=== PATIENT | male | born 1965 | race Caucasian/White ===

== ENCOUNTER 2018-11-20 12:02 | Inpatient (IN) ==
[2018-11-20 12:56] LABS: Alanine Aminotransferase 15 U/L (12-78); Aspartate Aminotransferase 41 U/L (15-37); Blood Urea Nitrogen 44 mg/dl (7-18); Carbon Dioxide 27 mmol/L (21-32); Chloride 97 mmol/L (98-107); Creatinine Clr Calc Pharmacy 38.4 ml/min; Est GFR (African American) 30.8; Est GFR (Non-African American) 26.6; Glucose 78 mg/dl (70-99); Magnesium 1.8 mg/dl (1.8-2.4); Potassium 5.3 mmol/L (3.5-5.1); Sodium 132 mmol/L (136-145)
[2018-11-20 12:56] LABS: Appearance Urine Cloudy (Clear); Bacteria Urine Automated Negative (Negative); Blood Urine Negative (Negative); Color Urine Dark Yellow; Epithelial Cell Urine Auto 20-30 /lpf (0-5); Glucose Urine UA Negative (Negative); Ketones Urine Trace (Negative); Leukocyte Esterase Urine Trace (Negative); Nitrite Urine Positive (Negative); Protein Urine 2+ (Negative); RBC Urine Automated 0-4 /hpf (0-4); Specific Gravity Urine 1.017 (1.000-1.030); Urobilinogen Urine Negative (Negative)
[2018-11-20 12:57] LABS: Hematocrit (blood only) 37.1 % (42-52); Hemoglobin 12.4 g/dL (14.0-18.0); INR 1.2 (0.9-1.1); Mean Corpuscular Hgb Conc 33.4 g/dL (32-36); Mean Platelet Volume 8.9 fL (7.4-10.4); Partial Thromboplastin Ratio 1.2; Partial Thromboplastin Time 31.7 Seconds (21.0-31.0); Platelet Count 61 K/uL (130-400); Prothrombin Time 12.5 Seconds (9.0-12.0); RDW Coefficient of Variation 17.9 % (11.5-14.5); RDW Standard Deviation 61.3 fL (36.4-46.3); Red Blood Count 3.99 M/uL (4.7-6.1); White Blood Count 15.27 K/uL (4.8-10.8)
[2018-11-20 13:01] LABS: Albumin Globulin Ratio 0.5 (0.9-2); Alkaline Phosphatase 60 U/L (45-117); Bilirubin,Total 0.6 mg/dl (0.2-1); Troponin I < 0.015 ng/ml (0-0.045)
[2018-11-20 13:04] LABS: Bilirubin Urine Negative (Negative); Ictotest Urine Negative (Negative)
--- NOTE | 2018-11-20 13:37 | CT Scan Report ---
CT OF THE HEAD WITHOUT CONTRAST CLINICAL HISTORY: Altered mental status. COMPARISON STUDY: Head CT April 18, 2018. TECHNIQUE: Helical axial images of the head were obtained without IV contrast. Automated exposure con trol was utilized for the study. A dose lowering technique was utilized adhering to the principles o f ALARA. FINDINGS: No acute intracranial hemorrhage, midline shift or mass effect is present. The ventricular system is unremarkable. The basilar cisterns are patent. No extra-axial collections are present. Ther e are no findings to suggest acute dural sinus thrombosis or acute territorial infarct. No significan t calvarial abnormalities are present. Visualized portions of the sinuses and mastoid air cells are c lear. Exam is mildly compromised by motion artifact. IMPRESSION: No acute intracranial findings. Electronically signed by: José Manuel Schmitz M.D. 11/20/2018 1:36 PM
[2018-11-20 13:45] LABS: Basophils # (auto) 0.01 K/uL (0-0.2); Basophils % (auto) 0.1 %; Eosinophils # (auto) 0.01 K/uL (0-0.5); Eosinophils % (auto) 0.1 %; Immature Granulocytes # (auto) 0.41 K/uL (0.00-0.02); Immature Granulocytes % (auto) 2.7 %; Lymphocytes # (auto) 1.01 K/uL (1.2-3.4); Lymphocytes % (auto) 6.6 %; Monocytes # (auto) 1.63 K/uL (0.11-0.59); Monocytes % (auto) 10.7 %; Neutrophils % (auto) 79.8 %
--- NOTE | 2018-11-20 13:46 | CT Scan Report ---
ABDOMEN AND PELVIS CT WITHOUT CONTRAST CT DOSE: 3324.64 mGy.cm HISTORY: Acute upper abdominal pain with history of nephrolithiasis upper abd pain eval for stone TECHNIQUE: Multiaxial CT images of the abdomen and pelvis were performed without contrast. A dose lo wering technique was utilized adhering to the principles of ALARA. COMPARISON STUDY: CT abdomen and pelvis 10/23/2013 FINDINGS: Trace pleural effusions with patchy left basilar groundglass and consolidative opacities. Mild subseg mental right basilar atelectasis. Study is limited without use of IV contrast and also secondary to p ositioning of the patient's upper extremities. No pneumatosis or pneumoperitoneum. Imaged inferior ca rdiac chambers are enlarged with coronary arterial calcifications noted. Increased density of the gallbladder lumen is suggestive of probable gallbladder sludge. The liver, s pleen and adrenal glands are unremarkable. Moderate interstitial and peripancreatic edema is noted. N o acute peripancreatic fluid collection identified. Trace abdominopelvic ascites. Kidneys, and ureter s appear unremarkable. No renal or ureteral calculi. Decompressed urinary bladder with Henderson catheter in place. Air within the urinary bladder is likely secondary to instrumentation. Moderate calcified plaque of the abdominal aorta with mild tortuosity. No aneurysm. No adenopathy by CT size criteria. Mild wall thickening of the duodenum, likely reactive. No bowel junction. Colonic diverticulosis with out definitive CT evidence of acute diverticulitis. There is no significant bowel wall thickening tad ntified. Terminal ileum is unremarkable. Gynecomastia. Chronic right hip dislocation with extensive p eriarticular ossifications and large right hip joint effusion. Multilevel degenerative changes of the spine with additional degenerative changes of the left hip and pelvis. IMPRESSION: 1. Findings compatible with acute pancreatitis. No acute peripancreatic fluid collection identified. 2. Trace pleural effusions with trace abdominopelvic ascites. 3. Mild wall thickening of the duodenum, likely reactive. 4. No bowel obstruction, pneumatosis or pneumoperitoneum. 5. Colonic diverticulosis. 6. No renal or ureteral calculi or obstructive uropathy. 7. Additional findings as above. Electronically signed by: Omid Zamora M.D. 11/20/2018 1:45 PM
[2018-11-20] MEDS ORDERED: PIPERACILLIN/TAZOBACTAM 4.5 GM/120 ML BAG IV ONE (13:58)
[2018-11-20] MEDS ORDERED: PIPERACILL/TAZOBAC CONSULT ACTIVE PRN ×2 (13:58→15:55)
[2018-11-20] MEDS ORDERED: NovoLIN-R INSULIN PER UNIT CHARGE IV STA (14:02)
[2018-11-20] MEDS ORDERED: DEXTROSE 50% 50 ML SYRINGE IV STA (14:02)
[2018-11-20] MEDS ORDERED: ALBUTEROL 0.083% NEBU SOLN 3 ML VIAL NEB STA (14:02)
[2018-11-20] MEDS ORDERED: SODIUM CHLORIDE 0.9% 1000ML 1,000 ML IV ONE ×2 (14:03→22:45)
--- NOTE | 2018-11-20 14:34 | XRay Report ---
XR chest 1V portable HISTORY: Altered mental status. COMPARISON: Chest 04/18/2018. FINDINGS: There are low lung volumes. The heart remains enlarged. Chronic subluxation of the bilatera l shoulders remains unchanged. Trace left pleural effusion. Mild central pulmonary vascular congestio n without overt edema. Patchy densities in the left lung base. Questionable lucency within the latera l aspect of the right lung is likely a skinfold. Old, healed bilateral rib fractures. IMPRESSION: 1. Left basilar patchy densities and a trace left pleural effusion. This could represent a pneumonia. 2. Chronic subluxation of the bilateral shoulders is again noted. This remains unchanged. Electronically signed by: Asad Terrazas M.D. 11/20/2018 2:32 PM
--- NOTE | 2018-11-20 15:04 | History & Physical Report ---
Date of Service November 20, 2018 Assessment & Plan (1) Acute metabolic encephalopathy: (2) Pancreatitis: (3) Pneumonia: This is a 53 yr old M who has a significant pmh of HTN, HLD, CKD-3, Vasculitis on chronic prednisone therapy, bipolar depression, post traumatic seizure disorder, chronic thrombocytopenia, RBBB who presents to [facility] ED secondary to altered mental status and abdominal pain x 1 day. In ED pt was alert but confused GCS 11 Hemodynamically patient was stable WBC elevated 15.27, H&H 12.4 and 37.1, platelets 61, sodium 132, potassium 5.3, BUN 44, creatinine 2.6 Lactic acid slightly elevated 2.16, AST 41 but otherwise normal LFTs CT head negative for any acute abnormality CT abdomen pelvis revealed acute pancreatitis, trace pleural effusion and trace abdominal pelvic ascites, gallbladder sludge, diverticulosis Chest x-ray concerning for left basilar opacity and pleural effusion possibly consistent with pneumonia Urinalysis does have positive leukoesterase and nitrites, but negative bacteria -Per patient's sister he has history of UTI which presents as confusion Patient does not meet Sepsis Criteria admit to PCU, continue neurochecks Continue IV antibiotics with Zosyn, obtain mRSA nasal swab if negative will not cover for MRSA given concern for SHIELA NPO - convert levothyroxine and depakote to IV IVF D5NS 150cc/hr due to acute pancreatitis - monitor closely for volume overload follow bmp and lipase levels Abd U/S Limited to RUQ to r/o gall bladder pathology as etiology of pancreatitis - currently unknown no ETOH or NSAID obtain NH3, blood cultures repeat lactic acid and bmp check am cortisol level r/o adrenal insuff consider polypharmacy as etiology of metabolic encephalopathy (4) Acute renal failure superimposed on stage 3 chronic kidney disease: Baseline creatinine 2.0 BUN/creatinine 44 and 2.60 today IVF ordered Follow BMP, repeat today 8 p.m. If no improvement consider consulting nephrology in a.m. Urine sodium, urine creatinine, protein to creatinine ratio, serum osm, urine osm ordered (5) Electrolyte abnormality: Na 132, K 5.3 likely in setting of SHIELA; however keep adrenal insuff on differential am cortisol level repeat bmp 8pm (6) Hypertension: Blood pressure stable On carvedilol will hold on p.o. (7) Hypothyroidism: Continue levothyroxine, convert IV (8) Bipolar disorder: Continue Depakote, will convert to IV while n.p.o. Hold Risperdal for now resume when able to tolerate p.o. or consider conversion to IM (9) Thrombocytopenia: Platelet count stable at 61 Chronically runs between 60 and 100 Had peripheral smear done in admission 04/2018 which was unrevealing (10) DVT prophylaxis: SCDS/TEDS Avoid chemical prophylaxis in setting of platelets 61, chronic thrombocytopenia Disposition: admit to PCU, discharge to be determined Follow up: PCP Dr. Dean upon discharge Patient was seen and examined in collaboration with Dr. Reagan, please see addendum Starting 11/21/18 pt will be under the care of Dr. Leyva History of Present Illness Chief Complaint: Abdominal pain Primary Care Provider: Don Watters MD This is a 53 yr old M who has a significant pmh of HTN, HLD, CKD-3, Vasculitis on chronic prednisone therapy, bipolar depression, post traumatic seizure disorder, chronic thrombocytopenia, RBBB who presents to [facility] ED secondary to altered mental status and abdominal pain. Sister is at bedside and provides history. Pt history unreliable given confusion. He was last known well yesterday morning. Sister saw him this morning and felt him to have increased confusion, "this is how he gets when he has a UTI," difficulty with ADLS, weakness and pt was complaining of abdominal pain. She is aware he had a BM prior to arrival but is unsure if any diarrhea. Denies any f/c/s, syncope, vomitting, complaints of chest pain, sob, palpitations. Pt is mostly confined to a hover round but is able to ambulate with walker to assist with adls. He is functional but disabled at baseline. He has a hx of narcotic overdose and currently does not take any narcotics. Has a medication lock box that dispenses his medications and sister assists with this. Sister denies any known seizures, last 10 years ago had grand mal secondary to trauma, none since. Has been consistent with medications including depakote and risperdal for bipolar. History, PMH, Surgical hx, SH and FH difficulty/unable to obtain secondary to confusion. Obtained from [facility] records Allergies Allergy/AdvReac Type Severity Reaction Status Date / Time aspirin Allergy Unknown Nothing Verified 04/18/18 14:45 with Aspirin. bacitracin Allergy Unknown Rash Verified 04/18/18 14:45 Cephalosporins Allergy Unknown Unknown Verified 04/18/18 14:45 doxycycline Allergy Unknown . Verified 04/18/18 14:45 furosemide Allergy Unknown Oral Verified 04/18/18 14:45 solution - rash levofloxacin Allergy Unknown Rash Verified 04/18/18 14:45 neomycin Allergy Unknown Rash Verified 04/18/18 14:45 polymyxin B Allergy Unknown Rash Verified 04/18/18 14:45 Sulfa (Sulfonamide Allergy Unknown Bactrim - Verified 04/18/18 14:45 Antibiotics) rash. moxifloxacin Allergy Unknown Unverified 04/18/18 14:45 sulfamethoxazole Allergy Unknown Unverified 04/18/18 14:58 [From Bactrim] trimethoprim [From Bactrim] Allergy Unknown Unverified 04/18/18 14:58 Home Medications Home Medications Medication Instructions Recorded Confirmed Type ascorbic acid (vitamin C) [Vitamin 1,000 mg PO DAILY 02/10/18 11/20/18 History C] divalproex 1,000 mg PO BID 02/10/18 11/20/18 History imipramine HCl 25 mg PO TID 02/10/18 11/20/18 History levothyroxine 125 mcg PO QAM 02/10/18 11/20/18 History carvedilol 12.5 mg PO BIDM 04/18/18 11/20/18 History cyanocobalamin (vitamin B-12) 1,000 mcg PO DAILY 04/18/18 11/20/18 History [Vitamin B-12] omega 3-wpe-zec-fish oil [Fish Oil] 1,000 mg PO DAILY 04/18/18 11/20/18 History ranitidine HCl 150 mg PO HS 04/18/18 11/20/18 History risperidone 1 mg PO BID 04/18/18 11/20/18 History vitamin E 400 unit PO DAILY 04/18/18 11/20/18 History prednisone 5 mg PO DAILY 04/23/18 11/20/18 History calcium carbonate-vitamin D3 1 tab PO DAILY 11/20/18 11/20/18 History [Calcium 600 + D(3)] duloxetine [Cymbalta] 60 mg PO DAILY 11/20/18 11/20/18 History Past Med/Surg History Medical History Hypothyroidism (Chronic) Hyperprolactinemia (Chronic) Vasculitis (Chronic) CKD (chronic kidney disease), stage III (Chronic) ALKA (iron deficiency anemia) (Chronic) Post-traumatic seizures (Chronic) Hypertension (Chronic) Chronic pain (Chronic) Bipolar disorder (Chronic) RBBB (Chronic) Hyperlipidemia (Chronic) JHOANA (obstructive sleep apnea) (Chronic) does not use cpap or bipap Reflux esophagitis (Chronic) Goiter (Chronic) 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) Hypertension (Inactive) Surgical History History of fasciotomy (Chronic) History of tracheostomy (Chronic) History of total right hip arthroplasty (Chronic) Family History Other Family history unobtainable due to patient's condition Social History Preferred Language: Wolof Communication Ability: Impaired Shipping And Receiving Associate Required: No Beliefs That Will Affect Care: None Current Living Situation: Family Current Living Situation Comment: Staying in shed at sister's house Other Information That Helps Us Care for You: No Feels Safe at Home: Declines to Answer Smoking Status: Never smoker Tobacco Type: cigarettes and smokeless tobacco Do You Dip or Chew Tobacco: No Second Hand Exposure: No Tobacco Cessation Education Requested by Patient: No Hx Alcohol Use: No Hx Substance Use: No Review of Systems Review of Systems: As noted per HPI, 10 systems reviewed and negative unless noted above. Physical Exam Physical Exam: Gen: Morbidly obese, chronically ill M, lying in bed, confused, unable to answer questions approp Head: Normocephalic, Atraumatic Eyes: Sclera normal, no conjunctival injection, PERRLA, EOMI ENT: Gross hearing intact, normal pharynx, mucous membranes dry Neck: supple, no adenopathy, No JVD, no bruit, Resp: Clear to auscultation b/l with decreased bs at bases and basilar crackles, poor insp effort, no wheeze or rhonci. Normal insp/exp effort, no accessory muscle use CV: Regular rate, regular rhythm, no murmur, rub, gallop, or ectopy Abd: Obese abdomen, tender diffusely with palpation however abdomen soft, nondistended, no rigidity, guarding, rebound +BS x 4 Musculoskeletal: moves extremities active rom x 4, unable to assess strength due to AMS Extremities: ++ Edema b/l pretibial and pedal Skin: warm, moist, no rash, negative turgor, cap refill < 2sec Neuro: Alert and oriented to self only, speech normal, flat mood/affect, cran nerve 2-12 intact grossly : + rubin draining clear yellow urine Results & Data Vital Signs (Past 12 Hours) Vital Signs Temp Pulse Pulse Resp BP Pulse Ox 11/20/18 14:34 77 16 93 11/20/18 12:22 96 11/20/18 12:15 36.3 C L 67 22 130/82 96 Laboratory Results Short CBC 11/20/18 11/20/18 Range/Units 12:20 12:20 WBC 15.27 H (4.8-10.8) K/uL Hgb 12.4 L (14.0-18.0) g/dL Hct 37.1 L (42-52) % Plt Count 61 L (130-400) K/uL Creatinine 2.60 H (0.6-1.4) mg/dl AST 41 H (15-37) U/L BMP 11/20/18 12:20 Sodium 132 L Potassium 5.3 H Chloride 97 L Carbon Dioxide 27 BUN 44 H Creatinine 2.60 H Glucose 78 Calcium 9.0 Cardiac Enzymes 11/20/18 Range/Units 12:20 Troponin I < 0.015 (0-0.045) ng/ml Liver Function 11/20/18 Range/Units 12:20 Total Bilirubin 0.6 (0.2-1) mg/dl AST 41 H (15-37) U/L ALT 15 (12-78) U/L Alkaline Phosphatase 60 (45-117) U/L Albumin 2.0 L (3.4-5.0) gm/dl Urine 11/20/18 Range/Units 12:33 Urine Color Dark Yellow Urine Appearance Cloudy A (Clear) Urine pH 5.0 (4.5-7.5) Ur Specific [place] 1.017 (1.000-1.030) Urine Protein 2+ H (Negative) Urine Glucose (UA) Negative (Negative) Diagnostic Findings Head CT: IMPRESSION: No acute intracranial findings. Abd/Pelvis CT: IMPRESSION: 1. Findings compatible with acute pancreatitis. No acute peripancreatic fluid collection identified. 2. Trace pleural effusions with trace abdominopelvic ascites. 3. Mild wall thickening of the duodenum, likely reactive. 4. No bowel obstruction, pneumatosis or pneumoperitoneum. 5. Colonic diverticulosis. 6. No renal or ureteral calculi or obstructive uropathy. 7. Additional findings as above. CXR: IMPRESSION: 1. Left basilar patchy densities and a trace left pleural effusion. This could represent a pneumonia. 2. Chronic subluxation of the bilateral shoulders is again noted. This remains unchanged. Medications Administered Discontinued Medications Albuterol (Ventolin 0.083% 2.5mg/3ml) 2.5 mg NEB NOW STA Stop: 11/20/18 14:03 Last Admin: 11/20/18 14:34 Dose: 2.5 mg Documented by: [id number] Dextrose (Dextrose 50%) 50 ml IV NOW STA Stop: 11/20/18 14:03 Last Admin: 11/20/18 14:43 Dose: Not Given Documented by: [id number] Sodium Chloride (Nss 1000ml) 1,000 mls @ 999 mls/hr IV .Q1H1M ONE Stop: 11/20/18 15:03 Last Admin: 11/20/18 15:02 Dose: 999 mls/hr Documented by: [id number] Piperacillin Sod/Tazobactam Sod (Zosyn) 4.5 gm in 120 mls @ 240 mls/hr IV NOW ONE Stop: 11/20/18 14:27 Last Admin: 11/20/18 14:48 Dose: 240 mls/hr Documented by: [id number] Insulin Human Regular (Novolin R U-100 Per Unit) 8 units IV NOW STA Stop: 11/20/18 14:03 Last Admin: 11/20/18 14:43 Dose: Not Given Documented by: [id number] ECG Rate (beats per minute): 64 Rhythm: normal sinus Findings: + RBBB Code Status & VTE Plan Code Status Full Code unable to obtain from patient given AMS VTE Prophylaxis Plan VTE Prophylaxis will be ordered: Yes Reason for no VTE drug order: Contraindicated Supervising Physician Co-Signing Physician Notes Patient is a 53-year-old male with history of CKD, vasculitis on chronic prednisone therapy, seizure disorder, hypertension and other problems presents with history of abdominal pain and altered mental status, lethargy. Patient was unable to provide any history and most of the history is obtained from the patient's sister. He was noted to have significant generalized weakness which is unusual for him. Also noted to be complaining of abdominal pain which is diffuse. No known history of home prescription medication overdose. No recent alcohol use. Ammonia levels within normal limits. Please review HPI for complete details of presentation. He was noted to have elevated white count of 15.27. Labs also suggestive of hyponatremia, hypochloremia, hyperkalemia, SHIELA. His creatinine elevated at 2.60. Also noted to have lactic acidosis at 2.6. His lipase elevated at 1105. UA is abnormal, likely contaminated sample. CT head showed no acute intracranial findings. Chest x-ray suggestive of left basilar patchy densities with trace left pleural effusion suggestive of possible pneumonia. CT abdomen suggestive of acute pancreatitis, gallbladder sludge, mild duodenal wall thickening. On exam patient is morbidly obese, chronically appearing, lethargic, no apparent distress, normocephalic atraumatic, decreased breath sounds, basal crackles, abdomen soft, tenderness diffusely, no guarding or rigidity, bowel sounds are heard, bilateral lower extremity edema, S1-S2, no murmur, complete neurological exam could not be performed as patient lethargic. Patient is admitted for management of acute metabolic encephalopathy likely secondary to acute pancreatitis, pneumonia, SHIELA on CKD. Also to rule out UTI. Agree with IV fluids, IV antibiotics. Obtain cultures. N.p.o. for now, aspiration precautions. Monitor renal function. No obstruction noted on CT abdomen. Will monitor electrolytes closely. Hyperkalemia likely secondary to SHIELA. SHIELA likely ATN and also a component of prerenal. Obtain urinary electrolytes. No chemical prophylaxis for DVT due to chronic thrombocytopenia. I personally reviewed the record. Patient is interviewed and examined at bedside. Patient's care is coordinated with Keerthi Louis PA-C. Please refer to the documentation above for details of patient's presentation and for discussion of other issues.
[2018-11-20] MEDS ORDERED: POLYETHYLENE (MIRALAX) 17 GM PACK PO PRN (15:55)
[2018-11-20] MEDS ORDERED: ONDANSETRON INJ 2 MG/ML 2 ML VIAL IV PRN (15:55)
[2018-11-20] MEDS: D5W AND NSS 1,000 ML IV SCH ×2 (16:21→23:04)
[2018-11-20 17:19] LABS: Amphetamines+Metham, Urine Neg (Neg); Barbiturates, Urine Neg (Neg); Benzodiazepine, Urine Neg (Neg); Cocaine, Urine Neg (Neg); MDMA (Ecstacy), Urine Neg (Neg); Methadone, Urine Neg (Neg); Opiate, Urine Neg (Neg); Phencyclidine, Urine Neg (Neg)
[2018-11-20 17:21] LABS: Creatinine Urine Random 46.8 mg/dl; Protein Creatinine Ratio Urine 1.3 (0-0.2); Total Protein Urine Random 62.7 mg/dl (0-11.9)
--- NOTE | 2018-11-20 17:27 | Emergency Department Note ---
Entered by Cammie Savage acting as a scribe for Curtis Travis MD History of Present Illness General Chief complaint: Lethargic Source: patient and other (nursing staff) Limitations: altered mental status History of Present Illness Provider complaint: confusion Onset (ago): hour(s) (today) Location: head Associated symptoms: + shortness of breath and + other (abdominal pain); no chest pain and no headaches The patient is a 53 year old male who presents to the Emergency Department with confusion today. The patient denies having a headache and chest pain but does report having some shortness of breath and abdominal pain. Nursing staff stated that the patient came from home for confusion. Nursing staff states that the patient's sister stated that the patient was having slurred speech. Nursing staff states that the patient has a history of UTIs. Per nursing staff, the patient's home does not have air conditioning. Nursing staff states that the patient's abdomen was distended and his blood sugar was normal. Limited HPI secondary to AMS. Home Medications Home Medications Medication Instructions Recorded Confirmed Type ascorbic acid (vitamin C) [Vitamin 1,000 mg PO DAILY 02/10/18 11/20/18 History C] divalproex 1,000 mg PO BID 02/10/18 11/20/18 History imipramine HCl 25 mg PO TID 02/10/18 11/20/18 History levothyroxine 125 mcg PO QAM 02/10/18 11/20/18 History carvedilol 12.5 mg PO BIDM 04/18/18 11/20/18 History cyanocobalamin (vitamin B-12) 1,000 mcg PO DAILY 04/18/18 11/20/18 History [Vitamin B-12] omega 3-[id number]-bbb-fish oil [Fish Oil] 1,000 mg PO DAILY 04/18/18 11/20/18 History ranitidine HCl 150 mg PO HS 04/18/18 11/20/18 History risperidone 1 mg PO BID 04/18/18 11/20/18 History vitamin E 400 unit PO DAILY 04/18/18 11/20/18 History prednisone 5 mg PO DAILY 04/23/18 11/20/18 History calcium carbonate-vitamin D3 1 tab PO DAILY 11/20/18 11/20/18 History [Calcium 600 + D(3)] duloxetine [Cymbalta] 60 mg PO DAILY 11/20/18 11/20/18 History Allergies Allergy/AdvReac Type Severity Reaction Status Date / Time aspirin Allergy Unknown Nothing Verified 04/18/18 14:45 with Aspirin. bacitracin Allergy Unknown Rash Verified 04/18/18 14:45 Cephalosporins Allergy Unknown Unknown Verified 04/18/18 14:45 doxycycline Allergy Unknown . Verified 04/18/18 14:45 furosemide Allergy Unknown Oral Verified 04/18/18 14:45 solution - rash levofloxacin Allergy Unknown Rash Verified 04/18/18 14:45 neomycin Allergy Unknown Rash Verified 04/18/18 14:45 polymyxin B Allergy Unknown Rash Verified 04/18/18 14:45 Sulfa (Sulfonamide Allergy Unknown Bactrim - Verified 04/18/18 14:45 Antibiotics) rash. moxifloxacin Allergy Unknown Unverified 04/18/18 14:45 sulfamethoxazole Allergy Unknown Unverified 04/18/18 14:58 [From Bactrim] trimethoprim [From Bactrim] Allergy Unknown Unverified 04/18/18 14:58 Past Med/Surg History Medical History Hypothyroidism (Chronic) Hyperprolactinemia (Chronic) Vasculitis (Chronic) CKD (chronic kidney disease), stage III (Chronic) ALKA (iron deficiency anemia) (Chronic) Post-traumatic seizures (Chronic) Hypertension (Chronic) Chronic pain (Chronic) Bipolar disorder (Chronic) RBBB (Chronic) Hyperlipidemia (Chronic) JHOANA (obstructive sleep apnea) (Chronic) does not use cpap or bipap Reflux esophagitis (Chronic) Goiter (Chronic) 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) Hypertension (Inactive) Surgical History History of fasciotomy (Chronic) History of tracheostomy (Chronic) History of total right hip arthroplasty (Chronic) Family History Other Family history unobtainable due to patient's condition Social History Preferred Language: Macedonian Communication Ability: Impaired School Psychology Specialist Required: No Beliefs That Will Affect Care: None Current Living Situation: Family Current Living Situation Comment: Staying in shed at sister's house Other Information That Helps Us Care for You: No Feels Safe at Home: Declines to Answer Smoking Status: Never smoker Tobacco Type: cigarettes and smokeless tobacco Do You Dip or Chew Tobacco: No Second Hand Exposure: No Tobacco Cessation Education Requested by Patient: No Hx Alcohol Use: No Hx Substance Use: No Review of Systems Limited ROS secondary to AMS. Physical Exam Vital Signs Vital Signs - 24 hr 11/20/18 12:15 11/20/18 12:22 Temperature 36.3 C L Temperature Source Oral Sepsis Recent Fever Within 48 Hours No Sepsis New/Unexplained Change in Mental Status No Sepsis Action Taken by Nursing No Action Required Pulse Rate 67 Respiratory Rate 22 Blood Pressure 130/82 Blood Pressure Mean 98 Pulse Oximetry 96 96 Oxygen Delivery Method Room Air Room Air Constitutional: Vital signs reviewed. Eyes: Pupils are equal round reactive to light. Conjunctiva are noninjected. ENT: Pharynx is clear without erythema or exudate. Mucous membranes are moist. Neck supple without meningeal signs. Respiratory: Clear to auscultation bilaterally. Breath sounds are equal bilaterally. Cardiovascular: Regular rate and rhythm. No rubs or gallops. GI: Soft, nondistended. Tenderness in the upper abdomen. No guarding. Bowel sounds are present. Musculoskeletal: No peripheral edema. No lower extremity tenderness. No re dness, swelling, increased warmth or tenderness to the right hip. Integumentary: No cyanosis. Neurological: Awake and oriented x2. Follows most commands. No obvious facial droop. Psychiatric: Unable to assess. Course 1224: The patient was evaluated in room B2. A history and physical were performed. 1355: I spoke to the patient's sister who is now in the room. She stated that she did not call the ambulance for altered mental status but because he had upper abdominal pain and difficulty walking. She states that he has a history of chronic right hip pain. I discussed his test results with them. He states that he does not have a history of pancreatitis and denies alcohol use. 1400: I discussed the patient's case with Keerthi Gonzalez, admitting to Dr. Reagan, who will evaluate the patient for further management. Consultations Consultation #1: Keerthi Gonzalez Time: 14:00 Administered Medications Dextrose/Sodium Chloride (D5w And Nss) 1,000 mls @ 150 mls/hr IV .Q6H40M NIC Stop: 12/20/18 15:54 Last Admin: 11/20/18 16:21 Dose: 150 mls/hr Documented by: [id number] Discontinued Medications Albuterol (Ventolin 0.083% 2.5mg/3ml) 2.5 mg NEB NOW STA Stop: 11/20/18 14:03 Last Admin: 11/20/18 14:34 Dose: 2.5 mg Documented by: [id number] Dextrose (Dextrose 50%) 50 ml IV NOW STA Stop: 11/20/18 14:03 Last Admin: 11/20/18 14:43 Dose: Not Given Documented by: [id number] Sodium Chloride (Nss 1000ml) 1,000 mls @ 999 mls/hr IV .Q1H1M ONE Stop: 11/20/18 15:03 Last Infusion: 11/20/18 15:58 Dose: 0 mls/hr Documented by: [id number] Infusion: 11/20/18 15:58 Dose: 0 mls/hr Documented by: [id number] Admin: 11/20/18 15:02 Dose: 999 mls/hr Documented by: [id number] Piperacillin Sod/Tazobactam Sod (Zosyn) 4.5 gm in 120 mls @ 240 mls/hr IV NOW ONE Stop: 11/20/18 14:27 Last Admin: 11/20/18 14:48 Dose: 240 mls/hr Documented by: [id number] Insulin Human Regular (Novolin R U-100 Per Unit) 8 units IV NOW STA Stop: 11/20/18 14:03 Last Admin: 11/20/18 14:43 Dose: Not Given Documented by: [id number] Medical Decision Making Differential Diagnosis Differentials include stroke, metabolic derangement, encephalopathy, infection, gallbladder disease, pancreatitis, and ICH. Medical Records Attestation: I reviewed the patient's medical records. I did perform a limited focused review of portions of the patient's old chart on the electronic medical record. The patient was admitted in April last year for altered mental status because he took too many Oxycodone. He also had thrombocytopenia and his altered mental status was thought to be secondary to the overdose. Home Medications Current Medication List: was personally reviewed by me Laboratory Data Attestation: I reviewed the patient's lab results. Result diagrams: 11/20/18 12:20 11/20/18 12:20 Lab Results 11/20/18 11/20/18 11/20/18 Range/Units 12:20 12:20 12:20 WBC 15.27 H (4.8-10.8) K/uL RBC 3.99 L (4.7-6.1) M/uL Hgb 12.4 L (14.0-18.0) g/dL Hct 37.1 L (42-52) % MCV 93.0 (80-100) fL MCH 31.1 (25-34) pg MCHC 33.4 (32-36) g/dL RDW Std Deviation 61.3 H (36.4-46.3) fL RDW Coeff of Debra 17.9 H (11.5-14.5) % Plt Count 61 L (130-400) K/uL MPV 8.9 (7.4-10.4) fL Immature Gran % (Auto) 2.7 % Neut % (Auto) 79.8 % Lymph % (Auto) 6.6 % Catron % (Auto) 10.7 % Eos % (Auto) 0.1 % Baso % (Auto) 0.1 % Immature Gran # (Auto) 0.41 H (0.00-0.02) K/uL Neut # (Auto) 12.20 H (1.4-6.5) K/uL Lymph # (Auto) 1.01 L (1.2-3.4) K/uL Catron # (Auto) 1.63 H (0.11-0.59) K/uL Eos # (Auto) 0.01 (0-0.5) K/uL Baso # (Auto) 0.01 (0-0.2) K/uL PT 12.5 H (9.0-12.0) Seconds INR 1.2 H (0.9-1.1) APTT 31.7 H (21.0-31.0) Seconds PTT Ratio 1.2 Sodium 132 L (136-145) mmol/L Potassium 5.3 H (3.5-5.1) mmol/L Chloride 97 L (98-107) mmol/L Carbon Dioxide 27 (21-32) mmol/L Anion Gap 8.0 (3-11) BUN 44 H (7-18) mg/dl Creatinine 2.60 H (0.6-1.4) mg/dl Est Cr Clr Drug Dosing 38.4 ml/min Est GFR ( Amer) 30.8 Est GFR (Non-Af Amer) 26.6 BUN/Creatinine Ratio 17.0 (10-20) Glucose 78 (70-99) mg/dl Osmolality (280-300) mOsm/kg POC Lactic Acid Ivan (0.90-1.70) mmol/L Calcium 9.0 (8.5-10.1) mg/dl Magnesium 1.8 (1.8-2.4) mg/dl Total Bilirubin 0.6 (0.2-1) mg/dl AST 41 H (15-37) U/L ALT 15 (12-78) U/L Alkaline Phosphatase 60 (45-117) U/L Troponin I < 0.015 (0-0.045) ng/ml Total Protein 6.0 L (6.4-8.2) gm/dl Albumin 2.0 L (3.4-5.0) gm/dl Globulin 4.0 (2.5-4.0) gm/dl Albumin/Globulin Ratio 0.5 L (0.9-2) Lipase (73-393) U/L Urine Color Urine Appearance (Clear) Urine pH (4.5-7.5) Ur Specific [place] (1.000-1.030) Urine Protein (Negative) Urine Glucose (UA) (Negative) Urine Ketones (Negative) Urine Blood (Negative) Urine Nitrite (Negative) Urine Bilirubin (Negative) Urine Urobilinogen (Negative) Ur Leukocyte Esterase (Negative) Urine WBC (Auto) (0-5) /hpf Urine RBC (Auto) (0-4) /hpf U Hyaline Cast (Auto) (0-5) /lpf U Epithel Cells (Auto) (0-5) /lpf Urine Bacteria (Auto) (Negative) 11/20/18 11/20/18 11/20/18 Range/Units 12:20 12:20 12:24 WBC (4.8-10.8) K/uL RBC (4.7-6.1) M/uL Hgb (14.0-18.0) g/dL Hct (42-52) % MCV (80-100) fL MCH (25-34) pg MCHC (32-36) g/dL RDW Std Deviation (36.4-46.3) fL RDW Coeff of Debra (11.5-14.5) % Plt Count (130-400) K/uL MPV (7.4-10.4) fL Immature Gran % (Auto) % Neut % (Auto) % Lymph % (Auto) % Catron % (Auto) % Eos % (Auto) % Baso % (Auto) % Immature Gran # (Auto) (0.00-0.02) K/uL Neut # (Auto) (1.4-6.5) K/uL Lymph # (Auto) (1.2-3.4) K/uL Catron # (Auto) (0.11-0.59) K/uL Eos # (Auto) (0-0.5) K/uL Baso # (Auto) (0-0.2) K/uL PT (9.0-12.0) Seconds INR (0.9-1.1) APTT (21.0-31.0) Seconds PTT Ratio Sodium (136-145) mmol/L Potassium (3.5-5.1) mmol/L Chloride (98-107) mmol/L Carbon Dioxide (21-32) mmol/L Anion Gap (3-11) BUN (7-18) mg/dl Creatinine (0.6-1.4) mg/dl Est Cr Clr Drug Dosing ml/min Est GFR ( Amer) Est GFR (Non-Af Amer) BUN/Creatinine Ratio (10-20) Glucose (70-99) mg/dl Osmolality 289 (280-300) mOsm/kg POC Lactic Acid Ivan 2.16 H (0.90-1.70) mmol/L Calcium (8.5-10.1) mg/dl Magnesium (1.8-2.4) mg/dl Total Bilirubin (0.2-1) mg/dl AST (15-37) U/L ALT (12-78) U/L Alkaline Phosphatase (45-117) U/L Troponin I (0-0.045) ng/ml Total Protein (6.4-8.2) gm/dl Albumin (3.4-5.0) gm/dl Globulin (2.5-4.0) gm/dl Albumin/Globulin Ratio (0.9-2) Lipase 1105 H (73-393) U/L Urine Color Urine Appearance (Clear) Urine pH (4.5-7.5) Ur Specific [place] (1.000-1.030) Urine Protein (Negative) Urine Glucose (UA) (Negative) Urine Ketones (Negative) Urine Blood (Negative) Urine Nitrite (Negative) Urine Bilirubin (Negative) Urine Urobilinogen (Negative) Ur Leukocyte Esterase (Negative) Urine WBC (Auto) (0-5) /hpf Urine RBC (Auto) (0-4) /hpf U Hyaline Cast (Auto) (0-5) /lpf U Epithel Cells (Auto) (0-5) /lpf Urine Bacteria (Auto) (Negative) 11/20/18 Range/Units 12:33 WBC (4.8-10.8) K/uL RBC (4.7-6.1) M/uL Hgb (14.0-18.0) g/dL Hct (42-52) % MCV (80-100) fL MCH (25-34) pg MCHC (32-36) g/dL RDW Std Deviation (36.4-46.3) fL RDW Coeff of Debra (11.5-14.5) % Plt Count (130-400) K/uL MPV (7.4-10.4) fL Immature Gran % (Auto) % Neut % (Auto) % Lymph % (Auto) % Catron % (Auto) % Eos % (Auto) % Baso % (Auto) % Immature Gran # (Auto) (0.00-0.02) K/uL Neut # (Auto) (1.4-6.5) K/uL Lymph # (Auto) (1.2-3.4) K/uL Catron # (Auto) (0.11-0.59) K/uL Eos # (Auto) (0-0.5) K/uL Baso # (Auto) (0-0.2) K/uL PT (9.0-12.0) Seconds INR (0.9-1.1) APTT (21.0-31.0) Seconds PTT Ratio Sodium (136-145) mmol/L Potassium (3.5-5.1) mmol/L Chloride (98-107) mmol/L Carbon Dioxide (21-32) mmol/L Anion Gap (3-11) BUN (7-18) mg/dl Creatinine (0.6-1.4) mg/dl Est Cr Clr Drug Dosing ml/min Est GFR ( Amer) Est GFR (Non-Af Amer) BUN/Creatinine Ratio (10-20) Glucose (70-99) mg/dl Osmolality (280-300) mOsm/kg POC Lactic Acid Ivan (0.90-1.70) mmol/L Calcium (8.5-10.1) mg/dl Magnesium (1.8-2.4) mg/dl Total Bilirubin (0.2-1) mg/dl AST (15-37) U/L ALT (12-78) U/L Alkaline Phosphatase (45-117) U/L Troponin I (0-0.045) ng/ml Total Protein (6.4-8.2) gm/dl Albumin (3.4-5.0) gm/dl Globulin (2.5-4.0) gm/dl Albumin/Globulin Ratio (0.9-2) Lipase (73-393) U/L Urine Color Dark Yellow Urine Appearance Cloudy A (Clear) Urine pH 5.0 (4.5-7.5) Ur Specific [place] 1.017 (1.000-1.030) Urine Protein 2+ H (Negative) Urine Glucose (UA) Negative (Negative) Urine Ketones Trace H (Negative) Urine Blood Negative (Negative) Urine Nitrite Positive A (Negative) Urine Bilirubin Negative (Negative) Urine Urobilinogen Negative (Negative) Ur Leukocyte Esterase Trace H (Negative) Urine WBC (Auto) 1-5 (0-5) /hpf Urine RBC (Auto) 0-4 (0-4) /hpf U Hyaline Cast (Auto) 5-10 H (0-5) /lpf U Epithel Cells (Auto) 20-30 H (0-5) /lpf Urine Bacteria (Auto) Negative (Negative) Imaging Data Radiologist's Impression: Radiology results as stated below per my review and the radiologist's interpretation: CT OF THE HEAD WITHOUT CONTRAST CLINICAL HISTORY: Altered mental status. COMPARISON STUDY: Head CT April 18, 2018. TECHNIQUE: Helical axial images of the head were obtained without IV contrast. Automated exposure control was utilized for the study. A dose lowering technique was utilized adhering to the principles of ALARA. FINDINGS: No acute intracranial hemorrhage, midline shift or mass effect is present. The ventricular system is unremarkable. The basilar cisterns are patent. No extra-axial collections are present. There are no findings to suggest acute dural sinus thrombosis or acute territorial infarct. No significant calvarial abnormalities are present. Visualized portions of the sinuses and mastoid air cells are clear. Exam is mildly compromised by motion artifact. IMPRESSION: No acute intracranial findings. Electronically signed by: José Manuel Schmitz M.D. 11/20/2018 1:36 PM ABDOMEN AND PELVIS CT WITHOUT CONTRAST CT DOSE: 3324.64 mGy.cm HISTORY: Acute upper abdominal pain with history of nephrolithiasis upper abd pain eval for stone TECHNIQUE: Multiaxial CT images of the abdomen and pelvis were performed without contrast. A dose lowering technique was utilized adhering to the principles of ALARA. COMPARISON STUDY: CT abdomen and pelvis 10/23/2013 FINDINGS: Trace pleural effusions with patchy left basilar groundglass and consolidative opacities. Mild subsegmental right basilar atelectasis. Study is limited without use of IV contrast and also secondary to positioning of the patient's upper extremities. No pneumatosis or pneumoperitoneum. Imaged inferior cardiac chambers are enlarged with coronary arterial calcifications noted. Increased density of the gallbladder lumen is suggestive of probable gallbladder sludge. The liver, spleen and adrenal glands are unremarkable. Moderate interstitial and peripancreatic edema is noted. No acute peripancreatic fluid collection identified. Trace abdominopelvic ascites. Kidneys, and ureters appear unremarkable. No renal or ureteral calculi. Decompressed urinary bladder with Henderson catheter in place. Air within the urinary bladder is likely secondary to instrumentation. Moderate calcified plaque of the abdominal aorta with mild tortuosity. No aneurysm. No adenopathy by CT size criteria. Mild wall thickening of the duodenum, likely reactive. No bowel junction. Colonic diverticulosis without definitive CT evidence of acute diverticulitis. There is no significant bowel wall thickening identified. Terminal ileum is unremarkable. Gynecomastia. Chronic right hip dislocation with extensive periarticular ossifications and large right hip joint effusion. Multilevel degenerative changes of the spine with additional degenerative changes of the left hip and pelvis. IMPRESSION: 1. Findings compatible with acute pancreatitis. No acute peripancreatic fluid collection identified. 2. Trace pleural effusions with trace abdominopelvic ascites. 3. Mild wall thickening of the duodenum, likely reactive. 4. No bowel obstruction, pneumatosis or pneumoperitoneum. 5. Colonic diverticulosis. 6. No renal or ureteral calculi or obstructive uropathy. 7. Additional findings as above. Electronically signed by: Omid Zamora M.D. 11/20/2018 1:45 PM XR chest 1V portable HISTORY: Altered mental status. COMPARISON: Chest 04/18/2018. FINDINGS: There are low lung volumes. The heart remains enlarged. Chronic subluxation of the bilateral shoulders remains unchanged. Trace left pleural effusion. Mild central pulmonary vascular congestion without overt edema. Patchy densities in the left lung base. Questionable lucency within the lateral aspect of the right lung is likely a skinfold. Old, healed bilateral rib fractures. IMPRESSION: 1. Left basilar patchy densities and a trace left pleural effusion. This could represent a pneumonia. 2. Chronic subluxation of the bilateral shoulders is again noted. This remains unchanged. Electronically signed by: Asad Terrazas M.D. 11/20/2018 2:32 PM ECG Data Attestation: I personally reviewed and interpreted this ECG as follows: Indication: altered mental status Rate (beats per minute): 64 Rhythm: normal sinus Findings: + RBBB; no PVC Blood Pressure Blood Pressure Findings: Normal blood pressure MDM Narrative I did evaluate the patient as noted above. I did obtain history from the patient as well as the nurse due to his altered mental status. I later obtain history from his sister who contradicted with the nurse told me. I was initially told that the patient was sent here for altered mental status and slurred speech. She states that she called the ambulance because he was having significant abdominal pain and had trouble walking, although he has chronic right hip pain. It was not until later in the course that his sister arrived in the ED. I initially called her and left a message on her cell phone after my first evaluation but did not hear back from her. IV access was established. The patient was placed on a continuous is project manager. I did order and personally review the patient's 12-lead EKG as described above. There is no evidence of acute ischemia. I did order and personally reviewed the images of the patient's chest x-ray as described above. There is a trace pleural effusion on the left s tad with some patchy densities. I did order a urine analysis. This was a cath specimen. There is evidence of infection. Blood cultures were obtained. I did order and review the patient's blood work as noted in the electronic medical record. His white count is elevated. He has mild anemia. He is low platelets. His creatinine is 2.6 above his baseline of 1.7. His potassium is 5.3. Due to the hyperkalemia I did treat him with insulin and glucose IV. He was also given albuterol via nebulizer. His lipase is over thousand. I did order a CT of the head abdomen and pelvis. I did review the images myself as well as the radiology report as described above. The patient has evidence of pancreatitis. No acute intracranial process. I did reassess the patient again. I did talk to him and his sister about his test results. He denies drinking alcohol. He does have some gallbladder sludge on his CAT scan but no signs of stone or cholecystitis. I did recommend hospitalization for further care of his symptoms. I did treat him with Zosyn IV. He and his sister state that he is not penicillin allergic. I did discuss the case with the hospitalist and pillowcase maker. Impression & Plan Acute pancreatitis, SHIELA (acute kidney injury), Hyperkalemia, Hip pain, right, UTI (urinary tract infection), Thrombocytopenia, Altered mental status Critical Care Time Critical Care Time: Yes Total Critical Care Time: 35 I have personally spent approximately 35 minutes of critical care time in the direct management of this patient. This includes bedside care, interpretation of diagnostic studies, and testing, discussion with consultants, patient, and family members, and other required patient management activities. This approximate 35 minutes is in excess of all separately billable procedures. Discharge Plan Visit Data *Final* Discharge Date/Time: 11/20/18 15:10 Chief Complaint: Lethargic ED Provider: Curtis Travis Discharge Problem: Acute pancreatitis, SHIELA (acute kidney injury), Hyperkalemia, Hip pain, right, UTI (urinary tract infection), Thrombocytopenia, Altered mental status Patient Disposition: Admitted As Inpatient Discharge Instructions Interventions: ED Discharge Assessment Last Done: 11/20/18 15:10 Discharge Problem: Acute pancreatitis Qualifiers: Pancreatitis type: unspecified pancreatitis type Acute pancreatitis complication: unspecified Qualified Code(s): K85.90 - Acute pancreatitis without necrosis or infection, unspecified UTI (urinary tract infection) Qualifiers: Urinary tract infection type: site unspecified Hematuria presence: without hematuria Qualified Code(s): N39.0 - Urinary tract infection, site not specified Altered mental status Qualifiers: Altered mental status type: unspecified Qualified Code(s): R41.82 - Altered mental status, unspecified The scribe's documentation has been prepared under my direction and personally reviewed by me in its entirety. I confirm that the note above accurately reflects all work, treatment, procedures, and medical decision making performed by me.
--- NOTE | 2018-11-20 18:32 | Ultrasound Report ---
US abdomen limited CLINICAL HISTORY: 53 years-old Male presenting with RUQ, Gallbladder. TECHNIQUE: Real-time grayscale and limited color Doppler ultrasound imaging of the abdomen limited to the right upper quadrant was performed. COMPARISON: CT from earlier today. FINDINGS: Pancreas: Largely obscured due to overlying bowel gas. Liver: Normal echogenicity and echotexture. The liver measures 15.8 cm in maximal sagittal dimension. No sonographic evidence of hepatic mass. Main portal vein patent with normal directional flow. Biliary: No intrahepatic biliary ductal dilatation. Common bile duct measures up to 3 mm in diameter. Gallbladder: Gallbladder sludge. Gallbladder wall top normal in thickness. No evidence of gallstones, gallbladder distention, or pericholecystic fluid or inflammatory change. Sonographic Hatfield's sign n egative. Right kidney: Grossly normal in appearance without evidence of hydronephrosis. Ascites: Trace perihepatic ascites. Other: None. IMPRESSION: 1. Gallbladder sludge. No cholelithiasis or biliary ductal dilatation. 2. Trace perihepatic ascites. This is likely reactive in the setting of known pancreatitis. Electronically signed by: Leonel Sanchez M.D. 11/20/2018 6:31 PM
[2018-11-20] MEDS: PIPERACILLIN/TAZOBACTAM 4.5 GM in DEXTROSE 5% 100 ML IV SCH (20:20)
[2018-11-20 21:49] LABS: Calcium 8.9 mg/dl (8.5-10.1); Creatinine Clr Calc Pharmacy 41.3 ml/min; Est GFR (African American) 33.6; Potassium 4.6 mmol/L (3.5-5.1)
[2018-11-20] MEDS ORDERED: MAGNESIUM SULFATE / D5W 1 GM/100 ML BAG IV ONE (22:53)
[2018-11-21] MEDS ORDERED: SODIUM CHLORIDE 0.9% 1000ML 1,000 ML IV SCH
[2018-11-21] MEDS: VALPROATE SOD 1,000 MG in DEXTROSE 5% 50 ML IV SCH ×2 (01:15→07:59)
[2018-11-21 03:26] LABS: Hematocrit (blood only) 32.4 % (42-52); Hemoglobin 10.7 g/dL (14.0-18.0); Mean Corpuscular Volume 94.2 fL (80-100); RDW Coefficient of Variation 18.2 % (11.5-14.5); RDW Standard Deviation 62.7 fL (36.4-46.3); Red Blood Count 3.44 M/uL (4.7-6.1)
[2018-11-21 03:40] LABS: Mean Platelet Volume 9.4 fL (7.4-10.4); Platelet Count 52 K/uL (130-400)
[2018-11-21 03:47] LABS: Albumin Level 1.5 gm/dl (3.4-5.0); BUN Creatinine Ratio 19.2 (10-20); Calcium 8.1 mg/dl (8.5-10.1); Creatinine Clr Calc Pharmacy 42.9 ml/min; Est GFR (African American) 35.2; Est GFR (Non-African American) 30.3; Potassium 4.3 mmol/L (3.5-5.1)
[2018-11-21 03:50] LABS: Albumin Globulin Ratio 0.4 (0.9-2); Bilirubin,Total 0.4 mg/dl (0.2-1); Globulin 3.6 gm/dl (2.5-4.0); Total Protein 5.1 gm/dl (6.4-8.2)
[2018-11-21] MEDS: PIPERACILLIN/TAZOBACTAM 4.5 GM in DEXTROSE 5% 100 ML IV SCH ×3 (03:50→18:20)
[2018-11-21 04:10] LABS: Echinocytes 1+; Eosinophils # (auto) 0.01 K/uL (0-0.5); Eosinophils % (auto) 0.1 %; Immature Granulocytes # (auto) 0.09 K/uL (0.00-0.02); Lymphocytes # (auto) 0.92 K/uL (1.2-3.4); Monocytes % (auto) 10.9 %; Neutrophils # (auto) 7.18 K/uL (1.4-6.5)
[2018-11-21] MEDS: LACTATED RINGER'S 1,000 ML IV SCH ×5 (05:00→19:43)
[2018-11-21] MEDS ORDERED: PNEUMOCOCCAL POLYSACCHARIDES 25 MCG/0.5 ML VIAL/SYR IM ONE (08:15)
[2018-11-21] MEDS ORDERED: PNEUMOCOCCAL ADMINISTRATION CHARGE ONE (08:15)
[2018-11-21] MEDS: LEVOTHYROXINE SODIUM 62.5 MCG in SYRINGE 0 ML IV SCH (08:21)
[2018-11-21] MEDS: CALCIUM 600MG + VIT D 400 IU TAB PO SCH (11:34)
[2018-11-21] MEDS: DULOXETINE HCL 60 MG CAP PO SCH (11:34)
[2018-11-21] MEDS: CYANOCOBALAMIN 500 MCG TABLET (VITAMIN B-12) PO SCH (11:34)
[2018-11-21] MEDS: predniSONE 5 MG TAB PO SCH (11:34)
[2018-11-21] MEDS: risperiDONE 1 MG TABLET PO SCH ×2 (11:34→21:16)
[2018-11-21] MEDS: IMIPRAMINE HCL 25 MG TAB PO SCH ×2 (12:56→21:16)
--- NOTE | 2018-11-21 15:48 | Hospitalist Progress Note ---
Date of Service November 21, 2018 Assessment & Plan (1) Acute metabolic encephalopathy: This is a 53 yr old M who has a significant pmh of HTN, HLD, CKD-3, Vasculitis on chronic prednisone therapy, bipolar depression, post traumatic seizure disorder, chronic thrombocytopenia, RBBB who presents to [facility] ED secondary to altered mental status and abdominal pain x 1 day. Likely secondary to infection, UTI versus pneumonia Minimal improvement as of this morning Responding to vocal commands but going back to sleep right away No apparent distress We will continue current medications Present on Admission?: Yes (2) Pancreatitis: Presented with abdominal pain and nausea CT scan did show:CT abdomen pelvis revealed acute pancreatitis, trace pleural effusion and trace abdominal pelvic ascites, gallbladder sludge, diverticulosis Kept on n.p.o. and administered IV fluid No narcotics were administered Clinically better with normalization of lipase Will start clears and advance as tolerated (3) Pneumonia: Chest x-ray concerning for left basilar opacity and pleural effusion possibly consistent with pneumonia Urinalysis does have positive leukoesterase and nitrites, but negative bacteria -Per patient's sister he has history of UTI which presents as confusion Patient does not meet Sepsis Criteria Continue IV antibiotics with Zosyn, obtain mRSA nasal swab if negative will not cover for MRSA given concern for SHIELA Abd U/S Limited to RUQ to r/o gall bladder pathology as etiology of pancreatitis - currently unknown no ETOH or NSAID obtain NH3, blood cultures (4) Acute renal failure superimposed on stage 3 chronic kidney disease: Baseline creatinine 2.0 BUN/creatinine 44 and 2.60 today IVF ordered Follow BMP, repeat today 8 p.m. Daily and has been improving (5) Electrolyte abnormality: Na 132, K 5.3 likely in setting of SHIELA; however keep adrenal insuff on differential am cortisol level-within normal limit Electrolytes have been normal as of this morning (6) Hypertension: Blood pressure stable On carvedilol will hold on p.o. (7) Hypothyroidism: Continue levothyroxine, convert IV (8) Bipolar disorder: Continue Depakote, will convert to IV while n.p.o. Hold Risperdal for now resume when able to tolerate p.o. or consider conversion to IM (9) Thrombocytopenia: Platelet count stable at 61 Chronically runs between 60 and 100 Had peripheral smear done in admission 04/2018 which was unrevealing Platelet remains low at 52 (10) DVT prophylaxis: SCDS/TEDS Avoid chemical prophylaxis in setting of platelets 61, chronic thrombocytopenia Discussed with the sister in detail Updated about present condition Will try to start solid food as soon as possible and the medications Will advise PT and OT evaluation Subjective 11/21 Patient was seen and examined in telemetry unit This is a 53 yr old M who has a significant pmh of HTN, HLD, CKD-3, Vasculitis on chronic prednisone therapy, bipolar depression, post traumatic seizure disorder, chronic thrombocytopenia, RBBB who presents to [facility] ED secondary to altered mental status and abdominal pain x 1 day Noted to have acute pancreatitis on CT of the abdomen and pelvis with possible UTI Remains very drowsy and lethargic Denies any acute pain and/or heart symptoms Review of Systems Review of Systems: All systems reviewed and are unremarkable except as noted below Constitutional: + fatigue, + malaise, + weakness and + problem reported (Remains severely lethargic. Responds to commands and goes back to sleep immediately after that) Respiratory: no cough and no dyspnea Cardiovascular: no chest pain Gastrointestinal: + abdominal pain (Denies any pain during examination) Neurologic: + problem reported (Remains lethargic. Minimally communicative, responding to vocal comments and going back to sleep right away) Physical Exam Physical Exam: Drowsy and lethargic without any symptoms in the Constitutional: well developed, well nourished and + ill appearing Eyes: PERRL, conjunctivae normal, anicteric sclerae ENMT: external ear and nose normal, oropharynx normal Neck: trachea midline, no thyromegaly Respiratory: normal respiratory effort; no respiratory distress Auscultation: lungs clear to auscultation bilaterally Gastrointestinal (Abdomen): Inspection/Auscultation: abdomen normal to inspection and normal bowel sounds Percussion/Palpation: abdomen soft; abdomen nontender Musculoskeletal: No acute arthritis in any of the joint Neurologic: Very drowsy and less responsive to verbal commands and/or painful stimuli Lymphatic: no cervical or axillary lymphadenopathy Results & Data Vital Signs (Past 12 Hours) Vital Signs Temp Pulse Pulse Resp BP Pulse Ox 11/21/18 15:11 36.8 C 55 L 16 120/73 94 11/21/18 11:45 36.4 C L 55 L 19 117/63 96 11/21/18 07:04 36.5 C 60 20 122/76 96 11/21/18 05:06 36.7 C 11/21/18 04:04 37.5 C 89 20 121/72 92 Laboratory Results Short CBC 11/21/18 Range/Units 03:15 WBC 9.20 (4.8-10.8) K/uL Hgb 10.7 L (14.0-18.0) g/dL Hct 32.4 L (42-52) % Plt Count 52 L (130-400) K/uL BMP 11/20/18 11/21/18 21:25 03:15 Sodium 135 L 135 L Potassium 4.6 4.3 Chloride 101 102 Carbon Dioxide 26 28 BUN 48 H 45 H Creatinine 2.42 H 2.33 H Glucose 124 H 114 H Calcium 8.9 8.1 L Liver Function 11/21/18 Range/Units 03:15 Total Bilirubin 0.4 (0.2-1) mg/dl AST 25 (15-37) U/L ALT 11 L (12-78) U/L Alkaline Phosphatase 43 L (45-117) U/L Albumin 1.5 L (3.4-5.0) gm/dl Medications Administered Current Inpatient Medications Acetaminophen (Tylenol) 650 mg PO Q4H PRN PRN Reason: Pain or Fever Stop: 12/20/18 15:54 Carvedilol (Coreg) 12.5 mg PO BIDM [facility] Stop: 12/21/18 16:59 Cyanocobalamin (Vitamin B-12) 1,000 mcg PO DAILY [facility] Stop: 12/21/18 11:14 Last Admin: 11/21/18 11:34 Dose: Not Given Documented by: Divalproex Sodium (Depakote Delay Release) 1,000 mg PO BID [facility] Stop: 12/21/18 20:59 Duloxetine HCl (Cymbalta) 60 mg PO DAILY [facility] Stop: 12/21/18 11:14 Last Admin: 11/21/18 11:34 Dose: Not Given Documented by: Levothyroxine Sodium 62.5 mcg/ (Syringe) 3.125 mls @ 2 mls/min IV DAILY@0900 [facility] Stop: 12/21/18 08:59 Last Admin: 11/21/18 08:21 Dose: 2 mls/min Documented by: Piperacillin Sod/Tazobactam (Sod 4.5 gm/ Dextrose) 120 mls @ 30 mls/hr IV Q8H [facility]; Protocol Stop: 11/30/18 18:59 Last Infusion: 11/21/18 15:09 Dose: Infused Documented by: Lactated Ringer's (Lr) 1,000 mls @ 200 mls/hr IV .Q5H [facility] Stop: 12/21/18 00:00 Last Admin: 11/21/18 15:09 Dose: 200 mls/hr Documented by: Valproic Acid 1,000 mg/ (Dextrose) 60 mls @ 55 mls/hr IV BID [facility] Stop: 12/21/18 00:44 Last Infusion: 11/21/18 09:17 Dose: Infused Documented by: Imipramine HCl (Tofranil) 25 mg PO TID [facility] Stop: 12/21/18 13:59 Last Admin: 11/21/18 12:56 Dose: Not Given Documented by: Levothyroxine Sodium (Synthroid) 125 mcg PO DAILYBB [facility] Stop: 12/22/18 06:29 Miscellaneous Information (Consult) 1 ea N/A UD PRN PRN Reason: Consult Stop: 12/20/18 15:54 Multivitamins/Minerals (Caltrate Plus) 1 tab PO DAILY [facility] Stop: 12/21/18 11:14 Last Admin: 11/21/18 11:34 Dose: Not Given Documented by: Ondansetron HCl (Zofran) 4 mg IV Q6H PRN PRN Reason: Nausea Stop: 12/20/18 15:54 Last Admin: 11/20/18 20:53 Dose: 4 mg Documented by: Polyethylene Glycol (Miralax Powder Packet) 17 gm PO DAILY PRN PRN Reason: Constipation Stop: 12/20/18 15:54 Prednisone (Prednisone) 5 mg PO DAILY [facility] Stop: 12/21/18 11:14 Last Admin: 11/21/18 11:34 Dose: Not Given Documented by: Ranitidine HCl (Zantac) 150 mg PO HS [facility] Stop: 12/21/18 20:59 Risperidone (Risperdal) 1 mg PO BID [facility] Stop: 12/21/18 11:14 Last Admin: 11/21/18 11:34 Dose: Not Given Documented by:
[2018-11-21] MEDS: ACETAMINOPHEN 325 MG TAB PO PRN (16:46)
[2018-11-21] MEDS: CARVEDILOL 12.5 MG TAB PO SCH (16:48)
[2018-11-21] MEDS: VALPROATE SOD 500 MG in DEXTROSE 5% 50 ML IV SCH (21:34)
[2018-11-22] MEDS: LACTATED RINGER'S 1,000 ML IV SCH ×3 (00:34→10:37)
[2018-11-22] MEDS: PIPERACILLIN/TAZOBACTAM 4.5 GM in DEXTROSE 5% 100 ML IV SCH ×3 (03:04→20:57)
[2018-11-22 06:19] LABS: Hematocrit (blood only) 32.7 % (42-52); Hemoglobin 10.4 g/dL (14.0-18.0); Mean Corpuscular Hgb Conc 31.8 g/dL (32-36); Mean Corpuscular Volume 95.6 fL (80-100); Nucleated RBC # (auto) 0.03 K/uL (0-0); Nucleated RBC % (auto) 0.7 %; RDW Coefficient of Variation 18.3 % (11.5-14.5); RDW Standard Deviation 64.7 fL (36.4-46.3); Red Blood Count 3.42 M/uL (4.7-6.1); White Blood Count 4.61 K/uL (4.8-10.8)
[2018-11-22 06:30] LABS: Mean Platelet Volume 9.1 fL (7.4-10.4); Platelet Count 43 K/uL (130-400)
[2018-11-22 06:47] LABS: BUN Creatinine Ratio 21.2 (10-20); Calcium 8.9 mg/dl (8.5-10.1); Creatinine Clr Calc Pharmacy 54.8 ml/min; Est GFR (African American) 46.2; Est GFR (Non-African American) 39.8; Magnesium 1.9 mg/dl (1.8-2.4); Phosphorus 4.2 mg/dl (2.5-4.9); Potassium 4.3 mmol/L (3.5-5.1)
[2018-11-22 07:01] LABS: Basophils # (auto) 0.01 K/uL (0-0.2); Basophils % (auto) 0.2 %; Eosinophils # (auto) 0.06 K/uL (0-0.5); Eosinophils % (auto) 1.3 %; Immature Granulocytes # (auto) 0.02 K/uL (0.00-0.02); Immature Granulocytes % (auto) 0.4 %; Lymphocytes # (auto) 0.53 K/uL (1.2-3.4); Lymphocytes % (auto) 11.5 %; Monocytes # (auto) 0.45 K/uL (0.11-0.59); Monocytes % (auto) 9.8 %; Neutrophils # (auto) 3.54 K/uL (1.4-6.5); Neutrophils % (auto) 76.8 %
[2018-11-22] MEDS: LEVOTHYROXINE SODIUM 62.5 MCG in SYRINGE 0 ML IV SCH (08:40)
[2018-11-22] MEDS: VALPROATE SOD 500 MG in DEXTROSE 5% 50 ML IV SCH (08:41)
[2018-11-22] MEDS: DULOXETINE HCL 60 MG CAP PO SCH (08:41)
[2018-11-22] MEDS: CYANOCOBALAMIN 500 MCG TABLET (VITAMIN B-12) PO SCH (08:41)
[2018-11-22] MEDS: risperiDONE 1 MG TABLET PO SCH ×2 (08:42→20:58)
[2018-11-22] MEDS: CARVEDILOL 12.5 MG TAB PO SCH ×2 (08:42→17:12)
[2018-11-22] MEDS: CALCIUM 600MG + VIT D 400 IU TAB PO SCH (08:42)
[2018-11-22] MEDS: predniSONE 5 MG TAB PO SCH (08:43)
[2018-11-22] MEDS: IMIPRAMINE HCL 25 MG TAB PO SCH ×3 (08:43→20:59)
--- NOTE | 2018-11-22 13:19 | Neurology Consultation ---
Date of Consultation November 22, 2018 Assessment & Plan (1) Acute metabolic encephalopathy: 1. likely a combination of factors causing encephalopathy- possible pneumonia, pancreatitis, acute on chronic renal failure 2. MRI would help with the r/o but would be difficulty until more alert and jimmy uld wait to see if the pneumonia and pancreatitis clearing will help with the MS change 3. pancreatitis would hydrate with IV fluids and keep NPO 4. seizure disorder but no recorded seizures x 10 years- post traumatic. 5. PT/OT for discharge needs 6. EEG may be helpful but will hold off for now (2) Pancreatitis: as above (3) Acute renal failure superimposed on stage 3 chronic kidney disease: as above Supervising Physician Co-Signing Physician Notes I have seen and discussed above patient with Dr Daniel Horvath, neurology I seen and interviewed this man in performing examination and also have reviewed his laboratory studies, the available imaging studies which are from a neurologic point review rather limited, and have discussed his case with Serena Duran PA-C. I do not have a good feel for this man's baseline intellectual function but he is clearly confused rambling as it dysarthric speech pattern, disconjugate eye movements, and a language pattern that could if pushed fit into a form of a normal gait aphasia but my suspicions are that a lot of this is his baseline with a superimposed toxic/metabolic encephalopathy caused by pancreatitis, perhaps an element of increased renal dysfunction, and some hyponatremia and potentially a pneumonitis but there is no evidence for the suspected urinary tract infection as apparently his sister thought was going to be the cause of this. Basis for her thinking is the fact that he has had similar confusional episodes in the setting of urinary tract infections but I suspect any 1 of a number of toxic or metabolic issues could produce a similar picture and suspect that is indeed the case For now the examination is pretty nonfocal there is certainly no hemiparesis, pathologic reflexes, abnormal involuntary movements etc. I agree with Serena Duran that an MRI would be of interest to be sure there is nothing like an embolic shower particular in light of this man's long list of vascular risk factors. I do not think this is a form of nonconvulsive status epilepticus and agree that an EEG would be helpful but find it unlikely that he will be able to cooperate with any form of tracing until he gets a little less distractible and impulsive and thus are willing to have electrodes applied to his scalp for a prolonged period of time Our recommendations are to continue to observe him, obtain an MRI if he gets at some point more cooperative and to attempt an EEG perhaps after the weekend assuming that is toxic and metabolic issues will be medically managed and improved with this maneuver and time I will check back with him tomorrow but for now would make no changes in his Depakote dosing (level is therapeutic) Daniel Horvath MD History of Present Illness Reason for Consultation: change in MS metabolic encephalopathy Requesting Physician: Kristyn Leyva MD Attending Physician: Kristyn Leyva MD History of Present Illness Tigre is a 53 yr old male with PMH of HTN, HLD, CKD-3, Vasculitis on chronic prednisone therapy, bipolar depression, post traumatic seizure disorder, chronic thrombocytopenia, RBBB who presents to [facility] ED secondary to altered mental status and abdominal pain. He was last known well yesterday morning his sister saw him in the morning and felt him to have increased confusion, "this is how he gets when he has a UTI," difficulty with ADLS, weakness and he was complaining of abdominal pain. She is aware he had a BM prior to arrival but is unsure if any diarrhea. He uses a hover round but is able to ambulate with walker to assist with ADLs. He is functional but disabled at baseline. He has a hx of narcotic overdose and currently does not take any narcotics. Has a medication lock box that dispenses his medications and sister assists with this. Sister denies any known seizures, last 10 years ago had grand mal secondary to trauma, none since. He is compliant with medications including depakote and risperdal for bipolar according to his sister. He is sleep when entering the room but lethargic. He wakes easily but is difficult to understand. denies CP, SOB abdominal pain, one sided weakness, numbness tingling, swallowing issues. Allergies Allergy/AdvReac Type Severity Reaction Status Date / Time aspirin Allergy Unknown Nothing Verified 04/18/18 14:45 with Aspirin. bacitracin Allergy Unknown Rash Verified 04/18/18 14:45 Cephalosporins Allergy Unknown Unknown Verified 04/18/18 14:45 doxycycline Allergy Unknown . Verified 04/18/18 14:45 furosemide Allergy Unknown Oral Verified 04/18/18 14:45 solution - rash levofloxacin Allergy Unknown Rash Verified 04/18/18 14:45 neomycin Allergy Unknown Rash Verified 04/18/18 14:45 polymyxin B Allergy Unknown Rash Verified 04/18/18 14:45 Sulfa (Sulfonamide Allergy Unknown Bactrim - Verified 04/18/18 14:45 Antibiotics) rash. moxifloxacin Allergy Unknown Unverified 04/18/18 14:45 sulfamethoxazole Allergy Unknown Unverified 04/18/18 14:58 [From Bactrim] trimethoprim [From Bactrim] Allergy Unknown Unverified 04/18/18 14:58 Home Medications Home Medications Medication Instructions Recorded Confirmed Type ascorbic acid (vitamin C) [Vitamin 1,000 mg PO DAILY 02/10/18 11/20/18 History C] divalproex 1,000 mg PO BID 02/10/18 11/20/18 History imipramine HCl 25 mg PO TID 02/10/18 11/20/18 History levothyroxine 125 mcg PO QAM 02/10/18 11/20/18 History carvedilol 12.5 mg PO BIDM 04/18/18 11/20/18 History cyanocobalamin (vitamin B-12) 1,000 mcg PO DAILY 04/18/18 11/20/18 History [Vitamin B-12] omega 0-ihw-bli-fish oil [Fish Oil] 1,000 mg PO DAILY 04/18/18 11/20/18 History ranitidine HCl 150 mg PO HS 04/18/18 11/20/18 History risperidone 1 mg PO BID 04/18/18 11/20/18 History vitamin E 400 unit PO DAILY 04/18/18 11/20/18 History prednisone 5 mg PO DAILY 04/23/18 11/20/18 History calcium carbonate-vitamin D3 1 tab PO DAILY 11/20/18 11/20/18 History [Calcium 600 + D(3)] duloxetine [Cymbalta] 60 mg PO DAILY 11/20/18 11/20/18 History Patient History Medical History Hypothyroidism (Chronic) Hyperprolactinemia (Chronic) Vasculitis (Chronic) CKD (chronic kidney disease), stage III (Chronic) ALKA (iron deficiency anemia) (Chronic) Post-traumatic seizures (Chronic) Hypertension (Chronic) Chronic pain (Chronic) Bipolar disorder (Chronic) RBBB (Chronic) Hyperlipidemia (Chronic) JHOANA (obstructive sleep apnea) (Chronic) does not use cpap or bipap Reflux esophagitis (Chronic) Goiter (Chronic) 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) Hypertension (Inactive) Surgical History History of fasciotomy (Chronic) History of tracheostomy (Chronic) History of total right hip arthroplasty (Chronic) Family History Other Family history unobtainable due to patient's condition Social History Preferred Language: [place] Communication Ability: Unable Churn Driller Required: No Beliefs That Will Affect Care: None Current Living Situation: Family Current Living Situation Comment: Staying in shed at sister's house Other Information That Helps Us Care for You: No Feels Safe at Home: Declines to Answer Smoking Status: Never smoker Tobacco Type: cigarettes and smokeless tobacco Do You Dip or Chew Tobacco: No Second Hand Exposure: No Tobacco Cessation Education Requested by Patient: No Hx Alcohol Use: No Hx Substance Use: No Physical Exam Physical Exam: Gen: alert with stimulation lungs course breath sounds CV RRR abdomen soft non tender knows he is in the hospital but mumbles with other questions squeezes with hands and pulls bilaterally bicep triceps 5/5 unable to lift legs against gravity pedal edema bilaterall ++2 pitting Results & Data Vital Signs (Past 12 Hours) Vital Signs Temp Pulse Resp BP Pulse Ox 11/22/18 11:44 37.0 C 50 L 18 124/74 97 11/22/18 07:00 36.8 C 59 L 18 144/67 H 90 11/22/18 04:37 37.1 C 57 L 17 144/72 H 95 Laboratory Results Abnormal lab results 11/22/18 11/22/18 Range/Units 05:58 05:58 WBC 4.61 L (4.8-10.8) K/uL RBC 3.42 L (4.7-6.1) M/uL Hgb 10.4 L (14.0-18.0) g/dL Hct 32.7 L (42-52) % MCHC 31.8 L (32-36) g/dL RDW Std Deviation 64.7 H (36.4-46.3) fL RDW Coeff of Debra 18.3 H (11.5-14.5) % Plt Count 43 L (130-400) K/uL Lymph # (Auto) 0.53 L (1.2-3.4) K/uL Absolute Nucleated RBC 0.03 H (0-0) K/uL BUN 39 H (7-18) mg/dl Creatinine 1.86 H D (0.6-1.4) mg/dl BUN/Creatinine Ratio 21.2 H (10-20) Diagnostic Findings CT abd/pelvis- Findings compatible with acute pancreatitis. No acute peripancreatic fluid collection identified. Trace pleural effusions with trace abdominopelvic ascites. Mild wall thickening of the duodenum, likely reactive. No bowel obstruction, pneumatosis or pneumoperitoneum. Colonic diverticulosis. No renal or ureteral calculi or obstructive uropathy. CXR- Left basilar patchy densities and a trace left pleural effusion. This could represent a pneumonia. Chronic subluxation of the bilateral shoulders is again noted. CT head- No acute intracranial findings. abd US- Gallbladder sludge. No cholelithiasis or biliary ductal dilatation. Trace perihepatic ascites. This is likely reactive in the setting of known pancreatitis.
--- NOTE | 2018-11-22 15:39 | Hospitalist Progress Note ---
Date of Service November 22, 2018 Assessment & Plan (1) Acute metabolic encephalopathy: This is a 53 yr old M who has a significant pmh of HTN, HLD, CKD-3, Vasculitis on chronic prednisone therapy, bipolar depression, post traumatic seizure disorder, chronic thrombocytopenia, RBBB who presents to [facility] ED secondary to altered mental status and abdominal pain x 1 day. Likely secondary to infection, UTI versus pneumonia and complicated by acute pancreatitis and acute renal failure Much improved today but remains pleasantly confused Responding to vocal commands and trying to communicate No apparent distress Appreciate neurology input and recommendation We will get MRI and EEG when appropriate Speech evaluation done-advised thickened diet (2) Pancreatitis: Presented with abdominal pain and nausea CT scan did show:CT abdomen pelvis revealed acute pancreatitis, trace pleural effusion and trace abdominal pelvic ascites, gallbladder sludge, diverticulosis Kept on n.p.o. and administered IV fluid No narcotics were administered Clinically better with normalization of lipase Will start clears and advance as tolerated Getting fluid overload and will stop IV fluid (3) Pneumonia: Chest x-ray concerning for left basilar opacity and pleural effusion possibly consistent with pneumonia Urinalysis does have positive leukoesterase and nitrites, but negative bacteria -Per patient's sister he has history of UTI which presents as confusion Patient does not meet Sepsis Criteria Continue IV antibiotics with Zosyn, obtain mRSA nasal swab if negative will not cover for MRSA given concern for SHIELA Abd U/S Limited to RUQ to r/o gall bladder pathology as etiology of pancreatitis - currently unknown no ETOH or NSAID obtain NH3, blood cultures Urine culture has been negative Blood cultures have been negative We will continue current antibiotic clinic total of 5 days (4) Acute renal failure superimposed on stage 3 chronic kidney disease: Baseline creatinine 2.0 BUN/creatinine 44 and 2.60 today IVF ordered Follow BMP, repeat today 8 p.m. Daily and has been improving Renal function has been improving (5) Electrolyte abnormality: Na 132, K 5.3 likely in setting of SHIELA; however keep adrenal insuff on differential am cortisol level-within normal limit Electrolytes have been normal as of this morning (6) Hypertension: Blood pressure stable On carvedilol will hold on p.o. (7) Hypothyroidism: Continue levothyroxine, convert IV (8) Bipolar disorder: Continue Depakote, will convert to IV while n.p.o. Hold Risperdal for now resume when able to tolerate p.o. or consider conversion to IM (9) Thrombocytopenia: Platelet count stable at 61 Chronically runs between 60 and 100 Had peripheral smear done in admission 04/2018 which was unrevealing Platelet remains low at 52 and 43 on 11/22 (10) DVT prophylaxis: SCDS/TEDS Avoid chemical prophylaxis in setting of platelets 61, chronic thrombocytopenia Discussed with the sister in detail Updated about present condition Will try to start solid food as soon as possible and the medications Will advise PT and OT evaluation Subjective 11/21 Patient was seen and examined in telemetry unit This is a 53 yr old M who has a significant pmh of HTN, HLD, CKD-3, Vasculitis on chronic prednisone therapy, bipolar depression, post traumatic seizure disorder, chronic thrombocytopenia, RBBB who presents to [facility] ED secondary to altered mental status and abdominal pain x 1 day Noted to have acute pancreatitis on CT of the abdomen and pelvis with possible UTI Remains very drowsy and lethargic Denies any acute pain and/or heart symptoms 11/22 Patient was seen and examined in telemetry unit He remains drowsy but has been conversing reasonably Pleasantly confused Still has some abdominal discomfort Review of Systems Review of Systems: All systems reviewed and are unremarkable except as noted below Constitutional: + fatigue, + malaise, + weakness and + problem reported (Remains drowsy but alert and awake.) Gastrointestinal: + abdominal pain (Denies any pain during examination) Neurologic: + problem reported (Remains lethargic with some improvement. Communicating but confused) Physical Exam Physical Exam: Minimal improvement from generalized drowsiness and confusion Constitutional: well developed, well nourished and + ill appearing; no acute distress Eyes: PERRL, conjunctivae normal, anicteric sclerae ENMT: external ear and nose normal, oropharynx normal Neck: trachea midline, no thyromegaly Respiratory: normal respiratory effort; no respiratory distress Auscultation: lungs clear to auscultation bilaterally Gastrointestinal (Abdomen): Inspection/Auscultation: abdomen normal to inspection and normal bowel sounds Percussion/Palpation: + abdomen tender (Mildly tender upper quadrant) and abdomen soft Musculoskeletal: No acute arthritis in any joints Neurologic: moves all extremities; no focal motor deficits Speech / Cognition: + abnormal speech (Garbled speech at times) Pleasantly confused Lymphatic: no cervical or axillary lymphadenopathy Results & Data Vital Signs (Past 12 Hours) Vital Signs Temp Pulse Resp BP Pulse Ox 11/22/18 15:21 37.1 C 50 L 21 105/63 94 11/22/18 11:44 37.0 C 50 L 18 124/74 97 11/22/18 07:00 36.8 C 59 L 18 144/67 H 90 11/22/18 04:37 37.1 C 57 L 17 144/72 H 95 Laboratory Results Short CBC 11/22/18 Range/Units 05:58 WBC 4.61 L (4.8-10.8) K/uL Hgb 10.4 L (14.0-18.0) g/dL Hct 32.7 L (42-52) % Plt Count 43 L (130-400) K/uL BMP 11/22/18 05:58 Sodium 141 Potassium 4.3 Chloride 107 Carbon Dioxide 29 BUN 39 H Creatinine 1.86 H D Glucose 80 Calcium 8.9 Medications Administered Current Inpatient Medications Acetaminophen (Tylenol) 650 mg PO Q4H PRN PRN Reason: Pain or Fever Stop: 12/20/18 15:54 Last Admin: 11/21/18 16:46 Dose: 650 mg Documented by: Carvedilol (Coreg) 12.5 mg PO BIDM [facility] Stop: 12/21/18 16:59 Last Admin: 11/22/18 08:42 Dose: 12.5 mg Documented by: Cyanocobalamin (Vitamin B-12) 1,000 mcg PO DAILY [facility] Stop: 12/21/18 11:14 Last Admin: 11/22/18 08:41 Dose: 1,000 mcg Documented by: Divalproex Sodium (Depakote Delay Release) 1,000 mg PO BID [facility] Stop: 12/21/18 20:59 Duloxetine HCl (Cymbalta) 60 mg PO DAILY [facility] Stop: 12/21/18 11:14 Last Admin: 11/22/18 08:41 Dose: 60 mg Documented by: Levothyroxine Sodium 62.5 mcg/ (Syringe) 3.125 mls @ 2 mls/min IV DAILY@0900 [facility] Stop: 12/21/18 08:59 Last Admin: 11/22/18 08:40 Dose: 2 mls/min Documented by: Piperacillin Sod/Tazobactam (Sod 4.5 gm/ Dextrose) 120 mls @ 30 mls/hr IV Q8H [facility]; Protocol Stop: 11/30/18 18:59 Last Admin: 11/22/18 11:26 Dose: 30 mls/hr Documented by: Lactated Ringer's (Lr) 1,000 mls @ 200 mls/hr IV .Q5H [facility] Stop: 12/21/18 00:00 Last Admin: 11/22/18 10:37 Dose: 200 mls/hr Documented by: Valproic Acid 500 mg/ Dextrose 55 mls @ 55 mls/hr IV BID [facility] Stop: 12/21/18 20:59 Last Infusion: 11/22/18 09:48 Dose: Infused Documented by: Imipramine HCl (Tofranil) 25 mg PO TID [facility] Stop: 12/21/18 13:59 Last Admin: 11/22/18 14:02 Dose: 25 mg Documented by: Levothyroxine Sodium (Synthroid) 125 mcg PO DAILYBB [facility] Stop: 12/22/18 06:29 Miscellaneous Information (Consult) 1 ea N/A UD PRN PRN Reason: Consult Stop: 12/20/18 15:54 Multivitamins/Minerals (Caltrate Plus) 1 tab PO DAILY [facility] Stop: 12/21/18 11:14 Last Admin: 11/22/18 08:42 Dose: 1 tab Documented by: Ondansetron HCl (Zofran) 4 mg IV Q6H PRN PRN Reason: Nausea Stop: 12/20/18 15:54 Last Admin: 11/20/18 20:53 Dose: 4 mg Documented by: Polyethylene Glycol (Miralax Powder Packet) 17 gm PO DAILY PRN PRN Reason: Constipation Stop: 12/20/18 15:54 Prednisone (Prednisone) 5 mg PO DAILY [facility] Stop: 12/21/18 11:14 Last Admin: 11/22/18 08:43 Dose: 5 mg Documented by: Ranitidine HCl (Zantac) 150 mg PO HS [facility] Stop: 12/21/18 20:59 Last Admin: 11/21/18 21:16 Dose: 150 mg Documented by: Risperidone (Risperdal) 1 mg PO BID [facility] Stop: 12/21/18 11:14 Last Admin: 11/22/18 08:42 Dose: 1 mg Documented by:
[2018-11-22] MEDS: DIVALPROEX DELAY RELEASE 500 MG TAB PO SCH (21:12)
[2018-11-23] MEDS: PIPERACILLIN/TAZOBACTAM 4.5 GM in DEXTROSE 5% 100 ML IV SCH ×3 (03:59→20:50)
[2018-11-23] MEDS: LEVOTHYROXINE SODIUM 125 MCG TABLET PO SCH (05:45)
[2018-11-23] MEDS: CARVEDILOL 12.5 MG TAB PO SCH ×2 (07:29→17:47)
[2018-11-23] MEDS: IMIPRAMINE HCL 25 MG TAB PO SCH ×3 (07:43→20:52)
[2018-11-23] MEDS: DIVALPROEX DELAY RELEASE 500 MG TAB PO SCH ×2 (07:44→20:51)
[2018-11-23] MEDS: CYANOCOBALAMIN 500 MCG TABLET (VITAMIN B-12) PO SCH (07:44)
[2018-11-23] MEDS: CALCIUM 600MG + VIT D 400 IU TAB PO SCH (07:44)
[2018-11-23] MEDS: predniSONE 5 MG TAB PO SCH (07:44)
[2018-11-23] MEDS: risperiDONE 1 MG TABLET PO SCH ×2 (07:45→20:52)
[2018-11-23] MEDS: DULOXETINE HCL 60 MG CAP PO SCH (07:45)
[2018-11-23 07:52] LABS: Hematocrit (blood only) 32.6 % (42-52); Hemoglobin 10.4 g/dL (14.0-18.0); Mean Corpuscular Hgb Conc 31.9 g/dL (32-36); Mean Corpuscular Volume 95.3 fL (80-100); Nucleated RBC # (auto) 0.04 K/uL (0-0); Nucleated RBC % (auto) 0.7 %; RDW Coefficient of Variation 18.1 % (11.5-14.5); RDW Standard Deviation 63.3 fL (36.4-46.3); Red Blood Count 3.42 M/uL (4.7-6.1); White Blood Count 5.25 K/uL (4.8-10.8)
[2018-11-23 08:11] LABS: Basophils # (auto) 0.01 K/uL (0-0.2); Basophils % (auto) 0.2 %; Eosinophils # (auto) 0.09 K/uL (0-0.5); Eosinophils % (auto) 1.7 %; Hypochromasia Present; Immature Granulocytes # (auto) 0.04 K/uL (0.00-0.02); Immature Granulocytes % (auto) 0.8 %; Lymphocytes # (auto) 0.59 K/uL (1.2-3.4); Lymphocytes % (auto) 11.2 %; Mean Platelet Volume 10.1 fL (7.4-10.4); Monocytes % (auto) 11.4 %; Neutrophils # (auto) 3.92 K/uL (1.4-6.5); Neutrophils % (auto) 74.7 %; Platelet Count 42 K/uL (130-400); Platelet Estimate Decreased (Normal); Toxic Granulation 1+
[2018-11-23 08:24] LABS: BUN Creatinine Ratio 22.2 (10-20); Calcium 9.4 mg/dl (8.5-10.1); Creatinine Clr Calc Pharmacy 61.7 ml/min; Est GFR (Non-African American) 45.7; Magnesium 1.9 mg/dl (1.8-2.4); Potassium 4.5 mmol/L (3.5-5.1)
--- NOTE | 2018-11-23 12:30 | Communication Note ---
Date of Service: November 23, 2018 I saw Mr. Becerril today in the accompaniment of his sister and reviewed the history that according to her consisted of day or 2 of abdominal pain but other leos no basic change in the patient's mental status until shortly after arrival here when he became nonambulatory and confused and very disoriented. This is persisted with some waxing and waning in his level of consciousness over the past several days and may be slightly improved but he is nowhere near what she considers his baseline and she is becoming concerned that something is being missed Today I could awaken him but had more difficulty than yesterday and he still had what appeared to be a slight right upper motor neuron facial asymmetry and a language disturbance that could have been consistent with a global a aphasia with word finding deficits and some paraphasias and neologisms but his baseline speech is pretty dysarthric and his sister was the only one who could really interpret what he was saying There is no clear history of a seizure disorder other than the single seizure that recovered from acute illness 12 years ago it sounds like 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 The Depakote is primarily on board because of his bipolar disease as is the Risperdal and no doses of any medications have been changed At this point I think we really need to pursue more neuro imaging but in view of this man's body habitus I doubt that we are going to be able to get him into a standard MRI machine and I suggested that if we cannot then we should simply repeat the CT scan that was done on admission 3 days ago and see if there is no evidence for at least a definable area of cortical infarction in the left hemisphere I discussed this with Dr. Leyva and I think he is going to try to arrange for 1 of the studies to depending on whether or not he can fit into MRI machine I will order an EEG but suspect it will not be done until Sunday From metabolic point review there is liver functions etc. seem to be improving and the lipase is now down but again some of this could still be residua of a "pancreatic encephalopathy" syndrome that is reported in association with acute pancreatitis I feel however that this should be a diagnosis of exclusion and that we need to be sure there is not been a vascular event involving the left hemisphere and will check for the remote possibility of nonconvulsive seizure activity with an EEG We will check back with him tomorrow Daniel Horvath MD
--- NOTE | 2018-11-23 12:49 | Hospitalist Progress Note ---
Date of Service November 23, 2018 Assessment & Plan (1) Acute metabolic encephalopathy: This is a 53 yr old M who has a significant pmh of HTN, HLD, CKD-3, Vasculitis on chronic prednisone therapy, bipolar depression, post traumatic seizure disorder, chronic thrombocytopenia, RBBB who presents to [facility] ED secondary to altered mental status and abdominal pain x 1 day. Likely secondary to infection, UTI versus pneumonia and complicated by acute pancreatitis and acute renal failure Much improved today but remains pleasantly confused Responding to vocal commands and trying to communicate No apparent distress Appreciate neurology input and recommendation We will get MRI and EEG when appropriate Speech evaluation done-advised thickened diet Clinically little bit better today We will get MRI of the head without contrast and EEG (2) Pancreatitis: Presented with abdominal pain and nausea CT scan did show:CT abdomen pelvis revealed acute pancreatitis, trace pleural effusion and trace abdominal pelvic ascites, gallbladder sludge, diverticulosis Kept on n.p.o. and administered IV fluid No narcotics were administered Clinically better with normalization of lipase Will start clears and advance as tolerated Getting fluid overload and will stop IV fluid Pancreatitis seems to be resolved (3) Pneumonia: Chest x-ray concerning for left basilar opacity and pleural effusion possibly consistent with pneumonia Urinalysis does have positive leukoesterase and nitrites, but negative bacteria -Per patient's sister he has history of UTI which presents as confusion Patient does not meet Sepsis Criteria Continue IV antibiotics with Zosyn, obtain mRSA nasal swab if negative will not cover for MRSA given concern for SHIELA Abd U/S Limited to RUQ to r/o gall bladder pathology as etiology of pancreatitis - currently unknown no ETOH or NSAID obtain NH3, blood cultures Urine culture has been negative Blood cultures have been negative We will continue current antibiotic clinic total of 5 days Denies any respiratory symptoms (4) Acute renal failure superimposed on stage 3 chronic kidney disease: Baseline creatinine 2.0 BUN/creatinine 44 and 2.60 today IVF ordered Follow BMP, repeat today 8 p.m. Daily and has been improving Renal function has been improving and creatinine is 1.6 today (5) Electrolyte abnormality: Na 132, K 5.3 likely in setting of SHIELA; however keep adrenal insuff on differential am cortisol level-within normal limit Electrolytes have been normal as of this morning (6) Hypertension: Blood pressure stable On carvedilol will hold on p.o. (7) Hypothyroidism: Continue levothyroxine, convert IV (8) Bipolar disorder: Continue Depakote, will convert to IV while n.p.o. Hold Risperdal for now resume when able to tolerate p.o. or consider conversion to IM (9) Thrombocytopenia: Platelet count stable at 61 Chronically runs between 60 and 100 Had peripheral smear done in admission 04/2018 which was unrevealing Platelet remains low at 52 and 43 on 11/22 Remains in the lower side at 42 (10) DVT prophylaxis: SCDS/TEDS Avoid chemical prophylaxis in setting of platelets 61, chronic thrombocytopenia Discussed with the sister in detail Updated about present condition Will try to start solid food as soon as possible and the medications Will advise PT and OT evaluation His sister was updated Subjective 11/21 Patient was seen and examined in telemetry unit This is a 53 yr old M who has a significant pmh of HTN, HLD, CKD-3, Vasculitis on chronic prednisone therapy, bipolar depression, post traumatic seizure disorder, chronic thrombocytopenia, RBBB who presents to [facility] ED secondary to altered mental status and abdominal pain x 1 day Noted to have acute pancreatitis on CT of the abdomen and pelvis with possible UTI Remains very drowsy and lethargic Denies any acute pain and/or heart symptoms 11/22 Patient was seen and examined in telemetry unit He remains drowsy but has been conversing reasonably Pleasantly confused Still has some abdominal discomfort 11/23 Patient was seen and examined in the telemetry unit He seems to be little better today but continues to have mild confusion Does not have any significant neuro deficit Denies any significant pain Review of Systems Review of Systems: All systems reviewed and are unremarkable except as noted below Constitutional: + weakness and + problem reported (Remains confused) Respiratory: no cough and no dyspnea Cardiovascular: no chest pain Gastrointestinal: + abdominal pain (Minimal abdominal pain left side) Neurologic: Alert, awake but pleasantly confused Physical Exam Physical Exam: Lying in bed comfortably Constitutional: well developed, well nourished and + ill appearing; no acute distress Eyes: PERRL, conjunctivae normal, anicteric sclerae ENMT: external ear and nose normal, oropharynx normal Neck: trachea midline, no thyromegaly No neck stiffness Respiratory: normal respiratory effort; no respiratory distress Auscultation: lungs clear to auscultation bilaterally Cardiovascular: Rate/Rhythm: regular rate and regular rhythm Heart Sounds: no murmur Gastrointestinal (Abdomen): Inspection/Auscultation: abdomen normal to inspection and normal bowel sounds Percussion/Palpation: abdomen soft Musculoskeletal: No acute arthritis in any of the joints Neurologic: moves all extremities; no focal motor deficits Speech / Cognition: + abnormal speech (Garbled speech at times) No significant neuro deficit on examination Lymphatic: no cervical or axillary lymphadenopathy Results & Data Vital Signs (Past 12 Hours) Vital Signs Temp Pulse Pulse Resp BP Pulse Ox 11/23/18 10:50 36.8 C 52 L 19 147/75 H 94 11/23/18 07:28 58 L 11/23/18 06:58 36.6 C 61 18 143/76 H 94 11/23/18 04:21 36.4 C L 48 L 18 137/73 96 Laboratory Results Short CBC 11/23/18 Range/Units 07:40 WBC 5.25 (4.8-10.8) K/uL Hgb 10.4 L (14.0-18.0) g/dL Hct 32.6 L (42-52) % Plt Count 42 L (130-400) K/uL BMP 11/23/18 07:40 Sodium 139 Potassium 4.5 Chloride 106 Carbon Dioxide 28 BUN 37 H Creatinine 1.66 H Glucose 93 Calcium 9.4 Medications Administered Current Inpatient Medications Acetaminophen (Tylenol) 650 mg PO Q4H PRN PRN Reason: Pain or Fever Stop: 12/20/18 15:54 Last Admin: 11/21/18 16:46 Dose: 650 mg Documented by: Carvedilol (Coreg) 12.5 mg PO BIDM [facility] Stop: 12/21/18 16:59 Last Admin: 11/23/18 07:29 Dose: Not Given Documented by: Cyanocobalamin (Vitamin B-12) 1,000 mcg PO DAILY [facility] Stop: 12/21/18 11:14 Last Admin: 11/23/18 07:44 Dose: 1,000 mcg Documented by: Divalproex Sodium (Depakote Delay Release) 1,000 mg PO BID [facility] Stop: 12/21/18 20:59 Last Admin: 11/23/18 07:44 Dose: 1,000 mg Documented by: Duloxetine HCl (Cymbalta) 60 mg PO DAILY [facility] Stop: 12/21/18 11:14 Last Admin: 11/23/18 07:45 Dose: 60 mg Documented by: Piperacillin Sod/Tazobactam (Sod 4.5 gm/ Dextrose) 120 mls @ 30 mls/hr IV Q8H [facility]; Protocol Stop: 11/30/18 18:59 Last Admin: 11/23/18 11:12 Dose: 30 mls/hr Documented by: Imipramine HCl (Tofranil) 25 mg PO TID [facility] Stop: 12/21/18 13:59 Last Admin: 11/23/18 07:43 Dose: 25 mg Documented by: Levothyroxine Sodium (Synthroid) 125 mcg PO DAILYBB [facility] Stop: 12/22/18 06:29 Last Admin: 11/23/18 05:45 Dose: 125 mcg Documented by: Miscellaneous Information (Consult) 1 ea N/A UD PRN PRN Reason: Consult Stop: 12/20/18 15:54 Multivitamins/Minerals (Caltrate Plus) 1 tab PO DAILY [facility] Stop: 12/21/18 11:14 Last Admin: 11/23/18 07:44 Dose: 1 tab Documented by: Ondansetron HCl (Zofran) 4 mg IV Q6H PRN PRN Reason: Nausea Stop: 12/20/18 15:54 Last Admin: 11/20/18 20:53 Dose: 4 mg Documented by: Polyethylene Glycol (Miralax Powder Packet) 17 gm PO DAILY PRN PRN Reason: Constipation Stop: 12/20/18 15:54 Prednisone (Prednisone) 5 mg PO DAILY [facility] Stop: 12/21/18 11:14 Last Admin: 11/23/18 07:44 Dose: 5 mg Documented by: Ranitidine HCl (Zantac) 150 mg PO HS [facility] Stop: 12/21/18 20:59 Last Admin: 11/22/18 21:00 Dose: 150 mg Documented by: Risperidone (Risperdal) 1 mg PO BID [facility] Stop: 12/21/18 11:14 Last Admin: 11/23/18 07:45 Dose: 1 mg Documented by:
--- NOTE | 2018-11-23 16:59 | Magnetic Resonance Report ---
MR brain wo con CLINICAL HISTORY: 53 years-old Male presenting with altered mental status, concern for stroke. TECHNIQUE: Multisequence, multiplanar MR imaging of the brain was performed without the use of intrav enous contrast. IV contrast: None. COMPARISON: Noncontrast CT head from 02/17/2019. FINDINGS: Localizer images: Unremarkable. Limited evaluation due to early termination of the exam as a consequence of patient motion and scanne r malfunction. This moderately limits diagnostic sensitivity of the exam. Axial diffusion and axial T 2 weighted imaging were acquired. Proportional ventricular and sulcal prominence, likely age-related parenchymal volume loss. No restri cted diffusion or gross evidence of hemorrhage. Brain parenchyma grossly normal. No mass effect or mi dline shift. No extra-axial fluid collection. T2 skull base flow voids preserved. Bone marrow signal intensity within the calvarium within normal limits. Bilateral douglas lenses are a bsent. IMPRESSION: Limited evaluation due to early termination of the exam as a consequence of patient motion and scanne r malfunction. This moderately limits diagnostic sensitivity of the exam. 1. Allowing for this, no evidence of ischemia or gross abnormality. Age-related change. Electronically signed by: Leonel Sanchez M.D. 11/23/2018 4:58 PM
[2018-11-24] MEDS: PIPERACILLIN/TAZOBACTAM 4.5 GM in DEXTROSE 5% 100 ML IV SCH ×3 (04:32→20:58)
[2018-11-24] MEDS: LEVOTHYROXINE SODIUM 125 MCG TABLET PO SCH (05:23)
--- NOTE | 2018-11-24 06:01 | Hospitalist Progress Note ---
Date of Service November 24, 2018 Subjective Made aware by RN of uncontrolled blood pressure. SBP 140-190s the last 24 hours. CR 50s. Patient asymptomatic as per RN. AP Hypertensive urgency Add Norvasc to patient's Coreg. Will relay to AM provider. Results & Data Vital Signs (Past 12 Hours) Vital Signs Temp Pulse Pulse Resp BP BP Pulse Ox 11/24/18 05:49 187/84 H 11/24/18 03:32 37.2 C 59 L 18 182/8 H 193/70 H 92 11/24/18 00:51 57 L 11/24/18 00:42 156/77 H 11/23/18 23:30 36.5 C 53 L 18 174/84 H 92 11/23/18 19:47 36.4 C L 50 L 19 159/89 H 90
[2018-11-24 06:07] LABS: Est GFR (African American) 55.4; Est GFR (Non-African American) 47.8
[2018-11-24] MEDS: AMLODIPINE BESYLATE 5 MG TAB PO SCH (06:36)
[2018-11-24] MEDS: CARVEDILOL 12.5 MG TAB PO SCH ×2 (07:38→16:19)
[2018-11-24] MEDS: DULOXETINE HCL 60 MG CAP PO SCH (07:38)
[2018-11-24] MEDS: DIVALPROEX DELAY RELEASE 500 MG TAB PO SCH ×2 (07:39→20:47)
[2018-11-24] MEDS: predniSONE 5 MG TAB PO SCH (07:39)
[2018-11-24] MEDS: CYANOCOBALAMIN 500 MCG TABLET (VITAMIN B-12) PO SCH (07:39)
[2018-11-24] MEDS: risperiDONE 1 MG TABLET PO SCH ×2 (07:39→20:48)
[2018-11-24] MEDS: CALCIUM 600MG + VIT D 400 IU TAB PO SCH (07:39)
[2018-11-24] MEDS: IMIPRAMINE HCL 25 MG TAB PO SCH ×3 (07:39→20:47)
--- NOTE | 2018-11-24 11:18 | Communication Note ---
Date of Service: November 24, 2018 I seen Mr. Varghese today and noted him to be virtually unchanged from his status yesterday. He is lethargic but arousable will follow few simple commands but not consistently and has speech that is incredibly hard to discern and understand so making the diagnosis of aphasia is virtually impossible. He seems to move all 4 extremities well and the right upper motor neuron type of facial asymmetry I described yesterday seems less evident today overall however I would have to state that his condition to my assessment remains unchanged and significantly compromised in a nonfocal fashion He did have an MRI done yesterday which was hampered by movement artifact and had to be aborted but diffusion-weighted imaging and T2-weighted imaging showed no evidence for an acute infarction or indeed any other significant chronic abnormalities or subacute abnormalities that might explain this stage on a structural basis I have ordered an ammonia level to be done today. I thought that one had been ordered and performed earlier but cannot located on the chart An EEG is currently being performed. The diagnoses here remains that of a nonspecific encephalopathy of uncertain causation but related historically to what we assume is an acute pancreatitis and perhaps an element of a lower lobe pneumonia superimposed upon a baseline status that includes bipolar disease, single remote seizure in the setting of an acute illness years ago, quiesced sent vasculitis treated with low-dose steroids and a prior history of a similar encephalopathy during urinary tract infections. We will see what the ammonia and EEG show and Serena Duran and I will be back to see him tomorrow If the symptoms persist without clear-cut explanation and do not improve we may end up having to do an empiric lumbar puncture under fluoroscopy which may prove to be technically difficult in view of this man's over nourishment and variable level of cooperation Daniel Horvath MD
--- NOTE | 2018-11-24 11:36 | Procedure Note ---
EEG Procedure Note Date of Service November 24, 2018 Start / End Times Start Time: NA End Time: NA Referring Physician Daniel Horvath MD History question seizures Home Medication List Home Medications Medication Instructions Recorded Confirmed Type ascorbic acid (vitamin C) [Vitamin 1,000 mg PO DAILY 02/10/18 11/20/18 History C] divalproex 1,000 mg PO BID 02/10/18 11/20/18 History imipramine HCl 25 mg PO TID 02/10/18 11/20/18 History levothyroxine 125 mcg PO QAM 02/10/18 11/20/18 History carvedilol 12.5 mg PO BIDM 04/18/18 11/20/18 History cyanocobalamin (vitamin B-12) 1,000 mcg PO DAILY 04/18/18 11/20/18 History [Vitamin B-12] omega 6-wrc-ruq-fish oil [Fish Oil] 1,000 mg PO DAILY 04/18/18 11/20/18 History ranitidine HCl 150 mg PO HS 04/18/18 11/20/18 History risperidone 1 mg PO BID 04/18/18 11/20/18 History vitamin E 400 unit PO DAILY 04/18/18 11/20/18 History prednisone 5 mg PO DAILY 04/23/18 11/20/18 History calcium carbonate-vitamin D3 1 tab PO DAILY 11/20/18 11/20/18 History [Calcium 600 + D(3)] duloxetine [Cymbalta] 60 mg PO DAILY 11/20/18 11/20/18 History Inpatient Medication List Acetaminophen (Tylenol) 650 mg PO Q4H PRN PRN Reason: Pain or Fever Stop: 12/20/18 15:54 Last Admin: 11/21/18 16:46 Dose: 650 mg Documented by: [id number] A[facility]od[facility] ([facility]) [facility] [place] [place] Stop: 12/24/18 05:59 Last Admin: 11/24/18 06:36 Dose: 5 mg Documented by: [id number] Carvedilol (Coreg) 12.5 mg PO BIDM [facility] Stop: 12/21/18 16:59 Last Admin: 11/24/18 07:38 Dose: Not Given Documented by: [id number] Admin: 11/23/18 17:47 Dose: Not Given Documented by: [id number] Admin: 11/23/18 07:29 Dose: Not Given Documented by: [id number] Admin: 11/22/18 17:12 Dose: Not Given Documented by: [id number] Admin: 11/22/18 08:42 Dose: 12.5 mg Documented by: [id number] Admin: 11/21/18 16:48 Dose: 12.5 mg Documented by: [id number] Cyanocobalamin (Vitamin B-12) 1,000 mcg PO DAILY [facility] Stop: 12/21/18 11:14 Last Admin: 11/24/18 07:39 Dose: 1,000 mcg Documented by: [id number] Admin: 11/23/18 07:44 Dose: 1,000 mcg Documented by: [id number] Admin: 11/22/18 08:41 Dose: 1,000 mcg Documented by: [id number] Admin: 11/21/18 11:34 Dose: Not Given Documented by: [id number] Divalproex Sodium (Depakote Delay Release) 1,000 mg PO BID NIC Stop: 12/21/18 20:59 Last Admin: 11/24/18 07:39 Dose: 1,000 mg Documented by: [id number] Admin: 11/23/18 20:51 Dose: 1,000 mg Documented by: [id number] Admin: 11/23/18 07:44 Dose: 1,000 mg Documented by: [id number] Admin: 11/22/18 21:12 Dose: Not Given Documented by: [id number] Duloxetine HCl (Cymbalta) 60 mg PO DAILY [facility] Stop: 12/21/18 11:14 Last Admin: 11/24/18 07:38 Dose: 60 mg Documented by: [id number] Admin: 11/23/18 07:45 Dose: 60 mg Documented by: [id number] Admin: 11/22/18 08:41 Dose: 60 mg Documented by: [id number] Admin: 11/21/18 11:34 Dose: Not Given Documented by: [id number] Piperacillin Sod/Tazobactam (Sod 4.5 gm/ Dextrose) 120 mls @ 30 mls/hr IV Q8H [facility]; Protocol Stop: 11/30/18 18:59 Last Infusion: 11/24/18 09:01 Dose: 0 mls/hr Documented by: [id number] Admin: 11/24/18 04:32 Dose: 30 mls/hr Documented by: [id number] Infusion: 11/24/18 00:54 Dose: 0 mls/hr Documented by: [id number] Admin: 11/23/18 20:50 Dose: 30 mls/hr Documented by: [id number] Infusion: 11/23/18 15:14 Dose: 0 mls/hr Documented by: [id number] Admin: 11/23/18 11:12 Dose: 30 mls/hr Documented by: [id number] Infusion: 11/23/18 08:26 Dose: 0 mls/hr Documented by: [id number] Admin: 11/23/18 03:59 Dose: 30 mls/hr Documented by: [id number] Infusion: 11/23/18 01:36 Dose: 0 mls/hr Documented by: [id number] Admin: 11/22/18 20:57 Dose: 30 mls/hr Documented by: [id number] Infusion: 11/22/18 15:43 Dose: 0 mls/hr Documented by: [id number] Admin: 11/22/18 11:26 Dose: 30 mls/hr Documented by: [id number] Infusion: 11/22/18 07:16 Dose: 0 mls/hr Documented by: [id number] Admin: 11/22/18 03:04 Dose: 30 mls/hr Documented by: [id number] Infusion: 11/21/18 22:20 Dose: 0 mls/hr Documented by: [id number] Admin: 11/21/18 18:20 Dose: 30 mls/hr Documented by: [id number] Infusion: 11/21/18 15:09 Dose: 0 mls/hr Documented by: [id number] Admin: 11/21/18 11:04 Dose: 30 mls/hr Documented by: [id number] Infusion: 11/21/18 07:59 Dose: 0 mls/hr Documented by: [id number] Admin: 11/21/18 03:50 Dose: 30 mls/hr Documented by: [id number] Infusion: 11/20/18 23:55 Dose: 0 mls/hr Documented by: [id number] Admin: 11/20/18 20:20 Dose: 30 mls/hr Documented by: [id number] Imipramine HCl (Tofranil) 25 mg PO TID NIC Stop: 12/21/18 13:59 Last Admin: 11/24/18 07:39 Dose: 25 mg Documented by: [id number] Admin: 11/23/18 20:52 Dose: 25 mg Documented by: [id number] Admin: 11/23/18 15:02 Dose: 25 mg Documented by: [id number] Admin: 11/23/18 07:43 Dose: 25 mg Documented by: [id number] Admin: 11/22/18 20:59 Dose: 25 mg Documented by: [id number] Admin: 11/22/18 14:02 Dose: 25 mg Documented by: [id number] Admin: 11/22/18 08:43 Dose: 25 mg Documented by: [id number] Admin: 11/21/18 21:16 Dose: 25 mg Documented by: [id number] Admin: 11/21/18 12:56 Dose: Not Given Documented by: [id number] Levothyroxine Sodium (Synthroid) 125 mcg PO DAILYBB NIC Stop: 12/22/18 06:29 Last Admin: 11/24/18 05:23 Dose: 125 mcg Documented by: [id number] Admin: 11/23/18 05:45 Dose: 125 mcg Documented by: [id number] Multivitamins/Minerals (Caltrate Plus) 1 tab PO DAILY NIC Stop: 12/21/18 11:14 Last Admin: 11/24/18 07:39 Dose: 1 tab Documented by: [id number] Admin: 11/23/18 07:44 Dose: 1 tab Documented by: [id number] Admin: 11/22/18 08:42 Dose: 1 tab Documented by: [id number] Admin: 11/21/18 11:34 Dose: Not Given Documented by: [id number] Ondansetron HCl (Zofran) 4 mg IV Q6H PRN PRN Reason: Nausea Stop: 12/20/18 15:54 Last Admin: 11/20/18 20:53 Dose: 4 mg Documented by: [id number] Prednisone (Prednisone) 5 mg PO DAILY [facility]IC Stop: 12/21/18 11:14 Last Admin: 11/24/18 07:39 Dose: 5 mg Documented by: [id number] Admin: 11/23/18 07:44 Dose: 5 mg Documented by: [id number] Admin: 11/22/18 08:43 Dose: 5 mg Documented by: [id number] Admin: 11/21/18 11:34 Dose: Not Given Documented by: [id number] Ranitidine HCl (Zantac) 150 mg PO HS NIC Stop: 12/21/18 20:59 Last Admin: 11/23/18 20:53 Dose: 150 mg Documented by: [id number] Admin: 11/22/18 21:00 Dose: 150 mg Documented by: [id number] Admin: 11/21/18 21:16 Dose: 150 mg Documented by: [id number] Risperidone (Risperdal) 1 mg PO BID NIC Stop: 12/21/18 11:14 Last Admin: 11/24/18 07:39 Dose: 1 mg Documented by: [id number] Admin: 11/23/18 20:52 Dose: 1 mg Documented by: [id number] Admin: 11/23/18 07:45 Dose: 1 mg Documented by: [id number] Admin: 11/22/18 20:58 Dose: 1 mg Documented by: [id number] Admin: 11/22/18 08:42 Dose: 1 mg Documented by: [id number] Admin: 11/21/18 21:16 Dose: 1 mg Documented by: [id number] Admin: 11/21/18 11:34 Dose: Not Given Documented by: [id number] Discontinued Medications Albuterol (Ventolin 0.083% 2.5mg/3ml) 2.5 mg NEB NOW STA Stop: 11/20/18 14:03 Last Admin: 11/20/18 14:34 Dose: 2.5 mg Documented by: [id number] Dextrose (Dextrose 50%) 50 ml IV NOW STA Stop: 11/20/18 14:03 Last Admin: 11/20/18 14:43 Dose: Not Given Documented by: [id number] Sodium Chloride (Nss 1000ml) 1,000 mls @ 999 mls/hr IV .Q1H1M ONE Stop: 11/20/18 15:03 Last Infusion: 11/20/18 15:58 Dose: 0 mls/hr Documented by: [id number] Infusion: 11/20/18 15:58 Dose: 0 mls/hr Documented by: [id number] Admin: 11/20/18 15:02 Dose: 999 mls/hr Documented by: [id number] Piperacillin Sod/Tazobactam Sod (Zosyn) 4.5 gm in 120 mls @ 240 mls/hr IV NOW ONE Stop: 11/20/18 14:27 Last Infusion: 11/20/18 17:57 Dose: 0 mls/hr Documented by: [id number] Admin: 11/20/18 14:48 Dose: 240 mls/hr Documented by: [id number] Levothyroxine Sodium 62.5 mcg/ (Syringe) 3.125 mls @ 2 mls/min IV DAILY@0900 [facility] Stop: 12/21/18 08:59 Last Admin: 11/22/18 08:40 Dose: 2 mls/min Documented by: [id number] Admin: 11/21/18 08:21 Dose: 2 mls/min Documented by: [id number] Dextrose/Sodium Chloride (D5w And Nss) 1,000 mls @ 150 mls/hr IV .Q6H40M NIC Stop: 12/20/18 15:54 Last Admin: 11/20/18 23:04 Dose: Not Given Documented by: [id number] Infusion: 11/20/18 23:03 Dose: 0 mls/hr Documented by: [id number] Infusion: 11/20/18 20:00 Dose: 150 mls/hr Documented by: [id number] Infusion: 11/20/18 19:30 Dose: 0 mls/hr Documented by: [id number] Admin: 11/20/18 16:21 Dose: 150 mls/hr Documented by: [id number] Sodium Chloride (Nss 1000ml) 1,000 mls @ 999 mls/hr IV .Q1H1M ONE Stop: 11/20/18 23:45 Last Infusion: 11/21/18 00:16 Dose: 0 mls/hr Documented by: [id number] Admin: 11/20/18 23:15 Dose: 999 mls/hr Documented by: [id number] Lactated Ringer's (Lr) 1,000 mls @ 200 mls/hr IV .Q5H NIC Stop: 12/21/18 00:00 Last Infusion: 11/22/18 15:43 Dose: 0 mls/hr Documented by: [id number] Admin: 11/22/18 10:37 Dose: 200 mls/hr Documented by: [id number] Infusion: 11/22/18 10:22 Dose: 200 mls/hr Documented by: [id number] Admin: 11/22/18 05:22 Dose: 200 mls/hr Documented by: [id number] Infusion: 11/22/18 05:22 Dose: 200 mls/hr Documented by: [id number] Admin: 11/22/18 00:34 Dose: 200 mls/hr Documented by: [id number] Infusion: 11/22/18 00:34 Dose: 200 mls/hr Documented by: [id number] Admin: 11/21/18 19:43 Dose: 200 mls/hr Documented by: [id number] Infusion: 11/21/18 19:43 Dose: 200 mls/hr Documented by: [id number] Admin: 11/21/18 15:09 Dose: 200 mls/hr Documented by: [id number] Infusion: 11/21/18 15:09 Dose: 200 mls/hr Documented by: [id number] Admin: 11/21/18 10:11 Dose: 200 mls/hr Documented by: [id number] Infusion: 11/21/18 10:00 Dose: 200 mls/hr Documented by: [id number] Admin: 11/21/18 05:00 Dose: 200 mls/hr Documented by: [id number] Infusion: 11/21/18 05:00 Dose: 200 mls/hr Documented by: [id number] Admin: 11/21/18 00:00 Dose: 200 mls/hr Documented by: [id number] Magnesium Sulfate/Dextrose (Magnesium Sulfate / D5w) 1 gm in 100 mls @ 100 mls/hr IV ONE ONE Stop: 11/20/18 23:52 Last Infusion: 11/21/18 00:16 Dose: 0 mls/hr Documented by: [id number] Admin: 11/20/18 23:19 Dose: 100 mls/hr Documented by: [id number] Valproic Acid 1,000 mg/ (Dextrose) 60 mls @ 55 mls/hr IV BID NIC Stop: 12/21/18 00:44 Last Infusion: 11/21/18 09:17 Dose: 0 mls/hr Documented by: [id number] Admin: 11/21/18 07:59 Dose: 55 mls/hr Documented by: [id number] Infusion: 11/21/18 02:19 Dose: 0 mls/hr Documented by: [id number] Admin: 11/21/18 01:15 Dose: 55 mls/hr Documented by: [id number] Valproic Acid 500 mg/ Dextrose 55 mls @ 55 mls/hr IV BID NIC Stop: 12/21/18 20:59 Last Infusion: 11/22/18 09:48 Dose: 0 mls/hr Documented by: [id number] Admin: 11/22/18 08:41 Dose: 55 mls/hr Documented by: [id number] Infusion: 11/21/18 22:34 Dose: 0 mls/hr Documented by: [id number] Admin: 11/21/18 21:34 Dose: 55 mls/hr Documented by: [id number] Insulin Human Regular (Novolin R U-100 Per Unit) 8 units IV NOW STA Stop: 11/20/18 14:03 Last Admin: 11/20/18 14:43 Dose: Not Given Documented by: [id number] Description This is a 21 electrode EEG with a single channel dedicated to limited EKG. The electrodes were placed in accordance with the International 10-20 system.This is a note created in error. The official report exists in another encounter Daniel Horvath MD
--- NOTE | 2018-11-24 11:40 | Procedure Note ---
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 Home Medication List Home Medications Medication Instructions Recorded Confirmed Type ascorbic acid (vitamin C) [Vitamin 1,000 mg PO DAILY 02/10/18 11/20/18 History C] divalproex 1,000 mg PO BID 02/10/18 11/20/18 History imipramine HCl 25 mg PO TID 02/10/18 11/20/18 History levothyroxine 125 mcg PO QAM 02/10/18 11/20/18 History carvedilol 12.5 mg PO BIDM 04/18/18 11/20/18 History cyanocobalamin (vitamin B-12) 1,000 mcg PO DAILY 04/18/18 11/20/18 History [Vitamin B-12] omega 4-jij-bjw-fish oil [Fish Oil] 1,000 mg PO DAILY 04/18/18 11/20/18 History ranitidine HCl 150 mg PO HS 04/18/18 11/20/18 History risperidone 1 mg PO BID 04/18/18 11/20/18 History vitamin E 400 unit PO DAILY 04/18/18 11/20/18 History prednisone 5 mg PO DAILY 04/23/18 11/20/18 History calcium carbonate-vitamin D3 1 tab PO DAILY 11/20/18 11/20/18 History [Calcium 600 + D(3)] duloxetine [Cymbalta] 60 mg PO DAILY 11/20/18 11/20/18 History Inpatient Medication List Acetaminophen (Tylenol) 650 mg PO Q4H PRN PRN Reason: Pain or Fever Stop: 12/20/18 15:54 Last Admin: 11/21/18 16:46 Dose: 650 mg Documented by: [id number] Amlodipine Besylate ([facility]asc) [facility] [place] Stop: 12/24/18 05:59 Last Admin: 11/24/18 06:36 Dose: 5 mg Documented by: [id number] Carvedilol (Coreg) 12.5 mg PO BIDM [facility] [place] Stop: 12/21/18 16:59 Last Admin: 11/24/18 07:38 Dose: Not Given Documented by: [id number] Admin: 11/23/18 17:47 Dose: Not Given Documented by: [id number] Admin: 11/23/18 07:29 Dose: Not Given Documented by: [id number] Admin: 11/22/18 17:12 Dose: Not Given Documented by: [id number] Admin: 11/22/18 08:42 Dose: 12.5 mg Documented by: [id number] Admin: 11/21/18 16:48 Dose: 12.5 mg Documented by: [id number] Cyanocobalamin (Vitamin B-12) 1,000 mcg PO DAILY [facility] [place] Stop: 12/21/18 11:14 Last Admin: 11/24/18 07:39 Dose: 1,000 mcg Documented by: [id number] Admin: 11/23/18 07:44 Dose: 1,000 mcg Documented by: [id number] Admin: 11/22/18 08:41 Dose: 1,000 mcg Documented by: [id number] Admin: 11/21/18 11:34 Dose: Not Given Documented by: [id number] Divalproex Sodium (Depakote Delay Release) 1,000 mg PO BID [facility] [place] Stop: 12/21/18 20:59 Last Admin: 11/24/18 07:39 Dose: 1,000 mg Documented by: [id number] Admin: 11/23/18 20:51 Dose: 1,000 mg Documented by: [id number] Admin: 11/23/18 07:44 Dose: 1,000 mg Documented by: [id number] Admin: 11/22/18 21:12 Dose: Not Given Documented by: [id number] Duloxetine HCl (Cymbalta) 60 mg PO DAILY [facility] [place] Stop: 12/21/18 11:14 Last Admin: 11/24/18 07:38 Dose: 60 mg Documented by: [id number] Admin: 11/23/18 07:45 Dose: 60 mg Documented by: [id number] Admin: 11/22/18 08:41 Dose: 60 mg Documented by: [id number] Admin: 11/21/18 11:34 Dose: Not Given Documented by: [id number] Piperacillin Sod/Tazobactam (Sod 4.5 gm/ Dextrose) 120 mls @ 30 mls/hr IV Q8H [facility] [place]; Protocol Stop: 11/30/18 18:59 Last Infusion: 11/24/18 09:01 Dose: 0 mls/hr Documented by: [id number] Admin: 11/24/18 04:32 Dose: 30 mls/hr Documented by: [id number] Infusion: 11/24/18 00:54 Dose: 0 mls/hr Documented by: [id number] Admin: 11/23/18 20:50 Dose: 30 mls/hr Documented by: [id number] Infusion: 11/23/18 15:14 Dose: 0 mls/hr Documented by: [id number] Admin: 11/23/18 11:12 Dose: 30 mls/hr Documented by: [id number] Infusion: 11/23/18 08:26 Dose: 0 mls/hr Documented by: [id number] Admin: 11/23/18 03:59 Dose: 30 mls/hr Documented by: [id number] Infusion: 11/23/18 01:36 Dose: 0 mls/hr Documented by: [id number] Admin: 11/22/18 20:57 Dose: 30 mls/hr Documented by: [id number] Infusion: 11/22/18 15:43 Dose: 0 mls/hr Documented by: [id number] Admin: 11/22/18 11:26 Dose: 30 mls/hr Documented by: [id number] Infusion: 11/22/18 07:16 Dose: 0 mls/hr Documented by: [id number] Admin: 11/22/18 03:04 Dose: 30 mls/hr Documented by: [id number] Infusion: 11/21/18 22:20 Dose: 0 mls/hr Documented by: [id number] Admin: 11/21/18 18:20 Dose: 30 mls/hr Documented by: [id number] Infusion: 11/21/18 15:09 Dose: 0 mls/hr Documented by: [id number] Admin: 11/21/18 11:04 Dose: 30 mls/hr Documented by: [id number] Infusion: 11/21/18 07:59 Dose: 0 mls/hr Documented by: [id number] Admin: 11/21/18 03:50 Dose: 30 mls/hr Documented by: [id number] Infusion: 11/20/18 23:55 Dose: 0 mls/hr Documented by: [id number] Admin: 11/20/18 20:20 Dose: 30 mls/hr Documented by: [id number] Imipramine HCl (Tofranil) 25 mg PO TID NIC Stop: 12/21/18 13:59 Last Admin: 11/24/18 07:39 Dose: 25 mg Documented by: [id number] Admin: 11/23/18 20:52 Dose: 25 mg Documented by: [id number] Admin: 11/23/18 15:02 Dose: 25 mg Documented by: [id number] Admin: 11/23/18 07:43 Dose: 25 mg Documented by: [id number] Admin: 11/22/18 20:59 Dose: 25 mg Documented by: [id number] Admin: 11/22/18 14:02 Dose: 25 mg Documented by: [id number] Admin: 11/22/18 08:43 Dose: 25 mg Documented by: [id number] Admin: 11/21/18 21:16 Dose: 25 mg Documented by: [id number] Admin: 11/21/18 12:56 Dose: Not Given Documented by: [id number] Levothyroxine Sodium (Synthroid) 125 mcg PO DAILY [facility] Stop: 12/22/18 06:29 Last Admin: 11/24/18 05:23 Dose: 125 mcg Documented by: [id number] Admin: 11/23/18 05:45 Dose: 125 mcg Documented by: [id number] Multivitamins/Minerals (Caltrate Plus) 1 tab PO DAILY [facility] Stop: 12/21/18 11:14 Last Admin: 11/24/18 07:39 Dose: 1 tab Documented by: [id number] Admin: 11/23/18 07:44 Dose: 1 tab Documented by: [id number] Admin: 11/22/18 08:42 Dose: 1 tab Documented by: [id number] Admin: 11/21/18 11:34 Dose: Not Given Documented by: [id number] Ondansetron HCl (Zofran) 4 mg IV Q6H PRN PRN Reason: Nausea Stop: 12/20/18 15:54 Last Admin: 11/20/18 20:53 Dose: 4 mg Documented by: [id number] Prednisone (Prednisone) 5 mg PO DAILY [facility] Stop: 12/21/18 11:14 Last Admin: 11/24/18 07:39 Dose: 5 mg Documented by: [id number] Admin: 11/23/18 07:44 Dose: 5 mg Documented by: [id number] Admin: 11/22/18 08:43 Dose: 5 mg Documented by: [id number] Admin: 11/21/18 11:34 Dose: Not Given Documented by: [id number] Ranitidine HCl (Zantac) 150 mg PO NIC Stop: 12/21/18 20:59 Last Admin: 11/23/18 20:53 Dose: 150 mg Documented by: [id number] Admin: 11/22/18 21:00 Dose: 150 mg Documented by: [id number] Admin: 11/21/18 21:16 Dose: 150 mg Documented by: [id number] Risperidone (Risperdal) 1 mg PO BID [facility]IC Stop: 12/21/18 11:14 Last Admin: 11/24/18 07:39 Dose: 1 mg Documented by: [id number] Admin: 11/23/18 20:52 Dose: 1 mg Documented by: [id number] Admin: 11/23/18 07:45 Dose: 1 mg Documented by: [id number] Admin: 11/22/18 20:58 Dose: 1 mg Documented by: [id number] Admin: 11/22/18 08:42 Dose: 1 mg Documented by: [id number] Admin: 11/21/18 21:16 Dose: 1 mg Documented by: [id number] Admin: 11/21/18 11:34 Dose: Not Given Documented by: [id number] Discontinued Medications Albuterol (Ventolin 0.083% 2.5mg/3ml) 2.5 mg NEB NOW STA Stop: 11/20/18 14:03 Last Admin: 11/20/18 14:34 Dose: 2.5 mg Documented by: [id number] Dextrose (Dextrose 50%) 50 ml IV NOW STA Stop: 11/20/18 14:03 Last Admin: 11/20/18 14:43 Dose: Not Given Documented by: [id number] Sodium Chloride (Nss 1000ml) 1,000 mls @ 999 mls/hr IV .Q1H1M ONE Stop: 11/20/18 15:03 Last Infusion: 11/20/18 15:58 Dose: 0 mls/hr Documented by: [id number] Infusion: 11/20/18 15:58 Dose: 0 mls/hr Documented by: [id number] Admin: 11/20/18 15:02 Dose: 999 mls/hr Documented by: [id number] Piperacillin Sod/Tazobactam Sod (Zosyn) 4.5 gm in 120 mls @ 240 mls/hr IV NOW ONE Stop: 11/20/18 14:27 Last Infusion: 11/20/18 17:57 Dose: 0 mls/hr Documented by: [id number] Admin: 11/20/18 14:48 Dose: 240 mls/hr Documented by: [id number] Levothyroxine Sodium 62.5 mcg/ (Syringe) 3.125 mls @ 2 mls/min IV DAILY@0900 [facility] Stop: 12/21/18 08:59 Last Admin: 11/22/18 08:40 Dose: 2 mls/min Documented by: [id number] Admin: 11/21/18 08:21 Dose: 2 mls/min Documented by: [id number] Dextrose/Sodium Chloride (D5w And Nss) 1,000 mls @ 150 mls/hr IV .Q6H40M [facility] Stop: 12/20/18 15:54 Last Admin: 11/20/18 23:04 Dose: Not Given Documented by: [id number] Infusion: 11/20/18 23:03 Dose: 0 mls/hr Documented by: [id number] Infusion: 11/20/18 20:00 Dose: 150 mls/hr Documented by: [id number] Infusion: 11/20/18 19:30 Dose: 0 mls/hr Documented by: [id number] Admin: 11/20/18 16:21 Dose: 150 mls/hr Documented by: [id number] Sodium Chloride (Nss 1000ml) 1,000 mls @ 999 mls/hr IV .Q1H1M ONE Stop: 11/20/18 23:45 Last Infusion: 11/21/18 00:16 Dose: 0 mls/hr Documented by: [id number] Admin: 11/20/18 23:15 Dose: 999 mls/hr Documented by: [id number] Lactated Ringer's (Lr) 1,000 mls @ 200 mls/hr IV .Q5H NIC Stop: 12/21/18 00:00 Last Infusion: 11/22/18 15:43 Dose: 0 mls/hr Documented by: [id number] Admin: 11/22/18 10:37 Dose: 200 mls/hr Documented by: [id number] Infusion: 11/22/18 10:22 Dose: 200 mls/hr Documented by: [id number] Admin: 11/22/18 05:22 Dose: 200 mls/hr Documented by: [id number] Infusion: 11/22/18 05:22 Dose: 200 mls/hr Documented by: [id number] Admin: 11/22/18 00:34 Dose: 200 mls/hr Documented by: [id number] Infusion: 11/22/18 00:34 Dose: 200 mls/hr Documented by: [id number] Admin: 11/21/18 19:43 Dose: 200 mls/hr Documented by: [id number] Infusion: 11/21/18 19:43 Dose: 200 mls/hr Documented by: [id number] Admin: 11/21/18 15:09 Dose: 200 mls/hr Documented by: [id number] Infusion: 11/21/18 15:09 Dose: 200 mls/hr Documented by: [id number] Admin: 11/21/18 10:11 Dose: 200 mls/hr Documented by: [id number] Infusion: 11/21/18 10:00 Dose: 200 mls/hr Documented by: [id number] Admin: 11/21/18 05:00 Dose: 200 mls/hr Documented by: [id number] Infusion: 11/21/18 05:00 Dose: 200 mls/hr Documented by: [id number] Admin: 11/21/18 00:00 Dose: 200 mls/hr Documented by: [id number] Magnesium Sulfate/Dextrose (Magnesium Sulfate / D5w) 1 gm in 100 mls @ 100 mls/hr IV ONE ONE Stop: 11/20/18 23:52 Last Infusion: 11/21/18 00:16 Dose: 0 mls/hr Documented by: [id number] Admin: 11/20/18 23:19 Dose: 100 mls/hr Documented by: [id number] Valproic Acid 1,000 mg/ (Dextrose) 60 mls @ 55 mls/hr IV BID NIC Stop: 12/21/18 00:44 Last Infusion: 11/21/18 09:17 Dose: 0 mls/hr Documented by: [id number] Admin: 11/21/18 07:59 Dose: 55 mls/hr Documented by: [id number] Infusion: 11/21/18 02:19 Dose: 0 mls/hr Documented by: [id number] Admin: 11/21/18 01:15 Dose: 55 mls/hr Documented by: [id number] Valproic Acid 500 mg/ Dextrose 55 mls @ 55 mls/hr IV BID NIC Stop: 12/21/18 20:59 Last Infusion: 11/22/18 09:48 Dose: 0 mls/hr Documented by: [id number] Admin: 11/22/18 08:41 Dose: 55 mls/hr Documented by: [id number] Infusion: 11/21/18 22:34 Dose: 0 mls/hr Documented by: [id number] Admin: 11/21/18 21:34 Dose: 55 mls/hr Documented by: [id number] Insulin Human Regular (Novolin R U-100 Per Unit) 8 units IV NOW STA Stop: 11/20/18 14:03 Last Admin: 11/20/18 14:43 Dose: Not Given Documented by: [id number] Description This is a 21 electrode EEG with a single channel dedicated to limited EKG. The electrodes were placed in accordance with the International 10-20 system. This EEG was done as a bedside recording and is a reasonable technical quality with fewer no muscle or movement artifacts photic stimulation was performed. No other activation procedures were obtained the tracing appeared to be done during a drowsy state based on the patient's clinical appearance and video analysis Under these conditions there is evidence for a background rhythm which is of low voltage, in the upper theta range of up to 8 Hz and maximum frequency and of up to 15 V maximal amplitude. Mid frequency low voltage theta activity is seen over the central regions in symmetrical fashion. Low voltage fast activity at beta range is present bifrontally At times during the tracing when the patient is aroused by physical stimulation the background amplitude becomes higher and approaches the alpha range at times almost getting into the 9 Hz range but the tracing otherwise is unchanged Photic stimulation provokes no significant abnormalities nor is there is significant driving response No time during the tracing is or evidence for potentially epileptogenic activity in the form of polyspike and spike-wave bursts, focal sharp waves, focal spikes, triphasic waves or indeed any other abnormal spontaneous patterns Interpretation This EEG is most mildly diffusely abnormal during wakefulness without evidence for any associated potentially epileptogenic features and without evidence to suggest triphasic waves or other indicators of a hypoxic or hepatic encephalopathy Clinical Correlation Mildly abnormal EEG during wakefulness consistent with a generalized nonspecific encephalopathy and revealing no evidence for potentially epileptogenic activity Daniel Horvath MD
[2018-11-24] MEDS ORDERED: FUROSEMIDE 40 MG/4 ML VIAL IV STA (12:47)
--- NOTE | 2018-11-24 14:54 | Hospitalist Progress Note ---
Date of Service November 24, 2018 Assessment & Plan (1) Acute metabolic encephalopathy: This is a 53 yr old M who has a significant pmh of HTN, HLD, CKD-3, Vasculitis on chronic prednisone therapy, bipolar depression, post traumatic seizure disorder, chronic thrombocytopenia, RBBB who presents to [facility] secondary to altered mental status and abdominal pain x 1 day. Likely secondary to infection, UTI versus pneumonia and complicated by acute pancreatitis and acute renal failure Much improved today but remains pleasantly confused Responding to vocal commands and trying to communicate No apparent distress Appreciate neurology input and recommendation Speech evaluation done-advised thickened diet MRI of the head-no acute findings EEG-Mildly abnormal EEG during wakefulness consistent with a generalized nonspecific encephalopathy and revealing no evidence for potentially epileptogenic activity Clinically little bit better but the confusion persist If the condition remains unchanged or deteriorates further plan will be to do LP (2) Pancreatitis: Presented with abdominal pain and nausea CT scan did show:CT abdomen pelvis revealed acute pancreatitis, trace pleural effusion and trace abdominal pelvic ascites, gallbladder sludge, diverticulosis Kept on n.p.o. and administered IV fluid No narcotics were administered Clinically better with normalization of lipase Will start clears and advance as tolerated Getting fluid overload and will stop IV fluid Pancreatitis seems to be resolved (3) Pneumonia: Chest x-ray concerning for left basilar opacity and pleural effusion possibly consistent with pneumonia Urinalysis does have positive leukoesterase and nitrites, but negative bacteria -Per patient's sister he has history of UTI which presents as confusion Patient does not meet Sepsis Criteria Continue IV antibiotics with Zosyn, obtain mRSA nasal swab if negative will not cover for MRSA given concern for SHIELA Abd U/S Limited to RUQ to r/o gall bladder pathology as etiology of pancreatitis - currently unknown no ETOH or NSAID obtain NH3, blood cultures Urine culture has been negative Blood cultures have been negative We will continue current antibiotic clinic total of 5 days Symptomatically improved (4) Acute renal failure superimposed on stage 3 chronic kidney disease: Baseline creatinine 2.0 BUN/creatinine 44 and 2.60 today IVF ordered Follow BMP, repeat today 8 p.m. Daily and has been improving Renal function has been improving and creatinine is 1.6 today We monitor BMP (5) Electrolyte abnormality: Na 132, K 5.3 likely in setting of SHIELA; however keep adrenal insuff on differential am cortisol level-within normal limit Electrolytes have been normal as of this morning (6) Hypertension: Blood pressure stable On carvedilol will hold on p.o. (7) Hypothyroidism: Continue levothyroxine, convert IV (8) Bipolar disorder: Continue Depakote, will convert to IV while n.p.o. Hold Risperdal for now resume when able to tolerate p.o. or consider conversion to IM (9) Thrombocytopenia: Platelet count stable at 61 Chronically runs between 60 and 100 Had peripheral smear done in admission 04/2018 which was unrevealing Platelet remains low at 52 and 43 on 11/22 Remains in the lower side at 42 (10) DVT prophylaxis: SCDS/TEDS Avoid chemical prophylaxis in setting of platelets 61, chronic thrombocytopenia Discussed with the sister in detail Updated about present condition Will try to start solid food as soon as possible and the medications Will advise PT and OT evaluation His sister was updated 11/24 I had a long discussion with the sister We went over every possible details about her brother's condition including each and every lab report and imaging studies Was verbalized that encephalopathy is taking more time to improve She agreed with current management plan; heart name is Barby and her cell number is area code [phone]/ Subjective 11/21 Patient was seen and examined in telemetry unit This is a 53 yr old M who has a significant pmh of HTN, HLD, CKD-3, Vasculitis on chronic prednisone therapy, bipolar depression, post traumatic seizure disorder, chronic thrombocytopenia, RBBB who presents to [facility] secondary to altered mental status and abdominal pain x 1 day Noted to have acute pancreatitis on CT of the abdomen and pelvis with possible UTI Remains very drowsy and lethargic Denies any acute pain and/or heart symptoms 11/22 Patient was seen and examined in telemetry unit He remains drowsy but has been conversing reasonably Pleasantly confused Still has some abdominal discomfort 11/23 Patient was seen and examined in the telemetry unit He seems to be little better today but continues to have mild confusion Does not have any significant neuro deficit Denies any significant pain 11/24 The patient was seen and examined in telemetry unit He has been alert and awake but remains pleasantly confused Clinically better except with confusion No apparent distress and denies any significant symptoms Review of Systems Review of Systems: All systems reviewed and are unremarkable except as noted below Constitutional: + weakness, + daytime sleepiness and + problem reported (Remains confused) Respiratory: no dyspnea Cardiovascular: no chest pain Gastrointestinal: no abdominal pain and no nausea Neurologic: Alert, awake but pleasantly confused Physical Exam Physical Exam: Lying in bed comfortably Constitutional: well developed, well nourished and + ill appearing; no acute distress Eyes: PERRL, conjunctivae normal, anicteric sclerae ENMT: external ear and nose normal, oropharynx normal Neck: trachea midline, no thyromegaly Respiratory: normal respiratory effort; no respiratory distress Auscultation: + diminished lung sounds and + crackles (Minimal bibasilar crackl es) Cardiovascular: Rate/Rhythm: regular rate and regular rhythm Heart Sounds: no murmur Gastrointestinal (Abdomen): Inspection/Auscultation: abdomen normal to inspection and normal bowel sounds Percussion/Palpation: abdomen soft; abdomen nontender and no ascites Skin: Looks bloated Neurologic: moves all extremities; no focal motor deficits Speech / Cognition: + abnormal speech (Garbled speech at times) Motor/Sensory: no tremor Lymphatic: no cervical or axillary lymphadenopathy Results & Data Vital Signs (Past 12 Hours) Vital Signs Temp Pulse Resp BP BP Pulse Ox 11/24/18 10:38 37.0 C 51 L 19 153/79 H 97 11/24/18 07:12 36.6 C 56 L 19 171/77 H 91 11/24/18 05:49 187/84 H 11/24/18 03:32 37.2 C 59 L 18 182/8 H 193/70 H 92 Laboratory Results [facility] 11/24/18 05:15 Creatinine 1.60 H Medications Administered Current Inpatient Medications Acetaminophen (Tylenol) 650 mg PO Q4H PRN PRN Reason: Pain or Fever Stop: 12/20/18 15:54 Last Admin: 11/21/18 16:46 Dose: 650 mg Documented by: Amlodipine Besylate (Norvasc) 5 mg PO QAM [facility] Stop: 12/24/18 05:59 Last Admin: 11/24/18 06:36 Dose: 5 mg Documented by: Carvedilol (Coreg) 12.5 mg PO BIDM [facility] Stop: 12/21/18 16:59 Last Admin: 11/24/18 07:38 Dose: Not Given Documented by: Cyanocobalamin (Vitamin B-12) 1,000 mcg PO DAILY [facility] Stop: 12/21/18 11:14 Last Admin: 11/24/18 07:39 Dose: 1,000 mcg Documented by: Divalproex Sodium (Depakote Delay Release) 1,000 mg PO BID [facility] Stop: 12/21/18 20:59 Last Admin: 11/24/18 07:39 Dose: 1,000 mg Documented by: Duloxetine HCl (Cymbalta) 60 mg PO DAILY [facility] Stop: 12/21/18 11:14 Last Admin: 11/24/18 07:38 Dose: 60 mg Documented by: Piperacillin Sod/Tazobactam (Sod 4.5 gm/ Dextrose) 120 mls @ 30 mls/hr IV Q8H [facility]; Protocol Stop: 11/30/18 18:59 Last Admin: 11/24/18 11:35 Dose: 30 mls/hr Documented by: Imipramine HCl (Tofranil) 25 mg PO TID [facility] Stop: 12/21/18 13:59 Last Admin: 11/24/18 14:47 Dose: Not Given Documented by: Levothyroxine Sodium (Synthroid) 125 mcg PO DAILYBB [facility] Stop: 12/22/18 06:29 Last Admin: 11/24/18 05:23 Dose: 125 mcg Documented by: Miscellaneous Information (Consult) 1 ea N/A UD PRN PRN Reason: Consult Stop: 12/20/18 15:54 Multivitamins/Minerals (Caltrate Plus) 1 tab PO DAILY [facility] Stop: 12/21/18 11:14 Last Admin: 11/24/18 07:39 Dose: 1 tab Documented by: Ondansetron HCl (Zofran) 4 mg IV Q6H PRN PRN Reason: Nausea Stop: 12/20/18 15:54 Last Admin: 11/20/18 20:53 Dose: 4 mg Documented by: Polyethylene Glycol (Miralax Powder Packet) 17 gm PO DAILY PRN PRN Reason: Constipation Stop: 12/20/18 15:54 Prednisone (Prednisone) 5 mg PO DAILY [facility] Stop: 12/21/18 11:14 Last Admin: 11/24/18 07:39 Dose: 5 mg Documented by: Ranitidine HCl (Zantac) 150 mg PO HS [facility] Stop: 12/21/18 20:59 Last Admin: 11/23/18 20:53 Dose: 150 mg Documented by: Risperidone (Risperdal) 1 mg PO BID [facility] Stop: 12/21/18 11:14 Last Admin: 11/24/18 07:39 Dose: 1 mg Documented by:
[2018-11-24] MEDS: MULTIVITAMIN TAB PO SCH (20:45)
[2018-11-24] MEDS: THIAMINE HCL 200 MG in SODIUM CHLORIDE 0.9% 50 ML IV SCH (20:45)
[2018-11-25] MEDS: PIPERACILLIN/TAZOBACTAM 4.5 GM in DEXTROSE 5% 100 ML IV SCH ×3 (03:22→20:00)
[2018-11-25] MEDS: LEVOTHYROXINE SODIUM 125 MCG TABLET PO SCH (05:50)
[2018-11-25 06:02] LABS: Hematocrit (blood only) 33.9 % (42-52); Hemoglobin 10.7 g/dL (14.0-18.0); Mean Corpuscular Hgb Conc 31.6 g/dL (32-36); Mean Corpuscular Volume 96.6 fL (80-100); RDW Standard Deviation 63.7 fL (36.4-46.3); Red Blood Count 3.51 M/uL (4.7-6.1); White Blood Count 3.91 K/uL (4.8-10.8)
[2018-11-25 06:07] LABS: Mean Platelet Volume 9.9 fL (7.4-10.4); Platelet Count 56 K/uL (130-400)
[2018-11-25 06:31] LABS: Basophils # (auto) 0.01 K/uL (0-0.2); Basophils % (auto) 0.3 %; Eosinophils # (auto) 0.11 K/uL (0-0.5); Eosinophils % (auto) 2.8 %; Immature Granulocytes # (auto) 0.15 K/uL (0.00-0.02); Immature Granulocytes % (auto) 3.8 %; Lymphocytes # (auto) 0.63 K/uL (1.2-3.4); Lymphocytes % (auto) 16.1 %; Monocytes # (auto) 0.72 K/uL (0.11-0.59); Monocytes % (auto) 18.4 %; Neutrophils # (auto) 2.29 K/uL (1.4-6.5); Neutrophils % (auto) 58.6 %; RBC Morphology Unremarkable
[2018-11-25 06:36] LABS: Albumin Level 1.4 gm/dl (3.4-5.0); Calcium 10.2 mg/dl (8.5-10.1); Creatinine Clr Calc Pharmacy 62.3 ml/min; Est GFR (African American) 54.6; Est GFR (Non-African American) 47.1; Magnesium 1.7 mg/dl (1.8-2.4); Potassium 4.3 mmol/L (3.5-5.1)
[2018-11-25 06:39] LABS: Albumin Globulin Ratio 0.3 (0.9-2); Bilirubin,Total 0.7 mg/dl (0.2-1); Globulin 4.4 gm/dl (2.5-4.0); Phosphorus 2.8 mg/dl (2.5-4.9); Total Protein 5.8 gm/dl (6.4-8.2)
[2018-11-25] MEDS: CARVEDILOL 12.5 MG TAB PO SCH ×2 (07:31→16:48)
[2018-11-25] MEDS: predniSONE 5 MG TAB PO SCH (07:32)
[2018-11-25] MEDS: DIVALPROEX DELAY RELEASE 500 MG TAB PO SCH ×2 (07:32→20:43)
[2018-11-25] MEDS: IMIPRAMINE HCL 25 MG TAB PO SCH ×3 (07:32→20:43)
[2018-11-25] MEDS: DULOXETINE HCL 60 MG CAP PO SCH (07:32)
[2018-11-25] MEDS: CYANOCOBALAMIN 500 MCG TABLET (VITAMIN B-12) PO SCH (07:33)
[2018-11-25] MEDS: risperiDONE 1 MG TABLET PO SCH ×2 (07:33→20:43)
[2018-11-25] MEDS: MULTIVITAMIN TAB PO SCH (07:33)
[2018-11-25] MEDS: CALCIUM 600MG + VIT D 400 IU TAB PO SCH (07:33)
[2018-11-25] MEDS: AMLODIPINE BESYLATE 5 MG TAB PO SCH (07:33)
[2018-11-25] MEDS: THIAMINE HCL 200 MG in SODIUM CHLORIDE 0.9% 50 ML IV SCH ×3 (07:34→20:38)
[2018-11-25 13:13] LABS: Base Excess ABG 6.1 mEq/L (-9-1.8); HCO3 ABG 33 mmol/L (19-24); Oxygen Saturation ABG 96.2 % (90-95); PCO2 ABG 57 mmHg (35-46); PO2 ABG 91 mm/Hg (80-95); pH ABG 7.37 (7.35-7.45)
[2018-11-25 13:14] LABS: Allen Test Pos (Pos)
--- NOTE | 2018-11-25 14:28 | Neurology Progress Note ---
Date of Service November 25, 2018 Assessment & Plan (1) Acute metabolic encephalopathy: 1. likely a combination of factors causing encephalopathy- possible pneumonia, pancreatitis, acute on chronic renal failure 2. MRI brain MS change- no stroke or lesion noted 3. pancreatitis would hydrate with IV fluids and current on pureed diet 4. seizure disorder but no recorded seizures x 10 years- post traumatic. 5. PT/OT for discharge needs 6. EEG no seizure focus 7. LP may help with diagnosis- unclear what his baseline was but sister states he is not at baseline 8. continue to treat pneumonitis with Zosyn per primary team (2) Pancreatitis: as above (3) Acute renal failure superimposed on stage 3 chronic kidney disease: as above Supervising Physician Co-Signing Physician Notes I have seen and discussed above patient with Dr Daniel Horvath, neurology Tigre looks a little better today. He is more easily arousable and his speech seems a little clearer but is still significantly dysarthric. I think his orientation is improved and he recognizes that he is in the hospital response to his name and actually responded to questions about his sister when I read the note that she had left him yesterday. I believe even new today was Sunday as his sister stated that she would be coming to visit him on Sunday which is tomorrow Rest examination is pretty much the same and imaging studies admittedly of limited scope show no evidence for an acute infarction and no significant accumulation of high T2 intensity signals and an EEG shows a most mild generalized slowing without any potentially epileptogenic activity We are toying with the diagnosis of "pancreatic encephalopathy, rarely describes syndrome of uncertain causation but occurring in the setting of acute pancreatitis and apparently not infrequently fatal and up to 50% of cases but knees there is more of a systemic collapse with multiple organ systems failing and this is not the case here. I have my doubts that this diagnosis is valid but it is 1 of our working concept. In this entity there is at times a deficiency of thiamine and encephalopathy ask much like a Korsakoff's psychosis. In this man's case with an underlying bipolar disorder with psychotic features it would be very difficult to make a distinction but I did recommend to Dr. Leyva yesterday that we obtain a thiamine level and give this man high doses of intravenous thiamine and this is currently underway Whether his slight improvement reflects this maneuver or tincture of time cannot be established and frankly I suspect is more of the latter than the former For now we will hold off on the concept of doing a lumbar puncture as this man is slightly better, he is on multiple antibiotics which would have TUNNEL KILN [employer]ER penetration, there is absolutely no evidence for meningeal signs, his white count is falling and he remains afebrile We will await the results of the thiamine level which may be delayed for up to a week and we will see him in follow-up tomorrow Daniel Horvath MD Xiang Landeros is a 53 yr old male with PMH of HTN, HLD, CKD-3, Vasculitis on chronic prednisone therapy, bipolar depression, post traumatic seizure disorder, chronic thrombocytopenia, RBBB who presents to [facility] secondary to altered mental status and abdominal pain. He was last known well yesterday morning his sister saw him in the morning and felt him to have increased confusion, "this is how he gets when he has a UTI," difficulty with ADLS, weakness and he was complaining of abdominal pain. She is aware he had a BM prior to arrival but is unsure if any diarrhea. He uses a hover round but is able to ambulate with walker to assist with ADLs. He is functional but disabled at baseline. He has a hx of narcotic overdose and currently does not take any narcotics. Has a medication lock box that dispenses his medications and sister assists with this. Sister denies any known seizures, last 10 years ago had grand mal secondary to trauma, none since. He is compliant with medications including depakote and risperdal for bipolar according to his sister. He is sleep when entering the room but lethargic. He wakes easily but is difficult to understand. No family in room. Nursing reports he eat his breakfast this am but went back to sleep after finished. denies CP, SOB abdominal pain, one sided weakness, numbness tingling, swallowing issues. Physical Exam Physical Exam: Gen: alert with voice command lungs course breath sound, wet cough CV RRR squeezes bilaterally but not good effort, does not cooperate for further exam states in hospital but doesn't respond to which hosptial or other orientation questions or just mumbles. Results & Data Vital Signs (Past 12 Hours) Vital Signs Temp Pulse Resp BP BP Pulse Ox 11/25/18 11:09 36.7 C 53 L 19 141/76 H 99 11/25/18 07:55 36.6 C 63 18 130/79 100 07/15/19 03:34 36.7 C 58 L 20 147/89 H 98 Laboratory Results Abnormal lab results 11/24/18 11/25/18 11/25/18 Range/Units 20:12 05:39 05:39 WBC 3.91 L (4.8-10.8) K/uL RBC 3.51 L (4.7-6.1) M/uL Hgb 10.7 L (14.0-18.0) g/dL Hct 33.9 L (42-52) % MCHC 31.6 L (32-36) g/dL RDW Std Deviation 63.7 H (36.4-46.3) fL RDW Coeff of Debra 18.0 H (11.5-14.5) % Plt Count 56 L (130-400) K/uL Immature Gran # (Auto) 0.15 H (0.00-0.02) K/uL Lymph # (Auto) 0.63 L (1.2-3.4) K/uL [place] # (Auto) 0.72 H (0.11-0.59) K/uL ABG pCO2 (35-46) mmHg ABG HCO3 (19-24) mmol/L ABG O2 Saturation (90-95) % ABG Base Excess (-9-1.8) mEq/L Carbon Dioxide 35 H (21-32) mmol/L Anion Gap 2.0 L (3-11) BUN 32 H (7-18) mg/dl Creatinine 1.62 H (0.6-1.4) mg/dl Glucose 133 H (70-99) mg/dl POC Glucose 159 H (70-99) Calcium 10.2 H (8.5-10.1) mg/dl Magnesium 1.7 L (1.8-2.4) mg/dl ALT 10 L (12-78) U/L Total Protein 5.8 L (6.4-8.2) gm/dl Albumin 1.4 L (3.4-5.0) gm/dl Globulin 4.4 H (2.5-4.0) gm/dl Albumin/Globulin Ratio 0.3 L (0.9-2) 11/25/18 Range/Units 13:01 WBC (4.8-10.8) K/uL RBC (4.7-6.1) M/uL Hgb (14.0-18.0) g/dL Hct (42-52) % MCHC (32-36) g/dL RDW Std Deviation (36.4-46.3) fL RDW Coeff of Debra (11.5-14.5) % Plt Count (130-400) K/uL Immature Gran # (Auto) (0.00-0.02) K/uL Lymph # (Auto) (1.2-3.4) K/uL [place] # (Auto) (0.11-0.59) K/uL ABG pCO2 57 H (35-46) mmHg ABG HCO3 33 H (19-24) mmol/L ABG O2 Saturation 96.2 H (90-95) % ABG Base Excess 6.1 H (-9-1.8) mEq/L Carbon Dioxide (21-32) mmol/L Anion Gap (3-11) BUN (7-18) mg/dl Creatinine (0.6-1.4) mg/dl Glucose (70-99) mg/dl POC Glucose (70-99) Calcium (8.5-10.1) mg/dl Magnesium (1.8-2.4) mg/dl ALT (12-78) U/L Total Protein (6.4-8.2) gm/dl Albumin (3.4-5.0) gm/dl Globulin (2.5-4.0) gm/dl Albumin/Globulin Ratio (0.9-2) Diagnostic Findings MRI brain-mited evaluation due to early termination of the exam as a consequence of patient motion and scanner malfunction. This moderately limits diagnostic sensitivity of the exam. Allowing for this, no evidence of ischemia or gross abnormality. Age-related change. EEG-ildly abnormal EEG during wakefulness consistent with a generalized nonspecific encephalopathy and revealing no evidence for potentially epileptogenic activity
--- NOTE | 2018-11-25 18:35 | Hospitalist Progress Note ---
Date of Service November 25, 2018 Assessment & Plan (1) Acute metabolic encephalopathy: per Dr. Leyva's notes: Acute Metabolic Encephalopathy This is a 53 yr old M who has a significant pmh of HTN, HLD, CKD-3, Vasculitis on chronic prednisone therapy, bipolar depression, post traumatic seizure d isorder, chronic thrombocytopenia, RBBB who presents to [facility] ED secondary to altered mental status and abdominal pain x 1 day. Likely secondary to infection, UTI versus pneumonia and complicated by acute pancreatitis and acute renal failure Much improved today but remains pleasantly confused Responding to vocal commands and trying to communicate No apparent distress Appreciate neurology input and recommendation Speech evaluation done-advised thickened diet MRI of the head-no acute findings EEG-Mildly abnormal EEG during wakefulness consistent with a generalized nonspecific encephalopathy and revealing no evidence for potentially epileptogenic activity Clinically little bit better but the confusion persist If the condition remains unchanged or deteriorates further plan will be to do LP November 25, 2018 slightly improved possible pancreatiic encephalopathy per Neuro continue Thiamine management of pancreatitits noted below (2) Pancreatitis: Presented with abdominal pain and nausea CT scan did show:CT abdomen pelvis revealed acute pancreatitis, trace pleural effusion and trace abdominal pelvic ascites, gallbladder sludge, diverticulosis Kept on n.p.o. and administered IV fluid No narcotics were administered Clinically better with normalization of lipase Will start clears and advance as tolerated Getting fluid overload and will stop IV fluid Pancreatitis seems to be resolved (3) Pneumonia: Chest x-ray concerning for left basilar opacity and pleural effusion possibly consistent with pneumonia Urinalysis does have positive leukoesterase and nitrites, but negative bacteria -Per patient's sister he has history of UTI which presents as confusion Patient does not meet Sepsis Criteria Continue IV antibiotics with Zosyn, obtain mRSA nasal swab if negative will not cover for MRSA given concern for SHIELA Abd U/S Limited to RUQ to r/o gall bladder pathology as etiology of pancreatitis - currently unknown no ETOH or NSAID obtain NH3, blood cultures Urine culture has been negative Blood cultures have been negative We will continue current antibiotic clinic total of 5 days Symptomatically improved November 25, 2018 continue Zosyn wean off o2 (4) Acute renal failure superimposed on stage 3 chronic kidney disease: Baseline creatinine 2.0 BUN/creatinine 44 and 2.60 today IVF ordered Follow BMP, repeat today 8 p.m. Daily and has been improving Renal function has been improving and creatinine is 1.6 today We monitor BMP November 25, 2018 crea improved (5) Electrolyte abnormality: Na 132, K 5.3 likely in setting of SHIELA; however keep adrenal insuff on differential am cortisol level-within normal limit resolved (6) Hypertension: Blood pressure stable On carvedilol will hold on p.o. (7) Hypothyroidism: Continue levothyroxine, convert IV (8) Bipolar disorder: Continue Depakote, and Risperidone (9) Thrombocytopenia: Platelet count stable at 61 Chronically runs between 60 and 100 Had peripheral smear done in admission 04/2018 which was unrevealing Platelet remains low at 52 and 43 on 11/22 Plt 52k (10) DVT prophylaxis: SCDS/TEDS Avoid chemical prophylaxis in setting of platelets 61, chronic thrombocytopenia Subjective ff up for pneu ff up for encephalopathy seen resting in bed, comfortable mostly alert oriented x 1 denies cough, shortness of breath, sputum denies abdominal pain no other symptoms Review of Systems Review of Systems: All systems reviewed & are unremarkable except as noted in HPI & below Physical Exam Physical Exam: General- oriented x1, not in distress, speaks in sentences with no effort or accessory muscle use Eyes- anicteric Neck- no JVD Lungs- mild rhonchi, left base Heart- normal rate, regular rhythm; no murmurs Abdomen- normal bowel sounds, nondistended, soft, nontender Extremities- no pretibial edema, no calf tenderness Neuro- alert, oriented x 3; no gross focal neurologic deficits Skin- warm & dry Results & Data Vital Signs (Past 12 Hours) Vital Signs Temp Pulse Resp BP BP Pulse Ox 11/25/18 16:48 70 11/25/18 15:14 37.3 C 104 H 20 149/81 H 92 11/25/18 11:09 36.7 C 53 L 19 141/76 H 99 11/25/18 07:55 36.6 C 63 18 130/79 100
[2018-11-26] MEDS: PIPERACILLIN/TAZOBACTAM 4.5 GM in DEXTROSE 5% 100 ML IV SCH ×3 (03:58→20:18)
[2018-11-26] MEDS: LEVOTHYROXINE SODIUM 125 MCG TABLET PO SCH (06:47)
[2018-11-26 06:58] LABS: Creatinine Clr Calc Pharmacy 65.2 ml/min; Est GFR (African American) 58.5; Est GFR (Non-African American) 50.4
[2018-11-26] MEDS: CARVEDILOL 12.5 MG TAB PO SCH ×2 (07:30→15:48)
[2018-11-26] MEDS: CYANOCOBALAMIN 500 MCG TABLET (VITAMIN B-12) PO SCH (07:38)
[2018-11-26] MEDS: predniSONE 5 MG TAB PO SCH (07:38)
[2018-11-26] MEDS: DIVALPROEX DELAY RELEASE 500 MG TAB PO SCH (07:39)
[2018-11-26] MEDS: AMLODIPINE BESYLATE 5 MG TAB PO SCH (07:39)
[2018-11-26] MEDS: DULOXETINE HCL 60 MG CAP PO SCH (07:39)
[2018-11-26] MEDS: CALCIUM 600MG + VIT D 400 IU TAB PO SCH (07:39)
[2018-11-26] MEDS: IMIPRAMINE HCL 25 MG TAB PO SCH ×3 (07:39→19:59)
[2018-11-26] MEDS: MULTIVITAMIN TAB PO SCH (07:40)
[2018-11-26] MEDS: risperiDONE 1 MG TABLET PO SCH ×2 (07:40→19:59)
[2018-11-26] MEDS: THIAMINE HCL 200 MG in SODIUM CHLORIDE 0.9% 50 ML IV SCH ×3 (09:06→19:58)
--- NOTE | 2018-11-26 13:37 | Gastrointestinal Consultation ---
Date of Consultation November 26, 2018 Assessment & Plan (1) Pancreatitis: 53 year old male with history of HTN, HLD, CKD-3, Vasculitis on chronic prednisone therapy, bipolar depression, chronic thrombocytopenia, RBBB admitted through the ED w/ acute pancreatitis, pnemonia on 11/20/18 - GI asked to evaluate given his history of pancreatitis. Acute, uncomplicated pancreatitis - Symptoms resolves - Continue low fat diet as tolerated - Likely secondary to sludge although medications also of concern (depakote- [id number]) - No ETOH - No prior history of pancreatitis - Would recommend OP general surgery evaluation for cholecystectomy given current admission for encephalopathy and pneumonia Will sign off. Thank you for allowing us to participate in the care of this patient. Please call with any acute changes, questions or concerns. Please see addendum below with additional recommendation from my supervising physician. Present on Admission?: Yes Supervising Physician Co-Signing Physician Notes Case discussed with JOEL Mena. Pancreatic encephalopathy is unlikely since this condition is seen in very severe acute pancreatitis. Currently no signs of ongoing pancreatitis. Elevated TSH may be clinically significant. Depakote can cause drug induced pancreatitis. History of Present Illness Reason for Consultation: pancreatitis Requesting Physician: Tyler Attending Physician: Stewart Scott MD History of Present Illness 53 year old male with history of HTN, HLD, CKD-3, Vasculitis on chronic prednisone therapy, bipolar depression, chronic thrombocytopenia, RBBB who presents to [facility] ED secondary to altered mental status and abdominal pain on 11/20/18 admitted with acute pancreatitis and pneumonia. GI was asked to evaluate for pancreatitis. Pt was seen and evaluated, chart reviewed. Sister at bedside who aids in history. Pt notes that today he feels okay - tired. Denies abd pain. No nausea, vomiting. He did tolerate breakfast, lunch without any pain, vomiting. He is unsure last time he moved his bowels, chart review suggests yesterday. No fever, chills, CP, SOB New meds: cymbalta 6 months ago ETOH: none ABD US: Gallbladder sludge. No cholelithiasis or biliary ductal dilatation. Trace perihepatic ascites. This is likely reactive in the setting of known pancreatitis. CT scan: Findings compatible with acute pancreatitis. No acute peripancreatic fluid collection identified.Trace pleural effusions with trace abdominopelvic ascites.Mild wall thickening of the duodenum, likely reactive.No bowel obstructi on, pneumatosis or pneumoperitoneum. Colonic diverticulosis. No renal or ureteral calculi or obstructive uropathy.Additional findings as above. Allergies Allergy/AdvReac Type Severity Reaction Status Date / Time aspirin Allergy Unknown Nothing Verified 04/18/18 14:45 with Aspirin. bacitracin Allergy Unknown Rash Verified 04/18/18 14:45 Cephalosporins Allergy Unknown Unknown Verified 04/18/18 14:45 doxycycline Allergy Unknown . Verified 04/18/18 14:45 furosemide Allergy Unknown Oral Verified 04/18/18 14:45 solution - rash levofloxacin Allergy Unknown Rash Verified 04/18/18 14:45 neomycin Allergy Unknown Rash Verified 04/18/18 14:45 polymyxin B Allergy Unknown Rash Verified 04/18/18 14:45 Sulfa (Sulfonamide Allergy Unknown Bactrim - Verified 04/18/18 14:45 Antibiotics) rash. moxifloxacin Allergy Unknown Unverified 04/18/18 14:45 sulfamethoxazole Allergy Unknown Unverified 04/18/18 14:58 [From Bactrim] trimethoprim [From Bactrim] Allergy Unknown Unverified 04/18/18 14:58 Home Medications Home Medications Medication Instructions Recorded Confirmed Type ascorbic acid (vitamin C) [Vitamin 1,000 mg PO DAILY 02/10/18 11/20/18 History C] divalproex 1,000 mg PO BID 02/10/18 11/20/18 History imipramine HCl 25 mg PO TID 02/10/18 11/20/18 History levothyroxine 125 mcg PO QAM 02/10/18 11/20/18 History carvedilol 12.5 mg PO BIDM 04/18/18 11/20/18 History cyanocobalamin (vitamin B-12) 1,000 mcg PO DAILY 04/18/18 11/20/18 History [Vitamin B-12] omega [id number]-fish oil [Fish Oil] 1,000 mg PO DAILY 04/18/18 11/20/18 History ranitidine HCl 150 mg PO HS 04/18/18 11/20/18 History risperidone 1 mg PO BID 04/18/18 11/20/18 History vitamin E 400 unit PO DAILY 04/18/18 11/20/18 History prednisone 5 mg PO DAILY 04/23/18 11/20/18 History calcium carbonate-vitamin D3 1 tab PO DAILY 11/20/18 11/20/18 History [Calcium 600 + D(3)] duloxetine [Cymbalta] 60 mg PO DAILY 11/20/18 11/20/18 History Patient History Medical History Hypothyroidism (Chronic) Hyperprolactinemia (Chronic) Vasculitis (Chronic) CKD (chronic kidney disease), stage III (Chronic) ALKA (iron deficiency anemia) (Chronic) Post-traumatic seizures (Chronic) Hypertension (Chronic) Chronic pain (Chronic) Bipolar disorder (Chronic) RBBB (Chronic) Hyperlipidemia (Chronic) JHOANA (obstructive sleep apnea) (Chronic) does not use cpap or bipap Reflux esophagitis (Chronic) Goiter (Chronic) 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) Hypertension (Inactive) Surgical History History of fasciotomy (Chronic) History of tracheostomy (Chronic) History of total right hip arthroplasty (Chronic) Family History Other Family history unobtainable due to patient's condition Social History Preferred Language: Estonian Communication Ability: Unable Associate Programmer Required: No Beliefs That Will Affect Care: None Current Living Situation: Family Current Living Situation Comment: Staying in shed at sister's house Other Information That Helps Us Care for You: No Feels Safe at Home: Declines to Answer Smoking Status: Never smoker Tobacco Type: cigarettes and smokeless tobacco Do You Dip or Chew Tobacco: No Second Hand Exposure: No Tobacco Cessation Education Requested by Patient: No Hx Alcohol Use: No Hx Substance Use: No Review of Systems Constitutional: no fever, no chills, no fatigue and no anorexia Respiratory: no cough, no dyspnea and no wheezing Cardiovascular: no chest pain, no radiating jaw, neck or arm pain and no dyspnea on exertion Gastrointestinal: no abdominal pain, no nausea, no vomiting, no blood in stools and no melena Physical Exam Constitutional: WD/WN, vitals as above + obese Neck: trachea midline Respiratory: normal respiratory effort; no respiratory distress Cardiovascular: Rate/Rhythm: regular rate and regular rhythm Gastrointestinal (Abdomen): Inspection/Auscultation: normal bowel sounds Percussion/Palpation: abdomen soft; abdomen nontender, no guarding, abdomen not rigid and no abdominal mass Skin: no rashes, warm and dry Results & Data Vital Signs (Past 12 Hours) Vital Signs Temp Pulse Resp BP Pulse Ox 11/26/18 11:37 37.1 C 56 L 12 155/87 H 96 11/26/18 11:28 37.1 C 56 L 18 155/106 H 96 11/26/18 07:30 54 L 11/26/18 07:13 36.8 C 59 L 18 149/82 H 95 11/26/18 03:35 36.7 C 64 17 138/73 97 Laboratory Results 11/26/18 11/26/18 Range/Units 06:08 05:58 Creatinine 1.53 H (0.6-1.4) mg/dl Est Cr Clr Drug Dosing 65.2 ml/min Est GFR ( Amer) 58.5 Est GFR (Non-Af Amer) 50.4 TSH 7.730 H (0.300-4.500) uIu/ml
--- NOTE | 2018-11-26 14:45 | Neurology Progress Note ---
Date of Service November 26, 2018 Assessment & Plan (1) Acute metabolic encephalopathy: 1. likely a combination of factors causing encephalopathy- possible pneumonia, pancreatitis, acute on chronic renal failure 2. MRI brain MS change- no stroke or lesion noted 3. pancreatitis would hydrate with IV fluids and current on pureed diet- GI recommendations for cholecystectomy as outpatient 4. seizure disorder but no recorded seizures x 10 years- post traumatic. 5. PT/OT for discharge needs 6. EEG no seizure focus 7. LP may help with diagnosis- unclear what his baseline was but sister states he is not at baseline- seems to be improving hold off for now 8. continue to treat pneumonitis with Zosyn per primary team 9. may need rehab prior to return home (2) Pancreatitis: as above (3) Acute renal failure superimposed on stage 3 chronic kidney disease: as above Supervising Physician Co-Signing Physician Notes I have seen and discussed above patient with Dr Daniel Horvath, neurology Tigre is improving today and can be aroused more readily and his conversation is more directed and responsive although he still has dysarthric speech, prefers to lie in bed with his eyes closed and needs pretty impressive stimulation interact with the examiner. Not having been said his current status is significantly improved from that of last Sunday when I first saw him and seems to be improving on a daily basis since yesterday Whether this reflects the effects of thiamine, tincture of time or perhaps an element of a superimposed functional disorder that is now resolving is something really cannot be readily established but there is no reason in my opinion to proceed with a lumbar puncture unless things would change and he would det eriorate wonder about getting psychiatry involved within the next day or 2 if he continues to demonstrate this extreme withdrawn behavior and some of the manipulative elements that we picked up today as per Serena Duran's note regarding his opinion about the television and the lack of quality programming being 1 of the causes of his lethargy and desire to sleep I would continue the thiamine we will await the thiamine level but this may be delayed and we will check him tomorrow clinically Daniel Horvath MD Subjective Tigre is a 53 yr old male with PMH of HTN, HLD, CKD-3, Vasculitis on chronic prednisone therapy, bipolar depression, post traumatic seizure disorder, chronic thrombocytopenia, RBBB who presents to [facility] ED secondary to altered mental status and abdominal pain. He was last known well yesterday morning his sister saw him in the morning and felt him to have increased confusion, "this is how he gets when he has a UTI," difficulty with ADLS, weakness and he was complaining of abdominal pain. She is aware he had a BM prior to arrival but is unsure if any diarrhea. He uses a hover round but is able to ambulate with walker to assist with ADLs. He is functional but disabled at baseline. He has a hx of narcotic overdose and currently does not take any narcotics. Has a medication lock box that dispenses his medications and sister assists with this. Sister denies any known seizures, last 10 years ago had grand mal secondary to trauma, none since. He is compliant with medications including depakote and risperdal f or bipolar according to his sister. He is sleep when entering the room wakes easily more understandable today. No family in room. denies CP, SOB abdominal pain, one sided weakness, numbness tingling, swallowing issues. Physical Exam Physical Exam: Gen: alert NAD obese lungs course breath sounds CV RRR neuro: asked where he is "hospital", why are you so sleeping "nothing to watch on TV", was your sister here today "yes", what did she think about you? "I don't know", do you walk at home? "sometimes" squeezes with hands bilaterally, biceps triceps 5/5, wiggles toes unable to lift off bed. touch intact to light and cool touch LE venous stasis Results & Data Vital Signs (Past 12 Hours) Vital Signs Temp Pulse Resp BP Pulse Ox 11/26/18 11:37 37.1 C 56 L 12 155/87 H 96 11/26/18 11:28 37.1 C 56 L 18 155/106 H 96 11/26/18 07:30 54 L 11/26/18 07:13 36.8 C 59 L 18 149/82 H 95 11/26/18 03:35 36.7 C 64 17 138/73 97
--- NOTE | 2018-11-26 18:01 | Hospitalist Progress Note ---
Date of Service November 26, 2018 Assessment & Plan (1) Acute metabolic encephalopathy: per Dr. Leyva's notes: Acute Metabolic Encephalopathy This is a 53 yr old M who has a significant pmh of HTN, HLD, CKD-3, Vasculitis on chronic prednisone therapy, bipolar depression, post traumatic seizure d isorder, chronic thrombocytopenia, RBBB who presents to [facility] ED secondary to altered mental status and abdominal pain x 1 day. Likely secondary to infection, UTI versus pneumonia and complicated by acute pancreatitis and acute renal failure Much improved today but remains pleasantly confused Responding to vocal commands and trying to communicate No apparent distress Appreciate neurology input and recommendation Speech evaluation done-advised thickened diet MRI of the head-no acute findings EEG-Mildly abnormal EEG during wakefulness consistent with a generalized nonspecific encephalopathy and revealing no evidence for potentially epileptogenic activity Clinically little bit better but the confusion persist If the condition remains unchanged or deteriorates further plan will be to do LP November 26, 2018 Patient improving again today possible pancreatiic encephalopathy per Neuro continue Thiamine management of pancreatitits and pneumonia noted below (2) Pancreatitis: Presented with abdominal pain and nausea CT scan did show:CT abdomen pelvis revealed acute pancreatitis, trace pleural effusion and trace abdominal pelvic ascites, gallbladder sludge, diverticulosis Patient bowel rest, IV fluids Lipase normalized Diet advanced, now with nectar thick pured diet Patient's CT abdomen showing gallbladder sludge GI consulted, recommend eventual cholecystectomy to prevent recurrence of pancreatitis (3) Pneumonia: Chest x-ray concerning for left basilar opacity and pleural effusion possibly consistent with pneumonia Urinalysis does have positive leukoesterase and nitrites, but negative bacteria -Per patient's sister he has history of UTI which presents as confusion Patient does not meet Sepsis Criteria Continue IV antibiotics with Zosyn, obtain mRSA nasal swab if negative will not cover for MRSA given concern for SHIELA Abd U/S Limited to RUQ to r/o gall bladder pathology as etiology of pancreatitis - currently unknown no ETOH or NSAID obtain NH3, blood cultures Urine culture has been negative Blood cultures have been negative We will continue current antibiotic clinic total of 5 days Symptomatically improved November 25, 2018 Continue Zosyn Wean off oxygen accordingly (4) Acute renal failure superimposed on stage 3 chronic kidney disease: Baseline creatinine 2.0 BUN/creatinine 44 and 2.60 today IVF ordered Follow BMP, repeat today 8 p.m. Daily and has been improving Renal function has been improving and creatinine is 1.6 today We monitor BMP November 25, 2018 crea improved (5) Electrolyte abnormality: Na 132, K 5.3 likely in setting of SHIELA; however keep adrenal insuff on differential am cortisol level-within normal limit resolved (6) Hypertension: Blood pressure stable On carvedilol will hold on p.o. (7) Hypothyroidism: Continue levothyroxine, convert IV (8) Bipolar disorder: Continue Depakote, and Risperidone (9) Thrombocytopenia: Platelet count stable at 61 Chronically runs between 60 and 100 Had peripheral smear done in admission 04/2018 which was unrevealing Platelet remains low at 52 and 43 on 11/22 Plt 50 6K (10) DVT prophylaxis: SCDS/TEDS Avoid chemical prophylaxis in setting of platelets 61, chronic thrombocytopenia Disposition PT OT ordered May need rehab or senior living facility upon discharge medically stable Case discussed with patient's Sister Natalie at the bedside in detail and at length All questions answered He is comfortable and agreeable and understanding with the plan of care Subjective Follow-up for encephalopathy, pancreatitis, pneumonia next Seen resting in bed, comfortable, more awake, alert Answer simple questions appropriately, speech still somewhat slurred Denies shortness of breath or cough Denies abdominal pain, nausea vomiting Tolerating diet well as per hourly sales staff No other symptoms Review of Systems Review of Systems: All systems reviewed & are unremarkable except as noted in HPI & below Physical Exam Physical Exam: General- oriented x 2, not in distress, speaks in sentences with no effort or accessory muscle use Eyes- anicteric Neck- no JVD Lungs-mild rhonchi in the left base, no wheezing, clear breath sounds on the right Heart- normal rate, regular rhythm; no murmurs Abdomen- normal bowel sounds, nondistended, soft, nontender Extremities- no pretibial edema, no calf tenderness Neuro- alert, oriented x 2; no gross focal neurologic deficits Skin- warm & dry Results & Data Vital Signs (Past 12 Hours) Vital Signs Temp Pulse Pulse Resp BP Pulse Ox 11/26/18 16:00 61 11/26/18 15:09 37.2 C 56 L 18 142/63 H 95 11/26/18 11:37 37.1 C 56 L 12 155/87 H 96 11/26/18 11:28 37.1 C 56 L 18 155/106 H 96 11/26/18 07:30 54 L 11/26/18 07:13 36.8 C 59 L 18 149/82 H 95 Laboratory Results Laboratory Results - last 24 hr 11/26/18 11/26/18 05:58 06:08 Creatinine 1.53 H Est Cr Clr Drug Dosing 65.2 Est GFR ( Amer) 58.5 Est GFR (Non-Af Amer) 50.4 TSH 7.730 H
[2018-11-27] MEDS: PIPERACILLIN/TAZOBACTAM 4.5 GM in DEXTROSE 5% 100 ML IV SCH ×3 (04:22→18:26)
[2018-11-27] MEDS: LEVOTHYROXINE SODIUM 125 MCG TABLET PO SCH (05:41)
[2018-11-27] MEDS: MULTIVITAMIN TAB PO SCH (07:46)
[2018-11-27] MEDS: CALCIUM 600MG + VIT D 400 IU TAB PO SCH (07:46)
[2018-11-27] MEDS: predniSONE 5 MG TAB PO SCH (07:46)
[2018-11-27] MEDS: CYANOCOBALAMIN 500 MCG TABLET (VITAMIN B-12) PO SCH (07:46)
[2018-11-27] MEDS: DULOXETINE HCL 60 MG CAP PO SCH (07:46)
[2018-11-27] MEDS: AMLODIPINE BESYLATE 5 MG TAB PO SCH (07:46)
[2018-11-27] MEDS: IMIPRAMINE HCL 25 MG TAB PO SCH ×3 (07:47→20:34)
[2018-11-27] MEDS: CARVEDILOL 12.5 MG TAB PO SCH ×2 (07:47→16:37)
[2018-11-27] MEDS: risperiDONE 1 MG TABLET PO SCH ×2 (07:47→20:34)
[2018-11-27] MEDS: DIVALPROEX DELAY RELEASE 500 MG TAB PO SCH ×2 (07:47→20:33)
[2018-11-27] MEDS: THIAMINE HCL 200 MG in SODIUM CHLORIDE 0.9% 50 ML IV SCH ×3 (09:21→20:39)
--- NOTE | 2018-11-27 14:27 | Neurology Progress Note ---
Date of Service November 27, 2018 Assessment & Plan (1) Acute metabolic encephalopathy: 1. likely a combination of factors causing encephalopathy- possible pneumonia, pancreatitis, acute on chronic renal failure 2. MRI brain MS change- no stroke or lesion noted 3. pancreatitis would hydrate with IV fluids and current on pureed diet- GI recommendations for cholecystectomy as outpatient 4. seizure disorder but no recorded seizures x 10 years- post traumatic. 5. PT/OT for discharge needs 6. EEG no seizure focus 7. LP may help with diagnosis- unclear what his baseline was but sister states he is not at baseline- seems to be improving but unclear what is causing change 8. continue to treat pneumonitis with Zosyn per primary team no off antibiotics 9. may need rehab prior to return home 10. psychiatry may be helpful to sort out behavior issues vs true encephalopathic behavior (2) Pancreatitis: as above (3) Acute renal failure superimposed on stage 3 chronic kidney disease: as above Supervising Physician Co-Signing Physician Notes I have seen and discussed above patient with Dr Daniel Horvath, neurology Tigre significantly better today. I did not need to arouse him to have a conversation which was difficult because of his dysarthric but he was much more alert eye movements were normal he followed commands answer my questions and at this point I suspect this is a resolving toxic/metabolic encephalopathy possibly resolving pancreatic encephalopathy but possibly multifactorial uncolored of course was underlying bipolarity and psychiatric issues. At this point the thiamine level is still pending him probably will be comes back on the chart and if normal then would not maintain thiamine replacement but if it were as low and I would put him on thiamine replacement for at least another month and then discontinue it. Until next week but I would continue the high-dose thiamine until level comes back to the chart and if it is normal then I would stop the replacement but if it were low I would maintain 50 mg a day for another month then have his primary care physician follow-up on an as-needed basis. It is possible he has an unusual diet at home and he may have been marginally thiamine deficient when his entire syndrome emerged I see no need to pursue a lumbar puncture at this time I would continue the Depakote and his current dose or at least the dose he was on when he noted as the level was therapeutic at that time Neurology is going to sign off at this time unless things would change and and that instance we would certainly be happy to reevaluate him Daniel Horvath MD Xiang Landeros is a 53 yr old male with PMH of HTN, HLD, CKD-3, Vasculitis on chronic prednisone therapy, bipolar depression, post traumatic seizure disorder, chronic thrombocytopenia, RBBB who presents to [facility] ED secondary to altered mental status and abdominal pain. He was last known well yesterday morning his sister saw him in the morning and felt him to have increased confusion, "this is how he gets when he has a UTI," difficulty with ADLS, weakness and he was complaining of abdominal pain. She is aware he had a BM prior to arrival but is unsure if any diarrhea. He uses a hover round but is able to ambulate with walker to assist with ADLs. He is functional but disabled at baseline. He has a hx of narcotic overdose and currently does not take any narcotics. Has a medication lock box that dispenses his medications and sister assists with this. Sister denies any known seizures, last 10 years ago had grand mal secondary to trauma, none since. He is compliant with medications including depakote and risperdal for bipolar according to his sister. He is sleep when entering the room wakes easily more understandable today. No family in room. denies CP, SOB abdominal pain, one sided weakness, numbness tingling, swallowing issues. Physical Exam Physical Exam: Gen: alert with voice lungs: course breath sounds CV RRR squeezes with hands, biceps triceps 4+/5, unable to lift arms past chest wiggles toes and repositions self in bed knows he is in the hospital, asks "what time is it?" "then is it in the morning?" "nothing on TV" is eating lunch with assistance nectar thickened liquids no issues with swallowing according to nursing Results & Data Vital Signs (Past 12 Hours) Vital Signs Temp Pulse Resp BP Pulse Ox 11/27/18 11:04 36.7 C 61 18 167/82 H 97 11/27/18 07:20 37.2 C 59 L 20 155/89 H 96 11/27/18 04:16 37.6 C H 50 L 20 167/75 H 93 Laboratory Results no new labs Diagnostic Findings no new imaging
[2018-11-27] MEDS ORDERED: AMLODIPINE BESYLATE 5 MG TAB PO ONE (16:14)
--- NOTE | 2018-11-27 18:08 | Hospitalist Progress Note ---
Date of Service November 27, 2018 Assessment & Plan (1) Acute metabolic encephalopathy: per Dr. Leyva's notes: Acute Metabolic Encephalopathy This is a 53 yr old M who has a significant pmh of HTN, HLD, CKD-3, Vasculitis on chronic prednisone therapy, bipolar depression, post traumatic seizure d isorder, chronic thrombocytopenia, RBBB who presents to [facility] secondary to altered mental status and abdominal pain x 1 day. Likely secondary to infection, UTI versus pneumonia and complicated by acute pancreatitis and acute renal failure Much improved today but remains pleasantly confused Responding to vocal commands and trying to communicate No apparent distress Appreciate neurology input and recommendation Speech evaluation done-advised thickened diet MRI of the head-no acute findings EEG-Mildly abnormal EEG during wakefulness consistent with a generalized nonspecific encephalopathy and revealing no evidence for potentially epileptogenic activity Clinically little bit better but the confusion persist If the condition remains unchanged or deteriorates further plan will be to do LP November 27, 2018 Patient's mental status gradually improving possible pancreatiic encephalopathy per Neuro continue Thiamine management of pancreatitis and pneumonia noted below (2) Pancreatitis: Presented with abdominal pain and nausea CT scan did show:CT abdomen pelvis revealed acute pancreatitis, trace pleural effusion and trace abdominal pelvic ascites, gallbladder sludge, diverticulosis Patient bowel rest, IV fluids Lipase normalized Diet advanced, now with nectar thick pured diet Patient's CT abdomen showing gallbladder sludge GI consulted, recommend eventual cholecystectomy to prevent recurrence of pancreatitis (3) Pneumonia: Chest x-ray concerning for left basilar opacity and pleural effusion possi patricia consistent with pneumonia Urinalysis does have positive leukoesterase and nitrites, but negative bacteria -Per patient's sister he has history of UTI which presents as confusion Patient does not meet Sepsis Criteria Continue IV antibiotics with Zosyn, obtain mRSA nasal swab if negative will not cover for MRSA given concern for SHIELA Abd U/S Limited to RUQ to r/o gall bladder pathology as etiology of pancreatitis - currently unknown no ETOH or NSAID obtain NH3, blood cultures Urine culture has been negative Blood cultures have been negative We will continue current antibiotic clinic total of 5 days Symptomatically improved November 25, 2018 Completed 7 days of Zosyn IV Remains afebrile, respiratory status stable Wean off oxygen accordingly (4) Acute renal failure superimposed on stage 3 chronic kidney disease: Baseline creatinine 2.0 BUN/creatinine 44 and 2.60 today IVF ordered Follow BMP, repeat today 8 p.m. Daily and has been improving Renal function has been improving and creatinine is 1.6 today crea improved (5) Electrolyte abnormality: Na 132, K 5.3 likely in setting of SHIELA; however keep adrenal insuff on differential am cortisol level-within normal limit resolved (6) Hypertension: Blood pressure elevated Additional amlodipine 5 mg p.o. daily ordered On carvedilol (7) Hypothyroidism: Continue levothyroxine (8) Bipolar disorder: Continue Depakote, and Risperidone (9) Thrombocytopenia: Platelet count stable at 61 Chronically runs between 60 and 100 Had peripheral smear done in admission 04/2018 which was unrevealing Platelet remains low at 52 and 43 on 11/22 Plt 56K No signs of active bleeding (10) DVT prophylaxis: SCDS/TEDS Avoid chemical prophylaxis in setting of platelets 61, chronic thrombocytopenia Disposition PT OT ordered May need rehab or [facility] facility upon discharge medically stable Subjective Follow-up for encephalopathy, pancreatitis,, acute renal failure, pneumonia Seen resting in bed, comfortable Oriented x2, answers simple questions appropriately, dysarthria improved denies of cough, shortness of breath, sputum production Denies abdominal pain, nausea vomiting Per staffing coordinator, patient more alert today Review of Systems Review of Systems: All systems reviewed & are unremarkable except as noted in HPI & below Physical Exam Physical Exam: General- oriented x 2, not in distress, speaks in sentences with no effort or accessory muscle use Eyes- anicteric Neck- no JVD Lungs- clear breath sounds bilaterally, no crackles no wheezing Heart- normal rate, regular rhythm; no murmurs Abdomen- normal bowel sounds, nondistended, soft, nontender Extremities- no pretibial edema, no calf tenderness Neuro- alert, oriented x 2; no gross focal neurologic deficits Skin- warm & dry Results & Data Vital Signs (Past 12 Hours) Vital Signs Temp Pulse Pulse Resp BP Pulse Ox 11/27/18 16:00 71 11/27/18 15:39 36.7 C 80 18 173/79 H 92 11/27/18 11:04 36.7 C 61 18 167/82 H 97 11/27/18 07:20 37.2 C 59 L 20 155/89 H 96
[2018-11-28] MEDS: LEVOTHYROXINE SODIUM 125 MCG TABLET PO SCH (06:03)
[2018-11-28] MEDS: predniSONE 5 MG TAB PO SCH (08:45)
[2018-11-28] MEDS: MULTIVITAMIN TAB PO SCH (08:45)
[2018-11-28] MEDS: AMLODIPINE BESYLATE 5 MG TAB PO SCH (08:45)
[2018-11-28] MEDS: DULOXETINE HCL 60 MG CAP PO SCH (08:45)
[2018-11-28] MEDS: IMIPRAMINE HCL 25 MG TAB PO SCH ×5 (08:46→22:38)
[2018-11-28] MEDS: CALCIUM 600MG + VIT D 400 IU TAB PO SCH (08:46)
[2018-11-28] MEDS: CARVEDILOL 12.5 MG TAB PO SCH ×2 (08:46→18:36)
[2018-11-28] MEDS: DIVALPROEX DELAY RELEASE 500 MG TAB PO SCH ×4 (08:46→22:38)
[2018-11-28] MEDS: risperiDONE 1 MG TABLET PO SCH ×4 (08:46→22:39)
[2018-11-28] MEDS: THIAMINE HCL 200 MG in SODIUM CHLORIDE 0.9% 50 ML IV SCH ×3 (08:47→20:33)
[2018-11-28] MEDS: CYANOCOBALAMIN 500 MCG TABLET (VITAMIN B-12) PO SCH (08:48)
[2018-11-28 10:45] LABS: Hematocrit (blood only) 30.7 % (42-52); Hemoglobin 9.7 g/dL (14.0-18.0); Mean Corpuscular Hgb Conc 31.6 g/dL (32-36); Mean Corpuscular Volume 95.6 fL (80-100); RDW Coefficient of Variation 17.7 % (11.5-14.5); RDW Standard Deviation 62.7 fL (36.4-46.3); Red Blood Count 3.21 M/uL (4.7-6.1); White Blood Count 4.74 K/uL (4.8-10.8)
[2018-11-28] MEDS ORDERED: HYDROCORTISONE SOD SUCCINATE 100 MG/2 ML VIAL IV STA (10:53)
[2018-11-28] MEDS ORDERED: HYDROCORTISONE SOD 50 MG in SYRINGE 0 ML IV STA (10:58)
[2018-11-28 11:09] LABS: Mean Platelet Volume 10.1 fL (7.4-10.4); Platelet Count 77 K/uL (130-400)
[2018-11-28 11:10] LABS: Basophils # (auto) 0.01 K/uL (0-0.2); Basophils % (auto) 0.2 %; Eosinophils # (auto) 0.14 K/uL (0-0.5); Immature Granulocytes % (auto) 4.2 %; Lymphocytes # (auto) 0.88 K/uL (1.2-3.4); Lymphocytes % (auto) 18.6 %; Monocytes # (auto) 0.34 K/uL (0.11-0.59); Monocytes % (auto) 7.2 %; Neutrophils # (auto) 3.17 K/uL (1.4-6.5); Neutrophils % (auto) 66.8 %
[2018-11-28 11:16] LABS: BUN Creatinine Ratio 19.6 (10-20); Calcium 10.6 mg/dl (8.5-10.1); Creatinine Clr Calc Pharmacy 52.9 ml/min; Est GFR (African American) 47.1; Est GFR (Non-African American) 40.6; Potassium 4.6 mmol/L (3.5-5.1)
[2018-11-28] MEDS ORDERED: INSULIN ASPART 100 UNITS/ML 3 ML PEN SC ONE ×2 (11:39→15:15)
[2018-11-28] MEDS ORDERED: PHARMACY GLYCEMIC MGMT CONSULT SCH (11:42)
[2018-11-28 11:44] LABS: Beta-Hydroxybutyrate 0.68 mg/dl (0.2-2.81); T4 Free Thyroxine 1.39 ng/dl (0.8-1.6)
[2018-11-28] MEDS ORDERED: INSULIN GLARGINE SOLOSTAR 100 UNITS/ML 3 ML PEN SC ONE (11:45)
--- NOTE | 2018-11-28 12:04 | Pharmacy Report ---
Glycemic Control Consultation - Date of Service November 28, 2018 - Scope Scope: Glycemic Pharmacist consulted by Dr Scott on 11/28/18 for glycemic control and to write orders per [facility] inpatient glycemic control protocol - Objective Weight: 116.1 kg Accuchecks BSG (last 24hrs): 11/28/18 10:20 Glucose 313 H* Laboratory Data (last 24hrs): 11/28/18 10:20 Potassium 4.6 Carbon Dioxide 31 Anion Gap 3.0 Creatinine 1.83 H Est Cr Clr Drug Dosing 52.9 Beta-Hydroxybutyric Acd 0.68 Laboratory Tests 11/28/18 10:20 TSH 10.400 H Free T4 1.39 - Recent Pertinent Medications Outpatient Anti-diabetic Regimen: * None * A1c ordered Risk Factors for Insulin Resistance: * Steroids: Hydrocortisone 50mg IV x1 now then 25mg IV Q8H * Infection: Zosyn 7 days completed, UTI vs pneumonia * Diet: PO - Assessment & Plan Assessment & Plan: ASSESSMENT: * 53 year old male admitted with metabolic encephalopathy, acute pancreatitis and acute renal failure, both resolved, but patient remains encephalopathic, therefore starting IV steroids. Hypothyroid, repeating labs, Dr Scott aware. * Patient hyperglycemic, BSG 313mg/dl - will begin basal bolus in insulin naive patient and titrate to goal blood sugar. PLAN FOR INPATIENT GLYCEMIC CONTROL: * Basal insulin * Lantus 20 units SQ x 1 dose now then at HS tonight * 0 units for BSG < 160mg/dl * 10 units for BSG 160-220mg/dl * 20 units for BSG > 220mg/dl * Bolus insulin * NovoLog per scale ACHS or Q6hrs while NPO * Goal Range: Low 110 mg/dL - High 140 mg/dL * Correction Factor: 20 mg/dL/unit * Nutritional / Prandial insulin per carb ratio of 1 unit per 7 grams CHO consumed * Please note that the plan above was derived based on current level of insulin resistance and hospital stress. These recommendations are appropriate for inpatient admission only. Plan of care upon discharge will need to be reassessed to avoid potential outpatient hypo/hyperglycemia. Thank you.
[2018-11-28 12:08] LABS: Estimated Average Glucose 123 mg/dl; Hemoglobin A1C 5.9 % (4.5-5.6)
[2018-11-28] MEDS ORDERED: INSULIN HUMAN REGULAR PER UNIT 6 UNITS in SYRINGE 5.94 ML IV ONE (15:15)
--- NOTE | 2018-11-28 16:24 | Hospitalist Progress Note ---
Date of Service November 28, 2018 Assessment & Plan (1) Acute metabolic encephalopathy: per Dr. Leyva's notes: Acute Metabolic Encephalopathy This is a 53 yr old M who has a significant pmh of HTN, HLD, CKD-3, Vasculitis on chronic prednisone therapy, bipolar depression, post traumatic seizure d isorder, chronic thrombocytopenia, RBBB who presents to [facility] ED secondary to altered mental status and abdominal pain x 1 day. Likely secondary to infection, UTI versus pneumonia and complicated by acute pancreatitis and acute renal failure Much improved today but remains pleasantly confused Responding to vocal commands and trying to communicate No apparent distress Appreciate neurology input and recommendation Speech evaluation done-advised thickened diet MRI of the head-no acute findings EEG-Mildly abnormal EEG during wakefulness consistent with a generalized nonspecific encephalopathy and revealing no evidence for potentially epileptogenic activity Clinically little bit better but the confusion persist If the condition remains unchanged or deteriorates further plan will be to do LP November 27, 2018 Patient's mental status about the same as yesterday 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 Start trial of hydrocortisone 50 mg IV 1 dose, and 25 mg every 8 hours Monitor Subclinical hypothyroidism contributing? TSH 10.4, free T4 1.39 Increase levothyroxine from 125 to 150 mcg daily Monitor response (2) Pancreatitis: Presented with abdominal pain and nausea CT scan did show:CT abdomen pelvis revealed acute pancreatitis, trace pleural effusion and trace abdominal pelvic ascites, gallbladder sludge, diverticulosis Patient bowel rest, IV fluids Lipase normalized Diet advanced, now with nectar thick pured diet Patient's CT abdomen showing gallbladder sludge GI consulted, recommend eventual cholecystectomy to prevent recurrence of pancreatitis (3) Pneumonia: Chest x-ray concerning for left basilar opacity and pleural effusion possibly consistent with pneumonia Urinalysis does have positive leukoesterase and nitrites, but negative bacteria -Per patient's sister he has history of UTI which presents as confusion Patient does not meet Sepsis Criteria Continue IV antibiotics with Zosyn, obtain mRSA nasal swab if negative will not cover for MRSA given concern for SHIELA Abd U/S Limited to RUQ to r/o gall bladder pathology as etiology of pancreatitis - currently unknown no ETOH or NSAID obtain NH3, blood cultures Urine culture has been negative Blood cultures have been negative We will continue current antibiotic clinic total of 5 days Symptomatically improved Completed 7 days of Zosyn IV Remains afebrile, respiratory status stable Wean off oxygen accordingly (4) Hyperglycemia: Blood glucose running in the 300s A1c 5.9 Possibly from pancreatitis? Glycemic control by pharmacist consulted Insulin Lantus and sliding scale aspart started (5) Acute renal failure superimposed on stage 3 chronic kidney disease: crea 1.83 Resume IV fluids (6) Electrolyte abnormality: Na 132, K 5.3 likely in setting of SHIELA; however keep adrenal insuff on differential am cortisol level-within normal limit resolved (7) Hypertension: Blood pressure elevated increase Klonopin to 10 mg p.o. daily On carvedilol (8) Hypothyroidism: Continue levothyroxine (9) Bipolar disorder: Continue Depakote, and Risperidone (10) Thrombocytopenia: Platelet count stable at 61 Chronically runs between 60 and 100 Had peripheral smear done in admission 04/2018 which was unrevealing Platelet remains low at 52 and 43 on 11/22 Plt 56K No signs of active bleeding (11) DVT prophylaxis: SCDS/TEDS Avoid chemical prophylaxis in setting of platelets 61, chronic thrombocytopenia Disposition PT OT ordered May need rehab or detention facility upon discharge medically stable Subjective Follow-up for acute pancreatitis, pneumonia, encephalopathy Seen sitting up in bed, awake alert, oriented x2, still somewhat confused Follow simple commands Denies abdominal pain, nausea vomiting Shortness of breath, cough No other symptoms noted Review of Systems Review of Systems: All systems reviewed & are unremarkable except as noted in HPI & below Physical Exam Physical Exam: General- oriented x 23, not in distress, speaks in sentences with no effort or accessory muscle use Eyes- anicteric Neck- no JVD Lungs- clear BS, no crackles, no wheezing bilaterally Heart- normal rate, regular rhythm; no murmurs Abdomen- normal bowel sounds, nondistended, soft, nontender Extremities- no pretibial edema, no calf tenderness Neuro- alert, oriented x 2; no gross focal neurologic deficits Skin- warm & dry Results & Data Vital Signs (Past 12 Hours) Vital Signs Temp Pulse Resp BP Pulse Ox 11/28/18 15:14 36.6 C 58 L 18 151/84 H 95 11/28/18 11:13 37.0 C 60 18 155/88 H 97 11/28/18 07:13 36.9 C 68 28 H 156/91 H 99 11/28/18 04:40 36.9 C 70 21 151/91 H 98 Laboratory Results Laboratory Results - last 24 hr 11/28/18 11/28/18 11/28/18 10:20 10:20 10:20 WBC 4.74 L RBC 3.21 L Hgb 9.7 L Hct 30.7 L MCV 95.6 MCH 30.2 MCHC 31.6 L RDW Std Deviation 62.7 H RDW Coeff of Debra 17.7 H Plt Count 77 L MPV 10.1 Immature Gran % (Auto) 4.2 Neut % (Auto) 66.8 Lymph % (Auto) 18.6 [place] % (Auto) 7.2 Eos % (Auto) 3.0 Baso % (Auto) 0.2 Immature Gran # (Auto) 0.20 H Neut # (Auto) 3.17 Lymph # (Auto) 0.88 L [place] # (Auto) 0.34 Eos # (Auto) 0.14 Baso # (Auto) 0.01 Sodium 140 Potassium 4.6 Chloride 106 Carbon Dioxide 31 Anion Gap 3.0 BUN 36 H Creatinine 1.83 H Est Cr Clr Drug Dosing 52.9 Est GFR ( Amer) 47.1 Est GFR (Non-Af Amer) 40.6 BUN/Creatinine Ratio 19.6 Glucose 313 H* POC Glucose Estimat Average Glucose Hemoglobin A1c Calcium 10.6 H Beta-Hydroxybutyric Acd 0.68 TSH 10.400 H Free T4 1.39 Valproic Acid 69 11/28/18 11/28/18 11/28/18 10:20 11:19 15:07 WBC RBC Hgb Hct MCV MCH MCHC RDW Std Deviation RDW Coeff of Debra Plt Count MPV Immature Gran % (Auto) Neut % (Auto) Lymph % (Auto) [place] % (Auto) Eos % (Auto) Baso % (Auto) Immature Gran # (Auto) Neut # (Auto) Lymph # (Auto) [place] # (Auto) Eos # (Auto) Baso # (Auto) Sodium Potassium Chloride Carbon Dioxide Anion Gap BUN Creatinine Est Cr Clr Drug Dosing Est GFR ( Amer) Est GFR (Non-Af Amer) BUN/Creatinine Ratio Glucose POC Glucose 380 H* 322 H* Estimat Average Glucose 123 Hemoglobin A1c 5.9 H Calcium Beta-Hydroxybutyric Acd TSH Free T4 Valproic Acid
[2018-11-28] MEDS ORDERED: AMLODIPINE BESYLATE 5 MG TAB PO ONE (16:45)
[2018-11-28] MEDS: INSULIN ASPART 100 UNITS/ML 3 ML PEN SC SCH ×2 (18:36→20:30)
[2018-11-28] MEDS: SODIUM CHLORIDE 0.9% 1000ML 1,000 ML IV SCH (18:36)
[2018-11-28] MEDS: HYDROCORTISONE SOD 25 MG in SYRINGE 0 ML IV SCH (18:39)
[2018-11-28] MEDS ORDERED: INSULIN GLARGINE SOLOSTAR 100 UNITS/ML 3 ML PEN SC SCH (21:00)
[2018-11-29] MEDS ORDERED: INSULIN ASPART 100 UNITS/ML 3 ML PEN SC ONE
[2018-11-29] MEDS: HYDROCORTISONE SOD 25 MG in SYRINGE 0 ML IV SCH ×3 (02:10→19:21)
[2018-11-29] MEDS: LEVOTHYROXINE SODIUM 150 MCG TABLET PO SCH (05:30)
[2018-11-29 08:37] LABS: Albumin Level 1.7 gm/dl (3.4-5.0); Bilirubin Direct 0.2 mg/dl (0-0.2); Bilirubin,Total 0.6 mg/dl (0.2-1); Total Protein 6.4 gm/dl (6.4-8.2)
[2018-11-29] MEDS: AMLODIPINE BESYLATE 5 MG TAB PO SCH (09:13)
[2018-11-29] MEDS: IMIPRAMINE HCL 25 MG TAB PO SCH ×3 (09:14→21:03)
[2018-11-29] MEDS: CALCIUM 600MG + VIT D 400 IU TAB PO SCH (09:14)
[2018-11-29] MEDS: risperiDONE 1 MG TABLET PO SCH ×2 (09:15→21:02)
[2018-11-29] MEDS: MULTIVITAMIN TAB PO SCH (09:15)
[2018-11-29] MEDS: CYANOCOBALAMIN 500 MCG TABLET (VITAMIN B-12) PO SCH (09:15)
[2018-11-29] MEDS: DULOXETINE HCL 60 MG CAP PO SCH (09:15)
[2018-11-29] MEDS: DIVALPROEX DELAY RELEASE 500 MG TAB PO SCH ×2 (09:16→21:01)
[2018-11-29] MEDS: CARVEDILOL 12.5 MG TAB PO SCH ×2 (09:16→18:04)
[2018-11-29] MEDS: THIAMINE HCL 200 MG in SODIUM CHLORIDE 0.9% 50 ML IV SCH ×3 (09:19→21:15)
[2018-11-29] MEDS: SODIUM CHLORIDE 0.9% 1000ML 1,000 ML IV SCH (09:19)
[2018-11-29] MEDS: INSULIN ASPART 100 UNITS/ML 3 ML PEN SC SCH ×4 (10:45→21:10)
[2018-11-29] MEDS ORDERED: MAGNESIUM HYDROXIDE SUSP 30 ML UDC PO PRN (13:55)
--- NOTE | 2018-11-29 15:11 | Pharmacy Report ---
Pharmacy Glycemic Short Note 2 - Date of Service November 29, 2018 - Glycemic Short BSG Results (Last 24 hours): 11/28/18 11/28/18 11/28/18 15:07 16:19 18:03 POC Glucose 322 H* 186 H 125 H 11/28/18 11/28/18 11/29/18 20:05 23:58 07:49 POC Glucose 102 H 115 H 154 H OUTPATIENT ANTIDIABETIC REGIMEN: None A1c 5.9% on 11/28/18 ASSESSMENT: 11/29 * BSGs improved significantly over the past 24 hours * He remains on hydrocortisone 25 mg q8h * Patient rec'd 41 units of insulin yesterday (20 of this was basal) * Fasting BSG = 154 mg/dL; will continue same dose but provide a scaled dose in case BSG increases * Novolog parameters fairly aggressive so will continue same for now 11/28 * 53 year old male admitted with metabolic encephalopathy, acute pancreatitis and acute renal failure, both resolved, but patient remains encephalopathic, therefore starting IV steroids. Hypothyroid, repeating labs, Dr Scott aware. * Patient hyperglycemic, BSG 313mg/dl - will begin basal bolus in insulin naive patient and titrate to goal blood sugar. PLAN FOR INPATIENT GLYCEMIC CONTROL: * Basal insulin - increase scale to give higher dose if BSG high * Lantus once daily w/ dinner * 20 units for BSG < 160 * 25 units for BSG 160 or above * Bolus insulin - no change * NovoLog per scale ACHS or Q6hrs while NPO * Goal Range: Low 110 mg/dL - High 140 mg/dL * Correction Factor: 15 mg/dL/unit * Nutritional / Prandial insulin per carb ratio of 1 unit per 5 grams CHO consumed PLAN FOR DISCHARGE: * A1c = 5.9%; this is in the pre-diabetic range * Consider lifestyle modifications and/or addition of metformin to slow progression to diabetes
[2018-11-29] MEDS: INSULIN GLARGINE SOLOSTAR 100 UNITS/ML 3 ML PEN SC SCH (17:56)
--- NOTE | 2018-11-29 22:26 | Hospitalist Progress Note ---
Date of Service November 29, 2018 Assessment & Plan (1) Acute metabolic encephalopathy: per Dr. Leyva's notes: Acute Metabolic Encephalopathy This is a 53 yr old M who has a significant pmh of HTN, HLD, CKD-3, Vasculitis on chronic prednisone therapy, bipolar depression, post traumatic seizure d isorder, chronic thrombocytopenia, RBBB who presents to [facility] ED secondary to altered mental status and abdominal pain x 1 day. Likely secondary to infection, UTI versus pneumonia and complicated by acute pancreatitis and acute renal failure Much improved today but remains pleasantly confused Responding to vocal commands and trying to communicate No apparent distress Appreciate neurology input and recommendation Speech evaluation done-advised thickened diet MRI of the head-no acute findings EEG-Mildly abnormal EEG during wakefulness consistent with a generalized nonspecific encephalopathy and revealing no evidence for potentially epileptogenic activity Clinically little bit better but the confusion persist If the condition remains unchanged or deteriorates further plan will be to do LP November 29, 2018 Patient's mental status much improved today, although still has some confusion 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 Started trial of hydrocortisone 50 mg IV 1 dose, and 25 mg every 8 hours seems to showed much improvement today continue hydrocortisone, taper down if with continued improvement Monitor Subclinical hypothyroidism contributing? TSH 10.4, free T4 1.39 Increase levothyroxine from 125 to 150 mcg daily Monitor response (2) Pancreatitis: Presented with abdominal pain and nausea CT scan did show:CT abdomen pelvis revealed acute pancreatitis, trace pleural effusion and trace abdominal pelvic ascites, gallbladder sludge, diverticulosis Patient bowel rest, IV fluids Lipase normalized Diet advanced, now with nectar thick pured diet Patient's CT abdomen showing gallbladder sludge GI consulted, recommend eventual cholecystectomy to prevent recurrence of pancreatitis (3) Pneumonia: Chest x-ray concerning for left basilar opacity and pleural effusion possibly consistent with pneumonia Urinalysis does have positive leukoesterase and nitrites, but negative bacteria -Per patient's sister he has history of UTI which presents as confusion Patient does not meet Sepsis Criteria Continue IV antibiotics with Zosyn, obtain mRSA nasal swab if negative will not cover for MRSA given concern for SHIELA Abd U/S Limited to RUQ to r/o gall bladder pathology as etiology of pancreatitis - currently unknown no ETOH or NSAID obtain NH3, blood cultures Urine culture has been negative Blood cultures have been negative We will continue current antibiotic clinic total of 5 days Symptomatically improved Completed 7 days of Zosyn IV Remains afebrile, respiratory status stable Wean off oxygen accordingly (4) Hyperglycemia: Blood glucose running in the 300s A1c 5.9 Possibly from pancreatitis? Glycemic control by pharmacist consulted Insulin Lantus and sliding scale aspart started BSGs improving, monitor (5) Acute renal failure superimposed on stage 3 chronic kidney disease: crea 1.83 Resumed IV fluids (6) Electrolyte abnormality: Na 132, K 5.3 likely in setting of SHIELA; however keep adrenal insuff on differential am cortisol level-within normal limit resolved (7) Hypertension: Blood pressure elevated increase Amlodipine to 10 mg p.o. daily On carvedilol (8) Hypothyroidism: Continue levothyroxine (9) Bipolar disorder: Continue Depakote, and Risperidone (10) Thrombocytopenia: Platelet count stable at 61 Chronically runs between 60 and 100 Had peripheral smear done in admission 04/2018 which was unrevealing Platelet remains low at 52 and 43 on 11/22 Plt 56K No signs of active bleeding (11) DVT prophylaxis: SCDS/TEDS Avoid chemical prophylaxis in setting of platelets 61, chronic thrombocytopenia Disposition PT OT ordered May need rehab or [facility] facility upon discharge medically stable Subjective ff up for encephalopathy, pancreatitis, pneumonia sitting up, having lunch, supervised by RN FLIGHT per staff, alert, awake, conversant whole morning more conversant, oriented to person and place, answers simple questions appropriately, still has some confusion denies SOB, abdominal pain no other symptoms Review of Systems Review of Systems: All systems reviewed & are unremarkable except as noted in HPI & below Physical Exam Physical Exam: General- oriented x 2, not in distress, speaks in sentences with no effort or accessory muscle use Eyes- anicteric Neck- no JVD Lungs- clear BS BL no rales/wheezes Heart- normal rate, regular rhythm; no murmurs Abdomen- normal bowel sounds, nondistended, soft, nontender Extremities- no pretibial edema, no calf tenderness Neuro- alert, oriented x 2; no gross focal neurologic deficits Skin- warm & dry Results & Data Vital Signs (Past 12 Hours) Vital Signs Temp Pulse Pulse Resp BP BP Pulse Ox 11/29/18 19:19 36.7 C 51 L 14 145/80 H 100 11/29/18 16:00 52 L 11/29/18 15:26 36.5 C 52 L 20 153/81 H 96 07/19/19 12:16 36.4 C L 48 L 16 145/74 H 94
[2018-11-30] MEDS: SODIUM CHLORIDE 0.9% 1000ML 1,000 ML IV SCH ×2 (01:00→17:29)
[2018-11-30] MEDS: HYDROCORTISONE SOD 25 MG in SYRINGE 0 ML IV SCH ×3 (03:50→22:55)
[2018-11-30] MEDS: LEVOTHYROXINE SODIUM 150 MCG TABLET PO SCH (05:44)
[2018-11-30 07:21] LABS: Hematocrit (blood only) 29.6 % (42-52); Hemoglobin 9.6 g/dL (14.0-18.0); Mean Corpuscular Hgb Conc 32.4 g/dL (32-36); Mean Corpuscular Volume 95.8 fL (80-100); Mean Platelet Volume 9.6 fL (7.4-10.4); Platelet Count 119 K/uL (130-400); RDW Coefficient of Variation 17.1 % (11.5-14.5); Red Blood Count 3.09 M/uL (4.7-6.1); White Blood Count 7.12 K/uL (4.8-10.8)
[2018-11-30 07:45] LABS: BUN Creatinine Ratio 28.8 (10-20); Calcium 10.2 mg/dl (8.5-10.1); Creatinine Clr Calc Pharmacy 70.5 ml/min; Est GFR (African American) 66.2; Est GFR (Non-African American) 57.1
[2018-11-30] MEDS: INSULIN ASPART 100 UNITS/ML 3 ML PEN SC SCH ×4 (08:16→22:58)
[2018-11-30] MEDS: AMLODIPINE BESYLATE 5 MG TAB PO SCH (08:17)
[2018-11-30] MEDS: MULTIVITAMIN TAB PO SCH (08:17)
[2018-11-30] MEDS: risperiDONE 1 MG TABLET PO SCH ×2 (08:17→21:49)
[2018-11-30] MEDS: CARVEDILOL 12.5 MG TAB PO SCH ×2 (08:17→17:28)
[2018-11-30] MEDS: DULOXETINE HCL 60 MG CAP PO SCH (08:17)
[2018-11-30] MEDS: CYANOCOBALAMIN 500 MCG TABLET (VITAMIN B-12) PO SCH (08:17)
[2018-11-30] MEDS: DIVALPROEX DELAY RELEASE 500 MG TAB PO SCH ×2 (08:17→21:50)
[2018-11-30] MEDS: CALCIUM 600MG + VIT D 400 IU TAB PO SCH (08:17)
[2018-11-30] MEDS: IMIPRAMINE HCL 25 MG TAB PO SCH ×3 (08:18→21:50)
[2018-11-30] MEDS: THIAMINE HCL 200 MG in SODIUM CHLORIDE 0.9% 50 ML IV SCH ×3 (08:20→22:29)
[2018-11-30 08:36] LABS: Basophils # (auto) 0.01 K/uL (0-0.2); Basophils % (auto) 0.1 %; Eosinophils # (auto) 0.03 K/uL (0-0.5); Eosinophils % (auto) 0.4 %; Immature Granulocytes # (auto) 0.08 K/uL (0.00-0.02); Immature Granulocytes % (auto) 1.1 %; Lymphocytes # (auto) 1.13 K/uL (1.2-3.4); Lymphocytes % (auto) 15.9 %; Monocytes # (auto) 0.39 K/uL (0.11-0.59); Monocytes % (auto) 5.5 %; Neutrophils # (auto) 5.48 K/uL (1.4-6.5)
--- NOTE | 2018-11-30 09:23 | Hospitalist Progress Note ---
Date of Service November 30, 2018 Assessment & Plan (1) Acute metabolic encephalopathy: per Dr. Leyva's notes: Acute Metabolic Encephalopathy This is a 53 yr old M who has a significant pmh of HTN, HLD, CKD-3, Vasculitis on chronic prednisone therapy, bipolar depression, post traumatic seizure d isorder, chronic thrombocytopenia, RBBB who presents to [facility] ED secondary to altered mental status and abdominal pain x 1 day. Likely secondary to infection, UTI versus pneumonia and complicated by acute pancreatitis and acute renal failure Much improved today but remains pleasantly confused Responding to vocal commands and trying to communicate No apparent distress Appreciate neurology input and recommendation Speech evaluation done-advised thickened diet MRI of the head-no acute findings EEG-Mildly abnormal EEG during wakefulness consistent with a generalized nonspecific encephalopathy and revealing no evidence for potentially epileptogenic activity Clinically little bit better but the confusion persist If the condition remains unchanged or deteriorates further plan will be to do LP November 30, 2018 Patient's mental status seems to improve 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 Started trial of hydrocortisone 50 mg IV 1 dose, and 25 mg every 8 hours Patient continues to improve continue hydrocortisone, taper down if with continued improvement Monitor Subclinical hypothyroidism contributing? TSH 10.4, free T4 1.39 Increase levothyroxine from 125 to 150 mcg daily Monitor response (2) Pancreatitis: Presented with abdominal pain and nausea CT scan did show:CT abdomen pelvis revealed acute pancreatitis, trace pleural effusion and trace abdominal pelvic ascites, gallbladder sludge, diverticulosis Patient bowel rest, IV fluids Lipase normalized Diet advanced, now with nectar thick pured diet Patient's CT abdomen showing gallbladder sludge GI consulted, recommend eventual cholecystectomy to prevent recurrence of pancreatitis Had episode of vomiting this evening obtain KUB (3) Pneumonia: Chest x-ray concerning for left basilar opacity and pleural effusion possibly consistent with pneumonia Urinalysis does have positive leukoesterase and nitrites, but negative bacteria -Per patient's sister he has history of UTI which presents as confusion Patient does not meet Sepsis Criteria Continue IV antibiotics with Zosyn, obtain mRSA nasal swab if negative will not cover for MRSA given concern for SHIELA Abd U/S Limited to RUQ to r/o gall bladder pathology as etiology of pancreatitis - currently unknown no ETOH or NSAID obtain NH3, blood cultures: Negative Urine culture has been negative Blood cultures have been negative Finished antibiotics Levaquin Symptomatically improved Completed 7 days of Zosyn IV Remains afebrile, respiratory status stable Wean off oxygen accordingly (4) Hyperglycemia: Blood glucose running in the 300s A1c 5.9 Possibly from pancreatitis? Glycemic control by pharmacist consulted Insulin Lantus and sliding scale aspart started Continue to monitor (5) Acute renal failure superimposed on stage 3 chronic kidney disease: crea 1.38 On IV fluids (6) Electrolyte abnormality: Na 132, K 5.3 likely in setting of SHIELA; however keep adrenal insuff on differential am cortisol level-within normal limit resolved (7) Hypertension: Blood pressure elevated increased Amlodipine to 10 mg p.o. daily On carvedilol (8) Hypothyroidism: Continue levothyroxine (9) Bipolar disorder: Continue Depakote, and Risperidone (10) Thrombocytopenia: Platelet count stable at 61 Chronically runs between 60 and 100 Had peripheral smear done in admission 04/2018 which was unrevealing Platelet remains low at 52 and 43 on 11/22 Plt 119 K No signs of active bleeding (11) DVT prophylaxis: SCDS/TEDS Start Lovenox Disposition PT OT ordered May need rehab or detention facility upon discharge medically stable Subjective Follow-up for encephalopathy, pancreatitis, pneumonia Seen resting in bed, watching TV, alert and awake Noted to person and place, answers more questions quickly, still has some confusion Denies shortness of breath, abdominal pain Tolerating diet well No other symptoms Review of Systems Review of Systems: All systems reviewed & are unremarkable except as noted in HPI & below Physical Exam Physical Exam: General- oriented x 3, not in distress, speaks in sentences with no effort or accessory muscle use Eyes- anicteric Neck- no JVD Lungs- clear breath sounds bilaterally Heart- normal rate, regular rhythm; no murmurs Abdomen- normal bowel sounds, nondistended, soft, nontender Extremities- no pretibial edema, no calf tenderness Neuro- alert, oriented x 2; no gross focal neurologic deficits Skin- warm & dry Results & Data Vital Signs (Past 12 Hours) Vital Signs Temp Pulse Pulse Resp BP Pulse Ox 11/30/18 07:41 36.3 C L 48 L 18 167/77 H 96 11/30/18 04:50 36.6 C 50 L 20 132/70 95 11/30/18 00:03 36.7 C 96 H 18 130/87 97 11/30/18 00:00 44 L
[2018-11-30] MEDS ORDERED: GLUCAGON FOR INJ 1 MG VIAL IM PRN (17:00)
[2018-11-30] MEDS ORDERED: CARBOHYDRATES FOR HYPOGLYCEMIA PO PRN (17:00)
[2018-11-30] MEDS ORDERED: GLUCOSE 40% GEL 15 GM TUBE PO PRN (17:00)
[2018-11-30] MEDS: GLUCOSE 10 TABS/TUBE PO PRN ×2 (17:10→17:27)
[2018-11-30] MEDS: DEXTROSE 50% 50 ML SYRINGE IV PRN ×2 (17:41→22:30)
[2018-11-30] MEDS: INSULIN GLARGINE SOLOSTAR 100 UNITS/ML 3 ML PEN SC SCH (18:42)
--- NOTE | 2018-11-30 19:18 | XRay Report ---
XR KUB/Abdomen 1 view CLINICAL HISTORY: vomiting, r/o obstruction COMPARISON STUDY: No previous studies for comparison. FINDINGS: There are dilated small bowel loops measuring up to 5.4 cm in diameter. The small bowel is dilated out of proportion to colonic gas. The findings are indicative of a small bowel obstruction. T here is a chronic deformity of the proximal right femur with destruction the femoral head and superio r lateral subluxation. IMPRESSION: 1. Small bowel obstructive pattern 2. Chronic right hip deformity and dislocation Electronically signed by: Ruben Delgadillo M.D. 11/30/2018 7:17 PM
[2018-11-30] MEDS ORDERED: INSULIN GLARGINE SOLOSTAR 100 UNITS/ML 3 ML PEN SC SCH (21:00)
[2018-11-30] MEDS ORDERED: D5W AND NSS 1,000 ML IV SCH (22:45)
[2018-12-01] MEDS: INSULIN ASPART 100 UNITS/ML 3 ML PEN SC SCH ×4 (06:09→23:25)
[2018-12-01] MEDS: LEVOTHYROXINE SODIUM 150 MCG TABLET PO SCH (06:10)
[2018-12-01] MEDS: SODIUM CHLORIDE 0.9% 1000ML IV SCH ×2 (07:41→17:55)
[2018-12-01 08:19] LABS: BUN Creatinine Ratio 25.1 (10-20); Calcium 9.5 mg/dl (8.5-10.1); Creatinine Clr Calc Pharmacy 54.3 ml/min; Est GFR (African American) 48.7; Potassium 3.3 mmol/L (3.5-5.1)
--- NOTE | 2018-12-01 08:43 | Surgery Progress Note ---
Date of Service December 01, 2018 Subjective did not have NG placed Results & Data Vital Signs (Past 12 Hours) Vital Signs Temp Pulse Pulse Resp BP Pulse Ox 12/01/18 08:00 69 12/01/18 07:22 37.3 C 68 16 119/65 98 12/01/18 05:00 37.0 C 64 20 129/77 95 11/30/18 23:00 37.3 C 68 18 128/82 96 11/30/18 21:30 69
[2018-12-01] MEDS: THIAMINE HCL 200 MG in SODIUM CHLORIDE 0.9% 50 ML IV SCH ×2 (08:52→13:42)
--- NOTE | 2018-12-01 08:58 | Surgery Consultation ---
Date of Consultation December 01, 2018 Assessment & Plan (1) Pancreatitis: Ileus vs SBO seems to be improved this morning will check KUB seen with Dr. Mccord History of Present Illness Attending Physician: Stewart Scott MD History of Present Illness 53 y/o male admitted 11 days ago for metabolic encephalopathy, pancreatitis, pneumonia last night had several episodes of vomiting. XR read as SBO, surgery was consulted and seen briefly last night by Dr. Mccord. NG was considered but does not have this morning. Some flatus but no BM, no further N/V per melissa ent but I'm not sure how reliable he is. No previous abdominal surgery. Allergies Allergy/AdvReac Type Severity Reaction Status Date / Time aspirin Allergy Unknown Nothing Verified 04/18/18 14:45 with Aspirin. bacitracin Allergy Unknown Rash Verified 04/18/18 14:45 Cephalosporins Allergy Unknown Unknown Verified 04/18/18 14:45 doxycycline Allergy Unknown . Verified 04/18/18 14:45 furosemide Allergy Unknown Oral Verified 04/18/18 14:45 solution - rash levofloxacin Allergy Unknown Rash Verified 04/18/18 14:45 neomycin Allergy Unknown Rash Verified 04/18/18 14:45 polymyxin B Allergy Unknown Rash Verified 04/18/18 14:45 Sulfa (Sulfonamide Allergy Unknown Bactrim - Verified 04/18/18 14:45 Antibiotics) rash. moxifloxacin Allergy Unknown Unverified 04/18/18 14:45 sulfamethoxazole Allergy Unknown Unverified 04/18/18 14:58 [From Bactrim] trimethoprim [From Bactrim] Allergy Unknown Unverified 04/18/18 14:58 Home Medications Home Medications Medication Instructions Recorded Confirmed Type ascorbic acid (vitamin C) [Vitamin 1,000 mg PO DAILY 02/10/18 11/20/18 History C] divalproex 1,000 mg PO BID 02/10/18 11/20/18 History imipramine HCl 25 mg PO TID 02/10/18 11/20/18 History levothyroxine 125 mcg PO QAM 02/10/18 11/20/18 History carvedilol 12.5 mg PO BIDM 04/18/18 11/20/18 History cyanocobalamin (vitamin B-12) 1,000 mcg PO DAILY 04/18/18 11/20/18 History [Vitamin B-12] omega [id number]-fish oil [Fish Oil] 1,000 mg PO DAILY 04/18/18 11/20/18 History ranitidine HCl 150 mg PO HS 04/18/18 11/20/18 History risperidone 1 mg PO BID 04/18/18 11/20/18 History vitamin E 400 unit PO DAILY 04/18/18 11/20/18 History prednisone 5 mg PO DAILY 04/23/18 11/20/18 History calcium carbonate-vitamin D3 1 tab PO DAILY 11/20/18 11/20/18 History [Calcium 600 + D(3)] duloxetine [Cymbalta] 60 mg PO DAILY 11/20/18 11/20/18 History Patient History Medical History Hypothyroidism (Chronic) Hyperprolactinemia (Chronic) Vasculitis (Chronic) CKD (chronic kidney disease), stage III (Chronic) ALKA (iron deficiency anemia) (Chronic) Post-traumatic seizures (Chronic) Hypertension (Chronic) Chronic pain (Chronic) Bipolar disorder (Chronic) RBBB (Chronic) Hyperlipidemia (Chronic) JHOANA (obstructive sleep apnea) (Chronic) does not use cpap or bipap Reflux esophagitis (Chronic) Goiter (Chronic) 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) Hypertension (Inactive) Surgical History History of fasciotomy (Chronic) History of tracheostomy (Chronic) History of total right hip arthroplasty (Chronic) Family History Other Family history unobtainable due to patient's condition Social History Preferred Language: Armenian Communication Ability: Unable [employer] Required: No Beliefs That Will Affect Care: None Current Living Situation: Family Current Living Situation Comment: Staying in shed at sister's house Other Information That Helps Us Care for You: No Feels Safe at Home: Declines to Answer Smoking Status: Never smoker Tobacco Type: cigarettes and smokeless tobacco Do You Dip or Chew Tobacco: No Second Hand Exposure: No Tobacco Cessation Education Requested by Patient: No Hx Alcohol Use: No Hx Substance Use: No Physical Exam Constitutional: + morbidly obese; no acute distress Gastrointestinal (Abdomen): Inspection/Auscultation: + abdomen distended (mild upper abdomen) Percussion/Palpation: abdomen soft; abdomen nontender Psychiatric: Affect: no anxious affect Results & Data Vital Signs (Past 12 Hours) Vital Signs Temp Pulse Pulse Resp BP Pulse Ox 12/01/18 08:00 69 12/01/18 07:22 37.3 C 68 16 119/65 98 12/01/18 05:00 37.0 C 64 20 129/77 95 11/30/18 23:00 37.3 C 68 18 128/82 96 11/30/18 21:30 69
[2018-12-01] MEDS: CALCIUM 600MG + VIT D 400 IU TAB PO SCH (09:03)
[2018-12-01] MEDS: DULOXETINE HCL 60 MG CAP PO SCH (09:03)
[2018-12-01] MEDS: MULTIVITAMIN TAB PO SCH (09:03)
[2018-12-01] MEDS: CARVEDILOL 12.5 MG TAB PO SCH ×2 (09:03→16:29)
[2018-12-01] MEDS ORDERED: BISACODYL 10 MG SUPP PR STA (09:03)
[2018-12-01] MEDS: DIVALPROEX DELAY RELEASE 500 MG TAB PO SCH ×2 (09:03→21:13)
--- NOTE | 2018-12-01 09:03 | Hospitalist Progress Note ---
Date of Service December 01, 2018 Assessment & Plan (1) Small bowel obstruction: Repeat KUB: Improving, possible ileus Positive BMs Continue n.p.o. status for now, IV fluids Appreciate general surgery service recommendations (2) Acute metabolic encephalopathy: per Dr. Leyva's notes: Acute Metabolic Encephalopathy This is a 53 yr old M who has a significant pmh of HTN, HLD, CKD-3, Vasculitis on chronic prednisone therapy, bipolar depression, post traumatic seizure disorder, chronic thrombocytopenia, RBBB who presents to [facility] ED secondary to altered mental status and abdominal pain x 1 day. Likely secondary to infection, UTI versus pneumonia and complicated by acute pancreatitis and acute renal failure Much improved today but remains pleasantly confused Responding to vocal commands and trying to communicate No apparent distress Appreciate neurology input and recommendation Speech evaluation done-advised thickened diet MRI of the head-no acute findings EEG-Mildly abnormal EEG during wakefulness consistent with a generalized nonspecific encephalopathy and revealing no evidence for potentially epileptogenic activity Clinically little bit better but the confusion persist If the condition remains unchanged or deteriorates further plan will be to do LP Mental status improving possible pancreatiic encephalopathy per Neuro BUN level more than normal limits, stop thiamine management of pancreatitis and pneumonia noted below Possible component of adrenal insufficiency? Started trial of hydrocortisone 50 mg IV 1 dose, and 25 mg every 8 hours Patient continues to improve continue hydrocortisone, taper down Monitor Subclinical hypothyroidism contributing? TSH 10.4, free T4 1.39 Increase levothyroxine from 125 to 150 mcg daily Monitor response (3) Pancreatitis: Presented with abdominal pain and nausea CT scan did show:CT abdomen pelvis revealed acute pancreatitis, trace pleural effusion and trace abdominal pelvic ascites, gallbladder sludge, diverticulosis Patient bowel rest, IV fluids Lipase normalized Diet advanced, now with nectar thick pured diet Patient's CT abdomen showing gallbladder sludge GI consulted, recommend eventual cholecystectomy to prevent recurrence of pancreatitis (4) Pneumonia: Chest x-ray concerning for left basilar opacity and pleural effusion possibly consistent with pneumonia Urinalysis does have positive leukoesterase and nitrites, but negative bacteria -Per patient's sister he has history of UTI which presents as confusion Patient does not meet Sepsis Criteria Continue IV antibiotics with Zosyn, obtain mRSA nasal swab if negative will not cover for MRSA given concern for SHIELA Abd U/S Limited to RUQ to r/o gall bladder pathology as etiology of pancreatitis - currently unknown no ETOH or NSAID obtain NH3, blood cultures: Negative Urine culture has been negative Blood cultures have been negative Finished antibiotics Levaquin Symptomatically improved Completed 7 days of Zosyn IV Remains afebrile, respiratory status stable Wean off oxygen accordingly (5) Hyperglycemia: Blood glucose running in the 300s A1c 5.9 Possibly from pancreatitis? Glycemic control by pharmacist consulted Insulin Lantus and sliding scale aspart started Continue to monitor (6) Acute renal failure superimposed on stage 3 chronic kidney disease: crea 1.71, continue IV fluids (7) Electrolyte abnormality: Replace potassium (8) Hypertension: Blood pressure elevated increased Amlodipine to 10 mg p.o. daily On carvedilol Improving, monitor (9) Hypothyroidism: Continue levothyroxine (10) Bipolar disorder: Continue Depakote, and Risperidone (11) Thrombocytopenia: Platelet count stable at 61 Chronically runs between 60 and 100 Had peripheral smear done in admission 04/2018 which was unrevealing Platelet remains low at 52 and 43 on 11/22 Plt 146k No signs of active bleeding (12) DVT prophylaxis: SCDS/TEDS Hold Lovenox in light of SBO, possible procedures Disposition PT OT ordered May need rehab or senior living facility upon discharge medically stable Subjective Follow-up for encephalopathy, pancreatitis, pneumonia, small bowel obstruction Seen resting in bed, comfortable, watching TV, awake alert conversant More oriented today, answers my questions appropriately Still has some degree of confusion Denies abdominal pain, no nausea or vomiting since this morning Denies chest pain, shortness of breath, cough Denies other symptoms Positive BMs today Review of Systems Review of Systems: All systems reviewed & are unremarkable except as noted in HPI & below Physical Exam Physical Exam: General- oriented x 2, not in distress, speaks in sentences with no effort or accessory muscle use Eyes- anicteric Neck- no JVD Lungs- clear breath sounds bilaterally Heart- normal rate, regular rhythm; no murmurs Abdomen-somewhat hypoactive bowel sounds, nondistended, soft, nontender Extremities- no pretibial edema, no calf tenderness Neuro- alert, oriented x 2; no gross focal neurologic deficits Skin- warm & dry Results & Data Vital Signs (Past 12 Hours) Vital Signs Temp Pulse Pulse Resp BP Pulse Ox 12/01/18 08:00 69 12/01/18 07:22 37.3 C 68 16 119/65 98 12/01/18 05:00 37.0 C 64 20 129/77 95 11/30/18 23:00 37.3 C 68 18 128/82 96 11/30/18 21:30 69
[2018-12-01] MEDS: IMIPRAMINE HCL 25 MG TAB PO SCH ×3 (09:04→21:13)
[2018-12-01] MEDS: CYANOCOBALAMIN 500 MCG TABLET (VITAMIN B-12) PO SCH (09:04)
[2018-12-01] MEDS: risperiDONE 1 MG TABLET PO SCH ×2 (09:04→21:13)
[2018-12-01] MEDS: AMLODIPINE BESYLATE 5 MG TAB PO SCH (09:04)
[2018-12-01] MEDS: POTASSIUM CHLORIDE / WTR 10 MEQ/100 ML PLCT IV SCH ×3 (09:16→11:30)
[2018-12-01 09:48] LABS: Basophils # (auto) 0.01 K/uL (0-0.2); Basophils % (auto) 0.2 %; Eosinophils # (auto) 0.06 K/uL (0-0.5); Eosinophils % (auto) 0.9 %; Hematocrit (blood only) 30.1 % (42-52); Hemoglobin 9.5 g/dL (14.0-18.0); Immature Granulocytes # (auto) 0.03 K/uL (0.00-0.02); Immature Granulocytes % (auto) 0.5 %; Lymphocytes # (auto) 0.95 K/uL (1.2-3.4); Lymphocytes % (auto) 14.4 %; Mean Corpuscular Hgb Conc 31.6 g/dL (32-36); Mean Corpuscular Volume 95.9 fL (80-100); Mean Platelet Volume 9.4 fL (7.4-10.4); Monocytes # (auto) 0.65 K/uL (0.11-0.59); Monocytes % (auto) 9.9 %; Neutrophils # (auto) 4.88 K/uL (1.4-6.5); Neutrophils % (auto) 74.1 %; Platelet Count 146 K/uL (130-400); RDW Coefficient of Variation 17.4 % (11.5-14.5); Red Blood Count 3.14 M/uL (4.7-6.1); White Blood Count 6.58 K/uL (4.8-10.8)
--- NOTE | 2018-12-01 10:50 | XRay Report ---
XR KUB/Abdomen 1 view CLINICAL HISTORY: ilues vs SBO COMPARISON STUDY: 11/30/2018 FINDINGS: Stable to slightly improved bowel pattern. No evidence for free air or obstructive change. IMPRESSION: Improved bowel pattern with moderate residual nonobstructive ileus. Pre-existing right h ip changes are again noted. The above report was generated using voice recognition software. It may contain grammatical, syntax or spelling errors. Electronically signed by: Justen Nevarez M.D. 12/01/2018 10:48 AM
[2018-12-01] MEDS: HYDROCORTISONE SOD 25 MG in SYRINGE 0 ML IV SCH ×2 (11:29→23:24)
[2018-12-01 14:17] LABS: BUN Creatinine Ratio 26.3 (10-20); Calcium 9.4 mg/dl (8.5-10.1); Creatinine Clr Calc Pharmacy 56.5 ml/min; Est GFR (African American) 51.1; Est GFR (Non-African American) 44.1; Potassium 3.7 mmol/L (3.5-5.1)
--- NOTE | 2018-12-01 14:32 | Pharmacy Report ---
Pharmacy Glycemic Short Note 2 - Date of Service December 01, 2018 - Glycemic Short BSG Results (Last 24 hours): 11/30/18 11/30/18 11/30/18 16:44 17:08 17:26 Glucose POC Glucose 54 L* 52 L* 56 L* 11/30/18 11/30/18 11/30/18 17:41 18:00 19:46 Glucose POC Glucose 59 L* 85 72 11/30/18 11/30/18 12/01/18 22:08 22:51 02:12 Glucose POC Glucose 61 L* 161 H 122 H 12/01/18 12/01/18 12/01/18 04:21 05:58 07:30 Glucose 184 H POC Glucose 143 H 165 H 12/01/18 12/01/18 12/01/18 07:44 12:04 13:39 Glucose 134 H POC Glucose 171 H 126 H OUTPATIENT ANTIDIABETIC REGIMEN: None A1c 5.9% on 11/28/18 ASSESSMENT: 12/01 * Pt with sustained hypoglycemia yesterday at dinnertime, Lantus held and Dextrose fluids started * Patient's blood sugars at goal this morning, changed fluids to NS * No lantus at this time, continue only loosened CF and CR at this time * Synthroid dose increased from 125mcg to 150mcg * Hydrocortisone decreased to 25mg IV Q12H 11/29 * BSGs improved significantly over the past 24 hours * He remains on hydrocortisone 25 mg q8h * Patient rec'd 41 units of insulin yesterday (20 of this was basal) * Fasting BSG = 154 mg/dL; will continue same dose but provide a scaled dose in case BSG increases * Novolog parameters fairly aggressive so will continue same for now 11/28 * 53 year old male admitted with metabolic encephalopathy, acute pancreatitis and acute renal failure, both resolved, but patient remains encephalopathic, therefore starting IV steroids. Hypothyroid, repeating labs, Dr Scott aware. * Patient hyperglycemic, BSG 313mg/dl - will begin basal bolus in insulin naive patient and titrate to goal blood sugar. PLAN FOR INPATIENT GLYCEMIC CONTROL: * Basal insulin - HOLD * Bolus insulin * NovoLog per scale ACHS or Q6hrs while NPO * Goal Range: Low 110 mg/dL - High 140 mg/dL * loosened: Correction Factor: 25 mg/dL/unit * loosened: Nutritional / Prandial insulin per carb ratio of 1 unit per 9 grams CHO consumed PLAN FOR DISCHARGE: * A1c = 5.9%; this is in the pre-diabetic range * Consider lifestyle modifications and/or addition of metformin to slow progression to diabetes
[2018-12-02] MEDS: SODIUM CHLORIDE 0.9% 1000ML IV SCH (03:28)
[2018-12-02] MEDS: INSULIN ASPART 100 UNITS/ML 3 ML PEN SC SCH ×4 (05:25→22:05)
[2018-12-02] MEDS: LEVOTHYROXINE SODIUM 150 MCG TABLET PO SCH (05:25)
[2018-12-02] MEDS: MULTIVITAMIN TAB PO SCH (07:33)
[2018-12-02] MEDS: AMLODIPINE BESYLATE 5 MG TAB PO SCH (07:33)
[2018-12-02] MEDS: DIVALPROEX DELAY RELEASE 500 MG TAB PO SCH ×2 (07:33→21:36)
[2018-12-02] MEDS: DULOXETINE HCL 60 MG CAP PO SCH (07:33)
[2018-12-02] MEDS: CARVEDILOL 12.5 MG TAB PO SCH ×2 (07:33→17:04)
[2018-12-02] MEDS: CALCIUM 600MG + VIT D 400 IU TAB PO SCH (07:33)
[2018-12-02] MEDS: IMIPRAMINE HCL 25 MG TAB PO SCH ×3 (07:34→21:37)
[2018-12-02] MEDS: CYANOCOBALAMIN 500 MCG TABLET (VITAMIN B-12) PO SCH (07:34)
[2018-12-02] MEDS: risperiDONE 1 MG TABLET PO SCH ×2 (07:34→21:37)
[2018-12-02 08:17] LABS: BUN Creatinine Ratio 25.2 (10-20); Calcium 9.6 mg/dl (8.5-10.1); Creatinine Clr Calc Pharmacy 65.1 ml/min; Est GFR (African American) 61.4; Est GFR (Non-African American) 52.9; Magnesium 1.6 mg/dl (1.8-2.4); Potassium 3.5 mmol/L (3.5-5.1)
[2018-12-02] MEDS: SODIUM CHLORIDE 0.45 % 1,000 ML IV SCH ×2 (09:44→17:02)
[2018-12-02] MEDS: HYDROCORTISONE SOD 25 MG in SYRINGE 0 ML IV SCH ×2 (11:18→21:38)
--- NOTE | 2018-12-02 12:04 | Surgery Progress Note ---
Date of Service December 02, 2018 Assessment & Plan (1) Small bowel obstruction: ileus resolving C. diff pending can have full liquids, advance later today or in AM will sign off Subjective multiple BM today and yesterday, hungry, asks for estonian fries Physical Exam Gastrointestinal (Abdomen): Inspection/Auscultation: abdomen not distended Percussion/Palpation: abdomen soft; abdomen nontender Results & Data Vital Signs (Past 12 Hours) Vital Signs Temp Pulse Resp BP Pulse Ox 12/02/18 07:12 36.9 C 65 16 137/76 90
[2018-12-02] MEDS ORDERED: Nursing to Pharmacy Communication ONE (15:33)
[2018-12-02] MEDS ORDERED: SODIUM CHLORIDE 0.9% 1000ML 1,000 ML IV SCH (18:15)
[2018-12-02 19:54] LABS: Cdiff Antigen Positive; Cdiff Toxin A+B Negative Cdiff Toxin (Negative)
--- NOTE | 2018-12-02 20:40 | Hospitalist Progress Note ---
Date of Service December 02, 2018 Assessment & Plan (1) Small bowel obstruction: Repeat KUB: Improving, possible ileus Positive BMs advance diet to Full liquids Appreciate general surgery service recommendations (2) Acute metabolic encephalopathy: per Dr. Leyva's notes: Acute Metabolic Encephalopathy This is a 53 yr old M who has a significant pmh of HTN, HLD, CKD-3, Vasculitis on chronic prednisone therapy, bipolar depression, post traumatic seizure disorder, chronic thrombocytopenia, RBBB who presents to [facility] ED secondary to altered mental status and abdominal pain x 1 day. Likely secondary to infection, UTI versus pneumonia and complicated by acute pancreatitis and acute renal failure Much improved today but remains pleasantly confused Responding to vocal commands and trying to communicate No apparent distress Appreciate neurology input and recommendation Speech evaluation done-advised thickened diet MRI of the head-no acute findings EEG-Mildly abnormal EEG during wakefulness consistent with a generalized nonspecific encephalopathy and revealing no evidence for potentially epileptogenic activity Clinically little bit better but the confusion persist If the condition remains unchanged or deteriorates further plan will be to do LP Mental status improving possible pancreatiic encephalopathy per Neuro BUN level more than normal limits, stop thiamine management of pancreatitis and pneumonia noted below Possible component of adrenal insufficiency? Started trial of hydrocortisone 50 mg IV 1 dose, and 25 mg every 8 hours Patient continues to improve continue hydrocortisone, taper down Monitor Subclinical hypothyroidism contributing? TSH 10.4, free T4 1.39 Increase levothyroxine from 125 to 150 mcg daily Monitor response (3) Pancreatitis: Presented with abdominal pain and nausea CT scan did show:CT abdomen pelvis revealed acute pancreatitis, trace pleural effusion and trace abdominal pelvic ascites, gallbladder sludge, diverticulosis Patient bowel rest, IV fluids Lipase normalized Diet advanced, now with nectar thick pured diet Patient's CT abdomen showing gallbladder sludge GI consulted, recommend eventual cholecystectomy to prevent recurrence of pancreatitis (4) Pneumonia: Chest x-ray concerning for left basilar opacity and pleural effusion possibly consistent with pneumonia Urinalysis does have positive leukoesterase and nitrites, but negative bacteria -Per patient's sister he has history of UTI which presents as confusion Patient does not meet Sepsis Criteria Continue IV antibiotics with Zosyn, obtain mRSA nasal swab if negative will not cover for MRSA given concern for SHIELA Abd U/S Limited to RUQ to r/o gall bladder pathology as etiology of pancreatitis - currently unknown no ETOH or NSAID obtain NH3, blood cultures: Negative Urine culture has been negative Blood cultures have been negative Finished antibiotics Levaquin Symptomatically improved Completed 7 days of Zosyn IV Remains afebrile, respiratory status stable Wean off oxygen accordingly (5) Hyperglycemia: Blood glucose running in the 300s A1c 5.9 Possibly from pancreatitis? Glycemic control by pharmacist consulted Insulin Lantus and sliding scale aspart started Continue to monitor (6) Acute renal failure superimposed on stage 3 chronic kidney disease: crea 1.4, continue IV fluids (7) Electrolyte abnormality: Replaced potassium (8) Hypertension: Blood pressure elevated increased Amlodipine to 10 mg p.o. daily On carvedilol Improving, monitor (9) Hypothyroidism: Continue levothyroxine (10) Bipolar disorder: Continue Depakote, and Risperidone (11) Thrombocytopenia: Platelet count stable at 61 Chronically runs between 60 and 100 Had peripheral smear done in admission 04/2018 which was unrevealing Platelet remains low at 52 and 43 on 11/22 Plt 146k No signs of active bleeding (12) DVT prophylaxis: SCDS/TEDS Hold Lovenox in light of SBO, possible procedures Disposition PT OT ordered May need rehab or care home facility upon discharge medically stable Subjective ff up for SBO, encephalopathy, pneumonia, pancreatitis seen resting in bed, comfortable more awake, alert, oriented x 2 answers more questions appropriately more calm, cooperative no vomiting overnight no abdominal pain has loose BMs denies other symptoms Review of Systems Review of Systems: All systems reviewed & are unremarkable except as noted in HPI & below Physical Exam Physical Exam: General- oriented x 2, not in distress, speaks in sentences with no effort or accessory muscle use Eyes- anicteric Neck- no JVD Lungs- clear breath sounds , no crackles BL Heart- normal rate, regular rhythm; no murmurs Abdomen- normal bowel sounds, nondistended, soft, nontender Extremities- no pretibial edema, no calf tenderness Neuro- alert, oriented x 2; no gross focal neurologic deficits Skin- warm & dry Results & Data Vital Signs (Past 12 Hours) Vital Signs Temp Pulse Resp BP Pulse Ox 12/02/18 15:43 36.8 C 92 H 16 164/84 H 96
[2018-12-02] MEDS ORDERED: ALUMINUM/MAGNESIUM/SIMETH (MAALOX MAX) 30 ML UDC PO STA (22:06)
[2018-12-03] MEDS: LEVOTHYROXINE SODIUM 150 MCG TABLET PO SCH (05:06)
[2018-12-03] MEDS: CARVEDILOL 12.5 MG TAB PO SCH ×2 (07:48→17:26)
[2018-12-03] MEDS: MULTIVITAMIN TAB PO SCH (07:48)
[2018-12-03] MEDS: DULOXETINE HCL 60 MG CAP PO SCH (07:48)
[2018-12-03] MEDS: CALCIUM 600MG + VIT D 400 IU TAB PO SCH (07:48)
[2018-12-03] MEDS: risperiDONE 1 MG TABLET PO SCH ×2 (07:48→21:12)
[2018-12-03] MEDS: AMLODIPINE BESYLATE 5 MG TAB PO SCH (07:48)
[2018-12-03] MEDS: CYANOCOBALAMIN 500 MCG TABLET (VITAMIN B-12) PO SCH (07:49)
[2018-12-03] MEDS: IMIPRAMINE HCL 25 MG TAB PO SCH ×3 (07:49→21:14)
[2018-12-03] MEDS: DIVALPROEX DELAY RELEASE 500 MG TAB PO SCH ×2 (07:49→21:12)
[2018-12-03] MEDS: INSULIN ASPART 100 UNITS/ML 3 ML PEN SC SCH ×4 (07:56→20:17)
[2018-12-03 09:18] LABS: BUN Creatinine Ratio 18.1 (10-20); Calcium 8.8 mg/dl (8.5-10.1); Creatinine Clr Calc Pharmacy 70.8 ml/min; Est GFR (Non-African American) 58.7; Potassium 3.3 mmol/L (3.5-5.1)
[2018-12-03 09:44] LABS: Hematocrit (blood only) 24.9 % (42-52); Hemoglobin 8.3 g/dL (14.0-18.0); Mean Corpuscular Hgb Conc 33.3 g/dL (32-36); Mean Corpuscular Volume 95.4 fL (80-100); Mean Platelet Volume 8.8 fL (7.4-10.4); Platelet Count 150 K/uL (130-400); RDW Standard Deviation 59.3 fL (36.4-46.3); Red Blood Count 2.61 M/uL (4.7-6.1); White Blood Count 4.95 K/uL (4.8-10.8)
[2018-12-03] MEDS: HYDROCORTISONE SOD 25 MG in SYRINGE 0 ML IV SCH ×2 (10:29→22:31)
[2018-12-03 10:36] LABS: Basophils # (auto) 0.01 K/uL (0-0.2); Basophils % (auto) 0.2 %; Eosinophils # (auto) 0.14 K/uL (0-0.5); Eosinophils % (auto) 2.8 %; Immature Granulocytes # (auto) 0.04 K/uL (0.00-0.02); Immature Granulocytes % (auto) 0.8 %; Lymphocytes # (auto) 1.72 K/uL (1.2-3.4); Lymphocytes % (auto) 34.7 %; Monocytes # (auto) 0.56 K/uL (0.11-0.59); Monocytes % (auto) 11.3 %; Neutrophils # (auto) 2.48 K/uL (1.4-6.5); Neutrophils % (auto) 50.2 %
--- NOTE | 2018-12-03 13:24 | Pharmacy Report ---
Pharmacy Glycemic Short Note 2 - Date of Service December 03, 2018 - Glycemic Short BSG Results (Last 24 hours): 12/02/18 12/02/18 12/03/18 16:37 20:34 07:34 Glucose 105 H POC Glucose 137 H 104 H 12/03/18 12/03/18 07:39 11:39 Glucose POC Glucose 108 H 135 H OUTPATIENT ANTIDIABETIC REGIMEN: None A1c 5.9% on 11/28/18 ASSESSMENT: BSGs over the previous 24hrs well controlled: [id number]/dL. Hydrocortisone 25mg q12 continues. Full liquid continues. PLAN FOR INPATIENT GLYCEMIC CONTROL: * Basal insulin - none indicated * Bolus insulin * NovoLog per scale ACHS or Q6hrs while NPO * Goal Range: Low 110 mg/dL - High 140 mg/dL * Correction Factor: 25 mg/dL/unit * Nutritional / Prandial insulin per carb ratio of 1 unit per 9 grams CHO consumed PLAN FOR DISCHARGE: * A1c = 5.9%; this is in the pre-diabetic range * Consider lifestyle modifications and/or addition of metformin to slow progression to diabetes
--- NOTE | 2018-12-03 15:30 | Hospitalist Progress Note ---
Date of Service December 03, 2018 Assessment & Plan (1) Small bowel obstruction: Repeat KUB: Improving, possible ileus Positive BMs Advance to regular diet today Appreciate general surgery service recommendations (2) Acute metabolic encephalopathy: per Dr. Leyva's notes: Acute Metabolic Encephalopathy This is a 53 yr old M who has a significant pmh of HTN, HLD, CKD-3, Vasculitis on chronic prednisone therapy, bipolar depression, post traumatic seizure disorder, chronic thrombocytopenia, RBBB who presents to [facility] ED secondary to altered mental status and abdominal pain x 1 day. Likely secondary to infection, UTI versus pneumonia and complicated by acute pancreatitis and acute renal failure Much improved today but remains pleasantly confused Responding to vocal commands and trying to communicate No apparent distress Appreciate neurology input and recommendation Speech evaluation done-advised thickened diet MRI of the head-no acute findings EEG-Mildly abnormal EEG during wakefulness consistent with a generalized nonspecific encephalopathy and revealing no evidence for potentially epileptogenic activity Clinically little bit better but the confusion persist If the condition remains unchanged or deteriorates further plan will be to do LP Mental status much improved compared to last week possible pancreatiic encephalopathy per Neuro Thiamine level more than normal limits, stop thiamine management of pancreatitis and pneumonia noted below Possible component of adrenal insufficiency? Started trial of hydrocortisone 50 mg IV 1 dose, and 25 mg every 8 hours Patient continues to improve continue hydrocortisone, transition to prednisone tomorrow Monitor Subclinical hypothyroidism contributing? TSH 10.4, free T4 1.39 Increase levothyroxine from 125 to 150 mcg daily Monitor response, repeat thyroid function tests in 4 to 6 weeks (3) Pancreatitis: Presented with abdominal pain and nausea CT scan did show:CT abdomen pelvis revealed acute pancreatitis, trace pleural effusion and trace abdominal pelvic ascites, gallbladder sludge, diverticulosis Patient bowel rest, IV fluids Lipase normalized Diet advanced, now with nectar thick pured diet Patient's CT abdomen showing gallbladder sludge GI consulted, recommend eventual cholecystectomy to prevent recurrence of pancreatitis (4) Pneumonia: Chest x-ray concerning for left basilar opacity and pleural effusion possibly consistent with pneumonia Urinalysis does have positive leukoesterase and nitrites, but negative bacteria -Per patient's sister he has history of UTI which presents as confusion Patient does not meet Sepsis Criteria Continue IV antibiotics with Zosyn, obtain mRSA nasal swab if negative will not cover for MRSA given concern for SHIELA Abd U/S Limited to RUQ to r/o gall bladder pathology as etiology of pancreatitis - currently unknown no ETOH or NSAID obtain NH3, blood cultures: Negative Urine culture has been negative Blood cultures have been negative Finished antibiotics Levaquin Symptomatically improved Completed 7 days of Zosyn IV Remains afebrile, respiratory status stable Wean off oxygen accordingly (5) Hyperglycemia: New diagnosis, patient not on oral DM meds or insulin at home Blood glucose running in the 300s A1c 5.9 Possibly from pancreatitis? Glycemic control by pharmacist consulted Insulin Lantus and sliding scale aspart started Continue to monitor (6) Acute renal failure superimposed on stage 3 chronic kidney disease: crea 1.4, continue IV fluids (7) Electrolyte abnormality: Replaced potassium (8) Hypertension: Blood pressure elevated increased Amlodipine to 10 mg p.o. daily On carvedilol Improving, monitor (9) Hypothyroidism: Continue levothyroxine (10) Bipolar disorder: Depakote reduced from 1000 twice daily to 500 mg twice daily per patient's sister's request Seems to be tolerating reduced dose so far Continue Risperidone (11) Thrombocytopenia: Platelet count stable at 61 Chronically runs between 60 and 100 Had peripheral smear done in admission 04/2018 which was unrevealing Platelet remains low at 52 and 43 on 11/22 Plt 150 K No signs of active bleeding (12) Leg edema, right: Not on any coagulation for DVT prophylaxis secondary to thrombocytopenia, possible procedures Check Doppler ultrasound to rule out DVT (13) DVT prophylaxis: SCDS/TEDS Start Lovenox Disposition PT OT ordered May need rehab or half-way facility upon discharge medically stable Subjective Follow-up for encephalopathy, pneumonia, acute appendicitis, small bowel obstruction Seen resting in bed, comfortable, not in distress Oriented x2, answers most questions appropriately, calm and cooperative No vomiting so far overnight, denies abdominal pain Denies shortness of breath, cough, no other symptoms Review of Systems Review of Systems: All systems reviewed & are unremarkable except as noted in HPI & below Physical Exam Physical Exam: General- oriented x2 , not in distress, speaks in sentences with no effort or accessory muscle use Eyes- anicteric Neck- no JVD Lungs- clear breath sounds bilaterally Heart- normal rate, regular rhythm; no murmurs Abdomen- normal bowel sounds, nondistended, soft, nontender Extremities- no pretibial edema, no calf tenderness Neuro- alert, oriented x 2; no gross focal neurologic deficits Skin- warm & dry Results & Data Vital Signs (Past 12 Hours) Vital Signs Temp Pulse Resp BP Pulse Ox 12/03/18 08:34 36.7 C 56 L 20 122/74 96
[2018-12-03] MEDS ORDERED: ENOXAPARIN INJ 40 MG/0.4 ML SYR SQ STA (19:32)
--- NOTE | 2018-12-03 20:19 | Ultrasound Report ---
US venous doppler LE RT CLINICAL HISTORY: Right leg pain COMPARISON STUDY: No previous studies for comparison. FINDINGS: Real-time and color flow Doppler imaging were performed. Flow was seen within the femoral, popliteal and calf veins with no intraluminal thrombus demonstrated. The saphenous vein is patent. IMPRESSION: No evidence of right lower extremity DVT Electronically signed by: Ruben Delgadillo M.D. 12/03/2018 8:18 PM
[2018-12-04] MEDS: LEVOTHYROXINE SODIUM 150 MCG TABLET PO SCH (05:56)
[2018-12-04] MEDS: CYANOCOBALAMIN 500 MCG TABLET (VITAMIN B-12) PO SCH (08:05)
[2018-12-04] MEDS: MULTIVITAMIN TAB PO SCH (08:06)
[2018-12-04] MEDS: AMLODIPINE BESYLATE 5 MG TAB PO SCH (08:06)
[2018-12-04] MEDS: CALCIUM 600MG + VIT D 400 IU TAB PO SCH (08:06)
[2018-12-04] MEDS: CARVEDILOL 12.5 MG TAB PO SCH ×2 (08:06→17:51)
[2018-12-04] MEDS: IMIPRAMINE HCL 25 MG TAB PO SCH ×3 (08:06→20:36)
[2018-12-04] MEDS: DIVALPROEX DELAY RELEASE 500 MG TAB PO SCH ×2 (08:07→20:35)
[2018-12-04] MEDS: DULOXETINE HCL 60 MG CAP PO SCH (08:07)
[2018-12-04] MEDS: risperiDONE 1 MG TABLET PO SCH ×2 (08:07→20:35)
[2018-12-04] MEDS: INSULIN ASPART 100 UNITS/ML 3 ML PEN SC SCH ×4 (08:10→20:20)
[2018-12-04 08:59] LABS: BUN Creatinine Ratio 11.5 (10-20); Creatinine Clr Calc Pharmacy 67.3 ml/min; Est GFR (Non-African American) 55.2; Potassium 3.7 mmol/L (3.5-5.1)
[2018-12-04] MEDS: HYDROCORTISONE SOD 25 MG in SYRINGE 0 ML IV SCH ×2 (14:14→22:15)
--- NOTE | 2018-12-04 17:32 | Hospitalist Progress Note ---
Date of Service December 04, 2018 Assessment & Plan (1) Small bowel obstruction: Repeat KUB: Improving, possible ileus Positive BMs Advance to regular diet and tolerating well Appreciate general surgery service recommendations Small bowel obstruction has been resolved Has had diarrhea C. difficile toxin has been negative but C. 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 Likely secondary to infection, UTI versus pneumonia and complicated by acute pancreatitis and acute renal failure Much improved today but remains pleasantly confused Responding to vocal commands and trying to communicate Appreciate neurology input and recommendation Speech evaluation done-advised thickened diet MRI of the head-no acute findings EEG-Mildly abnormal EEG during wakefulness consistent with a generalized nonspecific encephalopathy and revealing no evidence for potentially epileptogenic activity Mental status much improved compared to last week Possible pancreatiic encephalopathy per Neuro Thiamine level more than normal limits, stop thiamine Management of pancreatitis and pneumonia noted below Possible component of adrenal insufficiency? Started trial of hydrocortisone 50 mg IV 1 dose, and 25 mg every 8 hours Patient continues to improve Will start his usual dose of prednisone as an outpatient Metabolic encephalopathy seems to be cleared Monitor Subclinical hypothyroidism contributing? TSH 10.4, free T4 1.39 Increase levothyroxine from 125 to 150 mcg daily Monitor response, repeat thyroid function tests in 4 to 6 weeks (3) Pancreatitis: Presented with abdominal pain and nausea CT scan did show:CT abdomen pelvis revealed acute pancreatitis, trace pleural effusion and trace abdominal pelvic ascites, gallbladder sludge, diverticulosis Patient bowel rest, IV fluids Lipase normalized Diet advanced, now with nectar thick pured diet Patient's CT abdomen showing gallbladder sludge GI consulted, recommend eventual cholecystectomy to prevent recurrence of pancreatitis No acute symptoms of pancreatitis (4) Pneumonia: Chest x-ray concerning for left basilar opacity and pleural effusion possibly consistent with pneumonia Urinalysis does have positive leukoesterase and nitrites, but negative bacteria -Per patient's sister he has history of UTI which presents as confusion Patient does not meet Sepsis Criteria Continue IV antibiotics with Zosyn, obtain mRSA nasal swab if negative will not cover for MRSA given concern for SHIELA Abd U/S Limited to RUQ to r/o gall bladder pathology as etiology of pancreatitis - currently unknown no ETOH or NSAID obtain NH3, blood cultures: Negative Urine culture has been negative Blood cultures have been negative Finished antibiotics Levaquin Symptomatically improved (5) Hyperglycemia: New diagnosis, patient not on oral DM meds or insulin at home Blood glucose running in the 300s A1c 5.9 Possibly from pancreatitis? Glycemic control by pharmacist consulted Insulin Lantus and sliding scale aspart started Continue to monitor (6) Acute renal failure superimposed on stage 3 chronic kidney disease: crea 1.4, continue IV fluids (7) Electrolyte abnormality: Replaced potassium (8) Hypertension: Blood pressure elevated increased Amlodipine to 10 mg p.o. daily On carvedilol Improving, monitor (9) Hypothyroidism: Continue levothyroxine (10) Bipolar disorder: Depakote reduced from 1000 twice daily to 500 mg twice daily per patient's sister's request Seems to be tolerating reduced dose so far Continue Risperidone (11) Thrombocytopenia: Platelet count stable at 61 Chronically runs between 60 and 100 Had peripheral smear done in admission 04/2018 which was unrevealing Platelet remains low at 52 and 43 on 11/22 Plt 150 K No signs of active bleeding (12) Leg edema, right: Not on any coagulation for DVT prophylaxis secondary to thrombocytopenia, possible procedures Check Doppler ultrasound to rule out DVT (13) DVT prophylaxis: SCDS/TEDS Start Lovenox Disposition PT OT ordered Discussed with sister and likely replaced She does not think that the patient is yet ready to be discharged Subjective 12/04 The patient was seen and examined in the medical floor He has been feeling a lot better Diarrhea seems to be under control and no abdominal pain and/or distention Says he is not yet ready to be discharged Review of Systems Review of Systems: All systems reviewed and are unremarkable except as noted below Constitutional: + weakness, + daytime sleepiness and + problem reported (Remains confused) Respiratory: no dyspnea Cardiovascular: no chest pain Gastrointestinal: + diarrhea/loose stools (Seems to have improved) Neurologic: Alert, awake but pleasantly confused Physical Exam Physical Exam: Lying in bed comfortably Constitutional: well developed, well nourished and + obese; no acute distress and not ill appearing Eyes: PERRL, conjunctivae normal, anicteric sclerae ENMT: external ear and nose normal, oropharynx normal Neck: trachea midline, no thyromegaly Respiratory: normal respiratory effort; no respiratory distress Auscultation: + diminished lung sounds and + crackles (Minimal bibasilar crackles) Cardiovascular: Rate/Rhythm: regular rate and regular rhythm Heart Sounds: no murmur Gastrointestinal (Abdomen): Inspection/Auscultation: abdomen normal to inspection and normal bowel sounds Percussion/Palpation: abdomen soft; abdomen nontender and no ascites Musculoskeletal: No acute distress at rest Neurologic: moves all extremities; no focal motor deficits Speech / Cognition: + abnormal speech (Garbled speech at times-improved a lot) Mo tor/Sensory: no tremor Lymphatic: no cervical or axillary lymphadenopathy Results & Data Vital Signs (Past 12 Hours) Vital Signs Temp Pulse Resp BP BP Pulse Ox 12/04/18 15:01 36.7 C 63 20 131/71 93 12/04/18 07:07 36.7 C 60 20 127/66 94 Laboratory Results BMP 12/04/18 07:45 Sodium 138 Potassium 3.7 Chloride 105 Carbon Dioxide 29 BUN 16 Creatinine 1.42 H Glucose 122 H Calcium 9.0 Medications Administered Current Inpatient Medications Acetaminophen (Tylenol) 650 mg PO Q4H PRN PRN Reason: Pain or Fever Stop: 12/20/18 15:54 Last Admin: 11/21/18 16:46 Dose: 650 mg Documented by: Amlodipine Besylate (Norvasc) 10 mg PO QAM [facility] Stop: 12/29/18 08:59 Last Admin: 12/04/18 08:06 Dose: 10 mg Documented by: Carvedilol (Coreg) 12.5 mg PO BIDM [facility] Stop: 12/21/18 16:59 Last Admin: 12/04/18 08:06 Dose: 12.5 mg Documented by: Cyanocobalamin (Vitamin B-12) 1,000 mcg PO DAILY [facility] Stop: 12/21/18 11:14 Last Admin: 12/04/18 08:05 Dose: 1,000 mcg Documented by: Dextrose (Dextrose 50%) 25 - 50 ml IV UD PRN; Protocol PRN Reason: Hypoglycemia Protocol Stop: 12/30/18 16:59 Last Admin: 11/30/18 22:30 Dose: 25 ml Documented by: Divalproex Sodium (Depakote Delay Release) 500 mg PO BID [facility] Stop: 12/27/18 08:59 Last Admin: 12/04/18 08:07 Dose: 500 mg Documented by: Duloxetine HCl (Cymbalta) 60 mg PO DAILY [facility] Stop: 12/21/18 11:14 Last Admin: 12/04/18 08:07 Dose: 60 mg Documented by: Enoxaparin Sodium (Lovenox) 40 mg SQ DAILY@1999 [facility] Stop: 01/03/19 19:59 Glucagon (Glucagen) 1 mg IM UD PRN; Protocol PRN Reason: Hypoglycemia Protocol Stop: 12/30/18 16:59 Glucose (Glucose 40%) 15 - 30 gm PO UD PRN; Protocol PRN Reason: Hypoglycemia Protocol Stop: 12/30/18 16:59 Glucose (Dex4 Glucose) 4 - 8 tabs PO UD PRN; Protocol PRN Reason: Hypoglycemia Protocol Stop: 12/30/18 16:59 Last Admin: 11/30/18 17:27 Dose: 4 tabs Documented by: Hydrocortisone Sodium (Succinate 25 mg/ Syringe) 0.5 mls @ 4 mls/min IV Q12H [facility] Stop: 12/30/18 22:59 Last Admin: 12/04/18 14:14 Dose: 4 mls/min Documented by: Imipramine HCl (Tofranil) 25 mg PO TID [facility] Stop: 12/21/18 13:59 Last Admin: 12/04/18 14:14 Dose: 25 mg Documented by: Insulin Aspart (Novolog Flexpen) 0 units SC ACHS [facility]; Protocol Stop: 01/01/19 16:29 Last Admin: 12/04/18 12:49 Dose: 4 units Documented by: Levothyroxine Sodium (Synthroid) 150 mcg PO DAILYBB [facility] Stop: 12/29/18 06:29 Last Admin: 12/04/18 05:56 Dose: 150 mcg Documented by: Magnesium Hydroxide (Milk Of Magnesia) 30 ml PO Q6H PRN PRN Reason: Constipation Stop: 12/29/18 13:54 Miscellaneous (Carbohydrates For Hypoglycemia) 15 - 30 gm PO UD PRN PRN Reason: Hypoglycemia Treatment Stop: 12/30/18 16:59 Last Admin: 11/30/18 16:56 Dose: 15 gm Documented by: Miscellaneous Information (Consult Glycemic Management Pharmacy) 1 ea N/A UD [facility] Stop: 12/28/18 11:41 Multivitamins (Multivitamin Tab) 1 tab PO QAM [facility] Stop: 12/24/18 17:59 Last Admin: 12/04/18 08:06 Dose: 1 tab Documented by: Multivitamins/Minerals (Caltrate Plus) 1 tab PO DAILY [facility] Stop: 12/21/18 11:14 Last Admin: 12/04/18 08:06 Dose: 1 tab Documented by: Ondansetron HCl (Zofran) 4 mg IV Q6H PRN PRN Reason: Nausea Stop: 12/20/18 15:54 Last Admin: 11/20/18 20:53 Dose: 4 mg Documented by: Polyethylene Glycol (Miralax Powder Packet) 17 gm PO DAILY PRN PRN Reason: Constipation Stop: 12/20/18 15:54 Ranitidine HCl (Zantac) 150 mg PO HS [facility] Stop: 12/21/18 20:59 Last Admin: 12/03/18 21:12 Dose: 150 mg Documented by: Risperidone (Risperdal) 1 mg PO BID [facility] Stop: 12/21/18 11:14 Last Admin: 12/04/18 08:07 Dose: 1 mg Documented by:
[2018-12-04] MEDS: ENOXAPARIN INJ 40 MG/0.4 ML SYR SQ SCH (20:35)
[2018-12-05] MEDS: LEVOTHYROXINE SODIUM 150 MCG TABLET PO SCH (06:29)
[2018-12-05 08:20] LABS: Basophils # (auto) 0.02 K/uL (0-0.2); Basophils % (auto) 0.2 %; Eosinophils # (auto) 0.09 K/uL (0-0.5); Eosinophils % (auto) 0.8 %; Hematocrit (blood only) 25.9 % (42-52); Hemoglobin 8.5 g/dL (14.0-18.0); Immature Granulocytes # (auto) 0.16 K/uL (0.00-0.02); Immature Granulocytes % (auto) 1.5 %; Lymphocytes # (auto) 2.19 K/uL (1.2-3.4); Mean Corpuscular Hgb Conc 32.8 g/dL (32-36); Mean Corpuscular Volume 93.5 fL (80-100); Mean Platelet Volume 8.6 fL (7.4-10.4); Monocytes % (auto) 8.2 %; Neutrophils # (auto) 7.59 K/uL (1.4-6.5); Neutrophils % (auto) 69.3 %; Platelet Count 173 K/uL (130-400); RDW Standard Deviation 58.4 fL (36.4-46.3); Red Blood Count 2.77 M/uL (4.7-6.1); White Blood Count 10.95 K/uL (4.8-10.8)
[2018-12-05] MEDS: INSULIN ASPART 100 UNITS/ML 3 ML PEN SC SCH ×4 (08:40→20:55)
[2018-12-05] MEDS: AMLODIPINE BESYLATE 5 MG TAB PO SCH (08:42)
[2018-12-05] MEDS: DULOXETINE HCL 60 MG CAP PO SCH (08:43)
[2018-12-05] MEDS: CALCIUM 600MG + VIT D 400 IU TAB PO SCH (08:43)
[2018-12-05] MEDS: CYANOCOBALAMIN 500 MCG TABLET (VITAMIN B-12) PO SCH (08:43)
[2018-12-05] MEDS: DIVALPROEX DELAY RELEASE 500 MG TAB PO SCH ×2 (08:43→21:00)
[2018-12-05] MEDS: IMIPRAMINE HCL 25 MG TAB PO SCH ×3 (08:43→21:01)
[2018-12-05] MEDS: CARVEDILOL 12.5 MG TAB PO SCH ×2 (08:43→18:07)
[2018-12-05] MEDS: MULTIVITAMIN TAB PO SCH (08:44)
[2018-12-05] MEDS: risperiDONE 1 MG TABLET PO SCH ×2 (08:44→21:03)
[2018-12-05 09:02] LABS: BUN Creatinine Ratio 9.2 (10-20); Calcium 9.1 mg/dl (8.5-10.1); Creatinine Clr Calc Pharmacy 60.9 ml/min; Est GFR (African American) 56.7; Est GFR (Non-African American) 48.9; Magnesium 1.5 mg/dl (1.8-2.4); Phosphorus 2.1 mg/dl (2.5-4.9)
--- NOTE | 2018-12-05 12:35 | Pharmacy Report ---
Pharmacy Glycemic Short Note 2 - Date of Service December 05, 2018 - Glycemic Short BSG Results (Last 24 hours): 12/04/18 12/04/18 12/05/18 16:35 20:06 07:40 Glucose POC Glucose 99 137 H 157 H 12/05/18 12/05/18 08:06 11:34 Glucose 153 H POC Glucose 120 H OUTPATIENT ANTIDIABETIC REGIMEN: None A1c 5.9% on 11/28/18 ASSESSMENT: BSGs over the previous 24hrs well controlled: [id number]/dL. Hydrocortisone 25mg q12 D/C and steroids reduced by 50% to prednisone 5mg po daily. Diet advanced yesterday and PO intake is adequate. Steroid induced hyperglycemia likely negligible with this dosing. Will dc CR. PLAN FOR INPATIENT GLYCEMIC CONTROL: * Basal insulin - none indicated * Bolus insulin * NovoLog per scale ACHS or Q6hrs while NPO * Goal Range: Low 110 mg/dL - High 140 mg/dL * Correction Factor: 25 mg/dL/unit * D/C Nutritional / Prandial insulin per carb ratio of 1 unit per -- grams CHO consumed PLAN FOR DISCHARGE: * A1c = 5.9%; this is in the pre-diabetic range * Consider lifestyle modifications and/or addition of metformin to slow progression to diabetes
[2018-12-05] MEDS: predniSONE 5 MG TAB PO SCH (12:57)
--- NOTE | 2018-12-05 18:57 | Hospitalist Progress Note ---
Date of Service December 05, 2018 Assessment & Plan (1) Small bowel obstruction: Repeat KUB: Improving, possible ileus Positive BMs Advance to regular diet and tolerating well Appreciate general surgery service recommendations Small bowel obstruction has been resolved Has had diarrhea C. difficile toxin has been negative but C. difficile gene has been positive Discussed with ID Not infectious and does not require any treatment Denies any problem with bowel (2) Acute metabolic encephalopathy: Acute Metabolic Encephalopathy This is a 53 yr old M who has a significant pmh of HTN, HLD, CKD-3, Vasculitis on chronic prednisone therapy, bipolar depression, post traumatic seizure disorder, chronic thrombocytopenia, RBBB who presents to [facility] ED secondary to altered mental status and abdominal pain x 1 day. Likely secondary to infection, UTI versus pneumonia and complicated by acute pancreatitis and acute renal failure Much improved today but remains pleasantly confused Responding to vocal commands and trying to communicate Appreciate neurology input and recommendation Speech evaluation done-advised thickened diet MRI of the head-no acute findings EEG-Mildly abnormal EEG during wakefulness consistent with a generalized nonspecific encephalopathy and revealing no evidence for potentially epileptogenic activity Mental status much improved compared to last week Possible pancreatiic encephalopathy per Neuro Thiamine level more than normal limits, stop thiamine Management of pancreatitis and pneumonia noted below Possible component of adrenal insufficiency? Started trial of hydrocortisone 50 mg IV 1 dose, and 25 mg every 8 hours Patient continues to improve Will start his usual dose of prednisone as an outpatient Metabolic encephalopathy seems to be cleared Completely back to his baseline Monitor Subclinical hypothyroidism contributing? TSH 10.4, free T4 1.39 Increase levothyroxine from 125 to 150 mcg daily Monitor response, repeat thyroid function tests in 4 to 6 weeks (3) Pancreatitis: Presented with abdominal pain and nausea CT scan did show:CT abdomen pelvis revealed acute pancreatitis, trace pleural effusion and trace abdominal pelvic ascites, gallbladder sludge, diverticulosis Patient bowel rest, IV fluids Lipase normalized Diet advanced, now with nectar thick pured diet Patient's CT abdomen showing gallbladder sludge GI consulted, recommend eventual cholecystectomy to prevent recurrence of pancreatitis No acute symptoms of pancreatitis (4) Pneumonia: Chest x-ray concerning for left basilar opacity and pleural effusion p ossibly consistent with pneumonia Urinalysis does have positive leukoesterase and nitrites, but negative bacteria -Per patient's sister he has history of UTI which presents as confusion Patient does not meet Sepsis Criteria Continue IV antibiotics with Zosyn, obtain mRSA nasal swab if negative will not cover for MRSA given concern for SHIELA Abd U/S Limited to RUQ to r/o gall bladder pathology as etiology of pancreatitis - currently unknown no ETOH or NSAID obtain NH3, blood cultures: Negative Urine culture has been negative Blood cultures have been negative Finished antibiotics Levaquin Symptomatically improved-denies any cough and/or shortness of breath (5) Hyperglycemia: New diagnosis, patient not on oral DM meds or insulin at home Blood glucose running in the 300s A1c 5.9 Possibly from pancreatitis? Glycemic control by pharmacist consulted Insulin Lantus and sliding scale aspart started Continue to monitor (6) Acute renal failure superimposed on stage 3 chronic kidney disease: crea 1.4, continue IV fluids (7) Electrolyte abnormality: Replaced potassium (8) Hypertension: Blood pressure elevated increased Amlodipine to 10 mg p.o. daily On carvedilol Improving, monitor (9) Hypothyroidism: Continue levothyroxine (10) Bipolar disorder: Depakote reduced from 1000 twice daily to 500 mg twice daily per patient's sister's request Seems to be tolerating reduced dose so far Continue Risperidone (11) Thrombocytopenia: Platelet count stable at 61 Chronically runs between 60 and 100 Had peripheral smear done in admission 04/2018 which was unrevealing Platelet remains low at 52 and 43 on 11/22 Plt 150 K No signs of active bleeding (12) Leg edema, right: Not on any coagulation for DVT prophylaxis secondary to thrombocytopenia, possible procedures Check Doppler ultrasound to rule out DVT (13) DVT prophylaxis: SCDS/TEDS Start Lovenox Disposition PT OT ordered Discussed with sister and likely replaced She does not think that the patient is yet ready to be discharged Continue PT OT and await for placement Subjective 12/04 The patient was seen and examined in the medical floor He has been feeling a lot better Diarrhea seems to be under control and no abdominal pain and/or distention Says he is not yet ready to be discharged 12/05 Patient is seen and examined in medical floor He has been a lot better today Still remains weak and tired and does not want to be discharged until weakness is better Review of Systems Review of Systems: All systems reviewed and are unremarkable except as noted below Constitutional: + weakness, + daytime sleepiness and + problem reported (Remains confused) Gastrointestinal: + diarrhea/loose stools (Seems to have improved) Neurologic: Alert, awake but pleasantly confused Physical Exam Physical Exam: Lying in bed comfortably Constitutional: well developed, well nourished and + obese; no acute distress and not ill appearing Eyes: PERRL, conjunctivae normal, anicteric sclerae ENMT: external ear and nose normal, oropharynx normal Neck: trachea midline, no thyromegaly Respiratory: normal respiratory effort; no respiratory distress Auscultation: + diminished lung sounds and + crackles (Minimal bibasilar crackles) Cardiovascular: Rate/Rhythm: regular rate and regular rhythm Heart Sounds: no murmur Gastrointestinal (Abdomen): Inspection/Auscultation: abdomen normal to inspection and normal bowel sounds Percussion/Palpation: abdomen soft; abdomen nontender and no ascites Neurologic: moves all extremities; no focal motor deficits Speech / Cognition: + abnormal speech (Garbled speech at times-improved a lot) Motor/Sensory: no tremor Lymphatic: no cervical or axillary lymphadenopathy Results & Data Vital Signs (Past 12 Hours) Vital Signs Temp Pulse Resp BP BP Pulse Ox 12/05/18 14:53 36.5 C 62 21 96/56 L 99 12/05/18 07:23 36.8 C 59 L 20 136/77 98 Laboratory Results Short CBC 12/05/18 Range/Units 08:06 WBC 10.95 H (4.8-10.8) K/uL Hgb 8.5 L (14.0-18.0) g/dL Hct 25.9 L (42-52) % Plt Count 173 (130-400) K/uL BMP 12/05/18 08:06 Sodium 136 Potassium 4.0 Chloride 102 Carbon Dioxide 29 BUN 14 Creatinine 1.57 H Glucose 153 H Calcium 9.1 Medications Administered Current Inpatient Medications Acetaminophen (Tylenol) 650 mg PO Q4H PRN PRN Reason: Pain or Fever Stop: 12/20/18 15:54 Last Admin: 11/21/18 16:46 Dose: 650 mg Documented by: Amlodipine Besylate (Norvasc) 10 mg PO QAM [facility] Stop: 12/29/18 08:59 Last Admin: 12/05/18 08:42 Dose: 10 mg Documented by: Carvedilol (Coreg) 12.5 mg PO BIDM [facility] Stop: 12/21/18 16:59 Last Admin: 12/05/18 18:07 Dose: Not Given Documented by: Cyanocobalamin (Vitamin B-12) 1,000 mcg PO DAILY [facility] Stop: 12/21/18 11:14 Last Admin: 12/05/18 08:43 Dose: 1,000 mcg Documented by: Dextrose (Dextrose 50%) 25 - 50 ml IV UD PRN; Protocol PRN Reason: Hypoglycemia Protocol Stop: 12/30/18 16:59 Last Admin: 11/30/18 22:30 Dose: 25 ml Documented by: Divalproex Sodium (Depakote Delay Release) 500 mg PO BID [facility] Stop: 12/27/18 08:59 Last Admin: 12/05/18 08:43 Dose: 500 mg Documented by: Duloxetine HCl (Cymbalta) 60 mg PO DAILY [facility] Stop: 12/21/18 11:14 Last Admin: 12/05/18 08:43 Dose: 60 mg Documented by: Enoxaparin Sodium (Lovenox) 40 mg SQ DAILY@1999 [facility] Stop: 01/03/19 19:59 Last Admin: 12/04/18 20:35 Dose: 40 mg Documented by: Glucagon (Glucagen) 1 mg IM UD PRN; Protocol PRN Reason: Hypoglycemia Protocol Stop: 12/30/18 16:59 Glucose (Glucose 40%) 15 - 30 gm PO UD PRN; Protocol PRN Reason: Hypoglycemia Protocol Stop: 12/30/18 16:59 Glucose (Dex4 Glucose) 4 - 8 tabs PO UD PRN; Protocol PRN Reason: Hypoglycemia Protocol Stop: 12/30/18 16:59 Last Admin: 11/30/18 17:27 Dose: 4 tabs Documented by: Imipramine HCl (Tofranil) 25 mg PO TID [facility] Stop: 12/21/18 13:59 Last Admin: 12/05/18 15:06 Dose: 25 mg Documented by: Insulin Aspart (Novolog Flexpen) 0 units SC ACHS [facility]; Protocol Stop: 01/01/19 16:29 Last Admin: 12/05/18 17:16 Dose: 2 units Documented by: Levothyroxine Sodium (Synthroid) 150 mcg PO DAILYBB [facility] Stop: 12/29/18 06:29 Last Admin: 12/05/18 06:29 Dose: 150 mcg Documented by: Magnesium Hydroxide (Milk Of Magnesia) 30 ml PO Q6H PRN PRN Reason: Constipation Stop: 12/29/18 13:54 Miscellaneous (Carbohydrates For Hypoglycemia) 15 - 30 gm PO UD PRN PRN Reason: Hypoglycemia Treatment Stop: 12/30/18 16:59 Last Admin: 11/30/18 16:56 Dose: 15 gm Documented by: Miscellaneous Information (Consult Glycemic Management Pharmacy) 1 ea N/A UD [facility] Stop: 12/28/18 11:41 Multivitamins (Multivitamin Tab) 1 tab PO QAM [facility] Stop: 12/24/18 17:59 Last Admin: 12/05/18 08:44 Dose: 1 tab Documented by: Multivitamins/Minerals (Caltrate Plus) 1 tab PO DAILY [facility] Stop: 12/21/18 11:14 Last Admin: 12/05/18 08:43 Dose: 1 tab Documented by: Ondansetron HCl (Zofran) 4 mg IV Q6H PRN PRN Reason: Nausea Stop: 12/20/18 15:54 Last Admin: 11/20/18 20:53 Dose: 4 mg Documented by: Polyethylene Glycol (Miralax Powder Packet) 17 gm PO DAILY PRN PRN Reason: Constipation Stop: 12/20/18 15:54 Prednisone (Prednisone) 5 mg PO DAILY [facility] Stop: 01/04/19 12:29 Last Admin: 12/05/18 12:57 Dose: 5 mg Documented by: Ranitidine HCl (Zantac) 150 mg PO HS [facility] Stop: 12/21/18 20:59 Last Admin: 12/04/18 20:36 Dose: 150 mg Documented by: Risperidone (Risperdal) 1 mg PO BID [facility] Stop: 12/21/18 11:14 Last Admin: 12/05/18 08:44 Dose: 1 mg Documented by:
[2018-12-05] MEDS: ENOXAPARIN INJ 40 MG/0.4 ML SYR SQ SCH (20:58)
[2018-12-05] MEDS: HYDROCORTISONE SOD 25 MG in SYRINGE 0 ML IV SCH (22:19)
[2018-12-06] MEDS: LEVOTHYROXINE SODIUM 150 MCG TABLET PO SCH (05:08)
[2018-12-06 07:07] LABS: Basophils # (auto) 0.02 K/uL (0-0.2); Basophils % (auto) 0.2 %; Eosinophils # (auto) 0.24 K/uL (0-0.5); Eosinophils % (auto) 2.8 %; Hematocrit (blood only) 24.4 % (42-52); Hemoglobin 7.7 g/dL (14.0-18.0); Immature Granulocytes # (auto) 0.22 K/uL (0.00-0.02); Immature Granulocytes % (auto) 2.6 %; Lymphocytes # (auto) 2.52 K/uL (1.2-3.4); Lymphocytes % (auto) 29.5 %; Mean Corpuscular Hgb Conc 31.6 g/dL (32-36); Mean Corpuscular Volume 93.5 fL (80-100); Mean Platelet Volume 8.4 fL (7.4-10.4); Monocytes # (auto) 0.78 K/uL (0.11-0.59); Monocytes % (auto) 9.1 %; Neutrophils # (auto) 4.75 K/uL (1.4-6.5); Neutrophils % (auto) 55.8 %; Platelet Count 171 K/uL (130-400); RDW Coefficient of Variation 17.1 % (11.5-14.5); Red Blood Count 2.61 M/uL (4.7-6.1); White Blood Count 8.53 K/uL (4.8-10.8)
[2018-12-06 07:40] LABS: BUN Creatinine Ratio 10.3 (10-20); Creatinine Clr Calc Pharmacy 65.5 ml/min; Est GFR (African American) 61.9; Est GFR (Non-African American) 53.4; Potassium 3.4 mmol/L (3.5-5.1)
[2018-12-06] MEDS ORDERED: POTASSIUM PHOS 3 MMOL/1 ML INFUSION IV STA (07:54)
[2018-12-06] MEDS ORDERED: POTASSIUM CHLORIDE 20 MEQ TABCR PO STA (07:54)
[2018-12-06 08:03] LABS: RBC Morphology Unremarkable
[2018-12-06] MEDS ORDERED: MAGNESIUM SULFATE / D5W 1 GM/100 ML BAG IV ONE (08:15)
[2018-12-06] MEDS ORDERED: POTASSIUM PHOSPHATE 24 MMOL in SODIUM CHLORIDE 0.9% 500 ML IV ONE (08:15)
[2018-12-06] MEDS: CARVEDILOL 12.5 MG TAB PO SCH ×2 (08:47→17:51)
[2018-12-06] MEDS: MULTIVITAMIN TAB PO SCH (08:47)
[2018-12-06] MEDS: IMIPRAMINE HCL 25 MG TAB PO SCH ×3 (08:47→20:45)
[2018-12-06] MEDS: DULOXETINE HCL 60 MG CAP PO SCH (08:47)
[2018-12-06] MEDS: predniSONE 5 MG TAB PO SCH (08:48)
[2018-12-06] MEDS: CYANOCOBALAMIN 500 MCG TABLET (VITAMIN B-12) PO SCH (08:48)
[2018-12-06] MEDS: DIVALPROEX DELAY RELEASE 500 MG TAB PO SCH ×2 (08:48→20:45)
[2018-12-06] MEDS: risperiDONE 1 MG TABLET PO SCH ×2 (08:48→20:45)
[2018-12-06] MEDS: CALCIUM 600MG + VIT D 400 IU TAB PO SCH (08:48)
[2018-12-06] MEDS: AMLODIPINE BESYLATE 5 MG TAB PO SCH (08:49)
[2018-12-06] MEDS: INSULIN ASPART 100 UNITS/ML 3 ML PEN SC SCH ×4 (08:50→21:31)
--- NOTE | 2018-12-06 11:32 | Pharmacy Report ---
Pharmacy Glycemic Short Note 2 - Date of Service December 06, 2018 - Glycemic Short BSG Results (Last 24 hours): 12/05/18 12/05/18 12/05/18 11:34 16:37 20:11 Glucose POC Glucose 120 H 172 H 150 H 12/06/18 12/06/18 06:43 07:38 Glucose 123 H POC Glucose 129 H OUTPATIENT ANTIDIABETIC REGIMEN: None A1c 5.9% on 11/28/18 ASSESSMENT: BSGs over the previous 24hrs well controlled: [id number] mg/dL. Pt now on his outpatient dosing of Prednisone 5mg PO daily therefore, CR d/c. BSGs in goal range but slightly elevated. Will add conservative CR back to orders PLAN FOR INPATIENT GLYCEMIC CONTROL: * Basal insulin - none indicated * Bolus insulin * NovoLog per scale ACHS or Q6hrs while NPO * Goal Range: Low 110 mg/dL - High 140 mg/dL * Correction Factor: 30 mg/dL/unit * D/C Nutritional / Prandial insulin per carb ratio of 1 unit per 12 grams CHO consumed PLAN FOR DISCHARGE: * A1c = 5.9%; this is in the pre-diabetic range * Consider lifestyle modifications and/or addition of metformin to slow progression to diabetes
--- NOTE | 2018-12-06 14:54 | Hospitalist Progress Note ---
Date of Service December 06, 2018 Assessment & Plan (1) Acute metabolic encephalopathy: Acute Metabolic Encephalopathy This is a 53 yr old M who has a significant pmh of HTN, HLD, CKD-3, Vasculitis on chronic prednisone therapy, bipolar depression, post traumatic seizure disorder, chronic thrombocytopenia, RBBB who presents to [facility] ED secondary to altered mental status and abdominal pain x 1 day. 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 Started trial of hydrocortisone 50 mg IV 1 dose, and 25 mg every 8 hours Patient continues to improve Will start his usual dose of prednisone as an outpatient Metabolic encephalopathy seems to be cleared Completely back to his baseline Electrolyte imbalance Noted to have low potassium, low magnesium and low phosphate We will supplement and monitor Low hemoglobin Multifactorial and most likely due to ongoing infection and poor nutrition No acute blood loss We will get blood transfusion after discussion with the sister Subclinical hypothyroidism contributing? TSH 10.4, free T4 1.39 Increase levothyroxine from 125 to 150 mcg daily Monitor response, repeat thyroid function tests in 4 to 6 weeks (2) Small bowel obstruction: Repeat KUB: Improving, possible ileus Positive BMs Advance to regular diet and tolerating well Appreciate general surgery service recommendations Small bowel obstruction has been resolved Has had diarrhea C. difficile toxin has been negative but C. difficile gene has been positive Discussed with ID Not infectious and does not require any treatment Denies any problem with bowel (3) Pancreatitis: Presented with abdominal pain and nausea CT scan did show:CT abdomen pelvis revealed acute pancreatitis, trace pleural effusion and trace abdominal pelvic ascites, gallbladder sludge, diverticulosis Patient bowel rest, IV fluids Lipase normalized Diet advanced, now with nectar thick pured diet Patient's CT abdomen showing gallbladder sludge GI consulted, recommend eventual cholecystectomy to prevent recurrence of pancreatitis No acute symptoms of pancreatitis (4) Pneumonia: Chest x-ray concerning for left basilar opacity and pleural effusion possibly consistent with pneumonia Urinalysis does have positive leukoesterase and nitrites, but negative bacteria -Per patient's sister he has history of UTI which presents as confusion Patient does not meet Sepsis Criteria Continue IV antibiotics with Zosyn, obtain mRSA nasal swab if negative will not cover for MRSA given concern for SHIELA Abd U/S Limited to RUQ to r/o gall bladder pathology as etiology of pancreatitis - currently unknown no ETOH or NSAID obtain NH3, blood cultures: Negative Urine culture has been negative Blood cultures have been negative Finished antibiotics Levaquin Symptomatically improved-denies any cough and/or shortness of breath (5) Hyperglycemia: New diagnosis, patient not on oral DM meds or insulin at home Blood glucose running in the 300s A1c 5.9 Possibly from pancreatitis? Glycemic control by pharmacist consulted Insulin Lantus and sliding scale aspart started Continue to monitor (6) Acute renal failure superimposed on stage 3 chronic kidney disease: crea 1.4, continue IV fluids (7) Electrolyte abnormality: Has multiple electrolytes abnormalities Low potassium, magnesium and phosphate Will replace and monitor (8) Hypertension: Blood pressure elevated increased Amlodipine to 10 mg p.o. daily On carvedilol Improving, monitor (9) Hypothyroidism: Continue levothyroxine (10) Bipolar disorder: Depakote reduced from 1000 twice daily to 500 mg twice daily per patient's sister's request Seems to be tolerating reduced dose so far Continue Risperidone (11) Thrombocytopenia: Platelet count stable at 61 Chronically runs between 60 and 100 Had peripheral smear done in admission 04/2018 which was unrevealing Platelet remains low at 52 and 43 on 11/22 Plt 150 K No signs of active bleeding (12) Leg edema, right: Not on any coagulation for DVT prophylaxis secondary to thrombocytopenia, possible procedures Check Doppler ultrasound to rule out DVT (13) DVT prophylaxis: SCDS/TEDS Start Lovenox Disposition PT OT ordered Discussed with sister and likely replaced She does not think that the patient is yet ready to be discharged Continue PT OT and await for placement We will discuss with the sister Subjective 12/04 The patient was seen and examined in the medical floor He has been feeling a lot better Diarrhea seems to be under control and no abdominal pain and/or distention Says he is not yet ready to be discharged 12/05 Patient is seen and examined in medical floor He has been a lot better today Still remains weak and tired and does not want to be discharged until weakness is better 12/06 The patient was seen and examined in medical floor He has been feeling a lot better but still complains to have some weakness Still requiring 2 persons to moving around He is ready to be discharged Review of Systems Review of Systems: All systems reviewed and are unremarkable except as noted below Constitutional: + weakness Gastrointestinal: + diarrhea/loose stools (Seems to have improved) Neurologic: Alert, awake but pleasantly confused-mental status is back to his baseline Physical Exam Physical Exam: No apparent distress at rest Constitutional: well developed, well nourished and + obese; no acute distress and not ill appearing Eyes: PERRL, conjunctivae normal, anicteric sclerae ENMT: external ear and nose normal, oropharynx normal Neck: trachea midline, no thyromegaly Respiratory: normal respiratory effort; no respiratory distress Auscultation: + diminished lung sounds and + crackles (Minimal bibasilar crackles) Cardiovascular: Rate/Rhythm: regular rate and regular rhythm Heart Sounds: no murmur Gastrointestinal (Abdomen): Inspection/Auscultation: abdomen normal to inspection and normal bowel sounds Percussion/Palpation: abdomen soft; abdomen nontender and no ascites Musculoskeletal: No acute arthritis in any of the joints Neurologic: moves all extremities; no focal motor deficits Speech / Cognition: + abnormal speech (Garbled speech at times-improved a lot) Motor/Sensory: no tremor Generally weak Lymphatic: no cervical or axillary lymphadenopathy Results & Data Vital Signs (Past 12 Hours) Vital Signs Temp Pulse Resp BP Pulse Ox 12/06/18 07:23 36.7 C 64 20 120/72 93 Laboratory Results Short CBC 12/06/18 Range/Units 06:43 WBC 8.53 (4.8-10.8) K/uL Hgb 7.7 L (14.0-18.0) g/dL Hct 24.4 L (42-52) % Plt Count 171 (130-400) K/uL BMP 12/06/18 06:43 Sodium 135 L Potassium 3.4 L Chloride 102 Carbon Dioxide 27 BUN 15 Creatinine 1.46 H Glucose 123 H Calcium 9.0 Medications Administered Current Inpatient Medications Acetaminophen (Tylenol) 650 mg PO Q4H PRN PRN Reason: Pain or Fever Stop: 12/20/18 15:54 Last Admin: 11/21/18 16:46 Dose: 650 mg Documented by: Amlodipine [facility]ylate ([facility]) [facility] [place] Stop: 12/29/18 08:59 Last Admin: 12/06/18 08:49 Dose: 10 mg Documented by: Carvedilol (Coreg) 12.5 mg PO BIDM [facility] Stop: 12/21/18 16:59 Last Admin: 12/06/18 08:47 Dose: 12.5 mg Documented by: Cyanocobalamin (Vitamin B-12) 1,000 mcg PO DAILY [facility] Stop: 12/21/18 11:14 Last Admin: 12/06/18 08:48 Dose: 1,000 mcg Documented by: Dextrose (Dextrose 50%) 25 - 50 ml IV UD PRN; Protocol PRN Reason: Hypoglycemia Protocol Stop: 12/30/18 16:59 Last Admin: 11/30/18 22:30 Dose: 25 ml Documented by: Divalproex Sodium (Depakote Delay Release) 500 mg PO BID [facility] Stop: 12/27/18 08:59 Last Admin: 12/06/18 08:48 Dose: 500 mg Documented by: Duloxetine HCl (Cymbalta) 60 mg PO DAILY [facility] Stop: 12/21/18 11:14 Last Admin: 12/06/18 08:47 Dose: 60 mg Documented by: Enoxaparin Sodium (Lovenox) 40 mg SQ DAILY@1999 [facility] Stop: 01/03/19 19:59 Last Admin: 12/05/18 20:58 Dose: 40 mg Documented by: Glucagon (Glucagen) 1 mg IM UD PRN; Protocol PRN Reason: Hypoglycemia Protocol Stop: 12/30/18 16:59 Glucose (Glucose 40%) 15 - 30 gm PO UD PRN; Protocol PRN Reason: Hypoglycemia Protocol Stop: 12/30/18 16:59 Glucose (Dex4 Glucose) 4 - 8 tabs PO UD PRN; Protocol PRN Reason: Hypoglycemia Protocol Stop: 12/30/18 16:59 Last Admin: 11/30/18 17:27 Dose: 4 tabs Documented by: Imipramine HCl (Tofranil) 25 mg PO TID [facility] Stop: 12/21/18 13:59 Last Admin: 12/06/18 13:25 Dose: 25 mg Documented by: Insulin Aspart (Novolog Flexpen) 0 units SC ACHS [facility]; Protocol Stop: 01/01/19 16:29 Last Admin: 12/06/18 13:24 Dose: 10 units Documented by: Levothyroxine Sodium (Synthroid) 150 mcg PO DAILYBB [facility] Stop: 12/29/18 06:29 Last Admin: 12/06/18 05:08 Dose: 150 mcg Documented by: Magnesium Hydroxide (Milk Of Magnesia) 30 ml PO Q6H PRN PRN Reason: Constipation Stop: 12/29/18 13:54 Miscellaneous (Carbohydrates For Hypoglycemia) 15 - 30 gm PO UD PRN PRN Reason: Hypoglycemia Treatment Stop: 12/30/18 16:59 Last Admin: 11/30/18 16:56 Dose: 15 gm Documented by: Miscellaneous Information (Consult Glycemic Management Pharmacy) 1 ea N/A UD [facility] Stop: 12/28/18 11:41 Multivitamins (Multivitamin Tab) 1 tab PO QAM [facility] Stop: 12/24/18 17:59 Last Admin: 12/06/18 08:47 Dose: 1 tab Documented by: Multivitamins/Minerals (Caltrate Plus) 1 tab PO DAILY [facility] Stop: 12/21/18 11:14 Last Admin: 12/06/18 08:48 Dose: 1 tab Documented by: Ondansetron HCl (Zofran) 4 mg IV Q6H PRN PRN Reason: Nausea Stop: 12/20/18 15:54 Last Admin: 11/20/18 20:53 Dose: 4 mg Documented by: Polyethylene Glycol (Miralax Powder Packet) 17 gm PO DAILY PRN PRN Reason: Constipation Stop: 12/20/18 15:54 Prednisone (Prednisone) 5 mg PO DAILY [facility] Stop: 01/04/19 12:29 Last Admin: 12/06/18 08:48 Dose: 5 mg Documented by: Ranitidine HCl (Zantac) 150 mg PO HS [facility] Stop: 12/21/18 20:59 Last Admin: 12/05/18 21:02 Dose: 150 mg Documented by: Risperidone (Risperdal) 1 mg PO BID [facility] Stop: 12/21/18 11:14 Last Admin: 12/06/18 08:48 Dose: 1 mg Documented by:
[2018-12-06] MEDS: ENOXAPARIN INJ 40 MG/0.4 ML SYR SQ SCH (20:46)
[2018-12-07 06:49] LABS: Basophils # (auto) 0.01 K/uL (0-0.2); Basophils % (auto) 0.1 %; Eosinophils # (auto) 0.17 K/uL (0-0.5); Eosinophils % (auto) 2.2 %; Hematocrit (blood only) 24.4 % (42-52); Hemoglobin 7.9 g/dL (14.0-18.0); Immature Granulocytes # (auto) 0.33 K/uL (0.00-0.02); Immature Granulocytes % (auto) 4.4 %; Lymphocytes # (auto) 2.33 K/uL (1.2-3.4); Lymphocytes % (auto) 30.8 %; Mean Corpuscular Hgb Conc 32.4 g/dL (32-36); Mean Corpuscular Volume 93.8 fL (80-100); Mean Platelet Volume 8.4 fL (7.4-10.4); Monocytes % (auto) 7.9 %; Neutrophils # (auto) 4.12 K/uL (1.4-6.5); Neutrophils % (auto) 54.6 %; Nucleated RBC # (auto) 0.04 K/uL (0-0); Nucleated RBC % (auto) 0.6 %; Platelet Count 171 K/uL (130-400); RDW Coefficient of Variation 17.3 % (11.5-14.5); RDW Standard Deviation 59.4 fL (36.4-46.3); White Blood Count 7.56 K/uL (4.8-10.8)
[2018-12-07 07:24] LABS: BUN Creatinine Ratio 11.4 (10-20); Calcium 9.2 mg/dl (8.5-10.1); Creatinine Clr Calc Pharmacy 60.5 ml/min; Est GFR (African American) 56.2; Est GFR (Non-African American) 48.5; Magnesium 1.9 mg/dl (1.8-2.4); Phosphorus 3.7 mg/dl (2.5-4.9); Potassium 4.1 mmol/L (3.5-5.1)
[2018-12-07 07:26] LABS: RBC Morphology Unremarkable
[2018-12-07] MEDS: AMLODIPINE BESYLATE 5 MG TAB PO SCH (07:55)
[2018-12-07] MEDS: CYANOCOBALAMIN 500 MCG TABLET (VITAMIN B-12) PO SCH (07:56)
[2018-12-07] MEDS: MULTIVITAMIN TAB PO SCH (07:56)
[2018-12-07] MEDS: predniSONE 5 MG TAB PO SCH (07:56)
[2018-12-07] MEDS: DULOXETINE HCL 60 MG CAP PO SCH (07:56)
[2018-12-07] MEDS: CALCIUM 600MG + VIT D 400 IU TAB PO SCH (07:56)
[2018-12-07] MEDS: IMIPRAMINE HCL 25 MG TAB PO SCH ×3 (07:57→21:09)
[2018-12-07] MEDS: risperiDONE 1 MG TABLET PO SCH ×2 (07:57→21:09)
[2018-12-07] MEDS: INSULIN ASPART 100 UNITS/ML 3 ML PEN SC SCH ×4 (08:00→21:13)
[2018-12-07] MEDS: CARVEDILOL 12.5 MG TAB PO SCH ×2 (08:41→17:01)
[2018-12-07] MEDS: DIVALPROEX DELAY RELEASE 500 MG TAB PO SCH ×2 (08:41→21:12)
[2018-12-07] MEDS ORDERED: SODIUM CHLORIDE 0.9% 250 ML IV PRN (12:24)
[2018-12-07] MEDS ORDERED: FUROSEMIDE 40 MG/4 ML VIAL IV ONE (12:30)
[2018-12-07] MEDS: LEVOTHYROXINE SODIUM 150 MCG TABLET PO SCH (12:47)
[2018-12-07] MEDS ORDERED: FUROSEMIDE 40 MG in SYRINGE 0 ML IV SCH (13:00)
--- NOTE | 2018-12-07 15:13 | Hospitalist Progress Note ---
Date of Service December 07, 2018 Assessment & Plan (1) Acute metabolic encephalopathy: Acute Metabolic Encephalopathy This is a 53 yr old M who has a significant pmh of HTN, HLD, CKD-3, Vasculitis on chronic prednisone therapy, bipolar depression, post traumatic seizure disorder, chronic thrombocytopenia, RBBB who presents to [facility] ED secondary to altered mental status and abdominal pain x 1 day. 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 Started trial of hydrocortisone 50 mg IV 1 dose, and 25 mg every 8 hours Patient continues to improve Will start his usual dose of prednisone as an outpatient Metabolic encephalopathy seems to be cleared Completely back to his baseline Electrolyte imbalance Noted to have low potassium, low magnesium and low phosphate We will supplement and monitor Corrected with supplement Low hemoglobin Multifactorial and most likely due to ongoing infection and poor nutrition No acute blood loss Discussed with the patient and the sister Discussed pros and cons of having blood transfusion The patient wanted to have blood transfusion and the sister aggravate Will give 2 units of her blood transfusion with Lasix 40 mg IV in between Check hemoglobin tomorrow Subclinical hypothyroidism contributing? TSH 10.4, free T4 1.39 Increase levothyroxine from 125 to 150 mcg daily Monitor response, repeat thyroid function tests in 4 to 6 weeks (2) Small bowel obstruction: Repeat KUB: Improving, possible ileus Positive BMs Advance to regular diet and tolerating well Appreciate general surgery service recommendations Small bowel obstruction has been resolved Has had diarrhea C. difficile toxin has been negative but C. difficile gene has been positive Discussed with ID Not infectious and does not require any treatment Denies any problem with bowel (3) Pancreatitis: Presented with abdominal pain and nausea CT scan did show:CT abdomen pelvis revealed acute pancreatitis, trace pleural effusion and trace abdominal pelvic ascites, gallbladder sludge, diverticulosis Patient bowel rest, IV fluids Lipase normalized Diet advanced, now with nectar thick pured diet Patient's CT abdomen showing gallbladder sludge GI consulted, recommend eventual cholecystectomy to prevent recurrence of pancreatitis No acute symptoms of pancreatitis (4) Pneumonia: Chest x-ray concerning for left basilar opacity and pleural effusion possibly consistent with pneumonia Urinalysis does have positive leukoesterase and nitrites, but negative bacteria -Per patient's sister he has history of UTI which presents as confusion Patient does not meet Sepsis Criteria Continue IV antibiotics with Zosyn, obtain mRSA nasal swab if negative will not cover for MRSA given concern for SHIELA Abd U/S Limited to RUQ to r/o gall bladder pathology as etiology of pancreatitis - currently unknown no ETOH or NSAID obtain NH3, blood cultures: Negative Urine culture has been negative Blood cultures have been negative Finished antibiotics Levaquin Symptomatically improved-denies any cough and/or shortness of breath (5) Hyperglycemia: New diagnosis, patient not on oral DM meds or insulin at home Blood glucose running in the 300s A1c 5.9 Possibly from pancreatitis? Glycemic control by pharmacist consulted Insulin Lantus and sliding scale aspart started Continue to monitor (6) Acute renal failure superimposed on stage 3 chronic kidney disease: crea 1.4, continue IV fluids (7) Electrolyte abnormality: Has multiple electrolytes abnormalities Low potassium, magnesium and phosphate Will replace and monitor (8) Hypertension: Blood pressure elevated increased Amlodipine to 10 mg p.o. daily On carvedilol Improving, monitor (9) Hypothyroidism: Continue levothyroxine (10) Bipolar disorder: Depakote reduced from 1000 twice daily to 500 mg twice daily per patient's sister's request Seems to be tolerating reduced dose so far Continue Risperidone (11) Thrombocytopenia: Platelet count stable at 61 Chronically runs between 60 and 100 Had peripheral smear done in admission 04/2018 which was unrevealing Platelet remains low at 52 and 43 on 11/22 Plt 150 K No signs of active bleeding (12) Leg edema, right: Not on any coagulation for DVT prophylaxis secondary to thrombocytopenia, possible procedures Check Doppler ultrasound to rule out DVT (13) DVT prophylaxis: SCDS/TEDS Start Lovenox Disposition PT OT ordered Discussed with sister and likely replaced She does not think that the patient is yet ready to be discharged Continue PT OT and await for placement We will discuss with the sister Subjective 12/04 The patient was seen and examined in the medical floor He has been feeling a lot better Diarrhea seems to be under control and no abdominal pain and/or distention Says he is not yet ready to be discharged 12/05 Patient is seen and examined in medical floor He has been a lot better today Still remains weak and tired and does not want to be discharged until weakness is better 12/06 The patient was seen and examined in medical floor He has been feeling a lot better but still complains to have some weakness Still requiring 2 persons to moving around He is ready to be discharged 12/07 Patient was seen and examined in the presence of the sister He has been feeling a lot better for the last 2 days and denies any significant symptoms except weakness He has been getting physical therapy Noted to have low hemoglobin of 7.9 today Review of Systems Review of Systems: All systems reviewed and are unremarkable except as noted below Constitutional: + weakness Gastrointestinal: + diarrhea/loose stools (Seems to have improved) Neurologic: Alert, awake but pleasantly confused-mental status is back to his baseline Physical Exam Constitutional: well developed, well nourished and + obese; no acute distress and not ill appearing Eyes: PERRL, conjunctivae normal, anicteric sclerae ENMT: external ear and nose normal, oropharynx normal Neck: trachea midline, no thyromegaly Respiratory: normal respiratory effort; no respiratory distress Auscultation: + diminished lung sounds and + crackles (Minimal bibasilar crackles) Cardiovascular: Rate/Rhythm: regular rate and regular rhythm Heart Sounds: no murmur Gastrointestinal (Abdomen): Inspection/Auscultation: abdomen normal to inspection and normal bowel sounds Percussion/Palpation: abdomen soft; abdomen nontender and no ascites Neurologic: moves all extremities; no focal motor deficits Speech / Cognition: + abnormal speech (Garbled speech at times-improved a lot) Motor/Sensory: no tremor Lymphatic: no cervical or axillary lymphadenopathy Results & Data Vital Signs (Past 12 Hours) Vital Signs Temp Pulse Resp BP Pulse Ox 12/07/18 15:08 36.7 C 70 16 158/81 H 96 12/07/18 07:13 36.5 C 56 L 16 144/82 H 97 Laboratory Results Short CBC 12/07/18 Range/Units 06:26 WBC 7.56 (4.8-10.8) K/uL Hgb 7.9 L (14.0-18.0) g/dL Hct 24.4 L (42-52) % Plt Count 171 (130-400) K/uL [facility] 12/07/18 06:26 Sodium 140 Potassium 4.1 D Chloride 107 Carbon Dioxide 29 BUN 18 Creatinine 1.58 H Glucose 137 H Calcium 9.2 Medications Administered Current Inpatient Medications Acetaminophen (Tylenol) 650 mg PO Q4H PRN PRN Reason: Pain or Fever Stop: 12/20/18 15:54 Last Admin: 11/21/18 16:46 Dose: 650 mg Documented by: Amlodipine Besylate (Norvasc) 10 mg PO QAM [facility] Stop: 12/29/18 08:59 Last Admin: 12/07/18 07:55 Dose: 10 mg Documented by: Carvedilol (Coreg) 12.5 mg PO BIDM [facility] Stop: 12/21/18 16:59 Last Admin: 12/07/18 08:41 Dose: Not Given Documented by: Cyanocobalamin (Vitamin B-12) 1,000 mcg PO DAILY [facility] Stop: 12/21/18 11:14 Last Admin: 12/07/18 07:56 Dose: 1,000 mcg Documented by: Dextrose (Dextrose 50%) 25 - 50 ml IV UD PRN; Protocol PRN Reason: Hypoglycemia Protocol Stop: 12/30/18 16:59 Last Admin: 11/30/18 22:30 Dose: 25 ml Documented by: Divalproex Sodium (Depakote Delay Release) 500 mg PO BID [facility] Stop: 12/27/18 08:59 Last Admin: 12/07/18 08:41 Dose: 500 mg Documented by: Duloxetine HCl (Cymbalta) 60 mg PO DAILY [facility] Stop: 12/21/18 11:14 Last Admin: 12/07/18 07:56 Dose: 60 mg Documented by: Enoxaparin Sodium (Lovenox) 40 mg SQ DAILY@1999 [facility] Stop: 01/03/19 19:59 Last Admin: 12/06/18 20:46 Dose: 40 mg Documented by: Glucagon (Glucagen) 1 mg IM UD PRN; Protocol PRN Reason: Hypoglycemia Protocol Stop: 12/30/18 16:59 Glucose (Glucose 40%) 15 - 30 gm PO UD PRN; Protocol PRN Reason: Hypoglycemia Protocol Stop: 12/30/18 16:59 Glucose (Dex4 Glucose) 4 - 8 tabs PO UD PRN; Protocol PRN Reason: Hypoglycemia Protocol Stop: 12/30/18 16:59 Last Admin: 11/30/18 17:27 Dose: 4 tabs Documented by: Sodium Chloride (Nss) 250 mls @ 15 mls/hr IV .[id number] PRN PRN Reason: For Transfusion Stop: 01/06/19 12:23 Furosemide 40 mg/ Syringe 4 mls @ 4 mls/min IV 1300 [facility] Stop: 12/07/18 18:00 Imipramine HCl (Tofranil) 25 mg PO TID [facility] Stop: 12/21/18 13:59 Last Admin: 12/07/18 14:19 Dose: 25 mg Documented by: Insulin Aspart (Novolog Flexpen) 0 units SC ACHS [facility]; Protocol Stop: 01/01/19 16:29 Last Admin: 12/07/18 12:37 Dose: 7 units Documented by: Levothyroxine Sodium (Synthroid) 150 mcg PO DAILYBB [facility] Stop: 12/29/18 06:29 Last Admin: 12/07/18 12:47 Dose: Not Given Documented by: Magnesium Hydroxide (Milk Of Magnesia) 30 ml PO Q6H PRN PRN Reason: Constipation Stop: 12/29/18 13:54 Miscellaneous (Carbohydrates For Hypoglycemia) 15 - 30 gm PO UD PRN PRN Reason: Hypoglycemia Treatment Stop: 12/30/18 16:59 Last Admin: 11/30/18 16:56 Dose: 15 gm Documented by: Miscellaneous Information (Consult Glycemic Management Pharmacy) 1 ea N/A UD [facility] Stop: 12/28/18 11:41 Multivitamins (Multivitamin Tab) 1 tab PO QAM [facility] Stop: 12/24/18 17:59 Last Admin: 12/07/18 07:56 Dose: 1 tab Documented by: Multivitamins/Minerals (Caltrate Plus) 1 tab PO DAILY [facility] Stop: 12/21/18 11:14 Last Admin: 12/07/18 07:56 Dose: 1 tab Documented by: Ondansetron HCl (Zofran) 4 mg IV Q6H PRN PRN Reason: Nausea Stop: 12/20/18 15:54 Last Admin: 11/20/18 20:53 Dose: 4 mg Documented by: Polyethylene Glycol (Miralax Powder Packet) 17 gm PO DAILY PRN PRN Reason: Constipation Stop: 12/20/18 15:54 Prednisone (Prednisone) 5 mg PO DAILY [facility] Stop: 01/04/19 12:29 Last Admin: 12/07/18 07:56 Dose: 5 mg Documented by: Ranitidine HCl (Zantac) 150 mg PO HS [facility] Stop: 12/21/18 20:59 Last Admin: 12/06/18 20:46 Dose: 150 mg Documented by: Risperidone (Risperdal) 1 mg PO BID [facility] Stop: 12/21/18 11:14 Last Admin: 12/07/18 07:57 Dose: 1 mg Documented by:
[2018-12-07] MEDS: ENOXAPARIN INJ 40 MG/0.4 ML SYR SQ SCH (21:10)
[2018-12-08] MEDS: LEVOTHYROXINE SODIUM 150 MCG TABLET PO SCH (06:25)
[2018-12-08] MEDS: risperiDONE 1 MG TABLET PO SCH ×2 (07:56→20:06)
[2018-12-08] MEDS: IMIPRAMINE HCL 25 MG TAB PO SCH ×3 (07:56→20:06)
[2018-12-08] MEDS: CALCIUM 600MG + VIT D 400 IU TAB PO SCH (07:57)
[2018-12-08] MEDS: CARVEDILOL 12.5 MG TAB PO SCH ×2 (07:57→17:05)
[2018-12-08] MEDS: DIVALPROEX DELAY RELEASE 500 MG TAB PO SCH ×2 (07:57→20:06)
[2018-12-08] MEDS: predniSONE 5 MG TAB PO SCH (07:58)
[2018-12-08] MEDS: AMLODIPINE BESYLATE 5 MG TAB PO SCH (07:58)
[2018-12-08] MEDS: MULTIVITAMIN TAB PO SCH (07:58)
[2018-12-08] MEDS: DULOXETINE HCL 60 MG CAP PO SCH (07:58)
[2018-12-08] MEDS: CYANOCOBALAMIN 500 MCG TABLET (VITAMIN B-12) PO SCH (07:58)
[2018-12-08] MEDS: INSULIN ASPART 100 UNITS/ML 3 ML PEN SC SCH ×4 (08:01→21:11)
[2018-12-08 11:49] LABS: BUN Creatinine Ratio 7.8 (10-20); Calcium 9.5 mg/dl (8.5-10.1); Creatinine Clr Calc Pharmacy 55.1 ml/min; Est GFR (African American) 51.5; Est GFR (Non-African American) 44.4; Magnesium 1.5 mg/dl (1.8-2.4); Potassium 4.6 mmol/L (3.5-5.1)
[2018-12-08 11:58] LABS: Phosphorus 2.6 mg/dl (2.5-4.9)
--- NOTE | 2018-12-08 12:00 | Hospitalist Progress Note ---
Date of Service December 08, 2018 Assessment & Plan (1) Acute metabolic encephalopathy: Acute Metabolic Encephalopathy This is a 53 yr old M who has a significant pmh of HTN, HLD, CKD-3, Vasculitis on chronic prednisone therapy, bipolar depression, post traumatic seizure disorder, chronic thrombocytopenia, RBBB who presents to [facility] ED secondary to altered mental status and abdominal pain x 1 day. 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 Started trial of hydrocortisone 50 mg IV 1 dose, and 25 mg every 8 hours Patient continues to improve Will start his usual dose of prednisone as an outpatient Metabolic encephalopathy seems to be cleared Completely back to his baseline Electrolyte imbalance Noted to have low potassium, low magnesium and low phosphate We will supplement and monitor Corrected with supplement Will continue with oral magnesium Low hemoglobin Multifactorial and most likely due to ongoing infection and poor nutrition No acute blood loss Discussed with the patient and the sister Discussed pros and cons of having blood transfusion The patient wanted to have blood transfusion and the sister aggravate Will give 2 units of her blood transfusion with Lasix 40 mg IV in between Status post 2 units of PRBC Hemoglobin pending for today Subclinical hypothyroidism contributing? TSH 10.4, free T4 1.39 Increase levothyroxine from 125 to 150 mcg daily Monitor response, repeat thyroid function tests in 4 to 6 weeks (2) Small bowel obstruction: Repeat KUB: Improving, possible ileus Positive BMs Advance to regular diet and tolerating well Appreciate general surgery service recommendations Small bowel obstruction has been resolved Has had diarrhea C. difficile toxin has been negative but C. difficile gene has been positive Discussed with ID Not infectious and does not require any treatment Denies any problem with bowel Diarrhea resolved (3) Pancreatitis: Presented with abdominal pain and nausea CT scan did show:CT abdomen pelvis revealed acute pancreatitis, trace pleural effusion and trace abdominal pelvic ascites, gallbladder sludge, diverticulosis Patient bowel rest, IV fluids Lipase normalized Diet advanced, now with nectar thick pured diet Patient's CT abdomen showing gallbladder sludge GI consulted, recommend eventual cholecystectomy to prevent recurrence of pancreatitis No acute symptoms of pancreatitis (4) Pneumonia: Chest x-ray concerning for left basilar opacity and pleural effusion possibly consistent with pneumonia Urinalysis does have positive leukoesterase and nitrites, but negative bacteria -Per patient's sister he has history of UTI which presents as confusion Patient does not meet Sepsis Criteria Continue IV antibiotics with Zosyn, obtain mRSA nasal swab if negative will not cover for MRSA given concern for SHIELA Abd U/S Limited to RUQ to r/o gall bladder pathology as etiology of pancreatitis - currently unknown no ETOH or NSAID obtain NH3, blood cultures: Negative Urine culture has been negative Blood cultures have been negative Finished antibiotics Levaquin Symptomatically improved-denies any cough and/or shortness of breath No symptoms of cough no shortness of breath (5) Hyperglycemia: New diagnosis, patient not on oral DM meds or insulin at home Blood glucose running in the 300s A1c 5.9 Possibly from pancreatitis? Glycemic control by pharmacist consulted Insulin Lantus and sliding scale aspart started Continue to monitor (6) Acute renal failure superimposed on stage 3 chronic kidney disease: crea 1.4, continue IV fluids Creatinine went up to 1.7 and is expected to improve (7) Electrolyte abnormality: Has multiple electrolytes abnormalities Low potassium, magnesium and phosphate Will replace and monitor (8) Hypertension: Blood pressure elevated increased Amlodipine to 10 mg p.o. daily On carvedilol Improving, monitor (9) Hypothyroidism: Continue levothyroxine (10) Bipolar disorder: Depakote reduced from 1000 twice daily to 500 mg twice daily per patient's sister's request Seems to be tolerating reduced dose so far Continue Risperidone (11) Thrombocytopenia: Platelet count stable at 61 Chronically runs between 60 and 100 Had peripheral smear done in admission 04/2018 which was unrevealing Platelet remains low at 52 and 43 on 11/22 Plt 150 K No signs of active bleeding (12) Leg edema, right: Not on any coagulation for DVT prophylaxis secondary to thrombocytopenia, possible procedures Check Doppler ultrasound to rule out DVT (13) DVT prophylaxis: SCDS/TEDS Start Lovenox Disposition PT OT ordered Discussed with sister and likely replaced She does not think that the patient is yet ready to be discharged Continue PT OT and await for placement Discussed with his sister yesterday We will discuss with her again tomorrow Subjective 12/04 The patient was seen and examined in the medical floor He has been feeling a lot better Diarrhea seems to be under control and no abdominal pain and/or distention Says he is not yet ready to be discharged 12/05 Patient is seen and examined in medical floor He has been a lot better today Still remains weak and tired and does not want to be discharged until weakness is better 12/06 The patient was seen and examined in medical floor He has been feeling a lot better but still complains to have some weakness Still requiring 2 persons to moving around He is ready to be discharged 12/07 Patient was seen and examined in the presence of the sister He has been feeling a lot better for the last 2 days and denies any significant symptoms except weakness He has been getting physical therapy Noted to have low hemoglobin of 7.9 today 12/08 Patient was seen and examined in medical clinic He has been feeling a lot better for the last 2 days He is a status post 2 unit of blood transfusion and has been feeling stronger Review of Systems Review of Systems: All systems reviewed and are unremarkable except as noted below Constitutional: + weakness Neurologic: Alert, awake but pleasantly confused-mental status is back to his baseline Physical Exam Physical Exam: Lying in bed comfortably Constitutional: well developed, well nourished and + obese; no acute distress and not ill appearing Eyes: PERRL, conjunctivae normal, anicteric sclerae ENMT: external ear and nose normal, oropharynx normal Neck: trachea midline, no thyromegaly Respiratory: normal respiratory effort; no respiratory distress Aus cultation: + diminished lung sounds and + crackles (Minimal bibasilar crackles) Cardiovascular: Rate/Rhythm: regular rate and regular rhythm Heart Sounds: no murmur Gastrointestinal (Abdomen): Inspection/Auscultation: abdomen normal to inspection and normal bowel sounds Percussion/Palpation: abdomen soft; abdomen nontender and no ascites Musculoskeletal: No acute arthritis in any joints Neurologic: moves all extremities; no focal motor deficits Speech / Cognition: + abnormal speech (Garbled speech at times-improved a lot) Motor/Sensory: no tremor Mental status is back to his baseline Lymphatic: no cervical or axillary lymphadenopathy Results & Data Vital Signs (Past 12 Hours) Vital Signs Temp Pulse Resp BP Pulse Ox 12/08/18 07:19 36.8 C 66 18 133/87 96 Laboratory Results Short CBC 12/08/18 Range/Units 11:08 WBC Cancelled Hgb Cancelled Hct Cancelled Plt Count Cancelled [facility] 12/08/18 11:08 Potassium 4.6 Chloride 96 L Carbon Dioxide 29 BUN 13 Creatinine 1.70 H Glucose 130 H Calcium 9.5 Medications Administered Current Inpatient Medications Acetaminophen (Tylenol) 650 mg PO Q4H PRN PRN Reason: Pain or Fever Stop: 12/20/18 15:54 Last Admin: 11/21/18 16:46 Dose: 650 mg Documented by: Amlodipine Besylate (Norvasc) 10 mg PO QAM [facility] Stop: 12/29/18 08:59 Last Admin: 12/08/18 07:58 Dose: 10 mg Documented by: Carvedilol (Coreg) 12.5 mg PO BIDM [facility] Stop: 12/21/18 16:59 Last Admin: 12/08/18 07:57 Dose: 12.5 mg Documented by: Cyanocobalamin (Vitamin B-12) 1,000 mcg PO DAILY [facility] Stop: 12/21/18 11:14 Last Admin: 12/08/18 07:58 Dose: 1,000 mcg Documented by: Dextrose (Dextrose 50%) 25 - 50 ml IV UD PRN; Protocol PRN Reason: Hypoglycemia Protocol Stop: 12/30/18 16:59 Last Admin: 11/30/18 22:30 Dose: 25 ml Documented by: Divalproex Sodium (Depakote Delay Release) 500 mg PO BID [facility] Stop: 12/27/18 08:59 Last Admin: 12/08/18 07:57 Dose: 500 mg Documented by: Duloxetine HCl (Cymbalta) 60 mg PO DAILY [facility] Stop: 12/21/18 11:14 Last Admin: 12/08/18 07:58 Dose: 60 mg Documented by: Enoxaparin Sodium (Lovenox) 40 mg SQ DAILY@1999 [facility] Stop: 01/03/19 19:59 Last Admin: 12/07/18 21:10 Dose: 40 mg Documented by: Glucagon (Glucagen) 1 mg IM UD PRN; Protocol PRN Reason: Hypoglycemia Protocol Stop: 12/30/18 16:59 Glucose (Glucose 40%) 15 - 30 gm PO UD PRN; Protocol PRN Reason: Hypoglycemia Protocol Stop: 12/30/18 16:59 Glucose (Dex4 Glucose) 4 - 8 tabs PO UD PRN; Protocol PRN Reason: Hypoglycemia Protocol Stop: 12/30/18 16:59 Last Admin: 11/30/18 17:27 Dose: 4 tabs Documented by: Sodium Chloride (Nss) 250 mls @ 15 mls/hr IV .[id number] PRN PRN Reason: For Transfusion Stop: 01/06/19 12:23 Imipramine HCl (Tofranil) 25 mg PO TID [facility] Stop: 12/21/18 13:59 Last Admin: 12/08/18 07:56 Dose: 25 mg Documented by: Insulin Aspart (Novolog Flexpen) 0 units SC ACHS [facility]; Protocol Stop: 01/01/19 16:29 Last Admin: 12/08/18 08:01 Dose: 6 units Documented by: Levothyroxine Sodium (Synthroid) 150 mcg PO DAILYBB [facility] Stop: 12/29/18 06:29 Last Admin: 12/08/18 06:25 Dose: 150 mcg Documented by: Magnesium Hydroxide (Milk Of Magnesia) 30 ml PO Q6H PRN PRN Reason: Constipation Stop: 12/29/18 13:54 Miscellaneous (Carbohydrates For Hypoglycemia) 15 - 30 gm PO UD PRN PRN Reason: Hypoglycemia Treatment Stop: 12/30/18 16:59 Last Admin: 11/30/18 16:56 Dose: 15 gm Documented by: Miscellaneous Information (Consult Glycemic Management Pharmacy) 1 ea N/A UD [facility] Stop: 12/28/18 11:41 Multivitamins (Multivitamin Tab) 1 tab PO QAM [facility] Stop: 12/24/18 17:59 Last Admin: 12/08/18 07:58 Dose: 1 tab Documented by: Multivitamins/Minerals (Caltrate Plus) 1 tab PO DAILY [facility] Stop: 12/21/18 11:14 Last Admin: 12/08/18 07:57 Dose: 1 tab Documented by: Ondansetron HCl (Zofran) 4 mg IV Q6H PRN PRN Reason: Nausea Stop: 12/20/18 15:54 Last Admin: 11/20/18 20:53 Dose: 4 mg Documented by: Polyethylene Glycol (Miralax Powder Packet) 17 gm PO DAILY PRN PRN Reason: Constipation Stop: 12/20/18 15:54 Prednisone (Prednisone) 5 mg PO DAILY [facility] Stop: 01/04/19 12:29 Last Admin: 12/08/18 07:58 Dose: 5 mg Documented by: Ranitidine HCl (Zantac) 150 mg PO HS [facility] Stop: 12/21/18 20:59 Last Admin: 12/07/18 21:11 Dose: 150 mg Documented by: Risperidone (Risperdal) 1 mg PO BID [facility] Stop: 12/21/18 11:14 Last Admin: 12/08/18 07:56 Dose: 1 mg Documented by:
[2018-12-08] MEDS: MAGNESIUM OXIDE 400 MG TAB PO SCH ×2 (12:36→20:05)
[2018-12-08 12:49] LABS: Basophils # (auto) 0.05 K/uL (0-0.2); Basophils % (auto) 0.5 %; Eosinophils # (auto) 0.28 K/uL (0-0.5); Eosinophils % (auto) 2.7 %; Hematocrit (blood only) 32.6 % (42-52); Immature Granulocytes # (auto) 0.48 K/uL (0.00-0.02); Immature Granulocytes % (auto) 4.6 %; Lymphocytes # (auto) 2.67 K/uL (1.2-3.4); Lymphocytes % (auto) 25.4 %; Mean Corpuscular Hgb Conc 33.7 g/dL (32-36); Mean Corpuscular Volume 92.4 fL (80-100); Mean Platelet Volume 8.3 fL (7.4-10.4); Monocytes % (auto) 8.6 %; Neutrophils # (auto) 6.14 K/uL (1.4-6.5); Neutrophils % (auto) 58.2 %; Nucleated RBC # (auto) 0.13 K/uL (0-0); Nucleated RBC % (auto) 1.2 %; Platelet Count 185 K/uL (130-400); RDW Coefficient of Variation 17.3 % (11.5-14.5); RDW Standard Deviation 56.6 fL (36.4-46.3); Red Blood Count 3.53 M/uL (4.7-6.1); White Blood Count 10.52 K/uL (4.8-10.8)
--- NOTE | 2018-12-08 13:57 | Pharmacy Report ---
Pharmacy Glycemic Short Note 2 - Date of Service December 08, 2018 - Glycemic Short BSG Results (Last 24 hours): 12/07/18 12/07/18 12/08/18 16:57 20:29 07:47 Glucose POC Glucose 224 H 151 H 149 H 12/08/18 12/08/18 11:08 11:35 Glucose 130 H POC Glucose 138 H OUTPATIENT ANTIDIABETIC REGIMEN: None A1c 5.9% on 11/28/18 ASSESSMENT: BSGs over the previous 24hrs well controlled: [phone] mg/dL. Pt is receiving an average of 20 units of insulin per day * No basal insulin * Bolus/CHO insulin only Pt now on his outpatient dosing of Prednisone 5mg PO daily No changes needed to inpatient regimen PLAN FOR INPATIENT GLYCEMIC CONTROL: * Basal insulin - none indicated * Bolus insulin * NovoLog per scale ACHS or Q6hrs while NPO * Goal Range: Low 110 mg/dL - High 140 mg/dL * Correction Factor: 30 mg/dL/unit * D/C Nutritional / Prandial insulin per carb ratio of 1 unit per 10 grams CHO consumed PLAN FOR DISCHARGE: * A1c = 5.9%; this is in the pre-diabetic range * Consider lifestyle modifications and/or addition of metformin to slow progression to diabetes * Could also consider once daily NPH insulin (20 units daily in AM) if Scr remains elevated
[2018-12-08] MEDS: ENOXAPARIN INJ 40 MG/0.4 ML SYR SQ SCH (20:06)
[2018-12-09] MEDS: LEVOTHYROXINE SODIUM 150 MCG TABLET PO SCH (06:07)
[2018-12-09 06:42] LABS: Hematocrit (blood only) 32.3 % (42-52); Hemoglobin 10.6 g/dL (14.0-18.0); Mean Corpuscular Hgb Conc 32.8 g/dL (32-36); Mean Corpuscular Volume 92.6 fL (80-100); Mean Platelet Volume 8.3 fL (7.4-10.4); Nucleated RBC # (auto) 0.06 K/uL (0-0); Nucleated RBC % (auto) 0.9 %; Platelet Count 152 K/uL (130-400); RDW Coefficient of Variation 17.2 % (11.5-14.5); RDW Standard Deviation 56.3 fL (36.4-46.3); Red Blood Count 3.49 M/uL (4.7-6.1); White Blood Count 6.49 K/uL (4.8-10.8)
[2018-12-09 07:13] LABS: Creatinine Clr Calc Pharmacy 54.8 ml/min; Est GFR (African American) 51.1; Est GFR (Non-African American) 44.1
[2018-12-09] MEDS: risperiDONE 1 MG TABLET PO SCH ×2 (08:12→20:37)
[2018-12-09] MEDS: AMLODIPINE BESYLATE 5 MG TAB PO SCH (08:13)
[2018-12-09] MEDS: MULTIVITAMIN TAB PO SCH (08:13)
[2018-12-09] MEDS: DIVALPROEX DELAY RELEASE 500 MG TAB PO SCH ×2 (08:13→20:37)
[2018-12-09] MEDS: MAGNESIUM OXIDE 400 MG TAB PO SCH ×2 (08:13→20:37)
[2018-12-09] MEDS: CYANOCOBALAMIN 500 MCG TABLET (VITAMIN B-12) PO SCH (08:13)
[2018-12-09] MEDS: CALCIUM 600MG + VIT D 400 IU TAB PO SCH (08:13)
[2018-12-09] MEDS: predniSONE 5 MG TAB PO SCH (08:13)
[2018-12-09] MEDS: DULOXETINE HCL 60 MG CAP PO SCH (08:13)
[2018-12-09] MEDS: CARVEDILOL 12.5 MG TAB PO SCH ×2 (08:13→17:16)
[2018-12-09] MEDS: INSULIN ASPART 100 UNITS/ML 3 ML PEN SC SCH ×4 (08:13→20:38)
[2018-12-09] MEDS: IMIPRAMINE HCL 25 MG TAB PO SCH ×3 (08:13→20:37)
--- NOTE | 2018-12-09 16:23 | Hospitalist Progress Note ---
Date of Service December 09, 2018 Assessment & Plan (1) Acute metabolic encephalopathy: Acute Metabolic Encephalopathy This is a 53 yr old M who has a significant pmh of HTN, HLD, CKD-3, Vasculitis on chronic prednisone therapy, bipolar depression, post traumatic seizure disorder, chronic thrombocytopenia, RBBB who presents to [facility] ED secondary to altered mental status and abdominal pain x 1 day. 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 Started trial of hydrocortisone 50 mg IV 1 dose, and 25 mg every 8 hours Patient continues to improve Will start his usual dose of prednisone as an outpatient Metabolic encephalopathy seems to be cleared Completely back to his baseline Electrolyte imbalance Noted to have low potassium, low magnesium and low phosphate We will supplement and monitor Corrected with supplement Will continue with oral magnesium Low hemoglobin Multifactorial and most likely due to ongoing infection and poor nutrition No acute blood loss Discussed with the patient and the sister Discussed pros and cons of having blood transfusion The patient wanted to have blood transfusion and the sister aggravate Will give 2 units of her blood transfusion with Lasix 40 mg IV in between Status post 2 units of PRBC Hemoglobin went up to 11.0 after 2 units of blood transfusion He has been feeling stronger Subclinical hypothyroidism contributing? TSH 10.4, free T4 1.39 Increase levothyroxine from 125 to 150 mcg daily Monitor response, repeat thyroid function tests in 4 to 6 weeks (2) Small bowel obstruction: Repeat KUB: Improving, possible ileus Positive BMs Advance to regular diet and tolerating well Appreciate general surgery service recommendations Small bowel obstruction has been resolved Has had diarrhea C. difficile toxin has been negative but C. difficile gene has been positive Discussed with ID Not infectious and does not require any treatment Denies any problem with bowel Diarrhea resolved (3) Pancreatitis: Presented with abdominal pain and nausea CT scan did show:CT abdomen pelvis revealed acute pancreatitis, trace pleural effusion and trace abdominal pelvic ascites, gallbladder sludge, diverticulosis Patient bowel rest, IV fluids Lipase normalized Diet advanced, now with nectar thick pured diet Patient's CT abdomen showing gallbladder sludge GI consulted, recommend eventual cholecystectomy to prevent recurrence of pancreatitis No acute symptoms of pancreatitis (4) Pneumonia: Chest x-ray concerning for left basilar opacity and pleural effusion possibly consistent with pneumonia Urinalysis does have positive leukoesterase and nitrites, but negative bacteria -Per patient's sister he has history of UTI which presents as confusion Patient does not meet Sepsis Criteria Continue IV antibiotics with Zosyn, obtain mRSA nasal swab if negative will not cover for MRSA given concern for SHIELA Abd U/S Limited to RUQ to r/o gall bladder pathology as etiology of pancreatitis - currently unknown no ETOH or NSAID obtain NH3, blood cultures: Negative Urine culture has been negative Blood cultures have been negative Finished antibiotics Levaquin Symptomatically improved-denies any cough and/or shortness of breath No symptoms of cough no shortness of breath (5) Hyperglycemia: New diagnosis, patient not on oral DM meds or insulin at home Blood glucose running in the 300s A1c 5.9 Possibly from pancreatitis? Glycemic control by pharmacist consulted Insulin Lantus and sliding scale aspart started Continue to monitor (6) Acute renal failure superimposed on stage 3 chronic kidney disease: crea 1.4, continue IV fluids Creatinine went up to 1.7 and is expected to improve (7) Electrolyte abnormality: Has multiple electrolytes abnormalities Low potassium, magnesium and phosphate Will replace and monitor (8) Hypertension: Blood pressure elevated increased Amlodipine to 10 mg p.o. daily On carvedilol Improving, monitor (9) Hypothyroidism: Continue levothyroxine (10) Bipolar disorder: Depakote reduced from 1000 twice daily to 500 mg twice daily per patient's sister's request Seems to be tolerating reduced dose so far Continue Risperidone (11) Thrombocytopenia: Platelet count stable at 61 Chronically runs between 60 and 100 Had peripheral smear done in admission 04/2018 which was unrevealing Platelet remains low at 52 and 43 on 11/22 Plt 150 K No signs of active bleeding (12) Leg edema, right: Not on any coagulation for DVT prophylaxis secondary to thrombocytopenia, possible procedures Check Doppler ultrasound to rule out DVT (13) DVT prophylaxis: SCDS/TEDS Start Lovenox Disposition PT OT ordered Discussed with sister and likely replaced She does not think that the patient is yet ready to be discharged Continue PT OT and await for placement Discussed with the sister social service involved Still waiting for placement before he can be discharged Discussed with the sister again today Subjective 12/04 The patient was seen and examined in the medical floor He has been feeling a lot better Diarrhea seems to be under control and no abdominal pain and/or distention Says he is not yet ready to be discharged 12/05 Patient is seen and examined in medical floor He has been a lot better today Still remains weak and tired and does not want to be discharged until weakness is better 12/06 The patient was seen and examined in medical floor He has been feeling a lot better but still complains to have some weakness Still requiring 2 persons to moving around He is ready to be discharged 12/07 Patient was seen and examined in the presence of the sister He has been feeling a lot better for the last 2 days and denies any significant symptoms except weakness He has been getting physical therapy Noted to have low hemoglobin of 7.9 today 12/08 Patient was seen and examined in medical clinic He has been feeling a lot better for the last 2 days He is a status post 2 unit of blood transfusion and has been feeling stronger 12/09 Patient was seen and examined in medical floor He remains stable and getting physical therapy Generalized weakness has been improving Denies any symptoms today He has been waiting to be placed Review of Systems Review of Systems: All systems reviewed and are unremarkable except as noted below Constitutional: + weakness Gastrointestinal: no abdominal pain and no bloating Neurologic: Alert, awake but pleasantly confused-mental status is back to his baseline Physical Exam Physical Exam: No apparent distress at rest Constitutional: well developed, well nourished and + obese; no acute distress and not ill appearing Eyes: PERRL, conjunctivae normal, anicteric sclerae ENMT: external ear and nose normal, oropharynx normal Neck: trachea midline, no thyromegaly Respiratory: normal respiratory effort; no respiratory distress Auscultation: + diminished lung sounds and + crackles (Minimal bibasilar crackles) Cardiovascular: Rate/Rhythm: regular rate and regular rhythm Heart Sounds: no murmur Extremities: + edema (Trace edema bilaterally) Gastrointestinal (Abdomen): Inspection/Auscultation: abdomen normal to inspection and normal bowel sounds Percussion/Palpation: abdomen soft; abdomen nontender and no ascites Neurologic: moves all extremities; no focal motor deficits Speech / Cognition: + abnormal speech (Garbled speech at times-improved a lot) Motor/Sensory: no tremor Lymphatic: no cervical or axillary lymphadenopathy Results & Data Vital Signs (Past 12 Hours) Vital Signs Temp Pulse Resp BP Pulse Ox 12/09/18 16:03 36.7 C 64 20 159/64 H 90 12/09/18 07:05 56 L 18 133/79 94 Laboratory Results Short CBC 12/09/18 Range/Units 06: WBC 6.49 (4.8-10.8) K/uL Hgb 10.6 L (14.0-18.0) g/dL Hct 32.3 L (42-52) % Plt Count 152 (130-400) K/uL BMP 12/09/18 06:29 Creatinine 1.71 H Medications Administered Current Inpatient Medications Acetaminophen (Tylenol) 650 mg PO Q4H PRN PRN Reason: Pain or Fever Stop: 12/20/18 15:54 Last Admin: 11/21/18 16:46 Dose: 650 mg Documented by: Amlodipine Besylate (Norvasc) 10 mg PO QAM [facility] Stop: 12/29/18 08:59 Last Admin: 12/09/18 08:13 Dose: 10 mg Documented by: Carvedilol (Coreg) 12.5 mg PO BIDM [facility] Stop: 12/21/18 16:59 Last Admin: 12/09/18 08:13 Dose: 12.5 mg Documented by: Cyanocobalamin (Vitamin B-12) 1,000 mcg PO DAILY [facility] Stop: 12/21/18 11:14 Last Admin: 12/09/18 08:13 Dose: 1,000 mcg Documented by: Dextrose (Dextrose 50%) 25 - 50 ml IV UD PRN; Protocol PRN Reason: Hypoglycemia Protocol Stop: 12/30/18 16:59 Last Admin: 11/30/18 22:30 Dose: 25 ml Documented by: Divalproex Sodium (Depakote Delay Release) 500 mg PO BID [facility] Stop: 12/27/18 08:59 Last Admin: 12/09/18 08:13 Dose: 500 mg Documented by: Duloxetine HCl (Cymbalta) 60 mg PO DAILY [facility] Stop: 12/21/18 11:14 Last Admin: 12/09/18 08:13 Dose: 60 mg Documented by: Enoxaparin Sodium (Lovenox) 40 mg SQ DAILY@1999 [facility] Stop: 01/03/19 19:59 Last Admin: 12/08/18 20:06 Dose: 40 mg Documented by: Glucagon (Glucagen) 1 mg IM UD PRN; Protocol PRN Reason: Hypoglycemia Protocol Stop: 12/30/18 16:59 Glucose (Glucose 40%) 15 - 30 gm PO UD PRN; Protocol PRN Reason: Hypoglycemia Protocol Stop: 12/30/18 16:59 Glucose (Dex4 Glucose) 4 - 8 tabs PO UD PRN; Protocol PRN Reason: Hypoglycemia Protocol Stop: 12/30/18 16:59 Last Admin: 11/30/18 17:27 Dose: 4 tabs Documented by: Sodium Chloride (Nss) 250 mls @ 15 mls/hr IV .[id number] PRN PRN Reason: For Transfusion Stop: 01/06/19 12:23 Imipramine HCl (Tofranil) 25 mg PO TID [facility] Stop: 12/21/18 13:59 Last Admin: 12/09/18 13:50 Dose: 25 mg Documented by: Insulin Aspart (Novolog Flexpen) 0 units SC [facility]; Protocol Stop: 01/01/19 16:29 Last Admin: 12/09/18 12:22 Dose: 4 units Documented by: Levothyroxine Sodium (Synthroid) 150 mcg PO DAILYBB [facility] Stop: 12/29/18 06:29 Last Admin: 12/09/18 06:07 Dose: 150 mcg Documented by: Magnesium Hydroxide (Milk Of Magnesia) 30 ml PO Q6H PRN PRN Reason: Constipation Stop: 12/29/18 13:54 Magnesium Oxide (Mag-Ox) 400 mg PO BID [facility] Stop: 01/07/19 11:59 Last Admin: 12/09/18 08:13 Dose: 400 mg Documented by: Miscellaneous (Carbohydrates For Hypoglycemia) 15 - 30 gm PO UD PRN PRN Reason: Hypoglycemia Treatment Stop: 12/30/18 16:59 Last Admin: 11/30/18 16:56 Dose: 15 gm Documented by: Miscellaneous Information (Consult Glycemic Management Pharmacy) 1 ea N/A UD [facility] Stop: 12/28/18 11:41 Multivitamins (Multivitamin Tab) 1 tab PO QAM [facility] Stop: 12/24/18 17:59 Last Admin: 12/09/18 08:13 Dose: 1 tab Documented by: Multivitamins/Minerals (Caltrate Plus) 1 tab PO DAILY [facility] Stop: 12/21/18 11:14 Last Admin: 12/09/18 08:13 Dose: 1 tab Documented by: Ondansetron HCl (Zofran) 4 mg IV Q6H PRN PRN Reason: Nausea Stop: 12/20/18 15:54 Last Admin: 11/20/18 20:53 Dose: 4 mg Documented by: Polyethylene Glycol (Miralax Powder Packet) 17 gm PO DAILY PRN PRN Reason: Constipation Stop: 12/20/18 15:54 Prednisone (Prednisone) 5 mg PO DAILY [facility] Stop: 01/04/19 12:29 Last Admin: 12/09/18 08:13 Dose: 5 mg Documented by: Ranitidine HCl (Zantac) 150 mg PO HS [facility] Stop: 12/21/18 20:59 Last Admin: 12/08/18 20:05 Dose: 150 mg Documented by: Risperidone (Risperdal) 1 mg PO BID [facility] Stop: 12/21/18 11:14 Last Admin: 12/09/18 08:12 Dose: 1 mg Documented by:
[2018-12-09] MEDS: ENOXAPARIN INJ 40 MG/0.4 ML SYR SQ SCH (20:36)
[2018-12-10] MEDS: LEVOTHYROXINE SODIUM 150 MCG TABLET PO SCH (06:07)
[2018-12-10] MEDS: DIVALPROEX DELAY RELEASE 500 MG TAB PO SCH ×2 (08:00→20:27)
[2018-12-10] MEDS: CALCIUM 600MG + VIT D 400 IU TAB PO SCH (08:00)
[2018-12-10] MEDS: MULTIVITAMIN TAB PO SCH (08:00)
[2018-12-10] MEDS: INSULIN ASPART 100 UNITS/ML 3 ML PEN SC SCH ×4 (08:00→20:27)
[2018-12-10] MEDS: DULOXETINE HCL 60 MG CAP PO SCH (08:00)
[2018-12-10] MEDS: AMLODIPINE BESYLATE 5 MG TAB PO SCH (08:00)
[2018-12-10] MEDS: CARVEDILOL 12.5 MG TAB PO SCH ×2 (08:00→17:38)
[2018-12-10] MEDS: IMIPRAMINE HCL 25 MG TAB PO SCH ×3 (08:01→20:29)
[2018-12-10] MEDS: risperiDONE 1 MG TABLET PO SCH ×2 (08:01→20:29)
[2018-12-10] MEDS: CYANOCOBALAMIN 500 MCG TABLET (VITAMIN B-12) PO SCH (08:01)
[2018-12-10] MEDS: predniSONE 5 MG TAB PO SCH (08:01)
[2018-12-10] MEDS: MAGNESIUM OXIDE 400 MG TAB PO SCH ×2 (08:01→20:27)
--- NOTE | 2018-12-10 16:06 | Hospitalist Progress Note ---
Date of Service December 10, 2018 Assessment & Plan (1) Acute metabolic encephalopathy: Acute Metabolic Encephalopathy This is a 53 yr old M who has a significant pmh of HTN, HLD, CKD-3, Vasculitis on chronic prednisone therapy, bipolar depression, post traumatic seizure disorder, chronic thrombocytopenia, RBBB who presents to [facility] ED secondary to altered mental status and abdominal pain x 1 day. 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 Started trial of hydrocortisone 50 mg IV 1 dose, and 25 mg every 8 hours Patient continues to improve Will start his usual dose of prednisone as an outpatient Metabolic encephalopathy seems to be cleared Completely back to his baseline for the last couple of days Medically stable to be discharged Electrolyte imbalance Noted to have low potassium, low magnesium and low phosphate We will supplement and monitor Corrected with supplement Will continue with oral magnesium Will recheck tomorrow Low hemoglobin Multifactorial and most likely due to ongoing infection and poor nutrition No acute blood loss Discussed with the patient and the sister Discussed pros and cons of having blood transfusion The patient wanted to have blood transfusion and the sister aggravate Will give 2 units of her blood transfusion with Lasix 40 mg IV in between Status post 2 units of PRBC Hemoglobin went up to 11.0 after 2 units of blood transfusion He has been feeling stronger following blood transfusion Subclinical hypothyroidism contributing? TSH 10.4, free T4 1.39 Increase levothyroxine from 125 to 150 mcg daily Monitor response, repeat thyroid function tests in 4 to 6 weeks (2) Small bowel obstruction: Repeat KUB: Improving, possible ileus Positive BMs Advance to regular diet and tolerating well Appreciate general surgery service recommendations Small bowel obstruction has been resolved Denies any bowel and bladder problems Has had diarrhea C. difficile toxin has been negative but C. difficile gene has been positive Discussed with ID Not infectious and does not require any treatment Denies any problem with bowel Diarrhea resolved (3) Pancreatitis: Presented with abdominal pain and nausea CT scan did show:CT abdomen pelvis revealed acute pancreatitis, trace pleural effusion and trace abdominal pelvic ascites, gallbladder sludge, diverticulosis Patient bowel rest, IV fluids Lipase normalized Diet advanced, now with nectar thick pured diet Patient's CT abdomen showing gallbladder sludge GI consulted, recommend eventual cholecystectomy to prevent recurrence of pancreatitis No acute symptoms of pancreatitis (4) Pneumonia: Chest x-ray concerning for left basilar opacity and pleural effusion possibly consistent with pneumonia Urinalysis does have positive leukoesterase and nitrites, but negative bacteria -Per patient's sister he has history of UTI which presents as confusion Patient does not meet Sepsis Criteria Continue IV antibiotics with Zosyn, obtain mRSA nasal swab if negative will not cover for MRSA given concern for SHIELA Abd U/S Limited to RUQ to r/o gall bladder pathology as etiology of pancreatitis - currently unknown no ETOH or NSAID obtain NH3, blood cultures: Negative Urine culture has been negative Blood cultures have been negative Finished antibiotics Levaquin Symptomatically improved-denies any cough and/or shortness of breath No symptoms of cough no shortness of breath (5) Hyperglycemia: New diagnosis, patient not on oral DM meds or insulin at home Blood glucose running in the 300s A1c 5.9 Possibly from pancreatitis? Glycemic control by pharmacist consulted Insulin Lantus and sliding scale aspart started Continue to monitor (6) Acute renal failure superimposed on stage 3 chronic kidney disease: crea 1.4, continue IV fluids Creatinine went up to 1.7 and is expected to improve (7) Electrolyte abnormality: Has multiple electrolytes abnormalities Low potassium, magnesium and phosphate Will replace and monitor (8) Hypertension: Blood pressure elevated increased Amlodipine to 10 mg p.o. daily On carvedilol Improving, monitor (9) Hypothyroidism: Continue levothyroxine (10) Bipolar disorder: Depakote reduced from 1000 twice daily to 500 mg twice daily per patient's sister's request Seems to be tolerating reduced dose so far Continue Risperidone (11) Thrombocytopenia: Platelet count stable at 61 Chronically runs between 60 and 100 Had peripheral smear done in admission 04/2018 which was unrevealing Platelet remains low at 52 and 43 on 11/22 Plt 150 K No signs of active bleeding (12) Leg edema, right: Not on any coagulation for DVT prophylaxis secondary to thrombocytopenia, possible procedures Check Doppler ultrasound to rule out DVT (13) DVT prophylaxis: SCDS/TEDS Start Lovenox Disposition PT OT ordered Discussed with sister and likely replaced She does not think that the patient is yet ready to be discharged Continue PT OT and await for placement Discussed with the sister social service involved Still waiting for placement before he can be discharged Discussed with the sister again today Try to reach the sister to give an update today, message left Care will be continued by Dr. Scott from tomorrow Subjective 12/04 The patient was seen and examined in the medical floor He has been feeling a lot better Diarrhea seems to be under control and no abdominal pain and/or distention Says he is not yet ready to be discharged 12/05 Patient is seen and examined in medical floor He has been a lot better today Still remains weak and tired and does not want to be discharged until weakness is better 12/06 The patient was seen and examined in medical floor He has been feeling a lot better but still complains to have some weakness Still requiring 2 persons to moving around He is ready to be discharged 12/07 Patient was seen and examined in the presence of the sister He has been feeling a lot better for the last 2 days and denies any significant symptoms except weakness He has been getting physical therapy Noted to have low hemoglobin of 7.9 today 12/08 Patient was seen and examined in medical clinic He has been feeling a lot better for the last 2 days He is a status post 2 unit of blood transfusion and has been feeling stronger 12/09 Patient was seen and examined in medical floor He remains stable and getting physical therapy Generalized weakness has been improving Denies any symptoms today He has been waiting to be placed 12/10 Patient was seen and examined in medical floor He has been stable for the last 2 or 3 days Remains generally weak which has been improving with physical therapy Denies any other symptoms Awaiting to be placed Review of Systems Review of Systems: All systems reviewed and are unremarkable except as noted below Constitutional: + weakness Neurologic: + generalized weakness Psychiatric: no irritability and no anxiety Physical Exam Physical Exam: No apparent distress at rest, sitting on a chair outside bed Constitutional: well developed, well nourished and + obese; no acute distress and not ill appearing Eyes: PERRL, conjunctivae normal, anicteric sclerae ENMT: external ear and nose normal, oropharynx normal Neck: trachea midline, no thyromegaly Respiratory: normal respiratory effort; no respiratory distress Auscultation: + diminished lung sounds Cardiovascular: Rate/Rhythm: regular rate and regular rhythm Heart Sounds: no murmur Extremities: + edema (Trace edema bilaterally) Gastrointestinal (Abdomen): Inspection/Auscultation: abdomen normal to inspection and normal bowel sounds Percussion/Palpation: abdomen soft; abdomen nontender and no ascites Musculoskeletal: No acute arthritis in any joint Neurologic: moves all extremities; no focal motor deficits Speech / Cognition: + abnormal speech (Garbled speech at times-improved a lot) Motor /Sensory: no tremor Lymphatic: no cervical or axillary lymphadenopathy Results & Data Vital Signs (Past 12 Hours) Vital Signs Temp Pulse Resp BP Pulse Ox 12/10/18 15:09 36.4 C L 64 18 139/77 92 12/10/18 08:00 62 12/10/18 07:12 36.5 C 55 L 18 114/68 92
[2018-12-10] MEDS: ENOXAPARIN INJ 40 MG/0.4 ML SYR SQ SCH (20:26)
[2018-12-11] MEDS: LEVOTHYROXINE SODIUM 150 MCG TABLET PO SCH (06:14)
[2018-12-11] MEDS: DIVALPROEX DELAY RELEASE 500 MG TAB PO SCH ×2 (07:23→21:28)
[2018-12-11] MEDS: AMLODIPINE BESYLATE 5 MG TAB PO SCH (07:23)
[2018-12-11] MEDS: MULTIVITAMIN TAB PO SCH (07:23)
[2018-12-11] MEDS: CYANOCOBALAMIN 500 MCG TABLET (VITAMIN B-12) PO SCH (07:23)
[2018-12-11] MEDS: MAGNESIUM OXIDE 400 MG TAB PO SCH ×2 (07:23→21:28)
[2018-12-11] MEDS: predniSONE 5 MG TAB PO SCH (07:23)
[2018-12-11] MEDS: risperiDONE 1 MG TABLET PO SCH ×2 (07:23→21:27)
[2018-12-11] MEDS: IMIPRAMINE HCL 25 MG TAB PO SCH ×3 (07:23→21:27)
[2018-12-11] MEDS: DULOXETINE HCL 60 MG CAP PO SCH (07:24)
[2018-12-11] MEDS: CARVEDILOL 12.5 MG TAB PO SCH ×2 (07:24→16:57)
[2018-12-11] MEDS: CALCIUM 600MG + VIT D 400 IU TAB PO SCH (07:24)
--- NOTE | 2018-12-11 08:04 | Pharmacy Report ---
Pharmacy Glycemic Short Note 2 - Date of Service December 11, 2018 - Glycemic Short BSG Results (Last 24 hours): 12/10/18 12/10/18 12/10/18 11:37 15:55 20:05 POC Glucose 150 H 192 H 156 H 12/11/18 07:15 POC Glucose 125 H OUTPATIENT ANTIDIABETIC REGIMEN: None A1c 5.9% on 11/28/18 ASSESSMENT: BSGs over the previous 24hrs have been fairly well controlled: [id number]. He required 21 units of insulin yesterday. Prednisone 5mg continues. No acute fluctuations are anticipated in his insulin requirements. Continue insulin as ordered. PLAN FOR INPATIENT GLYCEMIC CONTROL: * Basal insulin - none indicated * Bolus insulin * NovoLog per scale ACHS or Q6hrs while NPO * Goal Range: Low 110 mg/dL - High 140 mg/dL * Correction Factor: 30 mg/dL/unit * D/C Nutritional / Prandial insulin per carb ratio of 1 unit per 10 grams CHO consumed PLAN FOR DISCHARGE: * A1c = 5.9%; this is in the pre-diabetic range * Consider lifestyle modifications and/or addition of metformin to slow progression to diabetes
[2018-12-11] MEDS: INSULIN ASPART 100 UNITS/ML 3 ML PEN SC SCH ×4 (08:12→21:31)
[2018-12-11] MEDS: ACETAMINOPHEN 325 MG TAB PO PRN (18:41)
--- NOTE | 2018-12-11 20:18 | Hospitalist Progress Note ---
Date of Service December 11, 2018 Assessment & Plan (1) Acute metabolic encephalopathy: Resolved In the setting of my colitis, pneumonia, possible adrenal insufficiency Subclinical hypothyroidism contributing? TSH 10.4, free T4 1.39 Increase levothyroxine from 125 to 150 mcg daily Monitor response, repeat thyroid function tests in 4 to 6 weeks Low hemoglobin Multifactorial and most likely due to ongoing infection and poor nutrition No acute blood loss Given 2 units of packed RBCs Hemoglobin stable around 10 (2) Small bowel obstruction: Resolve with conservative management Has had diarrhea C. difficile toxin has been negative but C. difficile gene has been positive Discussed with ID Not infectious and does not require any treatment Diarrhea resolved (3) Pancreatitis: Presented with abdominal pain and nausea CT scan did show:CT abdomen pelvis revealed acute pancreatitis, trace pleural effusion and trace abdominal pelvic ascites, gallbladder sludge, diverticulosis Patient bowel rest, IV fluids Lipase normalized Resolved Patient's CT abdomen showing gallbladder sludge GI consulted, recommend eventual cholecystectomy to prevent recurrence of pancreatitis (4) Pneumonia: Chest x-ray concerning for left basilar opacity and pleural effusion possibly consistent with pneumonia Urinalysis does have positive leukoesterase and nitrites, but negative bacteria -Per patient's sister he has history of UTI which presents as confusion Patient does not meet Sepsis Criteria Continue IV antibiotics with Zosyn, obtain mRSA nasal swab if negative will not cover for MRSA given concern for SHIELA Abd U/S Limited to RUQ to r/o gall bladder pathology as etiology of pancreatitis - currently unknown no ETOH or NSAID obtain NH3, blood cultures: Negative Finished antibiotics Levaquin -Resolved (5) Hyperglycemia: New diagnosis, patient not on oral DM meds or insulin at home Blood glucose running in the 300s A1c 5.9 Possibly from pancreatitis? Glycemic control by pharmacist consulted Insulin Lantus and sliding scale aspart started Continue to monitor (6) Acute renal failure superimposed on stage 3 chronic kidney disease: crea 1.4, continue IV fluids Creatinine went up to 1.7, monitor (7) Electrolyte abnormality: Has multiple electrolytes abnormalities Low potassium, magnesium and phosphate Replaced (8) Hypertension: Blood pressure elevated increased Amlodipine to 10 mg p.o. daily On carvedilol Improving, monitor (9) Hypothyroidism: Continue levothyroxine (10) Bipolar disorder: Depakote reduced from 1000 twice daily to 500 mg twice daily per patient's sister's request Seems to be tolerating reduced dose so far Continue Risperidone (11) Thrombocytopenia: Platelet count stable at 61 Chronically runs between 60 and 100 Had peripheral smear done in admission 04/2018 which was unrevealing Platelet remains low at 52 and 43 on 11/22 Plt 150 K No signs of active bleeding (12) Leg edema, right: Not on any coagulation for DVT prophylaxis secondary to thrombocytopenia, possible procedures No DVT by ultrasound Disposition Awaiting transition to rehab (13) DVT prophylaxis: SCDS/TEDS Start Lovenox Disposition PT OT ordered Discussed with sister and likely replaced She does not think that the patient is yet ready to be discharged Continue PT OT and await for placement Discussed with the sister social service involved Still waiting for placement before he can be discharged Discussed with the sister again today Try to reach the sister to give an update today, message left Care will be continued by Dr. Scott from tomorrow Subjective Follow-up for encephalopathy, small bowel obstruction Seen resting in bed, comfortable, no distress Oriented x3, answers all questions appropriately Denies abdominal pain, nausea vomiting, tolerating it well Denies shortness of breath No other symptoms Review of Systems Review of Systems: All systems reviewed & are unremarkable except as noted in HPI & below Physical Exam Physical Exam: General- oriented x 3, not in distress, speaks in sentences with no effort or accessory muscle use Eyes- anicteric Neck- no JVD Lungs- clear breath sounds bilaterally Heart- normal rate, regular rhythm; no murmurs Abdomen- normal bowel sounds, nondistended, soft, nontender Extremities- no pretibial edema, no calf tenderness Neuro- alert, oriented x 3; no gross focal neurologic deficits Skin- warm & dry Results & Data Vital Signs (Past 12 Hours) Vital Signs Temp Pulse Resp BP Pulse Ox 12/11/18 18:35 38.4 C H 12/11/18 15:24 37.3 C 72 20 171/87 H 92 Laboratory Results Laboratory Results - last 24 hr 12/11/18 12/11/18 12/11/18 07:15 11:36 16:09 POC Glucose 125 H 146 H 105 H 12/11/18 19:48 POC Glucose 161 H
[2018-12-11] MEDS: ENOXAPARIN INJ 40 MG/0.4 ML SYR SQ SCH (21:26)
[2018-12-11] MEDS ORDERED: SODIUM CHLORIDE 0.9% 500 ML IV ONE (22:54)
[2018-12-11 23:43] LABS: Basophils # (auto) 0.02 K/uL (0-0.2); Basophils % (auto) 0.1 %; Eosinophils # (auto) 0.11 K/uL (0-0.5); Eosinophils % (auto) 0.6 %; Hematocrit (blood only) 29.8 % (42-52); Hemoglobin 9.8 g/dL (14.0-18.0); Immature Granulocytes # (auto) 0.14 K/uL (0.00-0.02); Immature Granulocytes % (auto) 0.8 %; Lymphocytes # (auto) 2.23 K/uL (1.2-3.4); Lymphocytes % (auto) 12.3 %; Mean Corpuscular Hgb Conc 32.9 g/dL (32-36); Mean Corpuscular Volume 93.1 fL (80-100); Monocytes # (auto) 1.27 K/uL (0.11-0.59); Neutrophils # (auto) 14.38 K/uL (1.4-6.5); Neutrophils % (auto) 79.2 %; Platelet Count 113 K/uL (130-400); RDW Coefficient of Variation 17.3 % (11.5-14.5); RDW Standard Deviation 57.9 fL (36.4-46.3); White Blood Count 18.15 K/uL (4.8-10.8)
[2018-12-12 00:01] LABS: Albumin Level 1.8 gm/dl (3.4-5.0); BUN Creatinine Ratio 14.5 (10-20); Calcium 9.2 mg/dl (8.5-10.1); Creatinine Clr Calc Pharmacy 46.2 ml/min; Est GFR (African American) 41.5; Est GFR (Non-African American) 35.8; Magnesium 1.7 mg/dl (1.8-2.4); Potassium 4.8 mmol/L (3.5-5.1)
[2018-12-12 00:14] LABS: Albumin Globulin Ratio 0.4 (0.9-2); Bilirubin,Total 0.4 mg/dl (0.2-1); Globulin 4.4 gm/dl (2.5-4.0); Total Protein 6.2 gm/dl (6.4-8.2)
[2018-12-12] MEDS ORDERED: SODIUM CHLORIDE 0.9% 1000ML 1,000 ML IV ONE ×4 (00:23→06:50)
[2018-12-12] MEDS ORDERED: MAGNESIUM SULFATE / D5W 1 GM/100 ML BAG IV ONE (00:45)
[2018-12-12 04:46] LABS: Appearance Urine Clear (Clear); Bilirubin Urine Negative (Negative); Blood Urine 2+ (Negative); Color Urine Yellow; Glucose Urine UA Negative (Negative); Ketones Urine Negative (Negative); Leukocyte Esterase Urine 3+ (Negative); Nitrite Urine Negative (Negative); Protein Urine 1+ (Negative); Specific Gravity Urine 1.007 (1.000-1.030); Urobilinogen Urine Negative (Negative)
[2018-12-12 05:18] LABS: Bacteria Urine Automated 1+ (Negative); Cast Urine Automated 0 /lpf (0-5); Epithelial Cell Urine Auto 0-5 /lpf (0-5); RBC Urine Automated 0-4 /hpf (0-4); WBC Urine Automated >30 /hpf (0-5)
[2018-12-12 05:47] LABS: Hematocrit (blood only) 33.1 % (42-52); Hemoglobin 10.7 g/dL (14.0-18.0); Mean Corpuscular Hgb Conc 32.3 g/dL (32-36); Mean Corpuscular Volume 94.6 fL (80-100); Mean Platelet Volume 8.9 fL (7.4-10.4); Platelet Count 111 K/uL (130-400); RDW Coefficient of Variation 17.5 % (11.5-14.5); RDW Standard Deviation 58.9 fL (36.4-46.3)
[2018-12-12 06:14] LABS: BUN Creatinine Ratio 14.9 (10-20); Calcium 9.5 mg/dl (8.5-10.1); Creatinine Clr Calc Pharmacy 47.8 ml/min; Est GFR (African American) 43.3; Est GFR (Non-African American) 37.4; Magnesium 2.3 mg/dl (1.8-2.4); Potassium 4.5 mmol/L (3.5-5.1)
[2018-12-12 06:18] LABS: Basophils # (auto) 0.02 K/uL (0-0.2); Basophils % (auto) 0.2 %; Eosinophils # (auto) 0.12 K/uL (0-0.5); Immature Granulocytes # (auto) 0.08 K/uL (0.00-0.02); Immature Granulocytes % (auto) 0.6 %; Lymphocytes # (auto) 1.33 K/uL (1.2-3.4); Lymphocytes % (auto) 10.6 %; Monocytes # (auto) 0.24 K/uL (0.11-0.59); Monocytes % (auto) 1.9 %; Neutrophils # (auto) 10.71 K/uL (1.4-6.5); Neutrophils % (auto) 85.7 %; Polychromasia 1+; Schistocytes Occasional; Spherocytes Occasional; Toxic Granulation 1+
[2018-12-12] MEDS: LEVOTHYROXINE SODIUM 150 MCG TABLET PO SCH (06:32)
[2018-12-12] MEDS: IMIPRAMINE HCL 25 MG TAB PO SCH ×3 (07:08→20:51)
[2018-12-12] MEDS: risperiDONE 1 MG TABLET PO SCH ×2 (07:08→20:51)
[2018-12-12] MEDS: DIVALPROEX DELAY RELEASE 500 MG TAB PO SCH ×2 (07:08→20:50)
[2018-12-12] MEDS: CYANOCOBALAMIN 500 MCG TABLET (VITAMIN B-12) PO SCH (07:08)
[2018-12-12] MEDS: CALCIUM 600MG + VIT D 400 IU TAB PO SCH (07:09)
[2018-12-12] MEDS: predniSONE 5 MG TAB PO SCH (07:09)
[2018-12-12] MEDS: DULOXETINE HCL 60 MG CAP PO SCH (07:09)
[2018-12-12] MEDS: MULTIVITAMIN TAB PO SCH (07:09)
[2018-12-12] MEDS: AMLODIPINE BESYLATE 5 MG TAB PO SCH (07:09)
[2018-12-12] MEDS: MAGNESIUM OXIDE 400 MG TAB PO SCH ×2 (07:09→20:51)
[2018-12-12] MEDS: CARVEDILOL 12.5 MG TAB PO SCH ×2 (07:09→17:16)
--- NOTE | 2018-12-12 07:51 | XRay Report ---
XR chest 1V portable HISTORY: poss sepsis COMPARISON: Chest 11/20/2018. FINDINGS: The heart is normal in size. Slightly elevated interstitium without focal consolidation to suggest pneumonia. This remains unchanged. No pleural effusions. No pneumothorax. Chronic bilateral a nterior shoulder dislocation is again noted. IMPRESSION: 1. No acute process within the chest. 2. Chronic bilateral anterior shoulder dislocation is again noted. Electronically signed by: Asad Terrazas M.D. 12/12/2018 7:48 AM
[2018-12-12] MEDS: INSULIN ASPART 100 UNITS/ML 3 ML PEN SC SCH ×4 (08:11→20:49)
[2018-12-12] MEDS ORDERED: CONSULT PHARMACY STA (08:47)
[2018-12-12] MEDS ORDERED: PIPERACILL/TAZOBAC CONSULT ACTIVE PRN (09:07)
[2018-12-12] MEDS ORDERED: PIPERACILLIN/TAZOBACTAM 4.5 GM in DEXTROSE 5% 100 ML IV ONE (09:15)
[2018-12-12] MEDS ORDERED: SODIUM CHLORIDE 0.9% 1000ML 1,000 ML IV SCH (11:00)
[2018-12-12] MEDS: PIPERACILLIN/TAZOBACTAM 4.5 GM in DEXTROSE 5% 100 ML IV SCH ×2 (13:30→21:40)
--- NOTE | 2018-12-12 15:29 | Pharmacy Report ---
Pharmacy Glycemic Short Note 2 - Date of Service December 12, 2018 - Glycemic Short BSG Results (Last 24 hours): 12/11/18 12/11/18 12/11/18 16:09 19:48 21:30 Glucose POC Glucose 105 H 161 H 161 H 12/11/18 12/12/18 12/12/18 23:28 05:22 07:06 Glucose 137 H 143 H POC Glucose 122 H 12/12/18 11:36 Glucose POC Glucose 117 H OUTPATIENT ANTIDIABETIC REGIMEN: None A1c 5.9% on 11/28/18 ASSESSMENT: BSGs over the previous 24hrs have been fairly well controlled:125,146,105,161,122,117. He required 15 units of insulin yesterday. Prednisone 5mg continues. No acute fluctuations are anticipated in his insulin requirements. Continue insulin as ordered. PLAN FOR INPATIENT GLYCEMIC CONTROL: * Basal insulin - none indicated * Bolus insulin * NovoLog per scale ACHS or Q6hrs while NPO * Goal Range: Low 110 mg/dL - High 140 mg/dL * Correction Factor: 30 mg/dL/unit * D/C Nutritional / Prandial insulin per carb ratio of 1 unit per 10 grams CHO consumed PLAN FOR DISCHARGE: * A1c = 5.9%; this is in the pre-diabetic range * Consider lifestyle modifications and/or addition of metformin to slow progression to diabetes
--- NOTE | 2018-12-12 17:51 | Hospitalist Progress Note ---
Date of Service December 12, 2018 Assessment & Plan (1) UTI (urinary tract infection): Hypotensive last night Calcitonin elevated Urinalysis suggestive of UTI Blood and urine cultures pending Empiric Zosyn IV started Continue to monitor (2) Acute metabolic encephalopathy: Resolved In the setting of pancreatitis, pneumonia, possible adrenal insufficiency Subclinical hypothyroidism contributing? TSH 10.4, free T4 1.39 Increase levothyroxine from 125 to 150 mcg daily Monitor response, repeat thyroid function tests in 4 to 6 weeks Low hemoglobin Multifactorial and most likely due to ongoing infection and poor nutrition No acute blood loss Given 2 units of packed RBCs Hemoglobin stable around 10 (3) Small bowel obstruction: Resolve with conservative management Has had diarrhea C. difficile toxin has been negative but C. difficile gene has been positive Discussed with ID Not infectious and does not require any treatment Diarrhea resolved (4) Pancreatitis: Presented with abdominal pain and nausea CT scan did show:CT abdomen pelvis revealed acute pancreatitis, trace pleural effusion and trace abdominal pelvic ascites, gallbladder sludge, diverticulosis Patient bowel rest, IV fluids Lipase normalized Resolved Patient's CT abdomen showing gallbladder sludge GI consulted, recommend eventual cholecystectomy to prevent recurrence of pancreatitis (5) Pneumonia: Chest x-ray concerning for left basilar opacity and pleural effusion possibly consistent with pneumonia Urinalysis does have positive leukoesterase and nitrites, but negative bacteria -Per patient's sister he has history of UTI which presents as confusion Patient does not meet Sepsis Criteria Continue IV antibiotics with Zosyn, obtain mRSA nasal swab if negative will not cover for MRSA given concern for SHIELA Abd U/S Limited to RUQ to r/o gall bladder pathology as etiology of pancreatitis - currently unknown no ETOH or NSAID obtain NH3, blood cultures: Negative Finished antibiotics Levaquin -Resolved (6) Hyperglycemia: New diagnosis, patient not on oral DM meds or insulin at home Blood glucose running in the 300s A1c 5.9 Possibly from pancreatitis? Glycemic control by pharmacist consulted Insulin Lantus and sliding scale aspart started Continue to monitor (7) Acute renal failure superimposed on stage 3 chronic kidney disease: crea 1.4, continue IV fluids Creatinine went up to 1.9, IV fluids started Monitor (8) Electrolyte abnormality: Has multiple electrolytes abnormalities Low potassium, magnesium and phosphate Replaced (9) Hypertension: Amlodipine to 10 mg p.o. daily On carvedilol Monitor (10) Hypothyroidism: Continue levothyroxine (11) Bipolar disorder: Depakote reduced from 1000 twice daily to 500 mg twice daily per patient's sister's request Seems to be tolerating reduced dose so far Continue Risperidone (12) Thrombocytopenia: Platelet count stable at 61 Chronically runs between 60 and 100 Had peripheral smear done in admission 04/2018 which was unrevealing Platelet remains low at 52 and 43 on 11/22 Plt 150 K No signs of active bleeding (13) Leg edema, right: Not on any coagulation for DVT prophylaxis secondary to thrombocytopenia, possible procedures No DVT by ultrasound Disposition Awaiting transition to rehab (14) DVT prophylaxis: SCDS/TEDS Lovenox Disposition Evaluation management of UTI in progress Subjective Follow-up encephalopathy, small bowel obstruction Noted to be hypotensive overnight, received IV fluid boluses, culture sent Seen resting in bed, comfortable, awake and alert, oriented x3, answers questions appropriately Denies fevers or chills, problems with urination, diarrhea, cough, abdominal pain Denies any symptoms Review of Systems Review of Systems: All systems reviewed & are unremarkable except as noted in HPI & below Physical Exam Physical Exam: General- oriented x 3, not in distress, speaks in sentences with no effort or accessory muscle use Eyes- anicteric Neck- no JVD Lungs- clear BS, no crackles, no rales, no wheezing bilaterally Heart- normal rate, regular rhythm; no murmurs Abdomen- normal bowel sounds, nondistended, soft, nontender Extremities- no pretibial edema, no calf tenderness Neuro- alert, oriented x 3; no gross focal neurologic deficits Skin- warm & dry Results & Data Vital Signs (Past 12 Hours) Vital Signs Temp Pulse Resp BP BP Pulse Ox 12/12/18 14:59 36.8 C 90 18 99/56 L 93 12/12/18 10:58 89 L 12/12/18 06:00 36.8 C 71 20 151/69 H 94 12/12/18 05:50 156/52 H Laboratory Results Laboratory Results - last 24 hr 12/11/18 12/11/18 12/11/18 19:48 21:30 23:28 WBC 18.15 H RBC 3.20 L Hgb 9.8 L Hct 29.8 L MCV 93.1 MCH 30.6 MCHC 32.9 RDW Std Deviation 57.9 H RDW Coeff of Debra 17.3 H Plt Count 113 L MPV 9.0 Immature Gran % (Auto) 0.8 Neut % (Auto) 79.2 Lymph % (Auto) 12.3 Kimble % (Auto) 7.0 Eos % (Auto) 0.6 Baso % (Auto) 0.1 Immature Gran # (Auto) 0.14 H Neut # (Auto) 14.38 H Lymph # (Auto) 2.23 Kimble # (Auto) 1.27 H Eos # (Auto) 0.11 Baso # (Auto) 0.02 Toxic Granulation Polychromasia Spherocytes Schistocytes Sodium Potassium Chloride Carbon Dioxide Anion Gap BUN Creatinine Est Cr Clr Drug Dosing Est GFR ( Amer) Est GFR (Non-Af Amer) BUN/Creatinine Ratio Glucose POC Glucose 161 H 161 H Lactate Calcium Magnesium Total Bilirubin AST ALT Alkaline Phosphatase Total Protein Albumin Globulin Albumin/Globulin Ratio Procalcitonin Urine Color Urine Appearance Urine pH Ur Specific Marble Urine Protein Urine Glucose (UA) Urine Ketones Urine Blood Urine Nitrite Urine Bilirubin Urine Urobilinogen Ur Leukocyte Esterase Urine WBC (Auto) Urine RBC (Auto) U Hyaline Cast (Auto) U Epithel Cells (Auto) Urine Bacteria (Auto) 12/11/18 12/11/18 12/12/18 23:28 23:28 04:30 WBC RBC Hgb Hct MCV MCH MCHC RDW Std Deviation RDW Coeff of Debra Plt Count MPV Immature Gran % (Auto) Neut % (Auto) Lymph % (Auto) Kimble % (Auto) Eos % (Auto) Baso % (Auto) Immature Gran # (Auto) Neut # (Auto) Lymph # (Auto) Kimble # (Auto) Eos # (Auto) Baso # (Auto) Toxic Granulation Polychromasia Spherocytes Schistocytes Sodium 130 L Potassium 4.8 Chloride 97 L Carbon Dioxide 29 Anion Gap 4.0 BUN 29 H Creatinine 2.03 H Est Cr Clr Drug Dosing 46.2 Est GFR ( Amer) 41.5 Est GFR (Non-Af Amer) 35.8 BUN/Creatinine Ratio 14.5 Glucose 137 H POC Glucose Lactate 0.9 Calcium 9.2 Magnesium 1.7 L Total Bilirubin 0.4 AST 15 ALT 11 L Alkaline Phosphatase 87 Total Protein 6.2 L Albumin 1.8 L Globulin 4.4 H Albumin/Globulin Ratio 0.4 L Procalcitonin Urine Color Yellow Urine Appearance Clear Urine pH 7.0 Ur Specific Marble 1.007 Urine Protein 1+ H Urine Glucose (UA) Negative Urine Ketones Negative Urine Blood 2+ H Urine Nitrite Negative Urine Bilirubin Negative Urine Urobilinogen Negative Ur Leukocyte Esterase 3+ H Urine WBC (Auto) >30 H Urine RBC (Auto) 0-4 U Hyaline Cast (Auto) 0 U Epithel Cells (Auto) 0-5 Urine Bacteria (Auto) 1+ H 12/12/18 12/12/18 12/12/18 05:22 05:22 05:22 WBC 12.50 H RBC 3.50 L Hgb 10.7 L Hct 33.1 L MCV 94.6 MCH 30.6 MCHC 32.3 RDW Std Deviation 58.9 H RDW Coeff of Debra 17.5 H Plt Count 111 L MPV 8.9 Immature Gran % (Auto) 0.6 Neut % (Auto) 85.7 Lymph % (Auto) 10.6 Kimble % (Auto) 1.9 Eos % (Auto) 1.0 Baso % (Auto) 0.2 Immature Gran # (Auto) 0.08 H Neut # (Auto) 10.71 H Lymph # (Auto) 1.33 Kimble # (Auto) 0.24 Eos # (Auto) 0.12 Baso # (Auto) 0.02 Toxic Granulation 1+ Polychromasia 1+ Spherocytes Occasional Schistocytes Occasional Sodium 134 L Potassium 4.5 Chloride 100 Carbon Dioxide 29 Anion Gap 5.0 BUN 29 H Creatinine 1.96 H Est Cr Clr Drug Dosing 47.8 Est GFR ( Amer) 43.3 Est GFR (Non-Af Amer) 37.4 BUN/Creatinine Ratio 14.9 Glucose 143 H POC Glucose Lactate Calcium 9.5 Magnesium 2.3 Total Bilirubin AST ALT Alkaline Phosphatase Total Protein Albumin Globulin Albumin/Globulin Ratio Procalcitonin 17.40 H Urine Color Urine Appearance Urine pH Ur Specific Marble Urine Protein Urine Glucose (UA) Urine Ketones Urine Blood Urine Nitrite Urine Bilirubin Urine Urobilinogen Ur Leukocyte Esterase Urine WBC (Auto) Urine RBC (Auto) U Hyaline Cast (Auto) U Epithel Cells (Auto) Urine Bacteria (Auto) 12/12/18 12/12/18 12/12/18 07:06 11:36 16:36 WBC RBC Hgb Hct MCV MCH MCHC RDW Std Deviation RDW Coeff of Debra Plt Count MPV Immature Gran % (Auto) Neut % (Auto) Lymph % (Auto) Kimble % (Auto) Eos % (Auto) Baso % (Auto) Immature Gran # (Auto) Neut # (Auto) Lymph # (Auto) Kimble # (Auto) Eos # (Auto) Baso # (Auto) Toxic Granulation Polychromasia Spherocytes Schistocytes Sodium Potassium Chloride Carbon Dioxide Anion Gap BUN Creatinine Est Cr Clr Drug Dosing Est GFR ( Amer) Est GFR (Non-Af Amer) BUN/Creatinine Ratio Glucose POC Glucose 122 H 117 H 117 H Lactate Calcium Magnesium Total Bilirubin AST ALT Alkaline Phosphatase Total Protein Albumin Globulin Albumin/Globulin Ratio Procalcitonin Urine Color Urine Appearance Urine pH Ur Specific Marble Urine Protein Urine Glucose (UA) Urine Ketones Urine Blood Urine Nitrite Urine Bilirubin Urine Urobilinogen Ur Leukocyte Esterase Urine WBC (Auto) Urine RBC (Auto) U Hyaline Cast (Auto) U Epithel Cells (Auto) Urine Bacteria (Auto)
[2018-12-12] MEDS: ENOXAPARIN INJ 40 MG/0.4 ML SYR SQ SCH (20:49)
[2018-12-13] MEDS: PIPERACILLIN/TAZOBACTAM 4.5 GM in DEXTROSE 5% 100 ML IV SCH ×3 (06:04→21:25)
[2018-12-13] MEDS: LEVOTHYROXINE SODIUM 150 MCG TABLET PO SCH (06:05)
[2018-12-13] MEDS: INSULIN ASPART 100 UNITS/ML 3 ML PEN SC SCH ×4 (08:06→21:07)
[2018-12-13] MEDS: DIVALPROEX DELAY RELEASE 500 MG TAB PO SCH ×2 (08:07→21:16)
[2018-12-13] MEDS: IMIPRAMINE HCL 25 MG TAB PO SCH ×3 (08:07→21:17)
[2018-12-13] MEDS: CARVEDILOL 12.5 MG TAB PO SCH ×2 (08:07→17:28)
[2018-12-13] MEDS: risperiDONE 1 MG TABLET PO SCH ×2 (08:07→21:16)
[2018-12-13] MEDS: DULOXETINE HCL 60 MG CAP PO SCH (08:07)
[2018-12-13] MEDS: CYANOCOBALAMIN 500 MCG TABLET (VITAMIN B-12) PO SCH (08:07)
[2018-12-13] MEDS: AMLODIPINE BESYLATE 5 MG TAB PO SCH (08:07)
[2018-12-13] MEDS: MAGNESIUM OXIDE 400 MG TAB PO SCH ×2 (08:07→21:17)
[2018-12-13] MEDS: CALCIUM 600MG + VIT D 400 IU TAB PO SCH (08:07)
[2018-12-13] MEDS: predniSONE 5 MG TAB PO SCH (08:07)
[2018-12-13] MEDS: MULTIVITAMIN TAB PO SCH (08:07)
[2018-12-13 08:10] LABS: Hematocrit (blood only) 27.8 % (42-52); Hemoglobin 9.2 g/dL (14.0-18.0); Mean Corpuscular Hgb Conc 33.1 g/dL (32-36); Nucleated RBC # (auto) 0.02 K/uL (0-0); Nucleated RBC % (auto) 0.2 %; RDW Coefficient of Variation 17.3 % (11.5-14.5); RDW Standard Deviation 58.8 fL (36.4-46.3); Red Blood Count 2.99 M/uL (4.7-6.1); White Blood Count 7.94 K/uL (4.8-10.8)
[2018-12-13 08:32] LABS: BUN Creatinine Ratio 15.1 (10-20); Calcium 9.1 mg/dl (8.5-10.1); Creatinine Clr Calc Pharmacy 40.9 ml/min; Est GFR (African American) 35.9; Potassium 4.6 mmol/L (3.5-5.1)
[2018-12-13] MEDS ORDERED: ATROPINE SULFATE 0.1 MG/ML 10ML SYR IV ONE (08:32)
[2018-12-13 08:34] LABS: Basophils # (auto) 0.01 K/uL (0-0.2); Basophils % (auto) 0.1 %; Eosinophils # (auto) 0.27 K/uL (0-0.5); Eosinophils % (auto) 3.4 %; Immature Granulocytes # (auto) 0.04 K/uL (0.00-0.02); Immature Granulocytes % (auto) 0.5 %; Lymphocytes # (auto) 0.73 K/uL (1.2-3.4); Lymphocytes % (auto) 9.2 %; Mean Platelet Volume 8.4 fL (7.4-10.4); Monocytes # (auto) 0.44 K/uL (0.11-0.59); Monocytes % (auto) 5.5 %; Neutrophils # (auto) 6.45 K/uL (1.4-6.5); Neutrophils % (auto) 81.3 %; Platelet Count 67 K/uL (130-400); Platelet Estimate Decreased (Normal)
--- NOTE | 2018-12-13 11:50 | Pharmacy Report ---
Glycemic Control Progress Note - Date of Service December 13, 2018 - Scope Glycemic Pharmacist consulted for glycemic control to write orders per [facility] inpatient glycemic control protocol. - Objective Accuchecks BSG(last 24 hours):: 12/12/18 12/12/18 12/13/18 16:36 20:09 07:31 Glucose POC Glucose 117 H 146 H 137 H 12/13/18 12/13/18 07:48 11:28 Glucose 126 H POC Glucose 228 H HbA1c:: Hemoglobin A1c 5.9 % (4.5-5.6) H 11/28/18 10:20 - Recent Pertinent Medications The patient is currently receiving: * Basal insulin: NONE * Correctional Insulin: Novolog Correction per scale ACHS Goal Range: Low 110 mg/dL - High 140 mg/dL Correction Factor: 30 mg/dL/unit * Prandial insulin: Per carb ratio of 1 unit per 10 grams CHO consumed - Outpatient Anti-Diabetic Meds NONE - Assessment & Plan ASSESSMENT: * See progress note from 11/28/18 for more background info, in short: * Pt receiving SQ basal bolus insulin regimen for hyperglycemia secondary to prednisone 5 mg daily * Patient is currently receiving an average of 20 units of insulin per day * 0 units of basal insulin * 20 units of prandial/correctional insulin * BSGs ranging 117 - 146 mg/dl over the past 24hrs * Changes needed to insulin regimen: * AM Fasting BSG = 137 mg/dl. This is in goal range for patient based on inpatient targets and co-morbidities. No basal insulin currently. * Post-prandial BSGs have been well controlled. Patient's blood sugar at lunch was 228 mg/dL which is EXTREMELY odd for him. Blood sugars are typically not this elevated. Monitor and consider addition of Lantus if necessary. * Total daily dose = 20 units PLAN FOR INPATIENT GLYCEMIC CONTROL: * Continuing correction factor of 30 mg/dl/unit * Continuing carb ratio of 1 unit per 10 grams CHO consumed * Continuing goal range to Low 110 mg/dL - High 140 mg/dL RECOMMENDATIONS FOR DISCHARGE: * Patient's HbA1C at home is extremely well controlled. Consider discharging patient without treatment. If necessary could consider metformin. * Please note that the plan above was derived based on current level of insulin resistance and hospital stress. These recommendations are appropriate for inpatient admission only. Plan of care upon discharge will need to be reassessed to avoid potential outpatient hypo/hyperglycemia. Thank you.
--- NOTE | 2018-12-13 12:19 | Infectious Disease Consult ---
Date of Consultation December 13, 2018 Assessment & Plan (1) Gram negative septicemia: likely related to gu source. agree with zosyn pending additional cultures, would repeat blood cultures x 2. (2) UTI (urinary tract infection): History of Present Illness Attending Physician: Stewart Scott MD pt admitted on 11/20 with pancreatitis, had gi and surgery eval for sbo, no intervention. now with uti and gnr sepsis, ID consulted for + blood cultures. had been afebrile until 12/11 - fever 38.4, cultures obtained, blood cultures gnr 2/2 sets, ID pending, placed on zosyn 12/12, remains on this. wbc 7.9, was 18 on 12/11 creat 2.2, cxr negative, UA >30 wbc, +1 bacteria, previous UA on 11/20 1-5 wbc with no bacteria. previous urine culture negative, blood cultures in ER negative as well. pt oob to chair, answers few questions. states he feels fatigue, no abd pain, no n/v/d/abd pain, no cp, sob, cough, solo. no gu symptoms. tolerating abx well. Allergies Allergy/AdvReac Type Severity Reaction Status Date / Time aspirin Allergy Unknown Nothing Verified 04/18/18 14:45 with Aspirin. bacitracin Allergy Unknown Rash Verified 04/18/18 14:45 Cephalosporins Allergy Unknown Unknown Verified 04/18/18 14:45 doxycycline Allergy Unknown . Verified 04/18/18 14:45 furosemide Allergy Unknown Oral Verified 04/18/18 14:45 solution - rash levofloxacin Allergy Unknown Rash Verified 04/18/18 14:45 neomycin Allergy Unknown Rash Verified 04/18/18 14:45 polymyxin B Allergy Unknown Rash Verified 04/18/18 14:45 Sulfa (Sulfonamide Allergy Unknown Bactrim - Verified 04/18/18 14:45 Antibiotics) rash. moxifloxacin Allergy Unknown Unverified 04/18/18 14:45 sulfamethoxazole Allergy Unknown Unverified 04/18/18 14:58 [From Bactrim] trimethoprim [From Bactrim] Allergy Unknown Unverified 04/18/18 14:58 Home Medications Home Medications Medication Instructions Recorded Confirmed Type ascorbic acid (vitamin C) [Vitamin 1,000 mg PO DAILY 02/10/18 11/20/18 History C] divalproex 1,000 mg PO BID 02/10/18 11/20/18 History imipramine HCl 25 mg PO TID 02/10/18 11/20/18 History levothyroxine 125 mcg PO QAM 02/10/18 11/20/18 History carvedilol 12.5 mg PO BIDM 04/18/18 11/20/18 History cyanocobalamin (vitamin B-12) 1,000 mcg PO DAILY 04/18/18 11/20/18 History [Vitamin B-12] omega [id number] oil [Fish Oil] 1,000 mg PO DAILY 04/18/18 11/20/18 History ranitidine HCl 150 mg PO HS 04/18/18 11/20/18 History risperidone 1 mg PO BID 04/18/18 11/20/18 History vitamin E 400 unit PO DAILY 04/18/18 11/20/18 History prednisone 5 mg PO DAILY 04/23/18 11/20/18 History calcium carbonate-vitamin D3 1 tab PO DAILY 11/20/18 11/20/18 History [Calcium 600 + D(3)] duloxetine [Cymbalta] 60 mg PO DAILY 11/20/18 11/20/18 History Patient History Medical History Hypothyroidism (Chronic) Hyperprolactinemia (Chronic) Vasculitis (Chronic) CKD (chronic kidney disease), stage III (Chronic) ALKA (iron deficiency anemia) (Chronic) Post-traumatic seizures (Chronic) Hypertension (Chronic) Chronic pain (Chronic) Bipolar disorder (Chronic) RBBB (Chronic) Hyperlipidemia (Chronic) JHOANA (obstructive sleep apnea) (Chronic) does not use cpap or bipap Reflux esophagitis (Chronic) Goiter (Chronic) 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) Hypertension (Inactive) Surgical History History of fasciotomy (Chronic) History of tracheostomy (Chronic) History of total right hip arthroplasty (Chronic) Family History Other Family history unobtainable due to patient's condition Social History Preferred Language: Armenian Communication Ability: Unable Caul Puller Required: No Beliefs That Will Affect Care: None Current Living Situation: Family Current Living Situation Comment: Staying in shed at sister's house Other Information That Helps Us Care for You: No Feels Safe at Home: Declines to Answer Smoking Status: Never smoker Tobacco Type: cigarettes and smokeless tobacco ; Do You Dip or Chew Tobacco: No ; Second Hand Exposure: No ; Tobacco Cessation Education Requested by Patient: No Hx Alcohol Use: No Hx Substance Use: No Review of Systems Review of Systems: All systems reviewed & are unremarkable except as noted in HPI & below Physical Exam Constitutional: WD/WN, vitals as above Eyes: PERRL, conjunctivae normal, anicteric sclerae ENMT: external ear and nose normal, oropharynx normal Neck: normal visual inspection Respiratory: normal respiratory effort, lungs clear to auscultation Cardiovascular: RRR, no murmur, no edema Gastrointestinal (Abdomen): normal bowel sounds, soft, nontender, no hepatosplenomegaly Musculoskeletal: no cyanosis or clubbing, extremities motor strength 5/5 Psychiatric: A+Ox3, euthymic affect Results & Data Vital Signs (Past 12 Hours) Vital Signs Temp Pulse Resp BP Pulse Ox 12/13/18 07:16 37.3 C 56 L 18 85/58 L 93 Laboratory Results Microbiology 12/12/18 04:30 Urine,Clean Catch Urine Culture - Preliminary Escherichia coli 12/12/18 07:48 Blood Aerobic Blood Culture - Preliminary Gram negative bacilli 12/12/18 07:59 Blood Aerobic Blood Culture - Preliminary Gram negative bacilli 12/12/18 07:59 Blood Anaerobic Blood Culture - Preliminary Gram negative bacilli 11/20/18 17:50 Blood Aerobic Blood Culture - Final No growth in Aerobic bottle after 5 days. 11/20/18 17:50 Blood Anaerobic Blood Culture - Final 11/20/18 17:31 Blood Aerobic Blood Culture - Final No growth in Aerobic bottle after 5 days. 11/20/18 17:31 Blood Anaerobic Blood Culture - Final No growth in Anaerobic bottle after 5 days. 11/20/18 21:48 Urine,Clean Catch Urine Culture - Final No growth - less than 1,000 colonies/mL. PG Care Time/CCT Total # of Minutes Spent Total Time Spent with Patient: Total time spent is greater than 50% in coordination of care (as documented) at patient's floor/unit and/or counseling patient:
--- NOTE | 2018-12-13 17:17 | Hospitalist Progress Note ---
Date of Service December 13, 2018 Assessment & Plan (1) UTI (urinary tract infection): BP improved Blood cultures: gram negative bacilli Empiric Zosyn IV started Continue to monitor ID consulted (2) Acute metabolic encephalopathy: Resolved In the setting of pancreatitis, pneumonia, possible adrenal insufficiency Subclinical hypothyroidism contributing? TSH 10.4, free T4 1.39 Increase levothyroxine from 125 to 150 mcg daily Monitor response, repeat thyroid function tests in 4 to 6 weeks Low hemoglobin Multifactorial and most likely due to ongoing infection and poor nutrition No acute blood loss Given 2 units of packed RBCs Hemoglobin stable around 10 (3) Small bowel obstruction: Resolve with conservative management Has had diarrhea C. difficile toxin has been negative but C. difficile gene has been positive Discussed with ID Not infectious and does not require any treatment Diarrhea resolved (4) Pancreatitis: Presented with abdominal pain and nausea CT scan did show:CT abdomen pelvis revealed acute pancreatitis, trace pleural effusion and trace abdominal pelvic ascites, gallbladder sludge, diverticulosis Patient bowel rest, IV fluids Lipase normalized Resolved Patient's CT abdomen showing gallbladder sludge GI consulted, recommend eventual cholecystectomy to prevent recurrence of pancreatitis (5) Pneumonia: Chest x-ray concerning for left basilar opacity and pleural effusion possibly consistent with pneumonia Urinalysis does have positive leukoesterase and nitrites, but negative bacteria -Per patient's sister he has history of UTI which presents as confusion Patient does not meet Sepsis Criteria Continue IV antibiotics with Zosyn, obtain mRSA nasal swab if negative will not cover for MRSA given concern for SHIELA Abd U/S Limited to RUQ to r/o gall bladder pathology as etiology of pancreatitis - currently unknown no ETOH or NSAID obtain NH3, blood cultures: Negative Finished antibiotics Levaquin -Resolved (6) Hyperglycemia: New diagnosis, patient not on oral DM meds or insulin at home Blood glucose running in the 300s A1c 5.9 Possibly from pancreatitis? Glycemic control by pharmacist consulted Insulin Lantus and sliding scale aspart started Continue to monitor (7) Acute renal failure superimposed on stage 3 chronic kidney disease: crea 1.4, continue IV fluids Creatinine 2.29 start IV NSS Monitor (8) Electrolyte abnormality: Has multiple electrolytes abnormalities Low potassium, magnesium and phosphate Replaced (9) Hypertension: Amlodipine to 10 mg p.o. daily On carvedilol Monitor (10) Hypothyroidism: Continue levothyroxine (11) Bipolar disorder: Depakote reduced from 1000 twice daily to 500 mg twice daily per patient's sister's request Seems to be tolerating reduced dose so far Continue Risperidone (12) Thrombocytopenia: Platelet count stable 60k Chronically runs between 60 and 100 Had peripheral smear done in admission 04/2018 which was unrevealing no signs of bleeding hold Lovenox (13) Leg edema, right: Not on any coagulation for DVT prophylaxis secondary to thrombocytopenia, possible procedures No DVT by ultrasound Disposition pending (14) DVT prophylaxis: SCDS/TEDS HOLD Lovenox for low plt Disposition Evaluation management of UTI in progress Subjective ff up for UTI seen resting in chair, comfortable states he feels ok overall denies urinary symptoms, abdominal pain, nausea appetite is good denies fever/chills denies other symptoms Review of Systems Review of Systems: All systems reviewed & are unremarkable except as noted in HPI & below Physical Exam Physical Exam: General- oriented x 3, not in distress, speaks in sentences with no effort or accessory muscle use Eyes- anicteric Neck- no JVD Lungs- clear BS BL, no rales/wheezes Heart- normal rate, regular rhythm; no murmurs Abdomen- normal bowel sounds, nondistended, soft, nontender Extremities- no pretibial edema, no calf tenderness Neuro- alert, oriented x 3; no gross focal neurologic deficits Skin- warm & dry Results & Data Vital Signs (Past 12 Hours) Vital Signs Temp Pulse Resp BP BP Pulse Ox 12/13/18 15:00 36.4 C L 18 102/69 91 12/13/18 07:16 37.3 C 56 L 18 85/58 L 93 Laboratory Results Laboratory Results - last 24 hr 12/12/18 12/13/18 12/13/18 20:09 07:31 07:48 WBC 7.94 RBC 2.99 L Hgb 9.2 L Hct 27.8 L MCV 93.0 MCH 30.8 MCHC 33.1 RDW Std Deviation 58.8 H RDW Coeff of Debra 17.3 H Plt Count 67 L MPV 8.4 Immature Gran % (Auto) 0.5 Neut % (Auto) 81.3 Lymph % (Auto) 9.2 [place] % (Auto) 5.5 Eos % (Auto) 3.4 Baso % (Auto) 0.1 Immature Gran # (Auto) 0.04 H Neut # (Auto) 6.45 Lymph # (Auto) 0.73 L [place] # (Auto) 0.44 Eos # (Auto) 0.27 Baso # (Auto) 0.01 Absolute Nucleated RBC 0.02 H Nucleated RBC % (auto) 0.2 Platelet Estimate Decreased L Sodium Potassium Chloride Carbon Dioxide Anion Gap BUN Creatinine Est Cr Clr Drug Dosing Est GFR ( Amer) Est GFR (Non-Af Amer) BUN/Creatinine Ratio Glucose POC Glucose 146 H 137 H Calcium 12/13/18 12/13/18 12/13/18 07:48 11:28 16:36 WBC RBC Hgb Hct MCV MCH MCHC RDW Std Deviation RDW Coeff of Debra Plt Count MPV Immature Gran % (Auto) Neut % (Auto) Lymph % (Auto) [place] % (Auto) Eos % (Auto) Baso % (Auto) Immature Gran # (Auto) Neut # (Auto) Lymph # (Auto) [place] # (Auto) Eos # (Auto) Baso # (Auto) Absolute Nucleated RBC Nucleated RBC % (auto) Platelet Estimate Sodium 132 L Potassium 4.6 Chloride 100 Carbon Dioxide 25 Anion Gap 7.0 BUN 35 H Creatinine 2.29 H D Est Cr Clr Drug Dosing 40.9 Est GFR ( Amer) 35.9 Est GFR (Non-Af Amer) 31.0 BUN/Creatinine Ratio 15.1 Glucose 126 H POC Glucose 228 H 245 H Calcium 9.1
[2018-12-13] MEDS ORDERED: SODIUM CHLORIDE 0.9% 1000ML 1,000 ML IV SCH ×2 (17:29→17:30)
[2018-12-13] MEDS ORDERED: HYDROCORTISONE SOD SUCCINATE 100 MG/2 ML VIAL IV STA (17:29)
[2018-12-13] MEDS ORDERED: HYDROCORTISONE SOD 100 MG in SYRINGE 0 ML IV STA (17:34)
[2018-12-13] MEDS ORDERED: ATROPINE SULFATE 0.1 MG/ML 5ML SYR IV STA (18:38)
[2018-12-13 18:40] LABS: Hematocrit (blood only) 24.4 % (42-52); Mean Corpuscular Volume 93.5 fL (80-100); RDW Coefficient of Variation 17.1 % (11.5-14.5); RDW Standard Deviation 58.5 fL (36.4-46.3); Red Blood Count 2.61 M/uL (4.7-6.1); White Blood Count 8.55 K/uL (4.8-10.8)
[2018-12-13] MEDS ORDERED: SODIUM CHLORIDE 0.9% 1000ML 1,000 ML IV ONE (18:40)
[2018-12-13 18:57] LABS: Mean Corpuscular Hgb Conc 32.8 g/dL (32-36); Mean Platelet Volume 8.3 fL (7.4-10.4); Platelet Count 55 K/uL (130-400)
[2018-12-13 18:58] LABS: BUN Creatinine Ratio 17.4 (10-20); Calcium 8.5 mg/dl (8.5-10.1); Creatinine Clr Calc Pharmacy 37.9 ml/min; Est GFR (African American) 32.8; Est GFR (Non-African American) 28.3; Potassium 4.6 mmol/L (3.5-5.1)
[2018-12-13 19:05] LABS: Basophils # (auto) 0.01 K/uL (0-0.2); Basophils % (auto) 0.1 %; Dohle Bodies 1+; Eosinophils % (auto) 2.3 %; Immature Granulocytes # (auto) 0.05 K/uL (0.00-0.02); Immature Granulocytes % (auto) 0.6 %; Lymphocytes # (auto) 0.83 K/uL (1.2-3.4); Lymphocytes % (auto) 9.7 %; Monocytes # (auto) 0.39 K/uL (0.11-0.59); Monocytes % (auto) 4.6 %; Neutrophils # (auto) 7.07 K/uL (1.4-6.5); Neutrophils % (auto) 82.7 %
--- NOTE | 2018-12-13 19:11 | Critical Care Consultation ---
Date of Consultation December 13, 2018 Assessment & Plan (1) Admitted to intensive care unit: Reason critically ill: Mr. Tigre Becerril is a 53 y/o male who presents to ICU as transfer from [facility] for hypotension. He has been hospitalized since 11/20 after presenting with pancreatitis and altered mental status. Neuro: Reduced consciousness from hypotension, but no hypotension after transfer. Hx Bipolar disorder treated with Depakote 500mg BID and Risperidone. Treated during hospital stay for acute metabolic encephalopathy which resolved. Ammonia level for encephalopathy Cardiac/Vascular Hx of HTN and RBBB, hyperlipidemia after mother passing away yesterday in hospital, history concerning for takotsubo cardiomyopathy, will order Trop Hemodynamics improved after transfer to ICU HTN continue with Amlodipine 10mg. On Coreg as well, okay to continue History of vasculitis on chronic prednisone Will order lactate for possible poor end organ perfusion Pulm: Was treated for pneumonia over hospital course with levaquin. GI: treated for pancreatitis during hospital course with conservative management treated for SBO during hospital course with conservative management Had diarrhea that resovled during stay with c-diff + gene but negative toxin. ID was consulted and did not recommend treatment as not active infection. Ammonia level for encephalopathy Will repeat lipase Renal/Lytes Hx CKD stage 3 with SHIELA on CKD during stay Has required multiple replacements over stay for Low potassium, magnesium and phosphate will trend monitor I&O No rubin as UTI of E. coli and bacteremia with gram negative bacilli concerning for UTI bacteremia. Endo No history of DM but elevated sugars here, A1C 5.9 Hx Hypothyorid, recent had synthroid increase to 150mcg from 125mcg concern for adrenal insufficiency from chronic prednisone will order random cortisol Heme Hx of chronic anemia thought from poor nutrition Hx of chronic thrombocytopenia Did receive 2 units pRBCs on 12/11 Will order PT, PTT, INR, Fibrinogen to ensure no current DIC trend CBC ID Currently with E. coli UTI and also gram negative bacilli. Treated with Zosyn. Repeat blood cultures, discontinue rubin Was treated for pneumonia here with a course of Levaquin. Lines: PIV DVT: No chemical in setting of thrombocytopenia. Resuscitation status: Full Code. (2) Gram negative septicemia: (3) UTI (urinary tract infection): (4) Leg edema, right: (5) Small bowel obstruction: (6) Hyperglycemia: (7) Electrolyte abnormality: (8) Acute renal failure superimposed on stage 3 chronic kidney disease: (9) Pancreatitis: (10) Acute metabolic encephalopathy: (11) History of fasciotomy: (12) History of tracheostomy: (13) Hypothyroidism: (14) Hyperprolactinemia: (15) Vasculitis: (16) Acute pancreatitis: (17) SHIELA (acute kidney injury): (18) Hyperkalemia: (19) Hip pain, right: (20) UTI (urinary tract infection): (21) Ambulatory dysfunction: (22) Thrombocytopenia: (23) Osteoarthritis: (24) Drug overdose: (25) Schizoaffective disorder, bipolar type: (26) DVT prophylaxis: (27) Altered mental status: (28) Post-traumatic seizures: (29) Hypertension: (30) Chronic pain: (31) History of total right hip arthroplasty: (32) CKD (chronic kidney disease), stage III: (33) ALKA (iron deficiency anemia): (34) Bipolar disorder: (35) RBBB: (36) Hyperlipidemia: (37) JHOANA (obstructive sleep apnea): (38) Reflux esophagitis: (39) Goiter: Supervising Physician Co-Signing Physician Notes Dr. Melgar was resident physician during care of patient. I separately evaluated patient for jackson portions of the history and the exam. I was present during the critical portion of medical decision making, and I discussed the case with the resident. I generally agree with the findings and plan. Patient is critically ill due to severe sepsis secondary to gram-negative bacteremia most likely secondary to E. coli UTI. Awaiting speciation on Zosyn will continue. I discussed the case with the patient's sister who is his power of collections attorney. Patient lacks capacity secondary to decreased mental status secondary to history of traumatic brain injury and current commitment current encephalopathy: Metabolic. She gave consent via telephone for central venous access, the patient's IV has currently infiltrated so we will proceed with central venous access. He is also been consented for arterial line. Of note the patient's mother 2 days ago from sepsis and multisystem organ failure in this hospital. I have personally spent 50 minutes of critical care time in the direct management of this patient. This is a life/limb threatening event. This includes time spent evaluating patient, direct bedside care, chart review, placing orders, interpretation of diagnostic studies, discussion with consultants, patient, and/or family members regarding treatment decisions, as well as other required patient management activities. This time is exclusive of all separately billable procedures, and teaching time and separate from and in addition to any other critical care service time. I had a discussion with the patient's sister was also the power of collections attorney. She is very adamant about no restraints including when and if a central line or PICC line is placed. I informed her we would not use wrist restraints, she was in different with regards to possible minute use. We are opting for a PICC line for less opportunity for him to be able to reach with either hand. In discussing long-term goals of care in event of cardiac arrest he has multiple medical issues and should he suffer a cardiac arrest in the rather statistically unlikely event that we had return of circulation he would likely have subsequent injuries and likely have worsening clinical condition which would preclude his discharge to home which is living in a garage/shed at his sister's residence. She informed me that the ultimate goal for the patient would be subsequent discharge home in a semi-independent living situation at her residence. Acc ordingly we will take the patient DO NOT RESUSCITATE DO NOT INTUBATE in event of cardiac arrest. History of Present Illness Reason for Consultation: Hypotension Attending Physician: Stewart Scott MD History of Present Illness Caveat: History limited by reduced consciousness. Mr. Tigre Becerril is a 53 y/o male with multiple co-morbidities (HTN, HLD, CKD-3, Vasculitis on chronic prednisone therapy, bipolar depression, post traumatic seizure disorder, chronic thrombocytopenia, RBBB) with code purple who was transferred to ICU for hypotension. Of note, his mother just in this hospital yesterday. He originally presented for abdominal pain and altered mental status. Found to have UTI E. Coli and bacteremia with gram negative bacilli. Allergies Allergy/AdvReac Type Severity Reaction Status Date / Time aspirin Allergy Unknown Nothing Verified 04/18/18 14:45 with Aspirin. bacitracin Allergy Unknown Rash Verified 04/18/18 14:45 Cephalosporins Allergy Unknown Unknown Verified 04/18/18 14:45 doxycycline Allergy Unknown . Verified 04/18/18 14:45 furosemide Allergy Unknown Oral Verified 04/18/18 14:45 solution - rash levofloxacin Allergy Unknown Rash Verified 04/18/18 14:45 neomycin Allergy Unknown Rash Verified 04/18/18 14:45 polymyxin B Allergy Unknown Rash Verified 04/18/18 14:45 Sulfa (Sulfonamide Allergy Unknown Bactrim - Verified 04/18/18 14:45 Antibiotics) rash. moxifloxacin Allergy Unknown Unverified 04/18/18 14:45 sulfamethoxazole Allergy Unknown Unverified 04/18/18 14:58 [From Bactrim] trimethoprim [From Bactrim] Allergy Unknown Unverified 04/18/18 14:58 Home Medications Home Medications Medication Instructions Recorded Confirmed Type ascorbic acid (vitamin C) [Vitamin 1,000 mg PO DAILY 02/10/18 11/20/18 History C] divalproex 1,000 mg PO BID 02/10/18 11/20/18 History imipramine HCl 25 mg PO TID 02/10/18 11/20/18 History levothyroxine 125 mcg PO QAM 02/10/18 11/20/18 History carvedilol 12.5 mg PO BIDM 04/18/18 11/20/18 History cyanocobalamin (vitamin B-12) 1,000 mcg PO DAILY 04/18/18 11/20/18 History [Vitamin B-12] omega [id number] oil [Fish Oil] 1,000 mg PO DAILY 04/18/18 11/20/18 History ranitidine HCl 150 mg PO HS 04/18/18 11/20/18 History risperidone 1 mg PO BID 04/18/18 11/20/18 History vitamin E 400 unit PO DAILY 04/18/18 11/20/18 History prednisone 5 mg PO DAILY 04/23/18 11/20/18 History calcium carbonate-vitamin D3 1 tab PO DAILY 11/20/18 11/20/18 History [Calcium 600 + D(3)] duloxetine [Cymbalta] 60 mg PO DAILY 11/20/18 11/20/18 History Patient History Medical History Hypothyroidism (Chronic) Hyperprolactinemia (Chronic) Vasculitis (Chronic) CKD (chronic kidney disease), stage III (Chronic) ALKA (iron deficiency anemia) (Chronic) Post-traumatic seizures (Chronic) Hypertension (Chronic) Chronic pain (Chronic) Bipolar disorder (Chronic) RBBB (Chronic) Hyperlipidemia (Chronic) JHOANA (obstructive sleep apnea) (Chronic) does not use cpap or bipap Reflux esophagitis (Chronic) Goiter (Chronic) 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) Hypertension (Inactive) Surgical History History of fasciotomy (Chronic) History of tracheostomy (Chronic) History of total right hip arthroplasty (Chronic) Family History Other Family history unobtainable due to patient's condition Social History Preferred Language: [place] Communication Ability: Unable Feather Shaper Required: No Beliefs That Will Affect Care: None Current Living Situation: Family Current Living Situation Comment: Staying in shed at sister's house Other Information That Helps Us Care for You: No Feels Safe at Home: Declines to Answer Smoking Status: Never smoker Tobacco Type: cigarettes and smokeless tobacco ; Do You Dip or Chew Tobacco: No ; Second Hand Exposure: No ; Tobacco Cessation Education Requested by Patient: No Hx Alcohol Use: No Hx Substance Use: No Review of Systems Review of Systems: Unobtainable due to reduced consciousness Physical Exam Constitutional: + morbidly obese Eyes: + eyelid abnormality Neck: trachea midline Respiratory: normal respiratory effort; no respiratory distress and does not use accessory muscles Auscultation: + diminished lung sounds Cardiovascular: Rate/Rhythm: regular rate and regular rhythm Musculoskeletal: Head/Neck/Chest: normocephalic and head atraumatic Neurologic: moves all extremities Results & Data Vital Signs (Past 12 Hours) Vital Signs Temp Pulse Pulse Resp BP BP Pulse Ox 12/13/18 18:35 53 L 95/56 L 12/13/18 18:04 35.3 C L 12/13/18 18:03 54 L 12/13/18 17:28 48 L 70/43 L 12/13/18 15:00 36.4 C L 18 102/69 91 12/13/18 07:16 37.3 C 56 L 18 85/58 L 93 PG Care Time/CCT Critical Care Time: Yes Total Critical Care Time: 50 Resident Activity Tracking Resident Involvement: Resident Care Provided Care Provided: Adult Hospital Medicine (ICU) (1) UTI (urinary tract infection) Hematuria presence: without hematuria Urinary tract infection type: site unspecified Qualified Code(s): N39.0 - Urinary tract infection, site not specified (2) Altered mental status Altered mental status type: unspecified Qualified Code(s): R41.82 - Altered mental status, unspecified (3) Acute pancreatitis Acute pancreatitis complication: unspecified Pancreatitis type: unspecified pancreatitis type Qualified Code(s): K85.90 - Acute pancreatitis without necrosis or infection, unspecified
[2018-12-13 20:33] LABS: Phosphorus 3.1 mg/dl (2.5-4.9); Prealbumin 8.5 mg/dl (20-40); Troponin I < 0.015 ng/ml (0-0.045)
[2018-12-13 20:40] LABS: Fibrinogen 463 mg/dl (184-400); INR 1.2 (0.9-1.1); Partial Thromboplastin Ratio 1.1; Partial Thromboplastin Time 30.2 Seconds (21.0-31.0); Prothrombin Time 11.9 Seconds (9.0-12.0)
[2018-12-13] MEDS ORDERED: LACTOBACILLUS ACIDOPHILUS (FLORANEX) TAB PO SCH (21:00)
[2018-12-13] MEDS: NORMOSOL-R 1,000 ML IV SCH (21:26)
[2018-12-13 22:27] LABS: Hematocrit (blood only) 28.4 % (42-52); Hemoglobin 9.4 g/dL (14.0-18.0)
[2018-12-14] MEDS: HYDROCORTISONE SOD 50 MG in SYRINGE 0 ML IV SCH ×3 (02:53→17:20)
[2018-12-14 05:15] LABS: Hematocrit (blood only) 28.1 % (42-52); Hemoglobin 9.2 g/dL (14.0-18.0); Mean Corpuscular Hgb Conc 32.7 g/dL (32-36); Mean Corpuscular Volume 94.6 fL (80-100); RDW Coefficient of Variation 17.1 % (11.5-14.5); Red Blood Count 2.97 M/uL (4.7-6.1); White Blood Count 6.66 K/uL (4.8-10.8)
[2018-12-14 05:17] LABS: Mean Platelet Volume 8.7 fL (7.4-10.4); Platelet Count 60 K/uL (130-400)
[2018-12-14] MEDS: LEVOTHYROXINE SODIUM 150 MCG TABLET PO SCH (05:20)
[2018-12-14] MEDS: NORMOSOL-R 1,000 ML IV SCH ×3 (05:20→21:35)
[2018-12-14] MEDS: PIPERACILLIN/TAZOBACTAM 4.5 GM in DEXTROSE 5% 100 ML IV SCH (05:21)
[2018-12-14 05:43] LABS: Basophils # (auto) 0.01 K/uL (0-0.2); Basophils % (auto) 0.2 %; Echinocytes 1+; Eosinophils # (auto) 0.01 K/uL (0-0.5); Eosinophils % (auto) 0.2 %; Immature Granulocytes # (auto) 0.02 K/uL (0.00-0.02); Immature Granulocytes % (auto) 0.3 %; Lymphocytes # (auto) 0.48 K/uL (1.2-3.4); Lymphocytes % (auto) 7.2 %; Monocytes # (auto) 0.09 K/uL (0.11-0.59); Monocytes % (auto) 1.4 %; Neutrophils # (auto) 6.05 K/uL (1.4-6.5); Neutrophils % (auto) 90.7 %
[2018-12-14 05:48] LABS: BUN Creatinine Ratio 18.8 (10-20); Blood Urea Nitrogen 39 mg/dl (7-18); Calcium 8.7 mg/dl (8.5-10.1); Carbon Dioxide 26 mmol/L (21-32); Chloride 105 mmol/L (98-107); Creatinine Clr Calc Pharmacy 46.2 ml/min; Est GFR (African American) 40.8; Est GFR (Non-African American) 35.2; Glucose 167 mg/dl (70-99)
[2018-12-14 05:57] LABS: Phosphorus 4.5 mg/dl (2.5-4.9); Troponin I < 0.015 ng/ml (0-0.045)
[2018-12-14 06:27] LABS: Sodium 136 mmol/L (136-145)
[2018-12-14] MEDS ORDERED: IMIPENEM/CILASTATIN CONSULT ACTIVE PRN (07:27)
[2018-12-14] MEDS ORDERED: IMIPENEM/CILASTATIN SODIUM 500 MG in DEXTROSE 5% 100 ML IV SCH (08:00)
--- NOTE | 2018-12-14 08:43 | Critical Care Progress Note ---
Date of Service December 14, 2018 Assessment & Plan (1) Admitted to intensive care unit: Reason critically ill: Mr. Tigre Becerril is a 53 y/o male who presents to ICU as transfer from located within [facility] for hypotension. He has been hospitalized since 11/20 after presenting with pancreatitis and altered mental status. Neuro: Had reduced consciousness from hypotension requiring transfer, but no hypotension after transfer. Hx Bipolar disorder treated with Depakote 500mg BID and Risperidone. Still confused, follows commands, but not oriented to time or place. Ammonia level for encephalopathy was negative Cardiac/Vascular Hx of HTN and RBBB, hyperlipidemia after mother passing away yesterday in hospital, history concerning for takotsubo cardiomyopathy but Trop negative Hemodynamics improved after transfer to ICU HTN continue with Amlodipine 10mg. On Coreg as well, okay to continue History of vasculitis on chronic prednisone lactate negative yesterday after transfer, ordered for possible poor end organ perfusion from hypotensive event; also current bactermia Pulm: Was treated for pneumonia over hospital course with levaquin. Currently requiring supplemental O2 NC GI: treated for pancreatitis during hospital course with conservative management * repeat Lipase ordered on transfer resulted with value 1457, which is 3x upper limit of normal concerning for pancreatitis * however, repeat lipase this morning was 306 and normal; he tolerated his breakfast without any complaints of abdominal pain; unsure of etiology treated for SBO during hospital course with conservative management Had diarrhea that resolved during stay with c-diff + gene but negative toxin. ID was consulted and did not recommend treatment as not active infection. Ammonia level for encephalopathy - low <10 Renal/Lytes Hx CKD stage 3 with SHIELA on CKD during stay * creatinine improved today to 2.06 Has required multiple replacements over stay for Low potassium, magnesium and phosphate will trend monitor I&O Tara rubin as UTI of E. coli and bacteremia with gram negative bacilli concerning for UTI bacteremia. E. coli sensitivities with resistance to Zosyn, Amp, unasyn, 1st gen cephalosporin and concerns for EBL producing organism; will put on Levaquin 750mg q48 (renal dosing) Endo No history of DM but elevated sugars here, A1C 5.9 Hx Hypothyorid, recent had synthroid increase to 150mcg from 125mcg concern for adrenal insufficiency from chronic prednisone * random cortisol level was 125.14 yesterday, which was ordered after transfer Heme Hx of chronic anemia thought from poor nutrition Hx of chronic thrombocytopenia Did receive 2 units pRBCs on 12/11 Will order PT, PTT, INR, Fibrinogen to ensure no current DIC which were all supportive ruling out DIC trend CBC ID Currently with E. coli UTI and also gram negative bacilli. Treated with Zosyn prior but resistant on susceptibilities today * Bacteremia positive for E. coli sensitivities with resistance to Zosyn, Amp, unasyn, 1st gen cephalosporin and concerns for EBL producing organism; will put on Levaquin 750mg q48 (renal dosing). Pharmacy consult placed for dosing recs. Repeat blood cultures including fungal smear pending - fungal source needed as chronic prednisone therapy causing concern for immunosuppression discontinue caryn Was treated for pneumonia here with a course of Levaquin. He did have Levaquin listed on allergy list as causing rash, but since tolerated course of Levaquin during current visit, okay to proceed. Lines: PIV 22G right shoulder; 20G left AC; PICC line right upper extremity DVT: No chemical in setting of thrombocytopenia. SCDs ordered Resuscitation status: DNR/DNI. (2) Gram negative septicemia: (3) UTI (urinary tract infection): (4) Leg edema, right: (5) Small bowel obstruction: (6) Hyperglycemia: (7) Electrolyte abnormality: (8) Acute renal failure superimposed on stage 3 chronic kidney disease: (9) Pancreatitis: (10) Acute metabolic encephalopathy: (11) History of fasciotomy: (12) History of tracheostomy: (13) Hypothyroidism: (14) Hyperprolactinemia: (15) Vasculitis: (16) Acute pancreatitis: (17) SHIELA (acute kidney injury): (18) Hyperkalemia: (19) Hip pain, right: (20) Ambulatory dysfunction: (21) Thrombocytopenia: (22) Osteoarthritis: (23) Drug overdose: (24) Schizoaffective disorder, bipolar type: (25) DVT prophylaxis: (26) Altered mental status: (27) Post-traumatic seizures: (28) Hypertension: (29) Chronic pain: (30) History of total right hip arthroplasty: (31) CKD (chronic kidney disease), stage III: (32) ALKA (iron deficiency anemia): (33) Bipolar disorder: (34) RBBB: (35) Hyperlipidemia: (36) JHOANA (obstructive sleep apnea): (37) Reflux esophagitis: (38) Goiter: Subjective Caveat - History limited by: Altered Mental Status No acute events overnight. History of removing IV access lines. Sister did not want restraints placed on patient per her wishes. He does not complain of any abdominal pain this morning. He tolerated his breakfast without difficulty. He does not complain of abdominal pain, chest pain, shortness of breath, nausea. Review of Systems Review of Systems: All systems reviewed & are unremarkable except as noted in HPI & below Physical Exam Constitutional: + morbidly obese, + altered mental status, cooperative and comfortable Neck: trachea midline Respiratory: normal respiratory effort; no respiratory distress and does not use accessory muscles Auscultation: + diminished lung sounds Cardiovascular: Rate/Rhythm: regular rate and regular rhythm Gastrointestinal (Abdomen): Percussion/Palpation: abdomen soft; abdomen nontender and no guarding Musculoskeletal: Head/Neck/Chest: normocephalic and head atraumatic Skin: + dry skin Neurologic: moves all extremities, awake and + confused; no focal motor d eficits follows commands Psychiatric: Orientation: alert and oriented to person; + not oriented to place (answered he was in [place]) and + not oriented to time (unable to answer then gave several answers of years in late ) Results & Data Vital Signs (Past 12 Hours) Vital Signs Temp Pulse BP Pulse Ox 12/14/18 03:30 64 97 12/14/18 03:15 59 L 97 12/14/18 03:00 63 94/46 L 98 12/14/18 02:45 57 L 98 12/14/18 02:30 58 L 98 12/14/18 02:15 56 L 104/59 L 98 12/14/18 02:00 53 L 92/59 L 98 12/14/18 01:45 49 L 99/58 L 98 12/14/18 01:30 53 L 94/63 L 98 12/14/18 01:15 51 L 103/61 99 12/14/18 01:00 50 L 103/61 99 12/14/18 00:45 48 L 114/63 99 12/14/18 00:43 34.5 C L 12/14/18 00:36 51 L 100/73 100 12/14/18 00:30 47 L 100 12/14/18 00:15 48 L 107/68 99 12/14/18 00:00 51 L 104/68 99 12/13/18 23:45 50 L 101/70 99 12/13/18 23:30 55 L 115/69 100 12/13/18 23:15 54 L 107/74 100 12/13/18 23:00 61 109/72 96 12/13/18 22:45 50 L 114/61 96 12/13/18 22:30 57 L 111/68 96 12/13/18 22:15 58 L 109/69 100 12/13/18 22:09 35.5 C L 55 L 115/70 94 12/13/18 21:46 58 L 146/90 H 12/13/18 21:30 58 L 128/71 100 12/13/18 21:15 51 L 97/65 L 100 12/13/18 21:00 57 L 96/67 L 100 12/13/18 20:45 58 L 97/66 L 100 Laboratory Results Laboratory Results - last 24 hr 12/13/18 12/13/18 12/13/18 11:28 16:36 17:30 WBC RBC Hgb Hct MCV MCH MCHC RDW Std Deviation RDW Coeff of Debra Plt Count MPV Immature Gran % (Auto) Neut % (Auto) Lymph % (Auto) [place] % (Auto) Eos % (Auto) Baso % (Auto) Immature Gran # (Auto) Neut # (Auto) Lymph # (Auto) [place] # (Auto) Eos # (Auto) Baso # (Auto) Dohle Bodies Echinocytes PT INR APTT PTT Ratio Fibrinogen Sodium Potassium Chloride Carbon Dioxide Anion Gap BUN Creatinine Est Cr Clr Drug Dosing Est GFR ( Amer) Est GFR (Non-Af Amer) BUN/Creatinine Ratio Glucose POC Glucose 228 H 245 H 155 H Lactate Calcium Phosphorus Ammonia Troponin I Prealbumin Lipase Random Cortisol Nasal Screen MRSA (PCR) Blood Type Antibody Screen Antibody Identification 12/13/18 12/13/18 12/13/18 18:24 18:24 18:24 WBC 8.55 RBC 2.61 L Hgb 8.0 L Hct 24.4 L MCV 93.5 MCH 30.7 MCHC 32.8 RDW Std Deviation 58.5 H RDW Coeff of Debra 17.1 H Plt Count 55 L MPV 8.3 Immature Gran % (Auto) 0.6 Neut % (Auto) 82.7 Lymph % (Auto) 9.7 [place] % (Auto) 4.6 Eos % (Auto) 2.3 Baso % (Auto) 0.1 Immature Gran # (Auto) 0.05 H Neut # (Auto) 7.07 H Lymph # (Auto) 0.83 L [place] # (Auto) 0.39 Eos # (Auto) 0.20 Baso # (Auto) 0.01 Dohle Bodies 1+ Echinocytes PT INR APTT PTT Ratio Fibrinogen Sodium 129 L Potassium 4.6 Chloride 98 Carbon Dioxide 25 Anion Gap 7.0 BUN 43 H Creatinine 2.47 H Est Cr Clr Drug Dosing 37.9 Est GFR ( Amer) 32.8 Est GFR (Non-Af Amer) 28.3 BUN/Creatinine Ratio 17.4 Glucose 132 H POC Glucose Lactate 1.4 Calcium 8.5 Phosphorus Ammonia Troponin I Prealbumin Lipase Random Cortisol Nasal Screen MRSA (PCR) Blood Type Antibody Screen Antibody Identification 12/13/18 12/13/18 12/13/18 18:58 19:23 19:54 WBC RBC Hgb Hct MCV MCH MCHC RDW Std Deviation RDW Coeff of Debra Plt Count MPV Immature Gran % (Auto) Neut % (Auto) Lymph % (Auto) [place] % (Auto) Eos % (Auto) Baso % (Auto) Immature Gran # (Auto) Neut # (Auto) Lymph # (Auto) [place] # (Auto) Eos # (Auto) Baso # (Auto) Dohle Bodies Echinocytes PT 11.9 INR 1.2 H APTT 30.2 PTT Ratio 1.1 Fibrinogen 463 H Sodium Potassium Chloride Carbon Dioxide Anion Gap BUN Creatinine Est Cr Clr Drug Dosing Est GFR ( Amer) Est GFR (Non-Af Amer) BUN/Creatinine Ratio Glucose POC Glucose 198 H Lactate Calcium Phosphorus Ammonia Troponin I Prealbumin Lipase Random Cortisol Nasal Screen MRSA (PCR) Negative Blood Type Antibody Screen Antibody Identification 12/13/18 12/13/18 12/13/18 19:54 19:54 19:54 WBC RBC Hgb Hct MCV MCH MCHC RDW Std Deviation RDW Coeff of Debra Plt Count MPV Immature Gran % (Auto) Neut % (Auto) Lymph % (Auto) [place] % (Auto) Eos % (Auto) Baso % (Auto) Immature Gran # (Auto) Neut # (Auto) Lymph # (Auto) [place] # (Auto) Eos # (Auto) Baso # (Auto) Dohle Bodies Echinocytes PT INR APTT PTT Ratio Fibrinogen Sodium Potassium Chloride Carbon Dioxide Anion Gap BUN Creatinine Est Cr Clr Drug Dosing Est GFR ( Amer) Est GFR (Non-Af Amer) BUN/Creatinine Ratio Glucose POC Glucose Lactate Calcium Phosphorus 3.1 Ammonia < 10.0 L Troponin I < 0.015 Prealbumin 8.5 L Lipase 1457 H Random Cortisol Nasal Screen MRSA (PCR) Blood Type O Negative Antibody Screen POSITIVE A Antibody Identification Anti-D 12/13/18 12/13/18 12/13/18 19:54 21:00 22:20 WBC RBC Hgb 9.4 L Hct 28.4 L MCV MCH MCHC RDW Std Deviation RDW Coeff of Debra Plt Count MPV Immature Gran % (Auto) Neut % (Auto) Lymph % (Auto) [place] % (Auto) Eos % (Auto) Baso % (Auto) Immature Gran # (Auto) Neut # (Auto) Lymph # (Auto) [place] # (Auto) Eos # (Auto) Baso # (Auto) Dohle Bodies Echinocytes PT INR APTT PTT Ratio Fibrinogen Sodium Potassium Chloride Carbon Dioxide Anion Gap BUN Creatinine Est Cr Clr Drug Dosing Est GFR ( Amer) Est GFR (Non-Af Amer) BUN/Creatinine Ratio Glucose POC Glucose 113 H Lactate Calcium Phosphorus Ammonia Troponin I Prealbumin Lipase Random Cortisol 125.14 Nasal Screen MRSA (PCR) Blood Type Antibody Screen Antibody Identification 12/14/18 12/14/18 12/14/18 04:48 04:48 07:33 WBC 6.66 RBC 2.97 L Hgb 9.2 L Hct 28.1 L MCV 94.6 MCH 31.0 MCHC 32.7 RDW Std Deviation 58.0 H RDW Coeff of Debra 17.1 H Plt Count 60 L MPV 8.7 Immature Gran % (Auto) 0.3 Neut % (Auto) 90.7 Lymph % (Auto) 7.2 [place] % (Auto) 1.4 Eos % (Auto) 0.2 Baso % (Auto) 0.2 Immature Gran # (Auto) 0.02 Neut # (Auto) 6.05 Lymph # (Auto) 0.48 L [place] # (Auto) 0.09 L Eos # (Auto) 0.01 Baso # (Auto) 0.01 Dohle Bodies Echinocytes 1+ PT INR APTT PTT Ratio Fibrinogen Sodium 136 D Potassium 5.0 Chloride 105 Carbon Dioxide 26 Anion Gap 5.0 BUN 39 H Creatinine 2.06 H D Est Cr Clr Drug Dosing 46.2 Est GFR ( Amer) 40.8 Est GFR (Non-Af Amer) 35.2 BUN/Creatinine Ratio 18.8 Glucose 167 H POC Glucose 175 H Lactate Calcium 8.7 Phosphorus 4.5 D Ammonia Troponin I < 0.015 Prealbumin Lipase 306 Random Cortisol Nasal Screen MRSA (PCR) Blood Type Antibody Screen Antibody Identification Medications Administered Acetaminophen (Tylenol) 650 mg PO Q4H PRN PRN Reason: Pain or Fever Stop: 12/20/18 15:54 Last Admin: 12/11/18 18:41 Dose: 650 mg Documented by: [id number] Admin: 11/21/18 16:46 Dose: 650 mg Documented by: [id number] Carvedilol (Coreg) 12.5 mg PO BIDM NIC Stop: 12/21/18 16:59 Last Admin: 12/13/18 17:28 Dose: Not Given Documented by: [id number] Admin: 12/13/18 08:07 Dose: Not Given Documented by: [id number] Admin: 12/12/18 17:16 Dose: 12.5 mg Documented by: [id number] Admin: 12/12/18 07:09 Dose: 12.5 mg Documented by: [id number] Admin: 12/11/18 16:57 Dose: 12.5 mg Documented by: [id number] Admin: 12/11/18 07:24 Dose: 12.5 mg Documented by: [id number] Admin: 12/10/18 17:38 Dose: 12.5 mg Documented by: [id number] Admin: 12/10/18 08:00 Dose: 12.5 mg Documented by: [id number] Admin: 12/09/18 17:16 Dose: 12.5 mg Documented by: [id number] Admin: 12/09/18 08:13 Dose: 12.5 mg Documented by: [id number] Admin: 12/08/18 17:05 Dose: 12.5 mg Documented by: [id number] Admin: 12/08/18 07:57 Dose: 12.5 mg Documented by: [id number] Admin: 12/07/18 17:01 Dose: 12.5 mg Documented by: [id number] Admin: 12/07/18 08:41 Dose: Not Given Documented by: [id number] Admin: 12/06/18 17:51 Dose: 12.5 mg Documented by: [id number] Admin: 12/06/18 08:47 Dose: 12.5 mg Documented by: [id number] Admin: 12/05/18 18:07 Dose: Not Given Documented by: [id number] Admin: 12/05/18 08:43 Dose: 12.5 mg Documented by: [id number] Admin: 12/04/18 17:51 Dose: 12.5 mg Documented by: [id number] Admin: 12/04/18 08:06 Dose: 12.5 mg Documented by: [id number] Admin: 12/03/18 17:26 Dose: 12.5 mg Documented by: [id number] Admin: 12/03/18 07:48 Dose: 12.5 mg Documented by: [id number] Admin: 12/02/18 17:04 Dose: 12.5 mg Documented by: [id number] Admin: 12/02/18 07:33 Dose: Not Given Documented by: [id number] Admin: 12/01/18 16:29 Dose: Not Given Documented by: [id number] Admin: 12/01/18 09:03 Dose: Not Given Documented by: [id number] Admin: 11/30/18 17:28 Dose: 12.5 mg Documented by: [id number] Admin: 11/30/18 08:17 Dose: 12.5 mg Documented by: [id number] Admin: 11/29/18 18:04 Dose: Not Given Documented by: [id number] Admin: 11/29/18 09:16 Dose: 12.5 mg Documented by: [id number] Admin: 11/28/18 18:36 Dose: 12.5 mg Documented by: [id number] Admin: 11/28/18 08:46 Dose: 12.5 mg Documented by: [id number] Admin: 11/27/18 16:37 Dose: Not Given Documented by: [id number] Admin: 11/27/18 07:47 Dose: Not Given Documented by: [id number] Admin: 11/26/18 15:48 Dose: Not Given Documented by: [id number] Admin: 11/26/18 07:30 Dose: Not Given Documented by: [id number] Admin: 11/25/18 16:48 Dose: 12.5 mg Documented by: [id number] Admin: 11/25/18 07:31 Dose: Not Given Documented by: [id number] Admin: 11/24/18 16:19 Dose: Not Given Documented by: [id number] Admin: 11/24/18 07:38 Dose: Not Given Documented by: [id number] Admin: 11/23/18 17:47 Dose: Not Given Documented by: [id number] Admin: 11/23/18 07:29 Dose: Not Given Documented by: [id number] Admin: 11/22/18 17:12 Dose: Not Given Documented by: [id number] Admin: 11/22/18 08:42 Dose: 12.5 mg Documented by: [id number] Admin: 11/21/18 16:48 Dose: 12.5 mg Documented by: [id number] Cyanocobalamin (Vitamin B-12) 1,000 mcg PO DAILY NIC Stop: 12/21/18 11:14 Last Admin: 12/14/18 09:25 Dose: 1,000 mcg Documented by: [id number] Admin: 12/13/18 08:07 Dose: 1,000 mcg Documented by: [id number] Admin: 12/12/18 07:08 Dose: 1,000 mcg Documented by: [id number] Admin: 12/11/18 07:23 Dose: 1,000 mcg Documented by: [id number] Admin: 12/10/18 08:01 Dose: 1,000 mcg Documented by: [id number] Admin: 12/09/18 08:13 Dose: 1,000 mcg Documented by: [id number] Admin: 12/08/18 07:58 Dose: 1,000 mcg Documented by: [id number] Admin: 12/07/18 07:56 Dose: 1,000 mcg Documented by: [id number] Admin: 12/06/18 08:48 Dose: 1,000 mcg Documented by: [id number] Admin: 12/05/18 08:43 Dose: 1,000 mcg Documented by: [id number] Admin: 12/04/18 08:05 Dose: 1,000 mcg Documented by: [id number] Admin: 12/03/18 07:49 Dose: 1,000 mcg Documented by: [id number] Admin: 12/02/18 07:34 Dose: Not Given Documented by: [id number] Admin: 12/01/18 09:04 Dose: Not Given Documented by: [id number] Admin: 11/30/18 08:17 Dose: 1,000 mcg Documented by: [id number] Admin: 11/29/18 09:15 Dose: 1,000 mcg Documented by: [id number] Admin: 11/28/18 08:48 Dose: 1,000 mcg Documented by: [id number] Admin: 11/27/18 07:46 Dose: 1,000 mcg Documented by: [id number] Admin: 11/26/18 07:38 Dose: 1,000 mcg Documented by: [id number] Admin: 11/25/18 07:33 Dose: 1,000 mcg Documented by: [id number] Admin: 11/24/18 07:39 Dose: 1,000 mcg Documented by: [id number] Admin: 11/23/18 07:44 Dose: 1,000 mcg Documented by: [id number] Admin: 11/22/18 08:41 Dose: 1,000 mcg Documented by: [id number] Admin: 11/21/18 11:34 Dose: Not Given Documented by: [id number] Dextrose (Dextrose 50%) 25 - 50 ml IV UD PRN; Protocol PRN Reason: Hypoglycemia Protocol Stop: 12/30/18 16:59 Last Admin: 11/30/18 22:30 Dose: 25 ml Documented by: [id number] Admin: 11/30/18 17:41 Dose: 25 ml Documented by: [id number] Divalproex Sodium (Depakote Delay Release) 500 mg PO BID NIC Stop: 12/27/18 08:59 Last Admin: 12/14/18 09:26 Dose: 500 mg Documented by: [id number] Admin: 12/13/18 21:16 Dose: 500 mg Documented by: [id number] Admin: 12/13/18 08:07 Dose: 500 mg Documented by: [id number] Admin: 12/12/18 20:50 Dose: 500 mg Documented by: [id number] Admin: 12/12/18 07:08 Dose: 500 mg Documented by: [id number] Admin: 12/11/18 21:28 Dose: 500 mg Documented by: [id number] Admin: 12/11/18 07:23 Dose: 500 mg Documented by: [id number] Admin: 12/10/18 20:27 Dose: 500 mg Documented by: [id number] Admin: 12/10/18 08:00 Dose: 500 mg Documented by: [id number] Admin: 12/09/18 20:37 Dose: 500 mg Documented by: [id number] Admin: 12/09/18 08:13 Dose: 500 mg Documented by: [id number] Admin: 12/08/18 20:06 Dose: 500 mg Documented by: [id number] Admin: 12/08/18 07:57 Dose: 500 mg Documented by: [id number] Admin: 12/07/18 21:12 Dose: 500 mg Documented by: [id number] Admin: 12/07/18 08:41 Dose: 500 mg Documented by: [id number] Admin: 12/06/18 20:45 Dose: 500 mg Documented by: [id number] Admin: 12/06/18 08:48 Dose: 500 mg Documented by: [id number] Admin: 12/05/18 21:00 Dose: 500 mg Documented by: [id number] Admin: 12/05/18 08:43 Dose: 500 mg Documented by: [id number] Admin: 12/04/18 20:35 Dose: 500 mg Documented by: [id number] Admin: 12/04/18 08:07 Dose: 500 mg Documented by: [id number] Admin: 12/03/18 21:12 Dose: 500 mg Documented by: [id number] Admin: 12/03/18 07:49 Dose: 500 mg Documented by: [id number] Admin: 12/02/18 21:36 Dose: 500 mg Documented by: [id number] Admin: 12/02/18 07:33 Dose: Not Given Documented by: [id number] Admin: 12/01/18 21:13 Dose: Not Given Documented by: [id number] Admin: 12/01/18 09:03 Dose: Not Given Documented by: [id number] Admin: 11/30/18 21:50 Dose: 500 mg Documented by: [id number] Admin: 11/30/18 08:17 Dose: 500 mg Documented by: [id number] Admin: 11/29/18 21:01 Dose: 500 mg Documented by: [id number] Admin: 11/29/18 09:16 Dose: 500 mg Documented by: [id number] Admin: 11/28/18 22:38 Dose: 500 mg Documented by: [id number] Admin: 11/28/18 22:26 Dose: Not Given Documented by: [id number] Admin: 11/28/18 08:46 Dose: 500 mg Documented by: [id number] Admin: 11/27/18 20:33 Dose: 500 mg Documented by: [id number] Admin: 11/27/18 07:47 Dose: 500 mg Documented by: [id number] Duloxetine HCl (Cymbalta) 60 mg PO DAILY NIC Stop: 12/21/18 11:14 Last Admin: 12/14/18 09:26 Dose: 60 mg Documented by: [id number] Admin: 12/13/18 08:07 Dose: 60 mg Documented by: [id number] Admin: 12/12/18 07:09 Dose: 60 mg Documented by: [id number] Admin: 12/11/18 07:24 Dose: 60 mg Documented by: [id number] Admin: 12/10/18 08:00 Dose: 60 mg Documented by: [id number] Admin: 12/09/18 08:13 Dose: 60 mg Documented by: [id number] Admin: 12/08/18 07:58 Dose: 60 mg Documented by: [id number] Admin: 12/07/18 07:56 Dose: 60 mg Documented by: [id number] Admin: 12/06/18 08:47 Dose: 60 mg Documented by: [id number] Admin: 12/05/18 08:43 Dose: 60 mg Documented by: [id number] Admin: 12/04/18 08:07 Dose: 60 mg Documented by: [id number] Admin: 12/03/18 07:48 Dose: 60 mg Documented by: [id number] Admin: 12/02/18 07:33 Dose: Not Given Documented by: [id number] Admin: 12/01/18 09:03 Dose: Not Given Documented by: [id number] Admin: 11/30/18 08:17 Dose: 60 mg Documented by: [id number] Admin: 11/29/18 09:15 Dose: 60 mg Documented by: [id number] Admin: 11/28/18 08:45 Dose: 60 mg Documented by: [id number] Admin: 11/27/18 07:46 Dose: 60 mg Documented by: [id number] Admin: 11/26/18 07:39 Dose: 60 mg Documented by: [id number] Admin: 11/25/18 07:32 Dose: 60 mg Documented by: [id number] Admin: 11/24/18 07:38 Dose: 60 mg Documented by: [id number] Admin: 11/23/18 07:45 Dose: 60 mg Documented by: [id number] Admin: 11/22/18 08:41 Dose: 60 mg Documented by: [id number] Admin: 11/21/18 11:34 Dose: Not Given Documented by: [id number] Glucose (Dex4 Glucose) 4 - 8 tabs PO UD PRN; Protocol PRN Reason: Hypoglycemia Protocol Stop: 12/30/18 16:59 Last Admin: 11/30/18 17:27 Dose: 4 tabs Documented by: [id number] Admin: 11/30/18 17:10 Dose: 8 tabs Documented by: [id number] Hydrocortisone Sodium (Succinate 50 mg/ Syringe) 1 mls @ 4 mls/min IV Q8H [facility] Stop: 01/13/19 01:59 Last Admin: 12/14/18 09:26 Dose: 4 mls/min Documented by: [id number] Admin: 12/14/18 02:53 Dose: 4 mls/min Documented by: [id number] Parenteral Electrolytes (Normosol-R) 1,000 mls @ 125 mls/hr IV .Q8H [facility] Stop: 01/12/19 21:14 Last Admin: 12/14/18 05:20 Dose: 125 mls/hr Documented by: [id number] Infusion: 12/14/18 05:20 Dose: 125 mls/hr Documented by: [id number] Admin: 12/13/18 21:26 Dose: 125 mls/hr Documented by: [id number] Levofloxacin/Dextrose (Levaquin/D5w) 750 mg in 150 mls @ 100 mls/hr IV Q48H [facility] Stop: 12/28/18 08:59 Last Admin: 12/14/18 09:26 Dose: 100 mls/hr Documented by: [id number] Imipramine HCl (Tofranil) 25 mg PO TID [facility] Stop: 12/21/18 13:59 Last Admin: 12/14/18 09:26 Dose: 25 mg Documented by: [id number] Admin: 12/13/18 21:17 Dose: 25 mg Documented by: [id number] Admin: 12/13/18 13:28 Dose: 25 mg Documented by: [id number] Admin: 12/13/18 08:07 Dose: 25 mg Documented by: [id number] Admin: 12/12/18 20:51 Dose: 25 mg Documented by: [id number] Admin: 12/12/18 13:30 Dose: 25 mg Documented by: [id number] Admin: 12/12/18 07:08 Dose: 25 mg Documented by: [id number] Admin: 12/11/18 21:27 Dose: 25 mg Documented by: [id number] Admin: 12/11/18 13:54 Dose: 25 mg Documented by: [id number] Admin: 12/11/18 07:23 Dose: 25 mg Documented by: [id number] Admin: 12/10/18 20:29 Dose: 25 mg Documented by: [id number] Admin: 12/10/18 13:01 Dose: 25 mg Documented by: [id number] Admin: 12/10/18 08:01 Dose: 25 mg Documented by: [id number] Admin: 12/09/18 20:37 Dose: 25 mg Documented by: [id number] Admin: 12/09/18 13:50 Dose: 25 mg Documented by: [id number] Admin: 12/09/18 08:13 Dose: 25 mg Documented by: [id number] Admin: 12/08/18 20:06 Dose: 25 mg Documented by: [id number] Admin: 12/08/18 14:17 Dose: 25 mg Documented by: [id number] Admin: 12/08/18 07:56 Dose: 25 mg Documented by: [id number] Admin: 12/07/18 21:09 Dose: 25 mg Documented by: [id number] Admin: 12/07/18 14:19 Dose: 25 mg Documented by: [id number] Admin: 12/07/18 07:57 Dose: 25 mg Documented by: [id number] Admin: 12/06/18 20:45 Dose: 25 mg Documented by: [id number] Admin: 12/06/18 13:25 Dose: 25 mg Documented by: [id number] Admin: 12/06/18 08:47 Dose: 25 mg Documented by: [id number] Admin: 12/05/18 21:01 Dose: 25 mg Documented by: [id number] Admin: 12/05/18 15:06 Dose: 25 mg Documented by: [id number] Admin: 12/05/18 08:43 Dose: 25 mg Documented by: [id number] Admin: 12/04/18 20:36 Dose: 25 mg Documented by: [id number] Admin: 12/04/18 14:14 Dose: 25 mg Documented by: [id number] Admin: 12/04/18 08:06 Dose: 25 mg Documented by: [id number] Admin: 12/03/18 21:14 Dose: 25 mg Documented by: [id number] Admin: 12/03/18 13:01 Dose: 25 mg Documented by: [id number] Admin: 12/03/18 07:49 Dose: 25 mg Documented by: [id number] Admin: 12/02/18 21:37 Dose: 25 mg Documented by: [id number] Admin: 12/02/18 13:53 Dose: 25 mg Documented by: [id number] Admin: 12/02/18 07:34 Dose: Not Given Documented by: [id number] Admin: 12/01/18 21:13 Dose: Not Given Documented by: [id number] Admin: 12/01/18 13:42 Dose: Not Given Documented by: [id number] Admin: 12/01/18 09:04 Dose: Not Given Documented by: [id number] Admin: 11/30/18 21:50 Dose: 25 mg Documented by: [id number] Admin: 11/30/18 14:00 Dose: 25 mg Documented by: [id number] Admin: 11/30/18 08:18 Dose: 25 mg Documented by: [id number] Admin: 11/29/18 21:03 Dose: 25 mg Documented by: [id number] Admin: 11/29/18 13:04 Dose: 25 mg Documented by: [id number] Admin: 11/29/18 09:14 Dose: 25 mg Documented by: [id number] Admin: 11/28/18 22:38 Dose: 25 mg Documented by: [id number] Admin: 11/28/18 22:26 Dose: Not Given Documented by: [id number] Admin: 11/28/18 15:42 Dose: 25 mg Documented by: [id number] Admin: 11/28/18 08:46 Dose: 25 mg Documented by: [id number] Admin: 11/27/18 20:34 Dose: 25 mg Documented by: [id number] Admin: 11/27/18 11:49 Dose: 25 mg Documented by: [id number] Admin: 11/27/18 07:47 Dose: 25 mg Documented by: [id number] Admin: 11/26/18 19:59 Dose: 25 mg Documented by: [id number] Admin: 11/26/18 12:08 Dose: 25 mg Documented by: [id number] Admin: 11/26/18 07:39 Dose: 25 mg Documented by: [id number] Admin: 11/25/18 20:43 Dose: 25 mg Documented by: [id number] Admin: 11/25/18 15:21 Dose: Not Given Documented by: [id number] Admin: 11/25/18 07:32 Dose: 25 mg Documented by: [id number] Admin: 11/24/18 20:47 Dose: 25 mg Documented by: [id number] Admin: 11/24/18 14:47 Dose: Not Given Documented by: [id number] Admin: 11/24/18 07:39 Dose: 25 mg Documented by: [id number] Admin: 11/23/18 20:52 Dose: 25 mg Documented by: [id number] Admin: 11/23/18 15:02 Dose: 25 mg Documented by: [id number] Admin: 11/23/18 07:43 Dose: 25 mg Documented by: [id number] Admin: 11/22/18 20:59 Dose: 25 mg Documented by: [id number] Admin: 11/22/18 14:02 Dose: 25 mg Documented by: [id number] Admin: 11/22/18 08:43 Dose: 25 mg Documented by: [id number] Admin: 11/21/18 21:16 Dose: 25 mg Documented by: [id number] Admin: 11/21/18 12:56 Dose: Not Given Documented by: [id number] Insulin Aspart (Novolog Flexpen) [address] [facility]; Protocol Stop: 01/01/19 16:29 Last Admin: 12/14/18 09:24 Dose: 13 units Documented by: [id number] Cosigned by: [id number] Admin: 12/13/18 21:07 Dose: Not Given Documented by: [id number] Cosigned by: [id number] Admin: 12/13/18 17:15 Dose: 4 units Documented by: [id number] Cosigned by: [id number] Admin: 12/13/18 12:47 Dose: 12 units Documented by: [id number] Cosigned by: [id number] Admin: 12/13/18 08:06 Dose: 6 units Documented by: [id number] Cosigned by: [id number] Admin: 12/12/18 20:49 Dose: 1 units Documented by: [id number] Cosigned by: [id number] Admin: 12/12/18 17:15 Dose: 6 units Documented by: [id number] Cosigned by: [id number] Admin: 12/12/18 12:18 Dose: 8 units Documented by: [id number] Cosigned by: [id number] Admin: 12/12/18 08:11 Dose: 6 units Documented by: [id number] Cosigned by: [id number] Admin: 12/11/18 21:31 Dose: 1 units Documented by: [id number] Cosigned by: [id number] Admin: 12/11/18 17:07 Dose: 2 units Documented by: [id number] Cosigned by: [id number] Admin: 12/11/18 12:23 Dose: 6 units Documented by: [id number] Cosigned by: [id number] Admin: 12/11/18 08:12 Dose: 6 units Documented by: [id number] Cosigned by: [id number] Admin: 12/10/18 20:27 Dose: 1 units Documented by: [id number] Cosigned by: [id number] Admin: 12/10/18 17:38 Dose: 9 units Documented by: [id number] Cosigned by: [id number] Admin: 12/10/18 13:01 Dose: 5 units Documented by: [id number] Cosigned by: [id number] Admin: 12/10/18 08:00 Dose: 6 units Documented by: [id number] Cosigned by: [id number] Admin: 12/09/18 20:38 Dose: 1 units Documented by: [id number] Cosigned by: [id number] Admin: 12/09/18 18:22 Dose: 4 units Documented by: [id number] Cosigned by: [id number] Admin: 12/09/18 12:22 Dose: 4 units Documented by: [id number] Cosigned by: [id number] Admin: 12/09/18 08:13 Dose: 5 units Documented by: [id number] Cosigned by: [id number] Admin: 12/08/18 21:11 Dose: 1 units Documented by: [id number] Cosigned by: [id number] Admin: 12/08/18 17:06 Dose: 4 units Documented by: [id number] Cosigned by: [id number] Admin: 12/08/18 12:14 Dose: 7 units Documented by: [id number] Cosigned by: [id number] Admin: 12/08/18 08:01 Dose: 6 units Documented by: [id number] Cosigned by: [id number] Admin: 12/07/18 21:13 Dose: 1 units Documented by: [id number] Cosigned by: [id number] Admin: 12/07/18 17:02 Dose: 10 units Documented by: [id number] Cosigned by: [id number] Admin: 12/07/18 12:37 Dose: 7 units Documented by: [id number] Cosigned by: [id number] Admin: 12/07/18 08:00 Dose: 4 units Documented by: [id number] Cosigned by: [id number] Admin: 12/06/18 21:31 Dose: Not Given Documented by: [id number] Cosigned by: [id number] Admin: 12/06/18 17:47 Dose: 4 units Documented by: [id number] Cosigned by: [id number] Admin: 12/06/18 13:24 Dose: 10 units Documented by: [id number] Cosigned by: [id number] Admin: 12/06/18 08:50 Dose: 6 units Documented by: [id number] Cosigned by: [id number] Admin: 12/05/18 20:55 Dose: 1 units Documented by: [id number] Cosigned by: [id number] Admin: 12/05/18 17:16 Dose: 2 units Documented by: [id number] Cosigned by: [id number] Admin: 12/05/18 12:57 Dose: Not Given Documented by: [id number] Cosigned by: [id number] Admin: 12/05/18 08:40 Dose: 5 units Documented by: [id number] Cosigned by: [id number] Admin: 12/04/18 20:20 Dose: Not Given Documented by: [id number] Cosigned by: [id number] Admin: 12/04/18 17:47 Dose: 3 units Documented by: [id number] Cosigned by: [id number] Admin: 12/04/18 12:49 Dose: 4 units Documented by: [id number] Cosigned by: [id number] Admin: 12/04/18 08:10 Dose: 6 units Documented by: [id number] Cosigned by: [id number] Admin: 12/03/18 20:17 Dose: Not Given Documented by: [id number] Cosigned by: [id number] Admin: 12/03/18 17:21 Dose: 5 units Documented by: [id number] Cosigned by: [id number] Admin: 12/03/18 13:01 Dose: 6 units Documented by: [id number] Cosigned by: [id number] Admin: 12/03/18 07:56 Dose: 1 units Documented by: [id number] Cosigned by: [id number] Admin: 12/02/18 22:05 Dose: Not Given Documented by: [id number] Cosigned by: [id number] Admin: 12/02/18 17:38 Dose: 2 units Documented by: [id number] Cosigned by: [id number] Levothyroxine Sodium (Synthroid) 150 mcg PO DAILYBB NIC Stop: 12/29/18 06:29 Last Admin: 12/14/18 05:20 Dose: 150 mcg Documented by: [id number] Admin: 12/13/18 06:05 Dose: 150 mcg Documented by: [id number] Admin: 12/12/18 06:32 Dose: 150 mcg Documented by: [id number] Admin: 12/11/18 06:14 Dose: 150 mcg Documented by: [id number] Admin: 12/10/18 06:07 Dose: 150 mcg Documented by: [id number] Admin: 12/09/18 06:07 Dose: 150 mcg Documented by: [id number] Admin: 12/08/18 06:25 Dose: 150 mcg Documented by: [id number] Admin: 12/07/18 12:47 Dose: Not Given Documented by: [id number] Admin: 12/06/18 05:08 Dose: 150 mcg Documented by: [id number] Admin: 12/05/18 06:29 Dose: 150 mcg Documented by: [id number] Admin: 12/04/18 05:56 Dose: 150 mcg Documented by: [id number] Admin: 12/03/18 05:06 Dose: 150 mcg Documented by: [id number] Admin: 12/02/18 05:25 Dose: Not Given Documented by: [id number] Admin: 12/01/18 06:10 Dose: Not Given Documented by: [id number] Admin: 11/30/18 05:44 Dose: 150 mcg Documented by: [id number] Admin: 11/29/18 05:30 Dose: 150 mcg Documented by: [id number] Magnesium Oxide (Mag-Ox) 400 mg PO BID NIC Stop: 01/07/19 11:59 Last Admin: 12/14/18 09:26 Dose: 400 mg Documented by: [id number] Admin: 12/13/18 21:17 Dose: 400 mg Documented by: [id number] Admin: 12/13/18 08:07 Dose: 400 mg Documented by: [id number] Admin: 12/12/18 20:51 Dose: 400 mg Documented by: [id number] Admin: 12/12/18 07:09 Dose: 400 mg Documented by: [id number] Admin: 12/11/18 21:28 Dose: 400 mg Documented by: [id number] Admin: 12/11/18 07:23 Dose: 400 mg Documented by: [id number] Admin: 12/10/18 20:27 Dose: 400 mg Documented by: [id number] Admin: 12/10/18 08:01 Dose: 400 mg Documented by: [id number] Admin: 12/09/18 20:37 Dose: 400 mg Documented by: [id number] Admin: 12/09/18 08:13 Dose: 400 mg Documented by: [id number] Admin: 12/08/18 20:05 Dose: 400 mg Documented by: [id number] Admin: 12/08/18 12:36 Dose: 400 mg Documented by: [id number] Miscellaneous (Carbohydrates For Hypoglycemia) 15 - 30 gm PO UD PRN PRN Reason: Hypoglycemia Treatment Stop: 12/30/18 16:59 Last Admin: 11/30/18 16:56 Dose: 15 gm Documented by: [id number] Multivitamins (Multivitamin Tab) 1 tab PO QAM NIC Stop: 12/24/18 17:59 Last Admin: 12/14/18 09:25 Dose: 1 tab Documented by: [id number] Admin: 12/13/18 08:07 Dose: 1 tab Documented by: [id number] Admin: 12/12/18 07:09 Dose: 1 tab Documented by: [id number] Admin: 12/11/18 07:23 Dose: 1 tab Documented by: [id number] Admin: 12/10/18 08:00 Dose: 1 tab Documented by: [id number] Admin: 12/09/18 08:13 Dose: 1 tab Documented by: [id number] Admin: 12/08/18 07:58 Dose: 1 tab Documented by: [id number] Admin: 12/07/18 07:56 Dose: 1 tab Documented by: [id number] Admin: 12/06/18 08:47 Dose: 1 tab Documented by: [id number] Admin: 12/05/18 08:44 Dose: 1 tab Documented by: [id number] Admin: 12/04/18 08:06 Dose: 1 tab Documented by: [id number] Admin: 12/03/18 07:48 Dose: 1 tab Documented by: [id number] Admin: 12/02/18 07:33 Dose: Not Given Documented by: [id number] Admin: 12/01/18 09:03 Dose: Not Given Documented by: [id number] Admin: 11/30/18 08:17 Dose: 1 tab Documented by: [id number] Admin: 11/29/18 09:15 Dose: 1 tab Documented by: [id number] Admin: 11/28/18 08:45 Dose: 1 tab Documented by: [id number] Admin: 11/27/18 07:46 Dose: 1 tab Documented by: [id number] Admin: 11/26/18 07:40 Dose: 1 tab Documented by: [id number] Admin: 11/25/18 07:33 Dose: 1 tab Documented by: [id number] Admin: 11/24/18 20:45 Dose: 1 tab Documented by: [id number] Multivitamins/Minerals (Caltrate Plus) 1 tab PO DAILY NIC Stop: 12/21/18 11:14 Last Admin: 12/14/18 09:26 Dose: 1 tab Documented by: [id number] Admin: 12/13/18 08:07 Dose: 1 tab Documented by: [id number] Admin: 12/12/18 07:09 Dose: 1 tab Documented by: [id number] Admin: 12/11/18 07:24 Dose: 1 tab Documented by: [id number] Admin: 12/10/18 08:00 Dose: 1 tab Documented by: [id number] Admin: 12/09/18 08:13 Dose: 1 tab Documented by: [id number] Admin: 12/08/18 07:57 Dose: 1 tab Documented by: [id number] Admin: 12/07/18 07:56 Dose: 1 tab Documented by: [id number] Admin: 12/06/18 08:48 Dose: 1 tab Documented by: [id number] Admin: 12/05/18 08:43 Dose: 1 tab Documented by: [id number] Admin: 12/04/18 08:06 Dose: 1 tab Documented by: [id number] Admin: 12/03/18 07:48 Dose: 1 tab Documented by: [id number] Admin: 12/02/18 07:33 Dose: Not Given Documented by: [id number] Admin: 12/01/18 09:03 Dose: Not Given Documented by: [id number] Admin: 11/30/18 08:17 Dose: 1 tab Documented by: [id number] Admin: 11/29/18 09:14 Dose: 1 tab Documented by: [id number] Admin: 11/28/18 08:46 Dose: 1 tab Documented by: [id number] Admin: 11/27/18 07:46 Dose: 1 tab Documented by: [id number] Admin: 11/26/18 07:39 Dose: 1 tab Documented by: [id number] Admin: 11/25/18 07:33 Dose: 1 tab Documented by: [id number] Admin: 11/24/18 07:39 Dose: 1 tab Documented by: [id number] Admin: 11/23/18 07:44 Dose: 1 tab Documented by: [id number] Admin: 11/22/18 08:42 Dose: 1 tab Documented by: [id number] Admin: 11/21/18 11:34 Dose: Not Given Documented by: [id number] Ondansetron HCl (Zofran) 4 mg IV Q6H PRN PRN Reason: Nausea Stop: 12/20/18 15:54 Last Admin: 11/20/18 20:53 Dose: 4 mg Documented by: [id number] Ranitidine HCl (Zantac) 150 mg PO HS NIC Stop: 12/21/18 20:59 Last Admin: 12/13/18 21:16 Dose: 150 mg Documented by: [id number] Admin: 12/12/18 20:51 Dose: 150 mg Documented by: [id number] Admin: 12/11/18 21:28 Dose: 150 mg Documented by: [id number] Admin: 12/10/18 20:30 Dose: 150 mg Documented by: [id number] Admin: 12/09/18 20:37 Dose: 150 mg Documented by: [id number] Admin: 12/08/18 20:05 Dose: 150 mg Documented by: [id number] Admin: 12/07/18 21:11 Dose: 150 mg Documented by: [id number] Admin: 12/06/18 20:46 Dose: 150 mg Documented by: [id number] Admin: 12/05/18 21:02 Dose: 150 mg Documented by: [id number] Admin: 12/04/18 20:36 Dose: 150 mg Documented by: [id number] Admin: 12/03/18 21:12 Dose: 150 mg Documented by: [id number] Admin: 12/02/18 21:36 Dose: 150 mg Documented by: [id number] Admin: 12/01/18 21:14 Dose: Not Given Documented by: [id number] Admin: 11/30/18 21:49 Dose: 150 mg Documented by: [id number] Admin: 11/29/18 21:03 Dose: 150 mg Documented by: [id number] Admin: 11/28/18 20:31 Dose: 150 mg Documented by: [id number] Admin: 11/27/18 20:38 Dose: 150 mg Documented by: [id number] Admin: 11/26/18 20:00 Dose: 150 mg Documented by: [id number] Admin: 11/25/18 20:43 Dose: 150 mg Documented by: [id number] Admin: 11/24/18 20:48 Dose: 150 mg Documented by: [id number] Admin: 11/23/18 20:53 Dose: 150 mg Documented by: [id number] Admin: 11/22/18 21:00 Dose: 150 mg Documented by: [id number] Admin: 11/21/18 21:16 Dose: 150 mg Documented by: [id number] Risperidone (Risperdal) 1 mg PO BID NIC Stop: 12/21/18 11:14 Last Admin: 12/14/18 09:26 Dose: 1 mg Documented by: [id number] Admin: 12/13/18 21:16 Dose: 1 mg Documented by: [id number] Admin: 12/13/18 08:07 Dose: 1 mg Documented by: [id number] Admin: 12/12/18 20:51 Dose: 1 mg Documented by: [id number] Admin: 12/12/18 07:08 Dose: 1 mg Documented by: [id number] Admin: 12/11/18 21:27 Dose: 1 mg Documented by: [id number] Admin: 12/11/18 07:23 Dose: 1 mg Documented by: [id number] Admin: 12/10/18 20:29 Dose: 1 mg Documented by: [id number] Admin: 12/10/18 08:01 Dose: 1 mg Documented by: [id number] Admin: 12/09/18 20:37 Dose: 1 mg Documented by: [id number] Admin: 12/09/18 08:12 Dose: 1 mg Documented by: [id number] Admin: 12/08/18 20:06 Dose: 1 mg Documented by: [id number] Admin: 12/08/18 07:56 Dose: 1 mg Documented by: [id number] Admin: 12/07/18 21:09 Dose: 1 mg Documented by: [id number] Admin: 12/07/18 07:57 Dose: 1 mg Documented by: [id number] Admin: 12/06/18 20:45 Dose: 1 mg Documented by: [id number] Admin: 12/06/18 08:48 Dose: 1 mg Documented by: [id number] Admin: 12/05/18 21:03 Dose: 1 mg Documented by: [id number] Admin: 12/05/18 08:44 Dose: 1 mg Documented by: [id number] Admin: 12/04/18 20:35 Dose: 1 mg Documented by: [id number] Admin: 12/04/18 08:07 Dose: 1 mg Documented by: [id number] Admin: 12/03/18 21:12 Dose: 1 mg Documented by: [id number] Admin: 12/03/18 07:48 Dose: 1 mg Documented by: [id number] Admin: 12/02/18 21:37 Dose: 1 mg Documented by: [id number] Admin: 12/02/18 07:34 Dose: Not Given Documented by: [id number] Admin: 12/01/18 21:13 Dose: Not Given Documented by: [id number] Admin: 12/01/18 09:04 Dose: Not Given Documented by: [id number] Admin: 11/30/18 21:49 Dose: 1 mg Documented by: [id number] Admin: 11/30/18 08:17 Dose: 1 mg Documented by: [id number] Admin: 11/29/18 21:02 Dose: 1 mg Documented by: [id number] Admin: 11/29/18 09:15 Dose: 1 mg Documented by: [id number] Admin: 11/28/18 22:39 Dose: 1 mg Documented by: [id number] Admin: 11/28/18 22:26 Dose: Not Given Documented by: [id number] Admin: 11/28/18 08:46 Dose: 1 mg Documented by: [id number] Admin: 11/27/18 20:34 Dose: 1 mg Documented by: [id number] Admin: 11/27/18 07:47 Dose: 1 mg Documented by: [id number] Admin: 11/26/18 19:59 Dose: 1 mg Documented by: [id number] Admin: 11/26/18 07:40 Dose: 1 mg Documented by: [id number] Admin: 11/25/18 20:43 Dose: 1 mg Documented by: [id number] Admin: 11/25/18 07:33 Dose: 1 mg Documented by: [id number] Admin: 11/24/18 20:48 Dose: 1 mg Documented by: [id number] Admin: 11/24/18 07:39 Dose: 1 mg Documented by: [id number] Admin: 11/23/18 20:52 Dose: 1 mg Documented by: [id number] Admin: 11/23/18 07:45 Dose: 1 mg Documented by: [id number] Admin: 11/22/18 20:58 Dose: 1 mg Documented by: [id number] Admin: 11/22/18 08:42 Dose: 1 mg Documented by: [id number] Admin: 11/21/18 21:16 Dose: 1 mg Documented by: [id number] Admin: 11/21/18 11:34 Dose: Not Given Documented by: [id number] Resident Activity Tracking Resident Involvement: Resident Care Provided Care Provided: Adult Hospital Medicine (ICU) (1) Altered mental status Altered mental status type: unspecified Qualified Code(s): R41.82 - Altered mental status, unspecified (2) Acute pancreatitis Acute pancreatitis complication: unspecified Pancreatitis type: unspecified pancreatitis type Qualified Code(s): K85.90 - Acute pancreatitis without necrosis or infection, unspecified
[2018-12-14] MEDS ORDERED: LEVOFLOXACIN/D5W 750 MG/150 ML BAG IV SCH (09:00)
[2018-12-14] MEDS ORDERED: LEVOFLOXACIN CONSULT ACTIVE PRN (09:16)
[2018-12-14] MEDS: INSULIN ASPART 100 UNITS/ML 3 ML PEN SC SCH ×4 (09:24→21:46)
[2018-12-14] MEDS: MULTIVITAMIN TAB PO SCH (09:25)
[2018-12-14] MEDS: CYANOCOBALAMIN 500 MCG TABLET (VITAMIN B-12) PO SCH (09:25)
[2018-12-14] MEDS: IMIPRAMINE HCL 25 MG TAB PO SCH ×3 (09:26→21:38)
[2018-12-14] MEDS: DIVALPROEX DELAY RELEASE 500 MG TAB PO SCH ×2 (09:26→21:37)
[2018-12-14] MEDS: CALCIUM 600MG + VIT D 400 IU TAB PO SCH (09:26)
[2018-12-14] MEDS: risperiDONE 1 MG TABLET PO SCH ×2 (09:26→21:38)
[2018-12-14] MEDS: DULOXETINE HCL 60 MG CAP PO SCH (09:26)
[2018-12-14] MEDS: MAGNESIUM OXIDE 400 MG TAB PO SCH ×2 (09:26→21:41)
--- NOTE | 2018-12-14 09:35 | Pharmacy Report ---
Glycemic Control Progress Note - Date of Service December 14, 2018 - Scope Glycemic Pharmacist consulted for glycemic control to write orders per [facility] inpatient glycemic control protocol. - Objective Accuchecks BSG(last 24 hours):: 12/13/18 12/13/18 12/13/18 11:28 16:36 17:30 Glucose POC Glucose 228 H 245 H 155 H 12/13/18 12/13/18 12/13/18 18:24 18:58 21:00 Glucose 132 H POC Glucose 198 H 113 H 12/14/18 12/14/18 04:48 07:33 Glucose 167 H POC Glucose 175 H HbA1c:: Hemoglobin A1c 5.9 % (4.5-5.6) H 11/28/18 10:20 - Recent Pertinent Medications The patient is currently receiving: * Basal insulin: Lantus 0 units every -- hours * Correctional Insulin: Novolog Correction per scale ACHS Goal Range: Low 110 mg/dL - High 14 mg/dL Correction Factor: 30 mg/dL/unit * Prandial insulin: Per carb ratio of 1 unit per 10 grams CHO consumed - Outpatient Anti-Diabetic Meds N/A - Assessment & Plan ASSESSMENT: * See progress note from 11/28/18 for more background info, in short: * Pt receiving SQ basal bolus insulin regimen for hyperglycemia secondary to baseline DM (outpatient regimen on hold), infection ( currently on Levaquin for bacteremia), and steroids (currently on hydrocortisone 50 mg IV [id number]) * Patient is currently receiving an average of 22 units of insulin per day * 0 units of basal insulin * 22 units of prandial/correctional insulin * BSGs ranging 113 - 228 mg/dl over the past 24hrs * Changes needed to insulin regimen: * AM Fasting BSG = 175 mg/dl. This is above goal range for patient based on inpatient targets and co-morbidities. The patient was started on hydrocortisone last night. Based upon data from this hospital visit, the patient requires tight CF/CR with IV steroids. The patient only received around 20-25 units of basal insulin per day while on IV steroids. HOWEVER, once steroids were decreased to 25 mg IVq 12 hours he required no basal insulin- he actually had hypoglycemia. Will hold off on basal insulin for right now and utilize tight ACHS coverage. * Post-prandial BSGs are elevated - tighten significant with steroids. * Total daily dose = 20 units while not on steroids; 30 units while on steroids. PLAN FOR INPATIENT GLYCEMIC CONTROL: * Continuing NO basal insulin * tIGHTENING correction factor to 15 mg/dl/unit * TIGHTENING carb ratio to 1 unit per 4 grams CHO consumed * Continuing goal range of Low 110 mg/dL - High 140 mg/dL * Please note that the plan above was derived based on current level of insulin resistance and hospital stress. These recommendations are appropriate for inpatient admission only. Plan of care upon discharge will need to be reassessed to avoid potential outpatient hypo/hyperglycemia. Thank you.
--- NOTE | 2018-12-14 11:01 | Hospitalist Progress Note ---
Date of Service December 14, 2018 Assessment & Plan (1) Severe sepsis: Secondary to E. coli UTI, gram-negative bacilli bacteremia Associated with acute on chronic kidney failure, episode of hypotension Transfer to ICU Overnight blood pressure improved but still in the low normal range, bradycardia also improving Urine culture: Positive for E. coli, ESBL Cultures: Gram-negative bacilli, sensitivities pending Discussed with forensic manager Dr. Lozada We will change Zosyn to Levaquin Continue IV fluids Continue stress dose hydrocortisone ID consulted, appreciate recommendations (2) UTI (urinary tract infection): Management as noted above (3) Acute renal failure superimposed on stage 3 chronic kidney disease: Creatinine increased to 2.4 Likely from hypotension, sepsis Improved to 2.06 today Continue IV fluids (4) Acute metabolic encephalopathy: Resolved In the setting of pancreatitis, pneumonia, possible adrenal insufficiency Subclinical hypothyroidism contributing? TSH 10.4, free T4 1.39 Increased levothyroxine from 125 to 150 mcg daily repeat thyroid function tests in 4 to 6 weeks Most lethargic yesterday, improved with improvement of heart rate and blood pressure Low hemoglobin Multifactorial and most likely due to ongoing infection and poor nutrition No acute blood loss Given 2 units of packed RBCs HGlobin 9.2, stable so far for the past few days No signs of active bleeding (5) Small bowel obstruction: Resolve with conservative management Has had diarrhea C. difficile toxin has been negative but C. difficile gene has been positive Discussed with ID Not infectious and does not require any treatment Diarrhea resolved (6) Pancreatitis: Presented with abdominal pain and nausea CT scan did show:CT abdomen pelvis revealed acute pancreatitis, trace pleural effusion and trace abdominal pelvic ascites, gallbladder sludge, diverticulosis Patient bowel rest, IV fluids Lipase normalized Resolved Patient's CT abdomen showing gallbladder sludge GI consulted, recommend eventual cholecystectomy to prevent recurrence of pancre atitis Lipase 1400, no signs of abdominal pain Continue to monitor (7) Pneumonia: Chest x-ray concerning for left basilar opacity and pleural effusion poss ibly consistent with pneumonia Urinalysis does have positive leukoesterase and nitrites, but negative bacteria -Per patient's sister he has history of UTI which presents as confusion Patient does not meet Sepsis Criteria Continue IV antibiotics with Zosyn, obtain mRSA nasal swab if negative will not cover for MRSA given concern for SHIELA Abd U/S Limited to RUQ to r/o gall bladder pathology as etiology of pancreatitis - currently unknown no ETOH or NSAID obtain NH3, blood cultures: Negative Finished antibiotics Levaquin -Resolved (8) Hyperglycemia: New diagnosis, patient not on oral DM meds or insulin at home Blood glucose running in the 300s A1c 5.9 Possibly from pancreatitis? Glycemic control by pharmacist consulted Insulin Lantus and sliding scale aspart started Continue to monitor (9) Electrolyte abnormality: Has multiple electrolytes abnormalities Low potassium, magnesium and phosphate Replaced (10) Hypertension: Hold amlodipine and carvedilol in light of hypotension and bradycardia (11) Hypothyroidism: Continue levothyroxine (12) Bipolar disorder: Depakote reduced from 1000 twice daily to 500 mg twice daily per patient's sister's request Seems to be tolerating reduced dose so far Continue Risperidone (13) Thrombocytopenia: Platelet count stable 60k Chronically runs between 60 and 100 Had peripheral smear done in admission 04/2018 which was unrevealing no signs of bleeding hold Lovenox (14) Leg edema, right: Not on any coagulation for DVT prophylaxis secondary to thrombocytopenia, possible procedures No DVT by ultrasound (15) DVT prophylaxis: SCDS/TEDS HOLD Lovenox for low plt Disposition Evaluation management of sepsis and UTI progress Subjective Follow-up for sepsis, UTI Seen sitting up in bed, comfortable, having breakfast, oriented x2, conversant, bright and alert States he feels better today than yesterday Denies abdominal pain, nausea, fevers or chills Denies shortness of breath, palpitations, dizziness No other symptoms Review of Systems Review of Systems: All systems reviewed & are unremarkable except as noted in HPI & below Physical Exam Physical Exam: General- oriented x 2, not in distress, speaks in sentences with no effort or accessory muscle use Eyes- anicteric Neck- no JVD Lungs- clear yes, no crackles, no wheezing bilaterally Heart- normal rate, regular rhythm; no murmurs Abdomen- normal bowel sounds, nondistended, soft, nontender Extremities- no pretibial edema, no calf tenderness Neuro- alert, oriented x 2; no gross focal neurologic deficits Skin- warm & dry Results & Data Vital Signs (Past 12 Hours) Vital Signs Temp Pulse BP Pulse Ox 12/14/18 03:30 64 97 12/14/18 03:15 59 L 97 12/14/18 03:00 63 94/46 L 98 12/14/18 02:45 57 L 98 12/14/18 02:30 58 L 98 12/14/18 02:15 56 L 104/59 L 98 12/14/18 02:00 53 L 92/59 L 98 12/14/18 01:45 49 L 99/58 L 98 12/14/18 01:30 53 L 94/63 L 98 12/14/18 01:15 51 L 103/61 99 12/14/18 01:00 50 L 103/61 99 12/14/18 00:45 48 L 114/63 99 12/14/18 00:43 34.5 C L 12/14/18 00:36 51 L 100/73 100 12/14/18 00:30 47 L 100 12/14/18 00:15 48 L 107/68 99 12/14/18 00:00 51 L 104/68 99 12/13/18 23:45 50 L 101/70 99 12/13/18 23:30 55 L 115/69 100 12/13/18 23:15 54 L 107/74 100 12/13/18 23:00 61 109/72 96 Laboratory Results Laboratory Results - last 24 hr 12/13/18 12/13/18 12/13/18 11:28 16:36 17:30 WBC RBC Hgb Hct MCV MCH MCHC RDW Std Deviation RDW Coeff of Debra Plt Count MPV Immature Gran % (Auto) Neut % (Auto) Lymph % (Auto) [place] % (Auto) Eos % (Auto) Baso % (Auto) Immature Gran # (Auto) Neut # (Auto) Lymph # (Auto) [place] # (Auto) Eos # (Auto) Baso # (Auto) Dohle Bodies Echinocytes PT INR APTT PTT Ratio Fibrinogen Sodium Potassium Chloride Carbon Dioxide Anion Gap BUN Creatinine Est Cr Clr Drug Dosing Est GFR ( Amer) Est GFR (Non-Af Amer) BUN/Creatinine Ratio Glucose POC Glucose 228 H 245 H 155 H Lactate Calcium Phosphorus Ammonia Troponin I Prealbumin Lipase Random Cortisol Nasal Screen MRSA (PCR) Blood Type Antibody Screen Antibody Identification 12/13/18 12/13/18 12/13/18 18:24 18:24 18:24 WBC 8.55 RBC 2.61 L Hgb 8.0 L Hct 24.4 L MCV 93.5 MCH 30.7 MCHC 32.8 RDW Std Deviation 58.5 H RDW Coeff of Debra 17.1 H Plt Count 55 L MPV 8.3 Immature Gran % (Auto) 0.6 Neut % (Auto) 82.7 Lymph % (Auto) 9.7 [place] % (Auto) 4.6 Eos % (Auto) 2.3 Baso % (Auto) 0.1 Immature Gran # (Auto) 0.05 H Neut # (Auto) 7.07 H Lymph # (Auto) 0.83 L [place] # (Auto) 0.39 Eos # (Auto) 0.20 Baso # (Auto) 0.01 Dohle Bodies 1+ Echinocytes PT INR APTT PTT Ratio Fibrinogen Sodium 129 L Potassium 4.6 Chloride 98 Carbon Dioxide 25 Anion Gap 7.0 BUN 43 H Creatinine 2.47 H Est Cr Clr Drug Dosing 37.9 Est GFR ( Amer) 32.8 Est GFR (Non-Af Amer) 28.3 BUN/Creatinine Ratio 17.4 Glucose 132 H POC Glucose Lactate 1.4 Calcium 8.5 Phosphorus Ammonia Troponin I Prealbumin Lipase Random Cortisol Nasal Screen MRSA (PCR) Blood Type Antibody Screen Antibody Identification 12/13/18 12/13/18 12/13/18 18:58 19:23 19:54 WBC RBC Hgb Hct MCV MCH MCHC RDW Std Deviation RDW Coeff of Debra Plt Count MPV Immature Gran % (Auto) Neut % (Auto) Lymph % (Auto) [place] % (Auto) Eos % (Auto) Baso % (Auto) Immature Gran # (Auto) Neut # (Auto) Lymph # (Auto) [place] # (Auto) Eos # (Auto) Baso # (Auto) Dohle Bodies Echinocytes PT 11.9 INR 1.2 H APTT 30.2 PTT Ratio 1.1 Fibrinogen 463 H Sodium Potassium Chloride Carbon Dioxide Anion Gap BUN Creatinine Est Cr Clr Drug Dosing Est GFR ( Amer) Est GFR (Non-Af Amer) BUN/Creatinine Ratio Glucose POC Glucose 198 H Lactate Calcium Phosphorus Ammonia Troponin I Prealbumin Lipase Random Cortisol Nasal Screen MRSA (PCR) Negative Blood Type Antibody Screen Antibody Identification 12/13/18 12/13/18 12/13/18 19:54 19:54 19:54 WBC RBC Hgb Hct MCV MCH MCHC RDW Std Deviation RDW Coeff of Debra Plt Count MPV Immature Gran % (Auto) Neut % (Auto) Lymph % (Auto) [place] % (Auto) Eos % (Auto) Baso % (Auto) Immature Gran # (Auto) Neut # (Auto) Lymph # (Auto) [place] # (Auto) Eos # (Auto) Baso # (Auto) Dohle Bodies Echinocytes PT INR APTT PTT Ratio Fibrinogen Sodium Potassium Chloride Carbon Dioxide Anion Gap BUN Creatinine Est Cr Clr Drug Dosing Est GFR ( Amer) Est GFR (Non-Af Amer) BUN/Creatinine Ratio Glucose POC Glucose Lactate Calcium Phosphorus 3.1 Ammonia < 10.0 L Troponin I < 0.015 Prealbumin 8.5 L Lipase 1457 H Random Cortisol Nasal Screen MRSA (PCR) Blood Type O Negative Antibody Screen POSITIVE A Antibody Identification Anti-D 12/13/18 12/13/18 12/13/18 19:54 21:00 22:20 WBC RBC Hgb 9.4 L Hct 28.4 L MCV MCH MCHC RDW Std Deviation RDW Coeff of Debra Plt Count MPV Immature Gran % (Auto) Neut % (Auto) Lymph % (Auto) [place] % (Auto) Eos % (Auto) Baso % (Auto) Immature Gran # (Auto) Neut # (Auto) Lymph # (Auto) [place] # (Auto) Eos # (Auto) Baso # (Auto) Dohle Bodies Echinocytes PT INR APTT PTT Ratio Fibrinogen Sodium Potassium Chloride Carbon Dioxide Anion Gap BUN Creatinine Est Cr Clr Drug Dosing Est GFR ( Amer) Est GFR (Non-Af Amer) BUN/Creatinine Ratio Glucose POC Glucose 113 H Lactate Calcium Phosphorus Ammonia Troponin I Prealbumin Lipase Random Cortisol 125.14 Nasal Screen MRSA (PCR) Blood Type Antibody Screen Antibody Identification 12/14/18 12/14/18 12/14/18 04:48 04:48 07:33 WBC 6.66 RBC 2.97 L Hgb 9.2 L Hct 28.1 L MCV 94.6 MCH 31.0 MCHC 32.7 RDW Std Deviation 58.0 H RDW Coeff of Debra 17.1 H Plt Count 60 L MPV 8.7 Immature Gran % (Auto) 0.3 Neut % (Auto) 90.7 Lymph % (Auto) 7.2 [place] % (Auto) 1.4 Eos % (Auto) 0.2 Baso % (Auto) 0.2 Immature Gran # (Auto) 0.02 Neut # (Auto) 6.05 Lymph # (Auto) 0.48 L [place] # (Auto) 0.09 L Eos # (Auto) 0.01 Baso # (Auto) 0.01 Dohle Bodies Echinocytes 1+ PT INR APTT PTT Ratio Fibrinogen Sodium 136 D Potassium 5.0 Chloride 105 Carbon Dioxide 26 Anion Gap 5.0 BUN 39 H Creatinine 2.06 H D Est Cr Clr Drug Dosing 46.2 Est GFR ( Amer) 40.8 Est GFR (Non-Af Amer) 35.2 BUN/Creatinine Ratio 18.8 Glucose 167 H POC Glucose 175 H Lactate Calcium 8.7 Phosphorus 4.5 D Ammonia Troponin I < 0.015 Prealbumin Lipase 306 Random Cortisol Nasal Screen MRSA (PCR) Blood Type Antibody Screen Antibody Identification
[2018-12-14] MEDS ORDERED: LANTUS PER UNIT CHARGE SQ ONE (12:00)
[2018-12-15] MEDS: HYDROCORTISONE SOD 50 MG in SYRINGE 0 ML IV SCH ×3 (01:55→17:13)
[2018-12-15] MEDS ORDERED: INSULIN ASPART 100 UNITS/ML 3 ML PEN SC SCH ×2 (02:00→21:00)
[2018-12-15] MEDS ORDERED: DAPTOMYCIN CONSULT ACTIVE PRN ×2 (03:59→09:42)
[2018-12-15] MEDS: NORMOSOL-R 1,000 ML IV SCH ×3 (04:04→21:30)
[2018-12-15] MEDS: DAPTOmycin 500 MG in SYRINGE 0 ML IV SCH (04:15)
[2018-12-15 04:52] LABS: Hematocrit (blood only) 27.4 % (42-52); Hemoglobin 8.9 g/dL (14.0-18.0); Mean Corpuscular Hgb Conc 32.5 g/dL (32-36); Mean Corpuscular Volume 92.9 fL (80-100); RDW Coefficient of Variation 16.9 % (11.5-14.5); Red Blood Count 2.95 M/uL (4.7-6.1); White Blood Count 5.86 K/uL (4.8-10.8)
[2018-12-15 04:53] LABS: Mean Platelet Volume 8.5 fL (7.4-10.4); Platelet Count 56 K/uL (130-400)
[2018-12-15 05:13] LABS: Calcium 8.8 mg/dl (8.5-10.1); Creatinine Clr Calc Pharmacy 65.6 ml/min; Est GFR (African American) 62.4; Est GFR (Non-African American) 53.8; Magnesium 2.5 mg/dl (1.8-2.4); Potassium 3.8 mmol/L (3.5-5.1)
[2018-12-15 05:15] LABS: Basophils # (auto) 0.01 K/uL (0-0.2); Basophils % (auto) 0.2 %; Immature Granulocytes # (auto) 0.02 K/uL (0.00-0.02); Immature Granulocytes % (auto) 0.3 %; Lymphocytes % (auto) 8.5 %; Monocytes # (auto) 0.19 K/uL (0.11-0.59); Monocytes % (auto) 3.2 %; Neutrophils # (auto) 5.14 K/uL (1.4-6.5); Neutrophils % (auto) 87.8 %; Toxic Vacuolation 1+
[2018-12-15 05:18] LABS: Phosphorus 2.5 mg/dl (2.5-4.9)
[2018-12-15] MEDS: LEVOTHYROXINE SODIUM 150 MCG TABLET PO SCH (06:16)
--- NOTE | 2018-12-15 07:08 | Critical Care Progress Note ---
Date of Service December 15, 2018 Assessment & Plan (1) Admitted to intensive care unit: Reason critically ill: Mr. Tigre Becerril is a 53 y/o male who presents to ICU as transfer from [facility] for hypotension. He has been hospitalized since 11/20 after presenting with pancreatitis and altered mental status. Neuro: Had reduced consciousness from hypotension requiring transfer, but no hypotension after transfer. Hx Bipolar disorder treated with Depakote 500mg BID and Risperidone. Still confused, follows commands, but not oriented to time or place. Ammonia level for encephalopathy was negative Cardiac/Vascular Hx of HTN and RBBB, hyperlipidemia after mother passing away yesterday in hospital, history concerning for takotsubo cardiomyopathy but Trop negative Hemodynamics improved after transfer to ICU HTN continue with Amlodipine 10mg. On Coreg as well, okay to continue History of vasculitis on chronic prednisone lactate negative after transfer, ordered for possible poor end organ perfusion from hypotensive event; also current bacteremia Pulm: Was treated for pneumonia over hospital course with levaquin. Currently requiring supplemental O2 NC GI: treated for pancreatitis during hospital course with conservative management * repeat Lipase ordered on transfer resulted with value 1457, which is 3x upper limit of normal concerning for pancreatitis * repeat lipase was 306 and normal; he tolerated his breakfast without any complaints of abdominal pain; unsure of etiology treated for SBO during hospital course with conservative management Had diarrhea that resolved during stay with c-diff + gene but negative toxin. ID was consulted and did not recommend treatment as not active infection. Ammonia level for encephalopathy - low <10 Renal/Lytes Hx CKD stage 3 with SHIELA on CKD during stay * creatinine improved today to 1.45 Has required multiple replacements over stay for Low potassium, magnesium and phosphate will trend monitor I&O Tara cosmeey as UTI of E. coli and bacteremia with gram negative bacilli concerning for UTI bacteremia. E. coli sensitivities with resistance to Zosyn, Amp, unasyn, 1st gen cephalos porin and concerns for EBL producing organism; will put on Levaquin 750mg q48 (renal dosing) Endo No history of DM but elevated sugars here, A1C 5.9; did have some elevated l evels last night but had increase caloric intake from extra boost Hx Hypothyorid, recent had synthroid increase to 150mcg from 125mcg concern for adrenal insufficiency from chronic prednisone * random cortisol level was 125.14 yesterday, which was ordered after transfer Heme Hx of chronic anemia thought from poor nutrition Hx of chronic thrombocytopenia Did receive 2 units pRBCs on 12/11 Will order PT, PTT, INR, Fibrinogen to ensure no current DIC which were all supportive ruling out DIC trend CBC ID Currently with E. coli UTI and also gram negative bacilli. Treated with Zosyn prior but resistant on susceptibilities today * Bacteremia positive for E. coli sensitivities with resistance to Zosyn, Amp, unasyn, 1st gen cephalosporin and concerns for EBL producing organism; will put on Levaquin 750mg q48 (renal dosing). Pharmacy consult placed for dosing recs. Repeat blood cultures including fungal smear pending - fungal source needed as chronic prednisone therapy causing concern for immunosuppression discontinue caryn Was treated for pneumonia here with a course of Levaquin. He did have Levaquin listed on allergy list as causing rash, but since tolerated course of Levaquin during current visit, okay to proceed. He had one of his two blood cultures from yesterday positive for gram positive cocci in clusters consistent with most likely MSSA as MRSA was negative; he was started on Daptomycin by overnight [facility]isinger attending, but will discontinue since most likely contaminant. This is most likely a contaminant since only 1 of 2 grew positive and his previous bactermeia have been E. coli from UTI source. Will repeat cultures; if MSSA is not contaminant still providing coverage with Levaquin. Lines: PIV 22G right shoulder; 20G left AC; PICC line right upper extremity DVT: No chemical in setting of thrombocytopenia. SCDs ordered Resuscitation status: DNR/DNI. (2) Gram negative septicemia: (3) UTI (urinary tract infection): (4) Leg edema, right: (5) Small bowel obstruction: (6) Hyperglycemia: (7) Electrolyte abnormality: (8) Acute renal failure superimposed on stage 3 chronic kidney disease: (9) Pancreatitis: (10) Acute metabolic encephalopathy: (11) History of fasciotomy: (12) History of tracheostomy: (13) Hypothyroidism: (14) Hyperprolactinemia: (15) Vasculitis: (16) Acute pancreatitis: (17) SHIELA (acute kidney injury): (18) Hyperkalemia: (19) Hip pain, right: (20) Ambulatory dysfunction: (21) Thrombocytopenia: (22) Osteoarthritis: (23) Drug overdose: (24) Schizoaffective disorder, bipolar type: (25) DVT prophylaxis: (26) Altered mental status: (27) Post-traumatic seizures: (28) Hypertension: (29) Chronic pain: (30) History of total right hip arthroplasty: (31) CKD (chronic kidney disease), stage III: (32) ALKA (iron deficiency anemia): (33) Bipolar disorder: (34) RBBB: (35) Hyperlipidemia: (36) JHOANA (obstructive sleep apnea): (37) Reflux esophagitis: (38) Goiter: Supervising Physician Co-Signing Physician Notes Dr. Melgar was resident physician during care of patient. I separately evaluated patient for jackson portions of the history and the exam. I was present during the critical portion of medical decision making, and I discussed the case with the resident. I generally agree with the findings and plan. Blood sugars have been rather variable. This morning his blood sugar was 138 prior to breakfast, I will not adjust insulin at this time, the patient may require additional basal as per the pharmacy glycemic consult notes from November 29. He is currently not ordered basal insulin however if his blood sugars trend up throughout the day especially after meals I will consider decreasing the total basal dose as noted in the pharmacy recommendations but he may benefit from some basal overnight. Patient is no longer hypotensive and in fact hypertensive we have reinstituted his Coreg. We are now receiving effective antibiotic therapy for his gram- negative septicemia repeat blood cultures are pending, there is no growth at this time, however I will add an additional set for tomorrow morning as the blood cultures were obtained prior to speciation and subsequent change of antibiotics. Patient had gram-positive cocci from previous set of blood cultures, the MRSA PCR was negative, it is 1 blood culture I am considering this to be a contaminant we do have repeat blood cultures pending as well as a second set ordered for tomorrow. He is significantly improved clinically I do not feel the need to treat, upon further examination of the record the hospitalist team was notified and daptomycin was initiated I am discontinuing the daptomycin. While the patient is very medically complex his critical care needs have largely resolved and he would be stable for downgrade out of the ICU today. Subjective Caveat - History limited by: Altered Mental Status No acute events overnight. Tolerating food without difficulties. He does not complain of abdominal pain, chest pain, shortness of breath, nausea. He did request an extra boost after dinner last night, which he was given. Review of Systems Review of Systems: Unobtainable due to mental health condition (limited by altered mental status) Physical Exam Constitutional: + morbidly obese, + altered mental status, cooperative and comfortable Eyes: + eyelid abnormality Neck: trachea midline Respiratory: normal respiratory effort; no respiratory distress and does not use accessory muscles Auscultation: + diminished lung sounds Cardiovascular: Rate/Rhythm: regular rate and regular rhythm Gastrointestinal (Abdomen): Percussion/Palpation: abdomen soft; abdomen nontender and no guarding Musculoskeletal: Head/Neck/Chest: normocephalic and head atraumatic Skin: + dry skin Neurologic: moves all extremities, awake and + confused; no focal motor deficits Psychiatric: Orientation: alert and oriented to person; + not oriented to place and + not oriented to time Results & Data Vital Signs (Past 12 Hours) Vital Signs Temp Pulse Resp BP Pulse Ox 12/15/18 04:15 36.3 C L 55 L 12 99 12/15/18 04:00 56 L 12 144/80 H 99 12/15/18 03:45 56 L 13 99 12/15/18 03:30 59 L 20 100 12/15/18 03:15 62 13 100 12/15/18 03:01 61 17 167/85 H 100 12/15/18 03:00 59 L 19 100 12/15/18 02:51 61 12 177/83 H 96 12/15/18 02:45 68 12/15/18 02:15 66 20 100 12/15/18 02:00 78 17 149/105 H 73 L 12/15/18 01:45 65 18 98 12/15/18 01:30 60 14 99 12/15/18 01:15 69 19 100 12/15/18 01:00 70 19 155/98 H 98 12/15/18 00:45 66 13 99 12/15/18 00:30 81 18 100 12/15/18 00:15 57 L 12 99 12/15/18 00:01 69 18 134/92 99 12/15/18 00:00 68 21 99 12/14/18 23:45 62 16 100 12/14/18 23:30 65 14 100 12/14/18 23:15 36.4 C L 65 16 12/14/18 23:01 65 20 161/93 H 100 12/14/18 23:00 63 17 100 12/14/18 22:45 70 16 100 12/14/18 22:30 68 16 99 12/14/18 22:15 66 17 100 12/14/18 22:01 74 17 174/98 H 100 12/14/18 22:00 66 14 99 12/14/18 21:45 68 20 98 12/14/18 21:32 66 15 165/92 H 97 12/14/18 21:30 72 15 97 12/14/18 21:15 68 15 96 12/14/18 21:00 67 15 163/130 H 99 12/14/18 20:45 60 17 100 12/14/18 20:30 68 12 100 12/14/18 20:15 64 18 100 12/14/18 20:03 62 18 148/78 H 100 12/14/18 20:00 36.4 C L 62 22 148/78 H 100 12/14/18 19:45 63 15 97 12/14/18 19:30 62 20 98 12/14/18 19:15 69 18 95 Laboratory Results Laboratory Results - last 24 hr 12/13/18 12/14/18 12/14/18 20:16 04:48 07:33 WBC RBC Hgb Hct MCV MCH MCHC RDW Std Deviation RDW Coeff of Debra Plt Count MPV Immature Gran % (Auto) Neut % (Auto) Lymph % (Auto) [place] % (Auto) Eos % (Auto) Baso % (Auto) Immature Gran # (Auto) Neut # (Auto) Lymph # (Auto) [place] # (Auto) Eos # (Auto) Baso # (Auto) Toxic Vacuolation Sodium Potassium Chloride Carbon Dioxide Anion Gap BUN Creatinine Est Cr Clr Drug Dosing Est GFR ( Amer) Est GFR (Non-Af Amer) BUN/Creatinine Ratio Glucose POC Glucose 175 H Calcium Phosphorus Magnesium Total Creatine Kinase Lipase 306 Bld Cult Staph aureus PCR Negative Blood Culture MRSA PCR Negative 12/14/18 12/14/18 12/14/18 11:29 16:33 21:44 WBC RBC Hgb Hct MCV MCH MCHC RDW Std Deviation RDW Coeff of Debra Plt Count MPV Immature Gran % (Auto) Neut % (Auto) Lymph % (Auto) [place] % (Auto) Eos % (Auto) Baso % (Auto) Immature Gran # (Auto) Neut # (Auto) Lymph # (Auto) [place] # (Auto) Eos # (Auto) Baso # (Auto) Toxic Vacuolation Sodium Potassium Chloride Carbon Dioxide Anion Gap BUN Creatinine Est Cr Clr Drug Dosing Est GFR ( Amer) Est GFR (Non-Af Amer) BUN/Creatinine Ratio Glucose POC Glucose 293 H 167 H 210 H Calcium Phosphorus Magnesium Total Creatine Kinase Lipase Bld Cult Staph aureus PCR Blood Culture MRSA PCR 12/15/18 12/15/18 12/15/18 01:47 04:21 04:21 WBC 5.86 RBC 2.95 L Hgb 8.9 L Hct 27.4 L MCV 92.9 MCH 30.2 MCHC 32.5 RDW Std Deviation 58.0 H RDW Coeff of Debra 16.9 H Plt Count 56 L MPV 8.5 Immature Gran % (Auto) 0.3 Neut % (Auto) 87.8 Lymph % (Auto) 8.5 [place] % (Auto) 3.2 Eos % (Auto) 0.0 Baso % (Auto) 0.2 Immature Gran # (Auto) 0.02 Neut # (Auto) 5.14 Lymph # (Auto) 0.50 L [place] # (Auto) 0.19 Eos # (Auto) 0.00 Baso # (Auto) 0.01 Toxic Vacuolation 1+ Sodium 139 Potassium 3.8 D Chloride 105 Carbon Dioxide 29 Anion Gap 5.0 BUN 33 H Creatinine 1.45 H D Est Cr Clr Drug Dosing 65.6 Est GFR ( Amer) 62.4 Est GFR (Non-Af Amer) 53.8 BUN/Creatinine Ratio 23.0 H Glucose 129 H POC Glucose 223 H Calcium 8.8 Phosphorus 2.5 D Magnesium 2.5 H Total Creatine Kinase 13 L Lipase Bld Cult Staph aureus PCR Blood Culture MRSA PCR Medications Administered Acetaminophen (Tylenol) 650 mg PO Q4H PRN PRN Reason: Pain or Fever Stop: 12/20/18 15:54 Last Admin: 12/11/18 18:41 Dose: 650 mg Documented by: [id number] Admin: 11/21/18 16:46 Dose: 650 mg Documented by: [id number] Carvedilol (Coreg) 12.5 mg PO BIDM NIC Stop: 12/21/18 16:59 Last Admin: 12/13/18 17:28 Dose: Not Given Documented by: [id number] Admin: 12/13/18 08:07 Dose: Not Given Documented by: [id number] Admin: 12/12/18 17:16 Dose: 12.5 mg Documented by: [id number] Admin: 12/12/18 07:09 Dose: 12.5 mg Documented by: [id number] Admin: 12/11/18 16:57 Dose: 12.5 mg Documented by: [id number] Admin: 12/11/18 07:24 Dose: 12.5 mg Documented by: [id number] Admin: 12/10/18 17:38 Dose: 12.5 mg Documented by: [id number] Admin: 12/10/18 08:00 Dose: 12.5 mg Documented by: [id number] Admin: 12/09/18 17:16 Dose: 12.5 mg Documented by: [id number] Admin: 12/09/18 08:13 Dose: 12.5 mg Documented by: [id number] Admin: 12/08/18 17:05 Dose: 12.5 mg Documented by: [id number] Admin: 12/08/18 07:57 Dose: 12.5 mg Documented by: [id number] Admin: 12/07/18 17:01 Dose: 12.5 mg Documented by: [id number] Admin: 12/07/18 08:41 Dose: Not Given Documented by: [id number] Admin: 12/06/18 17:51 Dose: 12.5 mg Documented by: [id number] Admin: 12/06/18 08:47 Dose: 12.5 mg Documented by: [id number] Admin: 12/05/18 18:07 Dose: Not Given Documented by: [id number] Admin: 12/05/18 08:43 Dose: 12.5 mg Documented by: [id number] Admin: 12/04/18 17:51 Dose: 12.5 mg Documented by: [id number] Admin: 12/04/18 08:06 Dose: 12.5 mg Documented by: [id number] Admin: 12/03/18 17:26 Dose: 12.5 mg Documented by: [id number] Admin: 12/03/18 07:48 Dose: 12.5 mg Documented by: [id number] Admin: 12/02/18 17:04 Dose: 12.5 mg Documented by: [id number] Admin: 12/02/18 07:33 Dose: Not Given Documented by: [id number] Admin: 12/01/18 16:29 Dose: Not Given Documented by: [id number] Admin: 12/01/18 09:03 Dose: Not Given Documented by: [id number] Admin: 11/30/18 17:28 Dose: 12.5 mg Documented by: [id number] Admin: 11/30/18 08:17 Dose: 12.5 mg Documented by: [id number] Admin: 11/29/18 18:04 Dose: Not Given Documented by: [id number] Admin: 11/29/18 09:16 Dose: 12.5 mg Documented by: [id number] Admin: 11/28/18 18:36 Dose: 12.5 mg Documented by: [id number] Admin: 11/28/18 08:46 Dose: 12.5 mg Documented by: [id number] Admin: 11/27/18 16:37 Dose: Not Given Documented by: [id number] Admin: 11/27/18 07:47 Dose: Not Given Documented by: [id number] Admin: 11/26/18 15:48 Dose: Not Given Documented by: [id number] Admin: 11/26/18 07:30 Dose: Not Given Documented by: [id number] Admin: 11/25/18 16:48 Dose: 12.5 mg Documented by: [id number] Admin: 11/25/18 07:31 Dose: Not Given Documented by: [id number] Admin: 11/24/18 16:19 Dose: Not Given Documented by: [id number] Admin: 11/24/18 07:38 Dose: Not Given Documented by: [id number] Admin: 11/23/18 17:47 Dose: Not Given Documented by: [id number] Admin: 11/23/18 07:29 Dose: Not Given Documented by: [id number] Admin: 11/22/18 17:12 Dose: Not Given Documented by: [id number] Admin: 11/22/18 08:42 Dose: 12.5 mg Documented by: [id number] Admin: 11/21/18 16:48 Dose: 12.5 mg Documented by: [id number] Cyanocobalamin (Vitamin B-12) 1,000 mcg PO DAILY NIC Stop: 12/21/18 11:14 Last Admin: 12/14/18 09:25 Dose: 1,000 mcg Documented by: [id number] Admin: 12/13/18 08:07 Dose: 1,000 mcg Documented by: [id number] Admin: 12/12/18 07:08 Dose: 1,000 mcg Documented by: [id number] Admin: 12/11/18 07:23 Dose: 1,000 mcg Documented by: [id number] Admin: 12/10/18 08:01 Dose: 1,000 mcg Documented by: [id number] Admin: 12/09/18 08:13 Dose: 1,000 mcg Documented by: [id number] Admin: 12/08/18 07:58 Dose: 1,000 mcg Documented by: [id number] Admin: 12/07/18 07:56 Dose: 1,000 mcg Documented by: [id number] Admin: 12/06/18 08:48 Dose: 1,000 mcg Documented by: [id number] Admin: 12/05/18 08:43 Dose: 1,000 mcg Documented by: [id number] Admin: 12/04/18 08:05 Dose: 1,000 mcg Documented by: [id number] Admin: 12/03/18 07:49 Dose: 1,000 mcg Documented by: [id number] Admin: 12/02/18 07:34 Dose: Not Given Documented by: [id number] Admin: 12/01/18 09:04 Dose: Not Given Documented by: [id number] Admin: 11/30/18 08:17 Dose: 1,000 mcg Documented by: [id number] Admin: 11/29/18 09:15 Dose: 1,000 mcg Documented by: [id number] Admin: 11/28/18 08:48 Dose: 1,000 mcg Documented by: [id number] Admin: 11/27/18 07:46 Dose: 1,000 mcg Documented by: [id number] Admin: 11/26/18 07:38 Dose: 1,000 mcg Documented by: [id number] Admin: 11/25/18 07:33 Dose: 1,000 mcg Documented by: [id number] Admin: 11/24/18 07:39 Dose: 1,000 mcg Documented by: [id number] Admin: 11/23/18 07:44 Dose: 1,000 mcg Documented by: [id number] Admin: 11/22/18 08:41 Dose: 1,000 mcg Documented by: [id number] Admin: 11/21/18 11:34 Dose: Not Given Documented by: [id number] Dextrose (Dextrose 50%) 25 - 50 ml IV UD PRN; Protocol PRN Reason: Hypoglycemia Protocol Stop: 12/30/18 16:59 Last Admin: 11/30/18 22:30 Dose: 25 ml Documented by: [id number] Admin: 11/30/18 17:41 Dose: 25 ml Documented by: [id number] Divalproex Sodium (Depakote Delay Release) 500 mg PO BID NIC Stop: 12/27/18 08:59 Last Admin: 12/14/18 21:37 Dose: 500 mg Documented by: [id number] Admin: 12/14/18 09:26 Dose: 500 mg Documented by: [id number] Admin: 12/13/18 21:16 Dose: 500 mg Documented by: [id number] Admin: 12/13/18 08:07 Dose: 500 mg Documented by: [id number] Admin: 12/12/18 20:50 Dose: 500 mg Documented by: [id number] Admin: 12/12/18 07:08 Dose: 500 mg Documented by: [id number] Admin: 12/11/18 21:28 Dose: 500 mg Documented by: [id number] Admin: 12/11/18 07:23 Dose: 500 mg Documented by: [id number] Admin: 12/10/18 20:27 Dose: 500 mg Documented by: [id number] Admin: 12/10/18 08:00 Dose: 500 mg Documented by: [id number] Admin: 12/09/18 20:37 Dose: 500 mg Documented by: [id number] Admin: 12/09/18 08:13 Dose: 500 mg Documented by: [id number] Admin: 12/08/18 20:06 Dose: 500 mg Documented by: [id number] Admin: 12/08/18 07:57 Dose: 500 mg Documented by: [id number] Admin: 12/07/18 21:12 Dose: 500 mg Documented by: [id number] Admin: 12/07/18 08:41 Dose: 500 mg Documented by: [id number] Admin: 12/06/18 20:45 Dose: 500 mg Documented by: [id number] Admin: 12/06/18 08:48 Dose: 500 mg Documented by: [id number] Admin: 12/05/18 21:00 Dose: 500 mg Documented by: [id number] Admin: 12/05/18 08:43 Dose: 500 mg Documented by: [id number] Admin: 12/04/18 20:35 Dose: 500 mg Documented by: [id number] Admin: 12/04/18 08:07 Dose: 500 mg Documented by: [id number] Admin: 12/03/18 21:12 Dose: 500 mg Documented by: [id number] Admin: 12/03/18 07:49 Dose: 500 mg Documented by: [id number] Admin: 12/02/18 21:36 Dose: 500 mg Documented by: [id number] Admin: 12/02/18 07:33 Dose: Not Given Documented by: [id number] Admin: 12/01/18 21:13 Dose: Not Given Documented by: [id number] Admin: 12/01/18 09:03 Dose: Not Given Documented by: [id number] Admin: 11/30/18 21:50 Dose: 500 mg Documented by: [id number] Admin: 11/30/18 08:17 Dose: 500 mg Documented by: [id number] Admin: 11/29/18 21:01 Dose: 500 mg Documented by: [id number] Admin: 11/29/18 09:16 Dose: 500 mg Documented by: [id number] Admin: 11/28/18 22:38 Dose: 500 mg Documented by: [id number] Admin: 11/28/18 22:26 Dose: Not Given Documented by: [id number] Admin: 11/28/18 08:46 Dose: 500 mg Documented by: [id number] Admin: 11/27/18 20:33 Dose: 500 mg Documented by: [id number] Admin: 11/27/18 07:47 Dose: 500 mg Documented by: [id number] Duloxetine HCl (Cymbalta) 60 mg PO DAILY NIC Stop: 12/21/18 11:14 Last Admin: 12/14/18 09:26 Dose: 60 mg Documented by: [id number] Admin: 12/13/18 08:07 Dose: 60 mg Documented by: [id number] Admin: 12/12/18 07:09 Dose: 60 mg Documented by: [id number] Admin: 12/11/18 07:24 Dose: 60 mg Documented by: [id number] Admin: 12/10/18 08:00 Dose: 60 mg Documented by: [id number] Admin: 12/09/18 08:13 Dose: 60 mg Documented by: [id number] Admin: 12/08/18 07:58 Dose: 60 mg Documented by: [id number] Admin: 12/07/18 07:56 Dose: 60 mg Documented by: [id number] Admin: 12/06/18 08:47 Dose: 60 mg Documented by: [id number] Admin: 12/05/18 08:43 Dose: 60 mg Documented by: [id number] Admin: 12/04/18 08:07 Dose: 60 mg Documented by: [id number] Admin: 12/03/18 07:48 Dose: 60 mg Documented by: [id number] Admin: 12/02/18 07:33 Dose: Not Given Documented by: [id number] Admin: 12/01/18 09:03 Dose: Not Given Documented by: [id number] Admin: 11/30/18 08:17 Dose: 60 mg Documented by: [id number] Admin: 11/29/18 09:15 Dose: 60 mg Documented by: [id number] Admin: 11/28/18 08:45 Dose: 60 mg Documented by: [id number] Admin: 11/27/18 07:46 Dose: 60 mg Documented by: [id number] Admin: 11/26/18 07:39 Dose: 60 mg Documented by: [id number] Admin: 11/25/18 07:32 Dose: 60 mg Documented by: [id number] Admin: 11/24/18 07:38 Dose: 60 mg Documented by: [id number] Admin: 11/23/18 07:45 Dose: 60 mg Documented by: [id number] Admin: 11/22/18 08:41 Dose: 60 mg Documented by: [id number] Admin: 11/21/18 11:34 Dose: Not Given Documented by: [id number] Glucose (Dex4 Glucose) 4 - 8 tabs PO UD PRN; Protocol PRN Reason: Hypoglycemia Protocol Stop: 12/30/18 16:59 Last Admin: 11/30/18 17:27 Dose: 4 tabs Documented by: [id number] Admin: 11/30/18 17:10 Dose: 8 tabs Documented by: [id number] Hydrocortisone Sodium (Succinate 50 mg/ Syringe) 1 mls @ 4 mls/min IV Q8H NIC Stop: 01/13/19 01:59 Last Admin: 12/15/18 01:55 Dose: 4 mls/min Documented by: [id number] Admin: 12/14/18 17:20 Dose: 4 mls/min Documented by: [id number] Admin: 12/14/18 09:26 Dose: 4 mls/min Documented by: [id number] Admin: 12/14/18 02:53 Dose: 4 mls/min Documented by: [id number] Parenteral Electrolytes (Normosol-R) 1,000 mls @ 125 mls/hr IV .Q8H NIC Stop: 01/12/19 21:14 Last Admin: 12/15/18 04:04 Dose: 125 mls/hr Documented by: [id number] Infusion: 12/15/18 04:04 Dose: 125 mls/hr Documented by: [id number] Admin: 12/14/18 21:35 Dose: 125 mls/hr Documented by: [id number] Infusion: 12/14/18 21:18 Dose: 125 mls/hr Documented by: [id number] Admin: 12/14/18 13:18 Dose: 125 mls/hr Documented by: [id number] Infusion: 12/14/18 13:18 Dose: 125 mls/hr Documented by: [id number] Admin: 12/14/18 05:20 Dose: 125 mls/hr Documented by: [id number] Infusion: 12/14/18 05:20 Dose: 125 mls/hr Documented by: [id number] Admin: 12/13/18 21:26 Dose: 125 mls/hr Documented by: [id number] Levofloxacin/Dextrose (Levaquin/D5w) 750 mg in 150 mls @ 100 mls/hr IV Q48H NIC Stop: 12/28/18 08:59 Last Infusion: 12/14/18 11:19 Dose: 0 mls/hr Documented by: [id number] Admin: 12/14/18 09:26 Dose: 100 mls/hr Documented by: [id number] Daptomycin 500 mg/ Syringe 10 mls @ 5 mls/min IV Q24H NIC; Protocol Stop: 12/29/18 03:59 Last Admin: 12/15/18 04:15 Dose: 5 mls/min Documented by: [id number] Imipramine HCl (Tofranil) 25 mg PO TID NIC Stop: 12/21/18 13:59 Last Admin: 12/14/18 21:38 Dose: 25 mg Documented by: [id number] Admin: 12/14/18 13:30 Dose: 25 mg Documented by: [id number] Admin: 12/14/18 09:26 Dose: 25 mg Documented by: [id number] Admin: 12/13/18 21:17 Dose: 25 mg Documented by: [id number] Admin: 12/13/18 13:28 Dose: 25 mg Documented by: [id number] Admin: 12/13/18 08:07 Dose: 25 mg Documented by: [id number] Admin: 12/12/18 20:51 Dose: 25 mg Documented by: [id number] Admin: 12/12/18 13:30 Dose: 25 mg Documented by: [id number] Admin: 12/12/18 07:08 Dose: 25 mg Documented by: [id number] Admin: 12/11/18 21:27 Dose: 25 mg Documented by: [id number] Admin: 12/11/18 13:54 Dose: 25 mg Documented by: [id number] Admin: 12/11/18 07:23 Dose: 25 mg Documented by: [id number] Admin: 12/10/18 20:29 Dose: 25 mg Documented by: [id number] Admin: 12/10/18 13:01 Dose: 25 mg Documented by: [id number] Admin: 12/10/18 08:01 Dose: 25 mg Documented by: [id number] Admin: 12/09/18 20:37 Dose: 25 mg Documented by: [id number] Admin: 12/09/18 13:50 Dose: 25 mg Documented by: [id number] Admin: 12/09/18 08:13 Dose: 25 mg Documented by: [id number] Admin: 12/08/18 20:06 Dose: 25 mg Documented by: [id number] Admin: 12/08/18 14:17 Dose: 25 mg Documented by: [id number] Admin: 12/08/18 07:56 Dose: 25 mg Documented by: [id number] Admin: 12/07/18 21:09 Dose: 25 mg Documented by: [id number] Admin: 12/07/18 14:19 Dose: 25 mg Documented by: [id number] Admin: 12/07/18 07:57 Dose: 25 mg Documented by: [id number] Admin: 12/06/18 20:45 Dose: 25 mg Documented by: [id number] Admin: 12/06/18 13:25 Dose: 25 mg Documented by: [id number] Admin: 12/06/18 08:47 Dose: 25 mg Documented by: [id number] Admin: 12/05/18 21:01 Dose: 25 mg Documented by: [id number] Admin: 12/05/18 15:06 Dose: 25 mg Documented by: [id number] Admin: 12/05/18 08:43 Dose: 25 mg Documented by: [id number] Admin: 12/04/18 20:36 Dose: 25 mg Documented by: [id number] Admin: 12/04/18 14:14 Dose: 25 mg Documented by: [id number] Admin: 12/04/18 08:06 Dose: 25 mg Documented by: [id number] Admin: 12/03/18 21:14 Dose: 25 mg Documented by: [id number] Admin: 12/03/18 13:01 Dose: 25 mg Documented by: [id number] Admin: 12/03/18 07:49 Dose: 25 mg Documented by: [id number] Admin: 12/02/18 21:37 Dose: 25 mg Documented by: [id number] Admin: 12/02/18 13:53 Dose: 25 mg Documented by: [id number] Admin: 12/02/18 07:34 Dose: Not Given Documented by: [id number] Admin: 12/01/18 21:13 Dose: Not Given Documented by: [id number] Admin: 12/01/18 13:42 Dose: Not Given Documented by: [id number] Admin: 12/01/18 09:04 Dose: Not Given Documented by: [id number] Admin: 11/30/18 21:50 Dose: 25 mg Documented by: [id number] Admin: 11/30/18 14:00 Dose: 25 mg Documented by: [id number] Admin: 11/30/18 08:18 Dose: 25 mg Documented by: [id number] Admin: 11/29/18 21:03 Dose: 25 mg Documented by: [id number] Admin: 11/29/18 13:04 Dose: 25 mg Documented by: [id number] Admin: 11/29/18 09:14 Dose: 25 mg Documented by: [id number] Admin: 11/28/18 22:38 Dose: 25 mg Documented by: [id number] Admin: 11/28/18 22:26 Dose: Not Given Documented by: [id number] Admin: 11/28/18 15:42 Dose: 25 mg Documented by: [id number] Admin: 11/28/18 08:46 Dose: 25 mg Documented by: [id number] Admin: 11/27/18 20:34 Dose: 25 mg Documented by: [id number] Admin: 11/27/18 11:49 Dose: 25 mg Documented by: [id number] Admin: 11/27/18 07:47 Dose: 25 mg Documented by: [id number] Admin: 11/26/18 19:59 Dose: 25 mg Documented by: [id number] Admin: 11/26/18 12:08 Dose: 25 mg Documented by: [id number] Admin: 11/26/18 07:39 Dose: 25 mg Documented by: [id number] Admin: 11/25/18 20:43 Dose: 25 mg Documented by: [id number] Admin: 11/25/18 15:21 Dose: Not Given Documented by: [id number] Admin: 11/25/18 07:32 Dose: 25 mg Documented by: [id number] Admin: 11/24/18 20:47 Dose: 25 mg Documented by: [id number] Admin: 11/24/18 14:47 Dose: Not Given Documented by: [id number] Admin: 11/24/18 07:39 Dose: 25 mg Documented by: [id number] Admin: 11/23/18 20:52 Dose: 25 mg Documented by: [id number] Admin: 11/23/18 15:02 Dose: 25 mg Documented by: [id number] Admin: 11/23/18 07:43 Dose: 25 mg Documented by: [id number] Admin: 11/22/18 20:59 Dose: 25 mg Documented by: [id number] Admin: 11/22/18 14:02 Dose: 25 mg Documented by: [id number] Admin: 11/22/18 08:43 Dose: 25 mg Documented by: [id number] Admin: 11/21/18 21:16 Dose: 25 mg Documented by: [id number] Admin: 11/21/18 12:56 Dose: Not Given Documented by: [id number] Insulin Aspart (Novolog Flexpen) 0 units SC ACHS [facility]; Protocol Stop: 01/01/19 16:29 Last Admin: 12/14/18 21:46 Dose: 5 units Documented by: [id number] Cosigned by: [id number] Admin: 12/14/18 17:19 Dose: 18 units Documented by: [id number] Cosigned by: [id number] Admin: 12/14/18 12:03 Dose: 20 units Documented by: [id number] Cosigned by: [id number] Admin: 12/14/18 09:24 Dose: 13 units Documented by: [id number] Cosigned by: [id number] Admin: 12/13/18 21:07 Dose: Not Given Documented by: [id number] Cosigned by: [id number] Admin: 12/13/18 17:15 Dose: 4 units Documented by: [id number] Cosigned by: [id number] Admin: 12/13/18 12:47 Dose: 12 units Documented by: [id number] Cosigned by: [id number] Admin: 12/13/18 08:06 Dose: 6 units Documented by: [id number] Cosigned by: [id number] Admin: 12/12/18 20:49 Dose: 1 units Documented by: [id number] Cosigned by: [id number] Admin: 12/12/18 17:15 Dose: 6 units Documented by: [id number] Cosigned by: [id number] Admin: 12/12/18 12:18 Dose: 8 units Documented by: [id number] Cosigned by: [id number] Admin: 12/12/18 08:11 Dose: 6 units Documented by: [id number] Cosigned by: [id number] Admin: 12/11/18 21:31 Dose: 1 units Documented by: [id number] Cosigned by: [id number] Admin: 12/11/18 17:07 Dose: 2 units Documented by: [id number] Cosigned by: [id number] Admin: 12/11/18 12:23 Dose: 6 units Documented by: [id number] Cosigned by: [id number] Admin: 12/11/18 08:12 Dose: 6 units Documented by: [id number] Cosigned by: [id number] Admin: 12/10/18 20:27 Dose: 1 units Documented by: [id number] Cosigned by: [id number] Admin: 12/10/18 17:38 Dose: 9 units Documented by: [id number] Cosigned by: [id number] Admin: 12/10/18 13:01 Dose: 5 units Documented by: [id number] Cosigned by: [id number] Admin: 12/10/18 08:00 Dose: 6 units Documented by: [id number] Cosigned by: [id number] Admin: 12/09/18 20:38 Dose: 1 units Documented by: [id number] Cosigned by: [id number] Admin: 12/09/18 18:22 Dose: 4 units Documented by: [id number] Cosigned by: [id number] Admin: 12/09/18 12:22 Dose: 4 units Documented by: [id number] Cosigned by: [id number] Admin: 12/09/18 08:13 Dose: 5 units Documented by: [id number] Cosigned by: [id number] Admin: 12/08/18 21:11 Dose: 1 units Documented by: [id number] Cosigned by: [id number] Admin: 12/08/18 17:06 Dose: 4 units Documented by: [id number] Cosigned by: [id number] Admin: 12/08/18 12:14 Dose: 7 units Documented by: [id number] Cosigned by: [id number] Admin: 12/08/18 08:01 Dose: 6 units Documented by: [id number] Cosigned by: [id number] Admin: 12/07/18 21:13 Dose: 1 units Documented by: [id number] Cosigned by: [id number] Admin: 12/07/18 17:02 Dose: 10 units Documented by: [id number] Cosigned by: [id number] Admin: 12/07/18 12:37 Dose: 7 units Documented by: [id number] Cosigned by: [id number] Admin: 12/07/18 08:00 Dose: 4 units Documented by: [id number] Cosigned by: [id number] Admin: 12/06/18 21:31 Dose: Not Given Documented by: [id number] Cosigned by: [id number] Admin: 12/06/18 17:47 Dose: 4 units Documented by: [id number] Cosigned by: [id number] Admin: 12/06/18 13:24 Dose: 10 units Documented by: [id number] Cosigned by: [id number] Admin: 12/06/18 08:50 Dose: 6 units Documented by: [id number] Cosigned by: [id number] Admin: 12/05/18 20:55 Dose: 1 units Documented by: [id number] Cosigned by: [id number] Admin: 12/05/18 17:16 Dose: 2 units Documented by: [id number] Cosigned by: [id number] Admin: 12/05/18 12:57 Dose: Not Given Documented by: [id number] Cosigned by: [id number] Admin: 12/05/18 08:40 Dose: 5 units Documented by: [id number] Cosigned by: [id number] Admin: 12/04/18 20:20 Dose: Not Given Documented by: [id number] Cosigned by: [id number] Admin: 12/04/18 17:47 Dose: 3 units Documented by: [id number] Cosigned by: [id number] Admin: 12/04/18 12:49 Dose: 4 units Documented by: [id number] Cosigned by: [id number] Admin: 12/04/18 08:10 Dose: 6 units Documented by: [id number] Cosigned by: [id number] Admin: 12/03/18 20:17 Dose: Not Given Documented by: [id number] Cosigned by: [id number] Admin: 12/03/18 17:21 Dose: 5 units Documented by: [id number] Cosigned by: [id number] Admin: 12/03/18 13:01 Dose: 6 units Documented by: [id number] Cosigned by: [id number] Admin: 12/03/18 07:56 Dose: 1 units Documented by: [id number] Cosigned by: [id number] Admin: 12/02/18 22:05 Dose: Not Given Documented by: [id number] Cosigned by: [id number] Admin: 12/02/18 17:38 Dose: 2 units Documented by: [id number] Cosigned by: [id number] Levothyroxine Sodium (Synthroid) 150 mcg PO DAILYBB [facility] Stop: 12/29/18 06:29 Last Admin: 12/15/18 06:16 Dose: 150 mcg Documented by: [id number] Admin: 12/14/18 05:20 Dose: 150 mcg Documented by: [id number] Admin: 12/13/18 06:05 Dose: 150 mcg Documented by: [id number] Admin: 12/12/18 06:32 Dose: 150 mcg Documented by: [id number] Admin: 12/11/18 06:14 Dose: 150 mcg Documented by: [id number] Admin: 12/10/18 06:07 Dose: 150 mcg Documented by: [id number] Admin: 12/09/18 06:07 Dose: 150 mcg Documented by: [id number] Admin: 12/08/18 06:25 Dose: 150 mcg Documented by: [id number] Admin: 12/07/18 12:47 Dose: Not Given Documented by: [id number] Admin: 12/06/18 05:08 Dose: 150 mcg Documented by: [id number] Admin: 12/05/18 06:29 Dose: 150 mcg Documented by: [id number] Admin: 12/04/18 05:56 Dose: 150 mcg Documented by: [id number] Admin: 12/03/18 05:06 Dose: 150 mcg Documented by: [id number] Admin: 12/02/18 05:25 Dose: Not Given Documented by: [id number] Admin: 12/01/18 06:10 Dose: Not Given Documented by: [id number] Admin: 11/30/18 05:44 Dose: 150 mcg Documented by: [id number] Admin: 11/29/18 05:30 Dose: 150 mcg Documented by: [id number] Magnesium Oxide (Mag-Ox) 400 mg PO BID NIC Stop: 01/07/19 11:59 Last Admin: 12/14/18 21:41 Dose: 400 mg Documented by: [id number] Admin: 12/14/18 09:26 Dose: 400 mg Documented by: [id number] Admin: 12/13/18 21:17 Dose: 400 mg Documented by: [id number] Admin: 12/13/18 08:07 Dose: 400 mg Documented by: [id number] Admin: 12/12/18 20:51 Dose: 400 mg Documented by: [id number] Admin: 12/12/18 07:09 Dose: 400 mg Documented by: [id number] Admin: 12/11/18 21:28 Dose: 400 mg Documented by: [id number] Admin: 12/11/18 07:23 Dose: 400 mg Documented by: [id number] Admin: 12/10/18 20:27 Dose: 400 mg Documented by: [id number] Admin: 12/10/18 08:01 Dose: 400 mg Documented by: [id number] Admin: 12/09/18 20:37 Dose: 400 mg Documented by: [id number] Admin: 12/09/18 08:13 Dose: 400 mg Documented by: [id number] Admin: 12/08/18 20:05 Dose: 400 mg Documented by: [id number] Admin: 12/08/18 12:36 Dose: 400 mg Documented by: [id number] Miscellaneous (Carbohydrates For Hypoglycemia) 15 - 30 gm PO UD PRN PRN Reason: Hypoglycemia Treatment Stop: 12/30/18 16:59 Last Admin: 11/30/18 16:56 Dose: 15 gm Documented by: [id number] Multivitamins (Multivitamin Tab) 1 tab PO QAM [facility] Stop: 12/24/18 17:59 Last Admin: 12/14/18 09:25 Dose: 1 tab Documented by: [id number] Admin: 12/13/18 08:07 Dose: 1 tab Documented by: [id number] Admin: 12/12/18 07:09 Dose: 1 tab Documented by: [id number] Admin: 12/11/18 07:23 Dose: 1 tab Documented by: [id number] Admin: 12/10/18 08:00 Dose: 1 tab Documented by: [id number] Admin: 12/09/18 08:13 Dose: 1 tab Documented by: [id number] Admin: 12/08/18 07:58 Dose: 1 tab Documented by: [id number] Admin: 12/07/18 07:56 Dose: 1 tab Documented by: [id number] Admin: 12/06/18 08:47 Dose: 1 tab Documented by: [id number] Admin: 12/05/18 08:44 Dose: 1 tab Documented by: [id number] Admin: 12/04/18 08:06 Dose: 1 tab Documented by: [id number] Admin: 12/03/18 07:48 Dose: 1 tab Documented by: [id number] Admin: 12/02/18 07:33 Dose: Not Given Documented by: [id number] Admin: 12/01/18 09:03 Dose: Not Given Documented by: [id number] Admin: 11/30/18 08:17 Dose: 1 tab Documented by: [id number] Admin: 11/29/18 09:15 Dose: 1 tab Documented by: [id number] Admin: 11/28/18 08:45 Dose: 1 tab Documented by: [id number] Admin: 11/27/18 07:46 Dose: 1 tab Documented by: [id number] Admin: 11/26/18 07:40 Dose: 1 tab Documented by: [id number] Admin: 11/25/18 07:33 Dose: 1 tab Documented by: [id number] Admin: 11/24/18 20:45 Dose: 1 tab Documented by: [id number] Multivitamins/Minerals (Caltrate Plus) 1 tab PO DAILY NIC Stop: 12/21/18 11:14 Last Admin: 12/14/18 09:26 Dose: 1 tab Documented by: [id number] Admin: 12/13/18 08:07 Dose: 1 tab Documented by: [id number] Admin: 12/12/18 07:09 Dose: 1 tab Documented by: [id number] Admin: 12/11/18 07:24 Dose: 1 tab Documented by: [id number] Admin: 12/10/18 08:00 Dose: 1 tab Documented by: [id number] Admin: 12/09/18 08:13 Dose: 1 tab Documented by: [id number] Admin: 12/08/18 07:57 Dose: 1 tab Documented by: [id number] Admin: 12/07/18 07:56 Dose: 1 tab Documented by: [id number] Admin: 12/06/18 08:48 Dose: 1 tab Documented by: [id number] Admin: 12/05/18 08:43 Dose: 1 tab Documented by: [id number] Admin: 12/04/18 08:06 Dose: 1 tab Documented by: [id number] Admin: 12/03/18 07:48 Dose: 1 tab Documented by: [id number] Admin: 12/02/18 07:33 Dose: Not Given Documented by: [id number] Admin: 12/01/18 09:03 Dose: Not Given Documented by: [id number] Admin: 11/30/18 08:17 Dose: 1 tab Documented by: [id number] Admin: 11/29/18 09:14 Dose: 1 tab Documented by: [id number] Admin: 11/28/18 08:46 Dose: 1 tab Documented by: [id number] Admin: 11/27/18 07:46 Dose: 1 tab Documented by: [id number] Admin: 11/26/18 07:39 Dose: 1 tab Documented by: [id number] Admin: 11/25/18 07:33 Dose: 1 tab Documented by: [id number] Admin: 11/24/18 07:39 Dose: 1 tab Documented by: [id number] Admin: 11/23/18 07:44 Dose: 1 tab Documented by: [id number] Admin: 11/22/18 08:42 Dose: 1 tab Documented by: [id number] Admin: 11/21/18 11:34 Dose: Not Given Documented by: [id number] Ondansetron HCl (Zofran) 4 mg IV Q6H PRN PRN Reason: Nausea Stop: 12/20/18 15:54 Last Admin: 11/20/18 20:53 Dose: 4 mg Documented by: [id number] Ranitidine HCl (Zantac) 150 mg PO HS NIC Stop: 12/21/18 20:59 Last Admin: 12/14/18 21:39 Dose: 150 mg Documented by: [id number] Admin: 12/13/18 21:16 Dose: 150 mg Documented by: [id number] Admin: 12/12/18 20:51 Dose: 150 mg Documented by: [id number] Admin: 12/11/18 21:28 Dose: 150 mg Documented by: [id number] Admin: 12/10/18 20:30 Dose: 150 mg Documented by: [id number] Admin: 12/09/18 20:37 Dose: 150 mg Documented by: [id number] Admin: 12/08/18 20:05 Dose: 150 mg Documented by: [id number] Admin: 12/07/18 21:11 Dose: 150 mg Documented by: [id number] Admin: 12/06/18 20:46 Dose: 150 mg Documented by: [id number] Admin: 12/05/18 21:02 Dose: 150 mg Documented by: [id number] Admin: 12/04/18 20:36 Dose: 150 mg Documented by: [id number] Admin: 12/03/18 21:12 Dose: 150 mg Documented by: [id number] Admin: 12/02/18 21:36 Dose: 150 mg Documented by: [id number] Admin: 12/01/18 21:14 Dose: Not Given Documented by: [id number] Admin: 11/30/18 21:49 Dose: 150 mg Documented by: [id number] Admin: 11/29/18 21:03 Dose: 150 mg Documented by: [id number] Admin: 11/28/18 20:31 Dose: 150 mg Documented by: [id number] Admin: 11/27/18 20:38 Dose: 150 mg Documented by: [id number] Admin: 11/26/18 20:00 Dose: 150 mg Documented by: [id number] Admin: 11/25/18 20:43 Dose: 150 mg Documented by: [id number] Admin: 11/24/18 20:48 Dose: 150 mg Documented by: [id number] Admin: 11/23/18 20:53 Dose: 150 mg Documented by: [id number] Admin: 11/22/18 21:00 Dose: 150 mg Documented by: [id number] Admin: 11/21/18 21:16 Dose: 150 mg Documented by: [id number] Risperidone (Risperdal) 1 mg PO BID NIC Stop: 12/21/18 11:14 Last Admin: 12/14/18 21:38 Dose: 1 mg Documented by: [id number] Admin: 12/14/18 09:26 Dose: 1 mg Documented by: [id number] Admin: 12/13/18 21:16 Dose: 1 mg Documented by: [id number] Admin: 12/13/18 08:07 Dose: 1 mg Documented by: [id number] Admin: 12/12/18 20:51 Dose: 1 mg Documented by: [id number] Admin: 12/12/18 07:08 Dose: 1 mg Documented by: [id number] Admin: 12/11/18 21:27 Dose: 1 mg Documented by: [id number] Admin: 12/11/18 07:23 Dose: 1 mg Documented by: [id number] Admin: 12/10/18 20:29 Dose: 1 mg Documented by: [id number] Admin: 12/10/18 08:01 Dose: 1 mg Documented by: [id number] Admin: 12/09/18 20:37 Dose: 1 mg Documented by: [id number] Admin: 12/09/18 08:12 Dose: 1 mg Documented by: [id number] Admin: 12/08/18 20:06 Dose: 1 mg Documented by: [id number] Admin: 12/08/18 07:56 Dose: 1 mg Documented by: [id number] Admin: 12/07/18 21:09 Dose: 1 mg Documented by: [id number] Admin: 12/07/18 07:57 Dose: 1 mg Documented by: [id number] Admin: 12/06/18 20:45 Dose: 1 mg Documented by: [id number] Admin: 12/06/18 08:48 Dose: 1 mg Documented by: [id number] Admin: 12/05/18 21:03 Dose: 1 mg Documented by: [id number] Admin: 12/05/18 08:44 Dose: 1 mg Documented by: [id number] Admin: 12/04/18 20:35 Dose: 1 mg Documented by: [id number] Admin: 12/04/18 08:07 Dose: 1 mg Documented by: [id number] Admin: 12/03/18 21:12 Dose: 1 mg Documented by: [id number] Admin: 12/03/18 07:48 Dose: 1 mg Documented by: [id number] Admin: 12/02/18 21:37 Dose: 1 mg Documented by: [id number] Admin: 12/02/18 07:34 Dose: Not Given Documented by: [id number] Admin: 12/01/18 21:13 Dose: Not Given Documented by: [id number] Admin: 12/01/18 09:04 Dose: Not Given Documented by: [id number] Admin: 11/30/18 21:49 Dose: 1 mg Documented by: [id number] Admin: 11/30/18 08:17 Dose: 1 mg Documented by: [id number] Admin: 11/29/18 21:02 Dose: 1 mg Documented by: [id number] Admin: 11/29/18 09:15 Dose: 1 mg Documented by: [id number] Admin: 11/28/18 22:39 Dose: 1 mg Documented by: [id number] Admin: 11/28/18 22:26 Dose: Not Given Documented by: [id number] Admin: 11/28/18 08:46 Dose: 1 mg Documented by: [id number] Admin: 11/27/18 20:34 Dose: 1 mg Documented by: [id number] Admin: 11/27/18 07:47 Dose: 1 mg Documented by: [id number] Admin: 11/26/18 19:59 Dose: 1 mg Documented by: [id number] Admin: 11/26/18 07:40 Dose: 1 mg Documented by: [id number] Admin: 11/25/18 20:43 Dose: 1 mg Documented by: [id number] Admin: 11/25/18 07:33 Dose: 1 mg Documented by: [id number] Admin: 11/24/18 20:48 Dose: 1 mg Documented by: [id number] Admin: 11/24/18 07:39 Dose: 1 mg Documented by: [id number] Admin: 11/23/18 20:52 Dose: 1 mg Documented by: [id number] Admin: 11/23/18 07:45 Dose: 1 mg Documented by: [id number] Admin: 11/22/18 20:58 Dose: 1 mg Documented by: [id number] Admin: 11/22/18 08:42 Dose: 1 mg Documented by: [id number] Admin: 11/21/18 21:16 Dose: 1 mg Documented by: [id number] Admin: 11/21/18 11:34 Dose: Not Given Documented by: [id number] (1) Altered mental status Altered mental status type: unspecified Qualified Code(s): R41.82 - Altered mental status, unspecified (2) Acute pancreatitis Acute pancreatitis complication: unspecified Pancreatitis type: unspecified pancreatitis type Qualified Code(s): K85.90 - Acute pancreatitis without necrosis or infection, unspecified
[2018-12-15] MEDS: DIVALPROEX DELAY RELEASE 500 MG TAB PO SCH ×2 (08:16→21:27)
[2018-12-15] MEDS: risperiDONE 1 MG TABLET PO SCH ×2 (08:16→21:29)
[2018-12-15] MEDS: MULTIVITAMIN TAB PO SCH (08:16)
[2018-12-15] MEDS: CYANOCOBALAMIN 500 MCG TABLET (VITAMIN B-12) PO SCH (08:16)
[2018-12-15] MEDS: IMIPRAMINE HCL 25 MG TAB PO SCH ×3 (08:16→21:29)
[2018-12-15] MEDS: DULOXETINE HCL 60 MG CAP PO SCH (08:17)
[2018-12-15] MEDS: CALCIUM 600MG + VIT D 400 IU TAB PO SCH (08:17)
[2018-12-15] MEDS: MAGNESIUM OXIDE 400 MG TAB PO SCH ×2 (08:18→21:32)
[2018-12-15] MEDS: INSULIN ASPART 100 UNITS/ML 3 ML PEN SC SCH ×4 (08:27→17:16)
[2018-12-15] MEDS ORDERED: DAPTOmycin 500 MG in SYRINGE 0 ML IV STA (09:41)
--- NOTE | 2018-12-15 09:59 | Hospitalist Progress Note ---
Date of Service December 15, 2018 Assessment & Plan (1) Severe sepsis: Secondary to E. coli UTI, gram-negative bacilli bacteremia Associated with acute on chronic kidney failure, episode of hypotension hypotension, bradycardia resolved Urine culture: Positive for E. coli, ESBL Blood Cultures: E coli, gram positive cocci clusters Dapto added to Levaquin IV Continue IV fluids Continue stress dose hydrocortisone ID consulted, appreciate recommendations (2) UTI (urinary tract infection): Management as noted above (3) Acute renal failure superimposed on stage 3 chronic kidney disease: Creatinine increased to 2.4 Likely from hypotension, sepsis Improved Continue IV fluids (4) Acute metabolic encephalopathy: Resolved In the setting of pancreatitis, pneumonia, possible adrenal insufficiency Subclinical hypothyroidism contributing? TSH 10.4, free T4 1.39 Increased levothyroxine from 125 to 150 mcg daily repeat thyroid function tests in 4 to 6 weeks Most lethargic yesterday, improved with improvement of heart rate and blood pressure Low hemoglobin Multifactorial and most likely due to ongoing infection and poor nutrition No acute blood loss Given 2 units of packed RBCs HGlobin 9.2, stable so far for the past few days No signs of active bleeding (5) Small bowel obstruction: Resolve with conservative management Has had diarrhea C. difficile toxin has been negative but C. difficile gene has been positive Discussed with ID Not infectious and does not require any treatment Diarrhea resolved (6) Pancreatitis: Presented with abdominal pain and nausea CT scan did show:CT abdomen pelvis revealed acute pancreatitis, trace pleural effusion and trace abdominal pelvic ascites, gallbladder sludge, diverticulosis Patient bowel rest, IV fluids Lipase normalized Resolved Patient's CT abdomen showing gallbladder sludge GI consulted, recommend eventual cholecystectomy to prevent recurrence of pancreatitis Lipase 1400, no signs of abdominal pain Continue to monitor (7) Pneumonia: Chest x-ray concerning for left basilar opacity and pleural effusion possibly consistent with pneumonia Urinalysis does have positive leukoesterase and nitrites, but negative bacteria -Per patient's sister he has history of UTI which presents as confusion Patient does not meet Sepsis Criteria Continue IV antibiotics with Zosyn, obtain mRSA nasal swab if negative will not cover for MRSA given concern for SHIELA Abd U/S Limited to RUQ to r/o gall bladder pathology as etiology of pancreatitis - currently unknown no ETOH or NSAID obtain NH3, blood cultures: Negative Finished antibiotics Levaquin -Resolved (8) Hyperglycemia: New diagnosis, patient not on oral DM meds or insulin at home Blood glucose running in the 300s A1c 5.9 Possibly from pancreatitis? Glycemic control by pharmacist consulted Insulin Lantus and sliding scale aspart started Continue to monitor (9) Electrolyte abnormality: Has multiple electrolytes abnormalities Low potassium, magnesium and phosphate Replaced (10) Hypertension: Hold amlodipine and carvedilol in light of hypotension and bradycardia (11) Hypothyroidism: Continue levothyroxine (12) Bipolar disorder: Depakote reduced from 1000 twice daily to 500 mg twice daily per patient's sister's request Seems to be tolerating reduced dose so far Continue Risperidone (13) Thrombocytopenia: Platelet count stable 60k Chronically runs between 60 and 100 Had peripheral smear done in admission 04/2018 which was unrevealing no signs of bleeding hold Lovenox (14) Leg edema, right: Not on any coagulation for DVT prophylaxis secondary to thrombocytopenia, possible procedures No DVT by ultrasound (15) DVT prophylaxis: SCDS/TEDS HOLD Lovenox for low plt Disposition Evaluation management of sepsis and UTI progress Subjective ff up for sepsis, bacteremia, UTI seen resting in bed, comfortable, alert, in good spirits states he feels improved compared to yesterday denies dyspnea, chest pain, palpitations, dizziness no abdominal pain, no nausea/vomiting no other symptoms Review of Systems Review of Systems: All systems reviewed & are unremarkable except as noted in HPI & below Physical Exam Physical Exam: General- oriented x 2, not in distress, speaks in sentences with no effort or accessory muscle use Eyes- anicteric Neck- no JVD Lungs- clear BS BL no rales/wheezes Heart- normal rate, regular rhythm; no murmurs Abdomen- normal bowel sounds, nondistended, soft, nontender Extremities- no pretibial edema, no calf tenderness Neuro- alert, oriented x 2; no gross focal neurologic deficits Skin- warm & dry Results & Data Vital Signs (Past 12 Hours) Vital Signs Temp Pulse Resp BP Pulse Ox 12/15/18 04:15 36.3 C L 55 L 12 99 12/15/18 04:00 56 L 12 144/80 H 99 12/15/18 03:45 56 L 13 99 12/15/18 03:30 59 L 20 100 12/15/18 03:15 62 13 100 12/15/18 03:01 61 17 167/85 H 100 12/15/18 03:00 59 L 19 100 12/15/18 02:51 61 12 177/83 H 96 12/15/18 02:45 68 12/15/18 02:15 66 20 100 12/15/18 02:00 78 17 149/105 H 73 L 12/15/18 01:45 65 18 98 12/15/18 01:30 60 14 99 12/15/18 01:15 69 19 100 12/15/18 01:00 70 19 155/98 H 98 12/15/18 00:45 66 13 99 12/15/18 00:30 81 18 100 12/15/18 00:15 57 L 12 99 12/15/18 00:01 69 18 134/92 99 12/15/18 00:00 68 21 99 12/14/18 23:45 62 16 100 12/14/18 23:30 65 14 100 12/14/18 23:15 36.4 C L 65 16 12/14/18 23:01 65 20 161/93 H 100 12/14/18 23:00 63 17 100 12/14/18 22:45 70 16 100 12/14/18 22:30 68 16 99 12/14/18 22:15 66 17 100 12/14/18 22:01 74 17 174/98 H 100 12/14/18 22:00 66 14 99
[2018-12-15] MEDS ORDERED: INSULIN GLARGINE SOLOSTAR 100 UNITS/ML 3 ML PEN SC SCH (11:45)
--- NOTE | 2018-12-15 11:56 | Pharmacy Report ---
Pharmacy Glycemic Short Note 2 - Date of Service December 15, 2018 - Glycemic Short BSG Results (Last 24 hours): 12/14/18 12/14/18 12/15/18 16:33 21:44 01:47 Glucose POC Glucose 167 H 210 H 223 H 12/15/18 12/15/18 12/15/18 04:21 07:35 11:15 Glucose 129 H POC Glucose 138 H 246 H 12/15/18 11:16 Glucose POC Glucose 233 H OUTPATIENT ANTIDIABETIC REGIMEN: None A1c 5.9% on 11/28/18 ASSESSMENT: * Hydrocortisone IV q8H restarted on 12/13 - pt required 15 units of Lantus yesterday (77 total units of insulin) with better glycemic control. Will continue with daily dose of Lantus, and discontinue when Hydrocortisone is discontinued. * Continue tighten CF and CR at this time while on IV steroids. PLAN FOR INPATIENT GLYCEMIC CONTROL: * Basal insulin - Lantus 10 units daily * Bolus insulin * NovoLog per scale ACHS or Q6hrs while NPO * Goal Range: Low 110 mg/dL - High 140 mg/dL * Correction Factor: 15 mg/dL/unit * Nutritional / Prandial insulin per carb ratio of 1 unit per 4 grams CHO consumed PLAN FOR DISCHARGE: * A1c = 5.9%; this is in the pre-diabetic range * Consider lifestyle modifications and/or addition of metformin to slow progression to diabetes
[2018-12-15] MEDS: LEVOFLOXACIN/D5W 750 MG/150 ML BAG IV SCH (14:53)
[2018-12-15] MEDS ORDERED: INSULIN REGULAR 250 UNITS in SODIUM CHLORIDE 0.9% 247.5 ML IV SCH (19:00)
[2018-12-16] MEDS: HYDROCORTISONE SOD 50 MG in SYRINGE 0 ML IV SCH ×2 (02:08→10:18)
[2018-12-16] MEDS: DAPTOmycin 500 MG in SYRINGE 0 ML IV SCH (04:03)
[2018-12-16 04:11] LABS: Hematocrit (blood only) 27.3 % (42-52); Hemoglobin 8.8 g/dL (14.0-18.0); Mean Corpuscular Hgb Conc 32.2 g/dL (32-36); Mean Corpuscular Volume 93.8 fL (80-100); Nucleated RBC # (auto) 0.02 K/uL (0-0); Nucleated RBC % (auto) 0.3 %; RDW Coefficient of Variation 16.7 % (11.5-14.5); RDW Standard Deviation 57.6 fL (36.4-46.3); Red Blood Count 2.91 M/uL (4.7-6.1)
[2018-12-16] MEDS: NORMOSOL-R 1,000 ML IV SCH ×2 (04:28→18:25)
[2018-12-16 04:39] LABS: BUN Creatinine Ratio 25.6 (10-20); Creatinine Clr Calc Pharmacy 84.2 ml/min; Est GFR (African American) 83.4; Magnesium 2.2 mg/dl (1.8-2.4); Potassium 4.1 mmol/L (3.5-5.1)
[2018-12-16 04:40] LABS: Mean Platelet Volume 8.8 fL (7.4-10.4); Phosphorus 1.7 mg/dl (2.5-4.9); Platelet Count 61 K/uL (130-400)
[2018-12-16 04:53] LABS: Basophils # (auto) 0.01 K/uL (0-0.2); Basophils % (auto) 0.2 %; Immature Granulocytes # (auto) 0.04 K/uL (0.00-0.02); Immature Granulocytes % (auto) 0.8 %; Lymphocytes # (auto) 0.69 K/uL (1.2-3.4); Lymphocytes % (auto) 13.5 %; Monocytes # (auto) 0.21 K/uL (0.11-0.59); Monocytes % (auto) 4.1 %; Neutrophils # (auto) 4.15 K/uL (1.4-6.5); Neutrophils % (auto) 81.4 %; RBC Morphology Unremarkable
[2018-12-16] MEDS ORDERED: POTASSIUM PHOS 3 MMOL/1 ML INFUSION IV STA (05:38)
[2018-12-16] MEDS ORDERED: SODIUM CHLORIDE 0.9% IV ONE (06:00)
[2018-12-16] MEDS ORDERED: POTASSIUM PHOSPHATE IV ONE (06:00)
[2018-12-16] MEDS: LEVOTHYROXINE SODIUM 150 MCG TABLET PO SCH (06:07)
--- NOTE | 2018-12-16 07:15 | Critical Care Progress Note ---
Date of Service December 16, 2018 Assessment & Plan (1) Admitted to intensive care unit: Reason critically ill: Mr. Tigre Becerril is a 53 y/o male who presents to ICU as transfer from [facility] for hypotension. He has been hospitalized since 11/20 after presenting with pancreatitis and altered mental status. Okay for transfer out of ICU today. Neuro: Had reduced consciousness from hypotension requiring transfer, but no hypotension after transfer. Hx Bipolar disorder treated with Depakote 500mg BID and Risperidone. Still confused, follows commands, but not oriented to time or place. Unsure of neuro baseline. Ammonia level for encephalopathy was negative Cardiac/Vascular Hx of HTN and RBBB, hyperlipidemia after mother passing away in hospital, history concerning for takotsubo cardiomyopathy but Trop negative Hemodynamics improved after transfer to ICU HTN continue with Amlodipine 10mg. On Coreg as well, okay to continue History of vasculitis on chronic prednisone lactate negative after transfer, ordered for possible poor end organ perfusion from hypotensive event; also current bacteremia Pharmacy would like to be contacted regarding any changes to hydrocortisone as patient has fragile hemodynamic response to changes in this medication; they are actively consulted. Pulm: Was treated for pneumonia over hospital course with levaquin. Currently requiring supplemental O2 NC GI: treated for pancreatitis during hospital course with conservative management * repeat Lipase ordered on transfer resulted with value 1457, which is 3x upper limit of normal concerning for pancreatitis * repeat lipase was 306 and normal; he tolerated his breakfast without any complaints of abdominal pain; unsure of etiology treated for SBO during hospital course with conservative management Had diarrhea that resolved during stay with c-diff + gene but negative toxin. ID was consulted and did not recommend treatment as not active infection. Ammonia level for encephalopathy - low <10 Renal/Lytes Hx CKD stage 3 with SHIELA on CKD during stay * creatinine improved today to 1.14; SHIELA resolving Has required multiple replacements over stay for Low potassium, magnesium and phosphate will trend monitor I&O No rubin as UTI of E. coli and bacteremia with gram negative bacilli concerning for UTI bacteremia. E. coli sensitivities with resistance to Zosyn, Amp, unasyn, 1st gen cephalosporin and concerns for EBL producing organism; on Levaquin 750mg q48 (renal dosing) Endo No history of DM but elevated sugars here, A1C 5.9; pharmacy consulted for glycemic management as fragile fluctuations in bG Hx Hypothyorid, recent had synthroid increase to 150mcg from 125mcg concern for adrenal insufficiency from chronic prednisone * random cortisol level was 125.14 , which was ordered after transfer Heme Hx of chronic anemia thought from poor nutrition Hx of chronic thrombocytopenia Did receive 2 units pRBCs on 12/11 Will order PT, PTT, INR, Fibrinogen to ensure no current DIC which ruled out DIC after transfer trend CBC ID Currently with E. coli UTI and also gram negative bacilli. Treated with Zosyn prior but resistant on susceptibilities today * Bacteremia positive for E. coli sensitivities with resistance to Zosyn, Amp, unasyn, 1st gen cephalosporin and concerns for EBL producing organism; will put on Levaquin 750mg q48 (renal dosing). Pharmacy consult placed for dosing recs. Repeat blood cultures including fungal smear pending - fungal source needed as chronic prednisone therapy causing concern for immunosuppression discontinue caryn Was treated for pneumonia here with a course of Levaquin. He did have Levaquin listed on allergy list as causing rash, but since tolerated course of Levaquin during current visit, okay to proceed. He had one of his two blood cultures from yesterday positive for gram positive cocci in clusters consistent with coag negative staph and not MSSA or MRSA; he was started on Daptomycin by overnight of 12/14- by Lisa attending, but discontinued since most likely contaminant. This is most likely a contaminant since only 1 of 2 grew positive and his previous bacteremia have been E. coli from UTI source. Daptomycin was active order on chart review this morning, but was discontinued. Repeat blood cultures pending Lines: PIV 22G right shoulder; 20G left AC; PICC line right upper extremity DVT: No chemical in setting of thrombocytopenia. SCDs ordered Resuscitation status: DNR/DNI. (2) Gram negative septicemia: (3) UTI (urinary tract infection): (4) Leg edema, right: (5) Small bowel obstruction: (6) Hyperglycemia: (7) Electrolyte abnormality: (8) Acute renal failure superimposed on stage 3 chronic kidney disease: (9) Pancreatitis: (10) Acute metabolic encephalopathy: (11) History of fasciotomy: (12) History of tracheostomy: (13) Hypothyroidism: (14) Hyperprolactinemia: (15) Vasculitis: (16) Acute pancreatitis: (17) SHIELA (acute kidney injury): (18) Hyperkalemia: (19) Hip pain, right: (20) Ambulatory dysfunction: (21) Thrombocytopenia: (22) Osteoarthritis: (23) Drug overdose: (24) Schizoaffective disorder, bipolar type: (25) DVT prophylaxis: (26) Altered mental status: (27) Post-traumatic seizures: (28) Hypertension: (29) Chronic pain: (30) History of total right hip arthroplasty: (31) CKD (chronic kidney disease), stage III: (32) ALKA (iron deficiency anemia): (33) Bipolar disorder: (34) RBBB: (35) Hyperlipidemia: (36) JHOANA (obstructive sleep apnea): (37) Reflux esophagitis: (38) Goiter: Supervising Physician Co-Signing Physician Notes Dr. Melgar was resident physician during care of patient. I separately evaluated patient for jackson portions of the history and the exam. I was present during the critical portion of medical decision making, and I discussed the case with the resident. I generally agree with the findings and plan. Stable for downgrade out of ICU Subjective Caveat - History limited by: Altered Mental Status No acute events overnight. Tolerating food without difficulties. He does not complain of fever, chills, abdominal pain, chest pain, shortness of breath, nausea. He is stable for downgrade out of ICU today. Review of Systems Review of Systems: All systems reviewed & are unremarkable except as noted in HPI & below Physical Exam Constitutional: + morbidly obese, + altered mental status, cooperative and comfortable Eyes: + eyelid abnormality Neck: trachea midline Respiratory: normal respiratory effort; no respiratory distress and does not use accessory muscles Auscultation: + diminished lung sounds Cardiovascular: Rate/Rhythm: regular rate and regular rhythm Gastrointestinal (Abdomen): Percussion/Palpation: abdomen soft; abdomen nontender and no guarding Musculoskeletal: Head/Neck/Chest: normocephalic and head atraumatic Skin: + dry skin Neurologic: moves all extremities, awake and + confused; no focal motor defic its Psychiatric: Orientation: alert and oriented to person; + not oriented to place and + not oriented to time Results & Data Vital Signs (Past 12 Hours) Vital Signs Temp Pulse Resp BP Pulse Ox 12/16/18 06:30 65 14 100 12/16/18 06:15 64 14 100 12/16/18 06:08 74 17 155/71 H 94 12/16/18 06:00 65 21 12/16/18 05:45 94 12/16/18 05:30 61 100 12/16/18 05:15 62 18 99 12/16/18 05:00 66 14 145/77 H 100 12/16/18 04:45 71 7 L 100 12/16/18 04:30 56 L 10 L 100 12/16/18 04:15 58 L 10 L 100 12/16/18 04:00 55 L 9 L 157/86 H 100 12/16/18 03:45 60 10 L 100 12/16/18 03:30 55 L 8 L 100 12/16/18 03:15 58 L 12 100 12/16/18 03:00 57 L 6 L 166/85 H 100 12/16/18 02:45 78 16 99 12/16/18 02:30 81 10 L 100 12/16/18 02:15 55 L 9 L 100 12/16/18 02:00 56 L 7 L 155/89 H 100 12/16/18 01:45 57 L 8 L 100 12/16/18 01:30 55 L 9 L 100 12/16/18 01:15 56 L 10 L 100 12/16/18 01:00 56 L 7 L 155/85 H 99 12/16/18 00:45 55 L 8 L 100 12/16/18 00:30 36.5 C 53 L 12 100 12/16/18 00:15 54 L 12 94 12/16/18 00:00 54 L 12 138/76 93 12/15/18 23:45 56 L 12 96 12/15/18 23:30 55 L 11 L 95 12/15/18 23:15 60 18 95 12/15/18 23:00 72 17 155/87 H 94 12/15/18 22:45 66 18 97 12/15/18 22:30 79 16 95 12/15/18 22:15 78 20 98 12/15/18 22:00 78 14 126/87 95 12/15/18 21:45 73 20 97 12/15/18 21:30 65 13 96 12/15/18 21:15 72 14 95 12/15/18 21:00 75 17 137/77 97 12/15/18 20:45 73 12 92 12/15/18 20:30 72 17 86 L 12/15/18 20:15 78 22 96 12/15/18 20:00 77 12 143/86 H 98 12/15/18 19:45 71 14 100 12/15/18 19:30 78 20 99 12/15/18 19:15 64 11 L 100 Laboratory Results Laboratory Results - last 24 hr 12/15/18 12/15/18 12/15/18 11:15 11:16 16:22 WBC RBC Hgb Hct MCV MCH MCHC RDW Std Deviation RDW Coeff of Debra Plt Count MPV Immature Gran % (Auto) Neut % (Auto) Lymph % (Auto) [place] % (Auto) Eos % (Auto) Baso % (Auto) Immature Gran # (Auto) Neut # (Auto) Lymph # (Auto) [place] # (Auto) Eos # (Auto) Baso # (Auto) Absolute Nucleated RBC Nucleated RBC % (auto) RBC Morphology Sodium Potassium Chloride Carbon Dioxide Anion Gap BUN Creatinine Est Cr Clr Drug Dosing Est GFR ( Amer) Est GFR (Non-Af Amer) BUN/Creatinine Ratio Glucose POC Glucose 246 H 233 H 291 H Calcium Phosphorus Magnesium 12/15/18 12/15/18 12/15/18 20:12 21:21 22:15 WBC RBC Hgb Hct MCV MCH MCHC RDW Std Deviation RDW Coeff of Debra Plt Count MPV Immature Gran % (Auto) Neut % (Auto) Lymph % (Auto) [place] % (Auto) Eos % (Auto) Baso % (Auto) Immature Gran # (Auto) Neut # (Auto) Lymph # (Auto) [place] # (Auto) Eos # (Auto) Baso # (Auto) Absolute Nucleated RBC Nucleated RBC % (auto) RBC Morphology Sodium Potassium Chloride Carbon Dioxide Anion Gap BUN Creatinine Est Cr Clr Drug Dosing Est GFR ( Amer) Est GFR (Non-Af Amer) BUN/Creatinine Ratio Glucose POC Glucose 260 H 226 H 164 H Calcium Phosphorus Magnesium 12/15/18 12/16/18 12/16/18 23:17 00:24 02:03 WBC RBC Hgb Hct MCV MCH MCHC RDW Std Deviation RDW Coeff of Debra Plt Count MPV Immature Gran % (Auto) Neut % (Auto) Lymph % (Auto) [place] % (Auto) Eos % (Auto) Baso % (Auto) Immature Gran # (Auto) Neut # (Auto) Lymph # (Auto) [place] # (Auto) Eos # (Auto) Baso # (Auto) Absolute Nucleated RBC Nucleated RBC % (auto) RBC Morphology Sodium Potassium Chloride Carbon Dioxide Anion Gap BUN Creatinine Est Cr Clr Drug Dosing Est GFR ( Amer) Est GFR (Non-Af Amer) BUN/Creatinine Ratio Glucose POC Glucose 151 H 128 H 102 H Calcium Phosphorus Magnesium 12/16/18 12/16/18 12/16/18 03:10 03:46 03:46 WBC 5.10 RBC 2.91 L Hgb 8.8 L Hct 27.3 L MCV 93.8 MCH 30.2 MCHC 32.2 RDW Std Deviation 57.6 H RDW Coeff of Debra 16.7 H Plt Count 61 L MPV 8.8 Immature Gran % (Auto) 0.8 Neut % (Auto) 81.4 Lymph % (Auto) 13.5 [place] % (Auto) 4.1 Eos % (Auto) 0.0 Baso % (Auto) 0.2 Immature Gran # (Auto) 0.04 H Neut # (Auto) 4.15 Lymph # (Auto) 0.69 L [place] # (Auto) 0.21 Eos # (Auto) 0.00 Baso # (Auto) 0.01 Absolute Nucleated RBC 0.02 H Nucleated RBC % (auto) 0.3 RBC Morphology Unremarkable Sodium 138 Potassium 4.1 Chloride 102 Carbon Dioxide 30 Anion Gap 6.0 BUN 29 H Creatinine 1.14 D Est Cr Clr Drug Dosing 84.2 Est GFR ( Amer) 83.4 Est GFR (Non-Af Amer) 72.0 BUN/Creatinine Ratio 25.6 H Glucose 97 POC Glucose 113 H Calcium 9.0 Phosphorus 1.7 L Magnesium 2.2 12/16/18 12/16/18 12/16/18 03:50 04:58 07:58 WBC RBC Hgb Hct MCV MCH MCHC RDW Std Deviation RDW Coeff of Debra Plt Count MPV Immature Gran % (Auto) Neut % (Auto) Lymph % (Auto) [place] % (Auto) Eos % (Auto) Baso % (Auto) Immature Gran # (Auto) Neut # (Auto) Lymph # (Auto) [place] # (Auto) Eos # (Auto) Baso # (Auto) Absolute Nucleated RBC Nucleated RBC % (auto) RBC Morphology Sodium Potassium Chloride Carbon Dioxide Anion Gap BUN Creatinine Est Cr Clr Drug Dosing Est GFR ( Amer) Est GFR (Non-Af Amer) BUN/Creatinine Ratio Glucose POC Glucose 101 H 111 H 136 H Calcium Phosphorus Magnesium Medications Administered Acetaminophen (Tylenol) 650 mg PO Q4H PRN PRN Reason: Pain or Fever Stop: 12/20/18 15:54 Last Admin: 12/11/18 18:41 Dose: 650 mg Documented by: [id number] Admin: 11/21/18 16:46 Dose: 650 mg Documented by: [id number] Cyanocobalamin (Vitamin B-12) 1,000 mcg PO DAILY NIC Stop: 12/21/18 11:14 Last Admin: 12/16/18 08:11 Dose: 1,000 mcg Documented by: [id number] Admin: 12/15/18 08:16 Dose: 1,000 mcg Documented by: [id number] Admin: 12/14/18 09:25 Dose: 1,000 mcg Documented by: [id number] Admin: 12/13/18 08:07 Dose: 1,000 mcg Documented by: [id number] Admin: 12/12/18 07:08 Dose: 1,000 mcg Documented by: [id number] Admin: 12/11/18 07:23 Dose: 1,000 mcg Documented by: [id number] Admin: 12/10/18 08:01 Dose: 1,000 mcg Documented by: [id number] Admin: 12/09/18 08:13 Dose: 1,000 mcg Documented by: [id number] Admin: 12/08/18 07:58 Dose: 1,000 mcg Documented by: [id number] Admin: 12/07/18 07:56 Dose: 1,000 mcg Documented by: [id number] Admin: 12/06/18 08:48 Dose: 1,000 mcg Documented by: [id number] Admin: 12/05/18 08:43 Dose: 1,000 mcg Documented by: [id number] Admin: 12/04/18 08:05 Dose: 1,000 mcg Documented by: [id number] Admin: 12/03/18 07:49 Dose: 1,000 mcg Documented by: [id number] Admin: 12/02/18 07:34 Dose: Not Given Documented by: [id number] Admin: 12/01/18 09:04 Dose: Not Given Documented by: [id number] Admin: 11/30/18 08:17 Dose: 1,000 mcg Documented by: [id number] Admin: 11/29/18 09:15 Dose: 1,000 mcg Documented by: [id number] Admin: 11/28/18 08:48 Dose: 1,000 mcg Documented by: [id number] Admin: 11/27/18 07:46 Dose: 1,000 mcg Documented by: [id number] Admin: 11/26/18 07:38 Dose: 1,000 mcg Documented by: [id number] Admin: 11/25/18 07:33 Dose: 1,000 mcg Documented by: [id number] Admin: 11/24/18 07:39 Dose: 1,000 mcg Documented by: [id number] Admin: 11/23/18 07:44 Dose: 1,000 mcg Documented by: [id number] Admin: 11/22/18 08:41 Dose: 1,000 mcg Documented by: [id number] Admin: 11/21/18 11:34 Dose: Not Given Documented by: [id number] Dextrose (Dextrose 50%) 25 - 50 ml IV UD PRN; Protocol PRN Reason: Hypoglycemia Protocol Stop: 12/30/18 16:59 Last Admin: 11/30/18 22:30 Dose: 25 ml Documented by: [id number] Admin: 11/30/18 17:41 Dose: 25 ml Documented by: [id number] Divalproex Sodium (Depakote Delay Release) 500 mg PO BID NIC Stop: 12/27/18 08:59 Last Admin: 12/16/18 08:10 Dose: 500 mg Documented by: [id number] Admin: 12/15/18 21:27 Dose: 500 mg Documented by: [id number] Admin: 12/15/18 08:16 Dose: 500 mg Documented by: [id number] Admin: 12/14/18 21:37 Dose: 500 mg Documented by: [id number] Admin: 12/14/18 09:26 Dose: 500 mg Documented by: [id number] Admin: 12/13/18 21:16 Dose: 500 mg Documented by: [id number] Admin: 12/13/18 08:07 Dose: 500 mg Documented by: [id number] Admin: 12/12/18 20:50 Dose: 500 mg Documented by: [id number] Admin: 12/12/18 07:08 Dose: 500 mg Documented by: [id number] Admin: 12/11/18 21:28 Dose: 500 mg Documented by: [id number] Admin: 12/11/18 07:23 Dose: 500 mg Documented by: [id number] Admin: 12/10/18 20:27 Dose: 500 mg Documented by: [id number] Admin: 12/10/18 08:00 Dose: 500 mg Documented by: [id number] Admin: 12/09/18 20:37 Dose: 500 mg Documented by: [id number] Admin: 12/09/18 08:13 Dose: 500 mg Documented by: [id number] Admin: 12/08/18 20:06 Dose: 500 mg Documented by: [id number] Admin: 12/08/18 07:57 Dose: 500 mg Documented by: [id number] Admin: 12/07/18 21:12 Dose: 500 mg Documented by: [id number] Admin: 12/07/18 08:41 Dose: 500 mg Documented by: [id number] Admin: 12/06/18 20:45 Dose: 500 mg Documented by: [id number] Admin: 12/06/18 08:48 Dose: 500 mg Documented by: [id number] Admin: 12/05/18 21:00 Dose: 500 mg Documented by: [id number] Admin: 12/05/18 08:43 Dose: 500 mg Documented by: [id number] Admin: 12/04/18 20:35 Dose: 500 mg Documented by: [id number] Admin: 12/04/18 08:07 Dose: 500 mg Documented by: [id number] Admin: 12/03/18 21:12 Dose: 500 mg Documented by: [id number] Admin: 12/03/18 07:49 Dose: 500 mg Documented by: [id number] Admin: 12/02/18 21:36 Dose: 500 mg Documented by: [id number] Admin: 12/02/18 07:33 Dose: Not Given Documented by: [id number] Admin: 12/01/18 21:13 Dose: Not Given Documented by: [id number] Admin: 12/01/18 09:03 Dose: Not Given Documented by: [id number] Admin: 11/30/18 21:50 Dose: 500 mg Documented by: [id number] Admin: 11/30/18 08:17 Dose: 500 mg Documented by: [id number] Admin: 11/29/18 21:01 Dose: 500 mg Documented by: [id number] Admin: 11/29/18 09:16 Dose: 500 mg Documented by: [id number] Admin: 11/28/18 22:38 Dose: 500 mg Documented by: [id number] Admin: 11/28/18 22:26 Dose: Not Given Documented by: [id number] Admin: 11/28/18 08:46 Dose: 500 mg Documented by: [id number] Admin: 11/27/18 20:33 Dose: 500 mg Documented by: [id number] Admin: 11/27/18 07:47 Dose: 500 mg Documented by: [id number] Duloxetine HCl (Cymbalta) 60 mg PO DAILY NIC Stop: 12/21/18 11:14 Last Admin: 12/16/18 08:10 Dose: 60 mg Documented by: [id number] Admin: 12/15/18 08:17 Dose: 60 mg Documented by: [id number] Admin: 12/14/18 09:26 Dose: 60 mg Documented by: [id number] Admin: 12/13/18 08:07 Dose: 60 mg Documented by: [id number] Admin: 12/12/18 07:09 Dose: 60 mg Documented by: [id number] Admin: 12/11/18 07:24 Dose: 60 mg Documented by: [id number] Admin: 12/10/18 08:00 Dose: 60 mg Documented by: [id number] Admin: 12/09/18 08:13 Dose: 60 mg Documented by: [id number] Admin: 12/08/18 07:58 Dose: 60 mg Documented by: [id number] Admin: 12/07/18 07:56 Dose: 60 mg Documented by: [id number] Admin: 12/06/18 08:47 Dose: 60 mg Documented by: [id number] Admin: 12/05/18 08:43 Dose: 60 mg Documented by: [id number] Admin: 12/04/18 08:07 Dose: 60 mg Documented by: [id number] Admin: 12/03/18 07:48 Dose: 60 mg Documented by: [id number] Admin: 12/02/18 07:33 Dose: Not Given Documented by: [id number] Admin: 12/01/18 09:03 Dose: Not Given Documented by: [id number] Admin: 11/30/18 08:17 Dose: 60 mg Documented by: [id number] Admin: 11/29/18 09:15 Dose: 60 mg Documented by: [id number] Admin: 11/28/18 08:45 Dose: 60 mg Documented by: [id number] Admin: 11/27/18 07:46 Dose: 60 mg Documented by: [id number] Admin: 11/26/18 07:39 Dose: 60 mg Documented by: [id number] Admin: 11/25/18 07:32 Dose: 60 mg Documented by: [id number] Admin: 11/24/18 07:38 Dose: 60 mg Documented by: [id number] Admin: 11/23/18 07:45 Dose: 60 mg Documented by: [id number] Admin: 11/22/18 08:41 Dose: 60 mg Documented by: [id number] Admin: 11/21/18 11:34 Dose: Not Given Documented by: [id number] Glucose (Dex4 Glucose) 4 - 8 tabs PO UD PRN; Protocol PRN Reason: Hypoglycemia Protocol Stop: 12/30/18 16:59 Last Admin: 11/30/18 17:27 Dose: 4 tabs Documented by: [id number] Admin: 11/30/18 17:10 Dose: 8 tabs Documented by: [id number] Hydrocortisone Sodium (Succinate 50 mg/ Syringe) 1 mls @ 4 mls/min IV Q8H [facility] Stop: 01/13/19 01:59 Last Admin: 12/16/18 02:08 Dose: 4 mls/min Documented by: [id number] Admin: 12/15/18 17:13 Dose: 4 mls/min Documented by: [id number] Admin: 12/15/18 11:12 Dose: 4 mls/min Documented by: [id number] Admin: 12/15/18 01:55 Dose: 4 mls/min Documented by: [id number] Admin: 12/14/18 17:20 Dose: 4 mls/min Documented by: [id number] Admin: 12/14/18 09:26 Dose: 4 mls/min Documented by: [id number] Admin: 12/14/18 02:53 Dose: 4 mls/min Documented by: [id number] Parenteral Electrolytes (Normosol-R) 1,000 mls @ 125 mls/hr IV .Q8H NIC Stop: 01/12/19 21:14 Last Infusion: 12/16/18 06:15 Dose: 0 mls/hr Documented by: [id number] Admin: 12/16/18 04:28 Dose: 125 mls/hr Documented by: [id number] Infusion: 12/16/18 04:28 Dose: 125 mls/hr Documented by: [id number] Admin: 12/15/18 21:30 Dose: 125 mls/hr Documented by: [id number] Infusion: 12/15/18 20:19 Dose: 125 mls/hr Documented by: [id number] Admin: 12/15/18 12:19 Dose: 125 mls/hr Documented by: [id number] Infusion: 12/15/18 12:04 Dose: 125 mls/hr Documented by: [id number] Admin: 12/15/18 04:04 Dose: 125 mls/hr Documented by: [id number] Infusion: 12/15/18 04:04 Dose: 125 mls/hr Documented by: [id number] Admin: 12/14/18 21:35 Dose: 125 mls/hr Documented by: [id number] Infusion: 12/14/18 21:18 Dose: 125 mls/hr Documented by: [id number] Admin: 12/14/18 13:18 Dose: 125 mls/hr Documented by: [id number] Infusion: 12/14/18 13:18 Dose: 125 mls/hr Documented by: [id number] Admin: 12/14/18 05:20 Dose: 125 mls/hr Documented by: [id number] Infusion: 12/14/18 05:20 Dose: 125 mls/hr Documented by: [id number] Admin: 12/13/18 21:26 Dose: 125 mls/hr Documented by: [id number] Levofloxacin/Dextrose (Levaquin/D5w) 750 mg in 150 mls @ 100 mls/hr IV DAILY NIC Stop: 12/28/18 13:14 Last Admin: 12/16/18 08:16 Dose: 100 mls/hr Documented by: [id number] Infusion: 12/15/18 16:30 Dose: 0 mls/hr Documented by: [id number] Admin: 12/15/18 14:53 Dose: 100 mls/hr Documented by: [id number] Potassium Phosphate 39 mmol/ (Sodium Chloride) 1,013 mls @ 100 mls/hr IV ONE ONE Stop: 12/16/18 16:07 Last Admin: 12/16/18 06:07 Dose: 100 mls/hr Documented by: [id number] Imipramine HCl (Tofranil) 25 mg PO TID NIC Stop: 12/21/18 13:59 Last Admin: 12/16/18 08:11 Dose: 25 mg Documented by: [id number] Admin: 12/15/18 21:29 Dose: 25 mg Documented by: [id number] Admin: 12/15/18 14:53 Dose: 25 mg Documented by: [id number] Admin: 12/15/18 08:16 Dose: 25 mg Documented by: [id number] Admin: 12/14/18 21:38 Dose: 25 mg Documented by: [id number] Admin: 12/14/18 13:30 Dose: 25 mg Documented by: [id number] Admin: 12/14/18 09:26 Dose: 25 mg Documented by: [id number] Admin: 12/13/18 21:17 Dose: 25 mg Documented by: [id number] Admin: 12/13/18 13:28 Dose: 25 mg Documented by: [id number] Admin: 12/13/18 08:07 Dose: 25 mg Documented by: [id number] Admin: 12/12/18 20:51 Dose: 25 mg Documented by: [id number] Admin: 12/12/18 13:30 Dose: 25 mg Documented by: [id number] Admin: 12/12/18 07:08 Dose: 25 mg Documented by: [id number] Admin: 12/11/18 21:27 Dose: 25 mg Documented by: [id number] Admin: 12/11/18 13:54 Dose: 25 mg Documented by: [id number] Admin: 12/11/18 07:23 Dose: 25 mg Documented by: [id number] Admin: 12/10/18 20:29 Dose: 25 mg Documented by: [id number] Admin: 12/10/18 13:01 Dose: 25 mg Documented by: [id number] Admin: 12/10/18 08:01 Dose: 25 mg Documented by: [id number] Admin: 12/09/18 20:37 Dose: 25 mg Documented by: [id number] Admin: 12/09/18 13:50 Dose: 25 mg Documented by: [id number] Admin: 12/09/18 08:13 Dose: 25 mg Documented by: [id number] Admin: 12/08/18 20:06 Dose: 25 mg Documented by: [id number] Admin: 12/08/18 14:17 Dose: 25 mg Documented by: [id number] Admin: 12/08/18 07:56 Dose: 25 mg Documented by: [id number] Admin: 12/07/18 21:09 Dose: 25 mg Documented by: [id number] Admin: 12/07/18 14:19 Dose: 25 mg Documented by: [id number] Admin: 12/07/18 07:57 Dose: 25 mg Documented by: [id number] Admin: 12/06/18 20:45 Dose: 25 mg Documented by: [id number] Admin: 12/06/18 13:25 Dose: 25 mg Documented by: [id number] Admin: 12/06/18 08:47 Dose: 25 mg Documented by: [id number] Admin: 12/05/18 21:01 Dose: 25 mg Documented by: [id number] Admin: 12/05/18 15:06 Dose: 25 mg Documented by: [id number] Admin: 12/05/18 08:43 Dose: 25 mg Documented by: [id number] Admin: 12/04/18 20:36 Dose: 25 mg Documented by: [id number] Admin: 12/04/18 14:14 Dose: 25 mg Documented by: [id number] Admin: 12/04/18 08:06 Dose: 25 mg Documented by: [id number] Admin: 12/03/18 21:14 Dose: 25 mg Documented by: [id number] Admin: 12/03/18 13:01 Dose: 25 mg Documented by: [id number] Admin: 12/03/18 07:49 Dose: 25 mg Documented by: [id number] Admin: 12/02/18 21:37 Dose: 25 mg Documented by: [id number] Admin: 12/02/18 13:53 Dose: 25 mg Documented by: [id number] Admin: 12/02/18 07:34 Dose: Not Given Documented by: [id number] Admin: 12/01/18 21:13 Dose: Not Given Documented by: [id number] Admin: 12/01/18 13:42 Dose: Not Given Documented by: [id number] Admin: 12/01/18 09:04 Dose: Not Given Documented by: [id number] Admin: 11/30/18 21:50 Dose: 25 mg Documented by: [id number] Admin: 11/30/18 14:00 Dose: 25 mg Documented by: [id number] Admin: 11/30/18 08:18 Dose: 25 mg Documented by: [id number] Admin: 11/29/18 21:03 Dose: 25 mg Documented by: [id number] Admin: 11/29/18 13:04 Dose: 25 mg Documented by: [id number] Admin: 11/29/18 09:14 Dose: 25 mg Documented by: [id number] Admin: 11/28/18 22:38 Dose: 25 mg Documented by: [id number] Admin: 11/28/18 22:26 Dose: Not Given Documented by: [id number] Admin: 11/28/18 15:42 Dose: 25 mg Documented by: [id number] Admin: 11/28/18 08:46 Dose: 25 mg Documented by: [id number] Admin: 11/27/18 20:34 Dose: 25 mg Documented by: [id number] Admin: 11/27/18 11:49 Dose: 25 mg Documented by: [id number] Admin: 11/27/18 07:47 Dose: 25 mg Documented by: [id number] Admin: 11/26/18 19:59 Dose: 25 mg Documented by: [id number] Admin: 11/26/18 12:08 Dose: 25 mg Documented by: [id number] Admin: 11/26/18 07:39 Dose: 25 mg Documented by: [id number] Admin: 11/25/18 20:43 Dose: 25 mg Documented by: [id number] Admin: 11/25/18 15:21 Dose: Not Given Documented by: [id number] Admin: 11/25/18 07:32 Dose: 25 mg Documented by: [id number] Admin: 11/24/18 20:47 Dose: 25 mg Documented by: [id number] Admin: 11/24/18 14:47 Dose: Not Given Documented by: [id number] Admin: 11/24/18 07:39 Dose: 25 mg Documented by: [id number] Admin: 11/23/18 20:52 Dose: 25 mg Documented by: [id number] Admin: 11/23/18 15:02 Dose: 25 mg Documented by: [id number] Admin: 11/23/18 07:43 Dose: 25 mg Documented by: [id number] Admin: 11/22/18 20:59 Dose: 25 mg Documented by: [id number] Admin: 11/22/18 14:02 Dose: 25 mg Documented by: [id number] Admin: 11/22/18 08:43 Dose: 25 mg Documented by: [id number] Admin: 11/21/18 21:16 Dose: 25 mg Documented by: [id number] Admin: 11/21/18 12:56 Dose: Not Given Documented by: [id number] Insulin Aspart (Novolog Flexpen) 0 units SC [facility]; Protocol Stop: 01/01/19 16:29 Last Admin: 12/16/18 08:17 Dose: 12 units Documented by: [id number] Cosigned by: [id number] Admin: 12/15/18 17:16 Dose: 25 units Documented by: [id number] Cosigned by: [id number] Admin: 12/15/18 12:22 Dose: 21 units Documented by: [id number] Cosigned by: [id number] Admin: 12/15/18 08:27 Dose: 12 units Documented by: [id number] Cosigned by: [id number] Insulin Glargine (Lantus Solostar Pen) 15 units SC DAILY NIC; Protocol Stop: 01/15/19 08:59 Last Admin: 12/16/18 08:11 Dose: 15 units Documented by: [id number] Cosigned by: [id number] Levothyroxine Sodium (Synthroid) 150 mcg PO DAILYBB NIC Stop: 12/29/18 06:29 Last Admin: 12/16/18 06:07 Dose: 150 mcg Documented by: [id number] Admin: 12/15/18 06:16 Dose: 150 mcg Documented by: [id number] Admin: 12/14/18 05:20 Dose: 150 mcg Documented by: [id number] Admin: 12/13/18 06:05 Dose: 150 mcg Documented by: [id number] Admin: 12/12/18 06:32 Dose: 150 mcg Documented by: [id number] Admin: 12/11/18 06:14 Dose: 150 mcg Documented by: [id number] Admin: 12/10/18 06:07 Dose: 150 mcg Documented by: [id number] Admin: 12/09/18 06:07 Dose: 150 mcg Documented by: [id number] Admin: 12/08/18 06:25 Dose: 150 mcg Documented by: [id number] Admin: 12/07/18 12:47 Dose: Not Given Documented by: [id number] Admin: 12/06/18 05:08 Dose: 150 mcg Documented by: [id number] Admin: 12/05/18 06:29 Dose: 150 mcg Documented by: [id number] Admin: 12/04/18 05:56 Dose: 150 mcg Documented by: [id number] Admin: 12/03/18 05:06 Dose: 150 mcg Documented by: [id number] Admin: 12/02/18 05:25 Dose: Not Given Documented by: [id number] Admin: 12/01/18 06:10 Dose: Not Given Documented by: [id number] Admin: 11/30/18 05:44 Dose: 150 mcg Documented by: [id number] Admin: 11/29/18 05:30 Dose: 150 mcg Documented by: [id number] Magnesium Oxide (Mag-Ox) 400 mg PO BID NIC Stop: 01/07/19 11:59 Last Admin: 12/16/18 08:16 Dose: 400 mg Documented by: [id number] Admin: 12/15/18 21:32 Dose: 400 mg Documented by: [id number] Admin: 12/15/18 08:18 Dose: 400 mg Documented by: [id number] Admin: 12/14/18 21:41 Dose: 400 mg Documented by: [id number] Admin: 12/14/18 09:26 Dose: 400 mg Documented by: [id number] Admin: 12/13/18 21:17 Dose: 400 mg Documented by: [id number] Admin: 12/13/18 08:07 Dose: 400 mg Documented by: [id number] Admin: 12/12/18 20:51 Dose: 400 mg Documented by: [id number] Admin: 12/12/18 07:09 Dose: 400 mg Documented by: [id number] Admin: 12/11/18 21:28 Dose: 400 mg Documented by: [id number] Admin: 12/11/18 07:23 Dose: 400 mg Documented by: [id number] Admin: 12/10/18 20:27 Dose: 400 mg Documented by: [id number] Admin: 12/10/18 08:01 Dose: 400 mg Documented by: [id number] Admin: 12/09/18 20:37 Dose: 400 mg Documented by: [id number] Admin: 12/09/18 08:13 Dose: 400 mg Documented by: [id number] Admin: 12/08/18 20:05 Dose: 400 mg Documented by: [id number] Admin: 12/08/18 12:36 Dose: 400 mg Documented by: [id number] Miscellaneous (Carbohydrates For Hypoglycemia) 15 - 30 gm PO UD PRN PRN Reason: Hypoglycemia Treatment Stop: 12/30/18 16:59 Last Admin: 11/30/18 16:56 Dose: 15 gm Documented by: [id number] Multivitamins (Multivitamin Tab) 1 tab PO QAM NIC Stop: 12/24/18 17:59 Last Admin: 12/16/18 08:11 Dose: 1 tab Documented by: [id number] Admin: 12/15/18 08:16 Dose: 1 tab Documented by: [id number] Admin: 12/14/18 09:25 Dose: 1 tab Documented by: [id number] Admin: 12/13/18 08:07 Dose: 1 tab Documented by: [id number] Admin: 12/12/18 07:09 Dose: 1 tab Documented by: [id number] Admin: 12/11/18 07:23 Dose: 1 tab Documented by: [id number] Admin: 12/10/18 08:00 Dose: 1 tab Documented by: [id number] Admin: 12/09/18 08:13 Dose: 1 tab Documented by: [id number] Admin: 12/08/18 07:58 Dose: 1 tab Documented by: [id number] Admin: 12/07/18 07:56 Dose: 1 tab Documented by: [id number] Admin: 12/06/18 08:47 Dose: 1 tab Documented by: [id number] Admin: 12/05/18 08:44 Dose: 1 tab Documented by: [id number] Admin: 12/04/18 08:06 Dose: 1 tab Documented by: [id number] Admin: 12/03/18 07:48 Dose: 1 tab Documented by: [id number] Admin: 12/02/18 07:33 Dose: Not Given Documented by: [id number] Admin: 12/01/18 09:03 Dose: Not Given Documented by: [id number] Admin: 11/30/18 08:17 Dose: 1 tab Documented by: [id number] Admin: 11/29/18 09:15 Dose: 1 tab Documented by: [id number] Admin: 11/28/18 08:45 Dose: 1 tab Documented by: [id number] Admin: 11/27/18 07:46 Dose: 1 tab Documented by: [id number] Admin: 11/26/18 07:40 Dose: 1 tab Documented by: [id number] Admin: 11/25/18 07:33 Dose: 1 tab Documented by: [id number] Admin: 11/24/18 20:45 Dose: 1 tab Documented by: [id number] Multivitamins/Minerals (Caltrate Plus) 1 tab PO DAILY NIC Stop: 12/21/18 11:14 Last Admin: 12/16/18 08:10 Dose: 1 tab Documented by: [id number] Admin: 12/15/18 08:17 Dose: 1 tab Documented by: [id number] Admin: 12/14/18 09:26 Dose: 1 tab Documented by: [id number] Admin: 12/13/18 08:07 Dose: 1 tab Documented by: [id number] Admin: 12/12/18 07:09 Dose: 1 tab Documented by: [id number] Admin: 12/11/18 07:24 Dose: 1 tab Documented by: [id number] Admin: 12/10/18 08:00 Dose: 1 tab Documented by: [id number] Admin: 12/09/18 08:13 Dose: 1 tab Documented by: [id number] Admin: 12/08/18 07:57 Dose: 1 tab Documented by: [id number] Admin: 12/07/18 07:56 Dose: 1 tab Documented by: [id number] Admin: 12/06/18 08:48 Dose: 1 tab Documented by: [id number] Admin: 12/05/18 08:43 Dose: 1 tab Documented by: [id number] Admin: 12/04/18 08:06 Dose: 1 tab Documented by: [id number] Admin: 12/03/18 07:48 Dose: 1 tab Documented by: [id number] Admin: 12/02/18 07:33 Dose: Not Given Documented by: [id number] Admin: 12/01/18 09:03 Dose: Not Given Documented by: [id number] Admin: 11/30/18 08:17 Dose: 1 tab Documented by: [id number] Admin: 11/29/18 09:14 Dose: 1 tab Documented by: [id number] Admin: 11/28/18 08:46 Dose: 1 tab Documented by: [id number] Admin: 11/27/18 07:46 Dose: 1 tab Documented by: [id number] Admin: 11/26/18 07:39 Dose: 1 tab Documented by: [id number] Admin: 11/25/18 07:33 Dose: 1 tab Documented by: [id number] Admin: 11/24/18 07:39 Dose: 1 tab Documented by: [id number] Admin: 11/23/18 07:44 Dose: 1 tab Documented by: [id number] Admin: 11/22/18 08:42 Dose: 1 tab Documented by: [id number] Admin: 11/21/18 11:34 Dose: Not Given Documented by: [id number] Ondansetron HCl (Zofran) 4 mg IV Q6H PRN PRN Reason: Nausea Stop: 12/20/18 15:54 Last Admin: 11/20/18 20:53 Dose: 4 mg Documented by: [id number] Ranitidine HCl (Zantac) 150 mg PO HS NIC Stop: 12/21/18 20:59 Last Admin: 12/15/18 21:30 Dose: 150 mg Documented by: [id number] Admin: 12/14/18 21:39 Dose: 150 mg Documented by: [id number] Admin: 12/13/18 21:16 Dose: 150 mg Documented by: [id number] Admin: 12/12/18 20:51 Dose: 150 mg Documented by: [id number] Admin: 12/11/18 21:28 Dose: 150 mg Documented by: [id number] Admin: 12/10/18 20:30 Dose: 150 mg Documented by: [id number] Admin: 12/09/18 20:37 Dose: 150 mg Documented by: [id number] Admin: 12/08/18 20:05 Dose: 150 mg Documented by: [id number] Admin: 12/07/18 21:11 Dose: 150 mg Documented by: [id number] Admin: 12/06/18 20:46 Dose: 150 mg Documented by: [id number] Admin: 12/05/18 21:02 Dose: 150 mg Documented by: [id number] Admin: 12/04/18 20:36 Dose: 150 mg Documented by: [id number] Admin: 12/03/18 21:12 Dose: 150 mg Documented by: [id number] Admin: 12/02/18 21:36 Dose: 150 mg Documented by: [id number] Admin: 12/01/18 21:14 Dose: Not Given Documented by: [id number] Admin: 11/30/18 21:49 Dose: 150 mg Documented by: [id number] Admin: 11/29/18 21:03 Dose: 150 mg Documented by: [id number] Admin: 11/28/18 20:31 Dose: 150 mg Documented by: [id number] Admin: 11/27/18 20:38 Dose: 150 mg Documented by: [id number] Admin: 11/26/18 20:00 Dose: 150 mg Documented by: [id number] Admin: 11/25/18 20:43 Dose: 150 mg Documented by: [id number] Admin: 11/24/18 20:48 Dose: 150 mg Documented by: [id number] Admin: 11/23/18 20:53 Dose: 150 mg Documented by: [id number] Admin: 11/22/18 21:00 Dose: 150 mg Documented by: [id number] Admin: 11/21/18 21:16 Dose: 150 mg Documented by: [id number] Risperidone (Risperdal) 1 mg PO BID NIC Stop: 12/21/18 11:14 Last Admin: 12/16/18 08:11 Dose: 1 mg Documented by: [id number] Admin: 12/15/18 21:29 Dose: 1 mg Documented by: [id number] Admin: 12/15/18 08:16 Dose: 1 mg Documented by: [id number] Admin: 12/14/18 21:38 Dose: 1 mg Documented by: [id number] Admin: 12/14/18 09:26 Dose: 1 mg Documented by: [id number] Admin: 12/13/18 21:16 Dose: 1 mg Documented by: [id number] Admin: 12/13/18 08:07 Dose: 1 mg Documented by: [id number] Admin: 12/12/18 20:51 Dose: 1 mg Documented by: [id number] Admin: 12/12/18 07:08 Dose: 1 mg Documented by: [id number] Admin: 12/11/18 21:27 Dose: 1 mg Documented by: [id number] Admin: 12/11/18 07:23 Dose: 1 mg Documented by: [id number] Admin: 12/10/18 20:29 Dose: 1 mg Documented by: [id number] Admin: 12/10/18 08:01 Dose: 1 mg Documented by: [id number] Admin: 12/09/18 20:37 Dose: 1 mg Documented by: [id number] Admin: 12/09/18 08:12 Dose: 1 mg Documented by: [id number] Admin: 12/08/18 20:06 Dose: 1 mg Documented by: [id number] Admin: 12/08/18 07:56 Dose: 1 mg Documented by: [id number] Admin: 12/07/18 21:09 Dose: 1 mg Documented by: [id number] Admin: 12/07/18 07:57 Dose: 1 mg Documented by: [id number] Admin: 12/06/18 20:45 Dose: 1 mg Documented by: [id number] Admin: 12/06/18 08:48 Dose: 1 mg Documented by: [id number] Admin: 12/05/18 21:03 Dose: 1 mg Documented by: [id number] Admin: 12/05/18 08:44 Dose: 1 mg Documented by: [id number] Admin: 12/04/18 20:35 Dose: 1 mg Documented by: [id number] Admin: 12/04/18 08:07 Dose: 1 mg Documented by: [id number] Admin: 12/03/18 21:12 Dose: 1 mg Documented by: [id number] Admin: 12/03/18 07:48 Dose: 1 mg Documented by: [id number] Admin: 12/02/18 21:37 Dose: 1 mg Documented by: [id number] Admin: 12/02/18 07:34 Dose: Not Given Documented by: [id number] Admin: 12/01/18 21:13 Dose: Not Given Documented by: [id number] Admin: 12/01/18 09:04 Dose: Not Given Documented by: [id number] Admin: 11/30/18 21:49 Dose: 1 mg Documented by: [id number] Admin: 11/30/18 08:17 Dose: 1 mg Documented by: [id number] Admin: 11/29/18 21:02 Dose: 1 mg Documented by: [id number] Admin: 11/29/18 09:15 Dose: 1 mg Documented by: [id number] Admin: 11/28/18 22:39 Dose: 1 mg Documented by: [id number] Admin: 11/28/18 22:26 Dose: Not Given Documented by: [id number] Admin: 11/28/18 08:46 Dose: 1 mg Documented by: [id number] Admin: 11/27/18 20:34 Dose: 1 mg Documented by: [id number] Admin: 11/27/18 07:47 Dose: 1 mg Documented by: [id number] Admin: 11/26/18 19:59 Dose: 1 mg Documented by: [id number] Admin: 11/26/18 07:40 Dose: 1 mg Documented by: [id number] Admin: 11/25/18 20:43 Dose: 1 mg Documented by: [id number] Admin: 11/25/18 07:33 Dose: 1 mg Documented by: [id number] Admin: 11/24/18 20:48 Dose: 1 mg Documented by: [id number] Admin: 11/24/18 07:39 Dose: 1 mg Documented by: [id number] Admin: 11/23/18 20:52 Dose: 1 mg Documented by: [id number] Admin: 11/23/18 07:45 Dose: 1 mg Documented by: [id number] Admin: 11/22/18 20:58 Dose: 1 mg Documented by: [id number] Admin: 11/22/18 08:42 Dose: 1 mg Documented by: [id number] Admin: 11/21/18 21:16 Dose: 1 mg Documented by: [id number] Admin: 11/21/18 11:34 Dose: Not Given Documented by: [id number] PG Care Time/CCT Total # of Minutes Spent Total Time Spent with Patient: Total time spent is greater than 50% in coordination of care (as documented) at patient's floor/unit and/or counseling patient: Resident Activity Tracking Resident Involvement: Resident Care Provided Care Provided: Adult Hospital Medicine (ICU) (1) Altered mental status Altered mental status type: unspecified Qualified Code(s): R41.82 - Altered mental status, unspecified (2) Acute pancreatitis Acute pancreatitis complication: unspecified Pancreatitis type: unspecified pancreatitis type Qualified Code(s): K85.90 - Acute pancreatitis without necrosis or infection, unspecified
[2018-12-16] MEDS: CALCIUM 600MG + VIT D 400 IU TAB PO SCH (08:10)
[2018-12-16] MEDS: DIVALPROEX DELAY RELEASE 500 MG TAB PO SCH ×2 (08:10→21:05)
[2018-12-16] MEDS: DULOXETINE HCL 60 MG CAP PO SCH (08:10)
[2018-12-16] MEDS: risperiDONE 1 MG TABLET PO SCH ×2 (08:11→21:07)
[2018-12-16] MEDS: CYANOCOBALAMIN 500 MCG TABLET (VITAMIN B-12) PO SCH (08:11)
[2018-12-16] MEDS: IMIPRAMINE HCL 25 MG TAB PO SCH ×3 (08:11→21:07)
[2018-12-16] MEDS: MULTIVITAMIN TAB PO SCH (08:11)
[2018-12-16] MEDS: LEVOFLOXACIN/D5W 750 MG/150 ML BAG IV SCH (08:16)
[2018-12-16] MEDS: MAGNESIUM OXIDE 400 MG TAB PO SCH ×2 (08:16→21:29)
[2018-12-16] MEDS: INSULIN ASPART 100 UNITS/ML 3 ML PEN SC SCH ×4 (08:17→21:06)
[2018-12-16] MEDS ORDERED: INSULIN GLARGINE SOLOSTAR 100 UNITS/ML 3 ML PEN SC SCH (09:00)
--- NOTE | 2018-12-16 10:48 | Infectious Disease Progress Nt ---
Date of Service December 16, 2018 Assessment & Plan (1) Gram negative septicemia: likely related to gu source, agree with change to levaquin, will need 14 days from first negative culture, ok to change to po levaquin. no new ID recs at this time (2) UTI (urinary tract infection): Subjective pt states he is feeling much improved, no f/c. abx changed to IV levaquin, tolerating well. blood and urine cultures growing E. coli, resistant to augme ntin, keflex and I to zosyn. repeat cultures negative, wbc improved, 5 today, creat 1.1. no abd pain, eating well. denies n/v/d, no cp, sob, solo, sob. overall feeling well. Review of Systems Review of Systems: All systems reviewed & are unremarkable except as noted in HPI & below Physical Exam Constitutional: WD/WN, vitals as above Eyes: PERRL, conjunctivae normal, anicteric sclerae ENMT: external ear and nose normal, oropharynx normal Neck: normal visual inspection Respiratory: normal respiratory effort, lungs clear to auscultation Cardiovascular: RRR, no murmur, no edema Gastrointestinal (Abdomen): normal bowel sounds, soft, nontender, no hepatosplenomegaly Musculoskeletal: no cyanosis or clubbing, extremities motor strength 5/5 Psychiatric: A+Ox3, euthymic affect Results & Data Vital Signs (Past 12 Hours) Vital Signs Temp Pulse Resp BP Pulse Ox 12/16/18 09:15 138 H 16 99 12/16/18 09:00 84 15 172/103 H 94 12/16/18 08:45 79 18 99 12/16/18 08:30 75 12 99 12/16/18 08:15 85 30 H 90 12/16/18 08:01 96 H 12 150/83 H 100 12/16/18 08:00 36.4 C L 80 10 L 100 12/16/18 07:45 64 8 L 100 12/16/18 07:30 61 10 L 100 12/16/18 07:15 60 13 97 12/16/18 07:01 70 9 L 189/94 H 100 12/16/18 07:00 57 L 11 L 99 12/16/18 06:45 61 15 100 12/16/18 06:30 65 14 100 12/16/18 06:15 64 14 100 08/05/19 06:08 74 17 155/71 H 94 12/16/18 06:00 65 21 12/16/18 05:45 94 12/16/18 05:30 61 100 12/16/18 05:15 62 18 99 12/16/18 05:00 66 14 145/77 H 100 12/16/18 04:45 71 7 L 100 12/16/18 04:30 56 L 10 L 100 12/16/18 04:15 58 L 10 L 100 12/16/18 04:00 55 L 9 L 157/86 H 100 12/16/18 03:45 60 10 L 100 12/16/18 03:30 55 L 8 L 100 12/16/18 03:15 58 L 12 100 12/16/18 03:00 57 L 6 L 166/85 H 100 12/16/18 02:45 78 16 99 12/16/18 02:30 81 10 L 100 12/16/18 02:15 55 L 9 L 100 12/16/18 02:00 56 L 7 L 155/89 H 100 12/16/18 01:45 57 L 8 L 100 12/16/18 01:30 55 L 9 L 100 12/16/18 01:15 56 L 10 L 100 12/16/18 01:00 56 L 7 L 155/85 H 99 12/16/18 00:45 55 L 8 L 100 12/16/18 00:30 36.5 C 53 L 12 100 12/16/18 00:15 54 L 12 94 12/16/18 00:00 54 L 12 138/76 93 12/15/18 23:45 56 L 12 96 12/15/18 23:30 55 L 11 L 95 12/15/18 23:15 60 18 95 12/15/18 23:00 72 17 155/87 H 94 Laboratory Results Microbiology 12/13/18 20:16 Blood Aerobic Blood Culture - Preliminary Coag neg staph not lugdunensis 12/13/18 20:16 Blood Anaerobic Blood Culture - Preliminary No growth in Anaerobic bottle after 48 hours. 12/15/18 04:21 Blood Aerobic Blood Culture - Preliminary No growth in Aerobic bottle after 24 hours. 12/15/18 04:21 Blood Anaerobic Blood Culture - Preliminary No growth in Anaerobic bottle after 24 hours. 12/15/18 04:41 Blood Aerobic Blood Culture - Preliminary No growth in Aerobic bottle after 24 hours. 12/13/18 19:54 Blood Aerobic Blood Culture - Preliminary No growth in Aerobic bottle after 48 hours. 12/13/18 19:54 Blood Anaerobic Blood Culture - Preliminary No growth in Anaerobic bottle after 48 hours. 12/13/18 19:54 Blood Fungal Smear - Final 12/13/18 19:54 Blood Fungal Culture - Preliminary No yeast or fungus isolated - Report 1, Additional Report to Follow. 12/12/18 04:30 Urine,Clean Catch Urine Culture - Final Escherichia coli 12/12/18 07:48 Blood Aerobic Blood Culture - Preliminary Escherichia coli 12/12/18 07:48 Blood Anaerobic Blood Culture - Final 12/12/18 07:59 Blood Aerobic Blood Culture - Final Escherichia coli 12/12/18 07:59 Blood Anaerobic Blood Culture - Final Escherichia coli 11/20/18 17:50 Blood Aerobic Blood Culture - Final No growth in Aerobic bottle after 5 days. 11/20/18 17:50 Blood Anaerobic Blood Culture - Final 11/20/18 17:31 Blood Aerobic Blood Culture - Final No growth in Aerobic bottle after 5 days. 11/20/18 17:31 Blood Anaerobic Blood Culture - Final No growth in Anaerobic bottle after 5 days. 11/20/18 21:48 Urine,Clean Catch Urine Culture - Final No growth - less than 1,000 colonies/mL. PG Care Time/CCT Total # of Minutes Spent Total Time Spent with Patient: Total time spent is greater than 50% in coordination of care (as documented) at patient's floor/unit and/or counseling patient:
--- NOTE | 2018-12-16 12:12 | Pharmacy Report ---
Pharmacy Glycemic Short Note 2 - Date of Service December 16, 2018 - Glycemic Short BSG Results (Last 24 hours): 12/15/18 12/15/18 12/15/18 16:22 20:12 21:21 Glucose POC Glucose 291 H 260 H 226 H 12/15/18 12/15/18 12/16/18 22:15 23:17 00:24 Glucose POC Glucose 164 H 151 H 128 H 12/16/18 12/16/18 12/16/18 02:03 03:10 03:46 Glucose 97 POC Glucose 102 H 113 H 12/16/18 12/16/18 12/16/18 03:50 04:58 06:12 Glucose POC Glucose 101 H 111 H 91 12/16/18 07:58 Glucose POC Glucose 136 H OUTPATIENT ANTIDIABETIC REGIMEN: None A1c 5.9% on 11/28/18 ASSESSMENT: * Patient became hyperglycemic last evening requiring an insulin infusion which was turned off this morning. Will continue with an increased daily dose of Lantus, and discontinue when Hydrocortisone is discontinued (currently hct 50mg q8). I am hesitant to increase insulin doses too much as patient has been very labile with BSGs and insulin requirements. Lunch BSG elevated but acceptable at 198 mg/dL. If BSG continues to rise this evening may consider tightening NovoLog scale further and/or adding an extra 5 units of lantus @ 2100. I will also add overnight NovoLog checks. * Continue tighten CF and CR at this time while on IV steroids. PLAN FOR INPATIENT GLYCEMIC CONTROL: * Basal insulin - Lantus 15 units daily * Bolus insulin * NovoLog per scale ACHS and @ 0000,0400 * Goal Range: Low 110 mg/dL - High 140 mg/dL * Correction Factor: 15 mg/dL/unit * Nutritional / Prandial insulin per carb ratio of 1 unit per 4 grams CHO consumed PLAN FOR DISCHARGE: * A1c = 5.9%; this is in the pre-diabetic range * Consider lifestyle modifications and/or addition of metformin to slow progression to diabetes
--- NOTE | 2018-12-16 13:12 | Hospitalist Progress Note ---
Date of Service December 16, 2018 Assessment & Plan (1) Severe sepsis: Secondary to E. coli UTI, gram-negative bacilli bacteremia Associated with acute on chronic kidney failure, episode of hypotension hypotension, bradycardia resolved Urine culture: Positive for E. coli, ESBL Blood Cultures: E coli, Staph coag neg d/c'd Dapto continue Levaquin IV d/c IV fluids taper hydrocortisone to q12h ID consulted, appreciate recommendations (2) UTI (urinary tract infection): Management as noted above (3) Acute renal failure superimposed on stage 3 chronic kidney disease: Creatinine increased to 2.4 Likely from hypotension, sepsis Improved d/c IV fluids (4) Acute metabolic encephalopathy: Resolved In the setting of pancreatitis, pneumonia, possible adrenal insufficiency Subclinical hypothyroidism contributing? TSH 10.4, free T4 1.39 Increased levothyroxine from 125 to 150 mcg daily repeat thyroid function tests in 4 to 6 weeks Most lethargic yesterday, improved with improvement of heart rate and blood pressure Low hemoglobin Multifactorial and most likely due to ongoing infection and poor nutrition No acute blood loss Given 2 units of packed RBCs HGlobin 9.2, stable so far for the past few days No signs of active bleeding (5) Small bowel obstruction: Resolve with conservative management Has had diarrhea C. difficile toxin has been negative but C. difficile gene has been positive Discussed with ID Not infectious and does not require any treatment Diarrhea resolved (6) Pancreatitis: Presented with abdominal pain and nausea CT scan did show:CT abdomen pelvis revealed acute pancreatitis, trace pleural effusion and trace abdominal pelvic ascites, gallbladder sludge, diverticulosis Patient bowel rest, IV fluids Lipase normalized Resolved Patient's CT abdomen showing gallbladder sludge GI consulted, recommend eventual cholecystectomy to prevent recurrence of pancreatitis Lipase 1400, no signs of abdominal pain Continue to monitor (7) Pneumonia: Chest x-ray concerning for left basilar opacity and pleural effusion possibly consistent with pneumonia Urinalysis does have positive leukoesterase and nitrites, but negative bacteria -Per patient's sister he has history of UTI which presents as confusion Patient does not meet Sepsis Criteria Continue IV antibiotics with Zosyn, obtain mRSA nasal swab if negative will not cover for MRSA given concern for SHIELA Abd U/S Limited to RUQ to r/o gall bladder pathology as etiology of pancreatitis - currently unknown no ETOH or NSAID obtain NH3, blood cultures: Negative Finished antibiotics Levaquin -Resolved (8) Hyperglycemia: New diagnosis, patient not on oral DM meds or insulin at home Blood glucose running in the 300s A1c 5.9 Possibly from pancreatitis? Glycemic control by pharmacist consulted Insulin Lantus and sliding scale aspart started Continue to monitor (9) Electrolyte abnormality: Has multiple electrolytes abnormalities Low potassium, magnesium and phosphate Replaced (10) Hypertension: Hold amlodipine and carvedilol in light of hypotension and bradycardia restart Amlodipine if HTN persisting (11) Hypothyroidism: Continue levothyroxine (12) Bipolar disorder: Depakote reduced from 1000 twice daily to 500 mg twice daily per patient's sister's request Seems to be tolerating reduced dose so far Continue Risperidone (13) Thrombocytopenia: Platelet count stable 60k Chronically runs between 60 and 100 Had peripheral smear done in admission 04/2018 which was unrevealing no signs of bleeding hold Lovenox (14) Leg edema, right: Not on any coagulation for DVT prophylaxis secondary to thrombocytopenia, possible procedures No DVT by ultrasound (15) DVT prophylaxis: SCDS/TEDS HOLD Lovenox for low plt Disposition Evaluation management of sepsis and UTI progress Subjective ff up for sepsis, UTI seen resting in bed, comfortable oriented x 2 in good spirits states he feels improved today denies abdominal pain, nausea, fever/chills no chest pain, dyspnea, palpitations, dizziness no other symptoms Review of Systems Review of Systems: All systems reviewed & are unremarkable except as noted in HPI & below Physical Exam Physical Exam: General- oriented x 2, not in distress, speaks in sentences with no effort or accessory muscle use Eyes- anicteric Neck- no JVD Lungs- clear BS BL Heart- normal rate, regular rhythm; no murmurs Abdomen- normal bowel sounds, nondistended, soft, no tenderness Extremities- no pretibial edema, no calf tenderness Neuro- alert, oriented x 2; no gross focal neurologic deficits Skin- warm & dry Results & Data Vital Signs (Past 12 Hours) Vital Signs Temp Pulse Resp BP Pulse Ox 12/16/18 09:15 138 H 16 99 12/16/18 09:00 84 15 172/103 H 94 12/16/18 08:45 79 18 99 12/16/18 08:30 75 12 99 12/16/18 08:15 85 30 H 90 12/16/18 08:01 96 H 12 150/83 H 100 12/16/18 08:00 36.4 C L 80 10 L 100 12/16/18 07:45 64 8 L 100 12/16/18 07:30 61 10 L 100 12/16/18 07:15 60 13 97 12/16/18 07:01 70 9 L 189/94 H 100 12/16/18 07:00 57 L 11 L 99 12/16/18 06:45 61 15 100 12/16/18 06:30 65 14 100 12/16/18 06:15 64 14 100 12/16/18 06:08 74 17 155/71 H 94 12/16/18 06:00 65 21 12/16/18 05:45 94 12/16/18 05:30 61 100 12/16/18 05:15 62 18 99 12/16/18 05:00 66 14 145/77 H 100 12/16/18 04:45 71 7 L 100 12/16/18 04:30 56 L 10 L 100 12/16/18 04:15 58 L 10 L 100 12/16/18 04:00 55 L 9 L 157/86 H 100 12/16/18 03:45 60 10 L 100 12/16/18 03:30 55 L 8 L 100 12/16/18 03:15 58 L 12 100 12/16/18 03:00 57 L 6 L 166/85 H 100 12/16/18 02:45 78 16 99 12/16/18 02:30 81 10 L 100 12/16/18 02:15 55 L 9 L 100 12/16/18 02:00 56 L 7 L 155/89 H 100 12/16/18 01:45 57 L 8 L 100 12/16/18 01:30 55 L 9 L 100 12/16/18 01:15 56 L 10 L 100
[2018-12-16] MEDS ORDERED: HYDROCORTISONE SOD 50 MG in SYRINGE 0 ML IV SCH (22:00)
[2018-12-16] MEDS ORDERED: CARVEDILOL 3.125 MG TAB PO SCH (22:30)
[2018-12-17] MEDS: INSULIN ASPART 100 UNITS/ML 3 ML PEN SC SCH ×6 (00:02→21:15)
[2018-12-17] MEDS: LEVOTHYROXINE SODIUM 150 MCG TABLET PO SCH (05:49)
[2018-12-17 06:43] LABS: Hematocrit (blood only) 29.1 % (42-52); Hemoglobin 9.5 g/dL (14.0-18.0); Mean Corpuscular Hgb Conc 32.6 g/dL (32-36); Mean Corpuscular Volume 92.1 fL (80-100); Nucleated RBC # (auto) 0.04 K/uL (0-0); Nucleated RBC % (auto) 0.8 %; RDW Standard Deviation 56.4 fL (36.4-46.3); Red Blood Count 3.16 M/uL (4.7-6.1); White Blood Count 5.13 K/uL (4.8-10.8)
[2018-12-17 07:03] LABS: Mean Platelet Volume 9.4 fL (7.4-10.4); Platelet Count 87 K/uL (130-400)
[2018-12-17 07:12] LABS: BUN Creatinine Ratio 26.9 (10-20); Calcium 9.2 mg/dl (8.5-10.1); Creatinine Clr Calc Pharmacy 89.9 ml/min; Est GFR (African American) 86.2; Est GFR (Non-African American) 74.4; Magnesium 2.2 mg/dl (1.8-2.4)
[2018-12-17 07:13] LABS: Basophils # (auto) 0.02 K/uL (0-0.2); Basophils % (auto) 0.4 %; Immature Granulocytes % (auto) 1.9 %; Lymphocytes # (auto) 1.06 K/uL (1.2-3.4); Lymphocytes % (auto) 20.7 %; Monocytes # (auto) 0.37 K/uL (0.11-0.59); Monocytes % (auto) 7.2 %; Neutrophils # (auto) 3.58 K/uL (1.4-6.5); Neutrophils % (auto) 69.8 %
[2018-12-17 07:16] LABS: Phosphorus 2.7 mg/dl (2.5-4.9)
[2018-12-17] MEDS ORDERED: AMLODIPINE BESYLATE 5 MG TAB PO ONE (07:41)
[2018-12-17] MEDS: LEVOFLOXACIN/D5W 750 MG/150 ML BAG IV SCH (08:14)
[2018-12-17] MEDS: CALCIUM 600MG + VIT D 400 IU TAB PO SCH (08:14)
[2018-12-17] MEDS: risperiDONE 1 MG TABLET PO SCH ×2 (08:15→20:16)
[2018-12-17] MEDS: DIVALPROEX DELAY RELEASE 500 MG TAB PO SCH ×2 (08:16→20:17)
[2018-12-17] MEDS: IMIPRAMINE HCL 25 MG TAB PO SCH ×3 (08:16→20:16)
[2018-12-17] MEDS: MULTIVITAMIN TAB PO SCH (08:16)
[2018-12-17] MEDS: MAGNESIUM OXIDE 400 MG TAB PO SCH ×2 (08:16→20:16)
[2018-12-17] MEDS: DULOXETINE HCL 60 MG CAP PO SCH (08:17)
[2018-12-17] MEDS: CYANOCOBALAMIN 500 MCG TABLET (VITAMIN B-12) PO SCH (08:17)
[2018-12-17] MEDS ORDERED: INSULIN GLARGINE SOLOSTAR 100 UNITS/ML 3 ML PEN SC SCH (09:00)
--- NOTE | 2018-12-17 11:00 | Pharmacy Report ---
Pharmacy Glycemic Short Note 2 - Date of Service December 17, 2018 - Glycemic Short BSG Results (Last 24 hours): 12/16/18 12/16/18 12/16/18 06:12 11:23 16:41 Glucose POC Glucose 91 193 H 81 12/16/18 12/17/18 12/17/18 20:29 00:00 03:31 Glucose POC Glucose 108 H 125 H 152 H 12/17/18 12/17/18 06:16 07:16 Glucose 142 H POC Glucose 128 H OUTPATIENT ANTIDIABETIC REGIMEN: * None * A1c 5.9% on 11/28/18 ASSESSMENT: 12/17/18: * BSGs have been reasonably well-controlled for the past 24 hours. * IV hydrocortisone was discontinued this morning, which is expected to resolve patient's hyperglycemia. * Will continue Novolog for correction ONLY for now and modify regimen as needed. Expect that patient may not require any insulin without any steroids ordered. 12/16/18 * Patient became hyperglycemic last evening requiring an insulin infusion (per ICU protocol) which was turned off this morning. Will continue with an increased daily dose of Lantus, and discontinue when Hydrocortisone is discontinued (currently hct 50mg q8). I am hesitant to increase insulin doses too much as patient has been very labile with BSGs and insulin requirements. Lunch BSG elevated but acceptable at 198 mg/dL. If BSG continues to rise this evening may consider tightening NovoLog scale further and/or adding an extra 5 units of lantus @ 2100. I will also add overnight NovoLog checks. * Continue tighten CF and CR at this time while on IV steroids. PLAN FOR INPATIENT GLYCEMIC CONTROL: * Basal insulin - Lantus 15 units daily * Bolus insulin * NovoLog per scale ACHS * Goal Range: Low 110 mg/dL - High 140 mg/dL * Correction Factor: 20 mg/dL/unit * Nutritional / Prandial insulin: none for now (will modify if steroids are re-started) PLAN FOR DISCHARGE: * A1c = 5.9%; this is in the pre-diabetic range * Consider lifestyle modifications and/or addition of metformin to slow p rogression to diabetes
--- NOTE | 2018-12-17 14:13 | Infectious Disease Progress Nt ---
Date of Service December 17, 2018 Assessment & Plan (1) Gram negative septicemia: likely related to gu source, agree with change to levaquin, will need 14 days from first negative culture, ok to change to po levaquin. no new ID recs at this time (2) UTI (urinary tract infection): Subjective transferred from ICU, tolerating levaquin, reppeat blood cultures remain negative, wbc 5, afebrile. Results & Data Vital Signs (Past 12 Hours) Vital Signs Temp Pulse Resp BP BP BP Pulse Ox 12/17/18 11:19 36.5 C 72 18 129/77 96 12/17/18 07:14 36.4 C L 75 19 183/118 H 91 12/17/18 03:22 36.4 C L 54 L 18 169/85 H 92 Laboratory Results Microbiology 12/15/18 04:21 Blood Aerobic Blood Culture - Preliminary No growth in Aerobic bottle after 48 hours. 12/15/18 04:21 Blood Anaerobic Blood Culture - Preliminary No growth in Anaerobic bottle after 48 hours. 12/15/18 04:41 Blood Aerobic Blood Culture - Preliminary No growth in Aerobic bottle after 48 hours. 12/15/18 04:41 Blood Anaerobic Blood Culture - Final 12/13/18 20:16 Blood Aerobic Blood Culture - Preliminary Coag neg staph not lugdunensis 12/13/18 20:16 Blood Anaerobic Blood Culture - Preliminary No growth in Anaerobic bottle after 48 hours. 12/13/18 19:54 Blood Aerobic Blood Culture - Preliminary No growth in Aerobic bottle after 48 hours. 12/13/18 19:54 Blood Anaerobic Blood Culture - Preliminary No growth in Anaerobic bottle after 48 hours. 12/13/18 19:54 Blood Fungal Smear - Final 12/13/18 19:54 Blood Fungal Culture - Preliminary No yeast or fungus isolated - Report 1, Additional Report to Follow. 12/12/18 04:30 Urine,Clean Catch Urine Culture - Final Escherichia coli 12/12/18 07:48 Blood Aerobic Blood Culture - Preliminary Escherichia coli 12/12/18 07:48 Blood Anaerobic Blood Culture - Final 12/12/18 07:59 Blood Aerobic Blood Culture - Final Escherichia coli 12/12/18 07:59 Blood Anaerobic Blood Culture - Final Escherichia coli 11/20/18 17:50 Blood Aerobic Blood Culture - Final No growth in Aerobic bottle after 5 days. 11/20/18 17:50 Blood Anaerobic Blood Culture - Final 11/20/18 17:31 Blood Aerobic Blood Culture - Final No growth in Aerobic bottle after 5 days. 11/20/18 17:31 Blood Anaerobic Blood Culture - Final No growth in Anaerobic bottle after 5 days. 11/20/18 21:48 Urine,Clean Catch Urine Culture - Final No growth - less than 1,000 colonies/mL.
[2018-12-17] MEDS ORDERED: PERFLUTREN LIPID MICROSPHERE (DEFINITY) IV ONE (15:40)
--- NOTE | 2018-12-17 16:51 | Hospitalist Progress Note ---
Date of Service December 17, 2018 Assessment & Plan (1) Severe sepsis: Secondary to E. coli UTI, bacteremia Associated with acute on chronic kidney failure, episode of hypotension hypotension, bradycardia resolved Urine culture: Positive for E. coli, ESBL Blood Cultures: E coli, Staph coag neg d/c'd Dapto continue Levaquin IV Given IV fluids Given hydrocortisone stress dose, prednisone 10 mg 1 dose today, usual prednisone 5 mg daily tomorrow ID consulted, appreciate recommendations (2) UTI (urinary tract infection): Management as noted above (3) Nonsustained ventricular tachycardia: Noted 8 beat of nonsustained V. tach on threat monitoring analyst 12/17/2018 Patient is off usual carvedilol in light of episode of severe bradycardia 12/13/2018 Echocardiogram ordered cardiology evaluation if persistent (4) Hypertension: Was holding amlodipine and carvedilol in light of hypotension and bradycardia Blood pressure uncontrolled today, amlodipine 10 mg started Hold carvedilol for now in light of episode of bradycardia last December 13, 2018 associated with hypotension and lethargy Monitor (5) Acute renal failure superimposed on stage 3 chronic kidney disease: Creatinine increased to 2.4 Likely from hypotension, sepsis Improved d/c IV fluids (6) Acute metabolic encephalopathy: Resolved In the setting of pancreatitis, pneumonia, possible adrenal insufficiency Subclinical hypothyroidism contributing? TSH 10.4, free T4 1.39 Increased levothyroxine from 125 to 150 mcg daily repeat thyroid function tests in 4 to 6 weeks Most lethargic yesterday, improved with improvement of heart rate and blood pressure Low hemoglobin Multifactorial and most likely due to ongoing infection and poor nutrition No acute blood loss Given 2 units of packed RBCs HGlobin 9.2, stable so far for the past few days No signs of active bleeding (7) Small bowel obstruction: Resolved with conservative management Has had diarrhea C. difficile toxin has been negative but C. difficile gene has been positive Discussed with ID Not infectious and does not require any treatment Diarrhea resolved (8) Pancreatitis: Presented with abdominal pain and nausea CT scan did show:CT abdomen pelvis revealed acute pancreatitis, trace pleural effusion and trace abdominal pelvic ascites, gallbladder sludge, diverticulosis Patient bowel rest, IV fluids Lipase normalized Resolved Patient's CT abdomen showing gallbladder sludge GI consulted, recommend eventual cholecystectomy to prevent recurrence of pancreatitis Lipase 1400, no signs of abdominal pain Continue to monitor (9) Pneumonia: Chest x-ray concerning for left basilar opacity and pleural effusion possibly consistent with pneumonia Urinalysis does have positive leukoesterase and nitrites, but negative bacteria -Per patient's sister he has history of UTI which presents as confusion Patient does not meet Sepsis Criteria Continue IV antibiotics with Zosyn, obtain mRSA nasal swab if negative will not cover for MRSA given concern for SHIELA Abd U/S Limited to RUQ to r/o gall bladder pathology as etiology of pancreatitis - currently unknown no ETOH or NSAID obtain NH3, blood cultures: Negative Finished antibiotics Levaquin -Resolved (10) Hyperglycemia: New diagnosis, patient not on oral DM meds or insulin at home Blood glucose running in the 300s A1c 5.9 Possibly from pancreatitis? Glycemic control by pharmacist consulted Insulin Lantus and sliding scale aspart started Continue to monitor (11) Electrolyte abnormality: Has multiple electrolytes abnormalities Low potassium, magnesium and phosphate Replaced (12) Hypothyroidism: Continue levothyroxine (13) Bipolar disorder: Depakote reduced from 1000 twice daily to 500 mg twice daily per patient's sister's request Seems to be tolerating reduced dose so far Continue Risperidone (14) Thrombocytopenia: Platelet count stable 60k Chronically runs between 60 and 100 Had peripheral smear done in admission 04/2018 which was unrevealing Thrombocytopenia worsens with infection no signs of bleeding Lovenox on hold (15) Leg edema, right: Not on any coagulation for DVT prophylaxis secondary to thrombocytopenia, possible procedures No DVT by ultrasound (16) DVT prophylaxis: SCDS/TEDS HOLD Lovenox for low plt Disposition Evaluation and management of sepsis and UTI progress Management on board, will need to transition to residential facility once medically stable Subjective Follow-up for sepsis secondary to E. coli UTI, bacteremia Seen resting in bed, comfortable, in good spirits States he feels fine today Denies fevers or chills, dizziness, shortness of breath, abdominal pain No problems with urination Denies other symptoms Review of Systems Review of Systems: All systems reviewed & are unremarkable except as noted in HPI & below Physical Exam Physical Exam: General- oriented x2 , not in distress, speaks in sentences with no effort or accessory muscle use Eyes- anicteric Neck- no JVD Lungs- clear BS, no crackles, no wheezing bilaterally Heart- normal rate, regular rhythm; no murmurs Abdomen- normal bowel sounds, nondistended, soft, no tenderness Extremities- no pretibial edema, no calf tenderness Neuro- alert, oriented x 2; no gross focal neurologic deficits Skin- warm & dry Results & Data Vital Signs (Past 12 Hours) Vital Signs Temp Pulse Resp BP BP Pulse Ox 12/17/18 11:19 36.5 C 72 18 129/77 96 12/17/18 07:14 36.4 C L 75 19 183/118 H 91
[2018-12-17] MEDS ORDERED: predniSONE 10 MG TABLET PO ONE (17:30)
[2018-12-17] MEDS ORDERED: INSULIN GLARGINE SOLOSTAR 100 UNITS/ML 3 ML PEN SC STA (20:57)
[2018-12-18] MEDS: INSULIN ASPART 100 UNITS/ML 3 ML PEN SC SCH ×6 (00:27→20:10)
[2018-12-18] MEDS: LEVOTHYROXINE SODIUM 150 MCG TABLET PO SCH (05:06)
[2018-12-18 07:40] LABS: Basophils # (auto) 0.03 K/uL (0-0.2); Basophils % (auto) 0.5 %; Eosinophils # (auto) 0.06 K/uL (0-0.5); Eosinophils % (auto) 1.1 %; Hemoglobin 10.6 g/dL (14.0-18.0); Immature Granulocytes % (auto) 3.6 %; Lymphocytes # (auto) 1.43 K/uL (1.2-3.4); Lymphocytes % (auto) 25.4 %; Mean Corpuscular Hgb Conc 32.1 g/dL (32-36); Mean Platelet Volume 9.2 fL (7.4-10.4); Monocytes # (auto) 0.56 K/uL (0.11-0.59); Monocytes % (auto) 9.9 %; Neutrophils # (auto) 3.35 K/uL (1.4-6.5); Neutrophils % (auto) 59.5 %; Nucleated RBC # (auto) 0.07 K/uL (0-0); Nucleated RBC % (auto) 1.3 %; Platelet Count 108 K/uL (130-400); RDW Coefficient of Variation 17.5 % (11.5-14.5); RDW Standard Deviation 58.8 fL (36.4-46.3); Red Blood Count 3.51 M/uL (4.7-6.1); White Blood Count 5.63 K/uL (4.8-10.8)
[2018-12-18 08:07] LABS: BUN Creatinine Ratio 23.1 (10-20); Calcium 10.1 mg/dl (8.5-10.1); Creatinine Clr Calc Pharmacy 88.3 ml/min; Est GFR (African American) 84.3; Est GFR (Non-African American) 72.8; Magnesium 2.1 mg/dl (1.8-2.4); Potassium 4.1 mmol/L (3.5-5.1)
[2018-12-18] MEDS: levoFLOXacin 750 MG TAB PO SCH (09:11)
[2018-12-18] MEDS: CALCIUM 600MG + VIT D 400 IU TAB PO SCH (09:11)
[2018-12-18] MEDS: predniSONE 5 MG TAB PO SCH (09:11)
[2018-12-18] MEDS: CYANOCOBALAMIN 500 MCG TABLET (VITAMIN B-12) PO SCH (09:11)
[2018-12-18] MEDS: IMIPRAMINE HCL 25 MG TAB PO SCH ×3 (09:11→20:09)
[2018-12-18] MEDS: MULTIVITAMIN TAB PO SCH (09:11)
[2018-12-18] MEDS: DULOXETINE HCL 60 MG CAP PO SCH (09:11)
[2018-12-18] MEDS: MAGNESIUM OXIDE 400 MG TAB PO SCH ×2 (09:12→20:09)
[2018-12-18] MEDS: AMLODIPINE BESYLATE 5 MG TAB PO SCH (09:12)
[2018-12-18] MEDS: DIVALPROEX DELAY RELEASE 500 MG TAB PO SCH ×2 (09:12→20:09)
[2018-12-18] MEDS: risperiDONE 1 MG TABLET PO SCH ×2 (09:12→20:09)
[2018-12-18] MEDS ORDERED: INSULIN GLARGINE SOLOSTAR 100 UNITS/ML 3 ML PEN SC STA (12:33)
--- NOTE | 2018-12-18 14:29 | Pharmacy Report ---
Pharmacy Glycemic Short Note 2 - Date of Service December 18, 2018 - Glycemic Short BSG Results (Last 24 hours): 12/17/18 12/17/18 12/18/18 16:17 20:21 00:24 Glucose POC Glucose 115 H 220 H 224 H 12/18/18 12/18/18 12/18/18 04:26 07:18 07:38 Glucose 99 POC Glucose 129 H 93 12/18/18 11:34 Glucose POC Glucose 208 H OUTPATIENT ANTIDIABETIC REGIMEN: * None * A1c 5.9% on 11/28/18 ASSESSMENT: 12/18/18: * Patient's BSGs spiked last evening after receiving 10mg of Prednisone. He is now ordered his outpatient dose of Prednisone 5mg daily. * Patient was ordered 5 units of Lantus today and carb ratio added back to Novolog to provide prandial coverage. 12/17/18 * BSGs have been reasonably well-controlled for the past 24 hours. * IV hydrocortisone was discontinued this morning, which is expected to resolve patient's hyperglycemia. * Will continue Novolog for correction ONLY for now and modify regimen as needed. Expect that patient may not require any insulin without any steroids ordered. 12/16/18 * Patient became hyperglycemic last evening requiring an insulin infusion (per ICU protocol) which was turned off this morning. Will continue with an increased daily dose of Lantus, and discontinue when Hydrocortisone is discontinued (currently hct 50mg q8). I am hesitant to increase insulin doses too much as patient has been very labile with BSGs and insulin requirements. Lunch BSG elevated but acceptable at 198 mg/dL. If BSG continues to rise this evening may consider tightening NovoLog scale further and/or adding an extra 5 units of lantus @ 2100. I will also add overnight NovoLog checks. * Continue tighten CF and CR at this time while on IV steroids. PLAN FOR INPATIENT GLYCEMIC CONTROL: * Basal insulin * Lantus 5 units x1 dose today * Bolus insulin * NovoLog per scale ACHS * Goal Range: Low 110 mg/dL - High 140 mg/dL * Correction Factor: 20 mg/dL/unit * Nutritional / Prandial insulin: 1 unit per 7 gm CHO consumed PLAN FOR DISCHARGE: * A1c = 5.9%; this is in the pre-diabetic range * Consider lifestyle modifications and/or addition of metformin to slow progression to diabetes
[2018-12-18] MEDS: CARVEDILOL 12.5 MG TAB PO SCH ×2 (17:00→23:10)
--- NOTE | 2018-12-18 17:41 | Hospitalist Progress Note ---
Date of Service December 18, 2018 Assessment & Plan (1) Severe sepsis: Secondary to E. coli UTI, bacteremia Associated with acute on chronic kidney failure, episode of hypotension/bradycardia Required ICU transfer Patient recovered well, stable vitals Transferred out of ICU yesterday 12/17/2018 hypotension, bradycardia resolved Urine culture: Positive for E. coli, ESBL Blood Cultures: E coli, Staph coag neg Appreciate input from ID, Antibiotic changed to p.o. Levaquin, will need total 2 weeks of treatment from the negative culture growth Patient received hydrocortisone stress dose -while in ICU, BP [id number] antihypertensive meds resumed Prednisone p.o. taper down, continue on 5 mg p.o. daily chronic dose (2) UTI (urinary tract infection): Management as noted above ESBL E. coli, on p.o. Levaquin (3) Nonsustained ventricular tachycardia: Coreg 12.5 mg p.o. daily resumed Echo shows no wall motion abnormality Continue on telemetry while on beta-merlene We will monitor electrolytes, keep potassium above 4, mag above 2 (4) Hypertension: Hypertensive at present Home medication Coreg 12.5 mg twice daily, and amlodipine 10 mg resumed (5) Acute renal failure superimposed on stage 3 chronic kidney disease: Likely from hypotension, sepsis Improved with IV fluid (6) Acute metabolic encephalopathy: Resolved Awake and alert conversing appropriately, Developed in the setting of pancreatitis, pneumonia, possible adrenal insufficiency Subclinical hypothyroidism contributing? TSH 10.4, free T4 1.39 Increased levothyroxine from 125 to 150 mcg daily repeat thyroid function tests in 4 to 6 weeks Anemia Multifactorial and most likely due to ongoing infection and poor nutrition No acute blood loss Given 2 units of packed RBCs HGlobin 9.2, stable so far for the past few days No signs of active bleeding (7) Small bowel obstruction: Resolved with conservative management Diet advanced tolerating well Has had diarrhea C. difficile toxin has been negative but C. difficile gene has been positive Discussed with ID Not infectious and does not require any treatment Diarrhea resolved (8) Pancreatitis: Presented with abdominal pain and nausea CT scan did show:CT abdomen pelvis revealed acute pancreatitis, trace pleural effusion and trace abdominal pelvic ascites, gallbladder sludge, diverticulosis recovered well with bowel rest IV fluids Lipase normalized Resolved-diet advanced tolerating well Patient's CT abdomen showing gallbladder sludge GI consulted, recommend eventual cholecystectomy to prevent recurrence of pancreatitis (9) Pneumonia: Chest x-ray concerning for left basilar opacity and pleural effusion possibly consistent with pneumonia Urinalysis does have positive leukoesterase and nitrites, but negative bacteria -Per patient's sister he has history of UTI which presents as confusion Patient does not meet Sepsis Criteria Abd U/S Limited to RUQ to r/o gall bladder pathology as etiology of pancreatitis - currently unknown no ETOH or NSAID obtain NH3, blood cultures: Negative Continue p.o. Levaquin (10) Hyperglycemia: New diagnosis, patient not on oral DM meds or insulin at home Blood glucose running in the 300s A1c 5.9 Possibly from pancreatitis? Glycemic control by pharmacist consulted-patient input Insulin Lantus and sliding scale aspart started Continue to monitor (11) Electrolyte abnormality: Replaced, follow lites (12) Hypothyroidism: Continue levothyroxine (13) Bipolar disorder: Depakote reduced from 1000 twice daily to 500 mg twice daily per patient's sister's request Seems to be tolerating reduced dose so far Continue Risperidone (14) Thrombocytopenia: Platelet count stable 60k Chronically runs between 60 and 100 Had peripheral smear done in admission 04/2018 which was unrevealing Thrombocytopenia worsens with infection no signs of bleeding Lovenox on hold (15) Leg edema, right: Not on any coagulation for DVT prophylaxis secondary to thrombocytopenia, possible procedures No DVT by ultrasound (16) DVT prophylaxis: SCDS/TEDS HOLD Lovenox for low plt Disposition Will need rehab, significant deconditioning after prolonged hospital stay Referral made to [facility] Plan to transfer to rehab in next 24 to 48 hours if patient remains medically stable Subjective Patient found sitting on chair, awake and alert, wants to know when he can be discharged Says"I feel fine" Denies of any shortness of breath, no dizzy spell lightheadedness, no palpitation Has been afebrile with stable vitals Review of Systems Review of Systems: All systems reviewed & are unremarkable except as noted in HPI & below Physical Exam Constitutional: WD/WN, vitals as above + ill appearing and + obese; no acute distress Eyes: PERRL, conjunctivae normal, anicteric sclerae ENMT: external ear and nose normal, oropharynx normal Neck: trachea midline, no thyromegaly Respiratory: normal respiratory effort; no respiratory distress, no labored breathing and no cough Cardiovascular: Rate/Rhythm: regular rate and regular rhythm Extremities: + pedal edema +3 bilateral pedal edema chronic Gastrointestinal (Abdomen): Inspection/Auscultation: + abdomen distended and normal bowel sounds Percussion/Palpation: abdomen soft; abdomen nontender Musculoskeletal: Multiple skin tear in both upper and lower extremity, generalized weakness Skin: Trauma: + evidence of skin trauma (Multiple skin tears in both upper and lower extremity) Neurologic: PERRL, EOMI, accommodation nl, no face palsy, no dysarthria Psychiatric: A+Ox3, euthymic affect Results & Data Vital Signs (Past 12 Hours) Vital Signs Temp Pulse Pulse Resp BP BP BP 12/18/18 16:00 94 H 12/18/18 15:44 36.9 C 85 18 151/88 H 12/18/18 13:57 137/88 12/18/18 11:30 36.6 C 94 H 16 123/101 H 12/18/18 09:58 133/87 12/18/18 08:00 65 12/18/18 07:19 36.9 C 64 19 151/121 H Pulse Ox 12/18/18 16:00 12/18/18 15:44 93 12/18/18 13:57 12/18/18 11:30 12/18/18 09:58 12/18/18 08:00 12/18/18 07:19 99
[2018-12-19] MEDS: LEVOTHYROXINE SODIUM 150 MCG TABLET PO SCH (06:09)
[2018-12-19 07:03] LABS: BUN Creatinine Ratio 21.9 (10-20); Calcium 9.8 mg/dl (8.5-10.1); Creatinine Clr Calc Pharmacy 79.4 ml/min; Est GFR (African American) 74.7; Est GFR (Non-African American) 64.4; Potassium 4.2 mmol/L (3.5-5.1)
[2018-12-19] MEDS: DULOXETINE HCL 60 MG CAP PO SCH (08:39)
[2018-12-19] MEDS: AMLODIPINE BESYLATE 5 MG TAB PO SCH (08:39)
[2018-12-19] MEDS: CALCIUM 600MG + VIT D 400 IU TAB PO SCH (08:39)
[2018-12-19] MEDS: CARVEDILOL 12.5 MG TAB PO SCH ×2 (08:40→20:50)
[2018-12-19] MEDS: CYANOCOBALAMIN 500 MCG TABLET (VITAMIN B-12) PO SCH (08:40)
[2018-12-19] MEDS: levoFLOXacin 750 MG TAB PO SCH (08:40)
[2018-12-19] MEDS: MULTIVITAMIN TAB PO SCH (08:40)
[2018-12-19] MEDS: MAGNESIUM OXIDE 400 MG TAB PO SCH ×2 (08:40→20:47)
[2018-12-19] MEDS: predniSONE 5 MG TAB PO SCH (08:40)
[2018-12-19] MEDS: risperiDONE 1 MG TABLET PO SCH ×2 (08:40→20:47)
[2018-12-19] MEDS: IMIPRAMINE HCL 25 MG TAB PO SCH ×3 (08:40→20:47)
[2018-12-19] MEDS: DIVALPROEX DELAY RELEASE 500 MG TAB PO SCH ×2 (08:41→20:47)
[2018-12-19] MEDS: INSULIN ASPART 100 UNITS/ML 3 ML PEN SC SCH ×4 (08:42→20:52)
--- NOTE | 2018-12-19 09:25 | Pharmacy Report ---
Pharmacy Glycemic Short Note 2 - Date of Service December 19, 2018 - Glycemic Short BSG Results (Last 24 hours): 12/18/18 12/18/18 12/18/18 11:34 16:39 20:06 Glucose POC Glucose 208 H 164 H 117 H 12/19/18 12/19/18 06:19 07:04 Glucose 86 POC Glucose 83 OUTPATIENT ANTIDIABETIC REGIMEN: * None * A1c 5.9% on 11/28/18 ASSESSMENT: * Patient has received 22 units of insulin over the past 24hrs * 5 units of basal with Lantus * 17 units of prandial/correctional with NovoLog * AM fasting BSG is below goal range for inpatient targets at 83mg/dl --> likely patient dose not need basal insulin (while not on RTC steroids) based on A1c of 5.9%. Will stop basal insulin * Patient has resumed his outpatient dosing of prednisone 5mg PO daily. Steroids have their most profound effect on post-prandial hyperglycemia. CHO coverage will be needed. Typically, once daily NPH is given at the same time as the prednisone since the kinetcs of NPH match that of the hyperglycemic effects of once daily prednisone. However, since prednisone dose is so small- will continue with [facility] NovoLog. PLAN FOR INPATIENT GLYCEMIC CONTROL: * Basal insulin * Hold for now * Bolus insulin * NovoLog per scale [facility] * Goal Range: Low 110 mg/dL - High 140 mg/dL * Correction Factor: 20 mg/dL/unit * Nutritional / Prandial insulin: 1 unit per 7 gm CHO consumed PLAN FOR DISCHARGE: * A1c = 5.9%; this is in the pre-diabetic range * Consider lifestyle modifications and/or addition of metformin to slow progression to diabetes
--- NOTE | 2018-12-19 18:13 | Hospitalist Progress Note ---
Date of Service December 19, 2018 Assessment & Plan (1) Severe sepsis: Resolved, vitals stable, tolerating antibiotic okay Secondary to E. coli UTI, bacteremia Associated with acute on chronic kidney failure, episode of hypotension/bradycardia Required ICU transfer Patient recovered well, stable vitals Transferred out of ICU 12/17/2018 hypotension, bradycardia resolved Urine culture: Positive for E. coli, ESBL Blood Cultures: E coli, Staph coag neg Appreciate input from ID, Antibiotic changed to p.o. Levaquin, will need total 2 weeks of treatment from the negative culture growth Patient received hydrocortisone stress dose -while in ICU, BP [id number] antihypertensive meds resumed Prednisone p.o. taper down, continued on 5 mg p.o. daily chronic dose No hypotension or bradycardia noted (2) UTI (urinary tract infection): Management as noted above ESBL E. coli, on p.o. Levaquin (3) Nonsustained ventricular tachycardia: Coreg 12.5 mg p.o. daily resumed No further episode after resuming beta-merlene Echo shows no wall motion abnormality (4) Hypertension: Was hypotensive due to sepsis was in ICU All antihypertensives were kept on hold Present vitals improve hypertensive episodes noted Coreg 12.5 mg twice daily, resumed Blood pressure better controlled after restarting antihypertensives (5) Acute renal failure superimposed on stage 3 chronic kidney disease: Likely from hypotension, sepsis Received IV fluids Resolved creatinine function improved to baseline (6) Acute metabolic encephalopathy: Resolved Awake and alert conversing appropriately, Developed in the setting of pancreatitis, pneumonia, possible adrenal insufficiency Subclinical hypothyroidism contributing? TSH 10.4, free T4 1.39 Increased levothyroxine from 125 to 150 mcg daily repeat thyroid function tests in 4 to 6 weeks Anemia Multifactorial and most likely due to ongoing infection and poor nutrition No acute blood loss Given 2 units of packed RBCs HGlobin 9.2, stable so far for the past few days No signs of active bleeding (7) Small bowel obstruction: Resolved with conservative management Diet advanced tolerating well Has had diarrhea C. difficile toxin has been negative but C. difficile gene has been positive Discussed with ID Not infectious and does not require any treatment Diarrhea resolved (8) Pancreatitis: Presented with abdominal pain and nausea CT scan did show:CT abdomen pelvis revealed acute pancreatitis, trace pleural effusion and trace abdominal pelvic ascites, gallbladder sludge, diverticulosis recovered well with bowel rest IV fluids Lipase normalized diet advanced tolerating well Patient's CT abdomen showing gallbladder sludge GI consulted, recommend eventual cholecystectomy to prevent recurrence of pancreatitis (9) Pneumonia: Chest x-ray concerning for left basilar opacity and pleural effusion possibly consistent with pneumonia Urinalysis does have positive leukoesterase and nitrites, but negative bacteria -Per patient's sister he has history of UTI which presents as confusion Patient does not meet Sepsis Criteria Abd U/S Limited to RUQ to r/o gall bladder pathology as etiology of pancreatitis - currently unknown no ETOH or NSAID obtain NH3, blood cultures: Negative Continue p.o. Levaquin (10) Hyperglycemia: New diagnosis, patient not on oral DM meds or insulin at home Blood glucose running in the 300s A1c 5.9 Possibly from pancreatitis? Glycemic control by pharmacist consulted-patient input Insulin Lantus and sliding scale aspart started Continue to monitor (11) Electrolyte abnormality: Replaced, follow electrolytes (12) Hypothyroidism: Continue levothyroxine (13) Bipolar disorder: Depakote reduced from 1000 twice daily to 500 mg twice daily per patient's sister's request Seems to be tolerating reduced dose so far Continue Risperidone (14) Thrombocytopenia: Platelet count stable 60k Chronically runs between 60 and 100 Had peripheral smear done in admission 04/2018 which was unrevealing Thrombocytopenia worsens with infection no signs of bleeding Lovenox on hold (15) Leg edema, right: Not on any coagulation for DVT prophylaxis secondary to thrombocytopenia, possible procedures No DVT by ultrasound (16) DVT prophylaxis: SCDS/TEDS HOLD Lovenox for low plt Disposition Stable to be transferred to medical floor Will need rehab, significant deconditioning after prolonged hospital stay Referral made to dennise Philip Plan to transfer to rehab in next 24 to 48 hours if patient remains medically stable Subjective Offers no new complaint, feels fine, no shortness of breath no fever chills Vital stable Physical Exam Constitutional: WD/WN, vitals as above + obese; no acute distress Eyes: PERRL, conjunctivae normal, anicteric sclerae ENMT: external ear and nose normal, oropharynx normal Neck: trachea midline, no thyromegaly Respiratory: normal respiratory effort; no respiratory distress, no labored breathing and no cough Cardiovascular: Rate/Rhythm: regular rate and regular rhythm Extremities: + pedal edema Gastrointestinal (Abdomen): Inspection/Auscultation: + abdomen distended and normal bowel sounds Percussion/Palpation: abdomen soft; abdomen nontender Skin: Trauma: + evidence of skin trauma (Multiple skin tears in both upper and lower extremity) Neurologic: PERRL, EOMI, accommodation nl, no face palsy, no dysarthria Psychiatric: A+Ox3, euthymic affect Results & Data Vital Signs (Past 12 Hours) Vital Signs Temp Pulse Resp BP BP Pulse Ox 12/19/18 15:46 36.8 C 74 18 126/82 92 12/19/18 11:25 36.6 C 75 16 135/79 96 12/19/18 07:15 36.4 C L 65 16 143/97 H 98
[2018-12-20] MEDS: LEVOTHYROXINE SODIUM 150 MCG TABLET PO SCH (05:21)
[2018-12-20] MEDS: IMIPRAMINE HCL 25 MG TAB PO SCH ×3 (08:36→21:11)
[2018-12-20] MEDS: AMLODIPINE BESYLATE 5 MG TAB PO SCH (08:36)
[2018-12-20] MEDS: predniSONE 5 MG TAB PO SCH (08:36)
[2018-12-20] MEDS: risperiDONE 1 MG TABLET PO SCH ×2 (08:36→21:10)
[2018-12-20] MEDS: CYANOCOBALAMIN 500 MCG TABLET (VITAMIN B-12) PO SCH (08:36)
[2018-12-20] MEDS: CARVEDILOL 12.5 MG TAB PO SCH ×2 (08:37→21:11)
[2018-12-20] MEDS: DIVALPROEX DELAY RELEASE 500 MG TAB PO SCH ×2 (08:37→21:10)
[2018-12-20] MEDS: MULTIVITAMIN TAB PO SCH (08:37)
[2018-12-20] MEDS: MAGNESIUM OXIDE 400 MG TAB PO SCH ×2 (08:37→21:11)
[2018-12-20] MEDS: DULOXETINE HCL 60 MG CAP PO SCH (08:37)
[2018-12-20] MEDS: levoFLOXacin 750 MG TAB PO SCH (08:37)
[2018-12-20] MEDS: CALCIUM 600MG + VIT D 400 IU TAB PO SCH (08:37)
[2018-12-20] MEDS: INSULIN ASPART 100 UNITS/ML 3 ML PEN SC SCH ×4 (08:39→21:12)
--- NOTE | 2018-12-20 19:18 | Hospitalist Progress Note ---
Date of Service December 20, 2018 Assessment & Plan (1) Severe sepsis: Resolved, vitals stable, tolerating antibiotic okay Secondary to E. coli UTI, bacteremia Associated with acute on chronic kidney failure, episode of hypotension/bradycardia Required ICU transfer Patient recovered well, stable vitals Transferred out of ICU 12/17/2018 hypotension, bradycardia resolved Urine culture: Positive for E. coli, ESBL Blood Cultures: E coli, Staph coag neg Appreciate input from ID, Antibiotic changed to p.o. Levaquin, will need total 2 weeks of treatment from the negative culture growth Patient received hydrocortisone stress dose -while in ICU, BP [id number]-Izrb antihypertensive meds resumed Prednisone p.o. taper down, continued on 5 mg p.o. daily chronic dose No hypotension or bradycardia noted (2) UTI (urinary tract infection): Management as noted above ESBL E. coli, on p.o. Levaquin (3) Nonsustained ventricular tachycardia: Coreg 12.5 mg p.o. daily resumed No further episode after resuming beta-merlene Echo shows no wall motion abnormality (4) Hypertension: Was hypotensive due to sepsis was in ICU All antihypertensives were kept on hold Present vitals improve hypertensive episodes noted Coreg 12.5 mg twice daily, resumed Blood pressure better controlled after restarting antihypertensives (5) Acute renal failure superimposed on stage 3 chronic kidney disease: Likely from hypotension, sepsis Received IV fluids Resolved creatinine function improved to baseline (6) Acute metabolic encephalopathy: Resolved Awake and alert conversing appropriately, Developed in the setting of pancreatitis, pneumonia, possible adrenal insufficiency Subclinical hypothyroidism contributing? TSH 10.4, free T4 1.39 Increased levothyroxine from 125 to 150 mcg daily repeat thyroid function tests in 4 to 6 weeks Anemia Multifactorial and most likely due to ongoing infection and poor nutrition No acute blood loss Given 2 units of packed RBCs HGlobin 9.2, stable so far for the past few days No signs of active bleeding (7) Small bowel obstruction: Resolved with conservative management Diet advanced tolerating well Has had diarrhea C. difficile toxin has been negative but C. difficile gene has been positive Discussed with ID Not infectious and does not require any treatment Diarrhea resolved (8) Pancreatitis: Presented with abdominal pain and nausea CT scan did show:CT abdomen pelvis revealed acute pancreatitis, trace pleural effusion and trace abdominal pelvic ascites, gallbladder sludge, diverticulosis recovered well with bowel rest IV fluids Lipase normalized diet advanced tolerating well Patient's CT abdomen showing gallbladder sludge GI consulted, recommend eventual cholecystectomy to prevent recurrence of pancreatitis (9) Pneumonia: Chest x-ray concerning for left basilar opacity and pleural effusion possibly consistent with pneumonia Urinalysis does have positive leukoesterase and nitrites, but negative bacteria -Per patient's sister he has history of UTI which presents as confusion Patient does not meet Sepsis Criteria Abd U/S Limited to RUQ to r/o gall bladder pathology as etiology of pancreatitis - currently unknown no ETOH or NSAID obtain NH3, blood cultures: Negative Continue p.o. Levaquin (10) Hyperglycemia: New diagnosis, patient not on oral DM meds or insulin at home Blood glucose running in the 300s A1c 5.9 Possibly from pancreatitis? Glycemic control by pharmacist consulted-patient input Insulin Lantus and sliding scale aspart started Continue to monitor (11) Electrolyte abnormality: Replaced, follow electrolytes (12) Hypothyroidism: Continue levothyroxine (13) Bipolar disorder: Depakote reduced from 1000 twice daily to 500 mg twice daily per patient's sister's request Seems to be tolerating reduced dose so far Continue Risperidone (14) Thrombocytopenia: Platelet count stable 60k Chronically runs between 60 and 100 Had peripheral smear done in admission 04/2018 which was unrevealing Thrombocytopenia worsens with infection no signs of bleeding Lovenox on hold (15) Leg edema, right: Not on any coagulation for DVT prophylaxis secondary to thrombocytopenia, possible procedures No DVT by ultrasound (16) DVT prophylaxis: SCDS/TEDS HOLD Lovenox for low plt Disposition Stable to be transferred to medical floor Will need rehab, significant deconditioning after prolonged hospital stay Referral made to dennise Philip Plan to transfer to rehab in next 24 to 48 hours if patient remains medically stable Subjective Offers no new complaint, feels fine, no shortness of breath no fever chills Vital stable Physical Exam Constitutional: WD/WN, vitals as above + obese; no acute distress Eyes: PERRL, conjunctivae normal, anicteric sclerae ENMT: external ear and nose normal, oropharynx normal Neck: trachea midline, no thyromegaly Respiratory: normal respiratory effort; no respiratory distress, no labored breathing and no cough Cardiovascular: Rate/Rhythm: regular rate and regular rhythm Extremities: + pedal edema Gastrointestinal (Abdomen): Inspection/Auscultation: + abdomen distended and normal bowel sounds Percussion/Palpation: abdomen soft; abdomen nontender Skin: Trauma: + evidence of skin trauma (Multiple skin tears in both upper and lower extremity) Neurologic: PERRL, EOMI, accommodation nl, no face palsy, no dysarthria Psychiatric: A+Ox3, euthymic affect Results & Data Vital Signs (Past 12 Hours) Vital Signs Temp Pulse Pulse Resp BP Pulse Ox 12/20/18 15:10 36.6 C 71 20 109/65 95 12/20/18 07:50 36.3 C L 70 18 128/82 97
[2018-12-21] MEDS: LEVOTHYROXINE SODIUM 150 MCG TABLET PO SCH (05:59)
[2018-12-21 06:51] LABS: Creatinine Clr Calc Pharmacy 60.1 ml/min; Est GFR (African American) 53.4
[2018-12-21] MEDS: levoFLOXacin 750 MG TAB PO SCH (08:54)
[2018-12-21] MEDS: MAGNESIUM OXIDE 400 MG TAB PO SCH ×2 (08:54→21:59)
[2018-12-21] MEDS: CALCIUM 600MG + VIT D 400 IU TAB PO SCH (08:54)
[2018-12-21] MEDS: risperiDONE 1 MG TABLET PO SCH (08:54)
[2018-12-21] MEDS: predniSONE 5 MG TAB PO SCH (08:55)
[2018-12-21] MEDS: DIVALPROEX DELAY RELEASE 500 MG TAB PO SCH ×2 (08:55→21:59)
[2018-12-21] MEDS: IMIPRAMINE HCL 25 MG TAB PO SCH (08:55)
[2018-12-21] MEDS: MULTIVITAMIN TAB PO SCH (08:55)
[2018-12-21] MEDS: CYANOCOBALAMIN 500 MCG TABLET (VITAMIN B-12) PO SCH (08:56)
[2018-12-21] MEDS: CARVEDILOL 12.5 MG TAB PO SCH ×2 (08:58→21:59)
[2018-12-21] MEDS: AMLODIPINE BESYLATE 5 MG TAB PO SCH (08:59)
[2018-12-21] MEDS: DULOXETINE HCL 60 MG CAP PO SCH (08:59)
[2018-12-21] MEDS: INSULIN ASPART 100 UNITS/ML 3 ML PEN SC SCH ×4 (09:01→21:56)
--- NOTE | 2018-12-21 14:32 | Pharmacy Report ---
Glycemic Control Progress Note - Date of Service December 21, 2018 - Scope Glycemic Pharmacist consulted for glycemic control to write orders per [facility] inpatient glycemic control protocol. - Objective Accuchecks BSG(last 24 hours):: 12/20/18 12/20/18 12/21/18 17:10 20:35 08:22 POC Glucose 159 H 193 H 113 H 12/21/18 12:15 POC Glucose 133 H HbA1c:: Hemoglobin A1c 5.9 % (4.5-5.6) H 11/28/18 10:20 - Recent Pertinent Medications The patient is currently receiving: * Basal insulin: Lantus -- units every -- hours * Correctional Insulin: Novolog Correction per scale ACHS Goal Range: Low 110 mg/dL - High 140 mg/dL Correction Factor: 20 mg/dL/unit * Prandial insulin: Per carb ratio of 1 unit per 7 grams CHO consumed - Outpatient Anti-Diabetic Meds N/A - Assessment & Plan ASSESSMENT: * See progress note from 11/28/18 for more background info, in short: * Pt receiving SQ basal bolus insulin regimen for hyperglycemia secondary to baseline DM (outpatient regimen on hold), bacteremia on Levaquin, and on home steroids of prednisone 5 mg daily. * Patient is currently receiving an average of 25 units of insulin per day * 0 units of basal insulin * 25 units of prandial/correctional insulin * BSGs ranging 77 - 193 mg/dl over the past 24hrs * Changes needed to insulin regimen: * AM Fasting BSG = 113 mg/dl. This is in goal range for patient based on inpatient targets and co-morbidities. Therefore Basal insulin will continue to be held. * Post-prandial BSGs do trend upwards (secondary to steroid use) but evening peak has decreased with each evening. Continue to monitor. * Total daily dose = ~25 units. PLAN FOR INPATIENT GLYCEMIC CONTROL: * Continuing correction factor of 20 mg/dl/unit * Continuing carb ratio of 1 unit per 7 grams CHO consumed * Continuing goal range of Low 110 mg/dL - High 140 mg/dL RECOMMENDATIONS FOR DISCHARGE: * Patient's HbA1C is well controlled. Recommend monitoring as an outpatient with HbA1C every 3-6 months. * Please note that the plan above was derived based on current level of insulin resistance and hospital stress. These recommendations are appropriate for inpatient admission only. Plan of care upon discharge will need to be reassessed to avoid potential outpatient hypo/hyperglycemia. Thank you.
--- NOTE | 2018-12-21 19:30 | Hospitalist Progress Note ---
Date of Service December 21, 2018 Assessment & Plan (1) Severe sepsis: Resolved, vitals stable, tolerating antibiotic okay Secondary to E. coli UTI, bacteremia Associated with acute on chronic kidney failure, episode of hypotension/bradycardia Required ICU transfer Patient recovered well, stable vitals Transferred out of ICU 12/17/2018 hypotension, bradycardia resolved Urine culture: Positive for E. coli, ESBL Blood Cultures: E coli, Staph coag neg Appreciate input from ID, Antibiotic changed to p.o. Levaquin, will need total 2 weeks of treatment from the negative culture growth Patient received hydrocortisone stress dose -while in ICU, BP [id number] antihypertensive meds resumed Prednisone p.o. taper down, continued on 5 mg p.o. daily chronic dose No hypotension or bradycardia noted (2) UTI (urinary tract infection): Management as noted above ESBL E. coli, on p.o. Levaquin (3) Nonsustained ventricular tachycardia: Coreg 12.5 mg p.o. daily resumed No further episode after resuming beta-merlene Echo shows no wall motion abnormality (4) Hypertension: Was hypotensive due to sepsis was in ICU All antihypertensives were kept on hold Present vitals improve hypertensive episodes noted Coreg 12.5 mg twice daily, resumed Blood pressure better controlled after restarting antihypertensives (5) Acute renal failure superimposed on stage 3 chronic kidney disease: Likely from hypotension, sepsis Received IV fluids Resolved creatinine function improved to baseline (6) Acute metabolic encephalopathy: Resolved Awake and alert conversing appropriately, Developed in the setting of pancreatitis, pneumonia, possible adrenal insufficiency Subclinical hypothyroidism contributing? TSH 10.4, free T4 1.39 Increased levothyroxine from 125 to 150 mcg daily repeat thyroid function tests in 4 to 6 weeks Anemia Multifactorial and most likely due to ongoing infection and poor nutrition No acute blood loss Given 2 units of packed RBCs HGlobin 9.2, stable so far for the past few days No signs of active bleeding (7) Small bowel obstruction: Resolved with conservative management Diet advanced tolerating well Has had diarrhea C. difficile toxin has been negative but C. difficile gene has been positive Discussed with ID Not infectious and does not require any treatment Diarrhea resolved (8) Pancreatitis: Presented with abdominal pain and nausea CT scan did show:CT abdomen pelvis revealed acute pancreatitis, trace pleural effusion and trace abdominal pelvic ascites, gallbladder sludge, diverticulosis recovered well with bowel rest IV fluids Lipase normalized diet advanced tolerating well Patient's CT abdomen showing gallbladder sludge GI consulted, recommend eventual cholecystectomy to prevent recurrence of pancreatitis (9) Pneumonia: Chest x-ray concerning for left basilar opacity and pleural effusion possibly consistent with pneumonia Urinalysis does have positive leukoesterase and nitrites, but negative bacteria -Per patient's sister he has history of UTI which presents as confusion Patient does not meet Sepsis Criteria Abd U/S Limited to RUQ to r/o gall bladder pathology as etiology of pancreatitis - currently unknown no ETOH or NSAID obtain NH3, blood cultures: Negative Complete p.o. Levaquin total 10 days (10) Hyperglycemia: New diagnosis, patient not on oral DM meds or insulin at home Blood glucose running in the 300s A1c 5.9 Possibly from pancreatitis? Glycemic control by pharmacist consulted-patient input Insulin Lantus and sliding scale aspart started Continue to monitor (11) Electrolyte abnormality: Replaced, follow electrolytes (12) Hypothyroidism: Continue levothyroxine (13) Bipolar disorder: Depakote reduced from 1000 twice daily to 500 mg twice daily per patient's sister's request Seems to be tolerating reduced dose so far Continue Risperidone (14) Thrombocytopenia: Platelet count stable 60k Chronically runs between 60 and 100 Had peripheral smear done in admission 04/2018 which was unrevealing Thrombocytopenia worsens with infection no signs of bleeding Lovenox on hold (15) Leg edema, right: Not on any coagulation for DVT prophylaxis secondary to thrombocytopenia, possible procedures No DVT by ultrasound (16) DVT prophylaxis: SCDS/TEDS HOLD Lovenox for low plt Disposition Will need rehab, significant deconditioning after prolonged hospital stay Referral made to dennise Philip And to transfer to rehab possible Sunday Subjective Patient remained stable, fever chills Physical Exam Constitutional: WD/WN, vitals as above + obese; no acute distress Eyes: PERRL, conjunctivae normal, anicteric sclerae ENMT: external ear and nose normal, oropharynx normal Neck: trachea midline, no thyromegaly Respiratory: normal respiratory effort; no respiratory distress, no labored breathing and no cough Cardiovascular: Rate/Rhythm: regular rate and regular rhythm Extremities: + pedal edema Gastrointestinal (Abdomen): Inspection/Auscultation: + abdomen distended and normal bowel sounds Percussion/Palpation: abdomen soft; abdomen nontender Skin: Trauma: + evidence of skin trauma (Multiple skin tears in both upper and lower extremity) Neurologic: PERRL, EOMI, accommodation nl, no face palsy, no dysarthria Psychiatric: A+Ox3, euthymic affect Results & Data Vital Signs (Past 12 Hours) Vital Signs Temp Pulse Resp BP BP Pulse Ox 12/21/18 15:54 36.2 C L 60 17 112/67 99 12/21/18 07:50 36.4 C L 64 18 122/66 95
[2018-12-22] MEDS: LEVOTHYROXINE SODIUM 150 MCG TABLET PO SCH (05:41)
[2018-12-22 05:42] LABS: Hematocrit (blood only) 28.2 % (42-52); Hemoglobin 9.2 g/dL (14.0-18.0); Mean Corpuscular Hgb Conc 32.6 g/dL (32-36); Mean Corpuscular Volume 93.7 fL (80-100); Mean Platelet Volume 8.7 fL (7.4-10.4); Platelet Count 116 K/uL (130-400); RDW Coefficient of Variation 18.7 % (11.5-14.5); RDW Standard Deviation 61.1 fL (36.4-46.3); Red Blood Count 3.01 M/uL (4.7-6.1); White Blood Count 7.12 K/uL (4.8-10.8)
[2018-12-22] MEDS: INSULIN ASPART 100 UNITS/ML 3 ML PEN SC SCH ×4 (09:12→21:10)
[2018-12-22] MEDS: CARVEDILOL 12.5 MG TAB PO SCH ×2 (09:16→21:09)
[2018-12-22] MEDS: AMLODIPINE BESYLATE 5 MG TAB PO SCH (09:17)
[2018-12-22] MEDS: levoFLOXacin 750 MG TAB PO SCH (09:17)
[2018-12-22] MEDS: DIVALPROEX DELAY RELEASE 500 MG TAB PO SCH ×2 (09:17→21:09)
[2018-12-22] MEDS: predniSONE 5 MG TAB PO SCH (09:18)
[2018-12-22] MEDS: MAGNESIUM OXIDE 400 MG TAB PO SCH ×2 (09:18→21:09)
[2018-12-22] MEDS: MULTIVITAMIN TAB PO SCH (09:18)
--- NOTE | 2018-12-22 13:40 | Hospitalist Progress Note ---
Date of Service December 22, 2018 Assessment & Plan (1) Severe sepsis: Resolved, vitals stable, tolerating antibiotic okay Secondary to E. coli UTI, bacteremia Associated with acute on chronic kidney failure, episode of hypotension/bradycardia Required ICU transfer Patient recovered well, stable vitals Transferred out of ICU 12/17/2018 hypotension, bradycardia resolved Urine culture: Positive for E. coli, ESBL Blood Cultures: E coli, Staph coag neg Appreciate input from ID, Antibiotic changed to p.o. Levaquin, will need total 2 weeks of treatment from the negative culture growth Patient received hydrocortisone stress dose -while in ICU, BP [id number] antihypertensive meds resumed Prednisone p.o. taper down, continued on 5 mg p.o. daily chronic dose No hypotension or bradycardia noted (2) UTI (urinary tract infection): Management as noted above ESBL E. coli, on p.o. Levaquin (3) Nonsustained ventricular tachycardia: Coreg 12.5 mg p.o. daily resumed No further episode after resuming beta-merlene Echo shows no wall motion abnormality (4) Hypertension: Was hypotensive due to sepsis was in ICU All antihypertensives were kept on hold Present vitals improve hypertensive episodes noted Coreg 12.5 mg twice daily, resumed Blood pressure better controlled after restarting antihypertensives (5) Acute renal failure superimposed on stage 3 chronic kidney disease: Likely from hypotension, sepsis Received IV fluids Resolved creatinine function improved to baseline (6) Acute metabolic encephalopathy: Resolved Awake and alert conversing appropriately, Developed in the setting of pancreatitis, pneumonia, possible adrenal insufficiency Subclinical hypothyroidism contributing? TSH 10.4, free T4 1.39 Increased levothyroxine from 125 to 150 mcg daily repeat thyroid function tests in 4 to 6 weeks Anemia Multifactorial and most likely due to ongoing infection and poor nutrition No acute blood loss Given 2 units of packed RBCs HGlobin 9.2, stable so far for the past few days No signs of active bleeding (7) Small bowel obstruction: Resolved with conservative management Diet advanced tolerating well Has had diarrhea C. difficile toxin has been negative but C. difficile gene has been positive Discussed with ID Not infectious and does not require any treatment Diarrhea resolved (8) Pancreatitis: Presented with abdominal pain and nausea CT scan did show:CT abdomen pelvis revealed acute pancreatitis, trace pleural effusion and trace abdominal pelvic ascites, gallbladder sludge, diverticulosis recovered well with bowel rest IV fluids Lipase normalized diet advanced tolerating well Patient's CT abdomen showing gallbladder sludge GI consulted, recommend eventual cholecystectomy to prevent recurrence of pancreatitis (9) Pneumonia: Chest x-ray concerning for left basilar opacity and pleural effusion possibly consistent with pneumonia Urinalysis does have positive leukoesterase and nitrites, but negative bacteria -Per patient's sister he has history of UTI which presents as confusion Patient does not meet Sepsis Criteria Abd U/S Limited to RUQ to r/o gall bladder pathology as etiology of pancreatitis - currently unknown no ETOH or NSAID obtain NH3, blood cultures: Negative Complete p.o. Levaquin total 10 days (10) Hyperglycemia: New diagnosis, patient not on oral DM meds or insulin at home Blood glucose running in the 300s A1c 5.9 Possibly from pancreatitis? Glycemic control by pharmacist consulted-patient input Insulin Lantus and sliding scale aspart started Continue to monitor (11) Electrolyte abnormality: Replaced, follow electrolytes (12) Hypothyroidism: Continue levothyroxine (13) Bipolar disorder: Depakote reduced from 1000 twice daily to 500 mg twice daily per patient's sister's request Seems to be tolerating reduced dose so far Continue Risperidone (14) Thrombocytopenia: Platelet count stable 60k Chronically runs between 60 and 100 Had peripheral smear done in admission 04/2018 which was unrevealing Thrombocytopenia worsens with infection no signs of bleeding Lovenox on hold (15) Leg edema, right: Not on any coagulation for DVT prophylaxis secondary to thrombocytopenia, possible procedures No DVT by ultrasound (16) DVT prophylaxis: SCDS/TEDS HOLD Lovenox for low plt Disposition Will need rehab, significant deconditioning after prolonged hospital stay Referral made to [facility] And to transfer to rehab possible Sunday Subjective Feels fine, offers no complaints, no cough no shortness of breath no fever chills vital stable Physical Exam Constitutional: WD/WN, vitals as above + obese; no acute distress Eyes: PERRL, conjunctivae normal, anicteric sclerae ENMT: external ear and nose normal, oropharynx normal Neck: trachea midline, no thyromegaly Respiratory: normal respiratory effort; no respiratory distress, no labored breathing and no cough Cardiovascular: Rate/Rhythm: regular rate and regular rhythm Extremities: + pedal edema Gastrointestinal (Abdomen): Inspection/Auscultation: + abdomen distended and normal bowel sounds Percussion/Palpation: abdomen soft; abdomen nontender Skin: Trauma: + evidence of skin trauma (Multiple skin tears in both upper and lower extremity) Neurologic: PERRL, EOMI, accommodation nl, no face palsy, no dysarthria Psychiatric: A+Ox3, euthymic affect Results & Data Vital Signs (Past 12 Hours) Vital Signs Temp Pulse Resp BP Pulse Ox 12/22/18 08:02 36.6 C 70 18 118/66 97
[2018-12-23] MEDS: LEVOTHYROXINE SODIUM 150 MCG TABLET PO SCH (05:19)
[2018-12-23 07:46] LABS: Creatinine Clr Calc Pharmacy 50.4 ml/min; Est GFR (African American) 43.1; Est GFR (Non-African American) 37.2
[2018-12-23] MEDS: levoFLOXacin 750 MG TAB PO SCH (08:59)
[2018-12-23] MEDS: CARVEDILOL 12.5 MG TAB PO SCH ×2 (08:59→21:40)
[2018-12-23] MEDS: DIVALPROEX DELAY RELEASE 500 MG TAB PO SCH ×2 (08:59→21:40)
[2018-12-23] MEDS: MAGNESIUM OXIDE 400 MG TAB PO SCH ×2 (08:59→21:40)
[2018-12-23] MEDS: predniSONE 5 MG TAB PO SCH (09:00)
[2018-12-23] MEDS: MULTIVITAMIN TAB PO SCH (09:00)
[2018-12-23] MEDS: AMLODIPINE BESYLATE 5 MG TAB PO SCH (09:00)
[2018-12-23] MEDS: INSULIN ASPART 100 UNITS/ML 3 ML PEN SC SCH ×4 (09:03→21:40)
--- NOTE | 2018-12-23 17:53 | Hospitalist Progress Note ---
Date of Service December 23, 2018 Assessment & Plan (1) Severe sepsis: Resolved, vitals stable, tolerating antibiotic okay Secondary to E. coli UTI, bacteremia Associated with acute on chronic kidney failure, episode of hypotension/bradycardia Required ICU transfer Patient recovered well, stable vitals Transferred out of ICU 12/17/2018 hypotension, bradycardia resolved Urine culture: Positive for E. coli, ESBL Blood Cultures: E coli, Staph coag neg Patient has been stable in medical floor Appreciate input from ID, Antibiotic changed to p.o. Levaquin, will need total 2 weeks of treatment from the negative culture growth Patient received hydrocortisone stress dose -while in ICU, BP [id number] antihypertensive meds resumed Prednisone p.o. taper down, continued on 5 mg p.o. daily chronic dose No hypotension or bradycardia noted Waiting to be transferred to skilled rehab (2) UTI (urinary tract infection): Management as noted above ESBL E. coli, on p.o. Levaquin (3) Nonsustained ventricular tachycardia: Coreg 12.5 mg p.o. daily resumed No further episode after resuming beta-merlene Echo shows no wall motion abnormality (4) Hypertension: Was hypotensive due to sepsis was in ICU All antihypertensives were kept on hold Present vitals improve hypertensive episodes noted Coreg 12.5 mg twice daily, resumed Blood pressure better controlled after restarting antihypertensives (5) Acute renal failure superimposed on stage 3 chronic kidney disease: Likely from hypotension, sepsis Received IV fluids Resolved creatinine function improved to baseline (6) Acute metabolic encephalopathy: Resolved Awake and alert conversing appropriately, Developed in the setting of pancreatitis, pneumonia, possible adrenal insufficiency Subclinical hypothyroidism contributing? TSH 10.4, free T4 1.39 Increased levothyroxine from 125 to 150 mcg daily repeat thyroid function tests in 4 to 6 weeks Anemia Multifactorial and most likely due to ongoing infection and poor nutrition No acute blood loss Given 2 units of packed RBCs HGlobin 9.2, stable so far for the past few days No signs of active bleeding (7) Small bowel obstruction: Resolved with conservative management Diet advanced tolerating well Has had diarrhea C. difficile toxin has been negative but C. difficile gene has been positive Discussed with ID Not infectious and does not require any treatment Diarrhea resolved (8) Pancreatitis: Presented with abdominal pain and nausea CT scan did show:CT abdomen pelvis revealed acute pancreatitis, trace pleural effusion and trace abdominal pelvic ascites, gallbladder sludge, diverticulosis recovered well with bowel rest IV fluids Lipase normalized diet advanced tolerating well Patient's CT abdomen showing gallbladder sludge GI consulted, recommend eventual cholecystectomy to prevent recurrence of pancreatitis (9) Pneumonia: Chest x-ray concerning for left basilar opacity and pleural effusion possibly consistent with pneumonia Urinalysis does have positive leukoesterase and nitrites, but negative bacteria -Per patient's sister he has history of UTI which presents as confusion Patient does not meet Sepsis Criteria Abd U/S Limited to RUQ to r/o gall bladder pathology as etiology of pancreatitis - currently unknown no ETOH or NSAID obtain NH3, blood cultures: Negative Complete p.o. Levaquin total 10 days (10) Hyperglycemia: New diagnosis, patient not on oral DM meds or insulin at home Blood glucose running in the 300s A1c 5.9 Possibly from pancreatitis? Glycemic control by pharmacist consulted-patient input Insulin Lantus and sliding scale aspart started Continue to monitor (11) Electrolyte abnormality: Replaced, follow electrolytes (12) Hypothyroidism: Continue levothyroxine (13) Bipolar disorder: Depakote reduced from 1000 twice daily to 500 mg twice daily per patient's sister's request Seems to be tolerating reduced dose so far Continue Risperidone (14) Thrombocytopenia: Platelet count stable 60k Chronically runs between 60 and 100 Had peripheral smear done in admission 04/2018 which was unrevealing Thrombocytopenia worsens with infection no signs of bleeding Lovenox on hold (15) Leg edema, right: Not on any coagulation for DVT prophylaxis secondary to thrombocytopenia, possible procedures No DVT by ultrasound (16) DVT prophylaxis: SCDS/TEDS HOLD Lovenox for low plt Disposition Will need rehab, significant deconditioning after prolonged hospital stay Referral made to [facility] No bed available, Patient is clinically stable to be transferred to rehab when bed available Subjective Patient offers no new complaint, comfortable, awaiting placement to skilled rehab, no fever chills no shortness of breath Physical Exam Constitutional: WD/WN, vitals as above + obese; no acute distress Eyes: PERRL, conjunctivae normal, anicteric sclerae ENMT: external ear and nose normal, oropharynx normal Neck: trachea midline, no thyromegaly Respiratory: normal respiratory effort; no respiratory distress, no labored breathing and no cough Cardiovascular: Rate/Rhythm: regular rate and regular rhythm Extremities: + pedal edema Gastrointestinal (Abdomen): Inspection/Auscultation: + abdomen distended and normal bowel sounds Percussion/Palpation: abdomen soft; abdomen nontender Skin: Trauma: + evidence of skin trauma (Multiple skin tears in both upper and lower extremity) Neurologic: PERRL, EOMI, accommodation nl, no face palsy, no dysarthria Psychiatric: A+Ox3, euthymic affect Results & Data Vital Signs (Past 12 Hours) Vital Signs Temp Pulse Resp BP BP Pulse Ox 12/23/18 15:23 36.6 C 65 19 103/64 95 12/23/18 07:26 61 18 108/68 97
[2018-12-24] MEDS: LEVOTHYROXINE SODIUM 150 MCG TABLET PO SCH (06:14)
[2018-12-24] MEDS: levoFLOXacin 750 MG TAB PO SCH (08:44)
[2018-12-24] MEDS: MAGNESIUM OXIDE 400 MG TAB PO SCH ×2 (08:45→20:50)
[2018-12-24] MEDS: MULTIVITAMIN TAB PO SCH (08:45)
[2018-12-24] MEDS: DIVALPROEX DELAY RELEASE 500 MG TAB PO SCH ×2 (08:45→20:50)
[2018-12-24] MEDS: predniSONE 5 MG TAB PO SCH (08:45)
[2018-12-24] MEDS: AMLODIPINE BESYLATE 5 MG TAB PO SCH (08:46)
[2018-12-24] MEDS: CARVEDILOL 12.5 MG TAB PO SCH ×2 (08:46→20:49)
[2018-12-24] MEDS: INSULIN ASPART 100 UNITS/ML 3 ML PEN SC SCH ×4 (09:25→20:40)
--- NOTE | 2018-12-24 11:00 | Pharmacy Report ---
Pharmacy Glycemic Sign Off Nt - Date of Service December 24, 2018 - Assessment & Plan ASSESSMENT: * Pharmacy was consulted by Dr Scott on 11/28/18 for glycemic control and to write orders per [facility] inpatient glycemic control protocol. * Major changes made by pharmacy to antidiabetic regimen include: * Initiating SQ basal bolus insulin regimen for steroid induced hyperglycemia * Insulin regimen now tapered since patient is back on outpatient dosing of prednisone 5mg PO daily * Patient has been receiving/requiring ~30 units of insulin per day for adequate glycemic control- all bolus insulin * BSGs ranging 111 - 179 mg/dl * Regimen has only required minor adjustments over the past 48hrs to achieve this level of control * Do not anticipate further changes in patient status that would quickly deteriorate glycemic control (i.e. patient to be NPO for upcoming procedure, steroids tapering, starting tube feedings, etc). PLAN FOR INPATIENT GLYCEMIC CONTROL: No changes needed to current regimen. * No basal insulin needed * Continue NovoLog per scale ACHS/Q6hrs while NPO * Goal range = 110 140 mg/dl * CF = 20 mg/dl/unit * CR = 1 unit for ever 7 g CHO consumed * Pharmacy is signing off of glycemic consult and will no longer be making adjustments to inpatient regimen. Please feel free to re-consult if needed. Thank you.
--- NOTE | 2018-12-24 18:24 | Hospitalist Progress Note ---
Date of Service December 24, 2018 Assessment & Plan (1) Severe sepsis: Resolved, vitals stable, tolerating antibiotic okay Secondary to E. coli UTI, bacteremia Associated with acute on chronic kidney failure, episode of hypotension/bradycardia Required ICU transfer Patient recovered well, stable vitals Transferred out of ICU 12/17/2018 hypotension, bradycardia resolved Urine culture: Positive for E. coli, ESBL Blood Cultures: E coli, Staph coag neg Patient has been stable in medical floor Appreciate input from ID, Antibiotic changed to p.o. 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 taper down, continued on 5 mg p.o. daily chronic dose No hypotension or bradycardia noted Waiting to be transferred to skilled rehab (2) UTI (urinary tract infection): Management as noted above ESBL E. coli, on p.o. Levaquin (3) Nonsustained ventricular tachycardia: Coreg 12.5 mg p.o. daily resumed No further episode after resuming beta-merlene Echo shows no wall motion abnormality (4) Hypertension: Was hypotensive due to sepsis was in ICU All antihypertensives were kept on hold Present vitals improve hypertensive episodes noted Coreg 12.5 mg twice daily, resumed Blood pressure better controlled after restarting antihypertensives (5) Acute renal failure superimposed on stage 3 chronic kidney disease: Likely from hypotension, sepsis Received IV fluids SHIELA -Resolved creatinine function improved to baseline (6) Acute metabolic encephalopathy: Resolved Awake and alert conversing appropriately, Developed in the setting of pancreatitis, pneumonia, possible adrenal insufficiency Subclinical hypothyroidism contributing? TSH 10.4, free T4 1.39 Increased levothyroxine from 125 to 150 mcg daily repeat thyroid function tests in 4 to 6 weeks Anemia Multifactorial and most likely due to ongoing infection and poor nutrition No acute blood loss Given 2 units of packed RBCs HGlobin 9.2, stable so far for the past few days No signs of active bleeding (7) Small bowel obstruction: Resolved with conservative management Diet advanced tolerating well Has had diarrhea C. difficile toxin has been negative but C. difficile gene has been positive Discussed with ID Not infectious and does not require any treatment Diarrhea resolved needs to be on Probiotics for 2 weeks while getting penitentiary abx ( Quinolone for total 14 days ) (8) Pancreatitis: Presented with abdominal pain and nausea CT scan did show:CT abdomen pelvis revealed acute pancreatitis, trace pleural effusion and trace abdominal pelvic ascites, gallbladder sludge, diverticulosis recovered well with bowel rest IV fluids Lipase normalized diet advanced tolerating well Patient's CT abdomen showing gallbladder sludge GI consulted, recommend eventual cholecystectomy to prevent recurrence of pancreatitis will need out pt follow up with GI after completion of rehab (9) Pneumonia: Chest x-ray concerning for left basilar opacity and pleural effusion possibly consistent with pneumonia treated with Abx Abd U/S Limited to RUQ to r/o gall bladder pathology as etiology of pancreatitis - currently unknown no ETOH or NSAID Blood culture negative growth on 12/15/18 Complete p.o. Levaquin total 14 days (10) Hyperglycemia: New diagnosis, patient not on oral DM meds or insulin at home Blood glucose running in the 300s A1c 5.9 Possibly from pancreatitis? Glycemic control by pharmacist consulted- appreciate input on Insulin Lantus and sliding scale aspart (11) Electrolyte abnormality: Replaced, follow electrolytes (12) Hypothyroidism: Continue levothyroxine (13) Bipolar disorder: Depakote was reduced from 1000 twice daily to 500 mg twice daily per patient's sister's request-as pt was found to be more sedated was very lethergic during acute illness symptom has resolve d at present alert awake and oriented today Sister called and voiced concern that pt may lapse into paranoid schozopherania requests Depakote dose resumed with Prior 1000mg BID dose adjusted Continue Risperidone (14) Thrombocytopenia: Platelet count stable 60k Chronically runs between 60 and 100 Had peripheral smear done in admission 04/2018 which was unrevealing Thrombocytopenia worsens with infection no signs of bleeding Lovenox on hold (15) Leg edema, right: Not on any coagulation for DVT prophylaxis secondary to thrombocytopenia, possible procedures No DVT by ultrasound (16) DVT prophylaxis: SCDS/TEDS HOLD Lovenox for low plt scd and teds Disposition Will need rehab, significant deconditioning after prolonged hospital stay Referral made to [facility] Possible transfer to [facility] today when bed available Patient's Sister Natalie Brandt phone number #[phone] Wants to be updated regarding the time of transfer when it is arranged tomorrow We will let the case management no Patient sister also wants to have a copy of the discharge instructions, she likes to keep track of patient's discharge meds Natalie voiced concern, in past the rehab changed all the discharge medication that was instructed on hospital discharge Patient had a worse outcome Patient sister is counseled, on transfer patient's full chart including discharge instructions get copied and sent to the rehab so the same care is continued Natalie is requesting one extra copy of discharge instructions to be sent with [facility], apart from the copy chart So she can pick it up when she goes to rehab as tomorrow as patient arrived Also sister is concerned about let us blood work Patient's prolonged hospital stay has been stable for the last few days daily blood work was not done Blood works were done on 12/22/2018 showed stable numbers Will order for CBC basic metabolic panel tomorrow Natalie requesting to get an update regarding the blood work results tomorrow before patient gets discharged Update Dr. Nick Haywood to contact patient's sister tomorrow morning prior to discharge to rehab As Dr. Haywood will take over patient's care starting from tomorrow 12/25/2018 Subjective Patient offers no new complaint, comfortable, awaiting placement to skilled rehab, no fever chills no shortness of breath Physical Exam Constitutional: WD/WN, vitals as above + obese; no acute distress Eyes: PERRL, conjunctivae normal, anicteric sclerae ENMT: external ear and nose normal, oropharynx normal Neck: trachea midline, no thyromegaly Respiratory: normal respiratory effort; no respiratory distress, no labored breathing and no cough Cardiovascular: Rate/Rhythm: regular rate and regular rhythm Extremities: + pedal edema Gastrointestinal (Abdomen): Inspection/Auscultation: + abdomen distended and normal bowel sounds Percussion/Palpation: abdomen soft; abdomen nontender Skin: Trauma: + evidence of skin trauma (Multiple skin tears in both upper and lower extremity) Neurologic: PERRL, EOMI, accommodation nl, no face palsy, no dysarthria Psychiatric: A+Ox3, euthymic affect Results & Data Vital Signs (Past 12 Hours) Vital Signs Temp Pulse Pulse Resp BP Pulse Ox 12/24/18 14:54 36.9 C 79 16 115/70 94 12/24/18 07:29 36.9 C 64 16 108/67 94
[2018-12-25] MEDS: LEVOTHYROXINE SODIUM 150 MCG TABLET PO SCH (05:12)
[2018-12-25 08:14] LABS: Hematocrit (blood only) 29.9 % (42-52); Hemoglobin 9.9 g/dL (14.0-18.0); Mean Corpuscular Hgb Conc 33.1 g/dL (32-36); Mean Corpuscular Volume 92.9 fL (80-100); Mean Platelet Volume 8.6 fL (7.4-10.4); Platelet Count 115 K/uL (130-400); RDW Coefficient of Variation 18.4 % (11.5-14.5); RDW Standard Deviation 61.1 fL (36.4-46.3); Red Blood Count 3.22 M/uL (4.7-6.1); White Blood Count 10.34 K/uL (4.8-10.8)
[2018-12-25 08:37] LABS: BUN Creatinine Ratio 18.5 (10-20); Creatinine Clr Calc Pharmacy 52.2 ml/min; Est GFR (Non-African American) 38.8; Magnesium 2.4 mg/dl (1.8-2.4); Phosphorus 3.4 mg/dl (2.5-4.9); Potassium 4.1 mmol/L (3.5-5.1)
[2018-12-25] MEDS: predniSONE 5 MG TAB PO SCH (09:15)
[2018-12-25] MEDS: DIVALPROEX DELAY RELEASE 500 MG TAB PO SCH (09:16)
[2018-12-25] MEDS: AMLODIPINE BESYLATE 5 MG TAB PO SCH (09:16)
[2018-12-25] MEDS: CARVEDILOL 12.5 MG TAB PO SCH (09:16)
[2018-12-25] MEDS: levoFLOXacin 750 MG TAB PO SCH (09:17)
[2018-12-25] MEDS: INSULIN ASPART 100 UNITS/ML 3 ML PEN SC SCH ×2 (09:19→12:54)
[2018-12-25] MEDS ORDERED: SODIUM CHLORIDE 0.9% 1000ML 250 ML IV ONE (10:02)
[2018-12-25] MEDS: MAGNESIUM OXIDE 400 MG TAB PO SCH (10:21)
--- NOTE | 2018-12-25 12:29 | Hospitalist Progress Note ---
Date of Service December 25, 2018 Assessment & Plan (1) Severe sepsis: secondary to E. coli UTI, bacteremia Associated with acute on chronic kidney failure, episode of hypotension/bradycardia Required ICU transfer Patient recovered well, stable vitals Transferred out of ICU 12/17/2018 hypotension, bradycardia resolved Urine culture: Positive for E. coli, ESBL Blood Cultures: E coli, Staph coag neg Patient has been stable in medical floor - on oral Levaquin treatment (2) UTI (urinary tract infection): ESBL E. coli, on p.o. Levaquin -Patient to continue probiotics/lactobacillus 3 times daily for 2 weeks while taking antibiotic to prevent diarrhea/antibiotic induced gastroenteritis (C. difficile). Last day of PO Levaquin is on 12/31 (3) Nonsustained ventricular tachycardia: -controlled bu Coreg 12.5 mg p.o. -Echo shows no wall motion abnormality (4) Hypertension: Bradycardia (improved), Hypotension (resolved), Hypertension (controlled with medications) (5) Acute renal failure superimposed on stage 3 chronic kidney disease: acute kidney injury (acute renal failure) with stabilized renal function -Discharge day Hgb of 9.9, platelets 115K, serum sodium 133, creatinine 1.9, serum magnesium 2.4 , serum phosphate 3.4 Patient should have follow up CBC, comprehensive metabolic panel, TSH, and free T4 checked in about 1 week from hospital discharge with primary care doctor (6) Acute metabolic encephalopathy: -Resolved Hypothyroidism -Patient had following abnormal labs of TSH 10.4, free T4 1.39 11/28/18; home dose levothyroxine was increased from 125mcg to 150 mcg daily during hospital stay, continue as 150 mcg daily -Discharge day Hgb of 9.9, platelets 115K, serum sodium 133, creatinine 1.9, serum magnesium 2.4 , serum phosphate 3.4 Patient should have follow up CBC, comprehensive metabolic panel, TSH, and free T4 checked in about 1 week from hospital discharge with primary care doctor Anemia -Multifactorial and most likely due to ongoing infection and poor nutrition No acute blood loss Given 2 units of packed RBCs during this hospital stay (7) Small bowel obstruction: -Resolved with conservative management -Has had diarrhea during hospital stay C. difficile toxin has been negative but C. difficile gene has been positive Discussed with ID Not infectious and does not require any treatment Diarrhea resolved (8) Pancreatitis: Presented with abdominal pain and nausea -had acute pancreatitis, trace pleural effusion and trace abdominal pelvic ascites, gallbladder sludge, diverticulosis -Patient's CT abdomen on 11/20/18 showing gallbladder sludge and at that time, gastroenterology was service was consulted and they did recommend eventual cholecystectomy to prevent recurrence of pancreatitis. However, no acute abdominal issues at time of discharge. Patient will need outpatient follow up with [facility] gastroenterology after completion of rehab -recovered well with bowel rest IV fluids; Lipase normalized -low fat diet on discharge (9) Pneumonia: admission Chest x-ray concerning for left basilar opacity and pleural effusion possibly consistent with pneumonia -treated with antibiotics, Blood culture negative growth on 12/15/18 -Patient to continue probiotics/lactobacillus 3 times daily for 2 weeks while taking antibiotic to prevent diarrhea/antibiotic induced gastroenteritis (C. difficile). Last day of PO Levaquin is on 12/31 (10) Hyperglycemia: Blood glucose running in the 300s initially A1c 5.9 initially hyperglycemia likely from sepsis and also chronic steroid use -glucose control improved in hospital stay -outpatient follow up (11) Electrolyte abnormality: -Discharge day Hgb of 9.9, platelets 115K, serum sodium 133, creatinine 1.9, serum magnesium 2.4 , serum phosphate 3.4 Patient should have follow up CBC, comprehensive metabolic panel, TSH, and free T4 checked in about 1 week from hospital discharge with primary care doctor Primary care doctor follow up 01/02/2019 3:00 PM Provider Don Watters MD Department Internal Medicine [facility] (12) Hypothyroidism: Continue levothyroxine (13) Bipolar disorder: Depakote and Risperidone (14) Thrombocytopenia: Chronically runs between 60 and 100 Had peripheral smear done in admission 04/2018 which was unrevealing -Discharge day Hgb of 9.9, platelets 115K, serum sodium 133, creatinine 1.9, serum magnesium 2.4 , serum phosphate 3.4 Patient should have follow up CBC, comprehensive metabolic panel, TSH, and free T4 checked in about 1 week from hospital discharge with primary care doctor Primary care doctor follow up 01/02/2019 3:00 PM Provider Don Watters MD Department Internal Medicine [facility] Other appointments 01/17/2019 10:20 AM Provider Jose Dugan MD Department Rheumatology [facility] 03/20/2019 11:50 AM Provider Juanita Duran MD Department Nephrology [facility] (15) Leg edema, right: Not on any coagulation for DVT prophylaxis secondary to thrombocytopenia No DVT by ultrasound leg edema has improved (16) DVT prophylaxis: SCDS/TEDS Discharge Diagnosis Severe sepsis Secondary to E. coli UTI and bacteremia, acute kidney injury (acute renal failure) with stabilized renal function, Bradycardia (improved), Hypotension (resolved), Hypertension (controlled with medications), initial pancreatitis resolved, Hypothyroidism, Anemia, Thrombocytopenia Discharge to [facility] for physical rehabilitation Subjective Patient seen and examined at bedside. No complaints of pain. no shortness of breath. breathing on room air. no abdomen pain. no vomiting. no problems with bowel movements or with urination. no lightheadedness. no dizziness Physical Exam Constitutional: WD/WN, vitals as above Eyes: PERRL, conjunctivae normal, anicteric sclerae EOM intact bilaterally ENMT: external ear and nose normal, oropharynx normal Neck: trachea midline, no thyromegaly normal visual inspection Respiratory: normal respiratory effort, lungs clear to auscultation Cardiovascular: RRR, no murmur, no edema Gastrointestinal (Abdomen): normal bowel sounds, soft, nontender, no hepatosplenomegaly Musculoskeletal: no cyanosis or clubbing, extremities motor strength 5/5 Neurologic: patellar DTR's 2+ bilat, sensation intact Psychiatric: A+Ox3, euthymic affect Results & Data Vital Signs (Past 12 Hours) Vital Signs Temp Pulse Resp BP Pulse Ox 12/25/18 07:36 36.6 C 77 16 123/82 99
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
[2018-12-25] MEDS ORDERED: LACTOBACILLUS ACIDOPHILUS 1 GM PACK PO SCH (17:00)
== END 2018-12-25 13:30 | DRG 871 ==
LOC: ED 12:02 → 2S 14:34 → SUATTDRO 14:34 → 2S 15:10 → 2W 11-28 17:48 → 1E 12-13 17:38 → 2E 12-16 16:10 → 3W 12-19 15:33

== ENCOUNTER 2019-02-13 16:36 | Inpatient (IN) ==
--- NOTE | 2019-02-13 16:48 | CT Scan Report ---
CT head/brain wo con CLINICAL HISTORY: Slurred speech. Suspected acute stroke. COMPARISON STUDY: MRI study dated 11/23/2018, CT scan of the head dated 11/20/2018 TECHNIQUE: Axial CT of the brain is performed from the vertex to the skull base. IV contrast was not administered for this examination. A dose lowering technique was utilized adhering to the principles of ALARA. CT DOSE: 1547.15 mGy.cm FINDINGS: No intra or extra-axial mass lesions are visualized. There is no CT evidence of acute cortical infarc tion. There is no evidence of midline shift. There is no acute hemorrhage. No calvarial fractures ar e visualized. There are minimal white matter hypodensities likely on a small vessel basis. Minor ventricular prominence is felt to be secondary to volume loss There is no evidence of acute sinusitis IMPRESSION: No acute intracranial findings Electronically signed by: Ruben Delgadillo M.D. 02/13/2019 4:46 PM
[2019-02-13] MEDS ORDERED: SODIUM CHLORIDE 0.9% 1000ML 1,000 ML IV ONE (17:29)
[2019-02-13] MEDS ORDERED: IMIPENEM/CILASTATIN SODIUM 500 MG in DEXTROSE 5% 100 ML IV STA (17:30)
[2019-02-13 17:55] LABS: Hematocrit (blood only) 33.8 % (42-52); Hemoglobin 10.7 g/dL (14.0-18.0); Mean Corpuscular Hemoglobin 30.7 pg (25-34); Mean Corpuscular Hgb Conc 31.7 g/dL (32-36); Mean Corpuscular Volume 96.8 fL (80-100); RDW Coefficient of Variation 18.1 % (11.5-14.5); RDW Standard Deviation 63.9 fL (36.4-46.3); Red Blood Count 3.49 M/uL (4.7-6.1); White Blood Count 4.36 K/uL (4.8-10.8)
--- NOTE | 2019-02-13 18:02 | XRay Report ---
XR chest 1V portable CLINICAL HISTORY: Altered level of consciousness. COMPARISON STUDY: 12/12/2018 FINDINGS: The heart is enlarged. There is mild central vascular prominence. There are low lung volume s. There is no lobar consolidation. There are no significant pleural effusions. Advanced chronic arth ritic changes about both shoulders with chronic subluxations.[ IMPRESSION: 1. Suboptimal inspiration 2. Mild cardiomegaly with suspected mild central pulmonary vascular congestion 3. No evidence of lobar consolidation Electronically signed by: Ruben Delgadillo M.D. 02/13/2019 6:01 PM
[2019-02-13 18:08] LABS: Appearance Urine Clear (Clear); Bacteria Urine Automated Negative (Negative); Bilirubin Urine Negative (Negative); Blood Urine Negative (Negative); Cast Urine Automated 0 /lpf (0-5); Color Urine Yellow; Epithelial Cell Urine Auto 0-5 /lpf (0-5); Glucose Urine UA Negative (Negative); Ketones Urine Negative (Negative); Leukocyte Esterase Urine Negative (Negative); Nitrite Urine Negative (Negative); Protein Urine 1+ (Negative); RBC Urine Automated 0-4 /hpf (0-4); Specific Gravity Urine 1.012 (1.000-1.030); Urobilinogen Urine Negative (Negative); WBC Urine Automated 0 /hpf (0-5); pH Urine 6.5 (4.5-7.5)
[2019-02-13 18:10] LABS: INR 1.1 (0.9-1.1); Partial Thromboplastin Ratio 1.1; Prothrombin Time 11.2 Seconds (9.0-12.0)
[2019-02-13 18:13] LABS: Alanine Aminotransferase 15 U/L (12-78); Albumin Level 2.4 gm/dl (3.4-5.0); Aspartate Aminotransferase 30 U/L (15-37); BUN Creatinine Ratio 19.1 (10-20); Blood Urea Nitrogen 34 mg/dl (7-18); Calcium 9.8 mg/dl (8.5-10.1); Carbon Dioxide 30 mmol/L (21-32); Chloride 103 mmol/L (98-107); Creatinine Clr Calc Pharmacy 54.6 ml/min; Est GFR (Non-African American) 41.4; Glucose 95 mg/dl (70-99); Potassium 4.1 mmol/L (3.5-5.1); Sodium 139 mmol/L (136-145)
[2019-02-13 18:20] LABS: Albumin Globulin Ratio 0.5 (0.9-2); Alkaline Phosphatase 80 U/L (45-117); Bilirubin,Total 0.3 mg/dl (0.2-1); Globulin 4.9 gm/dl (2.5-4.0); Total Protein 7.3 gm/dl (6.4-8.2); Troponin I < 0.015 ng/ml (0-0.045)
[2019-02-13 18:21] LABS: Eosinophils # (auto) 0.03 K/uL (0-0.5); Eosinophils % (auto) 0.7 %; Immature Granulocytes # (auto) 0.01 K/uL (0.00-0.02); Immature Granulocytes % (auto) 0.2 %; Lymphocytes # (auto) 0.69 K/uL (1.2-3.4); Lymphocytes % (auto) 15.8 %; Mean Platelet Volume 9.6 fL (7.4-10.4); Monocytes # (auto) 0.36 K/uL (0.11-0.59); Monocytes % (auto) 8.3 %; Neutrophils # (auto) 3.27 K/uL (1.4-6.5); Platelet Count 64 K/uL (130-400); Platelet Estimate Decreased (Normal)
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
--- NOTE | 2019-02-13 20:25 | Emergency Department Note ---
Entered by Eda Galarza acting as a scribe for History of Present Illness General Chief complaint: Altered Mental Status Source: EMS Mode of arrival: EMS Limitations: altered mental status History of Present Illness Onset (ago): hour(s) 3 Location: head Radiation: non-radiation Pain Consistency: + constant Relieved By: + none Exacerbated By: + none Associated symptoms: + fever/chills and + weakness; no chest pain and no shortness of breath Treatments prior to arrival: other (antibiotic) The patient is a 53 year old male who presents to the ED with complaints of altered mental status. He arrives to the ED via EMS. EMS states the patient was altered on arrival, mumbling and not making sense. He has been septic before. The patient did fall 2 days ago, and possibly hit his head during the fall. He currently complains of feeling tired and states he feels more weak than normal. He thinks he has been febrile. He has been eating and drinking. He denies taking any extra medication recently. EMS notes the patients sister told them his urine "smelled funny" and started giving the patient antibiotics. She states he is incontinent of bladder and bowels and was recently placed on Detrol. The patient denies any recent chest pain or shortness of breath. Home Medications Home Medications Medication Instructions Recorded Confirmed Type divalproex 1,000 mg PO BID 02/10/18 02/13/19 History cyanocobalamin (vitamin B-12) 1,000 mcg PO DAILY 04/18/18 02/13/19 History [Vitamin B-12] omega [id number]-fish oil [Fish Oil] 1,000 mg PO DAILY 04/18/18 02/13/19 History ranitidine HCl 150 mg PO HS 04/18/18 02/13/19 History vitamin E 400 unit PO DAILY 04/18/18 02/13/19 History calcium carbonate-vitamin D3 1 tab PO DAILY 11/20/18 02/13/19 History [Calcium 600 + D(3)] duloxetine [Cymbalta] 60 mg PO DAILY 11/20/18 02/13/19 History Detrol LA 4 mg PO DAILY 02/13/19 02/13/19 History ascorbic acid (vitamin C) [Vitamin 1 g PO DAILY 02/13/19 02/13/19 History C] carvedilol 12.5 mg PO BID 02/13/19 02/13/19 History levothyroxine 125 mcg PO DAILY 02/13/19 02/13/19 History oxybutynin chloride 10 mg PO DAILY 02/13/19 02/13/19 History prednisone 5 mg PO DAILY 02/13/19 02/13/19 History risperidone 2 mg PO BID 02/13/19 02/13/19 History Allergies Allergy/AdvReac Type Severity Reaction Status Date / Time furosemide Allergy Intermediate Oral Verified 02/13/19 17:16 solution - rash neomycin Allergy Intermediate Rash Verified 02/13/19 17:16 polymyxin B Allergy Intermediate Rash Verified 02/13/19 17:16 Sulfa (Sulfonamide Allergy Intermediate Bactrim - Verified 02/13/19 17:16 Antibiotics) rash. sulfamethoxazole Allergy Intermediate Rash Verified 02/13/19 17:16 [From Bactrim] trimethoprim [From Bactrim] Allergy Intermediate Rash Verified 02/13/19 17:16 aspirin Allergy Unknown Nothing Verified 02/13/19 17:16 with Aspirin. bacitracin Allergy Unknown Rash Verified 02/13/19 17:16 Cephalosporins Allergy Unknown Unknown Verified 02/13/19 17:16 doxycycline Allergy Unknown ON LIST Verified 02/13/19 17:16 moxifloxacin Allergy Unknown Unverified 12/21/18 12:43 Past Med/Surg History Medical History Hypothyroidism (Chronic) Hyperprolactinemia (Chronic) Vasculitis (Chronic) CKD (chronic kidney disease), stage III (Chronic) ALKA (iron deficiency anemia) (Chronic) Post-traumatic seizures (Chronic) Hypertension (Chronic) Chronic pain (Chronic) Bipolar disorder (Chronic) RBBB (Chronic) Hyperlipidemia (Chronic) JHOANA (obstructive sleep apnea) (Chronic) does not use cpap or bipap Reflux esophagitis (Chronic) Goiter (Chronic) 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) Hypertension (Inactive) Surgical History History of fasciotomy (Chronic) History of tracheostomy (Chronic) History of total right hip arthroplasty (Chronic) Family History Other Family history unobtainable due to patient's condition Social History (Reviewed 02/13/19 @ 16:39 by Eda Ivan Preferred Language: [place] Communication Ability: Impaired Forms Analysis Manager Required: No Beliefs That Will Affect Care: None Current Living Situation: Family Current Living Situation Comment: In a shed at his sister's house Other Information That Helps Us Care for You: No Feels Safe at Home: Declines to Answer Smoking Status: Never smoker Second Hand Exposure: No ; Hx Alcohol Use: No Hx Substance Use: No Review of Systems See HPI for pertinent positives & negatives. Unobtainable due to cognitive status Physical Exam Vital Signs Vital Signs - 24 hr 02/13/19 16:35 02/13/19 17:21 02/13/19 17:30 Temperature 36.6 C Temperature Source Oral Sepsis Recent Fever Within 48 Hours No Sepsis New/Unexplained Change in Mental Status Yes Sepsis Action Taken by Nursing No Action Required Pulse Rate 56 L 52 L Pulse Rate from SpO2 Sensor 53 L Respiratory Rate 18 22 Blood Pressure 171/97 H 163/88 H Blood Pressure Mean 121 113 Pulse Oximetry 96 96 96 Oxygen Delivery Method Nasal Cannula Nasal Cannula Room Air Oxygen Flow Rate 4 4 02/13/19 17:55 02/13/19 18:17 02/13/19 19:19 Temperature Temperature Source Sepsis Recent Fever Within 48 Hours Sepsis New/Unexplained Change in Mental Status Sepsis Action Taken by Nursing Pulse Rate 51 L 56 L 51 L Pulse Rate from SpO2 Sensor 51 L 56 L 52 L Respiratory Rate 13 20 17 Blood Pressure 146/94 H 151/86 H 156/80 H Blood Pressure Mean 111 107 105 Pulse Oximetry 92 100 Oxygen Delivery Method Room Air Room Air Oxygen Flow Rate 02/13/19 19:32 Temperature Temperature Source Sepsis Recent Fever Within 48 Hours Sepsis New/Unexplained Change in Mental Status Sepsis Action Taken by Nursing Pulse Rate 52 L Pulse Rate from SpO2 Sensor Respiratory Rate 17 Blood Pressure 171/89 H Blood Pressure Mean 116 Pulse Oximetry Oxygen Delivery Method Oxygen Flow Rate General: Chronically ill-appearing older male, in no acute distress. Patient answers questions appropriately but is difficult to understand. HEENT: Normal cephalic atraumatic. Pupils are equal round and reactive to light. Extraocular movements are intact. Oropharynx is pink with dry mucous membranes. No swelling of the mouth lips or tongue. Neck: Supple with a midline trachea. No meningeal signs or stiffness, no JVD or bruits. No Stridor. Chest: Clear to auscultation bilaterally. No wheezes or rhonchi. No increased work of breathing. Heart: regular rate and rhythm. Abdomen: Soft nontender, nondistended without rebound guarding or rigidity. Extremities: No cyanosis clubbing or edema. No calf tenderness or asymmetry Spine/Back. Non tender to palpation. No CVA tenderness Skin: Good turgor without rashes. Neurologic exam: Motor is symmetric bilaterally. Cranial nerves two through 12 are intact. Motor and sensation are intact and symmetrical throughout. Course 1637: The patient was evaluated in room B1 and a complete history and physical were performed. 1424: I discussed the patients case with Dr. Smith [facility]. The patient will be further evaluated. 1726: I reevaluated the patient. Nursing got a 2nd line and his mental status seems to be improving. 1829: I reevaluated the patient. He is still difficult to understand but seems to understand appropriately. I discussed my recommendation he remain in the hospital for further evaluation and management he verbalized complete understanding and agreement. 1836: [facility] The [facility] will be further evaluated. Consultations Consultation #1: I discussed the patients case with Dr. Smith [facility]. The patient will be further evaluated. Time: 16:37 Consultation #2: [facility] The patient will be further evaluated. Time: 18:36 Administered Medications Discontinued Medications Sodium Chloride (Nss 1000ml) 1,000 mls @ 999 mls/hr IV .[id number] ONE Stop: 02/13/19 18:29 Last Admin: 02/13/19 18:02 Dose: 999 mls/hr Documented by: [id number] Imipenem/Cilastatin Sodium 500 (mg/ Dextrose) 110 mls @ 100 mls/hr IV NOW STA; Protocol Stop: 02/13/19 18:35 Last Admin: 02/13/19 18:02 Dose: 100 mls/hr Documented by: [id number] Medical Decision Making Differential Diagnosis The differential diagnoses considered include stroke, ICH, sepsis, medication side effect, UTI, electrolyte or metabolic abnormality. Medical Records Attestation: I reviewed the patient's medical records. Home Medications Current Medication List: was personally reviewed by me Laboratory Data Attestation: I reviewed the patient's lab results. Result diagrams: 02/13/19 17:24 02/13/19 17:24 Lab Results 02/13/19 02/13/19 02/13/19 Range/Units 17:12 17:18 17:24 WBC 4.36 L (4.8-10.8) K/uL RBC 3.49 L (4.7-6.1) M/uL Hgb 10.7 L (14.0-18.0) g/dL Hct 33.8 L (42-52) % MCV 96.8 (80-100) fL MCH 30.7 (25-34) pg MCHC 31.7 L (32-36) g/dL RDW Std Deviation 63.9 H (36.4-46.3) fL RDW Coeff of Debra 18.1 H (11.5-14.5) % Plt Count 64 L (130-400) K/uL MPV 9.6 (7.4-10.4) fL Immature Gran % (Auto) 0.2 % Neut % (Auto) 75.0 % Lymph % (Auto) 15.8 % Sutton % (Auto) 8.3 % Eos % (Auto) 0.7 % Baso % (Auto) 0.0 % Immature Gran # (Auto) 0.01 (0.00-0.02) K/uL Neut # (Auto) 3.27 (1.4-6.5) K/uL Lymph # (Auto) 0.69 L (1.2-3.4) K/uL Sutton # (Auto) 0.36 (0.11-0.59) K/uL Eos # (Auto) 0.03 (0-0.5) K/uL Baso # (Auto) 0.00 (0-0.2) K/uL Platelet Estimate Decreased L (Normal) PT (9.0-12.0) Seconds INR (0.9-1.1) APTT (21.0-31.0) Seconds PTT Ratio Sodium (136-145) mmol/L Potassium (3.5-5.1) mmol/L Chloride (98-107) mmol/L Carbon Dioxide (21-32) mmol/L Anion Gap (3-11) BUN (7-18) mg/dl Creatinine (0.6-1.4) mg/dl Est Cr Clr Drug Dosing ml/min Est GFR ( Amer) Est GFR (Non-Af Amer) BUN/Creatinine Ratio (10-20) Glucose (70-99) mg/dl POC Glucose 76 (70-99) Lactate 0.9 (0.4-2.0) mmol/L Calcium (8.5-10.1) mg/dl Magnesium (1.8-2.4) mg/dl Total Bilirubin (0.2-1) mg/dl AST (15-37) U/L ALT (12-78) U/L Alkaline Phosphatase (45-117) U/L Troponin I (0-0.045) ng/ml Total Protein (6.4-8.2) gm/dl Albumin (3.4-5.0) gm/dl Globulin (2.5-4.0) gm/dl Albumin/Globulin Ratio (0.9-2) Urine Color Urine Appearance (Clear) Urine pH (4.5-7.5) Ur Specific [place] (1.000-1.030) Urine Protein (Negative) Urine Glucose (UA) (Negative) Urine Ketones (Negative) Urine Blood (Negative) Urine Nitrite (Negative) Urine Bilirubin (Negative) Urine Urobilinogen (Negative) Ur Leukocyte Esterase (Negative) Urine WBC (Auto) (0-5) /hpf Urine RBC (Auto) (0-4) /hpf U Hyaline Cast (Auto) (0-5) /lpf U Epithel Cells (Auto) (0-5) /lpf Urine Bacteria (Auto) (Negative) Valproic Acid (50-100) mcg/ml Blood Type Antibody Screen Antibody Identification 02/13/19 02/13/19 02/13/19 Range/Units 17:24 17:24 17:32 WBC (4.8-10.8) K/uL RBC (4.7-6.1) M/uL Hgb (14.0-18.0) g/dL Hct (42-52) % MCV (80-100) fL MCH (25-34) pg MCHC (32-36) g/dL RDW Std Deviation (36.4-46.3) fL RDW Coeff of Debra (11.5-14.5) % Plt Count (130-400) K/uL MPV (7.4-10.4) fL Immature Gran % (Auto) % Neut % (Auto) % Lymph % (Auto) % Sutton % (Auto) % Eos % (Auto) % Baso % (Auto) % Immature Gran # (Auto) (0.00-0.02) K/uL Neut # (Auto) (1.4-6.5) K/uL Lymph # (Auto) (1.2-3.4) K/uL Sutton # (Auto) (0.11-0.59) K/uL Eos # (Auto) (0-0.5) K/uL Baso # (Auto) (0-0.2) K/uL Platelet Estimate (Normal) PT 11.2 (9.0-12.0) Seconds INR 1.1 (0.9-1.1) APTT 29.0 (21.0-31.0) Seconds PTT Ratio 1.1 Sodium 139 (136-145) mmol/L Potassium 4.1 (3.5-5.1) mmol/L Chloride 103 (98-107) mmol/L Carbon Dioxide 30 (21-32) mmol/L Anion Gap 6.0 (3-11) BUN 34 H (7-18) mg/dl Creatinine 1.80 H (0.6-1.4) mg/dl Est Cr Clr Drug Dosing 54.6 ml/min Est GFR ( Amer) 48.0 Est GFR (Non-Af Amer) 41.4 BUN/Creatinine Ratio 19.1 (10-20) Glucose 95 (70-99) mg/dl POC Glucose (70-99) Lactate (0.4-2.0) mmol/L Calcium 9.8 (8.5-10.1) mg/dl Magnesium 2.0 (1.8-2.4) mg/dl Total Bilirubin 0.3 (0.2-1) mg/dl AST 30 (15-37) U/L ALT 15 (12-78) U/L Alkaline Phosphatase 80 (45-117) U/L Troponin I < 0.015 (0-0.045) ng/ml Total Protein 7.3 (6.4-8.2) gm/dl Albumin 2.4 L (3.4-5.0) gm/dl Globulin 4.9 H (2.5-4.0) gm/dl Albumin/Globulin Ratio 0.5 L (0.9-2) Urine Color Urine Appearance (Clear) Urine pH (4.5-7.5) Ur Specific [place] (1.000-1.030) Urine Protein (Negative) Urine Glucose (UA) (Negative) Urine Ketones (Negative) Urine Blood (Negative) Urine Nitrite (Negative) Urine Bilirubin (Negative) Urine Urobilinogen (Negative) Ur Leukocyte Esterase (Negative) Urine WBC (Auto) (0-5) /hpf Urine RBC (Auto) (0-4) /hpf U Hyaline Cast (Auto) (0-5) /lpf U Epithel Cells (Auto) (0-5) /lpf Urine Bacteria (Auto) (Negative) Valproic Acid (50-100) mcg/ml Blood Type O Negative Antibody Screen POSITIVE A Antibody Identification Anti-D 02/13/19 02/13/19 Range/Units 17:50 18:52 WBC (4.8-10.8) K/uL RBC (4.7-6.1) M/uL Hgb (14.0-18.0) g/dL Hct (42-52) % MCV (80-100) fL MCH (25-34) pg MCHC (32-36) g/dL RDW Std Deviation (36.4-46.3) fL RDW Coeff of Debra (11.5-14.5) % Plt Count (130-400) K/uL MPV (7.4-10.4) fL Immature Gran % (Auto) % Neut % (Auto) % Lymph % (Auto) % Sutton % (Auto) % Eos % (Auto) % Baso % (Auto) % Immature Gran # (Auto) (0.00-0.02) K/uL Neut # (Auto) (1.4-6.5) K/uL Lymph # (Auto) (1.2-3.4) K/uL Sutton # (Auto) (0.11-0.59) K/uL Eos # (Auto) (0-0.5) K/uL Baso # (Auto) (0-0.2) K/uL Platelet Estimate (Normal) PT (9.0-12.0) Seconds INR (0.9-1.1) APTT (21.0-31.0) Seconds PTT Ratio Sodium (136-145) mmol/L Potassium (3.5-5.1) mmol/L Chloride (98-107) mmol/L Carbon Dioxide (21-32) mmol/L Anion Gap (3-11) BUN (7-18) mg/dl Creatinine (0.6-1.4) mg/dl Est Cr Clr Drug Dosing ml/min Est GFR ( Amer) Est GFR (Non-Af Amer) BUN/Creatinine Ratio (10-20) Glucose (70-99) mg/dl POC Glucose (70-99) Lactate (0.4-2.0) mmol/L Calcium (8.5-10.1) mg/dl Magnesium (1.8-2.4) mg/dl Total Bilirubin (0.2-1) mg/dl AST (15-37) U/L ALT (12-78) U/L Alkaline Phosphatase (45-117) U/L Troponin I (0-0.045) ng/ml Total Protein (6.4-8.2) gm/dl Albumin (3.4-5.0) gm/dl Globulin (2.5-4.0) gm/dl Albumin/Globulin Ratio (0.9-2) Urine Color Yellow Urine Appearance Clear (Clear) Urine pH 6.5 (4.5-7.5) Ur Specific [place] 1.012 (1.000-1.030) Urine Protein 1+ H (Negative) Urine Glucose (UA) Negative (Negative) Urine Ketones Negative (Negative) Urine Blood Negative (Negative) Urine Nitrite Negative (Negative) Urine Bilirubin Negative (Negative) Urine Urobilinogen Negative (Negative) Ur Leukocyte Esterase Negative (Negative) Urine WBC (Auto) 0 (0-5) /hpf Urine RBC (Auto) 0-4 (0-4) /hpf U Hyaline Cast (Auto) 0 (0-5) /lpf U Epithel Cells (Auto) 0-5 (0-5) /lpf Urine Bacteria (Auto) Negative (Negative) Valproic Acid 121 H (50-100) mcg/ml Blood Type Antibody Screen Antibody Identification Imaging Data Radiologist's Impression: Radiology results as stated below per my review and the radiologist's interpretation: CT head/brain wo con CLINICAL HISTORY: Slurred speech. Suspected acute stroke. COMPARISON STUDY: MRI study dated 11/23/2018, CT scan of the head dated 2018 TECHNIQUE: Axial CT of the brain is performed from the vertex to the skull base. IV contrast was not administered for this examination. A dose lowering technique was utilized adhering to the principles of ALARA. CT DOSE: 1547.15 mGy.cm FINDINGS: No intra or extra-axial mass lesions are visualized. There is no CT evidence of acute cortical infarction. There is no evidence of midline shift. There is no acute hemorrhage. No calvarial fractures are visualized. There are minimal white matter hypodensities likely on a small vessel basis. Minor ventricular prominence is felt to be secondary to volume loss There is no evidence of acute sinusitis IMPRESSION: No acute intracranial findings Electronically signed by: Ruben Delgadillo M.D. 02/13/2019 4:46 PM ECG Data Attestation: I personally reviewed and interpreted this ECG as follows: Indication: altered mental status Rate (beats per minute): 54 Rhythm: sinus bradycardia Findings: + RBBB and + left axis deviation Comparison ECG Date: from (12/13/2018) Change: no significant change MDM Narrative This patient comes in as described above. He was placed in room B1. I did talk to the paramedics and gave a ALS medical command prior to the patient's arrival. He apparently was found with confusion and slurred speech. Other than this, he had no focal neurologic deficits. He also fell a couple days ago so is concerned for intracranial hemorrhage or injuries. He did call a stroke alert prior to arrival and he went straight to CAT scan. His blood sugar was within normal limits. In the field his blood pressure was normal/hypertensive but his pulse was in the high 30s low 40s initially the paramedics to give him atropine 0.5 mg IV and I did give ALS prehospital medical command. The patient has remained stable and with a pulse in the 50s. Looking back through his old chart which I reviewed this is baseline for him. I did also do a sepsis work-up as he has been uroseptic and apparently had urinary symptoms and apparently gets seema lar symptoms to this when he gets septic. He was given broad-spectrum IV antibiotics. His white count or lactic acid however were not elevated. Urinalysis does not appear definitely infected at this point. He has no Simulect or metabolic abnormalities. He is not a TPA candidate as his last know n well was over 6 hours additionally I think this is most likely more of a metabolic encephalopathy. Is also started on a bladder spasm medication which could account for his dry mucous membranes and some of his difficulty understanding him. His symptoms do seem to get better at times. He appears comfortable and has no complaints. I do think he needs to be admitted/observed. He is on valproic acid and I did add a level of that as well, this did come back elevated and that may be causing some of his symptoms as well. That could also cause him to fall. He was also noted to have a bruise on his right leg we did an x-ray and there is no fracture.. I did consult the [facility] hospitalist to see him in the ER for these measures. Impression & Plan Altered mental status, Slurring of speech, Valproic acid toxicity, Bradycardia Critical Care Time Critical Care Time: Yes Total Critical Care Time: 35 I have personally spent greater than 35 minutes of critical care time in the direct management of this patient. This includes bedside care, interpretation of diagnostic studies, and testing, discussion with consultants, patient, and family members, and other required patient management activities. This 35 minutes is in excess of all separately billable procedures. Discharge Plan Visit Data *Final* Discharge Date/Time: 02/13/19 21:10 Chief Complaint: Altered Mental Status ED Provider: Jose Giraldo Discharge Problem: Altered mental status, Slurring of speech, Valproic acid toxicity, Bradycardia Patient Disposition: Admitted As Inpatient Discharge Instructions Interventions: ED Discharge Assessment Last Done: 02/13/19 21:10 Discharge Problem: Altered mental status Qualifiers: Altered mental status type: unspecified Qualified Code(s): R41.82 - Altered mental status, unspecified Valproic acid toxicity Qualifiers: Encounter type: initial encounter Injury intent: accidental or unintentional Qualified Code(s): T42.6X1A - Poisoning by other antiepileptic and sedative- hypnotic drugs, accidental (unintentional), initial encounter The scribe's documentation has been prepared under my direction and personally reviewed by me in its entirety. I confirm that the note above accurately reflects all work, treatment, procedures, and medical decision making performed by me.
[2019-02-13] MEDS ORDERED: ACETAMINOPHEN 325 MG TAB PO PRN (21:32)
[2019-02-13] MEDS ORDERED: ONDANSETRON INJ 2 MG/ML 2 ML VIAL IV PRN (21:32)
[2019-02-13] MEDS ORDERED: PHARMACIST DISCHARGE MED REC CONSULT PRN (21:32)
[2019-02-13] MEDS ORDERED: NITROGLYCERIN SL 0.4 MG/TAB TAB SL PRN (21:32)
[2019-02-13] MEDS ORDERED: ERTAPENEM CONSULT ACTIVE PRN (21:50)
[2019-02-13] MEDS: SODIUM CHLORIDE 0.9% 1000ML 1,000 ML IV SCH (22:39)
[2019-02-13] MEDS: ERTAPENEM SODIUM 1,000 MG in SODIUM CHLORIDE 0.9% 50 ML IV SCH (22:39)
--- NOTE | 2019-02-13 22:40 | CT Scan Report ---
CT SCAN OF THE ABDOMEN AND PELVIS WITHOUT CONTRAST CLINICAL HISTORY: Abdominal pain GALLBLADDER DISEASE COMPARISON STUDY: 11/20/2018 TECHNIQUE: CT scan of the abdomen and pelvis was performed from the lung bases to the proximal femurs . Images are reviewed in the axial, sagittal, and coronal planes. IV contrast was not administered fo r this examination. A dose lowering technique was utilized adhering to the principles of ALARA. CT DOSE: 1553.15 mGy.cm FINDINGS: Lower chest: There are moderate coronary artery calcifications. There are mild dependent atelectatic changes. Liver: The unenhanced liver is normal in size, contour, and attenuation. There is no intrahepatic rashard iary ductal dilatation. Gallbladder: Unremarkable. Spleen: Normal in size and attenuation. Pancreas: The pancreatic distal body and tail is enlarged with a fusiform 56 mm hypodense area. Evalu ation is limited given the noncontrast nature of the examination but this may indicate pancreatic nec rosis given the prior history of pancreatitis. Adrenal glands: Unremarkable. Kidneys: No renal, ureteral, or bladder calculi are visualized. Bowel: There are no transition zone to indicate bowel obstruction. There is no evidence of acute dive rticulitis. There is scattered stool throughout the colon. The appendix appears normal. Peritoneum: There is no intraperitoneal free air or abdominal ascites. Vasculature: The abdominal aorta is normal in course and caliber. Adenopathy: None. Pelvic viscera: The bladder, and pelvic viscera are unremarkable. Skeletal structures: There is a chronic right hip deformity with superior subluxation and distraction of the femoral head. IMPRESSION: 1. Examination limited due to the lack of intravenous contrast 2. No evidence of bowel obstruction. No evidence of free air 3. Normal appendix. No evidence of acute diverticulitis 4. No renal, ureteral, or bladder calculi identified 5. Abnormal distal pancreatic body and tail which is enlarged containing a fusiform 5.6 cm in length hypodense area. Given the history of prior pancreatitis, this may represent an area of pancreatic nec rosis. There are no air bubbles to indicate a pancreatic abscess. Electronically signed by: Ruben Delgadillo M.D. 02/13/2019 10:37 PM
[2019-02-13] MEDS: HYDROCORTISONE SOD 50 MG in SYRINGE 0 ML IV SCH (22:44)
[2019-02-13] MEDS: risperiDONE 2 MG TABLET PO SCH (22:44)
--- NOTE | 2019-02-13 23:21 | History and Physical Report ---
DATE OF ADMISSION: 02/13/2019 CHIEF COMPLAINT: Slurred speech, altered mental status. HISTORY OF PRESENT ILLNESS: This is a 53-year-old male with past medical history significant for hypertension, hyperlipidemia, chronic kidney disease stage III, vasculitis, on chronic prednisone therapy, bipolar depression, posttraumatic seizure disorder, chronic thrombocytopenia, right bundle-branch block, history of hyperprolactinemia, dysmetabolic syndrome, prediabetes, sleep apnea, GERD, incontinence of urine, who lives with his sister, presents with slurred speech. The patient was recently in the hospital, was admitted on 11/20/2018 for metabolic encephalopathy, pancreatitis and pneumonia. His hospital stay was complicated with fever, sepsis, bradycardia, he was in the ICU, with UTI with E. coli, treated with Levaquin. His hypotension and bradycardia improved. His encephalopathy improved. Received 2 units of PRBCs during that hospital stay, thought to be secondary to infection and poor nutrition. His hospital stay was also complicated with small-bowel obstruction, but resolved with conservative management and also has pancreatitis and also gallbladder sludge at that time and GI recommended eventual cholecystectomy at that time and to follow up as outpatient. Though he had hyperglycemia, HbA1c was 5.9, thought to be from sepsis and chronic steroid use. Electrolyte abnormality which improved and discharged to rehab on 12/25/2018, went back home on January 14. He lives with his sister and his father. Sister takes care of both of them, and as per sister, his ambulatory status slowly improved. Now, lately he can walk from bed to the bathroom about 175 feet with a walker and assistance. Today when she went to [facility] him breakfast and pills around 10:00 to 10:30 a.m., he seemed confused, he seemed like having slurred speech. Then, speech improved. Then, he fell down. When she checked the blood pressure and sugars, they were running okay. She called the EMS, and because she was worried about recent prolonged hospitalization l with all complications, he was brought in here. By the time he came here, he was out of the window, so stroke alert was not called. The patient can tell his name, difficult to understand his speech, but he is obeying all the commands. He can lift his hands and legs, stick his tongue out, show his teeth, raise brow, can do finger nose test. Denies any complaints, but he also seemed to be bradycardic. He was given atropine by the EMS. Last admission also when he had sepsis, he was having bradycardia. He is on Coreg 12.5 p.o. b.i.d. at home. Blood pressure is somewhat running on the higher side here in the ER. Afebrile. Labs: White count leukopenia. Hemoglobin is stable at 10.7, platelets are 64, his usual range is 60- 100. Creatinine 1.8, close to baseline. Urinalysis was negative. His valproic acid came elevated at [address] of the head was okay. Chest x-ray and femur x-ray was okay. EKG, sinus bradycardia. No change from previous. Resting comfortably. ALLERGIES: FUROSEMIDE, NEOMYCIN, POLYMYXIN B, SULFA ANTIBIOTICS, BACITRACIN, CEPHALOSPORINS, DOXYCYCLINE, MOXIFLOXACIN. PAST MEDICAL HISTORY: As mentioned above. PAST SURGICAL HISTORY: Central line placement, right hemiarthroplasty, removal of the broken hardware, removal of the total hip. MEDICATIONS: Currently, the patient is on Ditropan XL 10 mg p.o. daily, Risperdal 2 mg p.o. b.i.d., Detrol-LA 4 mg p.o. daily, prednisone 5 mg p.o. daily, Coreg 12.5 mg p.o. b.i.d., levothyroxine 125 mcg p.o. daily, Zantac 150 mg p.o. daily, Cymbalta 60 mg p.o. daily, ascorbic acid 4000 mg p.o. daily, vitamin B12 1000 mcg p.o. daily, fish oil one capsule b.i.d., vitamin E 400 units p.o. daily, Depakote ER 1000 mg p.o. b.i.d., amoxicillin 2000 mg 1 hour prior to dental appointment, calcium plus vitamin D 1 tablet b.i.d. FAMILY HISTORY: No family history on file. SOCIAL HISTORY: Currently living with his sister. Former smoker, quit in 2016. Used 1 can of snuff every 2 days. No alcohol use, no drug use. REVIEW OF SYSTEMS: Unobtainable at this time. The patient has slurred speech. PHYSICAL EXAMINATION: GENERAL: The patient is alert and awake, expressive aphasia and slurred speech. VITAL SIGNS: Temperature 36.6, pulse 52, respiratory rate 17, blood pressure 171/89, oxygen 100% on room air. HEENT: No pallor, no icterus. Pupils equal, round, reactive to light. NECK: No JVD, no neck masses, no carotid bruits. CARDIOVASCULAR: S1, S2 heard. Bradycardia. No murmurs. RESPIRATORY SYSTEM: Normal AP diameter. No accessory muscle use. No wheezing, no crackles. ABDOMEN: Soft, bowel sounds present, nontender. No distention. CENTRAL NERVOUS SYSTEM: Alert and awake. Obeys simple commands. Can lift his arms, can lift his lower extremities. No pronator drift. Coordination of movements normal. [id number]-[id number] test normal. EXTREMITIES: No erythema, no edema. LABORATORY DATA: WBC 4.3, hemoglobin 10.7, hematocrit 33.8, platelets 64. PT 11.2, INR 1.1, APTT 29. Sodium 139, potassium 4.1, chloride 103, bicarbonate 30, BUN 34, creatinine 1.8, serum glucose 95, lactate 0.9, calcium 9.8, magnesium 2, total bilirubin 0.3, AST 30, ALT 15, alkaline phosphatase 80. Troponin I less than 0.015. Urinalysis is negative. Valproic acid 121. Right femur x-ray, extensive chronic changes involving the proximal right femur with absence of the femoral head, superior subluxation of the femoral shaft and extensive periosteal cortical thickening, no acute fractures identified. Chest x-ray: No acute findings. CT of the head, no acute findings. EKG: Sinus bradycardia, rate of 54, left axis deviation, right bundle-branch block, no significant change from previous EKG. ASSESSMENT AND PLAN: This 52-year-old male presents with stroke-like symptoms. 1. Stroke-like symptoms with slurred speech, but obeys commands. Moves all his extremities. No pronator drift. Coordination of movements normal. CT of the head is unremarkable. Symptoms could be possibly from elevated valproic acid, which we will hold. The patient has severe sepsis in last admission with E. coli bacteremia and urinary tract infection and also gallbladder sludge. UA looks negative now, but we will empirically place him on IV Invanz. Follow the cultures. Also follow the CT of the abdomen and pelvis to rule out any gallbladder disease or pancreatitis, which he had on last admission. We will also rule out stroke with MRI of the head. The patient has history of vasculitis. We will also get MRA of the head and carotid Doppler. Speech evaluation, PT/OT, neuro checks per protocol and consult neurology in a.m. for further recommendation. We will also get echocardiogram and close monitoring in the tele floor.Will also check ammonia levels as elevated Depakote level can cause elevated ammonia levels. 2. Bradycardia. The patient is on Coreg, which we will hold. The patient has bradycardia in last admission also when he was in severe sepsis, but that improved later. We will hold Coreg for now and monitor. May need to reduce current dose later. 3. Hypertension. Holding Coreg for bradycardia and also permissive hypertension, restart when able. May need to adjust the Coreg dose.Last admission was started on amlodipine was stopped by PCP as Blood pressure low at home. 4. History of vasculitis and chronic prednisone therapy. We will place him stress-dose steroids with IV hydrocortisone 50 mg t.i.d. for now and taper back to his usual dose when able. 5. Chronic kidney disease stage III, presented with creatinine of 1.8, seemed to close to baseline. We will follow the labs. 6. Hypothyroidism. Last admission, his Synthroid was increased to 150mcg, but he is back on 125mcg. We will follow the thyroid profile. 7. History of anemia, last admission received 2 units of PRBC secondary to probable infection, poor nutrition. His hemoglobin is stable at 10.7. We will follow. 8. History of hyperglycemia. Last HbA1c was 5.9, currently n.p.o. on iv steroids. We will monitor his blood sugars. 9. Bipolar disorder, on risperidone, which we will continue. We will hold the Depakote as valproic levels are high and restart when level comes down, may need psychiatric help to adjust the dose. 10. History of thrombocytopenia, chronic, chronically runs 60 to 100.Currently 64. We will follow the labs. Also elevated valproic acid can cause thrombocytopenia. 11. History of gallbladder sludge, last admission. We will follow the CAT scan of the abdomen and pelvis. Sister also wanted to check his left hip, so we will follow the CAT scan results. Empirically on Invanz for now. 12. Deep vein thrombosis prophylaxis, SCDs and TEDs for the thrombocytopenia. 13. Disposition: Admit to tele floor. PT/OT prior to discharge. Disposition to be determined. Social Service to help with discharge planning. Code status: Initially, sister does not want intubation, but okay with CPR and medications, but later she agreed for intubation only if there is a chance of recovery for short duration, but she needs to be called before intubation, so we will keep him full code for now. CHANDA
[2019-02-14] MEDS ORDERED: Nursing to Pharmacy Communication ONE (00:19)
[2019-02-14] MEDS ORDERED: LORazepam 0.5 MG/1 ML VIAL IV STA (01:35)
[2019-02-14] MEDS: HYDROCORTISONE SOD 50 MG in SYRINGE 0 ML IV SCH ×3 (06:11→22:16)
--- NOTE | 2019-02-14 06:38 | Ultrasound Report ---
CAROTID ARTERY ULTRASOUND CLINICAL HISTORY: cva? COMPARISON STUDY: None. TECHNIQUE: Real-time, grayscale, and color Doppler sonography of the carotid and vertebral arteries w as performed. Images were viewed in the transverse and longitudinal planes. FINDINGS: There is mild atherosclerotic plaque. Velocity measurements are listed below. COMMON CAROTID PEAK SYSTOLIC VELOCITY (CM/S): RIGHT 86 LEFT 81 ICA PEAK SYSTOLIC VELOCITY (CM/S): RIGHT 47 LEFT 65 Systolic ratios between the internal to common carotid arteries were normal. Antegrade flow is seen in the vertebral arteries. The external carotid arteries are patent. Blood pressure was not obtained in this patient. IMPRESSION: No evidence of a hemodynamically significant stenosis. Electronically signed by: José Manuel Schmitz M.D. 02/14/2019 6:37 AM
--- NOTE | 2019-02-14 06:42 | Magnetic Resonance Report ---
MRA OF THE INTRACRANIAL CIRCULATION WITHOUT CONTRAST CLINICAL HISTORY: cva? COMPARISON STUDY: Head CT February 13, 2019. TECHNIQUE: Utilizing a 1.5 Tamar magnet and 3-D [id number] technique, unenhanced MRA of the intra cranial circulation was obtained. FINDINGS: Please note that the MRI of the brain will be reported separately. This exam is compromised by motion artifact. Sensitivity for detection of small aneurysms is diminished on this exam but none are identified. No abrupt vessel cut off is identified. The bilateral M1, M2, A1 and A2 segments are patent. The left vertebral artery is dominant. The right vertebral artery is likely hypoplastic but is patent. There is persistence of the right posterior cerebral artery. There is mild stenosis of the left posterior cerebral artery. IMPRESSION: 1. No intracranial aneurysm or abrupt vessel cut off although exam compromised by motion artifact. 2. persistence of the right posterior cerebral artery. Electronically signed by: José Manuel Schmitz M.D. 02/14/2019 6:40 AM
[2019-02-14 07:27] LABS: Hematocrit (blood only) 33.1 % (42-52); Hemoglobin 10.6 g/dL (14.0-18.0); Mean Corpuscular Hemoglobin 31.3 pg (25-34); Mean Corpuscular Volume 97.6 fL (80-100); RDW Coefficient of Variation 17.6 % (11.5-14.5); Red Blood Count 3.39 M/uL (4.7-6.1); White Blood Count 2.79 K/uL (4.8-10.8)
[2019-02-14 07:37] LABS: Mean Platelet Volume 9.1 fL (7.4-10.4); Platelet Count 52 K/uL (130-400)
--- NOTE | 2019-02-14 07:39 | Magnetic Resonance Report ---
MRI OF THE BRAIN WITHOUT IV CONTRAST CLINICAL HISTORY: Strokelike symptoms. Slurred speech. COMPARISON STUDY: CT of the brain dated 02/13/2019. TECHNIQUE: MRI of the brain was performed utilizing various T1 and T2-weighted sequences in the axial , sagittal, and coronal planes. IV contrast was not administered for this examination. The examinatio n is degraded by motion artifact. FINDINGS: Brain parenchyma: There is age advanced involutional change noting minimal subcortical and periventri cular microangiopathic disease. There is no hemorrhage or mass effect. There is no restricted diffusi on to suggest acute ischemia. Nguyen-white matter differentiation is preserved. No extra-axial fluid co llection is seen. The cerebellar tonsils are normal in configuration. The hippocampi are normal and s ymmetric. Ventricles, sulci, and cisterns: Prominent secondary to involutional change. Pituitary and sella: Unremarkable. Intracranial vasculature: Normal flow voids are maintained at the skull base. Orbits: The bony orbits are grossly intact. Orbital contents are normal in appearance noting bilatera l ocular lens implants. Sinuses and mastoids: There is trace mucosal thickening in the right maxillary antrum. The remaining paranasal sinuses are clear. The mastoid air cells are well pneumatized. Calvarium: Unremarkable. Cervical cord: Partially visualized cervical spinal cord is normal in morphology and signal intensity . IMPRESSION: No acute intracranial abnormality is identified. Electronically signed by: Charlie Milligan M.D. 02/14/2019 7:37 AM
[2019-02-14 07:53] LABS: Eosinophils # (auto) 0.01 K/uL (0-0.5); Eosinophils % (auto) 0.4 %; Immature Granulocytes # (auto) 0.01 K/uL (0.00-0.02); Immature Granulocytes % (auto) 0.4 %; Lymphocytes # (auto) 0.62 K/uL (1.2-3.4); Lymphocytes % (auto) 22.2 %; Monocytes # (auto) 0.12 K/uL (0.11-0.59); Monocytes % (auto) 4.3 %; Neutrophils # (auto) 2.03 K/uL (1.4-6.5); Neutrophils % (auto) 72.7 %
[2019-02-14 07:59] LABS: BUN Creatinine Ratio 20.5 (10-20); Calcium 9.9 mg/dl (8.5-10.1); Creatinine Clr Calc Pharmacy 63.9 ml/min; Potassium 4.1 mmol/L (3.5-5.1)
[2019-02-14 08:11] LABS: Estimated Average Glucose 123 mg/dl; Hemoglobin A1C 5.9 % (4.5-5.6)
[2019-02-14] MEDS ORDERED: HydrALAZINE HCL 20 MG/ML VIAL ONE (08:44)
[2019-02-14] MEDS: LEVOTHYROXINE SODIUM 62.5 MCG in SYRINGE 0 ML IV SCH (08:48)
[2019-02-14] MEDS: SODIUM CHLORIDE 0.9% 1000ML 1,000 ML IV SCH ×2 (08:48→15:42)
[2019-02-14] MEDS ORDERED: INFLUENZA ADMINISTRATION CHARGE ONE (09:00)
[2019-02-14] MEDS ORDERED: TOLTERODINE TARTRATE LA 4 MG CAPCR PO SCH (09:00)
[2019-02-14] MEDS ORDERED: INFLUENZA VIRUS QUAD VACCINE 0.5 ML SYR IM ONE (09:00)
--- NOTE | 2019-02-14 09:04 | Gastrointestinal Consultation ---
Date of Consultation February 14, 2019 Assessment & Plan (1) Abnormal CT of the abdomen: Mr. Tigre Becerril is a 53 yr old male admitted with question of pancreatic necrosis. Films were reviewed (Dr. Meehan) with radiology. It does appear to be a walled off necrosis. This is not likely related to he presentation of decreased mental alertness. 1. Eventual MRA abdomen to r/o pseudoaneurysm. 2. Low Fat diet when alert. Start with liquids, advance as tolerated. Attg add: I interviewed and examined pt, reveiwed chart and labs. I personally reviewed imaging with radiologist. Pt with prior admission in November - initially admitted for confusion from GNR sepsis that was thought to be related to UTI. During this hosp stay, he developed pancreatitis; CT at that time showed pancreatitis, but was done without contrast. Because he had Gb sludge, pancreatitis was thought to be biliary, although LFT's were never increased; depakote induced pancreatitis was also suggested. He now returns to hosp with altered mental status. Non con CT a/p was done to evaluate the possibility of pancreatitis/cholecystitis as cause of AMS; it showed an approx 6 cm hypodenstiy, probably, WOPN in the tail, adjacent to the stomach. Labs showed normal ammonia, normal LFTs, increased depatokte level. On exam, he is somnolent and does not arouse with verbal stim; his abd is non tender. I cannot elicit a flap. A/P: - He does not appear to have depakote induced hyperammonemia on exam/labs. - Regarding his walled off panc necrosis - There is no evidence for drainage -- he does not appear symptomatic from this, imaging does not show gastric compression, and there is no lab/clinical evidence of infected necrosis. Would consider eventual MRI/MRCP to look for ductal disruption, and eventual MRA to look for pseudoaneurysm. He can be advanced to a low fat diet once his confusion resolves and once he is no longer an aspiration risk. Of note, he remains on depakote - because this remains a possible cause of his pancreatitis, would consider transistion to another anti-epileptic if possible -- will defer this decision to hospitalist. Present on Admission?: Yes History of Present Illness Reason for Consultation: Question pancreatic necrosis Requesting Physician: Dr. Rodriguez Attending Physician: Kristyn Leyva MD History of Present Illness Mr. Tigre Becerril is a 53 yr old male brought to the ED for decreased alertness. He has a complicated PMH including HTN, Hyperlipidemia, CKD-3, vasculitis on prednisone, bipolar disease, chronic thrombocytopenia, hyperprolactinemia, dysmetabolic syndrome, prediabetes, sleep apnea, GERD, incontinence of urine. He was treated for pancreatitis at [facility] in November. That hospitalization was lengthly and included care for UTI, pneumonia, ICU for sepsis and metabolic encephalopathy. The pt lives with a sister who reported that she had noticed that he had foul smelling urine and had started him on antibiotics. She also reported that he had fallen a few days earlier. Apparently at the time of admission, when asked about fevers, the pt reports having felt feverish. On arrival, a non contrast CT questioned an area of pancreatic necrosis in the tail of the pancreas. LFTs were normal, no leukocytosis or fevers. BS only mildly elevated, Ammonia and lactate are normal. normal, Imaging of the head has been normal. On arrival, pt with slurred speech. At that time of my exam this morning, the pt is very somnolent, not responding to verbal or tactile stimulation. Allergies Allergy/AdvReac Type Severity Reaction Status Date / Time furosemide Allergy Intermediate Oral Verified 02/13/19 17:16 solution - rash neomycin Allergy Intermediate Rash Verified 02/13/19 17:16 polymyxin B Allergy Intermediate Rash Verified 02/13/19 17:16 Sulfa (Sulfonamide Allergy Intermediate Bactrim - Verified 02/13/19 17:16 Antibiotics) rash. sulfamethoxazole Allergy Intermediate Rash Verified 02/13/19 17:16 [From Bactrim] trimethoprim [From Bactrim] Allergy Intermediate Rash Verified 02/13/19 17:16 aspirin Allergy Unknown Nothing Verified 02/13/19 17:16 with Aspirin. bacitracin Allergy Unknown Rash Verified 02/13/19 17:16 Cephalosporins Allergy Unknown Unknown Verified 02/13/19 17:16 doxycycline Allergy Unknown ON LIST Verified 02/13/19 17:16 moxifloxacin Allergy Unknown Unverified 12/21/18 12:43 Home Medications Home Medications Medication Instructions Recorded Confirmed Type divalproex 1,000 mg PO BID 02/10/18 02/13/19 History cyanocobalamin (vitamin B-12) 1,000 mcg PO DAILY 04/18/18 02/13/19 History [Vitamin B-12] omega 6-pcp-idx-fish oil [Fish Oil] 1,000 mg PO DAILY 04/18/18 02/13/19 History ranitidine HCl 150 mg PO HS 04/18/18 02/13/19 History vitamin E 400 unit PO DAILY 04/18/18 02/13/19 History calcium carbonate-vitamin D3 1 tab PO DAILY 11/20/18 02/13/19 History [Calcium 600 + D(3)] duloxetine [Cymbalta] 60 mg PO DAILY 11/20/18 02/13/19 History Detrol LA 4 mg PO DAILY 02/13/19 02/13/19 History ascorbic acid (vitamin C) [Vitamin 1 g PO DAILY 02/13/19 02/13/19 History C] carvedilol 12.5 mg PO BID 02/13/19 02/13/19 History levothyroxine 125 mcg PO DAILY 02/13/19 02/13/19 History oxybutynin chloride 10 mg PO DAILY 02/13/19 02/13/19 History prednisone 5 mg PO DAILY 02/13/19 02/13/19 History risperidone 2 mg PO BID 02/13/19 02/13/19 History Patient History Medical History Hypothyroidism (Chronic) Hyperprolactinemia (Chronic) Vasculitis (Chronic) CKD (chronic kidney disease), stage III (Chronic) ALKA (iron deficiency anemia) (Chronic) Post-traumatic seizures (Chronic) Hypertension (Chronic) Chronic pain (Chronic) Bipolar disorder (Chronic) RBBB (Chronic) Hyperlipidemia (Chronic) JHOANA (obstructive sleep apnea) (Chronic) does not use cpap or bipap Reflux esophagitis (Chronic) Goiter (Chronic) 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) Hypertension (Inactive) Surgical History History of fasciotomy (Chronic) History of tracheostomy (Chronic) History of total right hip arthroplasty (Chronic) Family History Other Family history unobtainable due to patient's condition Social History Preferred Language: Urdu Communication Ability: Impaired Lost Charge Card Clerk Required: No Beliefs That Will Affect Care: None Current Living Situation: Family Current Living Situation Comment: In a shed at his sister's house Other Information That Helps Us Care for You: No Feels Safe at Home: Declines to Answer Smoking Status: Never smoker Second Hand Exposure: No ; Hx Alcohol Use: No Hx Substance Use: No Review of Systems Review of Systems: Unable to obtain. Pt not responsive and no family available. Physical Exam Constitutional: + obese; no acute distress HR in the 50's. Sleeping very soundly and does not respond to sternal rub. Neck: trachea midline, no thyromegaly Respiratory: normal respiratory effort, lungs clear to auscultation Cardiovascular: Rate/Rhythm: regular rhythm and + bradycardic (50's. ) Extremities: no edema Gastrointestinal (Abdomen): normal bowel sounds, soft, nontender, no hepatosplenomegaly No indication of discomfort on deep palpation of the upper abdomen. Musculoskeletal: Head/Neck/Chest: normocephalic and + abnormal palpation of chest wall Extremities: no clubbing and no petechiae Skin: no rashes, warm and dry normal turgor Neurologic: Pt not responsive. Psychiatric: very deeply sleeping Lymphatic: no cervical or axillary lymphadenopathy Results & Data Vital Signs (Past 12 Hours) Vital Signs Temp Pulse Pulse Resp BP BP Pulse Ox 02/14/19 07:24 36.4 C L 52 L 20 167/92 H 100 02/14/19 03:22 36.3 C L 56 L 17 162/90 H 100 02/13/19 23:46 36.4 C L 52 L 19 141/66 H 96 02/13/19 22:23 46 L 02/13/19 21:32 36.5 C 41 L 14 141/81 H 99 Laboratory Results WBC 2, Hb 10, Hct 33, Platelets 52. INR, BN 32, Cr 1.54, LFTs normal. Diagnostic Findings CT abd/pelvis w/o contrast 02/13/19: 1. Examination limited due to the lack of intravenous contrast 2. No evidence of bowel obstruction. No evidence of free air 3. Normal appendix. No evidence of acute diverticulitis 4. No renal, ureteral, or bladder calculi identified 5. Abnormal distal pancreatic body and tail which is enlarged containing a fusiform 5.6 cm in length hypodense area. Given the history of prior pancreatitis, this may represent an area of pancreatic necrosis. There are no air bubbles to indicate a pancreatic abscess.
[2019-02-14] MEDS: DULOXETINE HCL 60 MG CAP PO SCH (10:26)
[2019-02-14] MEDS: OXYBUTYNIN CHLORIDE XL 5 MG TABCR PO SCH (10:27)
[2019-02-14] MEDS: risperiDONE 2 MG TABLET PO SCH ×2 (10:27→22:13)
[2019-02-14] MEDS: ASPIRIN 81 MG ECTAB PO SCH (10:27)
--- NOTE | 2019-02-14 14:16 | Neurology Consultation ---
Date of Consultation February 14, 2019 Assessment & Plan (1) Altered mental status: 1. MRI no acute findings 2. MRA head- no acute findings 3. CT head- no acute findings 4. depakote level - was 121 and now 66 5. ammonia level 22, INR elevated 6. no source of infection revealed at this time 7. depakote 1000mg BID currently 8. GI recommending a change to another AED due to pancreatic issues 9. will start Keppra 250 mg BID and try to increase it slowly in a few days. once on a higher dose we will start to wean off the Depakote. will need to watch for anger outbursts and mood changes on Keppra 10. need to monitor O2 stats and possible evaluation for sleep apnea. Supervising Physician Co-Signing Physician Notes I have seen and discussed above patient with Dr Daniel Horvath, neurology I know this man from his prior admission in the current presentation is very similar i.e. an acute nonspecific encephalopathy with waxing and waning levels of consciousness occurring in the setting now without any demonstrable imaging abnormalities on MRI and with very few significant metabolic derangements but with a Depakote level on admission that was mildly toxic but is now back into a normal range This man has multiple medical problems but from a neurologic point review is said to have a posttraumatic seizure disorder and is been on Depakote for quite a number of years Serena Duran went back through our available chart and can find no other anticonvulsants having been used in his case and specifically can find no reference to Keppra which in the setting of a possible Depakote induced acute pancreatitis issue might not be a bad medication to convert him for seizure control Today on exam he was variably awake and alert but then had an episode during which he became very somnolent had some head and eye deviation to the left and appeared to have some hypoventilation without cyanosis and then after a minute or 2 awakened and was speaking with his typical dysarthric pattern and appeared to be a little dazed When I doubt that these are nonconvulsive seizures and during his last hospitalization we did do multiple EEGs I think he would benefit from yet another tracing and will try to get this done at some point over the weekend and will get started a conversion process from Depakote to Keppra in hopes that the latter medication does not cause some behavioral issues in which case we may have to consider an entity such as Lamictal or even 1 of the carbamazepine derivatives which would be much easier to load on a short-term basis I will check back with him tomorrow Daniel Horvath MD History of Present Illness Reason for Consultation: slurred speech Requesting Physician: Kristyn Leyva MD Attending Physician: Kristyn Leyva MD History of Present Illness Tigre is a 53 year old male who has a PMH- HTN, HLD, CKD III, vasculitis, on chronic prednisone therapy, bipolar depression, posttraumatic seizure disorder, chronic thrombocytopenia, right bundle-branch block, history of hyperprolactinemia, dysmetabolic syndrome, DM2, PND, GERD, incontinence of urine, who lives with his sister, presents with slurred speech. He was hospitalized 11/20/2018 for metabolic encephalopathy, pancreatitis and pneumonia. His hospital stay was complicated with fever, sepsis, bradycardia, he was in the ICU, with UTI with E. coli, treated with Levaquin. His hypotension and leigh ann ycardia improved. His encephalopathy improved. Received 2 units of PRBCs during that hospital stay, thought to be secondary to infection and poor nutrition. His hospital stay was also complicated with small-bowel obstruction, but resolved with conservative management and also has pancreatitis and also gallbladder sludge at that time and GI recommended eventual cholecystectomy. He was discharge to rehab on 12/25/2018. His sister takes care of him and dad. He can use is walker with assistance around the house. She was giving him his mediations and he seemed confused, he seemed like having slurred speech and then had a fall. She called the EMS, and because she was worried about recent prolonged hospitalization with complications. There is no family in the room he is responding to voice command. denies CP, SOB, abdominal pain, one sided weaknss, numbness tingling. Allergies Allergy/AdvReac Type Severity Reaction Status Date / Time furosemide Allergy Intermediate Oral Verified 02/13/19 17:16 solution - rash neomycin Allergy Intermediate Rash Verified 02/13/19 17:16 polymyxin B Allergy Intermediate Rash Verified 02/13/19 17:16 Sulfa (Sulfonamide Allergy Intermediate Bactrim - Verified 02/13/19 17:16 Antibiotics) rash. sulfamethoxazole Allergy Intermediate Rash Verified 02/13/19 17:16 [From Bactrim] trimethoprim [From Bactrim] Allergy Intermediate Rash Verified 02/13/19 17:16 aspirin Allergy Unknown Nothing Verified 02/13/19 17:16 with Aspirin. bacitracin Allergy Unknown Rash Verified 02/13/19 17:16 Cephalosporins Allergy Unknown Unknown Verified 02/13/19 17:16 doxycycline Allergy Unknown ON LIST Verified 02/13/19 17:16 moxifloxacin Allergy Unknown Unverified 12/21/18 12:43 Home Medications Home Medications Medication Instructions Recorded Confirmed Type divalproex 1,000 mg PO BID 02/10/18 02/13/19 History cyanocobalamin (vitamin B-12) 1,000 mcg PO DAILY 04/18/18 02/13/19 History [Vitamin B-12] omega 6-mjp-hba-fish oil [Fish Oil] 1,000 mg PO DAILY 04/18/18 02/13/19 History ranitidine HCl 150 mg PO HS 04/18/18 02/13/19 History vitamin E 400 unit PO DAILY 04/18/18 02/13/19 History calcium carbonate-vitamin D3 1 tab PO DAILY 11/20/18 02/13/19 History [Calcium 600 + D(3)] duloxetine [Cymbalta] 60 mg PO DAILY 11/20/18 02/13/19 History Detrol LA 4 mg PO DAILY 02/13/19 02/13/19 History ascorbic acid (vitamin C) [Vitamin 1 g PO DAILY 02/13/19 02/13/19 History C] carvedilol 12.5 mg PO BID 02/13/19 02/13/19 History levothyroxine 125 mcg PO DAILY 02/13/19 02/13/19 History oxybutynin chloride 10 mg PO DAILY 02/13/19 02/13/19 History prednisone 5 mg PO DAILY 02/13/19 02/13/19 History risperidone 2 mg PO BID 02/13/19 02/13/19 History Patient History Medical History Hypothyroidism (Chronic) Hyperprolactinemia (Chronic) Vasculitis (Chronic) CKD (chronic kidney disease), stage III (Chronic) ALKA (iron deficiency anemia) (Chronic) Post-traumatic seizures (Chronic) Hypertension (Chronic) Chronic pain (Chronic) Bipolar disorder (Chronic) RBBB (Chronic) Hyperlipidemia (Chronic) JHOANA (obstructive sleep apnea) (Chronic) does not use cpap or bipap Reflux esophagitis (Chronic) Goiter (Chronic) 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) Hypertension (Inactive) Surgical History History of fasciotomy (Chronic) History of tracheostomy (Chronic) History of total right hip arthroplasty (Chronic) Family History Other Family history unobtainable due to patient's condition Social History Preferred Language: Turkish Communication Ability: Unable [employer] Intern Required: No Beliefs That Will Affect Care: None marital status: Single Current Living Situation: Family Current Living Situation Comment: In a shed at his sister's house Other Information That Helps Us Care for You: No Feels Safe at Home: Declines to Answer Smoking Status: Never smoker Second Hand Exposure: No ; Hx Alcohol Use: No Hx Substance Use: No Physical Exam Physical Exam: Physical Exam: Constitutional: appearance obese, NAD Ears, Nose, Mouth and Throat: mucous membranes moist, no injection and skin normal, eyes normal Cardiovascular: normal S-1 and S-2 and regular rate and rhythm Respiratory: course breath sounds Musculoskeletal: no peripheral edema and good distal pulses Skin: LE vascular insufficiency, non pitting edema Eyes: extraocular muscles intact (EOMI) and pupils equal, round and reactive to light (PERRL) NEUROLOGIC EXAMINATION: Mental status: Alert and interactive Oriented hospital and states he is here because he fell Oriented to person Speech dysphasia with some words Cranial Nerves facial symmetry Reflexes: Deep tendon reflexes were symmetrical and graded 2/5. no clonus Sensory: intact to light and cool touch Gait/Stance: Posture lying in bed moving all ext spontaneously . Motor: will not lift arms to command Strength: squeezes with hand and pulls but will not push with command will not lift legs off bed. Results & Data Vital Signs (Past 12 Hours) Vital Signs Temp Pulse Resp BP Pulse Ox 02/14/19 10:53 36.4 C L 55 L 20 165/82 H 98 02/14/19 09:34 156/83 H 02/14/19 08:23 53 L 20 202/98 H 100 02/14/19 07:24 36.4 C L 52 L 20 167/92 H 100 02/14/19 03:22 36.3 C L 56 L 17 162/90 H 100 Laboratory Results Abnormal lab results 02/13/19 02/13/19 02/13/19 Range/Units 17:24 17:24 17:32 WBC 4.36 L (4.8-10.8) K/uL RBC 3.49 L (4.7-6.1) M/uL Hgb 10.7 L (14.0-18.0) g/dL Hct 33.8 L (42-52) % MCHC 31.7 L (32-36) g/dL RDW Std Deviation 63.9 H (36.4-46.3) fL RDW Coeff of Debra 18.1 H (11.5-14.5) % Plt Count 64 L (130-400) K/uL Lymph # (Auto) 0.69 L (1.2-3.4) K/uL Platelet Estimate Decreased L (Normal) BUN 34 H (7-18) mg/dl Creatinine 1.80 H (0.6-1.4) mg/dl BUN/Creatinine Ratio (10-20) Hemoglobin A1c (4.5-5.6) % Albumin 2.4 L (3.4-5.0) gm/dl Globulin 4.9 H (2.5-4.0) gm/dl Albumin/Globulin Ratio 0.5 L (0.9-2) Urine Protein (Negative) Valproic Acid (50-100) mcg/ml Antibody Screen POSITIVE A 02/13/19 02/13/19 02/14/19 Range/Units 17:50 18:52 07:17 WBC 2.79 L (4.8-10.8) K/uL RBC 3.39 L (4.7-6.1) M/uL Hgb 10.6 L (14.0-18.0) g/dL Hct 33.1 L (42-52) % MCHC (32-36) g/dL RDW Std Deviation 63.0 H (36.4-46.3) fL RDW Coeff of Debra 17.6 H (11.5-14.5) % Plt Count 52 L (130-400) K/uL Lymph # (Auto) 0.62 L (1.2-3.4) K/uL Platelet Estimate (Normal) BUN (7-18) mg/dl Creatinine (0.6-1.4) mg/dl BUN/Creatinine Ratio (10-20) Hemoglobin A1c (4.5-5.6) % Albumin (3.4-5.0) gm/dl Globulin (2.5-4.0) gm/dl Albumin/Globulin Ratio (0.9-2) Urine Protein 1+ H (Negative) Valproic Acid 121 H (50-100) mcg/ml Antibody Screen 02/14/19 02/14/19 Range/Units 07:17 07:17 WBC (4.8-10.8) K/uL RBC (4.7-6.1) M/uL Hgb (14.0-18.0) g/dL Hct (42-52) % MCHC (32-36) g/dL RDW Std Deviation (36.4-46.3) fL RDW Coeff of Debra (11.5-14.5) % Plt Count (130-400) K/uL Lymph # (Auto) (1.2-3.4) K/uL Platelet Estimate (Normal) BUN 32 H (7-18) mg/dl Creatinine 1.54 H (0.6-1.4) mg/dl BUN/Creatinine Ratio 20.5 H (10-20) Hemoglobin A1c 5.9 H (4.5-5.6) % Albumin (3.4-5.0) gm/dl Globulin (2.5-4.0) gm/dl Albumin/Globulin Ratio (0.9-2) Urine Protein (Negative) Valproic Acid (50-100) mcg/ml Antibody Screen Diagnostic Findings CT head-No acute intracranial findings CXR- Suboptimal inspiration Mild cardiomegaly with suspected mild central pulmonary vascular congestion No evidence of lobar consolidation femur x ray-Extensive chronic changes involving the proximal right femur with absence of the femoral head, superior subluxation of the femoral shaft, and extensive periosteal/cortical thickening. No acute fractures identified CT abdomen/pelvic- Examination limited due to the lack of intravenous contrast No evidence of bowel obstruction. No evidence of free air Normal appendix. No evidence of acute diverticulitis No renal, ureteral, or bladder calculi identified Abnormal distal pancreatic body and tail which is enlarged containing a fusiform 5.6 cm in length hypodense area. Given the history of prior pancreatitis, this may represent an area of pancreatic necrosis. There are no air bubbles to indicate a pancreatic abscess. carotid doppler -No evidence of a hemodynamically significant stenosis. MRI brain- No acute intracranial abnormality is identified. MRA head-No intracranial aneurysm or abrupt vessel cut off although exam compromised by motion artifact. persistence of the right posterior cerebral artery. (1) Altered mental status Altered mental status type: unspecified Qualified Code(s): R41.82 - Altered mental status, unspecified
--- NOTE | 2019-02-14 14:48 | Hospitalist Progress Note ---
Date of Service February 14, 2019 Assessment & Plan (1) Stroke-like symptom: Admitted with slurred speech and altered mental status as per the daughter CT of the head and MRI of the head unremarkable Pelvic ultrasound did not show any significant stenosis Echocardiogram has been pending Patient remains very drowsy lethargic-no facial droop Appreciate neurology input and recommendation Will monitor in the telemetry unit Present on Admission?: Yes (2) Altered mental status: History of metabolic encephalopathy secondary to recurrent UTI and other infection No source of infection this time but noted to have mildly elevated valproic acid level Ammonia level is normal Blood and urine cultures have been sent Has been getting empiric antibiotic Rule out any infection before discontinuing antibiotic We will get stool for C. 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 History of pancreatitis recently Doubt any pancreatic abscess GI is on the case Will get MRCP and MRI for further evaluation (5) Pancreatitis: Does not have any acute pancreatitis at this time (6) Schizoaffective disorder, bipolar type: Remains stable we will continue current medications (7) CKD (chronic kidney disease), stage III: Creatinine seems to be at baseline We will get cautious amount of IV fluid (8) Bipolar disorder: Continue current medication Other significant medical conditions remained stable DVT prophylaxis: Has thrombocytopenia SCDs CODE STATUS Full Subjective 02/14 The patient was seen and examined in the telemetry unit He has multiple complicated past medical history as mentioned in history and physical was admitted yesterday with symptoms of stroke with change Remains drowsy as of this morning When asked to question denies any acute symptoms Review of Systems Review of Systems: Unobtainable due to endotracheal tube Neurologic: + problem reported (Remains very lethargic and drowsy.) Physical Exam Physical Exam: Lying in bed without any distress Constitutional: well developed, well nourished, + ill appearing and + obese; no acute distress Eyes: Close ENMT: external ear and nose normal, oropharynx normal Neck: trachea midline, no thyromegaly Respiratory: normal respiratory effort; no respiratory distress Auscultation: + diminished lung sounds (Bilaterally and at the bases) Cardiovascular: Rate/Rhythm: regular rate and regular rhythm Heart Sounds: no murmur Gastrointestinal (Abdomen): Inspection/Auscultation: abdomen normal to inspection and normal bowel sounds; abdomen not distended Percussion/Palpation: abdomen soft; abdomen nontender Musculoskeletal: No acute arthritis in any joints Neurologic: He remains very drowsy and lethargic Results & Data Vital Signs (Past 12 Hours) Vital Signs Temp Pulse Resp BP Pulse Ox 02/14/19 10:53 36.4 C L 55 L 20 165/82 H 98 02/14/19 09:34 156/83 H 02/14/19 08:23 53 L 20 202/98 H 100 02/14/19 07:24 36.4 C L 52 L 20 167/92 H 100 02/14/19 03:22 36.3 C L 56 L 17 162/90 H 100 Laboratory Results Short CBC 02/13/19 02/14/19 Range/Units 17:24 07:17 WBC 4.36 L 2.79 L (4.8-10.8) K/uL Hgb 10.7 L 10.6 L (14.0-18.0) g/dL Hct 33.8 L 33.1 L (42-52) % Plt Count 64 L 52 L (130-400) K/uL BMP 02/13/19 02/14/19 17:24 07:17 Sodium 139 139 Potassium 4.1 4.1 Chloride 103 106 Carbon Dioxide 30 28 BUN 34 H 32 H Creatinine 1.80 H 1.54 H Glucose 95 90 Calcium 9.8 9.9 Cardiac Enzymes 02/13/19 Range/Units 17:24 Troponin I < 0.015 (0-0.045) ng/ml Liver Function 02/13/19 Range/Units 17:24 Total Bilirubin 0.3 (0.2-1) mg/dl AST 30 (15-37) U/L ALT 15 (12-78) U/L Alkaline Phosphatase 80 (45-117) U/L Albumin 2.4 L (3.4-5.0) gm/dl Urine 02/13/19 Range/Units 17:50 Urine Color Yellow Urine Appearance Clear (Clear) Urine pH 6.5 (4.5-7.5) Ur Specific Tebbetts 1.012 (1.000-1.030) Urine Protein 1+ H (Negative) Urine Glucose (UA) Negative (Negative) Medications Administered Current Inpatient Medications Acetaminophen (Tylenol) 650 mg PO Q4H PRN PRN Reason: Pain or Fever Stop: 03/15/19 21:31 Aspirin (Ecotrin Ectab) 81 mg PO QAM [facility] Stop: 03/16/19 08:59 Last Admin: 02/14/19 10:27 Dose: Not Given Documented by: Duloxetine HCl (Cymbalta) 60 mg PO DAILY [facility] Stop: 03/16/19 08:59 Last Admin: 02/14/19 10:26 Dose: Not Given Documented by: Ertapenem (Consult) 1 ea N/A UD PRN PRN Reason: Consult Stop: 03/15/19 21:49 Hydralazine HCl (Hydralazine Hcl) 5 mg IV NOW PRN PRN Reason: Blood pressure- High Stop: 03/16/19 08:36 Hydrocortisone Sodium (Succinate 50 mg/ Syringe) 1 mls @ 4 mls/min IV Q8 [facility] Stop: 03/15/19 21:59 Last Admin: 02/14/19 06:11 Dose: 4 mls/min Documented by: Levothyroxine Sodium 62.5 mcg/ (Syringe) 3.125 mls @ 2 mls/min IV DAILY@0900 [facility] Stop: 03/16/19 08:59 Last Admin: 02/14/19 08:48 Dose: 2 mls/min Documented by: Sodium Chloride (Nss 1000ml) 1,000 mls @ 125 mls/hr IV .Q8H [facility] Stop: 03/15/19 21:31 Last Admin: 02/14/19 08:48 Dose: 125 mls/hr Documented by: Ertapenem 1,000 mg/ Sodium (Chloride) 60 mls @ 100 mls/hr IV Q24H [facility]; Protocol Stop: 02/23/19 21:59 Last Infusion: 02/13/19 23:15 Dose: Infused Documented by: Miscellaneous Information (Pharmacist Discharge Med Rec Consult) 1 ea N/A UD PRN PRN Reason: Consult Stop: 03/15/19 21:31 Nitroglycerin (Nitrostat) 0.4 mg SL UD PRN PRN Reason: Chest Pain Stop: 03/15/19 21:31 Ondansetron HCl (Zofran) 4 mg IV Q6H PRN PRN Reason: Nausea Stop: 03/15/19 21:31 Oxybutynin Chloride (Ditropan Xl) 10 mg PO DAILY [facility] Stop: 03/16/19 08:59 Last Admin: 02/14/19 10:27 Dose: Not Given Documented by: Ranitidine HCl (Zantac) 150 mg PO HS [facility] Stop: 03/15/19 21:31 Last Admin: 02/13/19 22:44 Dose: 150 mg Documented by: Risperidone (Risperdal) 2 mg PO BID [facility] Stop: 03/15/19 21:31 Last Admin: 02/14/19 10:27 Dose: Not Given Documented by: Tolterodine Tartrate (Detrol La) [address] [facility] Stop: 03/16/19 20:59 (1) Altered mental status Altered mental status type: unspecified Qualified Code(s): R41.82 - Altered mental status, unspecified (2) Valproic acid toxicity Encounter type: initial encounter Injury intent: accidental or unintentional Qualified Code(s): T42.6X1A - Poisoning by other antiepileptic and sedative- hypnotic drugs, accidental (unintentional), initial encounter
[2019-02-14 20:12] LABS: Lyme Ab IgG w/WB Rflx Negative (Negative); Lyme Ab IgM w/WB Rflx Negative (Negative)
[2019-02-14] MEDS: TOLTERODINE TARTRATE LA 4 MG CAPCR PO SCH (22:13)
[2019-02-14] MEDS: ERTAPENEM SODIUM 1,000 MG in SODIUM CHLORIDE 0.9% 50 ML IV SCH (22:16)
[2019-02-14] MEDS: levETIRAcetam 250 MG in DEXTROSE 5% 100 ML IV SCH (23:17)
[2019-02-14 23:21] LABS: Base Excess ABG 1.6 mEq/L (-9-1.8); HCO3 ABG 27 mmol/L (19-24); Oxygen Saturation ABG 91.1 % (90-95); PCO2 ABG 45 mmHg (35-46); PO2 ABG 65 mm/Hg (80-95); pH ABG 7.39 (7.35-7.45)
[2019-02-14 23:22] LABS: Allen Test POS (Pos)
[2019-02-14] MEDS: HydrALAZINE HCL 20 MG/ML VIAL IV PRN (23:50)
[2019-02-14 23:54] LABS: Influenza A virus by PCR Neg for Influ A (Neg); Influenza B virus by PCR Neg for Influ B (Neg)
[2019-02-15] MEDS: SODIUM CHLORIDE 0.9% 1000ML 1,000 ML IV SCH ×2 (02:00→11:11)
[2019-02-15] MEDS ORDERED: HydrALAZINE HCL 20 MG/ML VIAL IV STA (02:35)
[2019-02-15] MEDS: HydrALAZINE HCL 20 MG/ML VIAL IV PRN (02:38)
[2019-02-15] MEDS: HYDROCORTISONE SOD 50 MG in SYRINGE 0 ML IV SCH ×3 (06:07→21:03)
[2019-02-15] MEDS: levETIRAcetam 250 MG in DEXTROSE 5% 100 ML IV SCH (07:50)
[2019-02-15] MEDS: DULOXETINE HCL 60 MG CAP PO SCH (07:50)
[2019-02-15] MEDS: OXYBUTYNIN CHLORIDE XL 5 MG TABCR PO SCH (07:51)
[2019-02-15] MEDS: risperiDONE 2 MG TABLET PO SCH ×2 (07:51→21:03)
[2019-02-15] MEDS: ASPIRIN 81 MG ECTAB PO SCH (07:51)
[2019-02-15 08:25] LABS: Hematocrit (blood only) 32.1 % (42-52); Hemoglobin 10.4 g/dL (14.0-18.0); Mean Corpuscular Hemoglobin 30.7 pg (25-34); Mean Corpuscular Hgb Conc 32.4 g/dL (32-36); Mean Corpuscular Volume 94.7 fL (80-100); RDW Coefficient of Variation 17.9 % (11.5-14.5); RDW Standard Deviation 61.5 fL (36.4-46.3); Red Blood Count 3.39 M/uL (4.7-6.1); White Blood Count 3.94 K/uL (4.8-10.8)
[2019-02-15 08:27] LABS: Platelet Count 55 K/uL (130-400)
[2019-02-15 08:46] LABS: Basophils # (auto) 0.01 K/uL (0-0.2); Basophils % (auto) 0.3 %; Immature Granulocytes # (auto) 0.03 K/uL (0.00-0.02); Immature Granulocytes % (auto) 0.8 %; Lymphocytes # (auto) 0.45 K/uL (1.2-3.4); Lymphocytes % (auto) 11.4 %; Monocytes # (auto) 0.32 K/uL (0.11-0.59); Monocytes % (auto) 8.1 %; Neutrophils # (auto) 3.13 K/uL (1.4-6.5); Neutrophils % (auto) 79.4 %
[2019-02-15 08:48] LABS: Albumin Level 2.2 gm/dl (3.4-5.0); BUN Creatinine Ratio 21.1 (10-20); Calcium 9.6 mg/dl (8.5-10.1); Creatinine Clr Calc Pharmacy 79.3 ml/min; Est GFR (African American) 77.6; Magnesium 1.8 mg/dl (1.8-2.4); Potassium 3.6 mmol/L (3.5-5.1)
[2019-02-15 08:51] LABS: Albumin Globulin Ratio 0.5 (0.9-2); Bilirubin,Total 0.3 mg/dl (0.2-1); Phosphorus 2.1 mg/dl (2.5-4.9); Total Protein 6.2 gm/dl (6.4-8.2)
[2019-02-15] MEDS: LEVOTHYROXINE SODIUM 62.5 MCG in SYRINGE 0 ML IV SCH (09:28)
--- NOTE | 2019-02-15 10:24 | Hospitalist Progress Note ---
Date of Service February 15, 2019 Assessment & Plan (1) Stroke-like symptom: Admitted with slurred speech and altered mental status as per the daughter CT of the head and MRI of the head unremarkable Pelvic ultrasound did not show any significant stenosis Echocardiogram has been pending Patient remains very drowsy lethargic-no facial droop Appreciate neurology input and recommendation Will monitor in the telemetry unit No more neuro symptoms (2) Altered mental status: History of metabolic encephalopathy secondary to recurrent UTI and other infection No source of infection this time but noted to have mildly elevated valproic acid level Ammonia level is normal Blood and urine cultures have been sent Has been getting empiric antibiotic Rule out any infection before discontinuing antibiotic We will get stool for C. 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 History of pancreatitis recently Doubt any pancreatic abscess GI is on the case Will get MRCP and MRI for further evaluation-likely to be done as an outpatient (5) Pancreatitis: Does not have any acute pancreatitis at this time (6) Schizoaffective disorder, bipolar type: Remains stable we will continue current medications No acute symptoms (7) CKD (chronic kidney disease), stage III: Creatinine seems to be at baseline We will get cautious amount of IV fluid Creatinine has been normalized We will decrease IV fluid to 75 cc an hour Monitor PRP (8) Bipolar disorder: Continue current medication Other significant medical conditions remained stable DVT prophylaxis: Has thrombocytopenia SCDs CODE STATUS Full We will discuss with the sister Subjective 02/14 The patient was seen and examined in the telemetry unit He has multiple complicated past medical history as mentioned in history and physical was admitted yesterday with symptoms of stroke with change Remains drowsy as of this morning When asked to question denies any acute symptoms 02/15 Patient seen and examined in telemetry unit He was noted to have high blood pressure, systolic more than 190 He has been alert and awake today Communicating reasonably well Denies any symptoms Review of Systems Review of Systems: All systems reviewed and are unremarkable except as noted below Neurologic: + problem reported (Remains pleasantly confused) Physical Exam Physical Exam: Lying in bed comfortably Constitutional: well developed, well nourished, + ill appearing and + obese; no acute distress ENMT: external ear and nose normal, oropharynx normal Neck: trachea midline, no thyromegaly Respiratory: normal respiratory effort; no respiratory distress Auscultation: + diminished lung sounds (Bilaterally and at the bases) Cardiovascular: Rate/Rhythm: regular rate and regular rhythm Heart Sounds: no murmur Gastrointestinal (Abdomen): Inspection/Auscultation: abdomen normal to inspection and normal bowel sounds; abdomen not distended Percussion/Palpation: abdomen soft; abdomen nontender Musculoskeletal: No acute arthritis in any joints Neurologic: moves all extremities Speech / Cognition: + abnormal speech Generally weak Psychiatric: Orientation: alert Affect: + depressed affect and + flat affect Results & Data Vital Signs (Past 12 Hours) Vital Signs Temp Pulse Pulse Resp BP BP Pulse Ox 02/15/19 07:49 36.8 C 52 L 17 191/90 H 198/70 H 92 02/15/19 03:55 36.3 C L 98 H 21 162/88 H 98 02/15/19 02:31 36.3 C L 52 L 16 194/105 H 98 02/14/19 23:34 36.4 C L 63 20 184/87 H 98 Laboratory Results Short CBC 02/15/19 Range/Units 08:14 WBC 3.94 L (4.8-10.8) K/uL Hgb 10.4 L (14.0-18.0) g/dL Hct 32.1 L (42-52) % Plt Count 55 L (130-400) K/uL BMP 02/15/19 08:14 Sodium 145 Potassium 3.6 Chloride 114 H Carbon Dioxide 23 BUN 26 H Creatinine 1.21 D Glucose 145 H Calcium 9.6 Liver Function 02/15/19 Range/Units 08:14 Total Bilirubin 0.3 (0.2-1) mg/dl AST 17 (15-37) U/L ALT 11 L (12-78) U/L Alkaline Phosphatase 65 (45-117) U/L Albumin 2.2 L (3.4-5.0) gm/dl Medications Administered Current Inpatient Medications Acetaminophen (Tylenol) 650 mg PO Q4H PRN PRN Reason: Pain or Fever Stop: 03/15/19 21:31 Aspirin (Ecotrin Ectab) 81 mg PO QAM [facility] Stop: 03/16/19 08:59 Last Admin: 02/15/19 07:51 Dose: 81 mg Documented by: Duloxetine HCl (Cymbalta) 60 mg PO DAILY [facility] Stop: 03/16/19 08:59 Last Admin: 02/15/19 07:50 Dose: 60 mg Documented by: Ertapenem (Consult) 1 ea N/A UD PRN PRN Reason: Consult Stop: 03/15/19 21:49 Hydrocortisone Sodium (Succinate 50 mg/ Syringe) 1 mls @ 4 mls/min IV Q8 [facility] Stop: 03/15/19 21:59 Last Admin: 02/15/19 06:07 Dose: 4 mls/min Documented by: Levothyroxine Sodium 62.5 mcg/ (Syringe) 3.125 mls @ 2 mls/min IV DAILY@0900 [facility] Stop: 03/16/19 08:59 Last Admin: 02/15/19 09:28 Dose: 2 mls/min Documented by: Sodium Chloride (Nss 1000ml) 1,000 mls @ 125 mls/hr IV .Q8H [facility] Stop: 03/15/19 21:31 Last Admin: 02/15/19 02:00 Dose: 125 mls/hr Documented by: Ertapenem 1,000 mg/ Sodium (Chloride) 60 mls @ 100 mls/hr IV Q24H [facility]; Protocol Stop: 02/23/19 21:59 Last Infusion: 02/14/19 22:52 Dose: Infused Documented by: Levetiracetam 250 mg/ Dextrose 102.5 mls @ 420 mls/hr IV Q12 [facility] Stop: 03/16/19 23:29 Last Infusion: 02/15/19 08:58 Dose: Infused Documented by: Miscellaneous Information (Pharmacist Discharge Med Rec Consult) 1 ea N/A UD PRN PRN Reason: Consult Stop: 03/15/19 21:31 Nitroglycerin (Nitrostat) 0.4 mg SL UD PRN PRN Reason: Chest Pain Stop: 03/15/19 21:31 Ondansetron HCl (Zofran) 4 mg IV Q6H PRN PRN Reason: Nausea Stop: 03/15/19 21:31 Oxybutynin Chloride (Ditropan Xl) 10 mg PO DAILY [facility] Stop: 03/16/19 08:59 Last Admin: 02/15/19 07:51 Dose: 10 mg Documented by: Ranitidine HCl (Zantac) 150 mg PO [facility] Stop: 03/15/19 21:31 Last Admin: 02/14/19 22:13 Dose: Not Given Documented by: Risperidone (Risperdal) 2 mg PO BID [facility] Stop: 03/15/19 21:31 Last Admin: 02/15/19 07:51 Dose: 2 mg Documented by: Tolterodine Tartrate (Detrol La) 4 mg PO [facility] Stop: 03/16/19 20:59 Last Admin: 02/14/19 22:13 Dose: Not Given Documented by: (1) Altered mental status Altered mental status type: unspecified Qualified Code(s): R41.82 - Altered mental status, unspecified (2) Valproic acid toxicity Encounter type: initial encounter Injury intent: accidental or unintentional Qualified Code(s): T42.6X1A - Poisoning by other antiepileptic and sedative- hypnotic drugs, accidental (unintentional), initial encounter
[2019-02-15] MEDS ORDERED: AMLODIPINE BESYLATE 5 MG TAB PO STA (10:27)
[2019-02-15] MEDS ORDERED: POTASSIUM PHOS 3 MMOL/1 ML INFUSION IV STA (10:34)
--- NOTE | 2019-02-15 10:35 | Communication Note ---
Date of Service: February 15, 2019 Mr. Little is now much more alert interactive but still is a little encephalopathic and distractible but moves all extremities well, has less of a tremor and is much more awake Plans to convert him from Depakote to Keppra are underway. He is currently on Keppra 250 mg twice a day and his standard dose of Depakote. EEG is pending but probably will not be done until Sunday Tomorrow when I see him I will cut the Depakote down to 500 mg once a day and push the Keppra up to 500 mg twice a day and then in several days time will completely stop the Depakote This might improve his encephalopathy, might improve his tremor and certainly should protect him from further episodes of Depakote induced pancreatitis I will see him back tomorrow and follow-up and reassess the situation Daniel Horvath MD
[2019-02-15] MEDS ORDERED: POTASSIUM PHOSPHATE 24 MMOL in SODIUM CHLORIDE 0.9% 500 ML IV ONE (11:00)
[2019-02-15] MEDS ORDERED: HydrALAZINE HCL 20 MG/ML VIAL IV PRN (11:21)
[2019-02-15] MEDS ORDERED: DIVALPROEX DELAY RELEASE 500 MG TAB PO SCH ×3 (17:30→21:00)
[2019-02-15] MEDS: TOLTERODINE TARTRATE LA 4 MG CAPCR PO SCH (21:03)
[2019-02-16] MEDS: SODIUM CHLORIDE 0.9% 1000ML 1,000 ML IV SCH ×3 (03:30→20:00)
[2019-02-16] MEDS: HYDROCORTISONE SOD 50 MG in SYRINGE 0 ML IV SCH ×3 (05:52→20:01)
[2019-02-16 06:51] LABS: Hemoglobin 11.1 g/dL (14.0-18.0); Mean Corpuscular Hemoglobin 30.9 pg (25-34); Mean Corpuscular Hgb Conc 32.6 g/dL (32-36); Mean Corpuscular Volume 94.7 fL (80-100); Nucleated RBC # (auto) 0.05 K/uL (0-0); Nucleated RBC % (auto) 1.1 %; RDW Coefficient of Variation 17.9 % (11.5-14.5); RDW Standard Deviation 62.7 fL (36.4-46.3); Red Blood Count 3.59 M/uL (4.7-6.1); White Blood Count 4.46 K/uL (4.8-10.8)
[2019-02-16 07:10] LABS: Mean Platelet Volume 9.3 fL (7.4-10.4); Platelet Count 57 K/uL (130-400)
[2019-02-16 07:11] LABS: Basophils # (auto) 0.01 K/uL (0-0.2); Basophils % (auto) 0.2 %; Immature Granulocytes # (auto) 0.03 K/uL (0.00-0.02); Immature Granulocytes % (auto) 0.7 %; Lymphocytes # (auto) 0.99 K/uL (1.2-3.4); Lymphocytes % (auto) 22.2 %; Neutrophils # (auto) 3.03 K/uL (1.4-6.5); Neutrophils % (auto) 67.9 %
[2019-02-16 07:16] LABS: BUN Creatinine Ratio 16.9 (10-20); Est GFR (African American) 71.2; Est GFR (Non-African American) 61.4; Potassium 3.6 mmol/L (3.5-5.1)
[2019-02-16] MEDS: ASPIRIN 81 MG ECTAB PO SCH (07:53)
[2019-02-16] MEDS: OXYBUTYNIN CHLORIDE XL 5 MG TABCR PO SCH (07:53)
[2019-02-16] MEDS: AMLODIPINE BESYLATE 5 MG TAB PO SCH (07:53)
[2019-02-16] MEDS: risperiDONE 2 MG TABLET PO SCH ×2 (07:53→20:02)
[2019-02-16] MEDS: DULOXETINE HCL 60 MG CAP PO SCH (07:54)
[2019-02-16] MEDS: DIVALPROEX DELAY RELEASE 500 MG TAB PO SCH ×2 (07:54→20:02)
[2019-02-16] MEDS: LEVOTHYROXINE SODIUM 62.5 MCG in SYRINGE 0 ML IV SCH (09:32)
--- NOTE | 2019-02-16 10:42 | Hospitalist Progress Note ---
Date of Service February 16, 2019 Assessment & Plan (1) Stroke-like symptom: Admitted with slurred speech and altered mental status as per the daughter CT of the head and MRI of the head unremarkable Pelvic ultrasound did not show any significant stenosis Echocardiogram has been pending Patient remains very drowsy lethargic-no facial droop Appreciate neurology input and recommendation No more strokelike symptoms and the patient has been eating and drinking normally As per demand from the sister The sister is very anxious and worried about her brother's bipolar conditions According to the sister the patient has been on Depakote thousand milligrams twice daily for bipolar disorder and not for seizure She does not want the medicine to be taken off as this can cause severe bipolar symptoms as per her prior experience She is accepting that these Depakote dose can cause a problem with recurrent pancreatitis She was warned that the pancreatitis could be worse with continuation of these medication In spite of all these warnings she wanted to have this medicine for her brother Intravenous Lamictal has been discontinued and the patient has been put on his Depakote at thousand milligrams twice daily Intravenous antibiotic has been discontinued due to severe drug interaction with Depakote The patient remains otherwise stable (2) Altered mental status: History of metabolic encephalopathy secondary to recurrent UTI and other infection No source of infection this time but noted to have mildly elevated valproic acid level Ammonia level is normal Blood and urine cultures have been sent Has been getting empiric antibiotic Rule out any infection before discontinuing antibiotic We will get stool for C. 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 History of pancreatitis recently Doubt any pancreatic abscess GI is on the case Will get MRCP and MRI for further evaluation-likely to be done as an outpatient (5) Pancreatitis: Does not have any acute pancreatitis at this time (6) Schizoaffective disorder, bipolar type: Remains stable we will continue current medications No acute symptoms (7) CKD (chronic kidney disease), stage III: Creatinine seems to be at baseline We will get cautious amount of IV fluid Creatinine has been normalized We will decrease IV fluid to 75 cc an hour Monitor PRP (8) Bipolar disorder: Continue current medication Other significant medical conditions remained stable DVT prophylaxis: Has thrombocytopenia SCDs CODE STATUS Full Discussing the case with the sister every day sometimes, 2 times a day Subjective 02/14 The patient was seen and examined in the telemetry unit He has multiple complicated past medical history as mentioned in history and physical was admitted yesterday with symptoms of stroke with change Remains drowsy as of this morning When asked to question denies any acute symptoms 02/15 Patient seen and examined in telemetry unit He was noted to have high blood pressure, systolic more than 190 He has been alert and awake today Communicating reasonably well Denies any symptoms 02/16 The patient was seen and examined in the telemetry unit He has been feeling a lot better today and seems to be less confused Denies any significant symptoms today No fever and/or chills, no abdominal pain nausea and/or vomiting, and no more neurological symptoms Review of Systems Review of Systems: All systems reviewed and are unremarkable except as noted below Neurologic: + problem reported (Remains pleasantly confused) Physical Exam Physical Exam: Lying in bed comfortably Constitutional: well developed, well nourished and + obese; no acute distress and not ill appearing Eyes: PERRL, conjunctivae normal, anicteric sclerae ENMT: external ear and nose normal, oropharynx normal Neck: trachea midline, no thyromegaly Respiratory: normal respiratory effort; no respiratory distress Auscultation: + diminished lung sounds (Bilaterally and at the bases) Cardiovascular: Rate/Rhythm: regular rate and regular rhythm Heart Sounds: no murmur Gastrointestinal (Abdomen): Inspection/Auscultation: abdomen normal to inspection and normal bowel sounds; abdomen not distended Percussion/Palpation: abdomen soft; abdomen nontender Neurologic: moves all extremities Speech / Cognition: normal speech Remains pleasantly confused Psychiatric: Orientation: alert Affect: + depressed affect and + flat affect Results & Data Vital Signs (Past 12 Hours) Vital Signs Temp Pulse Resp BP Pulse Ox 02/16/19 07:17 36.5 C 52 L 20 175/97 H 93 02/16/19 03:35 36.9 C 80 16 172/91 H 95 02/16/19 01:41 36.5 C 45 L 16 168/83 H 95 Laboratory Results Short CBC 02/16/19 Range/Units 06:29 WBC 4.46 L (4.8-10.8) K/uL Hgb 11.1 L (14.0-18.0) g/dL Hct 34.0 L (42-52) % Plt Count 57 L (130-400) K/uL BMP 02/16/19 06:29 Sodium 144 Potassium 3.6 Chloride 109 H Carbon Dioxide 27 BUN 22 H Creatinine 1.30 Glucose 142 H Calcium 9.0 Medications Administered Current Inpatient Medications Acetaminophen (Tylenol) 650 mg PO Q4H PRN PRN Reason: Pain or Fever Stop: 03/15/19 21:31 Amlodipine Besylate (Norvasc) 5 mg PO QAM [facility] Stop: 03/18/19 08:59 Last Admin: 02/16/19 07:53 Dose: 5 mg Documented by: Aspirin (Ecotrin Ectab) 81 mg PO QAM [facility] Stop: 03/16/19 08:59 Last Admin: 02/16/19 07:53 Dose: 81 mg Documented by: Divalproex Sodium (Depakote Delay Release) 1,000 mg PO BID [facility] Stop: 03/18/19 08:59 Last Admin: 02/16/19 07:54 Dose: 1,000 mg Documented by: Duloxetine HCl (Cymbalta) 60 mg PO DAILY [facility] Stop: 03/16/19 08:59 Last Admin: 02/16/19 07:54 Dose: 60 mg Documented by: Ertapenem (Consult) 1 ea N/A UD PRN PRN Reason: Consult Stop: 03/15/19 21:49 Hydralazine HCl (Hydralazine Hcl) 5 mg IV Q6H PRN PRN Reason: Blood Pressure - High Stop: 03/17/19 11:29 Hydrocortisone Sodium (Succinate 50 mg/ Syringe) 1 mls @ 4 mls/min IV Q8 [facility] Stop: 03/15/19 21:59 Last Admin: 02/16/19 05:52 Dose: 4 mls/min Documented by: Levothyroxine Sodium 62.5 mcg/ (Syringe) 3.125 mls @ 2 mls/min IV DAILY@0900 [facility] Stop: 03/16/19 08:59 Last Admin: 02/16/19 09:32 Dose: 2 mls/min Documented by: Sodium Chloride (Nss 1000ml) 1,000 mls @ 75 mls/hr IV .[id number] [facility] Stop: 03/15/19 21:31 Last Admin: 02/16/19 03:30 Dose: 75 mls/hr Documented by: Ertapenem 1,000 mg/ Sodium (Chloride) 60 mls @ 100 mls/hr IV Q24H [facility]; Protocol Stop: 02/23/19 21:59 Last Infusion: 02/14/19 22:52 Dose: Infused Documented by: Levetiracetam 250 mg/ Dextrose 102.5 mls @ 420 mls/hr IV Q12 [facility] Stop: 03/16/19 23:29 Last Infusion: 02/15/19 08:58 Dose: Infused Documented by: Miscellaneous Information (Pharmacist Discharge Med Rec Consult) 1 ea N/A UD PRN PRN Reason: Consult Stop: 03/15/19 21:31 Nitroglycerin (Nitrostat) 0.4 mg SL UD PRN PRN Reason: Chest Pain Stop: 03/15/19 21:31 Ondansetron HCl (Zofran) 4 mg IV Q6H PRN PRN Reason: Nausea Stop: 03/15/19 21:31 Oxybutynin Chloride (Ditropan Xl) 10 mg PO DAILY [facility] Stop: 03/16/19 08:59 Last Admin: 02/16/19 07:53 Dose: 10 mg Documented by: Ranitidine HCl (Zantac) 150 mg PO HS [facility] Stop: 03/15/19 21:31 Last Admin: 02/15/19 21:03 Dose: 150 mg Documented by: Risperidone (Risperdal) 2 mg PO BID [facility] Stop: 03/15/19 21:31 Last Admin: 02/16/19 07:53 Dose: 2 mg Documented by: Tolterodine Tartrate (Detrol La) 4 mg PO [facility] Stop: 03/16/19 20:59 Last Admin: 02/15/19 21:03 Dose: 4 mg Documented by: (1) Altered mental status Altered mental status type: unspecified Qualified Code(s): R41.82 - Altered mental status, unspecified (2) Valproic acid toxicity Encounter type: initial encounter Injury intent: accidental or unintentional Qualified Code(s): T42.6X1A - Poisoning by other antiepileptic and sedative- hypnotic drugs, accidental (unintentional), initial encounter
--- NOTE | 2019-02-16 11:30 | Communication Note ---
Date of Service: February 16, 2019 Tigre is significantly improved today. He is jovial alert awake cooperative superficially oriented recall seeing me and no seizure activity etc. is been reported nor has he had any real confusion of significance. He is taking oral medications and at this point I am going to switch him to 500 mg of Keppra twice a day the IV 250 mg dose being stopped and tomorrow if he tolerates this and is not too sleepy we will get a begin to shave away at the Depakote dropping it probably 500 mg every week or so and keeping the Keppra at 500 mg twice a day for about 2 weeks and then moving it to 750 mg twice a day. Hopefully this will result in equivalent seizure control, his mood will not be altered and the dose will be adequate as long as his renal function does not decline and we need to have a backward adjustment Serena Duran and I will be back to see him tomorrow review the chart and the labs and begin the process of tapering the Depakote. If he continues to improve this is likely he will be able to be discharged to home and we will have to set up a schedule for converting from Depakote to Keppra with his sister Daniel Horvath MD
[2019-02-16] MEDS: levETIRAcetam 500 MG TAB PO SCH (20:01)
[2019-02-16] MEDS: TOLTERODINE TARTRATE LA 4 MG CAPCR PO SCH (20:01)
[2019-02-17] MEDS: HYDROCORTISONE SOD 50 MG in SYRINGE 0 ML IV SCH ×2 (06:02→14:15)
[2019-02-17] MEDS: SODIUM CHLORIDE 0.9% 1000ML 1,000 ML IV SCH (06:03)
[2019-02-17 06:41] LABS: Hematocrit (blood only) 32.7 % (42-52); Hemoglobin 10.6 g/dL (14.0-18.0); Mean Corpuscular Hemoglobin 30.9 pg (25-34); Mean Corpuscular Hgb Conc 32.4 g/dL (32-36); Mean Corpuscular Volume 95.3 fL (80-100); Nucleated RBC # (auto) 0.04 K/uL (0-0); Nucleated RBC % (auto) 0.9 %; RDW Coefficient of Variation 18.2 % (11.5-14.5); RDW Standard Deviation 62.9 fL (36.4-46.3); Red Blood Count 3.43 M/uL (4.7-6.1); White Blood Count 3.92 K/uL (4.8-10.8)
[2019-02-17 06:51] LABS: Mean Platelet Volume 8.8 fL (7.4-10.4); Platelet Count 56 K/uL (130-400)
[2019-02-17 07:11] LABS: Eosinophils # (auto) 0.05 K/uL (0-0.5); Eosinophils % (auto) 1.3 %; Immature Granulocytes # (auto) 0.12 K/uL (0.00-0.02); Immature Granulocytes % (auto) 3.1 %; Monocytes % (auto) 7.7 %; Neutrophils # (auto) 2.55 K/uL (1.4-6.5); Neutrophils % (auto) 64.9 %
[2019-02-17 07:12] LABS: Albumin Level 2.3 gm/dl (3.4-5.0); BUN Creatinine Ratio 17.3 (10-20); Calcium 9.2 mg/dl (8.5-10.1); Est GFR (African American) 75.4; Magnesium 1.5 mg/dl (1.8-2.4); Potassium 3.4 mmol/L (3.5-5.1)
[2019-02-17 07:22] LABS: Albumin Globulin Ratio 0.6 (0.9-2); Bilirubin,Total 0.5 mg/dl (0.2-1); Globulin 3.9 gm/dl (2.5-4.0); Phosphorus 2.7 mg/dl (2.5-4.9); Total Protein 6.2 gm/dl (6.4-8.2)
[2019-02-17] MEDS ORDERED: POTASSIUM CHLORIDE 20 MEQ TABCR PO STA (07:57)
[2019-02-17] MEDS: MAGNESIUM OXIDE 400 MG TAB PO SCH ×2 (08:45→20:33)
[2019-02-17] MEDS: DIVALPROEX DELAY RELEASE 500 MG TAB PO SCH (08:46)
[2019-02-17] MEDS: AMLODIPINE BESYLATE 5 MG TAB PO SCH (08:46)
[2019-02-17] MEDS: DULOXETINE HCL 60 MG CAP PO SCH (08:46)
[2019-02-17] MEDS: risperiDONE 2 MG TABLET PO SCH ×2 (08:46→20:31)
[2019-02-17] MEDS: OXYBUTYNIN CHLORIDE XL 5 MG TABCR PO SCH (08:46)
[2019-02-17] MEDS: levETIRAcetam 500 MG TAB PO SCH (08:47)
[2019-02-17] MEDS: ASPIRIN 81 MG ECTAB PO SCH (08:47)
[2019-02-17] MEDS: LEVOTHYROXINE SODIUM 62.5 MCG in SYRINGE 0 ML IV SCH (09:22)
--- NOTE | 2019-02-17 12:05 | Hospitalist Progress Note ---
Date of Service February 17, 2019 Assessment & Plan (1) Stroke-like symptom: Admitted with slurred speech and altered mental status as per the daughter CT of the head and MRI of the head unremarkable Pelvic ultrasound did not show any significant stenosis Echocardiogram has been pending Patient remains very drowsy lethargic-no facial droop Appreciate neurology input and recommendation No more strokelike symptoms and the patient has been eating and drinking normally As per demand from the sister The sister is very anxious and worried about her brother's bipolar conditions According to the sister the patient has been on Depakote thousand milligrams twice daily for bipolar disorder and not for seizure She does not want the medicine to be taken off as this can cause severe bipolar symptoms as per her prior experience She is accepting that these Depakote dose can cause a problem with recurrent pancreatitis She was warned that the pancreatitis could be worse with continuation of these medication In spite of all these warnings she wanted to have this medicine for her brother Intravenous Lamictal has been discontinued and the patient has been put on his Depakote at thousand milligrams twice daily Intravenous antibiotic has been discontinued due to severe drug interaction with Depakote The patient remains otherwise stable (2) Altered mental status: Toxic encephalopathy is possively due to valproic acid toxicity, POA History of metabolic encephalopathy secondary to recurrent UTI and other infection No source of infection this time but noted to have mildly elevated valproic acid level Ammonia level is normal Blood and urine cultures have been sent Has been getting empiric antibiotic Rule out any infection before discontinuing antibiotic We will get stool for C. difficile-still not collected Remains pleasantly confused Mental status is much improved today He is back to his baseline No more confusion and has been participating in physical therapy (3) Valproic acid toxicity: Valproic acid level was elevated at around 123 Could be the cause for mental status changes without any LFTs abnormality Valproic acid level has come down to therapeutic range Appreciate neurology input and recommendation Valproic acid has been changed to Keppra Keppra has been discontinued as of yesterday Depakote is restarted as per instruction by POA, the sister Will discuss with POA to reduce the dose of valproate (4) Abnormal CT of the abdomen: 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 History of pancreatitis recently Doubt any pancreatic abscess GI is on the case Will get MRCP and MRI for further evaluation-likely to be done as an outpatient Will need outpatient GI appointment (5) Pancreatitis: Does not have any acute pancreatitis at this time (6) Schizoaffective disorder, bipolar type: Remains stable we will continue current medications No acute symptoms (7) CKD (chronic kidney disease), stage III: Creatinine seems to be at baseline We will get cautious amount of IV fluid Creatinine has been normalized We will decrease IV fluid to 75 cc an hour Monitor PRP (8) Bipolar disorder: Continue current medication Other significant medical conditions remained stable DVT prophylaxis: Has thrombocytopenia SCDs CODE STATUS Full Discussing the case with the sister every day sometimes, 2 times a day Likely discharge tomorrow Subjective 02/14 The patient was seen and examined in the telemetry unit He has multiple complicated past medical history as mentioned in history and physical was admitted yesterday with symptoms of stroke with change Remains drowsy as of this morning When asked to question denies any acute symptoms 02/15 Patient seen and examined in telemetry unit He was noted to have high blood pressure, systolic more than 190 He has been alert and awake today Communicating reasonably well Denies any symptoms 02/16 The patient was seen and examined in the telemetry unit He has been feeling a lot better today and seems to be less confused Denies any significant symptoms today No fever and/or chills, no abdominal pain nausea and/or vomiting, and no more neurological symptoms 02/17 Patient was seen and examined in the telemetry unit He has been much better this morning Is out of bed on a chair and getting physical therapy Mentally clear as of today Denies any symptoms Review of Systems Review of Systems: All systems reviewed and are unremarkable except as noted below Neurologic: + problem reported (Remains pleasantly confused) Physical Exam Physical Exam: Sitting on a chair without any symptoms Constitutional: well developed, well nourished and + obese; no acute distress and not ill appearing Eyes: PERRL, conjunctivae normal, anicteric sclerae ENMT: external ear and nose normal, oropharynx normal Neck: trachea midline, no thyromegaly Respiratory: normal respiratory effort; no respiratory distress Auscultation: + diminished lung sounds (Bilaterally and at the bases) Cardiovascular: Rate/Rhythm: regular rate and regular rhythm Heart Sounds: no murmur Gastrointestinal (Abdomen): Inspection/Auscultation: abdomen normal to inspection and normal bowel sounds; abdomen not distended Percussion/Palpation: abdomen soft; abdomen nontender Musculoskeletal: No acute arthritis in any of the joints Neurologic: moves all extremities Speech / Cognition: normal speech Motor/Sensory: no tremor Psychiatric: Orientation: alert Affect: euthymic affect Results & Data Vital Signs (Past 12 Hours) Vital Signs Temp Pulse Resp BP Pulse Ox 02/17/19 11:29 36.4 C L 81 16 169/100 H 94 02/17/19 07:04 36.4 C L 68 20 150/90 H 97 02/17/19 03:18 36.4 C L 67 14 135/91 97 Laboratory Results Home Medications Medication Instructions Recorded Confirmed divalproex 1,000 mg PO BID 02/10/18 02/13/19 cyanocobalamin (vitamin B-12) 1,000 mcg PO DAILY 04/18/18 02/13/19 [Vitamin B-12] omega 3-tke-twd-fish oil [Fish Oil] 1,000 mg PO DAILY 04/18/18 02/13/19 ranitidine HCl 150 mg PO HS 04/18/18 02/13/19 vitamin E 400 unit PO DAILY 04/18/18 02/13/19 calcium carbonate-vitamin D3 1 tab PO DAILY 11/20/18 02/13/19 [Calcium 600 + D(3)] duloxetine [Cymbalta] 60 mg PO DAILY 11/20/18 02/13/19 Detrol LA 4 mg PO DAILY 02/13/19 02/13/19 ascorbic acid (vitamin C) [Vitamin 1 g PO DAILY 02/13/19 02/13/19 C] carvedilol 12.5 mg PO BID 02/13/19 02/13/19 levothyroxine 125 mcg PO DAILY 02/13/19 02/13/19 oxybutynin chloride 10 mg PO DAILY 02/13/19 02/13/19 prednisone 5 mg PO DAILY 02/13/19 02/13/19 risperidone 2 mg PO BID 02/13/19 02/13/19 Medications Administered Current Inpatient Medications Acetaminophen (Tylenol) 650 mg PO Q4H PRN PRN Reason: Pain or Fever Stop: 03/15/19 21:31 Amlodipine Besylate ([facility]asc) [facility] Stop: 03/18/19 08:59 Last Admin: 02/17/19 08:46 Dose: 5 mg Documented by: Aspirin (Ecotrin Ectab) 81 [facility] [place] [facility] Stop: 03/16/19 08:59 Last Admin: 02/17/19 08:47 Dose: 81 mg Documented by: Divalproex Sodium (Depakote Delay Release) 1,000 mg PO BID NIC Stop: 03/18/19 08:59 Last Admin: 02/17/19 08:46 Dose: 1,000 mg Documented by: Duloxetine HCl (Cymbalta) 60 mg PO DAILY NIC Stop: 03/16/19 08:59 Last Admin: 02/17/19 08:46 Dose: 60 mg Documented by: Ertapenem (Consult) 1 ea N/A UD PRN PRN Reason: Consult Stop: 03/15/19 21:49 Hydralazine HCl (Hydralazine Hcl) 5 mg IV Q6H PRN PRN Reason: Blood Pressure - High Stop: 03/17/19 11:29 Last Admin: 02/16/19 20:16 Dose: 5 mg Documented by: Hydrocortisone Sodium (Succinate 50 mg/ Syringe) 1 mls @ 4 mls/min IV Q8 [facility] Stop: 03/15/19 21:59 Last Admin: 02/17/19 06:02 Dose: 4 mls/min Documented by: Levothyroxine Sodium 62.5 mcg/ (Syringe) 3.125 mls @ 2 mls/min IV DAILY@0900 [facility] Stop: 03/16/19 08:59 Last Admin: 02/17/19 09:22 Dose: 2 mls/min Documented by: Sodium Chloride (Nss 1000ml) 1,000 mls @ 75 mls/hr IV .[id number] [facility] Stop: 03/15/19 21:31 Last Admin: 02/17/19 06:03 Dose: 75 mls/hr Documented by: Ertapenem 1,000 mg/ Sodium (Chloride) 60 mls @ 100 mls/hr IV Q24H [facility]; Protocol Stop: 02/23/19 21:59 Last Infusion: 02/14/19 22:52 Dose: Infused Documented by: Levetiracetam 250 mg/ Dextrose 102.5 mls @ 420 mls/hr IV Q12 [facility] Stop: 03/16/19 23:29 Last Infusion: 02/15/19 08:58 Dose: Infused Documented by: Levetiracetam (Keppra) 500 mg PO BID [facility] Stop: 03/18/19 20:59 Last Admin: 02/17/19 08:47 Dose: 500 mg Documented by: Magnesium Oxide (Mag-Ox) 400 mg PO BID [facility] Stop: 03/19/19 08:59 Last Admin: 02/17/19 08:45 Dose: 400 mg Documented by: Nitroglycerin (Nitrostat) 0.4 mg SL UD PRN PRN Reason: Chest Pain Stop: 03/15/19 21:31 Ondansetron HCl (Zofran) 4 mg IV Q6H PRN PRN Reason: Nausea Stop: 03/15/19 21:31 Oxybutynin Chloride (Ditropan Xl) 10 mg PO DAILY [facility] Stop: 03/16/19 08:59 Last Admin: 02/17/19 08:46 Dose: 10 mg Documented by: Ranitidine HCl (Zantac) 150 mg PO HS [facility] Stop: 03/15/19 21:31 Last Admin: 02/16/19 20:02 Dose: 150 mg Documented by: Risperidone (Risperdal) 2 mg PO BID [facility] Stop: 03/15/19 21:31 Last Admin: 02/17/19 08:46 Dose: 2 mg Documented by: Tolterodine Tartrate (Detrol La) 4 mg PO HS [facility] Stop: 03/16/19 20:59 Last Admin: 02/16/19 20:01 Dose: 4 mg Documented by: (1) Altered mental status Altered mental status type: unspecified Qualified Code(s): R41.82 - Altered mental status, unspecified (2) Valproic acid toxicity Encounter type: initial encounter Injury intent: accidental or unintentional Qualified Code(s): T42.6X1A - Poisoning by other antiepileptic and sedative- hypnotic drugs, accidental (unintentional), initial encounter
[2019-02-17] MEDS ORDERED: AMLODIPINE BESYLATE 5 MG TAB PO ONE (12:08)
--- NOTE | 2019-02-17 13:44 | Neurology Progress Note ---
Date of Service February 17, 2019 Assessment & Plan (1) Altered mental status: 1. MRI no acute findings 2. MRA head- no acute findings 3. CT head- no acute findings 4. depakote level - was 121 and now 66 5. ammonia level 22, INR elevated 6. no source of infection revealed at this time 7. depakote 1000mg BID start to decrease by 500 mg every week 8. GI recommending a change to another AED due to pancreatic issues 9. was start Keppra 250 mg BID now increased to 500 mg BID in another week in crease to 750 mg BID start to wean off the Depakote. will need to watch for anger outbursts and mood changes on Keppra 10. need to monitor O2 stats and possible evaluation for sleep apnea. Supervising Physician Co-Signing Physician Notes I have seen and discussed above patient with Dr Daniel Horvath, neurology I have seen this man today and agree that she is probably back to his baseline state which is somewhat energized, digressive and disorganized but this certainly no significant tremor he certainly not somnolent and everything looks like his back to where he usually is in terms of what I can recall his sister description of his behavior was prior to the weekend We went under the assumption that the Depakote was on board to treat a posttraumatic seizure disorder but according by Dr. Leyva has told me today it was really on board for controlling his bipolar disease and his sister with whom he lives his adamantly against converting him from Depakote to Keppra and indeed if the defecate was on board for treatment of bipolarity and not seizures then switched to Keppra would not be ideal Gastroenterology feels strongly that the Depakote is responsible for the pancreatitis but according to what Dr. Leyva says the sister is aware of this and still insists that his Depakote be continued At this point in neurology is going to acquiesce to the desires of the patient's sister who apparently is his medical power of attorney at law and manages his case and will stop the planned titration of Keppra and tapering off of the Depakote Dr. Leyva has made the appropriate changes to the medications and our plans to follow-up in neurology clinic have essentially been scrapped and are unnecessary now He is likely can be discharged tomorrow and neurology would be happy to take a look at him on an as-needed basis in the future but I do not think he needs to be seen regularly in our clinic his primary care physician Dr. Ball manage the psychiatric medications with the advice of the outpatient psychiatry service who hopefully is still providing care Daniel Horvath MD Xiang Landeros is a 53 year old male who has a PMH- HTN, HLD, CKD III, vasculitis, on chronic prednisone therapy, bipolar depression, posttraumatic seizure disorder, chronic thrombocytopenia, right bundle-branch block, history of hyperprolactinemia, dysmetabolic syndrome, DM2, PND, GERD, incontinence of urine, who lives with his sister, presents with slurred speech. He was hospitalized 11/20/2018 for metabolic encephalopathy, pancreatitis and pneumonia. His hospital stay was complicated with fever, sepsis, bradycardia, he was in the ICU, with UTI with E. coli, treated with Levaquin. His hypotension and bradycardia improved. His encephalopathy improved. Received 2 units of PRBCs during that hospital stay, thought to be secondary to infection and poor nutrition. His hospital stay was also complicated with small-bowel obstruction, but resolved with conservative management and also has pancreatitis and also gallbladder sludge at that time and GI recommended eventual cholecystectomy. He was discharge to rehab on 12/25/2018. His sister takes care of him and dad. He can use is walker with assistance around the house. She was giving him his mediations and he seemed confused, he seemed like having slurred speech and then had a fall. She called the EMS, and because she was worried about recent prolonged hospitalization with complications. There is no family in the room however he is much improved. He is able to follow commands and is alert and oriented to self and place. denies CP, SOB, abdominal pain, one sided weaknss, numbness tingling. Physical Exam Physical Exam: Gen: alert NAD lungs Course breath sounds CV RRR able to reach to top of bed and pull himself into position in the bed hand money examiner biceps triceps 5/5 bilaterally hip flex right absent , left 5/5, plantar flex ext bilaterally 5/5 sensation intact to cool and light touch reflexes: symmetric bilaterally Results & Data Vital Signs (Past 12 Hours) Vital Signs Temp Pulse Resp BP Pulse Ox 02/17/19 11:29 36.4 C L 81 16 169/100 H 94 02/17/19 07:04 36.4 C L 68 20 150/90 H 97 02/17/19 03:18 36.4 C L 67 14 135/91 97 Laboratory Results Abnormal lab results 02/16/19 02/16/19 02/17/19 Range/Units 16:00 20:14 06:21 WBC (4.8-10.8) K/uL RBC (4.7-6.1) M/uL Hgb (14.0-18.0) g/dL Hct (42-52) % RDW Std Deviation (36.4-46.3) fL RDW Coeff of Debra (11.5-14.5) % Plt Count (130-400) K/uL Immature Gran # (Auto) (0.00-0.02) K/uL Lymph # (Auto) (1.2-3.4) K/uL Absolute Nucleated RBC (0-0) K/uL Potassium 3.4 L (3.5-5.1) mmol/L BUN 22 H (7-18) mg/dl Glucose 162 H (70-99) mg/dl POC Glucose 109 H 127 H (70-99) Magnesium 1.5 L (1.8-2.4) mg/dl Total Protein 6.2 L (6.4-8.2) gm/dl Albumin 2.3 L (3.4-5.0) gm/dl Albumin/Globulin Ratio 0.6 L (0.9-2) 02/17/19 02/17/19 02/17/19 Range/Units 06:21 07:02 11:19 WBC 3.92 L (4.8-10.8) K/uL RBC 3.43 L (4.7-6.1) M/uL Hgb 10.6 L (14.0-18.0) g/dL Hct 32.7 L (42-52) % RDW Std Deviation 62.9 H (36.4-46.3) fL RDW Coeff of Debra 18.2 H (11.5-14.5) % Plt Count 56 L (130-400) K/uL Immature Gran # (Auto) 0.12 H (0.00-0.02) K/uL Lymph # (Auto) 0.90 L (1.2-3.4) K/uL Absolute Nucleated RBC 0.04 H (0-0) K/uL Potassium (3.5-5.1) mmol/L BUN (7-18) mg/dl Glucose (70-99) mg/dl POC Glucose 151 H 164 H (70-99) Magnesium (1.8-2.4) mg/dl Total Protein (6.4-8.2) gm/dl Albumin (3.4-5.0) gm/dl Albumin/Globulin Ratio (0.9-2) Diagnostic Findings no new imaging (1) Altered mental status Altered mental status type: unspecified Qualified Code(s): R41.82 - Altered mental status, unspecified
[2019-02-17] MEDS: TOLTERODINE TARTRATE LA 4 MG CAPCR PO SCH (20:33)
[2019-02-17] MEDS: carvediloL 6.25 MG TAB PO SCH (20:39)
[2019-02-17] MEDS ORDERED: DIVALPROEX EXTENDED RELEASE 250 MG TABCR PO SCH (21:00)
[2019-02-17] MEDS ORDERED: DIVALPROEX DELAY RELEASE 500 MG TAB PO SCH (21:00)
[2019-02-17] MEDS ORDERED: CARBOHYDRATES FOR HYPOGLYCEMIA PO PRN (23:30)
[2019-02-17] MEDS ORDERED: GLUCAGON FOR INJ 1 MG VIAL IM PRN (23:30)
[2019-02-17] MEDS ORDERED: GLUCOSE 40% GEL 15 GM TUBE PO PRN (23:30)
[2019-02-17] MEDS ORDERED: DEXTROSE 50% 50 ML SYRINGE IV PRN (23:30)
[2019-02-17] MEDS ORDERED: GLUCOSE 10 TABS/TUBE PO PRN (23:30)
[2019-02-18] MEDS: INSULIN ASPART 100 UNITS/ML 3 ML PEN SC SCH ×5 (00:17→20:30)
[2019-02-18] MEDS: LEVOTHYROXINE SODIUM 125 MCG TABLET PO SCH (05:39)
[2019-02-18 06:34] LABS: Hematocrit (blood only) 35.6 % (42-52); Hemoglobin 11.6 g/dL (14.0-18.0); Mean Corpuscular Hemoglobin 30.9 pg (25-34); Mean Corpuscular Hgb Conc 32.6 g/dL (32-36); Mean Corpuscular Volume 94.9 fL (80-100); Nucleated RBC # (auto) 0.05 K/uL (0-0); Nucleated RBC % (auto) 0.5 %; RDW Coefficient of Variation 17.9 % (11.5-14.5); Red Blood Count 3.75 M/uL (4.7-6.1); White Blood Count 9.06 K/uL (4.8-10.8)
[2019-02-18 06:36] LABS: Mean Platelet Volume 9.3 fL (7.4-10.4); Platelet Count 67 K/uL (130-400)
[2019-02-18 07:04] LABS: Basophils # (auto) 0.01 K/uL (0-0.2); Basophils % (auto) 0.1 %; Eosinophils # (auto) 0.05 K/uL (0-0.5); Eosinophils % (auto) 0.6 %; Immature Granulocytes # (auto) 0.03 K/uL (0.00-0.02); Immature Granulocytes % (auto) 0.3 %; Lymphocytes # (auto) 1.38 K/uL (1.2-3.4); Lymphocytes % (auto) 15.2 %; Monocytes # (auto) 0.73 K/uL (0.11-0.59); Monocytes % (auto) 8.1 %; Neutrophils # (auto) 6.86 K/uL (1.4-6.5); Neutrophils % (auto) 75.7 %; Toxic Vacuolation 1+
[2019-02-18 07:05] LABS: Calcium 9.4 mg/dl (8.5-10.1); Creatinine Clr Calc Pharmacy 71.3 ml/min; Est GFR (African American) 69.9; Est GFR (Non-African American) 60.3; Potassium 3.2 mmol/L (3.5-5.1)
[2019-02-18 07:10] LABS: Phosphorus 1.7 mg/dl (2.5-4.9)
[2019-02-18 08:03] LABS: Estimated Average Glucose 120 mg/dl; Hemoglobin A1C 5.8 % (4.5-5.6)
[2019-02-18] MEDS: OXYBUTYNIN CHLORIDE XL 5 MG TABCR PO SCH (08:45)
[2019-02-18] MEDS: DULOXETINE HCL 60 MG CAP PO SCH (08:45)
[2019-02-18] MEDS: carvediloL 6.25 MG TAB PO SCH ×2 (08:45→20:26)
[2019-02-18] MEDS: CALCIUM 600MG + VIT D 400 IU TAB PO SCH (08:45)
[2019-02-18] MEDS: ASPIRIN 81 MG ECTAB PO SCH (08:45)
[2019-02-18] MEDS: OMEGA-3 (PURIFIED FISH OIL) 1 GM CAP PO SCH (08:46)
[2019-02-18] MEDS: risperiDONE 2 MG TABLET PO SCH ×2 (08:46→20:32)
[2019-02-18] MEDS: AMLODIPINE BESYLATE 5 MG TAB PO SCH (08:46)
[2019-02-18] MEDS: predniSONE 5 MG TAB PO SCH (08:46)
[2019-02-18] MEDS: CYANOCOBALAMIN 500 MCG TABLET (VITAMIN B-12) PO SCH (08:46)
[2019-02-18] MEDS: TOCOPHERYL, DL-ALPHA 400 UNITS CAP PO SCH (08:47)
[2019-02-18] MEDS: MAGNESIUM OXIDE 400 MG TAB PO SCH ×2 (08:47→20:29)
[2019-02-18] MEDS: ASCORBIC ACID 500 MG TAB PO SCH (08:47)
[2019-02-18] MEDS ORDERED: DIVALPROEX DELAY RELEASE 500 MG TAB PO SCH (09:00)
[2019-02-18] MEDS: DIVALPROEX DELAY RELEASE 500 MG TAB PO SCH ×2 (10:21→20:40)
[2019-02-18] MEDS ORDERED: POTASSIUM CHLORIDE 20 MEQ TABCR PO STA (11:37)
[2019-02-18] MEDS ORDERED: POTASSIUM PHOS 3 MMOL/1 ML INFUSION IV STA (11:37)
[2019-02-18] MEDS ORDERED: POTASSIUM PHOSPHATE 30 MMOL in SODIUM CHLORIDE 0.9% 500 ML IV ONE (12:15)
--- NOTE | 2019-02-18 15:33 | Hospitalist Progress Note ---
Date of Service February 18, 2019 Assessment & Plan (1) Stroke-like symptom: Admitted with slurred speech and altered mental status as per the daughter CT of the head and MRI of the head unremarkable Pelvic ultrasound did not show any significant stenosis Echocardiogram has been pending Patient remains very drowsy lethargic-no facial droop Appreciate neurology input and recommendation No more strokelike symptoms and the patient has been eating and drinking normally As per demand from the sister The sister is very anxious and worried about her brother's bipolar conditions According to the sister the patient has been on Depakote thousand milligrams twice daily for bipolar disorder and not for seizure She does not want the medicine to be taken off as this can cause severe bipolar symptoms as per her prior experience She is accepting that these Depakote dose can cause a problem with recurrent pancreatitis She was warned that the pancreatitis could be worse with continuation of these medication In spite of all these warnings she wanted to have this medicine for her brother Intravenous Lamictal has been discontinued and the patient has been put on his Depakote at thousand milligrams twice daily Intravenous antibiotic has been discontinued due to severe drug interaction with Depakote The patient remains otherwise stable He has been feeling a lot better since yesterday Depakote 1000 mg twice daily has been continued We will get a valproic acid level Likely discharge tomorrow (2) Altered mental status: Toxic encephalopathy is possively due to valproic acid toxicity, POA History of metabolic encephalopathy secondary to recurrent UTI and other infection No source of infection this time but noted to have mildly elevated valproic acid level Ammonia level is normal Blood and urine cultures have been sent Has been getting empiric antibiotic Rule out any infection before discontinuing antibiotic We will get stool for C. difficile-still not collected Remains pleasantly confused Mental status is much improved today He is back to his baseline No more confusion and has been participating in physical therapy Remains at his baseline-discussed with the sister We will go home tomorrow (3) Valproic acid toxicity: Valproic acid level was elevated at around 123 Could be the cause for mental status changes without any LFTs abnormality Valproic acid level has come down to therapeutic range Appreciate neurology input and recommendation Valproic acid has been changed to Keppra Keppra has been discontinued as of yesterday Depakote is restarted as per instruction by POLinda, the sister Will discuss with POA to reduce the dose of valproate Advised to make an appointment with outpatient psychiatrist to decrease the dose of Depakote if possible GI advised to discontinue Depakote and the neurologist was trying to taper it off with introduction of Keppra but the sister did not agree with that management She was warned against possible recurrent pancreatitis and toxicity with continuing Depakote (4) Abnormal CT of the abdomen: 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 History of pancreatitis recently Doubt any pancreatic abscess GI is on the case Will get MRCP and MRI for further evaluation-likely to be done as an outpatient Will need outpatient GI appointment (5) Pancreatitis: Does not have any acute pancreatitis at this time (6) Schizoaffective disorder, bipolar type: Remains stable we will continue current medications No acute symptoms (7) CKD (chronic kidney disease), stage III: Creatinine seems to be at baseline We will get cautious amount of IV fluid Creatinine has been normalized We will decrease IV fluid to 75 cc an hour Monitor PRP (8) Bipolar disorder: Continue current medication Other significant medical conditions remained stable DVT prophylaxis: Has thrombocytopenia SCDs CODE STATUS Full Discussing the case with the sister every day sometimes, 2 times a day Likely discharge tomorrow Subjective 02/14 The patient was seen and examined in the telemetry unit He has multiple complicated past medical history as mentioned in history and physical was admitted yesterday with symptoms of stroke with change Remains drowsy as of this morning When asked to question denies any acute symptoms 10 Patient seen and examined in telemetry unit He was noted to have high blood pressure, systolic more than 190 He has been alert and awake today Communicating reasonably well Denies any symptoms 10 The patient was seen and examined in the telemetry unit He has been feeling a lot better today and seems to be less confused Denies any significant symptoms today No fever and/or chills, no abdominal pain nausea and/or vomiting, and no more neurological symptoms 02/17 Patient was seen and examined in the telemetry unit He has been much better this morning Is out of bed on a chair and getting physical therapy Mentally clear as of today Denies any symptoms 02/18 The patient was seen and examined in medical floor He was noted to be anxious this morning He did not get his Depakote last night and that was given this morning When I saw him he was not complaining of any problem He has been feeling fine and he wants to go home Review of Systems Review of Systems: All systems reviewed and are unremarkable except as noted below Neurologic: no behavioral changes and no confusion Physical Exam Physical Exam: Lying in bed without any acute symptoms Constitutional: well developed, well nourished and + obese; no acute distress and not ill appearing Eyes: PERRL, conjunctivae normal, anicteric sclerae ENMT: external ear and nose normal, oropharynx normal Neck: trachea midline, no thyromegaly Respiratory: normal respiratory effort; no respiratory distress Auscultation: + diminished lung sounds (Bilaterally and at the bases) Cardiovascular: Rate/Rhythm: regular rate and regular rhythm Heart Sounds: no murmur Extremities: + edema (Trace to 1+ bilaterally) Gastrointestinal (Abdomen): Inspection/Auscultation: abdomen normal to inspection and normal bowel sounds; abdomen not distended Percussion/Palpatio n: abdomen soft; abdomen nontender Musculoskeletal: No acute arthritis in any of the joints Neurologic: moves all extremities; no focal motor deficits Speech / Cognition: normal speech Motor/Sensory: no tremor Psychiatric: Orientation: alert Affect: euthymic affect Lymphatic: no cervical or axillary lymphadenopathy Results & Data Vital Signs (Past 12 Hours) Vital Signs Temp Pulse Resp BP Pulse Ox 02/18/19 06:53 36.8 C 71 20 170/95 H 93 Laboratory Results Short CBC 02/18/19 Range/Units 05:41 WBC 9.06 (4.8-10.8) K/uL Hgb 11.6 L (14.0-18.0) g/dL Hct 35.6 L (42-52) % Plt Count 67 L (130-400) K/uL BMP 02/18/19 05:41 Sodium 137 Potassium 3.2 L Chloride 102 Carbon Dioxide 27 BUN 24 H Creatinine 1.32 Glucose 129 H Calcium 9.4 Medications Administered Current Inpatient Medications Acetaminophen (Tylenol) 650 mg PO Q4H PRN PRN Reason: Pain or Fever Stop: 03/15/19 21:31 Amlodipine Bes[facility] ([facility]asc) [facility] [place] Stop: 03/20/19 08:59 Last Admin: 02/18/19 08:46 Dose: 10 mg Documented by: Ascorbic Acid (Vitamin C) 1,000 mg PO DAILY [facility] Stop: 03/20/19 08:59 Last Admin: 02/18/19 08:47 Dose: 1,000 mg Documented by: Aspirin (Ecotrin Ectab) 81 mg PO QAM [facility] Stop: 03/16/19 08:59 Last Admin: 02/18/19 08:45 Dose: 81 mg Documented by: Carvedilol (Coreg) 12.5 mg PO BID [facility] Stop: 03/19/19 20:59 Last Admin: 02/18/19 08:45 Dose: 12.5 mg Documented by: Cyanocobalamin (Vitamin B-12) 1,000 mcg PO DAILY [facility] Stop: 03/20/19 08:59 Last Admin: 02/18/19 08:46 Dose: 1,000 mcg Documented by: Dextrose (Dextrose 50%) 25 - 50 ml IV UD PRN; Protocol PRN Reason: Hypoglycemia Protocol Stop: 03/19/19 23:29 Divalproex Sodium (Depakote Delay Release) 1,000 mg PO BID [facility] Stop: 03/20/19 09:59 Last Admin: 02/18/19 10:21 Dose: 1,000 mg Documented by: Duloxetine HCl (Cymbalta) 60 mg PO DAILY [facility] Stop: 03/16/19 08:59 Last Admin: 02/18/19 08:45 Dose: 60 mg Documented by: Fish Oil ([place]-3 (Purified Fish Oil)) 1 gm PO DAILY [facility] Stop: 03/20/19 08:59 Last Admin: 02/18/19 08:46 Dose: 1 gm Documented by: Glucagon (Glucagen) 1 mg IM UD PRN; Protocol PRN Reason: Hypoglycemia Protocol Stop: 03/19/19 23:29 Glucose (Glucose 40%) 15 - 30 gm PO UD PRN; Protocol PRN Reason: Hypoglycemia Protocol Stop: 03/19/19 23:29 Glucose (Dex4 Glucose) 4 - 8 tabs PO UD PRN; Protocol PRN Reason: Hypoglycemia Protocol Stop: 03/19/19 23:29 Potassium Phosphate 30 mmol/ (Sodium Chloride) 510 mls @ 100 mls/hr IV 1215 ONE Stop: 02/18/19 17:20 Last Admin: 02/18/19 12:44 Dose: 100 mls/hr Documented by: Insulin Aspart (Novolog Flexpen) 0 units SC ACHS [facility] Stop: 03/19/19 23:29 Last Admin: 02/18/19 12:09 Dose: Not Given Documented by: Levothyroxine Sodium (Synthroid) 125 mcg PO DAILYBB [facility] Stop: 03/20/19 06:29 Last Admin: 02/18/19 05:39 Dose: 125 mcg Documented by: Magnesium Oxide (Mag-Ox) 400 mg PO BID [facility] Stop: 03/19/19 08:59 Last Admin: 02/18/19 08:47 Dose: 400 mg Documented by: Miscellaneous (Carbohydrates For Hypoglycemia) 15 - 30 gm PO UD PRN PRN Reason: Hypoglycemia Treatment Stop: 03/19/19 23:29 Multivitamins/Minerals (Caltrate Plus) 1 tab PO DAILY [facility] Stop: 03/20/19 08:59 Last Admin: 02/18/19 08:45 Dose: 1 tab Documented by: Nitroglycerin (Nitrostat) 0.4 mg SL UD PRN PRN Reason: Chest Pain Stop: 03/15/19 21:31 Ondansetron HCl (Zofran) 4 mg IV Q6H PRN PRN Reason: Nausea Stop: 03/15/19 21:31 Oxybutynin Chloride (Ditropan Xl) 10 mg PO DAILY [facility] Stop: 03/16/19 08:59 Last Admin: 02/18/19 08:45 Dose: 10 mg Documented by: Prednisone (Prednisone) 5 mg PO DAILY [facility] Stop: 03/20/19 08:59 Last Admin: 02/18/19 08:46 Dose: 5 mg Documented by: Ranitidine HCl (Zantac) 150 mg PO [facility] Stop: 03/15/19 21:31 Last Admin: 02/17/19 20:32 Dose: 150 mg Documented by: Risperidone (Risperdal) 2 mg PO BID [facility] Stop: 03/15/19 21:31 Last Admin: 02/18/19 08:46 Dose: 2 mg Documented by: Tolterodine Tartrate (Detrol La) 4 mg PO [facility] Stop: 03/16/19 20:59 Last Admin: 02/17/19 20:33 Dose: 4 mg Documented by: Vitamin E (Vitamin E) 400 units PO DAILY [facility] Stop: 03/20/19 08:59 Last Admin: 02/18/19 08:47 Dose: 400 units Documented by: (1) Altered mental status Altered mental status type: unspecified Qualified Code(s): R41.82 - Altered mental status, unspecified (2) Valproic acid toxicity Encounter type: initial encounter Injury intent: accidental or unintentional Qualified Code(s): T42.6X1A - Poisoning by other antiepileptic and sedative- hypnotic drugs, accidental (unintentional), initial encounter
[2019-02-18] MEDS: TOLTERODINE TARTRATE LA 4 MG CAPCR PO SCH (20:29)
[2019-02-19] MEDS: LEVOTHYROXINE SODIUM 125 MCG TABLET PO SCH (05:22)
[2019-02-19 06:53] LABS: Hematocrit (blood only) 30.1 % (42-52); Hemoglobin 9.8 g/dL (14.0-18.0); Mean Corpuscular Hgb Conc 32.6 g/dL (32-36); Mean Corpuscular Volume 95.3 fL (80-100); RDW Coefficient of Variation 18.5 % (11.5-14.5); RDW Standard Deviation 63.5 fL (36.4-46.3); Red Blood Count 3.16 M/uL (4.7-6.1); White Blood Count 9.51 K/uL (4.8-10.8)
[2019-02-19 07:12] LABS: Eosinophils # (auto) 0.28 K/uL (0-0.5); Eosinophils % (auto) 2.9 %; Immature Granulocytes # (auto) 0.02 K/uL (0.00-0.02); Immature Granulocytes % (auto) 0.2 %; Lymphocytes # (auto) 2.14 K/uL (1.2-3.4); Lymphocytes % (auto) 22.5 %; Mean Platelet Volume 8.5 fL (7.4-10.4); Monocytes # (auto) 0.58 K/uL (0.11-0.59); Monocytes % (auto) 6.1 %; Neutrophils # (auto) 6.49 K/uL (1.4-6.5); Neutrophils % (auto) 68.3 %; Platelet Count 59 K/uL (130-400)
[2019-02-19 07:39] LABS: BUN Creatinine Ratio 15.3 (10-20); Calcium 8.8 mg/dl (8.5-10.1); Creatinine Clr Calc Pharmacy 58.1 ml/min; Est GFR (African American) 54.6; Est GFR (Non-African American) 47.1; Magnesium 1.7 mg/dl (1.8-2.4); Phosphorus 2.7 mg/dl (2.5-4.9); Potassium 3.8 mmol/L (3.5-5.1)
[2019-02-19] MEDS: DULOXETINE HCL 60 MG CAP PO SCH (07:45)
[2019-02-19] MEDS: CALCIUM 600MG + VIT D 400 IU TAB PO SCH (07:45)
[2019-02-19] MEDS: MAGNESIUM OXIDE 400 MG TAB PO SCH (07:46)
[2019-02-19] MEDS: AMLODIPINE BESYLATE 5 MG TAB PO SCH (07:46)
[2019-02-19] MEDS: OXYBUTYNIN CHLORIDE XL 5 MG TABCR PO SCH (07:46)
[2019-02-19] MEDS: ASPIRIN 81 MG ECTAB PO SCH (07:46)
[2019-02-19] MEDS: DIVALPROEX DELAY RELEASE 500 MG TAB PO SCH (07:46)
[2019-02-19] MEDS: OMEGA-3 (PURIFIED FISH OIL) 1 GM CAP PO SCH (07:47)
[2019-02-19] MEDS: ASCORBIC ACID 500 MG TAB PO SCH (07:47)
[2019-02-19] MEDS: CYANOCOBALAMIN 500 MCG TABLET (VITAMIN B-12) PO SCH (07:47)
[2019-02-19] MEDS: predniSONE 5 MG TAB PO SCH (07:47)
[2019-02-19] MEDS: risperiDONE 2 MG TABLET PO SCH (07:47)
[2019-02-19] MEDS: TOCOPHERYL, DL-ALPHA 400 UNITS CAP PO SCH (07:48)
[2019-02-19] MEDS: carvediloL 6.25 MG TAB PO SCH (07:50)
[2019-02-19] MEDS: INSULIN ASPART 100 UNITS/ML 3 ML PEN SC SCH ×2 (08:16→12:17)
[2019-02-19] MEDS ORDERED: MAGNESIUM SULFATE / D5W 1 GM/100 ML BAG IV ONE (09:15)
--- NOTE | 2019-02-19 13:30 | Hospitalist Progress Note ---
Date of Service February 19, 2019 Assessment & Plan (1) Stroke-like symptom: Admitted with slurred speech and altered mental status as per the daughter CT of the head and MRI of the head unremarkable Pelvic ultrasound did not show any significant stenosis Echocardiogram showed no wall motion abnormality Non ischemic stress echo Patient remains very drowsy lethargic-no facial droop Appreciate neurology input and recommendation No more strokelike symptoms and the patient has been eating and drinking normally resolved As per demand from the sister The sister is very anxious and worried about her brother's bipolar conditions According to the sister the patient has been on Depakote thousand milligrams twice daily for bipolar disorder and not for seizure She does not want the medicine to be taken off as this can cause severe bipolar symptoms as per her prior experience She is accepting that these Depakote dose can cause a problem with recurrent pancreatitis She was warned that the pancreatitis could be worse with continuation of these medication In spite of all these warnings she wanted to have this medicine for her brother Intravenous Lamictal has been discontinued and the patient has been put on his Depakote at thousand milligrams twice daily Intravenous antibiotic has been discontinued due to severe drug interaction with Depakote The patient remains otherwise stable He has been feeling a lot better since yesterday Depakote 1000 mg twice daily has been continued Valproic acid level 37 Will discharge home today (2) Altered mental status: Toxic encephalopathy is possively due to valproic acid toxicity, POA History of metabolic encephalopathy secondary to recurrent UTI and other infection No source of infection this time but noted to have mildly elevated valproic acid level Ammonia level is normal Blood and urine cultures have been sent Has been getting empiric antibiotic Rule out any infection before discontinuing antibiotic We will get stool for C. difficile-still not collected Remains pleasantly confused Mental status is much improved today He is back to his baseline No more confusion and has been participating in physical therapy Remains at his baseline-discussed with the sister (3) Valproic acid toxicity: Valproic acid level was elevated at around 123 Could be the cause for mental status changes without any LFTs abnormality Valproic acid level has come down to therapeutic range Appreciate neurology input and recommendation Valproic acid has been changed to Keppra Keppra has been discontinued as of yesterday Depakote is restarted as per instruction by POLinda, the sister Will discuss with POA to reduce the dose of valproate Advised to make an appointment with outpatient psychiatrist to decrease the dose of Depakote if possible GI advised to discontinue Depakote and the neurologist was trying to taper it off with introduction of Keppra but the sister did not agree with that management She was warned against possible recurrent pancreatitis and toxicity with continuing Depakote (4) Abnormal CT of the abdomen: 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 History of pancreatitis recently Doubt any pancreatic abscess GI is on the case Will get MRCP and MRI for further evaluation-likely to be done as an outpatient Will need outpatient GI appointment (PCP will arrange for the referral ) (5) Pancreatitis: Does not have any acute pancreatitis at this time (6) Schizoaffective disorder, bipolar type: Remains stable we will continue current medications No acute symptoms (7) CKD (chronic kidney disease), stage III: Creatinine has been fluctuated (creatinine Baseline between 1.5 to 2) Creatinine 1.6 today Will avoid nephrotoxic agents Check BMP in 1 week (8) Bipolar disorder: Continue current medication Hypomagnesemia Mg replaced Monitor Mg level Other significant medical conditions remained stable DVT prophylaxis: Has thrombocytopenia SCDs CODE STATUS Full Disposition Likely discharge today Follow up with PCP Dr. Dean Subjective Pt was seen and examined. Sitting in bed with no distress Working with occupational therapy by helping him to do his washing Pt said that he much better Denies any chest pain, palpitation, dizziness and SOB Physical Exam Physical Exam: Physical Exam: No acute distress Constitutional: well developed, well nourished and + obese; no acute distress and not ill appearing Eyes: PERRL, conjunctivae normal, anicteric sclerae ENMT: external ear and nose normal, oropharynx normal Neck: trachea midline, no thyromegaly Respiratory: normal respiratory effort; no respiratory distress Auscultation: + diminished lung sounds (Bilaterally and at the bases) Cardiovascular: regular rate and regular rhythm, no murmur Gastrointestinal: abdomen normal to inspection and normal bowel sounds; abdomen not distended Percussion/Palpation: abdomen soft; abdomen nontender Musculoskeletal: No acute arthritis in any of the joints Neurologic: moves all extremities; no focal motor deficits Speech / Cognition: normal speech Motor/Sensory: no tremor Psychiatric: Orientation: alert Affect: euthymic affect Lymphatic: no cervical or axillary lymphadenopathy Extremities: +1 edema Results & Data Vital Signs (Past 12 Hours) Vital Signs Temp Pulse Resp BP Pulse Ox 02/19/19 07:00 36.4 C L 58 L 16 119/66 96 (1) Altered mental status Altered mental status type: unspecified Qualified Code(s): R41.82 - Altered mental status, unspecified (2) Valproic acid toxicity Encounter type: initial encounter Injury intent: accidental or unintentional Qualified Code(s): T42.6X1A - Poisoning by other antiepileptic and sedative- hypnotic drugs, accidental (unintentional), initial encounter
--- NOTE | 2019-02-20 07:53 | Discharge Summary ---
Date of Service February 19, 2019 Admission HPI Per Admitting Provider CHIEF COMPLAINT: Slurred speech, altered mental status. HISTORY OF PRESENT ILLNESS: This is a 53-year-old male with past medical history significant for hypertension, hyperlipidemia, chronic kidney disease stage III, vasculitis, on chronic prednisone therapy, bipolar depression, posttraumatic seizure disorder, chronic thrombocytopenia, right bundle-branch block, history of hyperprolactinemia, dysmetabolic syndrome, prediabetes, sleep apnea, GERD, incontinence of urine, who lives with his sister, presents with slurred speech. The patient was recently in the hospital, was admitted on 11/20/2018 for metabolic encephalopathy, pancreatitis and pneumonia. His hospital stay was complicated with fever, sepsis, bradycardia, he was in the ICU, with UTI with E. coli, treated with Levaquin. His hypotension and bradycardia improved. His encephalopathy improved. Received 2 units of PRBCs during that hospital stay, thought to be secondary to infection and poor nutrition. His hospital stay was also complicated with small-bowel obstruction, but resolved with conservative management and also has pancreatitis and also gallbladder sludge at that time and GI recommended eventual cholecystectomy at that time and to follow up as outpatient. Though he had hyperglycemia, HbA1c was 5.9, thought to be from sepsis and chronic steroid use. Electrolyte abnormality which improved and discharged to rehab on 12/25/2018, went back home on January 14. He lives with his sister and his father. Sister takes care of both of them, and as per sister, his ambulatory status slowly improved. Now, lately he can walk from bed to the bathroom about 175 feet with a walker and assistance. Today when she went to [facility] him breakfast and pills around 10:00 to 10:30 a.m., he seemed confused, he seemed like having slurred speech. Then, speech improved. Then, he fell down. When she checked the blood pressure and sugars, they were running okay. She called the EMS, and because she was worried about recent prolonged hospitalization l with all complications, he was brought in here. By the time he came here, he was out of the window, so stroke alert was not called. The patient can tell his name, difficult to understand his speech, but he is obeying all the commands. He can lift his hands and legs, stick his tongue out, show his teeth, raise brow, can do finger nose test. Denies any complaints, but he also seemed to be bradycardic. He was given atropine by the EMS. Last admission also when he had sepsis, he was having bradycardia. He is on Coreg 12.5 p.o. b.i.d. at home. Blood pressure is somewhat running on the higher side here in the ER. Afebrile. Labs: White count leukopenia. Hemoglobin is stable at 10.7, platelets are 64, his usual range is 60- 100. Creatinine 1.8, close to baseline. Urinalysis was negative. His valproic acid came elevated at [address] of the head was okay. Chest x-ray and femur x-ray was okay. EKG, sinus bradycardia. No change from previous. Resting comfortably. Admission Exam Per Admitting Provider GENERAL: The patient is alert and awake, expressive aphasia and slurred speech. VITAL SIGNS: Temperature 36.6, pulse 52, respiratory rate 17, blood pressure 171/89, oxygen 100% on room air. HEENT: No pallor, no icterus. Pupils equal, round, reactive to light. NECK: No JVD, no neck masses, no carotid bruits. CARDIOVASCULAR: S1, S2 heard. Bradycardia. No murmurs. RESPIRATORY SYSTEM: Normal AP diameter. No accessory muscle use. No wheezing, no crackles. ABDOMEN: Soft, bowel sounds present, nontender. No distention. CENTRAL NERVOUS SYSTEM: Alert and awake. Obeys simple commands. Can lift his arms, can lift his lower extremities. No pronator drift. Coordination of movements normal. Yfikyd-xk-[id number] test normal. EXTREMITIES: No erythema, no edema. Principal Diagnosis Stroke-like symptom Altered mental status Valproic acid toxicity Schizoaffective disorder, bipolar type CKD (chronic kidney disease), stage III Hypomagnesemia Bipolar disorder Pancreatitis Discharge Exam Physical Exam: No acute distress Constitutional: well developed, well nourished and + obese; no acute distress and not ill appearing Eyes: PERRL, conjunctivae normal, anicteric sclerae ENMT: external ear and nose normal, oropharynx normal Neck: trachea midline, no thyromegaly Respiratory: normal respiratory effort; no respiratory distress Auscultation: + diminished lung sounds (Bilaterally and at the bases) Cardiovascular: regular rate and regular rhythm, no murmur Gastrointestinal: abdomen normal to inspection and normal bowel sounds; abdomen not distended Percussion/Palpation: abdomen soft; abdomen nontender Musculoskeletal: No acute arthritis in any of the joints Neurologic: moves all extremities; no focal motor deficits Speech / Cognition: normal speech Motor/Sensory: no tremor Psychiatric: Orientation: alert Affect: euthymic affect Lymphatic: no cervical or axillary lymphadenopathy Extremities: +1 edema Discharge Data Allergies Allergy/AdvReac Type Severity Reaction Status Date / Time furosemide Allergy Intermediate Oral Verified 02/13/19 17:16 solution - rash neomycin Allergy Intermediate Rash Verified 02/13/19 17:16 polymyxin B Allergy Intermediate Rash Verified 02/13/19 17:16 Sulfa (Sulfonamide Allergy Intermediate Bactrim - Verified 02/13/19 17:16 Antibiotics) rash. sulfamethoxazole Allergy Intermediate Rash Verified 02/13/19 17:16 [From Bactrim] trimethoprim [From Bactrim] Allergy Intermediate Rash Verified 02/13/19 17:16 aspirin Allergy Unknown Nothing Verified 02/13/19 17:16 with Aspirin. bacitracin Allergy Unknown Rash Verified 02/13/19 17:16 Cephalosporins Allergy Unknown Unknown Verified 02/13/19 17:16 doxycycline Allergy Unknown ON LIST Verified 02/13/19 17:16 moxifloxacin Allergy Unknown Unverified 12/21/18 12:43 Consultations 02/13/19 18:31 ED Decision to Admit Stat 02/13/19 21:32 Consult Case Management - Discharge Planning Routine 02/14/19 08:00 Consult Neurology Routine 02/14/19 08:54 Consult Gastroenterology Routine Ordered Studies 02/13/19 16:32 CT head/brain wo con Stat 02/13/19 21:32 CT abd pelvis wo con Urgent US carotid doppler BI Routine 02/14/19 00:44 MR angio head wo con Urgent MR brain wo con Routine CT head/brain wo con CLINICAL HISTORY: Slurred speech. Suspected acute stroke. COMPARISON STUDY: MRI study dated 11/23/2018, CT scan of the head dated 11/20/2018 TECHNIQUE: Axial CT of the brain is performed from the vertex to the skull base. IV contrast was not administered for this examination. A dose lowering technique was utilized adhering to the principles of ALARA. CT DOSE: 1547.15 mGy.cm FINDINGS: No intra or extra-axial mass lesions are visualized. There is no CT evidence of acute cortical infarction. There is no evidence of midline shift. There is no acute hemorrhage. No calvarial fractures are visualized. There are minimal white matter hypodensities likely on a small vessel basis. Minor ventricular prominence is felt to be secondary to volume loss There is no evidence of acute sinusitis IMPRESSION: No acute intracranial findings Electronically signed by: Ruben Delgadillo M.D. 02/13/2019 4:46 PM Dictated: 02/13/19 1645 Transcribed: 02/13/19 164 XR chest 1V portable CLINICAL HISTORY: Altered level of consciousness. COMPARISON STUDY: 12/12/2018 FINDINGS: The heart is enlarged. There is mild central vascular prominence. There are low lung volumes. There is no lobar consolidation. There are no significant pleural effusions. Advanced chronic arthritic changes about both shoulders with chronic subluxations.[ IMPRESSION: 1. Suboptimal inspiration 2. Mild cardiomegaly with suspected mild central pulmonary vascular congestion 3. No evidence of lobar consolidation Electronically signed by: Ruben Delgadillo M.D. 02/13/2019 6:01 PM Dictated: 02/13/19 1754 Transcribed: 02/13/191754 XR femur RT 2V routine CLINICAL HISTORY: Right femur pain status post trauma COMPARISON: KUB dated 12/01/2018 DISCUSSION: There is an old posttraumatic deformity of the femur. 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 There is superior subluxation of the femur. There is periosteal thickening involving the proximal femur. No acute fractures are visualized. 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 No acute fractures identified Electronically signed by: Ruben Delgadillo M.D. 02/13/2019 6:20 PM Dictated: 02/13/191816 Transcribed: 02/13/191816 CT SCAN OF THE ABDOMEN AND PELVIS WITHOUT CONTRAST CLINICAL HISTORY: Abdominal pain GALLBLADDER DISEASE COMPARISON STUDY: 11/20/2018 TECHNIQUE: CT scan of the abdomen and pelvis was performed from the lung bases to the proximal femurs. Images are reviewed in the axial, sagittal, and coronal planes. IV contrast was not administered for this examination. A dose lowering technique was utilized adhering to the principles of ALARA. CT DOSE: 1553.15 mGy.cm FINDINGS: Lower chest: There are moderate coronary artery calcifications. There are mild dependent atelectatic changes. Liver: The unenhanced liver is normal in size, contour, and attenuation. There is no intrahepatic biliary ductal dilatation. Gallbladder: Unremarkable. Spleen: Normal in size and attenuation. Pancreas: The pancreatic distal body and tail is enlarged with a fusiform 56 mm hypodense area. Evaluation is limited given the noncontrast nature of the examination but this may indicate pancreatic necrosis given the prior history of pancreatitis. Adrenal glands: Unremarkable. Kidneys: No renal, ureteral, or bladder calculi are visualized. Bowel: There are no transition zone to indicate bowel obstruction. There is no evidence of acute diverticulitis. There is scattered stool throughout the colon. The appendix appears normal. Peritoneum: There is no intraperitoneal free air or abdominal ascites. Vasculature: The abdominal aorta is normal in course and caliber. Adenopathy: None. Pelvic viscera: The bladder, and pelvic viscera are unremarkable. Skeletal structures: There is a chronic right hip deformity with superior subluxation and distraction of the femoral head. IMPRESSION: 1. Examination limited due to the lack of intravenous contrast 2. No evidence of bowel obstruction. No evidence of free air 3. Normal appendix. No evidence of acute diverticulitis 4. No renal, ureteral, or bladder calculi identified 5. Abnormal distal pancreatic body and tail which is enlarged containing a fusiform 5.6 cm in length hypodense area. Given the history of prior pancreatitis, this may represent an area of pancreatic necrosis. There are no air bubbles to indicate a pancreatic abscess. Electronically signed by: Ruben Delgadillo M.D. 02/13/2019 10:37 PM Dictated: 02/13/192229 Transcribed: 02/13/192236 CAROTID ARTERY ULTRASOUND CLINICAL HISTORY: cva? COMPARISON STUDY: None. TECHNIQUE: Real-time, grayscale, and color Doppler sonography of the carotid and vertebral arteries was performed. Images were viewed in the transverse and longitudinal planes. FINDINGS: There is mild atherosclerotic plaque. Velocity measurements are listed below. COMMON CAROTID PEAK SYSTOLIC VELOCITY (CM/S): RIGHT 86 LEFT 81 ICA PEAK SYSTOLIC VELOCITY (CM/S): RIGHT 47 LEFT 65 Systolic ratios between the internal to common carotid arteries were normal. Antegrade flow is seen in the vertebral arteries. The external carotid arteries are patent. Blood pressure was not obtained in this patient. IMPRESSION: No evidence of a hemodynamically significant stenosis. Electronically signed by: José Manuel Schmitz M.D. 02/14/2019 6:37 AM Dictated: 10/04/19 0635 Transcribed: 02/14/19634 MRI OF THE BRAIN WITHOUT IV CONTRAST CLINICAL HISTORY: Strokelike symptoms. Slurred speech. COMPARISON STUDY: CT of the brain dated 02/13/2019. TECHNIQUE: MRI of the brain was performed utilizing various T1 and T2-weighted sequences in the axial, sagittal, and coronal planes. IV contrast was not administered for this examination. The examination is degraded by motion a rtifact. FINDINGS: Brain parenchyma: There is age advanced involutional change noting minimal subcortical and periventricular microangiopathic disease. There is no hemorrhage or mass effect. There is no restricted diffusion to suggest acute ischemia. Nguyen-white matter differentiation is preserved. No extra-axial fluid collection is seen. The cerebellar tonsils are normal in configuration. The hippocampi are normal and symmetric. Ventricles, sulci, and cisterns: Prominent secondary to involutional change. Pituitary and sella: Unremarkable. Intracranial vasculature: Normal flow voids are maintained at the skull base. Orbits: The bony orbits are grossly intact. Orbital contents are normal in appearance noting bilateral ocular lens implants. Sinuses and mastoids: There is trace mucosal thickening in the right maxillary antrum. The remaining paranasal sinuses are clear. The mastoid air cells are well pneumatized. Calvarium: Unremarkable. Cervical cord: Partially visualized cervical spinal cord is normal in morphology and signal intensity. IMPRESSION: No acute intracranial abnormality is identified. Electronically signed by: Charlie Milligan M.D. 02/14/2019 7:37 AM Dictated: 02/14/19 0708 Transcribed: 02/14/1908 MRA OF THE INTRACRANIAL CIRCULATION WITHOUT CONTRAST CLINICAL HISTORY: cva? COMPARISON STUDY: Head CT February 13, 2019. TECHNIQUE: Utilizing a 1.5 Tamar magnet and 3-D [id number] technique, unenhanced MRA of the intracranial circulation was obtained. FINDINGS: Please note that the MRI of the brain will be reported separately. This exam is compromised by motion artifact. Sensitivity for detection of small aneurysms is diminished on this exam but none are identified. No abrupt vessel cut off is identified. The bilateral M1, M2, A1 and A2 segments are patent. The left vertebral artery is dominant. The right vertebral artery is likely hypoplastic but is patent. There is persistence of the right posterior cerebral artery. There is mild stenosis of the left posterior cerebral artery. IMPRESSION: 1. No intracranial aneurysm or abrupt vessel cut off although exam compromised by motion artifact. 2. persistence of the right posterior cerebral artery. Electronically signed by: José Manuel Schmitz M.D. 02/14/2019 6:40 AM Dictated: 02/14/19636 Transcribed: 02/14/19636 Hospital Course (1) Stroke-like symptom: Admitted with slurred speech and altered mental status as per the daughter CT of the head and MRI of the head unremarkable Pelvic ultrasound did not show any significant stenosis Echocardiogram showed no wall motion abnormality Non ischemic stress echo Patient remains very drowsy lethargic-no facial droop Appreciate neurology input and recommendation No more strokelike symptoms and the patient has been eating and drinking normally resolved As per demand from the sister The sister is very anxious and worried about her brother's bipolar conditions According to the sister the patient has been on Depakote thousand milligrams twice daily for bipolar disorder and not for seizure She does not want the medicine to be taken off as this can cause severe bipolar symptoms as per her prior experience She is accepting that these Depakote dose can cause a problem with recurrent pancreatitis She was warned that the pancreatitis could be worse with continuation of these medication In spite of all these warnings she wanted to have this medicine for her brother Intravenous Lamictal has been discontinued and the patient has been put on his Depakote at thousand milligrams twice daily Intravenous antibiotic has been discontinued due to severe drug interaction with Depakote The patient remains otherwise stable He has been feeling a lot better since yesterday Depakote 1000 mg twice daily has been continued Valproic acid level 37 Will discharge home today (2) Altered mental status: Toxic encephalopathy is possively due to valproic acid toxicity, POA History of metabolic encephalopathy secondary to recurrent UTI and other infection No source of infection this time but noted to have mildly elevated valproic acid level Ammonia level is normal Blood and urine cultures have been sent Has been getting empiric antibiotic Rule out any infection before discontinuing antibiotic We will get stool for C. difficile-still not collected Remains pleasantly confused Mental status is much improved today He is back to his baseline No more confusion and has been participating in physical therapy Remains at his baseline-discussed with the sister (3) Valproic acid toxicity: Valproic acid level was elevated at around 123 Could be the cause for mental status changes without any LFTs abnormality Valproic acid level has come down to therapeutic range Appreciate neurology input and recommendation Valproic acid has been changed to Keppra Keppra has been discontinued as of yesterday Depakote is restarted as per instruction by POA, the sister Will discuss with POA to reduce the dose of valproate Advised to make an appointment with outpatient psychiatrist to decrease the dose of Depakote if possible GI advised to discontinue Depakote and the neurologist was trying to taper it off with introduction of Keppra but the sister did not agree with that management She was warned against possible recurrent pancreatitis and toxicity with continuing Depakote (4) Abnormal CT of the abdomen: 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 History of pancreatitis recently Doubt any pancreatic abscess GI is on the case Will get MRCP and MRI for further evaluation-likely to be done as an outpatient Will need outpatient GI appointment (PCP will arrange for the referral ) (5) Pancreatitis: Does not have any acute pancreatitis at this time (6) Schizoaffective disorder, bipolar type: Remains stable we will continue current medications No acute symptoms (7) CKD (chronic kidney disease), stage III: Creatinine has been fluctuated (creatinine Baseline between 1.5 to 2) Creatinine 1.6 today Will avoid nephrotoxic agents Check BMP in 1 week (8) Bipolar disorder: Continue current medication Hypomagnesemia Mg replaced Monitor Mg level Other significant medical conditions remained stable DVT prophylaxis: Has thrombocytopenia SCDs CODE STATUS Full Disposition Likely discharge today Follow up with PCP Dr. Dean Total Time Total Time Spent Total Time Spent (In Minutes): 35 minutes Total Time Includes: Examination of the Patient, Discharge Planning, Medication Reconciliation, Communication With Other Providers and Other Discharge Plan Discharge Items Patient Disposition: Home - Home Health Services Reason For Visit: AMS,SLURRED SPEECH Discharge Diagnosis: Stroke-like symptom Altered mental status Valproic acid toxicity Schizoaffective disorder, bipolar type CKD (chronic kidney disease), stage III Hypomagnesemia Activity: Resume your previous activity Activity Comment: as tolerated Non-emergency contact: Primary Care Provider, Chalk Cutter and Neurologist Call non-emergency contact if: you have any medication questions and your temperature is above 101 Follow-up/Referrals: PCP,NO [Primary Care Provider] - Diet: Carb Consistent or DM2 Addtl Attending Provider Instructions: Follow up with your primary care provider Dr. Dean on 10/14 @ 2:45 PM Follow up with neurology (Please schedule follow up appointment with your neurology) Follow up with Gastroenterology to evaluate the pancreatic abnormality finding on the CT scan (Your physician will arrange for the referral ) Continue physical and occupational therapy Fall precaution Check BMP and magnesium level within 1 week to monitor electrolytes and kidney function Monitor your blood pressure Pending Studies at Discharge: No Stand-Alone Forms: My [facility] Medications and DC Order Prescriptions: New aspirin [Ecotrin Low Strength] 81 mg Tablet,Delayed Release (Dr/Ec) 81 mg PO QAM 30 Days Qty: 30 RF: 0 magnesium oxide 400 mg (241.3 mg magnesium) Tablet 400 mg PO BID 30 Days Qty: 60 RF: 0 amlodipine 10 mg tablet 10 mg PO DAILY Qty: 30 RF: 0 Continued duloxetine [Cymbalta] 60 mg Capsule,Delayed Release(Dr/Ec) 60 mg PO DAILY RF: 0 calcium carbonate-vitamin D3 [Calcium 600 + D(3)] 600 mg(1,500mg) -400 unit Tablet 1 tab PO DAILY RF: 0 ascorbic acid (vitamin C) [Vitamin C] 1,000 mg Tablet 1 g PO DAILY RF: 0 carvedilol 6.25 mg Tablet 12.5 mg PO BID RF: 0 oxybutynin chloride 10 mg Tablet Extended Release 24hr 10 mg PO DAILY RF: 0 risperidone 2 mg Tablet 2 mg PO BID RF: 0 levothyroxine 125 mcg Tablet 125 mcg PO DAILY RF: 0 prednisone 5 mg Tablet 5 mg PO DAILY RF: 0 Detrol LA 4 mg 4 mg PO DAILY RF: 0 divalproex 500 mg tablet,delayed release (DR/EC) 1,000 mg PO BID RF: 0 cyanocobalamin (vitamin B-12) [Vitamin B-12] 1,000 mcg Tablet 1,000 mcg PO DAILY RF: 0 ranitidine HCl 150 mg tablet 150 mg PO HS RF: 0 vitamin E 400 unit Capsule 400 unit PO DAILY RF: 0 omega 2-kft-xam-fish oil [Fish Oil] 1,000 mg (120 mg-180 mg) Capsule 1,000 mg PO DAILY RF: 0 Discharge Orders: Discharge Order (Routine); Ordered 02/19/19 Ordered By: Logan Aparicio Admission Data Admit Date/Time: 02/13/19 20:21 Attending Provider: Logan Aparicio Admit Provider: Rui Rodriguez Primary Care Provider: PCP,NO Other Providers: Tulio Reagan ; Serena Duran ; Daniel Horvath ; Serena Price ; Taye Barba ; Kriss Ivy ; Zack Acevedo ; Maria Roamn ; Georgia Lackey ; Chidi Mathias ; Margi Flores ; Bello Meehan ; Zoila Tracy ; Tigre Beyer ; Jose Rich ; Tonya Oliveira ; Beatriz Renee ; Ghada Medina ; Shawnee Zelaya ; Miko Funes ; Kristyn Leyva Other Interventions: Discharge Summary Assessment (RN) Last Done: 02/19/19 13:39 DC Date/Time DO NOT enter until pt leaves facility: 02/19/19 15:53
== END 2019-02-19 15:53 | disposition home health service (06) | DRG 92 ==
LOC: ED 16:36 → 2S 20:21 → SUATTDRO 20:21 → 2S 21:10 → 2W 02-17 15:48 → 4W 02-18 01:37

== ENCOUNTER 2019-06-02 12:53 | Inpatient (IN) ==
--- NOTE | 2019-06-02 13:41 | Emergency Department Note ---
ED Visit Note I saw this patient in conjunction with Dr. Gilliam, and agree with the impression and assessment as outlined in his documentation. For all pertinent details and findings related to this patient's care please see his documentation.. Resident Activity Tracking Resident Involvement: Resident Care Provided Care Provided: Adult ED
--- NOTE | 2019-06-02 14:05 | Emergency Department Note ---
Entered by Hattie Vela acting as a scribe for Didier Gilliam DO History of Present Illness General Chief complaint: Fall Time Seen by Provider: 06/02/19 13:08 Source: patient Mode of arrival: EMS Limitations: other (poor historian) History of Present Illness Provider complaint: Fall Onset (ago): hour(s) (today) Severity: similar to prior episodes Pain Consistency: + other (episode) Maximum Pain Intensity: 0 Quality: + other (fall) Treatments prior to arrival: none The patient is a 53 year old male with a history of schizoaffective disorder bipolar type, pancreatitis, hip joint prosthesis removal, stage III CKD, hyperlipidemia, hypertension, hypothyroidism, anemia, obstructive sleep apnea, post-traumatic seizures, reflux esophagitis, fasciotomy, and tracheostomy who presents to the Emergency Room with complaints of an episode of a fall occurring today. The patient reports that he fell out of his scooter at home and he cannot stand and walk. He states that he is normally able to do stand and walk without difficulty. He notes that he would like to stay in the hospital because it is "the only place he has felt well." The patient reportedly lives at home with his sister and has suffered multiple falls in the past. HPI somewhat limited secondary to patient being a poor historian. Home Medications Home Medications Medication Instructions Recorded Confirmed Type divalproex 1,000 mg PO BID 02/10/18 06/02/19 History cyanocobalamin (vitamin B-12) 1,000 mcg PO DAILY 04/18/18 06/02/19 History [Vitamin B-12] omega 8-jxk-fds-fish oil [Fish Oil] 1,000 mg PO DAILY 04/18/18 06/02/19 History vitamin E 400 unit PO DAILY 04/18/18 06/02/19 History calcium carbonate-vitamin D3 1 tab PO DAILY 11/20/18 06/02/19 History [Calcium 600 + D(3)] duloxetine [Cymbalta] 60 mg PO DAILY 11/20/18 06/02/19 History ascorbic acid (vitamin C) [Vitamin 1 g PO DAILY 02/13/19 06/02/19 History C] carvedilol 6.25 mg PO BIDM 02/13/19 06/02/19 History levothyroxine 125 mcg PO DAILY 02/13/19 06/02/19 History oxybutynin chloride 10 mg PO DAILY 02/13/19 06/02/19 History prednisone 5 mg PO DAILY 02/13/19 06/02/19 History amlodipine 5 mg PO DAILY 06/02/19 06/02/19 History furosemide 40 mg PO DAILY 06/02/19 06/02/19 History imipramine HCl 50 mg PO TID 06/02/19 06/02/19 History magnesium oxide 400 mg PO BID 06/02/19 06/02/19 History risperidone 1 mg PO TID 06/02/19 06/02/19 History tolterodine 4 mg PO DAILY 06/02/19 06/02/19 History Allergies Allergy/AdvReac Type Severity Reaction Status Date / Time furosemide Allergy Intermediate Oral Verified 06/02/19 14:54 solution - rash neomycin Allergy Intermediate Rash Verified 06/02/19 14:54 polymyxin B Allergy Intermediate Rash Verified 06/02/19 14:54 Sulfa (Sulfonamide Allergy Intermediate Bactrim - Verified 06/02/19 14:54 Antibiotics) rash. sulfamethoxazole Allergy Intermediate Rash Verified 06/02/19 14:54 [From Bactrim] trimethoprim [From Bactrim] Allergy Intermediate Rash Verified 06/02/19 14:54 aspirin Allergy Unknown Nothing Verified 06/02/19 14:54 with Aspirin. 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) Bipolar disorder (Chronic) Chronic pain (Chronic) CKD (chronic kidney disease), stage III (Chronic) Diastolic dysfunction Goiter (Chronic) Hyperlipidemia (Chronic) Hyperprolactinemia (Chronic) Hypertension (Inactive) Hypertension (Chronic) Hypothyroidism (Chronic) ALKA (iron deficiency anemia) (Chronic) JHOANA (obstructive sleep apnea) (Chronic) does not use cpap or bipap Pancreatitis Post-traumatic seizures (Chronic) RBBB (Chronic) Reflux esophagitis (Chronic) Schizoaffective disorder, bipolar type Vasculitis (Chronic) Surgical History History of fasciotomy (Chronic) History of total right hip arthroplasty (Chronic) History of tracheostomy (Chronic) Family History Other Family history unobtainable due to patient's condition Social History Preferred Language: Lao Communication Ability: Unable Personal Care Aid Required: No Beliefs That Will Affect Care: None marital status: Single Current Living Situation: Family Current Living Situation Comment: In a shed at his sister's house Other Information That Helps Us Care for You: No Feels Safe at Home: Yes Safety Concerns: Feels Safe At This Time Smoking Status: Never smoker Second Hand Exposure: No ; Hx Alcohol Use: No Hx Substance Use: No Review of Systems Other (Limited secondary to patient being a poor historian) Physical Exam Vital Signs Vital Signs - 24 hr 06/02/19 13:01 06/02/19 14:47 06/02/19 16:37 Temperature 36.4 C L Temperature Source Oral Pulse Rate 81 Pulse Rate [Apical] 73 74 Respiratory Rate 16 16 19 Respiratory Effort / Characteristics Non-Labored Spontaneous Respiratory Depth Normal Respiratory Pattern Regular Blood Pressure 162/103 H Blood Pressure [Left Arm] 147/110 H 150/97 H Blood Pressure Mean 122 Blood Pressure Mean [Left Arm] 122 114 Pulse Oximetry 91 Oxygen Delivery Method Room Air Sepsis Recent Fever Within 48 Hours No Sepsis New/Unexplained Change in Mental Status No Sepsis Action Taken by Nursing No Action Required CONSTITUTIONAL/VITAL SIGNS: Reviewed / noted above. GENERAL: Non-toxic in appearance. INTEGUMENTARY: Warm, dry, and [place]. HEAD: Normocephalic. EYES: without scleral icterus or trauma. ENT/OROPHARYNX: clear and moist. LYMPHADENOPATHY/NECK: Is supple without lymphadenopathy or meningismus. RESPIRATORY: Lungs clear and equal. CARDIOVASCULAR: Regular rate and rhythm. GI/ABDOMEN: Soft and nontender. No organomegaly or pulsatile mass. No rebound or guarding. Normal bowel sounds. EXTREMITIES: Warm and well perfused. Erythema to the right groin and medial upper thigh. Generalized weakness. BACK: No CVA tenderness. NEUROLOGICAL: Intact without focal deficits. PSYCHIATRIC: normal affect. MUSCULOSKELETAL: Normally developed with good muscle tone. Course Course 1310: At this time the patient was evaluated by the resident, Dr. Miki Hassan. The resident's findings were discussed with me. We discussed a possible treatment plan and differential diagnoses for the patient. 1359: The patient was evaluated in room C7, and a complete history and physical examination were performed. 1547: The resident spoke to the patient's sister at this time. His sister is his power of assistant health educator. He states that the sister noted that the patient has fallen 3 times over the past 24 hours and has become increasingly weak. She would like him to go to a facility like [facility] especially because she had hip surgery a week ago and cannot support him like she normally can. 1600: I spoke to the transplant case manager, and she made a referral to [facility] 1717: The resident reviewed the patient's case with Dr. Scott - Hospitalist. Dr. Scott will evaluate the patient for further management. Administered Medications Discontinued Medications Divalproex Sodium (Depakote Delay Release) 1,000 mg PO NOW ONE Stop: 06/02/19 16:35 Last Admin: 06/02/19 16:58 Dose: 1,000 mg Documented by: [id number] Sodium Chloride (Nss 1000ml) 500 mls @ 999 mls/hr IV .Q31M ONE Stop: 06/02/19 14:36 Last Infusion: 06/02/19 14:59 Dose: 0 mls/hr Documented by: [id number] Admin: 06/02/19 14:29 Dose: 999 mls/hr Documented by: [id number] Clindamycin Phosphate 600 mg/ (Dextrose) 54 mls @ 100 mls/hr IV ONE ONE Stop: 06/02/19 15:00 Last Infusion: 06/02/19 16:03 Dose: 0 mls/hr Documented by: [id number] Admin: 06/02/19 15:26 Dose: 100 mls/hr Documented by: [id number] Medical Decision Making Differential Diagnosis Differential diagnosis: Etiologies such as metabolic, infection, hypo/hyperglycemia, electrolyte abnormalities, cardiac sources, intracerebral event, toxicologic, neurologic, as well as others were entertained. Medical Records Attestation: I reviewed the patient's medical records. Home Medications Current Medication List: was personally reviewed by me Laboratory Data Attestation: I reviewed the patient's lab results. Result diagrams: 06/02/19 14:02 06/02/19 14:02 Lab Results 06/02/19 06/02/19 06/02/19 Range/Units 14:02 14:02 14:02 WBC 2.89 L (4.8-10.8) K/uL RBC 3.20 L (4.7-6.1) M/uL Hgb 9.9 L (14.0-18.0) g/dL Hct 30.9 L (42-52) % MCV 96.6 (80-100) fL MCH 30.9 (25-34) pg MCHC 32.0 (32-36) g/dL RDW Std Deviation 58.1 H (36.4-46.3) fL RDW Coeff of Debra 16.5 H (11.5-14.5) % Plt Count 83 L (130-400) K/uL MPV 9.8 (7.4-10.4) fL Immature Gran % (Auto) 0.7 % Neut % (Auto) 49.2 % Lymph % (Auto) 30.4 % Tama % (Auto) 13.5 % Eos % (Auto) 5.9 % Baso % (Auto) 0.3 % Immature Gran # (Auto) 0.02 (0.00-0.02) K/uL Neut # (Auto) 1.42 (1.4-6.5) K/uL Lymph # (Auto) 0.88 L (1.2-3.4) K/uL Tama # (Auto) 0.39 (0.11-0.59) K/uL Eos # (Auto) 0.17 (0-0.5) K/uL Baso # (Auto) 0.01 (0-0.2) K/uL Sodium 136 (136-145) mmol/L Potassium 4.4 (3.5-5.1) mmol/L Chloride 102 (98-107) mmol/L Carbon Dioxide 32 (21-32) mmol/L Anion Gap 2.0 L (3-11) BUN 30 H (7-18) mg/dl Creatinine 1.52 H (0.6-1.4) mg/dl Est Cr Clr Drug Dosing 62.4 ml/min Est GFR ( Amer) 58.9 Est GFR (Non-Af Amer) 50.8 BUN/Creatinine Ratio 19.5 (10-20) Glucose 112 H (70-99) mg/dl Calcium 11.0 H (8.5-10.1) mg/dl Total Bilirubin 0.5 (0.2-1) mg/dl AST 24 (15-37) U/L ALT 13 (12-78) U/L Alkaline Phosphatase 67 (45-117) U/L Total Protein 6.8 (6.4-8.2) gm/dl Albumin 2.0 L (3.4-5.0) gm/dl Globulin 4.8 H (2.5-4.0) gm/dl Albumin/Globulin Ratio 0.4 L (0.9-2) TSH 10.600 H (0.300-4.500) uIu/ml Free T4 0.95 (0.8-1.6) ng/dl Valproic Acid (50-100) mcg/ml Free Valproic Acid Cancelled Total Valproic Acid Cancelled 06/02/19 Range/Units 14:02 WBC (4.8-10.8) K/uL RBC (4.7-6.1) M/uL Hgb (14.0-18.0) g/dL Hct (42-52) % MCV (80-100) fL MCH (25-34) pg MCHC (32-36) g/dL RDW Std Deviation (36.4-46.3) fL RDW Coeff of Debra (11.5-14.5) % Plt Count (130-400) K/uL MPV (7.4-10.4) fL Immature Gran % (Auto) % Neut % (Auto) % Lymph % (Auto) % Tama % (Auto) % Eos % (Auto) % Baso % (Auto) % Immature Gran # (Auto) (0.00-0.02) K/uL Neut # (Auto) (1.4-6.5) K/uL Lymph # (Auto) (1.2-3.4) K/uL Tama # (Auto) (0.11-0.59) K/uL Eos # (Auto) (0-0.5) K/uL Baso # (Auto) (0-0.2) K/uL Sodium (136-145) mmol/L Potassium (3.5-5.1) mmol/L Chloride (98-107) mmol/L Carbon Dioxide (21-32) mmol/L Anion Gap (3-11) BUN (7-18) mg/dl Creatinine (0.6-1.4) mg/dl Est Cr Clr Drug Dosing ml/min Est GFR ( Amer) Est GFR (Non-Af Amer) BUN/Creatinine Ratio (10-20) Glucose (70-99) mg/dl Calcium (8.5-10.1) mg/dl Total Bilirubin (0.2-1) mg/dl AST (15-37) U/L ALT (12-78) U/L Alkaline Phosphatase (45-117) U/L Total Protein (6.4-8.2) gm/dl Albumin (3.4-5.0) gm/dl Globulin (2.5-4.0) gm/dl Albumin/Globulin Ratio (0.9-2) TSH (0.300-4.500) uIu/ml Free T4 (0.8-1.6) ng/dl Valproic Acid 38 L (50-100) mcg/ml Free Valproic Acid Total Valproic Acid Blood Pressure Blood Pressure Findings: Elevated blood pressure Blood Pressure Disposition: further management by hospitalist MDM Narrative This is a 53-year-old male who presents to the ED from home via ambulance. The patient apparently fell out of his scooter at home. He denies any specific injury but reports significant weakness over the past couple of days. Normally he states that he is able to ambulate and transfer but he has not been able to do so for couple of days. He finally fell today. His exam reveals some mild generalized weakness. He does have erythema in the right groin suggesting a cellulitis. His vital signs reveal hypertension. The patient CBC was unremarkable. BUN is 30 and creatinine is 1.5. The patient was given IV fluids as well as IV clindamycin for his right inner thigh cellulitis. The patient is very weak and has been falling. He will be seen by the hospitalist for further inpatient evaluation and care. We did talk to [facility] about admission there. They prefer that he be observed overnight and then they will make decision tomorrow. Space Impression & Plan Weakness, Cellulitis, Falls Discharge Plan Visit Data Chief Complaint: Fall ED Provider: Didier Gilliam ED Midlevel Provider: Miki Hassan Discharge Problem: Weakness, Cellulitis, Falls Patient Disposition: Admitted As Inpatient The scribe's documentation has been prepared under my direction and personally reviewed by me in its entirety. I confirm that the note above accurately reflects all work, treatment, procedures, and medical decision making performed by me.
[2019-06-02] MEDS ORDERED: SODIUM CHLORIDE 0.9% 1000ML 500 ML IV ONE (14:06)
[2019-06-02] MEDS ORDERED: CLINDAMYCIN 600 MG in DEXTROSE 5% 50 ML IV ONE (14:28)
[2019-06-02 14:38] LABS: BUN Creatinine Ratio 19.5 (10-20); Creatinine Clr Calc Pharmacy 62.4 ml/min; Est GFR (African American) 58.9; Est GFR (Non-African American) 50.8; Potassium 4.4 mmol/L (3.5-5.1)
[2019-06-02 14:43] LABS: Hematocrit (blood only) 30.9 % (42-52); Hemoglobin 9.9 g/dL (14.0-18.0); Mean Corpuscular Hemoglobin 30.9 pg (25-34); Mean Corpuscular Volume 96.6 fL (80-100); Mean Platelet Volume 9.8 fL (7.4-10.4); Platelet Count 83 K/uL (130-400); RDW Coefficient of Variation 16.5 % (11.5-14.5); RDW Standard Deviation 58.1 fL (36.4-46.3); White Blood Count 2.89 K/uL (4.8-10.8)
[2019-06-02 14:48] LABS: Albumin Globulin Ratio 0.4 (0.9-2); Bilirubin,Total 0.5 mg/dl (0.2-1); Globulin 4.8 gm/dl (2.5-4.0); Thyroid Stimulating Hormone 10.6 uIu/ml (0.300-4.500); Total Protein 6.8 gm/dl (6.4-8.2)
[2019-06-02 14:50] LABS: Basophils # (auto) 0.01 K/uL (0-0.2); Basophils % (auto) 0.3 %; Eosinophils # (auto) 0.17 K/uL (0-0.5); Eosinophils % (auto) 5.9 %; Immature Granulocytes # (auto) 0.02 K/uL (0.00-0.02); Immature Granulocytes % (auto) 0.7 %; Lymphocytes # (auto) 0.88 K/uL (1.2-3.4); Lymphocytes % (auto) 30.4 %; Monocytes # (auto) 0.39 K/uL (0.11-0.59); Monocytes % (auto) 13.5 %; Neutrophils # (auto) 1.42 K/uL (1.4-6.5); Neutrophils % (auto) 49.2 %
[2019-06-02 15:01] LABS: T4 Free Thyroxine 0.95 ng/dl (0.8-1.6)
[2019-06-02] MEDS ORDERED: DIVALPROEX DELAY RELEASE 500 MG TAB PO ONE (16:34)
--- NOTE | 2019-06-02 18:17 | History & Physical Report ---
Date of Service June 02, 2019 Assessment & Plan (1) Fall: (2) Generalized weakness: (3) Ambulatory dysfunction: -Admit to [facility] -Patient presenting from home after he fell out of his wheelchair and was unable to stand up off the ground secondary to generalized weakness -In the ED, found to have hypercalcemia -Today [facility] evaluated the patient in the ER who recommends observation overnight with transfer there tomorrow for rehab -PT/OT -Has some lower extremity edema however seems to be a chronic issue, no signs of cellulitis; check lower extremity venous Dopplers (4) Hypercalcemia: -Likely multifactorial secondary to supplements and dehydration -Corrected calcium for hypoalbuminemia 12.6 -Check PTH and vitamin D levels -Hold Lasix, gentle IVF, follow-up labs in a.m. (5) Diastolic dysfunction: -Holding Lasix as above (6) Schizoaffective disorder, bipolar type: -Continue duloxetine, Depakote, Risperdal -Per prior documentation, patient sister states that patient takes Depakote for bipolar, not seizure disorder (7) Vasculitis: -Continue chronic prednisone (8) CKD (chronic kidney disease), stage III: -Baseline creatinine runs in the mid to high ones -Noted to be 1.5 today -Monitor renal functions, avoid nephrotoxic agents when able (9) Hypertension: -BP controlled, continue carvedilol and amlodipine (10) Hypothyroidism: -Continue levothyroxine -Elevated TSH however normal T4 noted (11) DVT prophylaxis: -SQ Lovenox History of Present Illness Chief Complaint: Fall Primary Care Provider: Don Watters MD 53-year-old male presents to the ED for evaluation after suffering a fall at home. Patient reports he fell out of his wheelchair and was unable to get up off the ground due to generalized weakness. Patient presented to the ER for further evaluation. Patient reports he otherwise been feeling well recently. No chest pain or shortness of breath. Denies lightheadedness, dizziness, diaphoresis, syncopal events. No abdominal pain, nausea, vomiting, diarrhea. Denies any other recent illnesses, fevers, chills. Has chronic urinary incontinence which is unchanged from baseline. In the ED, labs show hypercalcemia with corrected calcium 12.6. Other labs unremarkable. Vital signs are stable. Today [facility] evaluated the patient and recommended the patient be observed in the hospital overnight and transferred there tomorrow for rehab. Patient received a dose of IV clindamycin for possible lower extremity cellulitis. Allergies Allergy/AdvReac Type Severity Reaction Status Date / Time furosemide Allergy Intermediate Oral Verified 06/02/19 14:54 solution - rash neomycin Allergy Intermediate Rash Verified 06/02/19 14:54 polymyxin B Allergy Intermediate Rash Verified 06/02/19 14:54 Sulfa (Sulfonamide Allergy Intermediate Bactrim - Verified 06/02/19 14:54 Antibiotics) rash. sulfamethoxazole Allergy Intermediate Rash Verified 06/02/19 14:54 [From Bactrim] trimethoprim [From Bactrim] Allergy Intermediate Rash Verified 06/02/19 14:54 aspirin Allergy Unknown Nothing Verified 06/02/19 14:54 with Aspirin. bacitracin Allergy Unknown Rash Verified 06/02/19 14:54 Cephalosporins Allergy Unknown Unknown Verified 06/02/19 14:54 doxycycline Allergy Unknown ON LIST Verified 06/02/19 14:54 moxifloxacin Allergy Unknown Unverified 06/02/19 14:54 Home Medications Home Medications Medication Instructions Recorded Confirmed Type divalproex 1,000 mg PO BID 02/10/18 06/02/19 History cyanocobalamin (vitamin B-12) 1,000 mcg PO DAILY 04/18/18 06/02/19 History [Vitamin B-12] omega 3-vmi-jpo-fish oil [Fish Oil] 1,000 mg PO DAILY 04/18/18 06/02/19 History vitamin E 400 unit PO DAILY 04/18/18 06/02/19 History calcium carbonate-vitamin D3 1 tab PO DAILY 11/20/18 06/02/19 History [Calcium 600 + D(3)] duloxetine [Cymbalta] 60 mg PO DAILY 11/20/18 06/02/19 History ascorbic acid (vitamin C) [Vitamin 1 g PO DAILY 02/13/19 06/02/19 History C] carvedilol 6.25 mg PO BIDM 02/13/19 06/02/19 History levothyroxine 125 mcg PO DAILY 02/13/19 06/02/19 History oxybutynin chloride 10 mg PO DAILY 02/13/19 06/02/19 History prednisone 5 mg PO DAILY 02/13/19 06/02/19 History amlodipine 5 mg PO DAILY 06/02/19 06/02/19 History furosemide 40 mg PO DAILY 06/02/19 06/02/19 History imipramine HCl 50 mg PO TID 06/02/19 06/02/19 History magnesium oxide 400 mg PO BID 06/02/19 06/02/19 History risperidone 1 mg PO TID 06/02/19 06/02/19 History tolterodine 4 mg PO DAILY 06/02/19 06/02/19 History Past Med/Surg History Medical History 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) Bipolar disorder (Chronic) Chronic pain (Chronic) CKD (chronic kidney disease), stage III (Chronic) Diastolic dysfunction Goiter (Chronic) Hyperlipidemia (Chronic) Hyperprolactinemia (Chronic) Hypertension (Inactive) Hypertension (Chronic) Hypothyroidism (Chronic) ALKA (iron deficiency anemia) (Chronic) JHOANA (obstructive sleep apnea) (Chronic) does not use cpap or bipap Pancreatitis Post-traumatic seizures (Chronic) RBBB (Chronic) Reflux esophagitis (Chronic) Schizoaffective disorder, bipolar type Vasculitis (Chronic) Surgical History History of fasciotomy (Chronic) History of total right hip arthroplasty (Chronic) History of tracheostomy (Chronic) Family History Other Family history unobtainable due to patient's condition Social History Preferred Language: Kyrgyz 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 Scott's addendum for physical exam. Results & Data Vital Signs (Past 12 Hours) Vital Signs Temp Pulse Pulse Resp BP BP Pulse Ox 06/02/19 18:05 87 20 160/99 H 99 06/02/19 16:37 74 19 150/97 H 91 06/02/19 14:47 73 16 147/110 H 06/02/19 13:01 36.4 C L 81 16 162/103 H Laboratory Results Short CBC 06/02/19 Range/Units 14:02 WBC 2.89 L (4.8-10.8) K/uL Hgb 9.9 L (14.0-18.0) g/dL Hct 30.9 L (42-52) % Plt Count 83 L (130-400) K/uL BMP 06/02/19 14:02 Sodium 136 Potassium 4.4 Chloride 102 Carbon Dioxide 32 BUN 30 H Creatinine 1.52 H Glucose 112 H Calcium 11.0 H Liver Function 06/02/19 Range/Units 14:02 Total Bilirubin 0.5 (0.2-1) mg/dl AST 24 (15-37) U/L ALT 13 (12-78) U/L Alkaline Phosphatase 67 (45-117) U/L Albumin 2.0 L (3.4-5.0) gm/dl Code Status & VTE Plan VTE Prophylaxis Plan VTE Prophylaxis will be ordered: Yes Supervising Physician Co-Signing Physician Notes Attending Addendum: care coordinated with JOEL Holt please refer to her notes for full details, I agree with her notes patient seen and examined, records reviewed by myself as well on exam, patient sitting in bed, anxious because of bleeding from his IV site Reassured, IV site addressed and patient became calmer Patient reports he was getting up from the chair, walking to his walker when he suddenly fell on his knees due to generalized weakness He was unable to get up due to generalized weakness On exam, patient is awake, alert, oriented x2, answers most questions ap propriately Denies headache, dizziness, focal weakness or numbness, chest pain, shortness of breath, abdominal pain, problems with urination or bowel movement Denies any pain in his body no other symptoms VS noted and reviewed oriented x 2, not in distress, speaks in sentences with no effort nor accessory muscle use normal rate, regular rhythm, no murmurs clear breath sounds bilaterally non distended, soft, nontender no bipedal edema, erythema, warmth no neuro deficits WBC 2.8 Hg 9.9 Crea 1.52 corrected calcium 12.6 ASSESSMENT AND PLAN GENERALIZED WEAKNESS, AMBULATORY DYSFUNCTION likely from deconditioning, hypercalcemia contributing -- no signs of infection at this time alert, oriented on exam -- arrangements to transition to Rehab underway HYPERCALCEMIA -- PTH normal, Vit D low -- from immobilization? Ca supplement? start IV NSS d/c oral Ca supplement -- monitor Ca level if not improving, will need further work up as outpatient other diagnoses and plan of care as per JOEL Holt's notes Stewart Scott MD
[2019-06-02] MEDS ORDERED: ACETAMINOPHEN 325 MG TAB PO PRN (18:23)
[2019-06-02] MEDS: SODIUM CHLORIDE 0.9% 1000ML 1,000 ML IV SCH (19:15)
[2019-06-02] MEDS: IMIPRAMINE HCL 50 MG TAB PO SCH (20:10)
[2019-06-02] MEDS: DIVALPROEX DELAY RELEASE 500 MG TAB PO SCH (20:10)
[2019-06-02] MEDS: risperiDONE 1 MG TABLET PO SCH (20:10)
--- NOTE | 2019-06-02 21:01 | Ultrasound Report ---
US venous doppler LE BI HISTORY: Pain. Edema. edema COMPARISON STUDY: None. FINDINGS: There is normal compressibility, flow, and augmentation within the bilateral lower extremit y deep venous systems. IMPRESSION: No DVT within the right or left lower extremity. ACT 112: Negative or not required by law. The above report was generated using voice recognition software. It may contain grammatical, syntax or spelling errors. Electronically signed by: Justen Nevarez M.D. 06/02/2019 9:00 PM
[2019-06-03] MEDS: carvediloL 6.25 MG TAB PO SCH ×2 (00:02→16:34)
[2019-06-03 05:56] LABS: Hematocrit (blood only) 29.9 % (42-52); Hemoglobin 9.4 g/dL (14.0-18.0); Mean Corpuscular Hemoglobin 30.3 pg (25-34); Mean Corpuscular Hgb Conc 31.4 g/dL (32-36); Mean Corpuscular Volume 96.5 fL (80-100); RDW Coefficient of Variation 16.6 % (11.5-14.5); RDW Standard Deviation 58.2 fL (36.4-46.3); White Blood Count 2.68 K/uL (4.8-10.8)
[2019-06-03 06:01] LABS: Mean Platelet Volume 8.6 fL (7.4-10.4); Platelet Count 80 K/uL (130-400)
[2019-06-03] MEDS: LEVOTHYROXINE SODIUM 125 MCG TABLET PO SCH (06:22)
[2019-06-03 06:35] LABS: BUN Creatinine Ratio 15.9 (10-20); Calcium 10.4 mg/dl (8.5-10.1); Creatinine Clr Calc Pharmacy 65.8 ml/min; Est GFR (African American) 62.9; Est GFR (Non-African American) 54.3; Potassium 4.2 mmol/L (3.5-5.1)
[2019-06-03] MEDS ORDERED: carvediloL 6.25 MG TAB PO SCH (08:00)
[2019-06-03] MEDS: IMIPRAMINE HCL 50 MG TAB PO SCH ×2 (08:28→13:53)
[2019-06-03] MEDS: OXYBUTYNIN CHLORIDE XL 5 MG TABCR PO SCH (08:28)
[2019-06-03] MEDS: predniSONE 5 MG TAB PO SCH (08:28)
[2019-06-03] MEDS: AMLODIPINE BESYLATE 5 MG TAB PO SCH (08:29)
[2019-06-03] MEDS: DIVALPROEX DELAY RELEASE 500 MG TAB PO SCH ×2 (08:29→20:44)
[2019-06-03] MEDS: TOLTERODINE TARTRATE LA 4 MG CAPCR PO SCH (08:29)
[2019-06-03] MEDS: DULOXETINE HCL 60 MG CAP PO SCH (08:29)
[2019-06-03] MEDS: risperiDONE 1 MG TABLET PO SCH ×2 (08:29→13:53)
[2019-06-03] MEDS: SODIUM CHLORIDE 0.9% 1000ML 1,000 ML IV SCH (08:40)
--- NOTE | 2019-06-03 13:02 | Hospitalist Progress Note ---
Date of Service June 03, 2019 Assessment & Plan (1) Drowsiness: (2) Fall: (3) Generalized weakness: (4) Ambulatory dysfunction: Present to the ER after falling out of his wheelchair Possible related to medication ( Currently on Duloxetine/depakote/risperdal/imipramine/oxybutynin) Sleeping more in the morning Continue PT/OT fall precaution Consider to adjust his psych med (5) Hypercalcemia: Likely multifactorial secondary to supplements and dehydration Calcium on admission 11 PTH wnl and calcium 10.4 today Continue monitor BMP (6) Diastolic dysfunction: No signs of volume overload Will d/c IVF Continue monitor (7) Schizoaffective disorder, bipolar type: On duloxetine, Depakote, Risperdal, Imipramine Will consider psych consult for medication adjustment Might need to decrease Risperdal and imipramine to BID (8) Vasculitis: Continue chronic prednisone (9) CKD (chronic kidney disease), stage III: Baseline creatinine runs in the mid to high ones Creatinine stable Monitor BMP (10) Hypertension: BP controlled continue carvedilol and amlodipine (11) Hypothyroidism: TSH 10 Will increase levothyroxine to 137 mg Check TSH in 4 to 6 weeks (12) DVT prophylaxis: SQ Lovenox Subjective Pt was seen and examined Lying in bed sleeping Pt is very hard t wake up from sleep this morning Every time i shook him he woke up and went back to sleep Nurse said that he woke up to take his meds this morning Physical Exam Physical Exam: General- sleeping Head- atraumatic Eyes- PERRL, EOMI, ENT- oropharynx clear Neck- supple, no JVD Lungs- clear to auscultation Heart- regular rhythm; no murmur Abdomen- normal bowel sounds, soft, nontender Extremities- no calf tenderness, +edema Neuro- move all extremities Skin- warm & dry Results & Data Vital Signs (Past 12 Hours) Vital Signs Temp Pulse Pulse Resp BP Pulse Ox 06/03/19 12:27 69 20 149/89 H 92 06/03/19 07:37 36.9 C 76 18 146/92 H 91
--- NOTE | 2019-06-03 14:58 | Psychiatric Consultation ---
Date of Consultation June 03, 2019 Impression / Recommendations Impression 53-year-old male admitted medically on 06/02/2019 after presenting to the ED s/p fall at home. It was reported that the patient fell out of his scooter and is now experiencing ambulatory dysfunction. Hospital documentation suggests the patient has a psychiatric history of schizoaffective disorder, bipolar type. Psychiatric consultation was requested to evaluate patient for medication adjustments in light of recent sedation. Although patient was alert and oriented on admission, nursing notes from 06/03 suggest the patient has been rather sedated for the duration of the day and minimally arousable to even tactile stimuli. Immediate recommendations regarding potentially sedating psychotropic medications is being requested by the primary team. Initial recommendation, if not already completed, would be to confirm current medication regimen with reliable source (outpatient providers, pharmacy, other medical records), as documentation suggests patient himself is a poor historian. It seems appropriate at this time to hold risperidone until patient is more alert. Although patient's valproic acid level is low at 38 (drawn on 06/02 at 1400, so not true trough level), would suggest consideration of obtaining an ammonia level as hyperammonemia can contribute to sedation/lethargy in individuals taking Depakote. Imipramine is being prescribed by the patient's PCP, and therefore question if it is being utilized for an indication directly related to his psychiatric condition - would defer to primary team, though seems appropriate to hold. No additional recommendations at this time, as documentation suggests patient's current level of sedation is not baseline - and therefore less likely to be related solely to his psychotropic polypharmacy. Dr. Mercedes Rowley was directly involved in review and discussion of the patient's case and participated in medical decision making regarding treatment recommendations. Psych History Identifying Data 53-year-old male admitted medically on 06/02/2019 after presenting to the ED via EMS s/p fall at home. Pt seemed to have been alert in the ED, though reportedly a poor historian. Today, he is reported to be rather sedated. Psychiatric consultation was requested for medication recommendations. History of Present Illness Tigre Becerril is a 53-year-old male admitted medically on 06/02/2019 after presenting to the ED via EMS s/p fall. Pt informed ED staff that he fell out of his scooter while at home, and has suffered ambulatory dysfunction since that time. It seems as though patient was previously able to participate in conversation, but today is more lethargic and minimally responsive to even tactile stimuli. Psychiatric consultation was requested for medication recommendations in light of sedation; as he is on several medications that can contribute to increased sedation. Available external medication records were reviewed, along with previous documentation from this admission. Notes indicate that patient lives at home with his sister, and that prior to this fall he had been ambulating well and denied other concerns. Attempt was made by this provider to meet with the patient to further discuss his case. He was observed to be resting in bed, snoring. He was unresponsive to verbal stimuli, and only minimally responsive to tactile stimuli. Pt did demonstrate awareness of this provider's presence when this provider rubbed his arm; however, he did not open his eyes or respond with any verbal remarks. Attempt to speak with the patient was not successful at this time, and no visitors are present at time of encounter. Past Psychiatric History Current Psychiatric Diagnosis: Schizoaffective disorder, bipolar type - per documented history Outpatient Services: According to external medication records, it appears Dr. Alegre has been prescribing his psychiatric medications. It is not clear what office the patient is being seen at. Allergies Allergy/AdvReac Type Severity Reaction Status Date / Time furosemide Allergy Intermediate Oral Verified 06/02/19 14:54 solution - rash neomycin Allergy Intermediate Rash Verified 06/02/19 14:54 polymyxin B Allergy Intermediate Rash Verified 06/02/19 14:54 Sulfa (Sulfonamide Allergy Intermediate Bactrim - Verified 06/02/19 14:54 Antibiotics) rash. sulfamethoxazole Allergy Intermediate Rash Verified 06/02/19 14:54 [From Bactrim] trimethoprim [From Bactrim] Allergy Intermediate Rash Verified 06/02/19 14:54 aspirin Allergy Unknown Nothing Verified 06/02/19 14:54 with Aspirin. bacitracin Allergy Unknown Rash Verified 06/02/19 14:54 Cephalosporins Allergy Unknown Unknown Verified 06/02/19 14:54 doxycycline Allergy Unknown ON LIST Verified 06/02/19 14:54 moxifloxacin Allergy Unknown Unverified 06/02/19 14:54 Home Medications Home Medications Medication Instructions Recorded Confirmed Type divalproex 1,000 mg PO BID 02/10/18 06/02/19 History cyanocobalamin (vitamin B-12) 1,000 mcg PO DAILY 04/18/18 06/02/19 History [Vitamin B-12] omega 2-bah-zox-fish oil [Fish Oil] 1,000 mg PO DAILY 04/18/18 06/02/19 History vitamin E 400 unit PO DAILY 04/18/18 06/02/19 History calcium carbonate-vitamin D3 1 tab PO DAILY 11/20/18 06/02/19 History [Calcium 600 + D(3)] duloxetine [Cymbalta] 60 mg PO DAILY 11/20/18 06/02/19 History ascorbic acid (vitamin C) [Vitamin 1 g PO DAILY 02/13/19 06/02/19 History C] carvedilol 6.25 mg PO BIDM 02/13/19 06/02/19 History levothyroxine 125 mcg PO DAILY 02/13/19 06/02/19 History oxybutynin chloride 10 mg PO DAILY 02/13/19 06/02/19 History prednisone 5 mg PO DAILY 02/13/19 06/02/19 History amlodipine 5 mg PO DAILY 06/02/19 06/02/19 History furosemide 40 mg PO DAILY 06/02/19 06/02/19 History imipramine HCl 50 mg PO TID 06/02/19 06/02/19 History magnesium oxide 400 mg PO BID 06/02/19 06/02/19 History risperidone 1 mg PO TID 06/02/19 06/02/19 History tolterodine 4 mg PO DAILY 06/02/19 06/02/19 History Personal History Living Arrangements: Home (with sister/POA) Beliefs That Will Affect Care: None Patient History Medical History 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) Bipolar disorder (Chronic) Chronic pain (Chronic) CKD (chronic kidney disease), stage III (Chronic) Diastolic dysfunction Goiter (Chronic) Hyperlipidemia (Chronic) Hyperprolactinemia (Chronic) Hypertension (Inactive) Hypertension (Chronic) Hypothyroidism (Chronic) ALKA (iron deficiency anemia) (Chronic) JHOANA (obstructive sleep apnea) (Chronic) does not use cpap or bipap Pancreatitis Post-traumatic seizures (Chronic) RBBB (Chronic) Reflux esophagitis (Chronic) Schizoaffective disorder, bipolar type Vasculitis (Chronic) Surgical History History of fasciotomy (Chronic) History of total right hip arthroplasty (Chronic) History of tracheostomy (Chronic) Family History Other Family history unobtainable due to patient's condition Social History Preferred Language: Guatemalan Communication Ability: Unable Psychological Science Professor Required: No Beliefs That Will Affect Care: None marital status: Single Current Living Situation: Family Current Living Situation Comment: In a shed at his sister's house Other Information That Helps Us Care for You: No Feels Safe at Home: Yes Safety Concerns: Feels Safe At This Time Smoking Status: Never smoker Second Hand Exposure: No ; Hx Alcohol Use: No Hx Substance Use: No Physical Exam Psychiatric: Orientation: + not alert (sleeping, only minimal response to tactile stimuli ) Apperance: appropriately dressed (in hospital gown) and appeared stated age Obese male, sleeping in bed. Wearing hospital gown. Hair and bowen are short. Level of hygiene and grooming appear adequate. Eye Contact: + poor eye contact (does not open eyes during encounter) Motor Behavior: no abnormal motor movements (sleeping for duration of encounter) Vital Signs (Past 24 Hours): Last Vital Signs Temp 36.9 C 06/03/19 07:37 Pulse 69 06/03/19 12:27 Resp 20 06/03/19 12:27 BP 149/89 H 06/03/19 12:27 Pulse Ox 92 06/03/19 12:27 Review of Systems Pt is unable to participate in ROS at time of encounter due to level of sedation. Results & Data Medications Administered Amlodipine Besylate (Norvasc) 5 mg PO DAILY [facility] Stop: 07/03/19 08:59 Last Admin: 06/03/19 08:29 Dose: 5 mg Documented by: [id number] Carvedilol (Coreg) 6.25 mg PO BIDM [facility] Stop: 07/02/19 23:44 Last Admin: 06/03/19 00:02 Dose: 6.25 mg Documented by: [id number] Divalproex Sodium (Depakote Delay Release) 1,000 mg PO BID [facility] Stop: 07/02/19 20:59 Last Admin: 06/03/19 08:29 Dose: 1,000 mg Documented by: [id number] Admin: 06/02/19 20:10 Dose: 1,000 mg Documented by: [id number] Duloxetine HCl (Cymbalta) 60 mg PO DAILY [facility] Stop: 07/03/19 08:59 Last Admin: 06/03/19 08:29 Dose: 60 mg Documented by: [id number] Sodium Chloride (Nss 1000ml) 1,000 mls @ 80 mls/hr IV .[id number] [facility] Stop: 07/02/19 18:22 Last Admin: 06/03/19 08:40 Dose: 80 mls/hr Documented by: [id number] Infusion: 06/03/19 07:46 Dose: 80 mls/hr Documented by: [id number] Infusion: 06/03/19 06:34 Dose: 80 mls/hr Documented by: [id number] Admin: 06/02/19 19:15 Dose: 80 mls/hr Documented by: [id number] Imipramine HCl (Tofranil) 50 mg PO TID [facility] Stop: 07/02/19 20:59 Last Admin: 06/03/19 13:53 Dose: Not Given Documented by: [id number] Admin: 06/03/19 08:28 Dose: 50 mg Documented by: [id number] Admin: 06/02/19 20:10 Dose: 50 mg Documented by: [id number] Levothyroxine Sodium (Synthroid) 125 mcg PO DAILYBB [facility] Stop: 07/03/19 06:29 Last Admin: 06/03/19 06:22 Dose: 125 mcg Documented by: [id number] Oxybutynin Chloride (Ditropan Xl) 10 mg PO DAILY [facility] Stop: 07/03/19 08:59 Last Admin: 06/03/19 08:28 Dose: 10 mg Documented by: [id number] Prednisone (Prednisone) 5 mg PO DAILY [facility] Stop: 07/03/19 08:59 Last Admin: 06/03/19 08:28 Dose: 5 mg Documented by: [id number] Risperidone (Risperdal) 1 mg PO TID [facility] Stop: 07/02/19 20:59 Last Admin: 06/03/19 13:53 Dose: Not Given Documented by: [id number] Admin: 06/03/19 08:29 Dose: 1 mg Documented by: [id number] Admin: 06/02/19 20:10 Dose: 1 mg Documented by: [id number] Tolterodine Tartrate (Detrol La) 4 mg PO DAILY [facility] Stop: 07/03/19 08:59 Last Admin: 06/03/19 08:29 Dose: 4 mg Documented by: [id number] Coding Level of Care Code 91705 [facility] Intl Hosp Care Lvl 1
[2019-06-03] MEDS ORDERED: OLANZapine 10 MG/2.1 ML SDV IM PRN (20:58)
[2019-06-03] MEDS ORDERED: SODIUM CHLORIDE 0.9% 1000ML 1,000 ML IV ONE (21:06)
[2019-06-03 22:15] LABS: Appearance Urine Clear (Clear); Bacteria Urine Automated Negative (Negative); Bilirubin Urine Negative (Negative); Blood Urine Negative (Negative); Cast Urine Automated 0 /lpf (0-5); Color Urine Yellow; Epithelial Cell Urine Auto 0-5 /lpf (0-5); Glucose Urine UA Negative (Negative); Ketones Urine Trace (Negative); Leukocyte Esterase Urine Negative (Negative); Nitrite Urine Negative (Negative); Specific Gravity Urine 1.008 (1.000-1.030); Urobilinogen Urine Negative (Negative); WBC Urine Automated 0 /hpf (0-5); pH Urine 7.5 (4.5-7.5)
[2019-06-03 22:17] LABS: Protein Urine 1+ (Negative)
[2019-06-03 22:18] LABS: Sulfosalicylic Acid Urine Positive (Negative)
[2019-06-04] MEDS: LEVOTHYROXINE SODIUM 125 MCG TABLET PO SCH (05:53)
[2019-06-04] MEDS: AMLODIPINE BESYLATE 5 MG TAB PO SCH (08:05)
[2019-06-04] MEDS: predniSONE 5 MG TAB PO SCH (08:05)
[2019-06-04] MEDS: OXYBUTYNIN CHLORIDE XL 5 MG TABCR PO SCH (08:05)
[2019-06-04] MEDS: DULOXETINE HCL 60 MG CAP PO SCH (08:06)
[2019-06-04] MEDS: TOLTERODINE TARTRATE LA 4 MG CAPCR PO SCH (08:06)
[2019-06-04] MEDS: DIVALPROEX DELAY RELEASE 500 MG TAB PO SCH ×2 (08:06→20:18)
[2019-06-04] MEDS: carvediloL 6.25 MG TAB PO SCH ×2 (08:06→17:11)
--- NOTE | 2019-06-04 14:44 | Hospitalist Progress Note ---
Date of Service June 04, 2019 Assessment & Plan (1) Drowsiness: Metabolic syncopal apathy Likely secondary to polypharmacy Appreciate psychiatry input and recommendation Presently holding of few of antipsychotic medications Plan to restart when he gets better (2) Fall: Due to combination of weakness and ambulatory dysfunction (3) Generalized weakness: (4) Ambulatory dysfunction: Present to the ER after falling out of his wheelchair Possible related to medication ( Currently on Duloxetine/depakote/risperdal/imipramine/oxybutynin) Sleeping more in the morning Continue PT/OT fall precaution Consider to adjust his psych med Appreciate psychiatry input and recommendation (5) Hypercalcemia: Likely multifactorial secondary to supplements and dehydration Calcium on admission 11 PTH wnl and calcium 10.4 today 06/03/2019 (6) Diastolic dysfunction: No signs of volume overload Will d/c IVF Continue monitor (7) Schizoaffective disorder, bipolar type: On duloxetine, Depakote, Risperdal, Imipramine Will consider psych consult for medication adjustment Might need to decrease Risperdal and imipramine to BID Will follow psychiatric recommendation (8) Vasculitis: Continue chronic prednisone (9) CKD (chronic kidney disease), stage III: Baseline creatinine runs in the mid to high ones Creatinine stable Monitor BMP (10) Hypertension: BP controlled continue carvedilol and amlodipine (11) Hypothyroidism: TSH 10 Will increase levothyroxine to 137 mg Check TSH in 4 to 6 weeks (12) DVT prophylaxis: SQ Lovenox Subjective 06/04/2019 Patient is seen and examined in medical floor 53-year-old male with limited ADLs secondary to multiple comorbid conditions including schizoaffective disorder on multiple antipsychotic medications, diastolic dysfunction, CKD, hypertension and hypothyroidism was admitted with generalized weakness, ambulatory dysfunction with falls Remains pleasantly confused today Denies any significant symptoms Feels better since admission Review of Systems Review of Systems: All systems reviewed and are unremarkable except as noted below Neurologic: Alert, awake, pleasantly confused. Generally weak without focal neuro deficit Psychiatric: + difficulty concentrating and + confusion; no paranoia, no hallucinations and no visual hallucinations Physical Exam Physical Exam: Lying in bed with minimal discomfort Constitutional: well developed, well nourished and + obese Eyes: PERRL, conjunctivae normal, anicteric sclerae ENMT: external ear and nose normal, oropharynx normal Neck: trachea midline, no thyromegaly Respiratory: normal respiratory effort; no respiratory distress Auscultation: + diminished lung sounds and + crackles (Minimal crackles at the bases) Cardiovascular: Rate/Rhythm: regular rate and regular rhythm Heart Sounds: no murmur Gastrointestinal (Abdomen): Inspection/Auscultation: + abdomen distended and normal bowel sounds Percussion/Palpation: abdomen soft; abdomen nontender Musculoskeletal: No acute arthritis in any joints Neurologic: moves all extremities; no focal motor deficits Speech / Cognition: + abnormal speech Motor/Sensory: no tremor Psychiatric: Orientation: alert Affect: euthymic affect Mood: + anxious mood; no irritable mood Insight: + poor insight Judgement: + poor judgement Lymphatic: no cervical or axillary lymphadenopathy Results & Data Vital Signs (Past 12 Hours) Vital Signs Temp Pulse Resp BP Pulse Ox 06/04/19 07:37 36.3 C L 75 18 169/91 H 95 Laboratory Results Urine 06/03/19 Range/Units 21:39 Urine Color Yellow Urine Appearance Clear (Clear) Urine pH 7.5 (4.5-7.5) Ur Specific [place] 1.008 (1.000-1.030) Urine Protein 1+ H (Negative) Urine Glucose (UA) Negative (Negative) Medications Administered Current Inpatient Medications Acetaminophen (Tylenol) 650 mg PO Q4H PRN PRN Reason: pain/fever Stop: 07/02/19 18:22 Amlodipine Besylate (Norvasc) 5 mg PO DAILY [facility] Stop: 07/03/19 08:59 Last Admin: 06/04/19 08:05 Dose: 5 mg Documented by: Carvedilol (Coreg) 6.25 mg PO BIDM [facility] Stop: 07/02/19 23:44 Last Admin: 06/04/19 08:06 Dose: 6.25 mg Documented by: Divalproex Sodium (Depakote Delay Release) 1,000 mg PO BID [facility] Stop: 07/02/19 20:59 Last Admin: 06/04/19 08:06 Dose: 1,000 mg Documented by: Duloxetine HCl (Cymbalta) 60 mg PO DAILY [facility] Stop: 07/03/19 08:59 Last Admin: 06/04/19 08:06 Dose: 60 mg Documented by: Imipramine HCl (Tofranil) 50 mg PO TID [facility] Stop: 07/02/19 20:59 Last Admin: 06/03/19 13:53 Dose: Not Given Documented by: Levothyroxine Sodium (Synthroid) 125 mcg PO DAILYBB [facility] Stop: 07/03/19 06:29 Last Admin: 06/04/19 05:53 Dose: 125 mcg Documented by: Miconazole Nitrate (Desenex) 1 appln EXT PRN PRN PRN Reason: Affected Skin Folds Stop: 07/03/19 09:06 Olanzapine (Zyprexa) 2.5 mg IM Q4H PRN PRN Reason: Anxiety/Agitation Stop: 07/03/19 20:57 Last Admin: 06/03/19 21:32 Dose: 2.5 mg Documented by: Oxybutynin Chloride (Ditropan Xl) 10 mg PO DAILY [facility] Stop: 07/03/19 08:59 Last Admin: 06/04/19 08:05 Dose: 10 mg Documented by: Prednisone (Prednisone) 5 mg PO DAILY [facility] Stop: 07/03/19 08:59 Last Admin: 06/04/19 08:05 Dose: 5 mg Documented by: Risperidone (Risperdal) 1 mg PO TID [facility] Stop: 07/02/19 20:59 Last Admin: 06/03/19 13:53 Dose: Not Given Documented by: Tolterodine Tartrate (Detrol La) 4 mg PO DAILY [facility] Stop: 07/03/19 08:59 Last Admin: 06/04/19 08:06 Dose: 4 mg Documented by:
[2019-06-05] MEDS: LEVOTHYROXINE SODIUM 125 MCG TABLET PO SCH (06:15)
[2019-06-05 07:06] LABS: Hematocrit (blood only) 30.4 % (42-52); Hemoglobin 9.8 g/dL (14.0-18.0); Mean Corpuscular Hemoglobin 31.1 pg (25-34); Mean Corpuscular Hgb Conc 32.2 g/dL (32-36); Mean Corpuscular Volume 96.5 fL (80-100); RDW Standard Deviation 60.2 fL (36.4-46.3); Red Blood Count 3.15 M/uL (4.7-6.1); White Blood Count 2.85 K/uL (4.8-10.8)
[2019-06-05 07:31] LABS: Mean Platelet Volume 9.1 fL (7.4-10.4); Platelet Count 77 K/uL (130-400)
[2019-06-05 07:33] LABS: ALC (manual) 0.86 K/uL (1.2-3.4); ANC (manual) 1.44 K/uL (1.4-6.5); Basophils # (manual) 0.03 K/uL (0-0.2); Basophils % (manual) 0.9 %; Eosinophils # (manual) 0.24 K/uL (0-0.5); Eosinophils % (manual) 8.3 %; Lymphocytes # (manual) 0.86 K/uL (1.2-3.4); Lymphocytes % (manual) 30.3 %; Monocytes # (manual) 0.29 K/uL (0.11-0.59); Monocytes % (manual) 10.1 %; Neutrophils # (manual) 1.44 K/uL (1.4-6.5); Neutrophils % (manual) 50.4 %
[2019-06-05 07:44] LABS: BUN Creatinine Ratio 10.8 (10-20); Calcium 10.2 mg/dl (8.5-10.1); Est GFR (African American) 58.5; Est GFR (Non-African American) 50.4; Magnesium 1.9 mg/dl (1.8-2.4); Potassium 4.1 mmol/L (3.5-5.1)
[2019-06-05 07:45] LABS: Phosphorus 2.6 mg/dl (2.5-4.9)
[2019-06-05] MEDS: predniSONE 5 MG TAB PO SCH (08:25)
[2019-06-05] MEDS: carvediloL 6.25 MG TAB PO SCH (08:25)
[2019-06-05] MEDS: OXYBUTYNIN CHLORIDE XL 5 MG TABCR PO SCH (08:25)
[2019-06-05] MEDS: DULOXETINE HCL 60 MG CAP PO SCH (08:25)
[2019-06-05] MEDS: AMLODIPINE BESYLATE 5 MG TAB PO SCH (08:25)
[2019-06-05] MEDS: TOLTERODINE TARTRATE LA 4 MG CAPCR PO SCH (08:26)
[2019-06-05] MEDS: DIVALPROEX DELAY RELEASE 500 MG TAB PO SCH ×2 (08:26→21:13)
[2019-06-05 16:18] LABS: Appearance Urine Clear (Clear); Bacteria Urine Automated Negative (Negative); Bilirubin Urine Negative (Negative); Blood Urine Negative (Negative); Cast Urine Automated 0 /lpf (0-5); Color Urine Yellow; Epithelial Cell Urine Auto 0-5 /lpf (0-5); Glucose Urine UA Negative (Negative); Ketones Urine Negative (Negative); Leukocyte Esterase Urine Negative (Negative); Nitrite Urine Negative (Negative); RBC Urine Automated 0-4 /hpf (0-4); Specific Gravity Urine 1.006 (1.000-1.030); Urobilinogen Urine Negative (Negative); WBC Urine Automated 0 /hpf (0-5); pH Urine 7.5 (4.5-7.5)
[2019-06-05 16:21] LABS: Protein Urine Trace (Negative)
[2019-06-05 16:22] LABS: Sulfosalicylic Acid Urine Positive (Negative)
--- NOTE | 2019-06-05 16:47 | Hospitalist Progress Note ---
Date of Service June 05, 2019 Assessment & Plan (1) Drowsiness: Metabolic encephalopathy Likely secondary to polypharmacy, no signs or source of infection Appreciate psychiatry input and recommendation Presently holding of few of antipsychotic medications Plan to restart when he gets better Much better today and will start risperidone from today (2) Fall: Due to combination of weakness and ambulatory dysfunction We will get PT and OT evaluation (3) Generalized weakness: (4) Ambulatory dysfunction: Present to the ER after falling out of his wheelchair Possible related to medication ( Currently on Duloxetine/depakote/risperdal/imipramine/oxybutynin) Sleeping more in the morning Continue PT/OT fall precaution Consider to adjust his psych med Appreciate psychiatry input and recommendation (5) Hypercalcemia: Likely multifactorial secondary to supplements and dehydration Calcium on admission 11 PTH wnl and calcium 10.4 today 06/03/2019 Calcium is better at 10.2 today Advised to drink more fluid (6) Diastolic dysfunction: No signs of volume overload Will d/c IVF Continue monitor (7) Schizoaffective disorder, bipolar type: On duloxetine, Depakote, Risperdal, Imipramine Will consider psych consult for medication adjustment Might need to decrease Risperdal and imipramine to BID Will follow psychiatric recommendation No acute schizophrenic symptoms (8) Vasculitis: Continue chronic prednisone (9) CKD (chronic kidney disease), stage III: Baseline creatinine runs in the mid to high ones Creatinine stable Monitor BMP -creatinine remains high Advised more oral intake of fluids Monitor PRP (10) Hypertension: BP controlled continue carvedilol and amlodipine (11) Hypothyroidism: TSH 10 Will increase levothyroxine to 137 mg Check TSH in 4 to 6 weeks (12) DVT prophylaxis: SQ Lovenox Discussed with the sister in detail on 06/04/2019 We will keep on discussing with Subjective 06/04/2019 Patient is seen and examined in medical floor 53-year-old male with limited ADLs secondary to multiple comorbid conditions including schizoaffective disorder on multiple antipsychotic medications, diastolic dysfunction, CKD, hypertension and hypothyroidism was admitted with generalized weakness, ambulatory dysfunction with falls Remains pleasantly confused today Denies any significant symptoms Feels better since admission 06/05/2019 Patient was seen and examined in medical floor His confusion is much improved today He communicates with me almost normally Has not been drinking or eating much Denies any significant symptoms Review of Systems Review of Systems: All systems reviewed and are unremarkable except as noted below Neurologic: Alert, awake, pleasantly confused. Generally weak without focal neuro deficit Psychiatric: + difficulty concentrating and + confusion; no paranoia, no hallucinations and no visual hallucinations Physical Exam Physical Exam: Sitting on a chair without any acute distress Constitutional: well developed, well nourished, + ill appearing and + obese; no acute distress Eyes: PERRL, conjunctivae normal, anicteric sclerae ENMT: external ear and nose normal, oropharynx normal Neck: trachea midline, no thyromegaly Respiratory: normal respiratory effort; no respiratory distress Auscult ation: + diminished lung sounds and + crackles (Minimal crackles at the bases) Cardiovascular: Rate/Rhythm: regular rate and regular rhythm Heart Sounds: no murmur Gastrointestinal (Abdomen): Inspection/Auscultation: + abdomen distended and normal bowel sounds Percussion/Palpation: abdomen soft; abdomen nontender Musculoskeletal: Denies any acute pain in any joints Neurologic: moves all extremities; no focal motor deficits Motor/Sensory: no tremor Remains pleasantly confused Psychiatric: Orientation: alert Affect: euthymic affect Mood: + anxious mood; no irritable mood Insight: + poor insight Judgement: + poor judgement Lymphatic: no cervical or axillary lymphadenopathy Results & Data Vital Signs (Past 12 Hours) Vital Signs Temp Pulse Resp BP Pulse Ox 06/05/19 15:35 36.6 C 75 18 166/93 H 92 06/05/19 07:16 36.6 C 66 18 180/68 H 91 Laboratory Results Short CBC 06/05/19 Range/Units 06:35 WBC 2.85 L (4.8-10.8) K/uL Hgb 9.8 L (14.0-18.0) g/dL Hct 30.4 L (42-52) % Plt Count 77 L (130-400) K/uL BMP 06/05/19 06:35 Sodium 139 Potassium 4.1 Chloride 108 H Carbon Dioxide 28 BUN 17 Creatinine 1.53 H Glucose 88 Calcium 10.2 H Urine 06/05/19 Range/Units 16:00 Urine Color Yellow Urine Appearance Clear (Clear) Urine pH 7.5 (4.5-7.5) Ur Specific [place] 1.006 (1.000-1.030) Urine Protein Trace H (Negative) Urine Glucose (UA) Negative (Negative) Medications Administered Current Inpatient Medications Acetaminophen (Tylenol) 650 mg PO Q4H PRN PRN Reason: pain/fever Stop: 07/02/19 18:22 Amlodipine Besylate (Norvasc) 5 mg PO DAILY [facility] Stop: 07/03/19 08:59 Last Admin: 06/05/19 08:25 Dose: 5 mg Documented by: Carvedilol (Coreg) 12.5 mg PO BIDM [facility] Stop: 07/05/19 16:59 Divalproex Sodium (Depakote Delay Release) 1,000 mg PO BID [facility] Stop: 07/02/19 20:59 Last Admin: 06/05/19 08:26 Dose: 1,000 mg Documented by: Duloxetine HCl (Cymbalta) 60 mg PO DAILY [facility] Stop: 07/03/19 08:59 Last Admin: 06/05/19 08:25 Dose: 60 mg Documented by: Imipramine HCl (Tofranil) 50 mg PO TID [facility] Stop: 07/02/19 20:59 Last Admin: 06/03/19 13:53 Dose: Not Given Documented by: [facility]: 07/03/19 06:29 Last Admin: 06/05/19 06:15 Dose: 125 mcg Documented by: Miconazole Nitrate (Desenex) 1 appln EXT PRN PRN PRN Reason: Affected Skin Folds Stop: 07/03/19 09:06 Olanzapine (Zyprexa) 2.5 mg IM Q4H PRN PRN Reason: Anxiety/Agitation Stop: 07/03/19 20:57 Last Admin: 06/03/19 21:32 Dose: 2.5 mg Documented by: Oxybutynin Chloride (Ditropan Xl) 10 mg PO DAILY [facility] Stop: 07/03/19 08:59 Last Admin: 06/05/19 08:25 Dose: 10 mg Documented by: Prednisone (Prednisone) 5 mg PO DAILY [facility] Stop: 07/03/19 08:59 Last Admin: 06/05/19 08:25 Dose: 5 mg Documented by: Risperidone (Risperdal) 1 mg PO TID [facility] Stop: 07/02/19 20:59 Last Admin: 06/03/19 13:53 Dose: Not Given Documented by: Tolterodine Tartrate (Detrol La) 4 mg PO DAILY [facility] Stop: 07/03/19 08:59 Last Admin: 06/05/19 08:26 Dose: 4 mg Documented by:
[2019-06-05] MEDS: carvediloL 12.5 MG TAB PO SCH (17:34)
[2019-06-05] MEDS: POLYETHYLENE (MIRALAX) 17 GM PACK PO PRN (21:12)
[2019-06-05] MEDS: risperiDONE 1 MG TABLET PO SCH (22:00)
[2019-06-06 06:10] LABS: Hematocrit (blood only) 30.2 % (42-52); Hemoglobin 9.6 g/dL (14.0-18.0); Mean Corpuscular Hemoglobin 30.6 pg (25-34); Mean Corpuscular Hgb Conc 31.8 g/dL (32-36); Mean Corpuscular Volume 96.2 fL (80-100); Mean Platelet Volume 8.1 fL (7.4-10.4); Platelet Count 69 K/uL (130-400); RDW Coefficient of Variation 16.9 % (11.5-14.5); RDW Standard Deviation 59.4 fL (36.4-46.3); Red Blood Count 3.14 M/uL (4.7-6.1); White Blood Count 3.31 K/uL (4.8-10.8)
[2019-06-06] MEDS: LEVOTHYROXINE SODIUM 125 MCG TABLET PO SCH (06:17)
[2019-06-06 06:38] LABS: Basophils # (auto) 0.01 K/uL (0-0.2); Basophils % (auto) 0.3 %; Eosinophils # (auto) 0.15 K/uL (0-0.5); Eosinophils % (auto) 4.5 %; Hypochromasia Present; Immature Granulocytes # (auto) 0.02 K/uL (0.00-0.02); Immature Granulocytes % (auto) 0.6 %; Lymphocytes # (auto) 1.49 K/uL (1.2-3.4); Monocytes # (auto) 0.35 K/uL (0.11-0.59); Monocytes % (auto) 10.6 %; Neutrophils # (auto) 1.29 K/uL (1.4-6.5); Polychromasia 1+
[2019-06-06 06:44] LABS: BUN Creatinine Ratio 10.6 (10-20); Calcium 10.1 mg/dl (8.5-10.1); Creatinine Clr Calc Pharmacy 61.2 ml/min; Est GFR (African American) 57.6; Est GFR (Non-African American) 49.7; Magnesium 1.8 mg/dl (1.8-2.4); Potassium 4.1 mmol/L (3.5-5.1)
[2019-06-06] MEDS: DIVALPROEX DELAY RELEASE 500 MG TAB PO SCH ×2 (07:46→20:58)
[2019-06-06] MEDS: carvediloL 12.5 MG TAB PO SCH ×2 (07:46→16:52)
[2019-06-06] MEDS: AMLODIPINE BESYLATE 5 MG TAB PO SCH (07:47)
[2019-06-06] MEDS: TOLTERODINE TARTRATE LA 4 MG CAPCR PO SCH (07:47)
[2019-06-06] MEDS: DULOXETINE HCL 60 MG CAP PO SCH (07:47)
[2019-06-06] MEDS: risperiDONE 1 MG TABLET PO SCH ×3 (07:47→20:57)
[2019-06-06] MEDS: predniSONE 5 MG TAB PO SCH (07:47)
[2019-06-06] MEDS: OXYBUTYNIN CHLORIDE XL 5 MG TABCR PO SCH (07:47)
[2019-06-06] MEDS: MICONAZOLE NITRATE POWDER 43 GM EXT PRN (16:52)
[2019-06-06] MEDS: SODIUM CHLORIDE 0.9% 1000ML 1,000 ML IV SCH (16:59)
--- NOTE | 2019-06-06 16:59 | Hospitalist Progress Note ---
Date of Service June 06, 2019 Assessment & Plan (1) Drowsiness: Metabolic encephalopathy Likely secondary to polypharmacy, no signs or source of infection Appreciate psychiatry input and recommendation Presently holding of few of antipsychotic medications Plan to restart when he gets better Much better today and will start risperidone from today A little better today Not yet to his baseline (2) Fall: Due to combination of weakness and ambulatory dysfunction We will get PT and OT evaluation-requiring maximum assistance to move around (3) Generalized weakness: (4) Ambulatory dysfunction: Present to the ER after falling out of his wheelchair Possible related to medication ( Currently on Duloxetine/depakote/risperdal/imipramine/oxybutynin) Sleeping more in the morning Continue PT/OT fall precaution Consider to adjust his psych med Appreciate psychiatry input and recommendation (5) Hypercalcemia: Likely multifactorial secondary to supplements and dehydration Calcium on admission 11 PTH wnl and calcium 10.4 today 06/03/2019 Calcium is better at 10.2 today Advised to drink more fluid (6) Diastolic dysfunction: No signs of volume overload Will d/c IVF Continue monitor (7) Schizoaffective disorder, bipolar type: On duloxetine, Depakote, Risperdal, Imipramine Will consider psych consult for medication adjustment Might need to decrease Risperdal and imipramine to BID Will follow psychiatric recommendation No acute schizophrenic symptoms (8) Vasculitis: Continue chronic prednisone (9) CKD (chronic kidney disease), stage III: Baseline creatinine runs in the mid to high ones Creatinine has been going up Diuretics are on hold Has been having maximum diuresis at rest Advised to drink more fluid but not been able to do that We will give intravenous fluid Monitor PRP (10) Hypertension: BP controlled continue carvedilol and amlodipine (11) Hypothyroidism: TSH 10 Will increase levothyroxine to 137 mg Check TSH in 4 to 6 weeks (12) DVT prophylaxis: SQ Lovenox Discussed with the sister in detail on 06/04/2019 We will keep on discussing with Subjective 06/04/2019 Patient is seen and examined in medical floor 53-year-old male with limited ADLs secondary to multiple comorbid conditions including schizoaffective disorder on multiple antipsychotic medications, diastolic dysfunction, CKD, hypertension and hypothyroidism was admitted with generalized weakness, ambulatory dysfunction with falls Remains pleasantly confused today Denies any significant symptoms Feels better since admission 06/05/2019 Patient was seen and examined in medical floor His confusion is much improved today He communicates with me almost normally Has not been drinking or eating much Denies any significant symptoms 06/06/2019 The patient was seen and examined in medical floor He remains weak and lethargic denies any other significant symptoms Trying to participate in physical therapy but requiring more assistance Remains pleasantly confused Review of Systems Review of Systems: All systems reviewed and are unremarkable except as noted below Neurologic: Alert, awake, pleasantly confused. Generally weak without focal neuro deficit Psychiatric: + difficulty concentrating and + confusion; no paranoia, no hallucinations and no visual hallucinations Physical Exam Physical Exam: Lying in bed without any acute symptoms Constitutional: well developed, well nourished, + ill appearing and + obese; no acute distress Eyes: PERRL, conjunctivae normal, anicteric sclerae ENMT: external ear and nose normal, oropharynx normal Neck: trachea midline, no thyromegaly Respiratory: normal respiratory effort; no respiratory distress Auscu ltation: + diminished lung sounds Cardiovascular: Rate/Rhythm: regular rate and regular rhythm Heart Sounds: no murmur Extremities: + edema (Minimal edema bilaterally) Gastrointestinal (Abdomen): Inspection/Auscultation: + abdomen distended and normal bowel sounds Percussion/Palpation: abdomen soft; abdomen nontender Neurologic: moves all extremities; no focal motor deficits Speech / Cognition: + abnormal speech Motor/Sensory: no tremor Psychiatric: Orientation: alert Affect: euthymic affect Mood: + anxious mood; no irritable mood Insight: + poor insight Judgement: + poor judgement Lymphatic: no cervical or axillary lymphadenopathy Results & Data Vital Signs (Past 12 Hours) Vital Signs Temp Pulse Resp BP Pulse Ox 06/06/19 14:59 36.4 C L 66 18 121/77 95 06/06/19 06:58 36.6 C 60 18 162/94 H 92 Laboratory Results Short CBC 06/06/19 Range/Units 05:56 WBC 3.31 L (4.8-10.8) K/uL Hgb 9.6 L (14.0-18.0) g/dL Hct 30.2 L (42-52) % Plt Count 69 L (130-400) K/uL BMP 06/06/19 05:56 Sodium 140 Potassium 4.1 Chloride 107 Carbon Dioxide 31 BUN 17 Creatinine 1.55 H Glucose 94 Calcium 10.1 Medications Administered Current Inpatient Medications Acetaminophen (Tylenol) 650 mg PO Q4H PRN PRN Reason: pain/fever Stop: 07/02/19 18:22 Amlodipine Besylate (Norvasc) 5 mg PO DAILY [facility] Stop: 07/03/19 08:59 Last Admin: 06/06/19 07:47 Dose: 5 mg Documented by: Carvedilol (Coreg) 12.5 mg PO BIDM [facility] Stop: 07/05/19 16:59 Last Admin: 06/06/19 16:52 Dose: 12.5 mg Documented by: Divalproex Sodium (Depakote Delay Release) 1,000 mg PO BID [facility] Stop: 07/02/19 20:59 Last Admin: 06/06/19 07:46 Dose: 1,000 mg Documented by: Duloxetine HCl (Cymbalta) 60 mg PO DAILY [facility] Stop: 07/03/19 08:59 Last Admin: 06/06/19 07:47 Dose: 60 mg Documented by: Sodium Chloride (Nss 1000ml) 1,000 mls @ 80 mls/hr IV .[id number] [facility] Stop: 06/08/19 06:29 Imipramine HCl (Tofranil) 50 mg PO TID [facility] Stop: 07/02/19 20:59 Last Admin: 06/03/19 13:53 Dose: Not Given Documented by: Levothyroxine Sodium (Synthroid) 125 mcg PO DAILYBB [facility] Stop: 07/03/19 06:29 Last Admin: 06/06/19 06:17 Dose: 125 mcg Documented by: Miconazole Nitrate (Desenex) 1 appln EXT PRN PRN PRN Reason: Affected Skin Folds Stop: 07/03/19 09:06 Last Admin: 06/06/19 16:52 Dose: 1 appln Documented by: Olanzapine (Zyprexa) 2.5 mg IM Q4H PRN PRN Reason: Anxiety/Agitation Stop: 07/03/19 20:57 Last Admin: 06/03/19 21:32 Dose: 2.5 mg Documented by: Oxybutynin Chloride (Ditropan Xl) 10 mg PO DAILY [facility] Stop: 07/03/19 08:59 Last Admin: 06/06/19 07:47 Dose: 10 mg Documented by: Polyethylene Glycol (Miralax Powder Packet) 17 gm PO DAILY PRN PRN Reason: Constipation Stop: 07/05/19 19:30 Last Admin: 06/05/19 21:12 Dose: 17 gm Documented by: Prednisone (Prednisone) 5 mg PO DAILY [facility] Stop: 07/03/19 08:59 Last Admin: 06/06/19 07:47 Dose: 5 mg Documented by: Risperidone (Risperdal) 1 mg PO TID [facility] Stop: 07/02/19 20:59 Last Admin: 06/06/19 13:42 Dose: 1 mg Documented by: Tolterodine Tartrate (Detrol La) 4 mg PO DAILY [facility] Stop: 07/03/19 08:59 Last Admin: 06/06/19 07:47 Dose: 4 mg Documented by:
[2019-06-07] MEDS: LEVOTHYROXINE SODIUM 125 MCG TABLET PO SCH (05:59)
[2019-06-07] MEDS: SODIUM CHLORIDE 0.9% 1000ML 1,000 ML IV SCH ×3 (05:59→22:09)
[2019-06-07] MEDS: DIVALPROEX DELAY RELEASE 500 MG TAB PO SCH ×2 (07:54→20:16)
[2019-06-07] MEDS: DULOXETINE HCL 60 MG CAP PO SCH (07:54)
[2019-06-07] MEDS: carvediloL 12.5 MG TAB PO SCH ×2 (07:54→17:33)
[2019-06-07] MEDS: OXYBUTYNIN CHLORIDE XL 5 MG TABCR PO SCH (07:55)
[2019-06-07] MEDS: AMLODIPINE BESYLATE 5 MG TAB PO SCH (07:55)
[2019-06-07] MEDS: predniSONE 5 MG TAB PO SCH (07:55)
[2019-06-07] MEDS: risperiDONE 1 MG TABLET PO SCH ×3 (07:56→20:15)
[2019-06-07] MEDS: TOLTERODINE TARTRATE LA 4 MG CAPCR PO SCH (07:56)
[2019-06-07 08:37] LABS: BUN Creatinine Ratio 10.6 (10-20); Calcium 10.3 mg/dl (8.5-10.1); Creatinine Clr Calc Pharmacy 55.5 ml/min; Est GFR (African American) 51.1; Est GFR (Non-African American) 44.1; Magnesium 1.8 mg/dl (1.8-2.4); Phosphorus 3.1 mg/dl (2.5-4.9); Potassium 4.1 mmol/L (3.5-5.1)
--- NOTE | 2019-06-07 13:52 | Hospitalist Progress Note ---
Date of Service June 07, 2019 Assessment & Plan (1) Drowsiness: Metabolic encephalopathy Likely secondary to polypharmacy, no signs or source of infection Appreciate psychiatry input and recommendation Presently holding of few of antipsychotic medications Plan to restart when he gets better Much better today and will start risperidone from today A little better today Not yet to his baseline (2) Fall: Due to combination of weakness and ambulatory dysfunction We will get PT and OT evaluation-requiring maximum assistance to move around (3) Generalized weakness: Remains very weak and lethargic (4) Ambulatory dysfunction: Present to the ER after falling out of his wheelchair Possible related to medication ( Currently on Duloxetine/depakote/risperdal/imip ramine/oxybutynin) Sleeping more in the morning Continue PT/OT fall precaution Consider to adjust his psych med Appreciate psychiatry input and recommendation (5) Hypercalcemia: Likely multifactorial secondary to supplements and dehydration Calcium on admission 11 PTH wnl and calcium 10.4 today 06/03/2019 Calcium is better at 10.2 today Advised to drink more fluid-has not been doing so With increased intravenous fluid (6) Diastolic dysfunction: No signs of volume overload Has been getting intravenous fluid due to dehydration and abnormal kidney function Continue monitor (7) Schizoaffective disorder, bipolar type: On duloxetine, Depakote, Risperdal, Imipramine Will consider psych consult for medication adjustment Might need to decrease Risperdal and imipramine to BID Will follow psychiatric recommendation No acute schizophrenic symptoms (8) Vasculitis: Continue chronic prednisone (9) CKD (chronic kidney disease), stage III: Baseline creatinine runs in the mid to high ones Creatinine has been going up Diuretics are on hold Has been having maximum diuresis at rest Advised to drink more fluid but not been able to do that We will give intravenous fluid Monitor PRP-not any better (10) Hypertension: BP controlled continue carvedilol and amlodipine (11) Hypothyroidism: TSH 10 Will increase levothyroxine to 137 mg Check TSH in 4 to 6 weeks (12) DVT prophylaxis: SQ Lovenox Discussed with the sister in detail on 06/04/2019 Will keep on discussing with the sister Subjective 06/04/2019 Patient is seen and examined in medical floor 53-year-old male with limited ADLs secondary to multiple comorbid conditions including schizoaffective disorder on multiple antipsychotic medications, diastolic dysfunction, CKD, hypertension and hypothyroidism was admitted with generalized weakness, ambulatory dysfunction with falls Remains pleasantly confused today Denies any significant symptoms Feels better since admission 06/05/2019 Patient was seen and examined in medical floor His confusion is much improved today He communicates with me almost normally Has not been drinking or eating much Denies any significant symptoms 06/06/2019 The patient was seen and examined in medical floor He remains weak and lethargic denies any other significant symptoms Trying to participate in physical therapy but requiring more assistance Remains pleasantly confused 06/07/2019 The patient was seen and examined in medical floor He remains weak and lethargic Not on to do things for himself No apparent distress at rest Attending participating in physical Remains pleasantly confused Review of Systems Review of Systems: All systems reviewed and are unremarkable except as noted below Neurologic: Alert, awake, pleasantly confused. Generally weak without focal neuro deficit Psychiatric: + difficulty concentrating and + confusion; no paranoia, no hallucinations and no visual hallucinations Physical Exam Physical Exam: Lying in bed with lethargy Constitutional: well developed, well nourished, + ill appearing and + obese; no acute distress Eyes: PERRL, conjunctivae normal, anicteric sclerae ENMT: external ear and nose normal, oropharynx normal Neck: trachea midline, no thyromegaly Respiratory: normal respiratory effort; no respiratory distress Auscultation: + diminished lung sounds and + crackles (No crackles) Cardiovascular: Rate/Rhythm: regular rate and regular rhythm Heart Sounds: no murmur Extremities: + edema (Minimal edema bilaterally) Gastrointestinal (Abdomen): Inspection/Auscultation: + abdomen distended and normal bowel sounds Percussion/Palpation: abdomen soft; abdomen nontender Neurologic: moves all extremities; no focal motor deficits Speech / Cognition: + abnormal speech Motor/Sensory: no tremor Psychiatric: Orientation: alert Affect: euthymic affect Mood: + anxious mood; no irritable mood Insight: + poor insight Judgement: + poor judgement Lymphatic: no cervical or axillary lymphadenopathy Results & Data Vital Signs (Past 12 Hours) Vital Signs Temp Pulse Resp BP Pulse Ox 06/07/19 08:19 62 06/07/19 07:29 36.4 C L 53 L 18 163/95 H 97 Laboratory Results BMP 06/07/19 07:53 Sodium 141 Potassium 4.1 Chloride 108 H Carbon Dioxide 30 BUN 18 Creatinine 1.71 H Glucose 92 Calcium 10.3 H Medications Administered Current Inpatient Medications Acetaminophen (Tylenol) 650 mg PO Q4H PRN PRN Reason: pain/fever Stop: 07/02/19 18:22 Amlodipine Besylate (Norvasc) 5 mg PO DAILY [facility] Stop: 07/03/19 08:59 Last Admin: 06/07/19 07:55 Dose: 5 mg Documented by: Carvedilol (Coreg) 12.5 mg PO BIDM [facility] Stop: 07/05/19 16:59 Last Admin: 06/07/19 07:54 Dose: 12.5 mg Documented by: Divalproex Sodium (Depakote Delay Release) 1,000 mg PO BID [facility] Stop: 07/02/19 20:59 Last Admin: 06/07/19 07:54 Dose: 1,000 mg Documented by: Duloxetine HCl (Cymbalta) 60 mg PO DAILY [facility] Stop: 07/03/19 08:59 Last Admin: 06/07/19 07:54 Dose: 60 mg Documented by: Sodium Chloride (Nss 1000ml) 1,000 mls @ 125 mls/hr IV .Q8H [facility] Stop: 06/08/19 08:59 Last Infusion: 06/07/19 08:53 Dose: 125 mls/hr Documented by: Imipramine HCl (Tofranil) 50 mg PO TID [facility] Stop: 07/02/19 20:59 Last Admin: 06/03/19 13:53 Dose: Not Given Documented by: Levothyroxine Sodium (Synthroid) 125 mcg PO DAILYBB [facility] Stop: 07/03/19 06:29 Last Admin: 06/07/19 05:59 Dose: 125 mcg Documented by: Miconazole Nitrate (Desenex) 1 appln EXT PRN PRN PRN Reason: Affected Skin Folds Stop: 07/03/19 09:06 Last Admin: 06/06/19 16:52 Dose: 1 appln Documented by: Olanzapine (Zyprexa) 2.5 mg IM Q4H PRN PRN Reason: Anxiety/Agitation Stop: 07/03/19 20:57 Last Admin: 06/03/19 21:32 Dose: 2.5 mg Documented by: Oxybutynin Chloride (Ditropan Xl) 10 mg PO DAILY [facility] Stop: 07/03/19 08:59 Last Admin: 06/07/19 07:55 Dose: 10 mg Documented by: Polyethylene Glycol (Miralax Powder Packet) 17 gm PO DAILY PRN PRN Reason: Constipation Stop: 07/05/19 19:30 Last Admin: 06/05/19 21:12 Dose: 17 gm Documented by: Prednisone (Prednisone) 5 mg PO DAILY [facility] Stop: 07/03/19 08:59 Last Admin: 06/07/19 07:55 Dose: 5 mg Documented by: Risperidone (Risperdal) 1 mg PO TID [facility] Stop: 07/02/19 20:59 Last Admin: 06/07/19 13:03 Dose: 1 mg Documented by: Tolterodine Tartrate (Detrol La) 4 mg PO DAILY [facility] Stop: 07/03/19 08:59 Last Admin: 06/07/19 07:56 Dose: 4 mg Documented by:
[2019-06-08] MEDS: LEVOTHYROXINE SODIUM 125 MCG TABLET PO SCH (05:35)
[2019-06-08] MEDS: AMLODIPINE BESYLATE 5 MG TAB PO SCH (07:40)
[2019-06-08] MEDS: OXYBUTYNIN CHLORIDE XL 5 MG TABCR PO SCH (07:40)
[2019-06-08] MEDS: DULOXETINE HCL 60 MG CAP PO SCH (07:40)
[2019-06-08] MEDS: DIVALPROEX DELAY RELEASE 500 MG TAB PO SCH ×2 (07:41→20:55)
[2019-06-08] MEDS: TOLTERODINE TARTRATE LA 4 MG CAPCR PO SCH (07:41)
[2019-06-08] MEDS: predniSONE 5 MG TAB PO SCH (07:41)
[2019-06-08] MEDS: risperiDONE 1 MG TABLET PO SCH ×3 (07:41→20:55)
[2019-06-08] MEDS: MICONAZOLE NITRATE POWDER 43 GM EXT PRN (07:42)
[2019-06-08] MEDS: carvediloL 12.5 MG TAB PO SCH ×2 (07:43→16:33)
[2019-06-08 10:22] LABS: BUN Creatinine Ratio 9.4 (10-20); Calcium 9.7 mg/dl (8.5-10.1); Creatinine Clr Calc Pharmacy 54.8 ml/min; Est GFR (African American) 50.4; Est GFR (Non-African American) 43.5; Potassium 4.4 mmol/L (3.5-5.1)
[2019-06-08] MEDS: POLYETHYLENE (MIRALAX) 17 GM PACK PO PRN (13:13)
--- NOTE | 2019-06-08 13:16 | Hospitalist Progress Note ---
Date of Service June 08, 2019 Assessment & Plan (1) Drowsiness: Metabolic encephalopathy Likely secondary to polypharmacy, no signs or source of infection Appreciate psychiatry input and recommendation Presently holding of few of antipsychotic medications Respiratory has been restarted Clinically much better today without any confusion (2) Fall: Due to combination of weakness and ambulatory dysfunction We will get PT and OT evaluation-requiring maximum assistance to move around (3) Generalized weakness: Remains very weak and lethargic We will continue PT and OT evaluation (4) Ambulatory dysfunction: Present to the ER after falling out of his wheelchair Possible related to medication ( Currently on Duloxetine/depakote/risperdal/imipramine/oxybutynin) Sleeping more in the morning Continue PT/OT fall precaution Consider to adjust his psych med Appreciate psychiatry input and recommendation Continue PT and OT (5) Hypercalcemia: Likely multifactorial secondary to supplements and dehydration Calcium on admission 11 PTH wnl and calcium 10.4 today 06/03/2019 Calcium is better at 10.2 today Advised to drink more fluid-has not been doing so With increased intravenous fluid Calcium level has been normalized (6) Diastolic dysfunction: No signs of volume overload Has been getting intravenous fluid due to dehydration and abnormal kidney function Continue monitor (7) Schizoaffective disorder, bipolar type: On duloxetine, Depakote, Risperdal, Imipramine Will consider psych consult for medication adjustment Might need to decrease Risperdal and imipramine to BID Will follow psychiatric recommendation No acute schizophrenic symptoms (8) Vasculitis: Continue chronic prednisone (9) CKD (chronic kidney disease), stage III: Baseline creatinine runs in the mid to high ones Creatinine has been going up Diuretics are on hold Has been having maximum diuresis at rest Advised to drink more fluid but not been able to do that We will give intravenous fluid Renal function has been deteriorating (10) Hypertension: BP controlled continue carvedilol and amlodipine Blood pressure is controlled (11) Hypothyroidism: TSH 10 Will increase levothyroxine to 137 mg Check TSH in 4 to 6 weeks (12) DVT prophylaxis: SQ Lovenox Discussed with the sister in detail on 06/04/2019 Will keep on discussing with the sister Subjective 06/04/2019 Patient is seen and examined in medical floor 53-year-old male with limited ADLs secondary to multiple comorbid conditions including schizoaffective disorder on multiple antipsychotic medications, diastolic dysfunction, CKD, hypertension and hypothyroidism was admitted with generalized weakness, ambulatory dysfunction with falls Remains pleasantly confused today Denies any significant symptoms Feels better since admission 06/05/2019 Patient was seen and examined in medical floor His confusion is much improved today He communicates with me almost normally Has not been drinking or eating much Denies any significant symptoms 06/06/2019 The patient was seen and examined in medical floor He remains weak and lethargic denies any other significant symptoms Trying to participate in physical therapy but requiring more assistance Remains pleasantly confused 06/07/2019 The patient was seen and examined in medical floor He remains weak and lethargic Not on to do things for himself No apparent distress at rest Attending participating in physical Remains pleasantly confused 06/08/2019 The patient was seen and examined in medical floor He looks much better today and communicating normally Denies any significant symptoms and willing to participate in physical therapy Advised to drink more fluid which he will try Review of Systems Review of Systems: All systems reviewed and are unremarkable except as noted below Neurologic: Alert, awake, pleasantly confused. Generally weak without focal neuro deficit Psychiatric: no confusion, no paranoia, no hallucinations and no visual hallucinations Physical Exam Physical Exam: Lying on bed without any acute symptoms Constitutional: well developed, well nourished, + ill appearing and + obese; no acute distress Eyes: PERRL, conjunctivae normal, anicteric sclerae ENMT: external ear and nose normal, oropharynx normal Neck: trachea midline, no thyromegaly Respiratory: normal respiratory effort; no respiratory distress Auscultation: lungs clear to auscultation bilaterally and + diminished lung sounds Cardiovascular: Rate/Rhythm: regular rate and regular rhythm Heart Sounds: no murmur Extremities: + edema (Minimal edema bilaterally) Gastrointestinal (Abdomen): Inspection/Auscultation: + abdomen distended and normal bowel sounds Percussion/Palpation: abdomen soft; abdomen nontender Neurologic: moves all extremities; no focal motor deficits Speech / Cognition: + abnormal speech Motor/Sensory: no tremor Psychiatric: Orientation: alert Affect: euthymic affect Mood: + anxious mood; no irritable mood Insight: + poor insight Judgement: + poor judgeme nt Lymphatic: no cervical or axillary lymphadenopathy Results & Data Vital Signs (Past 12 Hours) Vital Signs Temp Pulse Resp BP Pulse Ox 06/08/19 07:00 36.7 C 56 L 18 146/91 H 94 06/08/19 01:16 57 L 145/82 H Laboratory Results BMP 06/08/19 09:39 Sodium 141 Potassium 4.4 Chloride 108 H Carbon Dioxide 29 BUN 16 Creatinine 1.73 H Glucose 161 H Calcium 9.7 Medications Administered Current Inpatient Medications Acetaminophen (Tylenol) 650 mg PO Q4H PRN PRN Reason: pain/fever Stop: 07/02/19 18:22 Amlodipine Besylate (Norvasc) 5 mg PO DAILY [facility] Stop: 07/03/19 08:59 Last Admin: 06/08/19 07:40 Dose: 5 mg Documented by: Carvedilol (Coreg) 12.5 mg PO BIDM [facility] Stop: 07/05/19 16:59 Last Admin: 06/08/19 07:43 Dose: Not Given Documented by: Divalproex Sodium (Depakote Delay Release) 1,000 mg PO BID [facility] Stop: 07/02/19 20:59 Last Admin: 06/08/19 07:41 Dose: 1,000 mg Documented by: Duloxetine HCl (Cymbalta) 60 mg PO DAILY [facility] Stop: 07/03/19 08:59 Last Admin: 06/08/19 07:40 Dose: 60 mg Documented by: Imipramine HCl (Tofranil) 50 mg PO TID [facility] Stop: 07/02/19 20:59 Last Admin: 06/03/19 13:53 Dose: Not Given Documented by: Levothyroxine Sodium (Synthroid) 125 mcg PO DAILYBB [facility] Stop: 07/03/19 06:29 Last Admin: 06/08/19 05:35 Dose: 125 mcg Documented by: Miconazole Nitrate (Desenex) 1 appln EXT PRN PRN PRN Reason: Affected Skin Folds Stop: 07/03/19 09:06 Last Admin: 06/08/19 07:42 Dose: 1 appln Documented by: Olanzapine (Zyprexa) 2.5 mg IM Q4H PRN PRN Reason: Anxiety/Agitation Stop: 07/03/19 20:57 Last Admin: 06/03/19 21:32 Dose: 2.5 mg Documented by: Oxybutynin Chloride (Ditropan Xl) 10 mg PO DAILY [facility] Stop: 07/03/19 08:59 Last Admin: 06/08/19 07:40 Dose: 10 mg Documented by: Polyethylene Glycol (Miralax Powder Packet) 17 gm PO DAILY PRN PRN Reason: Constipation Stop: 07/05/19 19:30 Last Admin: 06/08/19 13:13 Dose: 17 gm Documented by: Prednisone (Prednisone) 5 mg PO DAILY [facility] Stop: 07/03/19 08:59 Last Admin: 06/08/19 07:41 Dose: 5 mg Documented by: Risperidone (Risperdal) 1 mg PO TID [facility] Stop: 07/02/19 20:59 Last Admin: 06/08/19 13:01 Dose: 1 mg Documented by: Tolterodine Tartrate (Detrol La) 4 mg PO DAILY [facility] Stop: 07/03/19 08:59 Last Admin: 06/08/19 07:41 Dose: 4 mg Documented by:
[2019-06-09] MEDS: LEVOTHYROXINE SODIUM 125 MCG TABLET PO SCH (06:07)
[2019-06-09 06:35] LABS: BUN Creatinine Ratio 10.8 (10-20); Calcium 10.3 mg/dl (8.5-10.1); Creatinine Clr Calc Pharmacy 55.5 ml/min; Est GFR (African American) 51.1; Est GFR (Non-African American) 44.1; Magnesium 1.7 mg/dl (1.8-2.4); Phosphorus 3.1 mg/dl (2.5-4.9); Potassium 4.5 mmol/L (3.5-5.1)
[2019-06-09] MEDS: carvediloL 12.5 MG TAB PO SCH ×2 (07:35→16:56)
[2019-06-09] MEDS: OXYBUTYNIN CHLORIDE XL 5 MG TABCR PO SCH (07:36)
[2019-06-09] MEDS: AMLODIPINE BESYLATE 5 MG TAB PO SCH (07:36)
[2019-06-09] MEDS: predniSONE 5 MG TAB PO SCH (07:36)
[2019-06-09] MEDS: risperiDONE 1 MG TABLET PO SCH ×3 (07:36→21:00)
[2019-06-09] MEDS: DIVALPROEX DELAY RELEASE 500 MG TAB PO SCH ×2 (07:36→21:00)
[2019-06-09] MEDS: TOLTERODINE TARTRATE LA 4 MG CAPCR PO SCH (07:36)
[2019-06-09] MEDS: DULOXETINE HCL 60 MG CAP PO SCH (07:37)
[2019-06-09] MEDS: SODIUM CHLORIDE 0.9% 1000ML 1,000 ML IV SCH ×2 (11:30→23:57)
--- NOTE | 2019-06-09 16:31 | Hospitalist Progress Note ---
Date of Service June 09, 2019 Assessment & Plan (1) Drowsiness: Metabolic encephalopathy Likely secondary to polypharmacy, no signs or source of infection Appreciate psychiatry input and recommendation Presently holding of few of antipsychotic medications Respiratory has been restarted Noted to be more confused this morning Acute confusion Seems to be more confused as of this morning Has not been drinking enough fluid Will check Depakote level and will decrease Depakote to 500 mg twice daily for now We will give a small amount of intravenous fluid Check BMP and electrolytes tomorrow (2) Fall: Due to combination of weakness and ambulatory dysfunction We will get PT and OT evaluation-requiring maximum assistance to move around (3) Generalized weakness: Remains very weak and lethargic We will continue PT and OT evaluation Remains weak and lethargic (4) Ambulatory dysfunction: Present to the ER after falling out of his wheelchair Possible related to medication ( Currently on Duloxetine/depakote/risperdal/imipramine/oxybutynin) Sleeping more in the morning Continue PT/OT fall precaution Consider to adjust his psych med Appreciate psychiatry input and recommendation Continue PT and OT (5) Hypercalcemia: Likely multifactorial secondary to supplements and dehydration Calcium on admission 11 PTH wnl and calcium 10.4 today 06/03/2019 Calcium is better at 10.2 today Advised to drink more fluid-has not been doing so With increased intravenous fluid Calcium level has been normalized (6) Diastolic dysfunction: No signs of volume overload Has been getting intravenous fluid due to dehydration and abnormal kidney function Continue monitor Doubt any fluid overload (7) Schizoaffective disorder, bipolar type: On duloxetine, Depakote, Risperdal, Imipramine Will consider psych consult for medication adjustment Might need to decrease Risperdal and imipramine to BID Will follow psychiatric recommendation No acute schizophrenic symptoms (8) Vasculitis: Continue chronic prednisone (9) CKD (chronic kidney disease), stage III: Baseline creatinine runs in the mid to high ones Creatinine has been going up Diuretics are on hold Has been having maximum diuresis at rest Advised to drink more fluid but not been able to do that We will give intravenous fluid Renal function has been deteriorating We will give cautious amount of intravenous fluid to see if BMP improves (10) Hypertension: BP controlled continue carvedilol and amlodipine Blood pressure is controlled (11) Hypothyroidism: TSH 10 Will increase levothyroxine to 137 mg Check TSH in 4 to 6 weeks (12) DVT prophylaxis: SQ Lovenox Discussed with the sister in detail on 06/04/2019 Will keep on discussing with the sister Subjective 06/04/2019 Patient is seen and examined in medical floor 53-year-old male with limited ADLs secondary to multiple comorbid conditions including schizoaffective disorder on multiple antipsychotic medications, diastolic dysfunction, CKD, hypertension and hypothyroidism was admitted with generalized weakness, ambulatory dysfunction with falls Remains pleasantly confused today Denies any significant symptoms Feels better since admission 06/05/2019 Patient was seen and examined in medical floor His confusion is much improved today He communicates with me almost normally Has not been drinking or eating much Denies any significant symptoms 06/06/2019 The patient was seen and examined in medical floor He remains weak and lethargic denies any other significant symptoms Trying to participate in physical therapy but requiring more assistance Remains pleasantly confused 06/07/2019 The patient was seen and examined in medical floor He remains weak and lethargic Not on to do things for himself No apparent distress at rest Attending participating in physical Remains pleasantly confused 06/08/2019 The patient was seen and examined in medical floor He looks much better today and communicating normally Denies any significant symptoms and willing to participate in physical therapy Advised to drink more fluid which he will try 06/09/2019 The patient was seen and examined in medical floor He was noted to have more confusion today Denies any significant symptoms Has not been drinking enough fluid Review of Systems Review of Systems: All systems reviewed and are unremarkable except as noted below Neurologic: Alert, awake, pleasantly confused. Generally weak without focal neuro deficit Physical Exam Physical Exam: Lying in bed without any acute distress Constitutional: well developed, well nourished, + ill appearing and + obese; no acute distress Eyes: PERRL, conjunctivae normal, anicteric sclerae ENMT: external ear and nose normal, oropharynx normal Neck: trachea midline, no thyromegaly Respiratory: normal respiratory effort; no respiratory distress Auscultation: lungs clear to auscultation bilaterally and + diminished lung sounds Cardiovascular: Rate/Rhythm: regular rate and regular rhythm Heart Sounds: no murmur Extremities: + edema (Minimal edema bilaterally) Gastrointestinal (Abdomen): Inspection/Auscultation: + abdomen distended and normal bowel sounds Percussion/Palpation: abdomen soft; abdomen nontender Musculoskeletal: No acute arthritis in any joints Neurologic: moves all extremities; no focal motor deficits Speech / Cognition: + abnormal speech Motor/Sensory: no tremor Psychiatric: Orientation: alert Affect: euthymic affect Mood: + anxious mood; no irritable mood Insight: + poor insight Judgement: + poor judgement Lymphatic: no cervical or axillary lymphadenopathy Results & Data Vital Signs (Past 12 Hours) Vital Signs Temp Pulse Pulse Resp BP Pulse Ox 06/09/19 15:16 36.4 C L 57 L 16 137/80 97 06/09/19 13:05 36.7 C 56 L 16 150/84 H 94 06/09/19 07:30 62 06/09/19 07:00 36.6 C 54 L 18 162/90 H 93 Laboratory Results BMP 06/09/19 05:32 Sodium 143 Potassium 4.5 Chloride 108 H Carbon Dioxide 32 BUN 19 H Creatinine 1.71 H Glucose 96 Calcium 10.3 H Medications Administered Current Inpatient Medications Acetaminophen (Tylenol) 650 mg PO Q4H PRN PRN Reason: pain/fever Stop: 07/02/19 18:22 Amlodipine Besylate (Norvasc) 5 mg PO DAILY [facility] Stop: 07/03/19 08:59 Last Admin: 06/09/19 07:36 Dose: 5 mg Documented by: Carvedilol (Coreg) 12.5 mg PO BIDM [facility] Stop: 07/05/19 16:59 Last Admin: 06/09/19 07:35 Dose: 12.5 mg Documented by: Divalproex Sodium (Depakote Delay Release) 500 mg PO BID [facility] Stop: 07/09/19 20:59 Duloxetine HCl (Cymbalta) 60 mg PO DAILY [facility] Stop: 07/03/19 08:59 Last Admin: 06/09/19 07:37 Dose: 60 mg Documented by: Sodium Chloride (Nss 1000ml) 1,000 mls @ 80 mls/hr IV .[id number] [facility] Stop: 06/11/19 00:29 Last Admin: 06/09/19 11:30 Dose: 80 mls/hr Documented by: Imipramine HCl (Tofranil) 50 mg PO TID [facility] Stop: 07/02/19 20:59 Last Admin: 06/03/19 13:53 Dose: Not Given Documented by: Levothyroxine Sodium (Synthroid) 125 mcg PO DAILYBB [facility] Stop: 07/03/19 06:29 Last Admin: 06/09/19 06:07 Dose: 125 mcg Documented by: Miconazole Nitrate (Desenex) 1 appln EXT PRN PRN PRN Reason: Affected Skin Folds Stop: 07/03/19 09:06 Last Admin: 06/08/19 07:42 Dose: 1 appln Documented by: Olanzapine (Zyprexa) 2.5 mg IM Q4H PRN PRN Reason: Anxiety/Agitation Stop: 07/03/19 20:57 Last Admin: 06/03/19 21:32 Dose: 2.5 mg Documented by: Oxybutynin Chloride (Ditropan Xl) 10 mg PO DAILY [facility] Stop: 07/03/19 08:59 Last Admin: 06/09/19 07:36 Dose: 10 mg Documented by: Polyethylene Glycol (Miralax Powder Packet) 17 gm PO DAILY PRN PRN Reason: Constipation Stop: 07/05/19 19:30 Last Admin: 06/08/19 13:13 Dose: 17 gm Documented by: Prednisone (Prednisone) 5 mg PO DAILY [facility] Stop: 07/03/19 08:59 Last Admin: 06/09/19 07:36 Dose: 5 mg Documented by: Risperidone (Risperdal) 1 mg PO TID [facility] Stop: 07/02/19 20:59 Last Admin: 06/09/19 13:33 Dose: 1 mg Documented by: Tolterodine Tartrate (Detrol La) 4 mg PO DAILY [facility] Stop: 07/03/19 08:59 Last Admin: 06/09/19 07:36 Dose: 4 mg Documented by:
[2019-06-10] MEDS: LEVOTHYROXINE SODIUM 125 MCG TABLET PO SCH (05:56)
[2019-06-10 09:03] LABS: Hematocrit (blood only) 35.8 % (42-52); Hemoglobin 10.8 g/dL (14.0-18.0); Mean Corpuscular Hemoglobin 29.9 pg (25-34); Mean Corpuscular Hgb Conc 30.2 g/dL (32-36); Mean Corpuscular Volume 99.2 fL (80-100); Nucleated RBC # (auto) 0.06 K/uL (0-0); Nucleated RBC % (auto) 1.6 %; RDW Coefficient of Variation 17.6 % (11.5-14.5); Red Blood Count 3.61 M/uL (4.7-6.1); White Blood Count 3.77 K/uL (4.8-10.8)
[2019-06-10] MEDS: DULOXETINE HCL 60 MG CAP PO SCH (09:06)
[2019-06-10] MEDS: carvediloL 12.5 MG TAB PO SCH ×2 (09:06→17:05)
[2019-06-10] MEDS: risperiDONE 1 MG TABLET PO SCH ×3 (09:07→21:00)
[2019-06-10] MEDS: DIVALPROEX DELAY RELEASE 500 MG TAB PO SCH (09:07)
[2019-06-10] MEDS: OXYBUTYNIN CHLORIDE XL 5 MG TABCR PO SCH (09:07)
[2019-06-10] MEDS: predniSONE 5 MG TAB PO SCH (09:07)
[2019-06-10] MEDS: TOLTERODINE TARTRATE LA 4 MG CAPCR PO SCH (09:07)
[2019-06-10] MEDS: AMLODIPINE BESYLATE 5 MG TAB PO SCH (09:08)
[2019-06-10 09:12] LABS: Calcium 10.1 mg/dl (8.5-10.1); Creatinine Clr Calc Pharmacy 57.5 ml/min; Est GFR (African American) 53.4; Magnesium 1.7 mg/dl (1.8-2.4)
[2019-06-10 09:32] LABS: Mean Platelet Volume 9.1 fL (7.4-10.4); Platelet Count 67 K/uL (130-400)
[2019-06-10 09:33] LABS: Basophils # (auto) 0.01 K/uL (0-0.2); Basophils % (auto) 0.3 %; Eosinophils % (auto) 2.7 %; Immature Granulocytes # (auto) 0.05 K/uL (0.00-0.02); Immature Granulocytes % (auto) 1.3 %; Lymphocytes # (auto) 1.48 K/uL (1.2-3.4); Lymphocytes % (auto) 39.3 %; Monocytes # (auto) 0.41 K/uL (0.11-0.59); Monocytes % (auto) 10.9 %; Neutrophils # (auto) 1.72 K/uL (1.4-6.5); Neutrophils % (auto) 45.5 %
--- NOTE | 2019-06-10 10:05 | XRay Report ---
XR chest 1V portable HISTORY: Shortness of breath. COMPARISON: Chest 02/13/2019. FINDINGS: No pneumothorax. There are low lung volumes. The heart remains mildly enlarged. No pleural effusions. No new focal lung consolidations to suggest pneumonia. Advanced degenerative changes withi n the bilateral shoulders are again noted. There is mild central pulmonary vascular congestion withou t overt edema. IMPRESSION: Stable cardiomegaly and mild central pulmonary vascular congestion without overt edema. ACT 112: Negative or not required by law. Electronically signed by: Asad Terrazas M.D. 06/10/2019 10:04 AM
[2019-06-10] MEDS: SODIUM CHLORIDE 0.9% 1000ML 1,000 ML IV SCH (12:08)
--- NOTE | 2019-06-10 13:14 | Internal Medicine Consult Note ---
Date of Consultation June 10, 2019 Assessment & Plan (1) Encounter for rehabilitation evaluation: Complex psychiatric disease in a very debilitated man. I am concerned about his ability to participate. If he has additional clearing and expresses desire to participate in the rehab hospital program; a trial should be considered. History of Present Illness Requesting Physician: High Risk Evaluation for Rehab Hospital Attending Physician: Kristyn Leyva MD History of Present Illness He suffers from complex psychiatric disease. He was admitted with a decline in performance and worsening confusion. His medications have been moderated and psychiatry recommendations noted. He remains confused during by interview. He is anxious to return home. When asked if he would be interested in participating in rehab care at [facility] he expresses a noninterest at this point. My impression is that he is also not able to return home given his current psychological state. The interview was limited given his psychiatric issues. Allergies Allergy/AdvReac Type Severity Reaction Status Date / Time furosemide Allergy Intermediate Oral Verified 06/02/19 14:54 solution - rash neomycin Allergy Intermediate Rash Verified 06/02/19 14:54 polymyxin B Allergy Intermediate Rash Verified 06/02/19 14:54 Sulfa (Sulfonamide Allergy Intermediate Bactrim - Verified 06/02/19 14:54 Antibiotics) rash. sulfamethoxazole Allergy Intermediate Rash Verified 06/02/19 14:54 [From Bactrim] trimethoprim [From Bactrim] Allergy Intermediate Rash Verified 06/02/19 14:54 aspirin Allergy Unknown Nothing Verified 06/02/19 14:54 with Aspirin. bacitracin Allergy Unknown Rash Verified 06/02/19 14:54 Cephalosporins Allergy Unknown Unknown Verified 06/02/19 14:54 doxycycline Allergy Unknown ON LIST Verified 06/02/19 14:54 moxifloxacin Allergy Unknown Unverified 06/02/19 14:54 Home Medications Home Medications Medication Instructions Recorded Confirmed Type divalproex 1,000 mg PO BID 02/10/18 06/02/19 History cyanocobalamin (vitamin B-12) 1,000 mcg PO DAILY 04/18/18 06/02/19 History [Vitamin B-12] omega [id number] oil [Fish Oil] 1,000 mg PO DAILY 04/18/18 06/02/19 History vitamin E 400 unit PO DAILY 04/18/18 06/02/19 History calcium carbonate-vitamin D3 1 tab PO DAILY 11/20/18 06/02/19 History [Calcium 600 + D(3)] duloxetine [Cymbalta] 60 mg PO DAILY 11/20/18 06/02/19 History ascorbic acid (vitamin C) [Vitamin 1 g PO DAILY 02/13/19 06/02/19 History C] carvedilol 6.25 mg PO BIDM 02/13/19 06/02/19 History levothyroxine 125 mcg PO DAILY 02/13/19 06/02/19 History oxybutynin chloride 10 mg PO DAILY 02/13/19 06/02/19 History prednisone 5 mg PO DAILY 02/13/19 06/02/19 History amlodipine 5 mg PO DAILY 06/02/19 06/02/19 History furosemide 40 mg PO DAILY 06/02/19 06/02/19 History imipramine HCl 50 mg PO TID 06/02/19 06/02/19 History magnesium oxide 400 mg PO BID 06/02/19 06/02/19 History risperidone 1 mg PO TID 06/02/19 06/02/19 History tolterodine 4 mg PO DAILY 06/02/19 06/02/19 History Patient History Medical History 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) Bipolar disorder (Chronic) Chronic pain (Chronic) CKD (chronic kidney disease), stage III (Chronic) Diastolic dysfunction Goiter (Chronic) Hyperlipidemia (Chronic) Hyperprolactinemia (Chronic) Hypertension (Inactive) Hypertension (Chronic) Hypothyroidism (Chronic) ALKA (iron deficiency anemia) (Chronic) JHOANA (obstructive sleep apnea) (Chronic) does not use cpap or bipap Pancreatitis Post-traumatic seizures (Chronic) RBBB (Chronic) Reflux esophagitis (Chronic) Schizoaffective disorder, bipolar type Vasculitis (Chronic) Surgical History History of fasciotomy (Chronic) History of total right hip arthroplasty (Chronic) History of tracheostomy (Chronic) Family History Other Family history unobtainable due to patient's condition Social History Preferred Language: Gabonese Communication Ability: Unable Medical Assistant Required: No Beliefs That Will Affect Care: None marital status: Single Current Living Situation: Family Current Living Situation Comment: In a shed at his sister's house Other Information That Helps Us Care for You: No Feels Safe at Home: Yes Safety Concerns: Feels Safe At This Time Smoking Status: Never smoker Second Hand Exposure: No ; Hx Alcohol Use: No Hx Substance Use: No Review of Systems Review of Systems: no new target Physical Exam Physical Exam: Vitals noted HEENT--no acute trauma/change Cardio--no change Resp--nonlabor GI--functional Neuro--no focal changes. Psych--confused thought pattern and difficulty recalling information Results & Data Vital Signs (Past 12 Hours) Vital Signs Temp Pulse Pulse Resp BP Pulse Ox 06/10/19 07:39 36.4 C L 87 16 147/83 H 91 06/10/19 04:43 54 L 16 158/93 H 98
[2019-06-10] MEDS: POLYETHYLENE (MIRALAX) 17 GM PACK PO PRN (13:42)
--- NOTE | 2019-06-10 16:00 | Hospitalist Progress Note ---
Date of Service June 10, 2019 Assessment & Plan (1) Drowsiness: Metabolic encephalopathy Likely secondary to polypharmacy, no signs or source of infection Appreciate psychiatry input and recommendation Presently holding of few of antipsychotic medications Respiratory has been restarted Noted to be more confused this morning Valproic acid level is high at 130 Valproic acid has been on hold The dose of medication has been decreased to 500 twice daily and will start from 06/11/2019 Acute confusion Seems to be more confused as of this morning Has not been drinking enough fluid Will check Depakote level and will decrease Depakote to 500 mg twice daily for now We will give a small amount of intravenous fluid Check BMP and electrolytes tomorrow Creatinine has been improving (2) Fall: Due to combination of weakness and ambulatory dysfunction We will get PT and OT evaluation-requiring maximum assistance to move around (3) Generalized weakness: Remains very weak and lethargic We will continue PT and OT evaluation Remains weak and lethargic (4) Ambulatory dysfunction: Present to the ER after falling out of his wheelchair Possible related to medication ( Currently on Duloxetine/depakote/risperdal/imipramine/oxybutynin) Sleeping more in the morning Continue PT/OT fall precaution Consider to adjust his psych med Appreciate psychiatry input and recommendation Continue PT and OT (5) Hypercalcemia: Likely multifactorial secondary to supplements and dehydration Calcium on admission 11 PTH wnl and calcium 10.4 today 06/03/2019 Calcium is better at 10.2 today Advised to drink more fluid-has not been doing so With increased intravenous fluid Calcium level has been normalized (6) Diastolic dysfunction: No signs of volume overload Has been getting intravenous fluid due to dehydration and abnormal kidney function Continue monitor Doubt any fluid overload Chest x-ray did not show any fluid overload (7) Schizoaffective disorder, bipolar type: On duloxetine, Depakote, Risperdal, Imipramine Will consider psych consult for medication adjustment Might need to decrease Risperdal and imipramine to BID Will follow psychiatric recommendation No acute schizophrenic symptoms (8) Vasculitis: Continue chronic prednisone (9) CKD (chronic kidney disease), stage III: Baseline creatinine runs in the mid to high ones Creatinine has been going up Diuretics are on hold Has been having maximum diuresis at rest Advised to drink more fluid but not been able to do that We will give intravenous fluid Renal function has been deteriorating We will give cautious amount of intravenous fluid to see if BMP improves Renal function is slightly better with creatinine 1.65 as of 06/10/2019 (10) Hypertension: BP controlled continue carvedilol and amlodipine Blood pressure is controlled (11) Hypothyroidism: TSH 10 Will increase levothyroxine to 137 mg Check TSH in 4 to 6 weeks (12) DVT prophylaxis: SQ Lovenox Discussed with the sister in detail on 06/04/2019 Will keep on discussing with the sister-discussed with the sister on 06/10/2019 Subjective 06/04/2019 Patient is seen and examined in medical floor 53-year-old male with limited ADLs secondary to multiple comorbid conditions including schizoaffective disorder on multiple antipsychotic medications, diastolic dysfunction, CKD, hypertension and hypothyroidism was admitted with generalized weakness, ambulatory dysfunction with falls Remains pleasantly confused today Denies any significant symptoms Feels better since admission 06/05/2019 Patient was seen and examined in medical floor His confusion is much improved today He communicates with me almost normally Has not been drinking or eating much Denies any significant symptoms 06/06/2019 The patient was seen and examined in medical floor He remains weak and lethargic denies any other significant symptoms Trying to participate in physical therapy but requiring more assistance Remains pleasantly confused 06/07/2019 The patient was seen and examined in medical floor He remains weak and lethargic Not on to do things for himself No apparent distress at rest Attending participating in physical Remains pleasantly confused 06/08/2019 The patient was seen and examined in medical floor He looks much better today and communicating normally Denies any significant symptoms and willing to participate in physical therapy Advised to drink more fluid which he will try 06/09/2019 The patient was seen and examined in medical floor He was noted to have more confusion today Denies any significant symptoms Has not been drinking enough fluid 06/10/2019 The patient was seen and examined in medical floor He has been much better today but remains pleasantly confused Has been eating and drink and participating in physical therapy Review of Systems Review of Systems: All systems reviewed and are unremarkable except as noted below Neurologic: Alert, awake, pleasantly confused. Generally weak without focal neuro deficit Physical Exam Physical Exam: Sitting on a chair without any acute distress Constitutional: well developed, well nourished, + ill appearing and + obese; no acute distress Eyes: PERRL, conjunctivae normal, anicteric sclerae ENMT: external ear and nose normal, oropharynx normal Neck: trachea midline, no thyromegaly Respiratory: normal respiratory effort; no respiratory distress Ausculta tion: lungs clear to auscultation bilaterally, + diminished lung sounds and + crackles (Minimal crackles at the bases) Cardiovascular: Rate/Rhythm: regular rate and regular rhythm Heart Sounds: no murmur Extremities: + edema (Minimal edema bilaterally) Gastrointestinal (Abdomen): Inspection/Auscultation: + abdomen distended and normal bowel sounds Percussion/Palpation: abdomen soft; abdomen nontender Neurologic: moves all extremities; no focal motor deficits Speech / Cognition: + abnormal speech Motor/Sensory: no tremor Psychiatric: Orientation: alert Affect: euthymic affect Mood: + anxious mood; no irritable mood Insight: + poor insight Judgement: + poor judgement Lymphatic: no cervical or axillary lymphadenopathy Results & Data Vital Signs (Past 12 Hours) Vital Signs Temp Pulse Pulse Resp BP BP Pulse Ox 06/10/19 15:17 36.6 C 58 L 20 108/69 98 06/10/19 07:39 36.4 C L 87 16 147/83 H 91 06/10/19 04:43 54 L 16 158/93 H 98 Laboratory Results Short CBC 06/10/19 Range/Units 08:34 WBC 3.77 L (4.8-10.8) K/uL Hgb 10.8 L (14.0-18.0) g/dL Hct 35.8 L (42-52) % Plt Count 67 L (130-400) K/uL BMP 06/10/19 08:34 Sodium 136 Potassium 4.0 Chloride 107 Carbon Dioxide 24 BUN 22 H Creatinine 1.65 H Glucose 124 H Calcium 10.1 Medications Administered Current Inpatient Medications Acetaminophen (Tylenol) 650 mg PO Q4H PRN PRN Reason: pain/fever Stop: 07/02/19 18:22 Amlodipine Besylate (Norvasc) 5 mg PO DAILY [facility] Stop: 07/03/19 08:59 Last Admin: 06/10/19 09:08 Dose: 5 mg Documented by: Carvedilol (Coreg) 12.5 mg PO BIDM [facility] Stop: 07/05/19 16:59 Last Admin: 06/10/19 09:06 Dose: 12.5 mg Documented by: Divalproex Sodium (Depakote Delay Release) 500 mg PO BID [facility] Stop: 07/09/19 20:59 Last Admin: 06/10/19 09:07 Dose: 500 mg Documented by: Duloxetine HCl (Cymbalta) 60 mg PO DAILY [facility] Stop: 07/03/19 08:59 Last Admin: 06/10/19 09:06 Dose: 60 mg Documented by: Sodium Chloride (Nss 1000ml) 1,000 mls @ 80 mls/hr IV .[id number] [facility] Stop: 06/11/19 00:29 Last Admin: 06/10/19 12:08 Dose: 80 mls/hr Documented by: Imipramine HCl (Tofranil) 50 mg PO TID [facility] Stop: 07/02/19 20:59 Last Admin: 06/03/19 13:53 Dose: Not Given Documented by: Levothyroxine Sodium (Synthroid) 125 mcg PO DAILYBB [facility] Stop: 07/03/19 06:29 Last Admin: 06/10/19 05:56 Dose: 125 mcg Documented by: Miconazole Nitrate (Desenex) 1 appln EXT PRN PRN PRN Reason: Affected Skin Folds Stop: 07/03/19 09:06 Last Admin: 06/08/19 07:42 Dose: 1 appln Documented by: Olanzapine (Zyprexa) 2.5 mg IM Q4H PRN PRN Reason: Anxiety/Agitation Stop: 07/03/19 20:57 Last Admin: 06/03/19 21:32 Dose: 2.5 mg Documented by: Oxybutynin Chloride (Ditropan Xl) 10 mg PO DAILY [facility] Stop: 07/03/19 08:59 Last Admin: 06/10/19 09:07 Dose: 10 mg Documented by: Polyethylene Glycol (Miralax Powder Packet) 17 gm PO DAILY PRN PRN Reason: Constipation Stop: 07/05/19 19:30 Last Admin: 06/10/19 13:42 Dose: 17 gm Documented by: Prednisone (Prednisone) 5 mg PO DAILY [facility] Stop: 07/03/19 08:59 Last Admin: 06/10/19 09:07 Dose: 5 mg Documented by: Risperidone (Risperdal) 1 mg PO TID [facility] Stop: 07/02/19 20:59 Last Admin: 06/10/19 13:42 Dose: 1 mg Documented by: Tolterodine Tartrate (Detrol La) 4 mg PO DAILY [facility] Stop: 07/03/19 08:59 Last Admin: 06/10/19 09:07 Dose: 4 mg Documented by:
[2019-06-10] MEDS: HEPARIN SOD 5,000 UNIT/0.5 ML VIAL SQ SCH (20:59)
[2019-06-11] MEDS: POLYETHYLENE (MIRALAX) 17 GM PACK PO PRN (05:31)
[2019-06-11] MEDS: LEVOTHYROXINE SODIUM 125 MCG TABLET PO SCH (05:31)
[2019-06-11 07:04] LABS: BUN Creatinine Ratio 12.6 (10-20); Calcium 10.1 mg/dl (8.5-10.1); Creatinine Clr Calc Pharmacy 56.1 ml/min; Est GFR (African American) 51.8; Est GFR (Non-African American) 44.7; Phosphorus 3.1 mg/dl (2.5-4.9)
[2019-06-11] MEDS: OXYBUTYNIN CHLORIDE XL 5 MG TABCR PO SCH (09:17)
[2019-06-11] MEDS: risperiDONE 1 MG TABLET PO SCH ×3 (09:17→21:03)
[2019-06-11] MEDS: predniSONE 5 MG TAB PO SCH (09:17)
[2019-06-11] MEDS: AMLODIPINE BESYLATE 5 MG TAB PO SCH (09:17)
[2019-06-11] MEDS: DULOXETINE HCL 60 MG CAP PO SCH (09:17)
[2019-06-11] MEDS: TOLTERODINE TARTRATE LA 4 MG CAPCR PO SCH (09:17)
[2019-06-11] MEDS: carvediloL 12.5 MG TAB PO SCH ×2 (09:17→16:54)
[2019-06-11] MEDS: HEPARIN SOD 5,000 UNIT/0.5 ML VIAL SQ SCH ×2 (09:19→21:39)
[2019-06-11 10:00] LABS: Potassium 4.1 mmol/L (3.5-5.1)
--- NOTE | 2019-06-11 20:05 | Hospitalist Progress Note ---
Date of Service June 11, 2019 Assessment & Plan (1) Drowsiness: Metabolic encephalopathy Likely secondary to polypharmacy ( He was on Duloxetine/depakote/risperdal/imipramine/oxybutynin) Psych was consulted Imipramine has been on hold Valproic acid level is high at 130 valproic acid decreased to 500 twice daily started today Clinically improves significantly Continue monitor (2) Fall: (3) Generalized weakness: (4) Ambulatory dysfunction: Present to the ER after falling out of his wheelchair Possible related to medication ( Currently on Duloxetine/depakote/risperdal/imipramine/oxybutynin) Sleeping more in the morning Continue PT/OT fall precaution PT/OT recommended inpatient rehab Fall precaution (5) Hypercalcemia: Likely multifactorial secondary to supplements and dehydration Calcium on admission 11 PTH wnl and calcium 10.1 today Advised to drink more fluid-has not been doing so Resolved (6) Diastolic dysfunction: No signs of volume overload Has been getting intravenous fluid due to dehydration and abnormal kidney function Chest x-ray did not show any fluid overload No signs of fluid overload Stable (7) Schizoaffective disorder, bipolar type: Was getting duloxetine, Depakote, Risperdal, Imipramine Will consider psych consult for medication adjustment Might need to decrease Risperdal and imipramine to BID Will follow psychiatric recommendation No acute schizophrenic symptoms (8) Vasculitis: Continue chronic prednisone (9) CKD (chronic kidney disease), stage III: Baseline creatinine runs in the mid to high ones Creatinine 1.6 today Renal function has been deteriorating Will resume lasix on discharge Check BMP in 1 week (10) Hypertension: BP controlled continue carvedilol and amlodipine Blood pressure is controlled (11) Hypothyroidism: TSH 10 Will increase levothyroxine to 137 mg Check TSH in 4 to 6 weeks (12) DVT prophylaxis: SQ Lovenox Discussed with the sister in detail on 06/04/2019 Will keep on discussing with the sister-discussed with the sister on 06/10/2019 Subjective Pt was seen and examined Sitting in chair with no distress Pt looks much better compare to when i saw him last week He is able to hold a conversation today He said that he would like to go to rehab to get stronger I poke to sister today and provided update to her Denies any chest pain, palpitation and SOB Results & Data Vital Signs (Past 12 Hours) Vital Signs Temp Pulse Pulse Resp BP Pulse Ox 06/11/19 16:53 60 105/71 06/11/19 15:08 36.6 C 82 18 104/65 94
[2019-06-11] MEDS: DIVALPROEX DELAY RELEASE 500 MG TAB PO SCH (21:39)
[2019-06-12] MEDS ORDERED: LEVOTHYROXINE SODIUM 137 MCG TABLET PO SCH (06:30)
[2019-06-12] MEDS: AMLODIPINE BESYLATE 5 MG TAB PO SCH (08:55)
[2019-06-12] MEDS: DULOXETINE HCL 60 MG CAP PO SCH (08:56)
[2019-06-12] MEDS: risperiDONE 1 MG TABLET PO SCH (08:56)
[2019-06-12] MEDS: OXYBUTYNIN CHLORIDE XL 5 MG TABCR PO SCH (08:56)
[2019-06-12] MEDS: predniSONE 5 MG TAB PO SCH (08:56)
[2019-06-12] MEDS: carvediloL 12.5 MG TAB PO SCH (08:56)
[2019-06-12] MEDS: TOLTERODINE TARTRATE LA 4 MG CAPCR PO SCH (08:57)
[2019-06-12] MEDS: DIVALPROEX DELAY RELEASE 500 MG TAB PO SCH (08:57)
[2019-06-12] MEDS: HEPARIN SOD 5,000 UNIT/0.5 ML VIAL SQ SCH (10:12)
--- NOTE | 2019-06-12 10:57 | Hospitalist Progress Note ---
Date of Service June 12, 2019 Assessment & Plan (1) Drowsiness: Metabolic encephalopathy Likely secondary to polypharmacy ( He was on Duloxetine/depakote/risperdal/imipramine/oxybutynin) Psych was consulted Imipramine has been on hold Valproic acid level is high at 130 valproic acid decreased to 500 twice daily started today Clinically improves significantly Continue monitor (2) Fall: (3) Generalized weakness: (4) Ambulatory dysfunction: Present to the ER after falling out of his wheelchair Possible related to medication ( Currently on Duloxetine/depakote/risperdal/imipramine/oxybutynin) Sleeping more in the morning Continue PT/OT fall precaution PT/OT recommended inpatient rehab Fall precaution (5) Hypercalcemia: Likely multifactorial secondary to supplements and dehydration Calcium on admission 11 PTH wnl and calcium 10.1 today Advised to drink more fluid-has not been doing so Resolved (6) Diastolic dysfunction: No signs of volume overload Has been getting intravenous fluid due to dehydration and abnormal kidney function Chest x-ray did not show any fluid overload No signs of fluid overload Stable (7) Schizoaffective disorder, bipolar type: Was getting duloxetine, Depakote, Risperdal, Imipramine Will consider psych consult for medication adjustment Might need to decrease Risperdal and imipramine to BID Will follow psychiatric recommendation No acute schizophrenic symptoms (8) Vasculitis: Continue chronic prednisone (9) CKD (chronic kidney disease), stage III: Baseline creatinine runs in the mid to high ones Creatinine 1.6 today Renal function has been deteriorating Will resume lasix on discharge Check BMP in 1 week (10) Hypertension: BP controlled continue carvedilol and amlodipine Blood pressure is controlled (11) Hypothyroidism: TSH 10 Continue levothyroxine to 137 mg Check TSH in 4 to 6 weeks (12) DVT prophylaxis: SQ Lovenox Disposition Will discharge ro rehab today Discussed with the sister in detail on 06/11/2019 Subjective Pt was seen and examined Sitting in chair with no distress Pt said that he feels fine He is more awake Denies any chest pain, palpitation, dizziness and SOB Physical Exam Physical Exam: General- No acute distress Head- atraumatic Eyes- PERRL, EOMI, ENT- oropharynx clear Neck- supple, no JVD Lungs- clear to auscultation Heart- regular rhythm; no murmur Abdomen- normal bowel sounds, soft, nontender Extremities- no calf tenderness, +edema Neuro- move all extremities Skin- warm & dry Results & Data ([facility]) Vital Signs (Past 12 Hours) Vital Signs Temp Pulse Pulse Pulse Pulse Resp BP 06/12/19 09:49 36.6 C 61 63 59 L 54 L 18 105/71 06/12/19 07:30 36.6 C 59 L 18 06/11/19 22:55 37.0 C 63 18 BP Pulse Ox 06/12/19 09:49 135/85 96 06/12/19 07:30 135/85 96 06/11/19 22:55 134/85 95
--- NOTE | 2019-06-14 09:53 | Discharge Summary ---
Date of Service June 12, 2019 Admission HPI Per Admitting Provider Tigre Becerril is a 53-year-old male admitted medically on 06/02/2019 after presenting to the ED via EMS s/p fall. Pt informed ED staff that he fell out of his scooter while at home, and has suffered ambulatory dysfunction since that time. It seems as though patient was previously able to participate in conversation, but today is more lethargic and minimally responsive to even tactile stimuli. Psychiatric consultation was requested for medication recommendations in light of sedation; as he is on several medications that can contribute to increased sedation. Available external medication records were reviewed, along with previous documentation from this admission. Notes indicate that patient lives at home with his sister, and that prior to this fall he had been ambulating well and denied other concerns. Attempt was made by this provider to meet with the patient to further discuss his case. He was observed to be resting in bed, snoring. He was unresponsive to verbal stimuli, and only minimally responsive to tactile stimuli. Pt did demonstrate awareness of this provider's presence when this provider rubbed his arm; however, he did not open his eyes or respond with any verbal remarks. Att empt to speak with the patient was not successful at this time, and no visitors are present at time of encounter. Admission Exam Per Admitting Provider VS noted and reviewed oriented x 2, not in distress, speaks in sentences with no effort nor accessory muscle use normal rate, regular rhythm, no murmurs clear breath sounds bilaterally non distended, soft, nontender no bipedal edema, erythema, warmth no neuro deficits Principal Diagnosis Drowsiness Metabolic encephalopathy Fall Generalized weakness Ambulatory dysfunction Hypercalcemia Diastolic dysfunction Schizoaffective disorder, bipolar type Vasculitis Continue chronic prednisone CKD (chronic kidney disease), stage III Hypertension Hypothyroidism Discharge Exam General- No acute distress Head- atraumatic Eyes- PERRL, EOMI, ENT- oropharynx clear Neck- supple, no JVD Lungs- clear to auscultation Heart- regular rhythm; no murmur Abdomen- normal bowel sounds, soft, nontender Extremities- no calf tenderness, +edema Neuro- move all extremities Skin- warm & dry Discharge Data Allergies Allergy/AdvReac Type Severity Reaction Status Date / Time furosemide Allergy Intermediate Oral Verified 06/02/19 14:54 solution - rash neomycin Allergy Intermediate Rash Verified 06/02/19 14:54 polymyxin B Allergy Intermediate Rash Verified 06/02/19 14:54 Sulfa (Sulfonamide Allergy Intermediate Bactrim - Verified 06/02/19 14:54 Antibiotics) rash. sulfamethoxazole Allergy Intermediate Rash Verified 06/02/19 14:54 [From Bactrim] trimethoprim [From Bactrim] Allergy Intermediate Rash Verified 06/02/19 14:54 aspirin Allergy Unknown Nothing Verified 06/02/19 14:54 with Aspirin. bacitracin Allergy Unknown Rash Verified 06/02/19 14:54 Cephalosporins Allergy Unknown Unknown Verified 06/02/19 14:54 doxycycline Allergy Unknown ON LIST Verified 06/02/19 14:54 moxifloxacin Allergy Unknown Unverified 06/02/19 14:54 Consultations 06/02/19 17:29 ED Decision to Admit Stat 06/02/19 18:23 Consult Case Management - Discharge Planning Routine 06/03/19 13:47 Consult Psychiatry Routine Ordered Studies 06/02/19 17:47 US venous doppler LE BI Routine US venous doppler LE BI HISTORY: Pain. Edema. edema COMPARISON STUDY: None. FINDINGS: There is normal compressibility, flow, and augmentation within the bilateral lower extremity deep venous systems. IMPRESSION: No DVT within the right or left lower extremity. ACT 112: Negative or not required by law. The above report was generated using voice recognition software. It may contain grammatical, syntax or spelling errors. Electronically signed by: Justen Nevarez M.D. 06/02/2019 9:00 PM Dictated: 06/02/192058 Transcribed: 06/02/192058 XR chest 1V portable HISTORY: Shortness of breath. COMPARISON: Chest 02/13/2019. FINDINGS: No pneumothorax. There are low lung volumes. The heart remains mildly enlarged. No pleural effusions. No new focal lung consolidations to suggest pneumonia. Advanced degenerative changes within the bilateral shoulders are again noted. There is mild central pulmonary vascular congestion without overt edema. IMPRESSION: Stable cardiomegaly and mild central pulmonary vascular congestion without overt edema. ACT 112: Negative or not required by law. Electronically signed by: Asad Terrazas M.D. 06/10/2019 10:04 AM Dictated: 06/10/19 100 Transcribed: 06/10/191002 Hospital Course (1) Drowsiness: Metabolic encephalopathy Likely secondary to polypharmacy ( He was on Duloxetine/depakote/risperdal/imipramine/oxybutynin) Psych was consulted Imipramine has been on hold Valproic acid level is high at 130 valproic acid decreased to 500 twice daily started today Clinically improves significantly Continue monitor (2) Fall: Due to combination of weakness and ambulatory dysfunction We will get PT and OT evaluation-requiring maximum assistance to move around (3) Generalized weakness: Remains very weak and lethargic We will continue PT and OT evaluation Remains weak and lethargic (4) Ambulatory dysfunction: Present to the ER after falling out of his wheelchair Possible related to medication ( Currently on Duloxetine/depakote/risperdal/imipramine/oxybutynin) Sleeping more in the morning Continue PT/OT fall precaution PT/OT recommended inpatient rehab Fall precaution (5) Hypercalcemia: Likely multifactorial secondary to supplements and dehydration Calcium on admission 11 PTH wnl and calcium 10.1 today Advised to drink more fluid-has not been doing so Resolved (6) Diastolic dysfunction: No signs of volume overload Has been getting intravenous fluid due to dehydration and abnormal kidney function Chest x-ray did not show any fluid overload No signs of fluid overload Stable (7) Schizoaffective disorder, bipolar type: Was getting duloxetine, Depakote, Risperdal, Imipramine Will consider psych consult for medication adjustment Might need to decrease Risperdal and imipramine to BID Will follow psychiatric recommendation No acute schizophrenic symptoms (8) Vasculitis: Continue chronic prednisone (9) CKD (chronic kidney disease), stage III: Baseline creatinine runs in the mid to high ones Creatinine 1.6 today Renal function has been deteriorating Will resume lasix on discharge Check BMP in 1 week (10) Hypertension: BP controlled continue carvedilol and amlodipine Blood pressure is controlled (11) Hypothyroidism: TSH 10 Continue levothyroxine to 137 mg Check TSH in 4 to 6 weeks (12) DVT prophylaxis: SQ Lovenox Disposition Will discharge ro rehab today Discussed with the sister in detail on 06/11/2019 Total Time Total Time Spent Total Time Spent (In Minutes): 35 minutes Total Time Includes: Examination of the Patient, Discharge Planning, Medication Reconciliation, Communication With Other Providers and Other Discharge Plan Discharge Items Patient Disposition: Transfer Inpatient Rehab Fac Reason For Visit: FALL,AMBULATORY DYSFUNCTION Discharge Diagnosis: Drowsiness Metabolic encephalopathy Fall Generalized weakness Ambulatory dysfunction Hypercalcemia Diastolic dysfunction Schizoaffective disorder, bipolar type Vasculitis Continue chronic prednisone CKD (chronic kidney disease), stage III Hypertension Hypothyroidism Activity: Resume your previous activity Non-emergency contact: Primary Care Provider Call non-emergency contact if: you have any medication questions Follow-up/Referrals: Don Watters MD [Primary Care Provider] - Diet: Heart Healthy Addtl Attending Provider Instructions: Follow up with your primary care provider once discharge from rehab Follow up with psychiatry to continue to adjust your medication Continue physical and occupational therapy Fall precaution Check BMP in 1 week to monitor electrolytes and kidney function Check valproic acid in 1 week Check TSH in 4 week Pending Studies at Discharge: No Stand-Alone Forms: My [employer] Skilled Items Patient informed of condition?: Yes DNR: No Discharge Level of Care: Acute rehab Communicable Disease: No Discharge Prognosis: Stable Lines: None Urinary Catheter: No Medications and DC Order Prescriptions: New levothyroxine 137 mcg Tablet 137 mcg PO DAILYBB 30 Days Qty: 30 RF: 0 Continued duloxetine [Cymbalta] 60 mg Capsule,Delayed Release(Dr/Ec) 60 mg PO DAILY RF: 0 calcium carbonate-vitamin D3 [Calcium 600 + D(3)] 600 mg(1,500mg) -400 unit Tablet 1 tab PO DAILY RF: 0 ascorbic acid (vitamin C) [Vitamin C] 1,000 mg Tablet 1 g PO DAILY RF: 0 oxybutynin chloride 10 mg Tablet Extended Release 24hr 10 mg PO DAILY RF: 0 prednisone 5 mg Tablet 5 mg PO DAILY RF: 0 cyanocobalamin (vitamin B-12) [Vitamin B-12] 1,000 mcg Tablet 1,000 mcg PO DAILY RF: 0 vitamin E 400 unit Capsule 400 unit PO DAILY RF: 0 omega [id number]-fish oil [Fish Oil] 1,000 mg (120 mg-180 mg) Capsule 1,000 mg PO DAILY RF: 0 tolterodine 4 mg capsule,extended release 24hr 4 mg PO DAILY RF: 0 furosemide 40 mg tablet 40 mg PO DAILY RF: 0 magnesium oxide 400 mg (241.3 mg magnesium) tablet 400 mg PO BID RF: 0 risperidone 1 mg tablet 1 mg PO TID RF: 0 amlodipine 10 mg tablet 5 mg PO DAILY RF: 0 Changed carvedilol 6.25 mg Tablet 12.5 mg PO BIDM 30 Days Qty: 120 RF: 0 divalproex 500 mg tablet,delayed release (DR/EC) 500 mg PO BID 30 Days Qty: 60 RF: 0 Discontinued levothyroxine 125 mcg Tablet 125 mcg PO DAILY RF: 0 imipramine HCl 50 mg tablet 50 mg PO TID RF: 0 Discharge Orders: Discharge Order (Routine); Ordered 06/12/19 Ordered By: Logan Ortiz/Other Patient Handouts: Divalproex Sodium Oral tablet extended-release Admission Data Admit Date/Time: 06/03/19 19:54 Attending Provider: Logan Aparicio Admit Provider: Stewart Scott Primary Care Provider: Don Watters Other Providers: [facility] ; Stewart Scott ; Prisca Orozco ; Logan Aparicio ; Kristyn Leyva Other Interventions: Discharge Summary Assessment (RN) Last Done: 06/12/19 09:49 DC Date/Time DO NOT enter until pt leaves facility: 06/12/19 12:46
== END 2019-06-12 12:46 | DRG 640 ==
LOC: 4W 12:53 → ED 12:53 → SUATTDRO 17:28 → 4W 18:00 → SUATTDRO 06-03 19:54 → 4W 06-04 22:57 → 3N 06-09 12:52

== ENCOUNTER 2019-12-10 14:26 | Inpatient (IN) ==
--- NOTE | 2019-12-10 14:50 | Emergency Department Note ---
History of Present Illness General Chief complaint: Leg Injury/Pain Time Seen by Provider: 12/10/19 14:28 History of Present Illness 54-year-old male, history of schizoaffective disorder bipolar type, pancreatitis , hip joint prosthesis removal, stage III CKD, hyperlipidemia, hypertension, hypothyroidism, anemia, obstructive sleep apnea, post-traumatic seizures, reflux esophagitis, fasciotomy, and tracheostomy, who presents to the Emergency Room via ambulance from home with complaint of bilateral leg swelling, redness and seeping. According to EMS, they report that the family thought that he may be dehydrated as well. The patient does have a history of lower extremity swelling, and has also had chronic cellulitis in the past. Family is concerned that his legs are more red than usual. Both EMS and nursing staff also feels that the patient is also somewhat altered, and reports that the patient is also a poor historian. He lives at home with his sister. He has a known history of frequent falls. When asked if the patient has any significant leg pain, he reports mild pain. He denies any chest pain, shortness of breath, abdominal pain or chills. Home Medications Home Medications Medication Instructions Recorded Confirmed Type cyanocobalamin (vitamin B-12) 1,000 mcg PO DAILY 04/18/18 12/10/19 History [Vitamin B-12] vitamin E 400 unit PO DAILY 04/18/18 12/10/19 History calcium carbonate-vitamin D3 1 tab PO BID 11/20/18 12/10/19 History [Calcium 600 + D(3)] duloxetine [Cymbalta] 60 mg PO DAILY 11/20/18 12/10/19 History oxybutynin chloride 10 mg PO DAILY 02/13/19 12/10/19 History prednisone 5 mg PO DAILY 02/13/19 12/10/19 History tolterodine 4 mg PO DAILY 06/02/19 12/10/19 History amlodipine [Norvasc] 5 mg PO DAILY 12/10/19 12/10/19 History amoxicillin 2,000 mg PO UD 12/10/19 12/10/19 History amoxicillin-pot clavulanate 1 tab PO Q12 12/10/19 12/10/19 History ascorbic acid (vitamin C) [Vitamin 1 g PO DAILY 12/10/19 12/10/19 History C] divalproex 1,000 mg PO BID 12/10/19 12/10/19 History fenofibrate nanocrystallized 145 mg PO DAILY 12/10/19 12/10/19 History furosemide [Lasix] 20 mg PO DAILY 12/10/19 12/10/19 History imipramine HCl 50 mg PO TID 12/10/19 12/10/19 History levothyroxine 50 mcg PO DAILY 12/10/19 12/10/19 History linagliptin [Tradjenta] 5 mg PO DAILY 12/10/19 12/10/19 History nystatin 1 applic TOPICAL BID 12/10/19 12/10/19 History omega 0-boi-jhu-fish oil [Fish Oil] 1 cap PO BID 12/10/19 12/10/19 History risperidone 2 mg PO BID 12/10/19 12/10/19 History triamcinolone acetonide 1 applic TOPICAL BID 12/10/19 12/10/19 History Allergies Allergy/AdvReac Type Severity Reaction Status Date / Time furosemide Allergy Intermediate Oral Verified 12/10/19 18:15 solution - rash neomycin Allergy Intermediate Rash Verified 12/10/19 18:15 polymyxin B Allergy Intermediate Rash Verified 12/10/19 18:15 Sulfa (Sulfonamide Allergy Intermediate Bactrim - Verified 12/10/19 18:15 Antibiotics) rash. sulfamethoxazole Allergy Intermediate Rash Verified 06/02/19 14:54 [From Bactrim] trimethoprim [From Bactrim] Allergy Intermediate Rash Verified 06/02/19 14:54 aspirin Allergy Unknown Nothing Verified 12/10/19 18:15 with Aspirin. 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) Bipolar disorder (Chronic) Chronic pain (Chronic) CKD (chronic kidney disease), stage III (Chronic) Diabetes mellitus, type II Diastolic dysfunction Goiter (Chronic) Hyperlipidemia (Chronic) Hyperprolactinemia (Chronic) Hypertension (Inactive) Hypertension (Chronic) Hypothyroidism (Chronic) ALKA (iron deficiency anemia) (Chronic) JHOANA (obstructive sleep apnea) (Chronic) does not use cpap or bipap Pancreatitis Post-traumatic seizures (Chronic) RBBB (Chronic) Reflux esophagitis (Chronic) Schizoaffective disorder, bipolar type Thrombocytopenia Vasculitis (Chronic) Surgical History History of fasciotomy (Chronic) History of total right hip arthroplasty (Chronic) History of tracheostomy (Chronic) Family History Other Family history unobtainable due to patient's condition Social History Smoking Status: Never smoker Second Hand Exposure: No; Hx Alcohol Use: Yes Alcohol type: beer Hx Substance Use: No Preferred Language: Kyrgyz Communication Ability: Effective 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 Physical Exam Vital Signs Vital Signs - 24 hr 12/10/19 14:41 12/10/19 15:13 12/10/19 15:14 Temperature 37.0 C Temperature Source Oral Pulse Rate 83 76 77 Pulse Rate from SpO2 Sensor 78 Respiratory Rate 22 16 17 Respiratory Effort / Characteristics Non-Labored Spontaneous Respiratory Depth Normal Respiratory Pattern Regular Blood Pressure 137/81 132/71 Blood Pressure Mean 99 95 Pulse Oximetry 95 95 Oxygen Delivery Method Room Air Sepsis Recent Fever Within 48 Hours No Sepsis New/Unexplained Change in Mental Status No Sepsis Action Taken by Nursing No Action Required 12/10/19 15:30 12/10/19 15:42 12/10/19 16:00 Temperature Temperature Source Pulse Rate 79 82 74 Pulse Rate from SpO2 Sensor 88 Respiratory Rate 19 16 14 Respiratory Effort / Characteristics Respiratory Depth Respiratory Pattern Blood Pressure 137/64 156/98 H Blood Pressure Mean 90 105 Pulse Oximetry 95 Oxygen Delivery Method Sepsis Recent Fever Within 48 Hours Sepsis New/Unexplained Change in Mental Status Sepsis Action Taken by Nursing 12/10/19 16:01 12/10/19 17:10 12/10/19 17:12 Temperature Temperature Source Pulse Rate 80 Pulse Rate from SpO2 Sensor 75 74 Respiratory Rate 18 Respiratory Effort / Characteristics Respiratory Depth Respiratory Pattern Blood Pressure 125/75 Blood Pressure Mean 92 Pulse Oximetry 92 90 Oxygen Delivery Method Sepsis Recent Fever Within 48 Hours Sepsis New/Unexplained Change in Mental Status Sepsis Action Taken by Nursing CONSTITUTIONAL: Morbidly obese male. When asked questions, the patient does engage in appropriate conversation, but frequently falls asleep. Patient is oriented to place and situation, but does not recall the date. HEENT: Normocephalic, atraumatic. Pupils equal, round and reactive. No scleral icterus or conjunctival injection/pallor. Mucous membranes are dry. NECK: Full active range of motion without discomfort. No obvious JVD or carotid bruits. LYMPHATICS: No cervical chain adenopathy. RESPIRATORY: Clear to auscultation bilaterally with no wheezing, crackles, rhonchi or stridor. CARDIOVASCULAR: Regular rate and rhythm with no murmurs, rubs or gallops. GASTROINTESTINAL: Bowel sounds present in all quadrants. Abdomen is protuberant but soft and nontender to palpation. MUSCULOSKELETAL: Examination shows bilateral lower extremity pitting edema with mild overriding erythema. Serous drainage is noted from both legs. He has a very superficial abrasion to the right anterior leg without any surrounding induration, significant erythema or drainage. Pedal pulses are intact. INTEGUMENTARY: No rash or other significant dermatologic conditions noted. HEMATOLOGIC: No ecchymosis or petechiae. PSYCHIATRIC: Flat affect. NEUROLOGIC: No focal neurologic deficits noted. Course Course Patient history and physical exam were performed. Nurse's notes were reviewed. Vital signs were reviewed. The patient is currently on O2 via nasal cannula at 4 L/min. His O2 saturation was in the low 90s. He is otherwise normotensive and afebrile. He is not tachycardic. As indicated in the Physical Exam section, the patient does answer questions appropriately, but frequently falls asleep. It is unknown whether this is baseline for the patient, or if he has had any other recent changes as his sister is not present. The patient does not have any other concerns other than stating that his family was concerned that he was dehydrated. I also reviewed prior medical records, showing that the patient was admitted to our facility in May 2019 with similar symptoms. IV access was established, and labs were drawn, including blood cultures x2. Given prior history of diastolic dysfunction, and peripheral edema, I elected to defer aggressive IV hydration at this point until additional labs to assess for possible sepsis were completed. An ECG shows a normal sinus rhythm with right bundle branch block. This is unchanged from his last ECG done in February 2019. A portable chest x-ray did not show evidence for overt failure, consolidations or other acute findings. Noncontrast CT of the head was normal. Labs were reviewed to show persistent and chronic leukopenia, thrombocytopenia and anemia. Review of prior labs shows similar trends. INR is elevated at 1.2. The patient is mildly hyponatremic, and creatinine is also elevated at 1.98. The patient has known history of stage III chronic kidney disease. LFTs and lipase are normal. Troponin and BNP are both normal. Phosphorus and magnesium are normal. Lactate is mildly elevated at 2.1, and procalcitonin is normal. TSH is 7.21 with a normal free T4. Valproic acid level is 123. I had to take deep into prior medical records to show that the patient is currently taking this at his sister's request (she is the medical power of assistant attorney general) for treatment of a posttraumatic seizure disorder. Venous ultrasound was negative for DVT. Ammonia level is also normal. Repeat lactate was normal at 1.5. The case was further discussed with Dr. Braden, ED attending physician, who evaluated the patient and [facility]. With marginally elevated lactate, as well as edema and erythema of the legs, cellulitis was the greatest concern for now. The patient also appears to have a mild altered mental status. The patient was administered IV clindamycin. [facility]. Please see their dictation for further treatment and final disposition. Administered Medications Imipramine HCl (Tofranil) 50 mg PO TID [facility] Stop: 01/09/20 20:59 Last Admin: 12/10/19 20:11 Dose: 50 mg Documented by: [id number] Insulin Aspart (Novolog Flexpen) 0 units SC ACHS NIC Stop: 01/09/20 20:59 Last Admin: 12/10/19 21:38 Dose: Not Given Documented by: [id number] Cosigned by: [id number] Multivitamins/Minerals (Caltrate Plus) 1 tab PO BID NIC Stop: 01/09/20 20:59 Last Admin: 12/10/19 20:11 Dose: 1 tab Documented by: [id number] Nystatin (Nystatin) 1 appln EXT BID NIC Stop: 01/09/20 20:59 Last Admin: 12/10/19 20:12 Dose: 1 appln Documented by: [id number] Risperidone (Risperdal) 2 mg PO BID NIC Stop: 01/09/20 20:59 Last Admin: 12/10/19 20:11 Dose: 2 mg Documented by: [id number] Discontinued Medications Clindamycin Phosphate 900 mg/ (Dextrose) 56 mls @ 112 mls/hr IV ONE ONE Stop: 12/10/19 16:44 Last Infusion: 12/10/19 17:29 Dose: 0 mls/hr Documented by: [id number] Admin: 12/10/19 16:55 Dose: 112 mls/hr Documented by: [id number] Piperacillin Sod/Tazobactam (Sod 4.5 gm/ Dextrose) 120 mls @ 200 mls/hr IV TODAY@1900 ONE; Protocol Stop: 12/10/19 19:35 Last Admin: 12/10/19 20:10 Dose: 200 mls/hr Documented by: [id number] Medical Decision Making Medical Records Attestation: I reviewed the patient's medical records. Home Medications Current Medication List: was personally reviewed by me Laboratory Data Attestation: I reviewed the patient's lab results. Result diagrams: 12/10/19 15:04 12/10/19 15:04 Lab Results 12/10/19 12/10/19 12/10/19 Range/Units 15:04 15:04 15:04 WBC 3.88 L (4.8-10.8) K/uL RBC 3.24 L (4.7-6.1) M/uL Hgb 9.1 L (14.0-18.0) g/dL Hct 28.7 L (42-52) % MCV 88.6 (80-100) fL MCH 28.1 (25-34) pg MCHC 31.7 L (32-36) g/dL RDW Std Deviation 62.7 H (36.4-46.3) fL RDW Coeff of Debra 19.7 H (11.5-14.5) % Plt Count 72 L (130-400) K/uL MPV 8.3 (7.4-10.4) fL Immature Gran % (Auto) 0.5 % Neut % (Auto) 67.8 % Lymph % (Auto) 14.7 % [place] % (Auto) 16.2 % Eos % (Auto) 0.8 % Baso % (Auto) 0.0 % Neut # (Auto) 2.63 (1.4-6.5) K/uL Lymph # (Auto) 0.57 L (1.2-3.4) K/uL [place] # (Auto) 0.63 H (0.11-0.59) K/uL Eos # (Auto) 0.03 (0-0.5) K/uL Baso # (Auto) 0.00 (0-0.2) K/uL Immature Gran # (Auto) 0.02 (0.00-0.02) K/uL Absolute Nucleated RBC 0.02 H (0-0) K/uL Nucleated RBC % (auto) 0.6 % Platelet Estimate Decreased L (Normal) PT 12.3 H (9.0-12.0) Seconds INR 1.2 H (0.9-1.1) APTT 28.1 (21.0-31.0) Seconds PTT Ratio 1.0 Sodium 134 L (136-145) mmol/L Potassium 3.9 (3.5-5.1) mmol/L Chloride 96 L (98-107) mmol/L Carbon Dioxide 32 (21-32) mmol/L Anion Gap 6.0 (3-11) BUN 23 H (7-18) mg/dl Creatinine 1.98 H (0.6-1.4) mg/dl Est Cr Clr Drug Dosing 51.1 ml/min Est GFR ( Amer) 42.5 Est GFR (Non-Af Amer) 36.7 BUN/Creatinine Ratio 11.6 (10-20) Glucose 135 H (70-99) mg/dl Lactate (0.4-2.0) mmol/L Calcium 9.5 (8.5-10.1) mg/dl Phosphorus 3.7 (2.5-4.9) mg/dl Magnesium 1.8 (1.8-2.4) mg/dl Total Bilirubin 0.5 (0.2-1) mg/dl AST 22 (15-37) U/L ALT 11 L (12-78) U/L Alkaline Phosphatase 78 (45-117) U/L Ammonia (11-32) umol/L Troponin I < 0.015 (0-0.045) ng/ml NT-Pro-B Natriuret Pep 465 (0-900) pg/ml Total Protein 6.5 (6.4-8.2) gm/dl Albumin 2.2 L (3.4-5.0) gm/dl Globulin 4.3 H (2.5-4.0) gm/dl Albumin/Globulin Ratio 0.5 L (0.9-2) Procalcitonin (0-0.5) ng/ml TSH 7.210 H (0.300-4.500) uIu/ml Free T4 1.05 (0.8-1.6) ng/dl Valproic Acid (50-100) mcg/ml 12/10/19 12/10/19 12/10/19 Range/Units 15:04 15:04 15:05 WBC (4.8-10.8) K/uL RBC (4.7-6.1) M/uL Hgb (14.0-18.0) g/dL Hct (42-52) % MCV (80-100) fL MCH (25-34) pg MCHC (32-36) g/dL RDW Std Deviation (36.4-46.3) fL RDW Coeff of Debra (11.5-14.5) % Plt Count (130-400) K/uL MPV (7.4-10.4) fL Immature Gran % (Auto) % Neut % (Auto) % Lymph % (Auto) % [place] % (Auto) % Eos % (Auto) % Baso % (Auto) % Neut # (Auto) (1.4-6.5) K/uL Lymph # (Auto) (1.2-3.4) K/uL [place] # (Auto) (0.11-0.59) K/uL Eos # (Auto) (0-0.5) K/uL Baso # (Auto) (0-0.2) K/uL Immature Gran # (Auto) (0.00-0.02) K/uL Absolute Nucleated RBC (0-0) K/uL Nucleated RBC % (auto) % Platelet Estimate (Normal) PT (9.0-12.0) Seconds INR (0.9-1.1) APTT (21.0-31.0) Seconds PTT Ratio Sodium (136-145) mmol/L Potassium (3.5-5.1) mmol/L Chloride (98-107) mmol/L Carbon Dioxide (21-32) mmol/L Anion Gap (3-11) BUN (7-18) mg/dl Creatinine (0.6-1.4) mg/dl Est Cr Clr Drug Dosing ml/min Est GFR ( Amer) Est GFR (Non-Af Amer) BUN/Creatinine Ratio (10-20) Glucose (70-99) mg/dl Lactate 2.1 H* (0.4-2.0) mmol/L Calcium (8.5-10.1) mg/dl Phosphorus (2.5-4.9) mg/dl Magnesium (1.8-2.4) mg/dl Total Bilirubin (0.2-1) mg/dl AST (15-37) U/L ALT (12-78) U/L Alkaline Phosphatase (45-117) U/L Ammonia (11-32) umol/L Troponin I (0-0.045) ng/ml NT-Pro-B Natriuret Pep (0-900) pg/ml Total Protein (6.4-8.2) gm/dl Albumin (3.4-5.0) gm/dl Globulin (2.5-4.0) gm/dl Albumin/Globulin Ratio (0.9-2) Procalcitonin 0.21 (0-0.5) ng/ml TSH (0.300-4.500) uIu/ml Free T4 (0.8-1.6) ng/dl Valproic Acid 123 H (50-100) mcg/ml 12/10/19 12/10/19 Range/Units 16:58 16:58 WBC (4.8-10.8) K/uL RBC (4.7-6.1) M/uL Hgb (14.0-18.0) g/dL Hct (42-52) % MCV (80-100) fL MCH (25-34) pg MCHC (32-36) g/dL RDW Std Deviation (36.4-46.3) fL RDW Coeff of Debra (11.5-14.5) % Plt Count (130-400) K/uL MPV (7.4-10.4) fL Immature Gran % (Auto) % Neut % (Auto) % Lymph % (Auto) % [place] % (Auto) % Eos % (Auto) % Baso % (Auto) % Neut # (Auto) (1.4-6.5) K/uL Lymph # (Auto) (1.2-3.4) K/uL [place] # (Auto) (0.11-0.59) K/uL Eos # (Auto) (0-0.5) K/uL Baso # (Auto) (0-0.2) K/uL Immature Gran # (Auto) (0.00-0.02) K/uL Absolute Nucleated RBC (0-0) K/uL Nucleated RBC % (auto) % Platelet Estimate (Normal) PT (9.0-12.0) Seconds INR (0.9-1.1) APTT (21.0-31.0) Seconds PTT Ratio Sodium (136-145) mmol/L Potassium (3.5-5.1) mmol/L Chloride (98-107) mmol/L Carbon Dioxide (21-32) mmol/L Anion Gap (3-11) BUN (7-18) mg/dl Creatinine (0.6-1.4) mg/dl Est Cr Clr Drug Dosing ml/min Est GFR ( Amer) Est GFR (Non-Af Amer) BUN/Creatinine Ratio (10-20) Glucose (70-99) mg/dl Lactate 1.5 (0.4-2.0) mmol/L Calcium (8.5-10.1) mg/dl Phosphorus (2.5-4.9) mg/dl Magnesium (1.8-2.4) mg/dl Total Bilirubin (0.2-1) mg/dl AST (15-37) U/L ALT (12-78) U/L Alkaline Phosphatase (45-117) U/L Ammonia 15.0 (11-32) umol/L Troponin I (0-0.045) ng/ml NT-Pro-B Natriuret Pep (0-900) pg/ml Total Protein (6.4-8.2) gm/dl Albumin (3.4-5.0) gm/dl Globulin (2.5-4.0) gm/dl Albumin/Globulin Ratio (0.9-2) Procalcitonin (0-0.5) ng/ml TSH (0.300-4.500) uIu/ml Free T4 (0.8-1.6) ng/dl Valproic Acid (50-100) mcg/ml Imaging Data Attestation: I personally reviewed and interpreted this imaging study as fo llows: My Impression: My interpretation of a portable chest x-ray does not show any overt failure, consolidations or pneumothorax. Stable cardiomegaly is appreciat ed. Noncontrast CT of the head did not show any evidence for intracranial bleed, midline shift or mass-effect. Venous ultrasound studies of bilateral lower extremities are negative for DVT. Radiologist reports were also reviewed. Radiologist's Impression: XR chest 1V portable HISTORY: 54 years-old Male SEPSIS acute sepsis COMPARISON: Chest radiograph 06/10/2019 TECHNIQUE: Portable AP view of the chest FINDINGS: Cardiac silhouette is enlarged. Pulmonary vascular congestion. Hypoinflation with mild interstitial coarsening. Left lung apex is partially obscured by the patient's chin. No pneumothorax. Mild ill-defined left basilar opacities. No large pleural effusion. Degenerative changes of the shoulders and spine. The patient is rotated towards the left. IMPRESSION: 1. Cardiomegaly with pulmonary vascular congestion. 2. Minimal left lung base opacities favor atelectasis. CT head/brain wo con CT DOSE: 537.48 mGy.cm HISTORY: Mental status change AMS TECHNIQUE: Multiaxial CT images of the head were performed without the use of intravenous contrast. A dose lowering technique was utilized adhering to the principles of ALARA. Comparison: 02/13/2019 Findings: The paranasal sinuses and mastoid air cells are clear. The calvarium and skull base are intact. The ventricles and sulci are within normal limits. There is no mass, hematoma, midline shift, or acute infarct. Impression: No acute intracranial abnormality. BILATERAL LOWER EXTREMITY VENOUS DOPPLER HISTORY: Acute pain and swelling of the bilateral lower extremities BLE edema COMPARISON STUDY: Duplex venous Doppler study 06/02/2019 FINDINGS: There is normal compressibility, flow, and augmentation within the bilateral lower extremity deep venous systems. Limited view of the calf vessels secondary to subcutaneous edema. IMPRESSION: No DVT within the right or left lower extremity. ECG Data Attestation: I personally reviewed and interpreted this ECG as follows: Indication: + weakness Rate (beats per minute): 75 Rhythm: + normal sinus ECG Intervals/blocks: + Right Bundle branch block and + Normal HI ECG [place]: + Left axis deviation Comparison ECG Date: from (02/13/2019) Change: no significant change Blood Pressure Blood Pressure Findings: Normal blood pressure MDM Narrative Cardiac monitoring: An order was placed for continuous cardiac monitoring. The monitor shows a rate of 75 bpm with normal sinus rhythm and right bundle branch block. manager fire history was reviewed throughout the evaluation, and no dysrhythmias were noted. Patient presents to the emergency department with complaint of bilateral lower extremity edema, oozing and erythema. It appears that the patient has had a prior history of chronic cellulitis. The patient does have erythema of the legs, along with an elevated lactate concerning for infection. It is noted that the patient is afebrile, normotensive and not tachycardic. Other sources of infection were considered. Chest x-ray does not show evidence for pneumonia. We were unable to collect a urinalysis at the time of this dictation. His cardiac work-up is not suggestive of myocardial infarction. Troponin and BNP are normal, therefore myocardial infarction and overt CHF is considered unlikely. Patient has had a metabolic encephalopathy in the past, which could also explain his symptoms. He does appear to be slightly altered today, but does engage in appropriate conversation. He does have a history of weakness and frequent falls. Impression & Plan Bilateral lower leg cellulitis, Diastolic dysfunction, Pancytopenia, Chronic kidney disease (CKD), stage III (moderate) Discharge Plan Visit Data *Final* Discharge Date/Time: 12/10/19 17:55 Chief Complaint: Leg Injury/Pain ED Provider: Adithya Braden ED Midlevel Provider: Glynn Hodge Discharge Problem: Bilateral lower leg cellulitis, Diastolic dysfunction, Pancytopenia, Chronic kidney disease (CKD), stage III (moderate) Patient Disposition: Admitted As Inpatient Discharge Instructions Interventions: ED Discharge Assessment Last Done: 12/10/19 17:55
[2019-12-10 15:31] LABS: Albumin Level 2.2 gm/dl (3.4-5.0); BUN Creatinine Ratio 11.6 (10-20); Blood Urea Nitrogen 23 mg/dl (7-18); Calcium 9.5 mg/dl (8.5-10.1); Carbon Dioxide 32 mmol/L (21-32); Chloride 96 mmol/L (98-107); Creatinine Clr Calc Pharmacy 51.1 ml/min; Est GFR (African American) 42.5; Est GFR (Non-African American) 36.7; Glucose 135 mg/dl (70-99); Magnesium 1.8 mg/dl (1.8-2.4); Potassium 3.9 mmol/L (3.5-5.1); Sodium 134 mmol/L (136-145)
[2019-12-10 15:34] LABS: Eosinophils # (auto) 0.03 K/uL (0-0.5); Eosinophils % (auto) 0.8 %; Hematocrit (blood only) 28.7 % (42-52); Hemoglobin 9.1 g/dL (14.0-18.0); INR 1.2 (0.9-1.1); Immature Granulocytes # (auto) 0.02 K/uL (0.00-0.02); Immature Granulocytes % (auto) 0.5 %; Lymphocytes # (auto) 0.57 K/uL (1.2-3.4); Lymphocytes % (auto) 14.7 %; Mean Corpuscular Hemoglobin 28.1 pg (25-34); Mean Corpuscular Hgb Conc 31.7 g/dL (32-36); Mean Corpuscular Volume 88.6 fL (80-100); Mean Platelet Volume 8.3 fL (7.4-10.4); Monocytes # (auto) 0.63 K/uL (0.11-0.59); Monocytes % (auto) 16.2 %; Neutrophils # (auto) 2.63 K/uL (1.4-6.5); Neutrophils % (auto) 67.8 %; Nucleated RBC # (auto) 0.02 K/uL (0-0); Nucleated RBC % (auto) 0.6 %; Partial Thromboplastin Time 28.1 Seconds (21.0-31.0); Platelet Count 72 K/uL (130-400); Platelet Estimate Decreased (Normal); Prothrombin Time 12.3 Seconds (9.0-12.0); RDW Coefficient of Variation 19.7 % (11.5-14.5); RDW Standard Deviation 62.7 fL (36.4-46.3); Red Blood Count 3.24 M/uL (4.7-6.1); White Blood Count 3.88 K/uL (4.8-10.8)
[2019-12-10 15:42] LABS: Alanine Aminotransferase 11 U/L (12-78); Albumin Globulin Ratio 0.5 (0.9-2); Alkaline Phosphatase 78 U/L (45-117); Aspartate Aminotransferase 22 U/L (15-37); Bilirubin,Total 0.5 mg/dl (0.2-1); Globulin 4.3 gm/dl (2.5-4.0); NT Pro B Type Natriuretic Pept 465 pg/ml (0-900); Phosphorus 3.7 mg/dl (2.5-4.9); Total Protein 6.5 gm/dl (6.4-8.2); Troponin I < 0.015 ng/ml (0-0.045)
--- NOTE | 2019-12-10 15:43 | CT Scan Report ---
CT head/brain wo con CT DOSE: 537.48 mGy.cm HISTORY: Mental status change AMS TECHNIQUE: Multiaxial CT images of the head were performed without the use of intravenous contrast. A dose lowering technique was utilized adhering to the principles of ALARA. Comparison: 02/13/2019 Findings: The paranasal sinuses and mastoid air cells are clear. The calvarium and skull base are int act. The ventricles and sulci are within normal limits. There is no mass, hematoma, midline shift, or acute infarct. Impression: No acute intracranial abnormality. ACT 112: Negative or not required by law. The above report was generated using voice recognition software. It may contain grammatical, syntax or spelling errors. Electronically signed by: Justen Nevarez M.D. 12/10/2019 3:42 PM
[2019-12-10 15:55] LABS: T4 Free Thyroxine 1.05 ng/dl (0.8-1.6)
--- NOTE | 2019-12-10 15:57 | XRay Report ---
XR chest 1V portable HISTORY: 54 years-old Male SEPSIS acute sepsis COMPARISON: Chest radiograph 06/10/2019 TECHNIQUE: Portable AP view of the chest FINDINGS: Cardiac silhouette is enlarged. Pulmonary vascular congestion. Hypoinflation with mild interstitial c oarsening. Left lung apex is partially obscured by the patient's chin. No pneumothorax. Mild ill-defi dannielle left basilar opacities. No large pleural effusion. Degenerative changes of the shoulders and spin e. The patient is rotated towards the left. IMPRESSION: 1. Cardiomegaly with pulmonary vascular congestion. 2. Minimal left lung base opacities favor atelectasis. ACT 112: Negative or not required by law. The above report was generated using voice recognition software. It may contain grammatical, syntax o r spelling errors. Electronically signed by: Omid Zamora M.D. 12/10/2019 3:55 PM
--- NOTE | 2019-12-10 16:02 | Emergency Department Note ---
ED Visit Note Patient was seen and evaluated at the bedside w/ Jose Hodge PA-C. Please see their note for history, physical, details, and disposition. Patient does have some weeping to the bilateral lower extremities. Pancytopenia is noted likely chronic in nature. Patient does have some mild SHIELA patient has a known history of diastolic heart failure so fluids were held at this time. Patient was ordered antibiotics and admitted to the medicine service. .
[2019-12-10] MEDS ORDERED: CLINDAMYCIN 900 MG in DEXTROSE 5% 50 ML IV ONE (16:15)
--- NOTE | 2019-12-10 16:58 | Ultrasound Report ---
BILATERAL LOWER EXTREMITY VENOUS DOPPLER HISTORY: Acute pain and swelling of the bilateral lower extremities BLE edema COMPARISON STUDY: Duplex venous Doppler study 06/02/2019 FINDINGS: There is normal compressibility, flow, and augmentation within the bilateral lower extremit y deep venous systems. Limited view of the calf vessels secondary to subcutaneous edema. IMPRESSION: No DVT within the right or left lower extremity. ACT 112: Negative or not required by law. Electronically signed by: Omid Zamora M.D. 12/10/2019 4:57 PM
--- NOTE | 2019-12-10 18:05 | History & Physical Report ---
Date of Service December 10, 2019 Assessment & Plan (1) AMS (altered mental status): Metabolic encephalopathy Pt is 54 y/o M with PMH vasculitis on prednisone, HTN, HLD, CKD III, schizoaffective disorder, chronic anemia, chronic thrombocytopenia, history of posttraumatic seizure disorder, hypothyroidism, DM II presented to ER for bilateral leg redness couple of weeks and difficulty standing today, increased lethargy today. In ER vitals stable, afebrile. WBC: 3.8 (baseline in the 3's), Valproic acid level: 123, ammonia level WNL CT Head: no acute changes Probable metabolic encephalopathy may be secondary to underlying infection vs medication UA pending Treat cellulitis as below Will hold valproic acid currently. Consider decrease dose Neuro checks (2) Cellulitis: Reported chronic BLE edema with noted erythema past couple of weeks. Star becky on Augmentin 12/03/2019 outpatient with reported improvement of redness. No reported fever/chills Venous Doppler BLE negative for DVT Initial lactic acid 2.1 with repeat at 1.5. Procalcitonin: 0.2 In ER given Clindamycin Blood cultures pending Zosyn Monitor (3) Schizoaffective disorder, bipolar type: Valproic acid level: 123 Hold valproic acid for now, consider decreasing dose Continue risperidone, duloxetine (4) Diastolic dysfunction: Chronic diastolic dysfunction. reported chronic BLE. CXR: Pulmonary vascular congestion. Hypoinflation with mild interstitial coarsening Pt's sister reports he drinks a lot of fluids at home Monitor I's & O's, low sodium diet, fluid restriction Continue oral lasix for now and closely monitor volume status (5) CKD (chronic kidney disease), stage III: Cr: 1.9. Was 1.7 on 11/12/2019 and ~1.5 in 05/2019 Monitor renal functions, avoid nephrotoxic agents when possible (6) Vasculitis: On chronic prednisone Continue daily prednisone (7) Hypertension: BP stable Continue amlodipine (8) Thrombocytopenia: Chronic thrombocytopenia, chronic anemia Hgb: 9.1 (baseline~10), PLT: 72 (baseline in 70s) Monitor CBC (9) Diabetes mellitus, type II: A1c: 7.0 on 11/12/2019 Hold Tradjenta NovoLog sliding scale per protocol (10) Hypothyroidism: TSH: 7.2, free T4: 1.05. TSH was 10 in 05/2019 Continue levothyroxine DVT Prophylaxis -SCDs Full Code as per discussion with pt and pt's sister Follows with Dr Watters for routine care Pt was seen and care coordinated with Dr Irizarry. See addendum History of Present Illness Chief Complaint: Leg redness, trouble standing Primary Care Provider: Don Watters MD Pt is 54 y/o M with PMH vasculitis on prednisone, HTN, HLD, CKD III, schizoaffective disorder, chronic anemia, chronic thrombocytopenia, history of posttraumatic seizure disorder, hypothyroidism, DM II presented to ER for leg redness and difficulty standing. History assisted from patient's sister as patient was noted altered mental status. Patient sister reports patient had history of altered mental status back in 05/2019 when his medications including his valproic acid was abnormal. She reports upon discharge from hospital patient went to [facility] for rehab and was there for 4 months and has since been home for the past 6 weeks. Patient states well at rehab is doing very well and was able to assist in transfers using a walker and his mental status was clear. She states since being home patient mostly sits in wheelchair and usuall y can assist in transfers using a walker. Today patient was unable to stand to use walker. She reports patient lives home alone and she comes to the house from 9 AM to 8 PM daily. She does all of his medication and gives him his medications. She reports has chronic bilateral leg edema however couple weeks ago noticed increased redness to legs and was seen by PCP and started on Augmentin on 12/03/2019. She reports edema has persisted however redness seem to be improving. Denies any known fevers or chills, nausea or vomiting. States patient has been eating and drinking well. Today she did notice some clear weeping from right leg. Denies any known fall since patient has been home. She states patient had clear mental status yesterday and had a counseling session. Today she noticed patient seemed to be mumbling more and more tired. Pt does have rash to groin skin folds and are using nystatin to area. She reports pt often with urinary incontinence. No noted hematuria, foul smelling urine. Pt denies N/V/D/C, ABBOTT, dizziness, CP, SOB, abdominal pain. Further ROS unable to be obtained secondary to pt's current mental status. Allergies Allergy/AdvReac Type Severity Reaction Status Date / Time furosemide Allergy Intermediate Oral Verified 12/10/19 18:15 solution - rash neomycin Allergy Intermediate Rash Verified 12/10/19 18:15 polymyxin B Allergy Intermediate Rash Verified 12/10/19 18:15 Sulfa (Sulfonamide Allergy Intermediate Bactrim - Verified 12/10/19 18:15 Antibiotics) rash. sulfamethoxazole Allergy Intermediate Rash Verified 06/02/19 14:54 [From Bactrim] trimethoprim [From Bactrim] Allergy Intermediate Rash Verified 06/02/19 14:54 aspirin Allergy Unknown Nothing Verified 12/10/19 18:15 with Aspirin. bacitracin Allergy Unknown Rash Verified 12/10/19 18:15 Cephalosporins Allergy Unknown Unknown Verified 12/10/19 18:15 doxycycline Allergy Unknown ON LIST Verified 12/10/19 18:15 moxifloxacin Allergy Unknown Unverified 12/10/19 18:15 Home Medications Home Medications Medication Instructions Recorded Confirmed Type cyanocobalamin (vitamin B-12) 1,000 mcg PO DAILY 04/18/18 12/10/19 History [Vitamin B-12] vitamin E 400 unit PO DAILY 04/18/18 12/10/19 History calcium carbonate-vitamin D3 1 tab PO BID 11/20/18 12/10/19 History [Calcium 600 + D(3)] duloxetine [Cymbalta] 60 mg PO DAILY 11/20/18 12/10/19 History oxybutynin chloride 10 mg PO DAILY 02/13/19 12/10/19 History prednisone 5 mg PO DAILY 02/13/19 12/10/19 History tolterodine 4 mg PO DAILY 06/02/19 12/10/19 History amlodipine [Norvasc] 5 mg PO DAILY 12/10/19 12/10/19 History amoxicillin 2,000 mg PO UD 12/10/19 12/10/19 History amoxicillin-pot clavulanate 1 tab PO Q12 12/10/19 12/10/19 History ascorbic acid (vitamin C) [Vitamin 1 g PO DAILY 12/10/19 12/10/19 History C] divalproex 1,000 mg PO BID 12/10/19 12/10/19 History fenofibrate nanocrystallized 145 mg PO DAILY 12/10/19 12/10/19 History furosemide [Lasix] 20 mg PO DAILY 12/10/19 12/10/19 History imipramine HCl 50 mg PO TID 12/10/19 12/10/19 History levothyroxine 50 mcg PO DAILY 12/10/19 12/10/19 History linagliptin [Tradjenta] 5 mg PO DAILY 12/10/19 12/10/19 History nystatin 1 applic TOPICAL BID 12/10/19 12/10/19 History omega 5-[id number]-fish oil [Fish Oil] 1 cap PO BID 12/10/19 12/10/19 History risperidone 2 mg PO BID 12/10/19 12/10/19 History triamcinolone acetonide 1 applic TOPICAL BID 12/10/19 12/10/19 History Past Med/Surg History Medical History (Updated 12/10/19 @ 19:10 by Latoya Caldwell PA-C) 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) Bipolar disorder (Chronic) Chronic pain (Chronic) CKD (chronic kidney disease), stage III (Chronic) Diabetes mellitus, type II Diastolic dysfunction Goiter (Chronic) Hyperlipidemia (Chronic) Hyperprolactinemia (Chronic) Hypertension (Inactive) Hypertension (Chronic) Hypothyroidism (Chronic) ALKA (iron deficiency anemia) (Chronic) JHOANA (obstructive sleep apnea) (Chronic) does not use cpap or bipap Pancreatitis Post-traumatic seizures (Chronic) RBBB (Chronic) Reflux esophagitis (Chronic) Schizoaffective disorder, bipolar type Thrombocytopenia Vasculitis (Chronic) Surgical History History of fasciotomy (Chronic) History of total right hip arthroplasty (Chronic) History of tracheostomy (Chronic) Family History Other Family history unobtainable due to patient's condition Social History Smoking Status: Never smoker Second Hand Exposure: No; Hx Alcohol Use: Yes Alcohol type: beer Hx Substance Use: No Preferred Language: Uzbek Communication Ability: Effective Honing Machine Operator Semiautomatic Required: No Beliefs That Will Affect Care: None marital status: Single Current Living Situation: Family Current Living Situation Comment: Lives in sister's shed Other Information That Helps Us Care for You: No Feels Safe at Home: Declines to Answer Review of Systems Review of Systems: All systems reviewed & are unremarkable except as noted in HPI & below Physical Exam Physical Exam: General: no acute distress, obese Head: normocephalic, atraumatic Eyes: PERRL, EOM's intact, conjunctiva non-injected, anicteric ENT: normal inspection external ears, nose, mucous membranes moist Neck: supple, trachea midline Lungs: clear, no respiratory distress, no wheezing/rhonchi/rales CV: RRR, no murmur Abd: normal BS, soft, protuberant, non-tender Ext: no cyanosis, no calf tenderness, bilateral leg edema, mild erythema to bilateral legs, right lower leg with abrasion Neuro: Alert, oriented to person, knows home address, unsure where he is right now, knows month and year. +mumbling speech. no focal deficits noted, normal affect Skin: warm, dry, LE as above, groin skin folds with erythema Results & Data Results & Data ([facility]) Vital Signs (Past 12 Hours) Vital Signs Temp Pulse Resp BP Pulse Ox 12/10/19 17:12 125/75 90 12/10/19 17:10 92 12/10/19 16:01 80 18 12/10/19 16:00 74 14 156/98 H 12/10/19 15:42 82 16 95 12/10/19 15:30 79 19 137/64 12/10/19 15:14 77 17 12/10/19 15:13 76 16 132/71 95 12/10/19 14:41 37.0 C 83 22 137/81 95 Laboratory Results Short CBC 12/10/19 12/10/19 Range/Units 15:04 15:04 WBC 3.88 L (4.8-10.8) K/uL Hgb 9.1 L (14.0-18.0) g/dL Hct 28.7 L (42-52) % Plt Count 72 L (130-400) K/uL Valproic Acid 123 H (50-100) mcg/ml BMP 12/10/19 15:04 Sodium 134 L Potassium 3.9 Chloride 96 L Carbon Dioxide 32 BUN 23 H Creatinine 1.98 H Glucose 135 H Calcium 9.5 Cardiac Enzymes 12/10/19 Range/Units 15:04 Troponin I < 0.015 (0-0.045) ng/ml Liver Function 12/10/19 Range/Units 15:04 Total Bilirubin 0.5 (0.2-1) mg/dl AST 22 (15-37) U/L ALT 11 L (12-78) U/L Alkaline Phosphatase 78 (45-117) U/L Albumin 2.2 L (3.4-5.0) gm/dl Diagnostic Findings CT HEAD: Impression: No acute intracranial abnormality. CXR: IMPRESSION: 1. Cardiomegaly with pulmonary vascular congestion. 2. Minimal left lung base opacities favor atelectasis VENOUS DOPPLER: IMPRESSION: No DVT within the right or left lower extremity. Supervising Physician Co-Signing Physician Notes Patient was seen and examined by me, care coordinated with Latoya Caldwell PA-C. Please see her note above for further details. Mr. Becerril is a 54-year-old male, with history of hypothyroidism, DM type II, schizoaffective disorder, PTSD, CKD stage III, diastolic dysfunction, vasculitis, on chronic prednisone, chronic leukopenia, thrombocytopenia, anemia who presents today with bilateral lower extremity edema, right more than left, increased redness of his right calf, difficulty standing and altered mental status. History mostly obtained from sister, who is patient's POA, patient was seen by PCP and started on Augmentin on December 02 for right lower extremity cellulitis. Per sister, erythema is better. Usually patient uses wheelchair, however he could not use it today, lives alone however sister is with him most of the day. Sister reports that patient was unable to use a wheelchair & confused. In emergency room, he is answering some questions appropriately and some not so much. Patient was seen yesterday by his therapist and was doing well. Patient was previously admitted here, also with altered mental status, believed to be secondary to polypharmacy. He was then discharged to [facility] in [facility] one, and then has been at home for past 6 weeks. When he came from [facility] he was reportedly doing quite well. Blood cultures obtained in ED. Dopplers of lower extremities negative. Ammonia negative. Chest x-ray unremarkable, questionable vascular congestion. Valproic acid somewhat elevated at 123. Lactic acid initially mildly elevated at 2.1, after repeat lactate 1.5. Currently patient is lying in bed, in no acute distress. Answers some questions appropriately. Denies any pain besides some posterior lower extremity discomfort. Denies any chest pain or shortness of breath. Denies any nausea, fevers or chills. Heart sounds seem regular, lung sounds clear, no wheezing, crackles or rhonchi noted. Abdomen is soft, obese, bowel sounds are present. Patient is able to move all 4 extremities spontaneously and without difficulty. Lower extremities are edematous, right more than left. There is some erythema of left calf noted. Otherwise there are no rashes or lesions. Patient received IV clindamycin in the ED. At home he was on Augmentin for cellulitis. Will switch to IV Zosyn for now. Recommend fluid restriction and salt restriction to better control lower extremity swelling. May consider Neftali wraps. Given his thrombocytopenia, will hold chem. DVT, prophylaxis, and recommend SCDs. Discussed valproic acid dose with pharmacy, plan to hold dose tonight, and restart tomorrow at 750 twice daily. currently pt is on 1000 mg twice a day, and level is 123. Sara Irizarry MD
[2019-12-10] MEDS ORDERED: ACETAMINOPHEN 325 MG TAB PO PRN (18:24)
[2019-12-10] MEDS ORDERED: PIPERACILL/TAZOBAC CONSULT ACTIVE PRN (18:30)
[2019-12-10] MEDS ORDERED: GLUCOSE 40% GEL 15 GM TUBE PO PRN (18:36)
[2019-12-10] MEDS ORDERED: GLUCAGON FOR INJ 1 MG VIAL SQ PRN (18:36)
[2019-12-10] MEDS ORDERED: DEXTROSE 50% 50 ML SYRINGE IV PRN (18:36)
[2019-12-10] MEDS ORDERED: GLUCOSE 10 TABS/TUBE PO PRN (18:36)
[2019-12-10] MEDS ORDERED: PIPERACILLIN/TAZOBACTAM 4.5 GM in DEXTROSE 5% 100 ML IV ONE (19:00)
[2019-12-10] MEDS: IMIPRAMINE HCL 50 MG TAB PO SCH (20:11)
[2019-12-10] MEDS: CALCIUM 600MG + VIT D 400 IU TAB PO SCH (20:11)
[2019-12-10] MEDS: risperiDONE 2 MG TABLET PO SCH (20:11)
[2019-12-10] MEDS: NYSTATIN CR 15 GM TUBE EXT SCH (20:12)
[2019-12-10] MEDS: INSULIN ASPART 100 UNITS/ML 3 ML PEN SC SCH (21:38)
[2019-12-11] MEDS: PIPERACILLIN/TAZOBACTAM 4.5 GM in DEXTROSE 5% 100 ML IV SCH ×2 (00:22→08:28)
[2019-12-11] MEDS: LEVOTHYROXINE SODIUM 50 MCG TABLET PO SCH (06:12)
[2019-12-11] MEDS: INSULIN ASPART 100 UNITS/ML 3 ML PEN SC SCH ×4 (08:10→21:20)
[2019-12-11] MEDS: CALCIUM 600MG + VIT D 400 IU TAB PO SCH ×2 (08:11→21:15)
[2019-12-11] MEDS: TOLTERODINE TARTRATE LA 4 MG CAPCR PO SCH (08:11)
[2019-12-11] MEDS: IMIPRAMINE HCL 50 MG TAB PO SCH ×2 (08:11→14:17)
[2019-12-11] MEDS: risperiDONE 2 MG TABLET PO SCH (08:11)
[2019-12-11] MEDS: FENOFIBRATE NANOCRYSTALLIZED 145 MG TABLET PO SCH (08:12)
[2019-12-11] MEDS: CYANOCOBALAMIN 500 MCG TABLET (VITAMIN B-12) PO SCH (08:12)
[2019-12-11] MEDS: ASCORBIC ACID 500 MG TAB PO SCH (08:12)
[2019-12-11] MEDS: AMLODIPINE BESYLATE 5 MG TAB PO SCH (08:12)
[2019-12-11] MEDS: predniSONE 5 MG TAB PO SCH (08:12)
[2019-12-11] MEDS: DIVALPROEX DELAY RELEASE 500 MG TAB PO SCH ×2 (08:12→21:15)
[2019-12-11] MEDS: DULOXETINE HCL 60 MG CAP PO SCH (08:12)
[2019-12-11] MEDS: OXYBUTYNIN CHLORIDE XL 5 MG TABCR PO SCH (08:12)
[2019-12-11] MEDS: FUROSEMIDE 20 MG TAB PO SCH (08:12)
[2019-12-11] MEDS: DIVALPROEX DELAY RELEASE 250 MG TABEC PO SCH ×2 (08:13→21:15)
[2019-12-11 08:29] LABS: Hematocrit (blood only) 29.5 % (42-52); Hemoglobin 9.4 g/dL (14.0-18.0); Mean Corpuscular Hemoglobin 28.7 pg (25-34); Mean Corpuscular Hgb Conc 31.9 g/dL (32-36); Mean Corpuscular Volume 90.2 fL (80-100); RDW Standard Deviation 63.6 fL (36.4-46.3); Red Blood Count 3.27 M/uL (4.7-6.1); White Blood Count 3.15 K/uL (4.8-10.8)
[2019-12-11 08:38] LABS: Mean Platelet Volume 8.6 fL (7.4-10.4); Platelet Count 57 K/uL (130-400)
--- NOTE | 2019-12-11 08:51 | Electrocardiogram Report ---
Test Reason : Blood Pressure : / mmHG Vent. Rate : 075 BPM Atrial Rate : 075 BPM P-R Int : 186 ms QRS Dur : 146 ms QT Int : 400 ms P-R-T Axes : 014 -35 041 degrees QTc Int : 446 ms Normal sinus rhythm Left axis deviation Right bundle branch block Left ventricular hypertrophy Abnormal ECG When compared with ECG of 13-FEB-2019 17:01, No significant change was found Confirmed by Adolfo Campuzano ([id number]) on 12/11/2019 8:51:24 AM Referred By: REFERRED SELF Confirmed By:Adolfo Campuzano
[2019-12-11 09:05] LABS: Eosinophils # (auto) 0.11 K/uL (0-0.5); Eosinophils % (auto) 3.5 %; Hypochromasia Present; Immature Granulocytes # (auto) 0.01 K/uL (0.00-0.02); Immature Granulocytes % (auto) 0.3 %; Lymphocytes # (auto) 0.55 K/uL (1.2-3.4); Lymphocytes % (auto) 17.5 %; Monocytes % (auto) 12.7 %; Neutrophils # (auto) 2.08 K/uL (1.4-6.5); Polychromasia 1+
[2019-12-11 09:22] LABS: BUN Creatinine Ratio 10.2 (10-20); Calcium 10.1 mg/dl (8.5-10.1); Est GFR (African American) 43.6; Est GFR (Non-African American) 37.6; Potassium 3.3 mmol/L (3.5-5.1)
[2019-12-11] MEDS: NYSTATIN CR 15 GM TUBE EXT SCH ×2 (09:56→21:15)
[2019-12-11] MEDS ORDERED: POTASSIUM CHLORIDE 20 MEQ TABCR PO STA (10:23)
[2019-12-11] MEDS: AZTREONAM 2,000 MG in DEXTROSE 5% 100 ML IV SCH ×2 (12:20→21:14)
[2019-12-11] MEDS: DAPTOmycin 350 MG in SYRINGE 0 ML IV SCH (12:20)
[2019-12-11 16:59] LABS: Base Excess ABG 11.8 mEq/L (-9-1.8); HCO3 ABG 37 mmol/L (19-24); PCO2 ABG 54 mmHg (35-46); PO2 ABG 76 mmHg (80-95); pH ABG 7.46 (7.35-7.45)
[2019-12-11 17:00] LABS: Allen Test POS (Pos)
--- NOTE | 2019-12-11 18:30 | Hospitalist Progress Note ---
Date of Service December 11, 2019 Assessment & Plan (1) Acute metabolic encephalopathy: Acute metabolic encephalopathy possibly secondary to underlying bilateral extremity cellulitis. Abx were adjusted from Zosyn to Dapto/Aztreonam for better coverage pending blood culture results and clinical improvement. CT head is normal, CXR WNL, CBC at baseline with platelets now in the 50s, possibly related to consumption due to infection. BMP WNL, ammonia level is normal, ABG reveals a baseline CO2 level in the mid-50s and pH 7.47. It doesn't appear that CO2 retention of hypoxia are the cause of his somnolence. He is oxygenating well on room air at this time. It is possible, somnolence may also be from a toxic encephalopathy as a side effect of some of his medications. Imipramine and risperidone will be held for now. Will consult psychiatry to assist with medication management. I would expect he would improve from a somnolence standpoint after 24 hours of IV antibiotics if this was all related to infection. Consideration was given to adrenal insufficiency in setting of chronic prednisone, however, he is hemodynamically stable and afebrile. It may be reasonable to give hydrocortisone if he decompensates overnight. (2) Cellulitis: as above. (3) Schizoaffective disorder, bipolar type: Valproic acid level: 123 Hold valproic acid for now, consider decreasing dose Hold risperidone and imipramine, cont duloxetine Appreciate psychiatry assistance with medication management. (4) Diastolic dysfunction: Chronic diastolic dysfunction. reported chronic BLE. Volume status is tricky in this patient who is obese and not participating with exam, however, he appears euvolemic. CXR: Pulmonary vascular congestion. Hypoinflation with mild interstitial coar tano Pt's sister reports he drinks a lot of fluids at home Monitor I's & O's, low sodium diet, fluid restriction Continue oral lasix for now and closely monitor volume status (5) CKD (chronic kidney disease), stage III: Around baseline creatinine. Monitor renal functions, avoid nephrotoxic agents when possible (6) Vasculitis: Cont daily prednisone per home regimen. (7) Hypertension: BP stable, Continue amlodipine (8) Thrombocytopenia: Slight worsening of chronic thrombocytopenia likely 2/2 to consumption of platelets in acute infection. Hold blood thinners, monitor CBC. (9) Diabetes mellitus, type II: A1c: 7.0 on 11/12/2019 Hold Tradjenta NovoLog sliding scale per protocol Currently at inpatient goal (10) Hypothyroidism: Continue levothyroxine per home regimen. (11) Morbid obesity: (12) JHOANA (obstructive sleep apnea): Does not tolerate CPAP. (13) DVT prophylaxis: SCDs in thrombocytopenia Full Code Dispo-uncertain at this time. Ynes Rivera DO [facility] Hospitalist Admission and Anticipated Discharge Date Admission Date: December 10, 2019 Subjective unable to get Krishan to wake up for very long. He was able to say a few words, then fall back asleep Interestingly he is able to wake up fully for a meal, eat and return to sleep Urinary incontinence persists preventing a urine sample lethargic therefore cannot obtain ROS Review of Systems Review of Systems: Unobtainable due to cognitive status Physical Exam Physical Exam: CONSTITUTIONAL: obese, lethargic, wakes up to voice and will say one coherent statement or phrase then fall back asleep EYES: pupils are round and equal bilaterally, normal conjunctivae, no scleral icterus ENT: external ear and nose normal, MMM RESPIRATORY: limited exam as patient is obese and lethargic, clear to auscul tation bilaterally, no crackles, rales or wheezes CARDIOVASCULAR: regular rate and rhythm, S1 and 2 heard without murmurs, gallops or rubs, no JVD, no peripheral edema GASTROINTESTINAL: soft, nondistended, no guarding to palpation. MUSCULOSKELETAL: lethargic, unable to assess. head is normocephalic and atraumatic SKIN: warm and dry, erythematous skin on anterolateral bilateral lower extremit ies with areas of skin breech in places, no judy open wounds or judy drainage is present. Feet are puffy and edematous. NEUROLOGIC: lethargic, can wake up but not stay awake long enough to orient. Results & Data Results & Data ([facility] [place]) Vital Signs (Past 12 Hours) Vital Signs Temp Pulse Pulse Resp BP BP Pulse Ox 12/11/19 15:58 36.9 C 75 23 134/92 95 12/11/19 11:33 36.4 C L 69 20 120/64 99 12/11/19 08:00 70 12/11/19 07:23 36.4 C L 68 20 126/62 91 Laboratory Results Short CBC 12/11/19 Range/Units 08:06 WBC 3.15 L (4.8-10.8) K/uL Hgb 9.4 L (14.0-18.0) g/dL Hct 29.5 L (42-52) % Plt Count 57 L (130-400) K/uL BMP 12/11/19 08:06 Sodium 141 D Potassium 3.3 L D Chloride 102 Carbon Dioxide 36 H BUN 20 H Creatinine 1.94 H Glucose 103 H Calcium 10.1 Medications Administered Current Inpatient Medications Acetaminophen (Tylenol) 650 mg PO Q4H PRN PRN Reason: Pain or Fever Stop: 01/09/20 18:23 Amlodipine Besylate (Norvasc) 5 mg PO DAILY NIC Stop: 01/10/20 08:59 Last Admin: 12/11/19 08:12 Dose: 5 mg Documented by: Ascorbic Acid (Vitamin C) 1,000 mg PO DAILY NIC Stop: 01/10/20 08:59 Last Admin: 12/11/19 08:12 Dose: 1,000 mg Documented by: Cyanocobalamin (Vitamin B-12) 1,000 mcg PO DAILY NIC Stop: 01/10/20 08:59 Last Admin: 12/11/19 08:12 Dose: 1,000 mcg Documented by: Dextrose (Dextrose 50%) 25 - 50 ml IV UD PRN; Protocol PRN Reason: Hypoglycemia Protocol Stop: 01/09/20 18:35 Divalproex Sodium (Depakote Delay Release) 500 mg PO Q12 NIC Stop: 01/10/20 08:59 Last Admin: 12/11/19 08:12 Dose: 500 mg Documented by: Divalproex Sodium (Depakote Delay Release) 250 mg PO Q12 NIC Stop: 01/10/20 08:59 Last Admin: 12/11/19 08:13 Dose: 250 mg Documented by: Duloxetine HCl (Cymbalta) 60 mg PO DAILY NIC Stop: 01/10/20 08:59 Last Admin: 12/11/19 08:12 Dose: 60 mg Documented by: Fenofibrate (Tricor) 145 mg PO DAILY NIC Stop: 01/10/20 08:59 Last Admin: 12/11/19 08:12 Dose: 145 mg Documented by: Furosemide (Lasix) 20 mg PO DAILY NIC Stop: 01/10/20 08:59 Last Admin: 12/11/19 08:12 Dose: 20 mg Documented by: Glucagon (Glucagen) 1 mg SQ UD PRN; Protocol PRN Reason: Hypoglycemia Protocol Stop: 01/09/20 18:35 Glucose (Dex4 Glucose) 4 - 8 tabs PO UD PRN; Protocol PRN Reason: Hypoglycemia Protocol Stop: 01/09/20 18:35 Glucose (Glucose 40%) 15 - 30 gm PO UD PRN; Protocol PRN Reason: Hypoglycemia Protocol Stop: 01/09/20 18:35 Daptomycin 350 mg/ Syringe 7 mls @ 3.5 mls/min IV DAILY@1200 NIC; Protocol Stop: 12/18/19 11:59 Last Admin: 12/11/19 12:20 Dose: 3.5 mls/min Documented by: Aztreonam 2,000 mg/ Dextrose 110 mls @ 110 mls/hr IV Q8H [facility]; Protocol Stop: 12/18/19 11:59 Last Infusion: 12/11/19 14:01 Dose: Infused Documented by: Imipramine HCl (Tofranil) 50 mg PO TID [facility] Stop: 01/09/20 20:59 Last Admin: 12/11/19 14:17 Dose: 50 mg Documented by: Insulin Aspart (Novolog Flexpen) 0 units SC ACHS [facility] Stop: 01/09/20 20:59 Last Admin: 12/11/19 17:44 Dose: Not Given Documented by: Levothyroxine Sodium (Synthroid) 50 mcg PO DAILYBB [facility] Stop: 01/10/20 06:29 Last Admin: 12/11/19 06:12 Dose: 50 mcg Documented by: Miscellaneous (Carbohydrates For Hypoglycemia) 15 - 30 gm PO UD PRN PRN Reason: Hypoglycemia Protocol Stop: 01/09/20 18:35 Multivitamins/Minerals (Caltrate Plus) 1 tab PO BID [facility] Stop: 01/09/20 20:59 Last Admin: 12/11/19 08:11 Dose: 1 tab Documented by: Nystatin (Nystatin) 1 appln EXT BID [facility] Stop: 01/09/20 20:59 Last Admin: 12/11/19 09:56 Dose: 1 appln Documented by: Oxybutynin Chloride (Ditropan Xl) 10 mg PO DAILY [facility] Stop: 01/10/20 08:59 Last Admin: 12/11/19 08:12 Dose: 10 mg Documented by: Prednisone (Prednisone) 5 mg PO DAILY [facility] Stop: 01/10/20 08:59 Last Admin: 12/11/19 08:12 Dose: 5 mg Documented by: Risperidone (Risperdal) 2 mg PO BID [facility] Stop: 01/09/20 20:59 Last Admin: 12/11/19 08:11 Dose: 2 mg Documented by: Tolterodine Tartrate (Detrol La) 4 mg PO DAILY [facility] Stop: 01/10/20 08:59 Last Admin: 12/11/19 08:11 Dose: 4 mg Documented by:
[2019-12-11 18:54] LABS: Appearance Urine Clear (Clear); Bacteria Urine Automated Negative (Negative); Bilirubin Urine Negative (Negative); Blood Urine Negative (Negative); Cast Urine Automated 0 /lpf (0-5); Color Urine Yellow; Epithelial Cell Urine Auto 0-5 /lpf (0-5); Glucose Urine UA Negative (Negative); Ketones Urine Negative (Negative); Leukocyte Esterase Urine Negative (Negative); Nitrite Urine Negative (Negative); Specific Gravity Urine 1.009 (1.000-1.030); Urobilinogen Urine Negative (Negative); pH Urine 7.5 (4.5-7.5)
[2019-12-11 18:56] LABS: Amphetamines+Metham, Urine Neg (Neg); Barbiturates, Urine Neg (Neg); Benzodiazepine, Urine Neg (Neg); Cocaine, Urine Neg (Neg); MDMA (Ecstacy), Urine Neg (Neg); Methadone, Urine Neg (Neg); Opiate, Urine Neg (Neg); Phencyclidine, Urine Neg (Neg)
[2019-12-11 19:04] LABS: Protein Urine Trace (Negative)
[2019-12-11 19:17] LABS: Sulfosalicylic Acid Urine Positive (Negative)
[2019-12-11 19:20] LABS: Amorphous Sediment Urine Present (None Prsent); RBC Urine Automated 0-4 /hpf (0-4)
[2019-12-12] MEDS: AZTREONAM 2,000 MG in DEXTROSE 5% 100 ML IV SCH ×3 (03:39→19:36)
[2019-12-12 05:59] LABS: Hemoglobin 9.6 g/dL (14.0-18.0); Mean Corpuscular Hemoglobin 28.7 pg (25-34); Mean Corpuscular Volume 92.8 fL (80-100); Nucleated RBC # (auto) 0.03 K/uL (0-0); Nucleated RBC % (auto) 0.7 %; RDW Coefficient of Variation 20.5 % (11.5-14.5); RDW Standard Deviation 67.9 fL (36.4-46.3); Red Blood Count 3.34 M/uL (4.7-6.1); White Blood Count 3.87 K/uL (4.8-10.8)
[2019-12-12 06:00] LABS: Mean Platelet Volume 8.8 fL (7.4-10.4); Platelet Count 59 K/uL (130-400)
[2019-12-12] MEDS: LEVOTHYROXINE SODIUM 50 MCG TABLET PO SCH (06:28)
[2019-12-12 06:35] LABS: BUN Creatinine Ratio 10.1 (10-20); Calcium 9.7 mg/dl (8.5-10.1); Creatinine Clr Calc Pharmacy 52.1 ml/min; Est GFR (African American) 44.7; Est GFR (Non-African American) 38.6; Potassium 3.6 mmol/L (3.5-5.1)
[2019-12-12 06:38] LABS: C Reactive Protein 5.63 mg/dl (0-0.29)
--- NOTE | 2019-12-12 08:16 | Hospitalist Progress Note ---
Date of Service December 12, 2019 Assessment & Plan (1) Acute metabolic encephalopathy: resolved with abx and holding imipramine and risperidone. (2) Cellulitis: improved, cont current abx (3) Chronic diastolic heart failure: Chronic diastolic dysfunction. reported chronic BLE. Repeat CXR is clearer today, lungs clear, cont home Lasix PO. (4) Schizoaffective disorder, bipolar type: psych consulted. Agrees with depakote, and added risperidone small dose at bedtime. As his mental status has improved, will also add back his imipramine; sister warned not to keep this off too long per past behavioral issues. (5) CKD (chronic kidney disease), stage III: Around baseline creatinine. Monitor renal functions, avoid nephrotoxic agents when possible (6) Vasculitis: Cont daily prednisone per home regimen. (7) Hypertension: BP stable, Continue amlodipine (8) Thrombocytopenia: Slight worsening of chronic thrombocytopenia likely 2/2 to consumption of platelets in acute infection. Hold blood thinners, monitor CBC. (9) Diabetes mellitus, type II: A1c: 7.0 on 11/12/2019 Hold Tradjenta NovoLog sliding scale per protocol Currently at inpatient goal (10) Hypothyroidism: Continue levothyroxine per home regimen. (11) Morbid obesity: (12) JHOANA (obstructive sleep apnea): Does not tolerate CPAP. (13) DVT prophylaxis: SCDs in thrombocytopenia Full Code Dispo-uncertain at this time. Ynes Rivera DO [facility] Hospitalist Admission and Anticipated Discharge Date Admission Date: December 10, 2019 Subjective Spoke with his sister who gave me the following information: He has been home for 6 weeks from the intermediate was able to get dressed independently, transfer independently when he gets infections in the past, it's like he is taking too much bipolar medications/ sister administers his meds R hip is bad, but he can walk with a walker into the bathroom can hold a conversation normally at baseline incontinence gets worse when he is sick because he is weak physically and can't make it to the bathroom. was administering calmoseptine to a spot on his legs that was draining recently Pt more alert today Tolerating PO denies pain no fever Review of Systems Review of Systems: All systems reviewed & are unremarkable except as noted in Subjective Physical Exam Physical Exam: CONSTITUTIONAL: obese, oriented, alert, NAD EYES: pupils are round and equal bilaterally, normal conjunctivae, no scleral icterus ENT: external ear and nose normal, MMM RESPIRATORY: clear to auscultation bilaterally, no crackles, rales or wheezes CARDIOVASCULAR: regular rate and rhythm, S1 and 2 heard without murmurs, gallops or rubs, no JVD, no peripheral edema GASTROINTESTINAL: soft, nondistended, no guarding to palpation. MUSCULOSKELETAL: lethargic, unable to assess. head is normocephalic and atraumatic SKIN: warm and dry, erythematous skin on anterolateral bilateral lower extremities has improved to a more light pink color. No judy wounds and nothing draining. Toenails in bad shape. Puffy feet bilaterally NEURO: mentating clearly, alert, oriented x 3, moves all extremities equally. Physicall deconditioned but no gross focal neuro deficits. Results & Data Results & Data ([facility]) Vital Signs (Past 12 Hours) Vital Signs Temp Pulse Pulse Resp BP Pulse Ox 12/12/19 07:39 36.6 C 65 22 137/76 100 12/12/19 03:42 36.6 C 74 18 130/77 99 12/12/19 00:00 80 12/11/19 23:56 36.7 C 89 18 140/91 96 Laboratory Results Short CBC 12/11/19 12/12/19 Range/Units 08:06 05:33 WBC 3.15 L 3.87 L (4.8-10.8) K/uL Hgb 9.4 L 9.6 L (14.0-18.0) g/dL Hct 29.5 L 31.0 L (42-52) % Plt Count 57 L 59 L (130-400) K/uL BMP 12/11/19 12/12/19 08:06 05:33 Sodium 141 D 142 Potassium 3.3 L D 3.6 Chloride 102 103 Carbon Dioxide 36 H 36 H BUN 20 H 19 H Creatinine 1.94 H 1.90 H Glucose 103 H 96 Calcium 10.1 9.7 Cardiac Enzymes 12/12/19 Range/Units 05:33 Total Creatine Kinase 31 L (39-308) U/L Urine 12/11/19 Range/Units 18:12 Urine Color Yellow Urine Appearance Clear (Clear) Urine pH 7.5 (4.5-7.5) Ur Specific [place] 1.009 (1.000-1.030) Urine Protein Trace H (Negative) Urine Glucose (UA) Negative (Negative)
[2019-12-12] MEDS: DULOXETINE HCL 60 MG CAP PO SCH (08:32)
[2019-12-12] MEDS: OXYBUTYNIN CHLORIDE XL 5 MG TABCR PO SCH (08:32)
[2019-12-12] MEDS: TOLTERODINE TARTRATE LA 4 MG CAPCR PO SCH (08:32)
[2019-12-12] MEDS: predniSONE 5 MG TAB PO SCH (08:32)
[2019-12-12] MEDS: FENOFIBRATE NANOCRYSTALLIZED 145 MG TABLET PO SCH (08:32)
[2019-12-12] MEDS: FUROSEMIDE 20 MG TAB PO SCH (08:32)
[2019-12-12] MEDS: CALCIUM 600MG + VIT D 400 IU TAB PO SCH ×2 (08:33→20:22)
[2019-12-12] MEDS: CYANOCOBALAMIN 500 MCG TABLET (VITAMIN B-12) PO SCH (08:33)
[2019-12-12] MEDS: DIVALPROEX DELAY RELEASE 500 MG TAB PO SCH ×2 (08:33→20:23)
[2019-12-12] MEDS: ASCORBIC ACID 500 MG TAB PO SCH (08:33)
[2019-12-12] MEDS: AMLODIPINE BESYLATE 5 MG TAB PO SCH (08:33)
[2019-12-12] MEDS: NYSTATIN CR 15 GM TUBE EXT SCH ×2 (08:34→20:22)
[2019-12-12] MEDS: DIVALPROEX DELAY RELEASE 250 MG TABEC PO SCH ×2 (08:35→20:24)
[2019-12-12] MEDS: INSULIN ASPART 100 UNITS/ML 3 ML PEN SC SCH ×4 (08:36→21:02)
[2019-12-12] MEDS ORDERED: risperiDONE 0.5 MG TABLET PO SCH (09:00)
--- NOTE | 2019-12-12 10:01 | XRay Report ---
XR chest 1V portable HISTORY: 54 years-old Male evaluate pulm congestion seen on admission acute shortness of breath with pulmonary congestion COMPARISON: Chest radiograph 12/10/2019 TECHNIQUE: Portable AP view of the chest FINDINGS: Cardiomegaly with decreased pulmonary vascular congestion. Mild linear bibasilar predominant opacitie s. The lungs are hypoinflated. No pneumothorax, large pleural effusion or airspace consolidation typi jimmy for pneumonia. Degenerative changes of the shoulders and spine. IMPRESSION: 1. Cardiomegaly with mildly decreased pulmonary vascular congestion. 2. Hypoinflation with linear bibasilar densities suggestive of probable atelectasis. ACT 112: Negative or not required by law. The above report was generated using voice recognition software. It may contain grammatical, syntax o r spelling errors. Electronically signed by: Omid Zamora M.D. 12/12/2019 9:59 AM
[2019-12-12] MEDS: DAPTOmycin 350 MG in SYRINGE 0 ML IV SCH (12:15)
--- NOTE | 2019-12-12 12:44 | Psychiatric Consultation ---
Date of Consultation December 12, 2019 Impression / Recommendations Impression Dr. Sha Barr was directly involved in review and discussion of the patient's case and participated in medical decision making regarding treatment recommendations. RECOMMENDATIONS: 12/11 - Psychiatric consultation requested by hospitalist team to evaluate patient and provide medications related to schizoaffective disorder. - Pt continues to display intermittent confusion and sedation, likely related to metabolic encephalopathy and other medical complications. Historically, when not medically compromised, it appears the patient is stable with his psychotropic medication regimen. This makes it unlikely that his confusion is directly related to his psychotropic medications, though it does seem appropriate to reduce doses until confusion/sedation improves. - Agree with reducing doses of psychotropic medications until mental status improves. Dosed had already been reduced to: Depakote 750mg BID; Risperidone 0.5mg BID. Duloxetine continued at 60mg daily. Risperidone was adjusted to 1mg qHS to encourage restful sleep and avoid daytime sedation. As mental status improves, risperdione can slowly be titrated back to home dose. This can be done in either the inpatient hospital setting or in the acute physical rehab setting. - Will recheck a valproic acid trough level - ordered for tomorrow at 0800. - In regard to symptoms specifically related to his mental health history, patient is denying SI/HI and hallucinations and therefore appears to be psychiatrically stable for discharge to an acute rehab facility once mental status improves and he is medically cleared. Psych History Identifying Data 54-year-old male admitted medically on 12/10/2019 after presenting to the ED with complaints of difficulty standing and leg redness. Pt was being treated for encephalopathy, cellulitis, CKD, and other medical concerns. Plan is reportedly for discharge to an acute rehab facility. Psychiatric consultation was requested by hospitalist team to assess patient for history of schizoaffective disorder and provide medication recommendations related to recent confusion/sedation. Chief Complaint "Hi there. I don't really know." History of Present Illness Tigre Becerril is a 54-year-old male admitted medically on 12/10/2019 after presenting to the ED with complaints of difficulty standing and leg redness. Pt has a PMH of cellulitis, CKD, diastolic dysfunction, vasculitis, hypertension, T2DM, hypothyroidism, and thrombocytopenia. Psychiatric diagnosis is reported to be schizoaffective disorder, bipolar type. Psychiatric consultation was requested to evaluate patient for AMS in the setting of acute encephalopathy and medication recommendations. Pt was seen on our consult service for a similar presentation in 05/2019. Patient's case was reviewed and discussed during morning report with psychiatric nurse liaison and supervising psychiatrist. A valproic acid level obtained in the ED was 123 (not true 12-hour trough), and ammonia level was WNL. Due to AMS and sedation, it appears the hospitalist team has already reduced patient's dosing of psychotropic medications. Pt was initially seen by our psychiatric nurse liaison and was reported to have been more alert during that encounter and able to participate in a more productive interview. Pt is cooperative with encounter, but participation is limited due to sedation and confusion. Pt attempts to answer questions, but speech is muffled and occasionally unintelligible. Pt is unable to explain how he came to be in the hospital, but does admit he is feeling better today. He mentions "I wanna meet this wilfredo. Once they find him, I want to meet him." Pt is unable to explain the relevance of this comment. He does admit that he is aware his psychotropic medications have been reduced to assist with improving his mental status. When asked about suicidal and homicidal ideation, the patient does state "I do not feel there is a threat. No issues with that." Pt denied hallucinations as well. He is unable to identify any concerns with his psychotropic medications prior to his admission. He denies other needs or concerns, and continued to drift off to sleep during our encounter. Past Psychiatric History Current Psychiatric Diagnosis: Schizoaffective disorder, bipolar type Outpatient Services: It is appears his psychotropic medications are being prescribed by Dr. Alegre and Dr. Chapis Elizondo Allergies Allergy/AdvReac Type Severity Reaction Status Date / Time furosemide Allergy Intermediate Oral Verified 12/10/19 18:15 solution - rash neomycin Allergy Intermediate Rash Verified 12/10/19 18:15 polymyxin B Allergy Intermediate Rash Verified 12/10/19 18:15 Sulfa (Sulfonamide Allergy Intermediate Bactrim - Verified 12/10/19 18:15 Antibiotics) rash. sulfamethoxazole Allergy Intermediate Rash Verified 06/02/19 14:54 [From Bactrim] trimethoprim [From Bactrim] Allergy Intermediate Rash Verified 06/02/19 14:54 aspirin Allergy Unknown Nothing Verified 12/10/19 18:15 with Aspirin. bacitracin Allergy Unknown Rash Verified 12/10/19 18:15 Cephalosporins Allergy Unknown Unknown Verified 12/10/19 18:15 doxycycline Allergy Unknown ON LIST Verified 12/10/19 18:15 moxifloxacin Allergy Unknown Unverified 12/10/19 18:15 Home Medications Home Medications Medication Instructions Recorded Confirmed Type cyanocobalamin (vitamin B-12) 1,000 mcg PO DAILY 04/18/18 12/10/19 History [Vitamin B-12] vitamin E 400 unit PO DAILY 04/18/18 12/10/19 History calcium carbonate-vitamin D3 1 tab PO BID 11/20/18 12/10/19 History [Calcium 600 + D(3)] duloxetine [Cymbalta] 60 mg PO DAILY 11/20/18 12/10/19 History oxybutynin chloride 10 mg PO DAILY 02/13/19 12/10/19 History prednisone 5 mg PO DAILY 02/13/19 12/10/19 History tolterodine 4 mg PO DAILY 06/02/19 12/10/19 History amlodipine [Norvasc] 5 mg PO DAILY 12/10/19 12/10/19 History amoxicillin 2,000 mg PO UD 12/10/19 12/10/19 History amoxicillin-pot clavulanate 1 tab PO Q12 12/10/19 12/10/19 History ascorbic acid (vitamin C) [Vitamin 1 g PO DAILY 12/10/19 12/10/19 History C] divalproex 1,000 mg PO BID 12/10/19 12/10/19 History fenofibrate nanocrystallized 145 mg PO DAILY 12/10/19 12/10/19 History furosemide [Lasix] 20 mg PO DAILY 12/10/19 12/10/19 History imipramine HCl 50 mg PO TID 12/10/19 12/10/19 History levothyroxine 50 mcg PO DAILY 12/10/19 12/10/19 History linagliptin [Tradjenta] 5 mg PO DAILY 12/10/19 12/10/19 History nystatin 1 applic TOPICAL BID 12/10/19 12/10/19 History omega [id number]-fish oil [Fish Oil] 1 cap PO BID 12/10/19 12/10/19 History risperidone 2 mg PO BID 12/10/19 12/10/19 History triamcinolone acetonide 1 applic TOPICAL BID 12/10/19 12/10/19 History Family History Unable to obtain information due to patient's confusion/sedation. Substance Abuse History Unable to obtain information due to patient's confusion/sedation. 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) Bipolar disorder (Chronic) Chronic pain (Chronic) CKD (chronic kidney disease), stage III (Chronic) Diabetes mellitus, type II Diastolic dysfunction Goiter (Chronic) Hyperlipidemia (Chronic) Hyperprolactinemia (Chronic) Hypertension (Inactive) Hypertension (Chronic) Hypothyroidism (Chronic) ALKA (iron deficiency anemia) (Chronic) JHOANA (obstructive sleep apnea) (Chronic) does not use cpap or bipap Pancreatitis Post-traumatic seizures (Chronic) RBBB (Chronic) Reflux esophagitis (Chronic) Schizoaffective disorder, bipolar type Thrombocytopenia Vasculitis (Chronic) Surgical History History of fasciotomy (Chronic) History of total right hip arthroplasty (Chronic) History of tracheostomy (Chronic) Family History Other Family history unobtainable due to patient's condition Social History Smoking Status: Never smoker Second Hand Exposure: No; Hx Alcohol Use: Yes Alcohol type: beer Hx Substance Use: No Preferred Language: Mauritian Communication Ability: Effective 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 Beliefs That Will Affect Care: None marital status: Single Current Living Situation: Family Current Living Situation Comment: Lives in sister's shed Other Information That Helps Us Care for You: No Feels Safe at Home: Declines to Answer Physical Exam Psychiatric: Orientation: alert (intermittently, appears sedated and does drift off during conversation), oriented to person, oriented to place and oriented to time (in general - knows it is November 2019, but uncertain of date) Apperance: appeared stated age; + inappropriately dressed and + inappropriately groomed Obese-appearing male, laying in bed and sleeping initially. No acute distress. Pt is wearing a hospital gown, but it is falling off his shoulders and hardly covering his upper body. Pt appears disheveled and unkempt. Level of hygiene is not ideal. Eye Contact: + poor eye contact (drifting off to sleep) Motor Behavior: no abnormal motor movements (observed while laying in bed) Speech: + abnormal rate/rhythm/volume of speech (muffled and unintelligible at times) Affect: + blunted affect (subdued and sedated) Thought Process: + thought process not linear or logical and + thought process not clear or coherent Thought Content: + delusions (continues to appear intermittently encephalopathic ) Suicidal Thoughts: denies suicidal thoughts and denies suicidal intent Homicidal Thoughts: denies homicidal thoughts Hallucinations: no auditory hallucinations and no visual hallucinations Cognition: + recent memory not intact, + attention not intact and + language not intact Estimated Intelligence: consistent with education level Insight: + impaired insight Judgement: + impaired judgement Vital Signs (Past 24 Hours): Last Vital Signs Temp 36.6 C 12/12/19 07:39 Pulse 61 12/12/19 08:00 Resp 22 12/12/19 07:39 BP 137/76 12/12/19 07:39 Pulse Ox 100 12/12/19 07:39 Review of Systems Pt was sedated, and unable to participate in fully productive interview. He did admit to fatigue, but did not verbalize any other physical complaints. Results & Data ([facility]) Medications Administered Amlodipine Besylate (Norvasc) 5 mg PO DAILY NIC Stop: 01/10/20 08:59 Last Admin: 12/12/19 08:33 Dose: 5 mg Documented by: [id number] Admin: 12/11/19 08:12 Dose: 5 mg Documented by: [id number] Ascorbic Acid (Vitamin C) 1,000 mg PO DAILY NIC Stop: 01/10/20 08:59 Last Admin: 12/12/19 08:33 Dose: 1,000 mg Documented by: [id number] Admin: 12/11/19 08:12 Dose: 1,000 mg Documented by: [id number] Cyanocobalamin (Vitamin B-12) 1,000 mcg PO DAILY NIC Stop: 01/10/20 08:59 Last Admin: 12/12/19 08:33 Dose: 1,000 mcg Documented by: [id number] Admin: 12/11/19 08:12 Dose: 1,000 mcg Documented by: [id number] Divalproex Sodium (Depakote Delay Release) 500 mg PO Q12 NIC Stop: 01/10/20 08:59 Last Admin: 12/12/19 08:33 Dose: 500 mg Documented by: [id number] Admin: 12/11/19 21:15 Dose: 500 mg Documented by: [id number] Admin: 12/11/19 08:12 Dose: 500 mg Documented by: [id number] Divalproex Sodium (Depakote Delay Release) 250 mg PO Q12 NIC Stop: 01/10/20 08:59 Last Admin: 12/12/19 08:35 Dose: 250 mg Documented by: [id number] Admin: 12/11/19 21:15 Dose: 250 mg Documented by: [id number] Admin: 12/11/19 08:13 Dose: 250 mg Documented by: [id number] Duloxetine HCl (Cymbalta) 60 mg PO DAILY [facility] Stop: 01/10/20 08:59 Last Admin: 12/12/19 08:32 Dose: 60 mg Documented by: [id number] Admin: 12/11/19 08:12 Dose: 60 mg Documented by: [id number] Fenofibrate (Tricor) 145 mg PO DAILY [facility] Stop: 01/10/20 08:59 Last Admin: 12/12/19 08:32 Dose: 145 mg Documented by: [id number] Admin: 12/11/19 08:12 Dose: 145 mg Documented by: [id number] Furosemide (Lasix) 20 mg PO DAILY [facility] Stop: 01/10/20 08:59 Last Admin: 12/12/19 08:32 Dose: 20 mg Documented by: [id number] Admin: 12/11/19 08:12 Dose: 20 mg Documented by: [id number] Daptomycin 350 mg/ Syringe 7 mls @ 3.5 mls/min IV DAILY@1200 NIC; Protocol Stop: 12/18/19 11:59 Last Admin: 12/12/19 12:15 Dose: 3.5 mls/min Documented by: [id number] Admin: 12/11/19 12:20 Dose: 3.5 mls/min Documented by: [id number] Aztreonam 2,000 mg/ Dextrose 110 mls @ 110 mls/hr IV Q8H NIC; Protocol Stop: 12/18/19 11:59 Last Admin: 12/12/19 12:16 Dose: 110 mls/hr Documented by: [id number] Infusion: 12/12/19 04:43 Dose: 0 mls/hr Documented by: [id number] Admin: 12/12/19 03:39 Dose: 110 mls/hr Documented by: [id number] Infusion: 12/11/19 22:17 Dose: 0 mls/hr Documented by: [id number] Admin: 12/11/19 21:14 Dose: 110 mls/hr Documented by: [id number] Infusion: 12/11/19 14:01 Dose: 0 mls/hr Documented by: [id number] Admin: 12/11/19 12:20 Dose: 110 mls/hr Documented by: [id number] Imipramine HCl (Tofranil) 50 mg PO TID NIC Stop: 01/09/20 20:59 Last Admin: 12/11/19 14:17 Dose: 50 mg Documented by: [id number] Admin: 12/11/19 08:11 Dose: 50 mg Documented by: [id number] Admin: 12/10/19 20:11 Dose: 50 mg Documented by: [id number] Insulin Aspart (Novolog Flexpen) 0 units SC ACHS NIC Stop: 01/09/20 20:59 Last Admin: 12/12/19 12:16 Dose: Not Given Documented by: [id number] Admin: 12/12/19 08:36 Dose: Not Given Documented by: [id number] Admin: 12/11/19 21:20 Dose: Not Given Documented by: [id number] Cosigned by: [id number] Admin: 12/11/19 17:44 Dose: Not Given Documented by: [id number] Admin: 12/11/19 12:08 Dose: Not Given Documented by: [id number] Admin: 12/11/19 08:10 Dose: Not Given Documented by: [id number] Admin: 12/10/19 21:38 Dose: Not Given Documented by: [id number] Cosigned by: [id number] Levothyroxine Sodium (Synthroid) 50 mcg PO DAILYBB NIC Stop: 01/10/20 06:29 Last Admin: 12/12/19 06:28 Dose: 50 mcg Documented by: [id number] Admin: 12/11/19 06:12 Dose: 50 mcg Documented by: [id number] Multivitamins/Minerals (Caltrate Plus) 1 tab PO BID NIC Stop: 01/09/20 20:59 Last Admin: 12/12/19 08:33 Dose: 1 tab Documented by: [id number] Admin: 12/11/19 21:15 Dose: 1 tab Documented by: [id number] Admin: 12/11/19 08:11 Dose: 1 tab Documented by: [id number] Admin: 12/10/19 20:11 Dose: 1 tab Documented by: [id number] Nystatin (Nystatin) 1 appln EXT BID NIC Stop: 01/09/20 20:59 Last Admin: 12/12/19 08:34 Dose: 1 appln Documented by: [id number] Admin: 12/11/19 21:15 Dose: 1 appln Documented by: [id number] Admin: 12/11/19 09:56 Dose: 1 appln Documented by: [id number] Admin: 12/10/19 20:12 Dose: 1 appln Documented by: [id number] Oxybutynin Chloride (Ditropan Xl) 10 mg PO DAILY [facility] Stop: 01/10/20 08:59 Last Admin: 12/12/19 08:32 Dose: 10 mg Documented by: [id number] Admin: 12/11/19 08:12 Dose: 10 mg Documented by: [id number] Prednisone (Prednisone) 5 mg PO DAILY [facility] Stop: 01/10/20 08:59 Last Admin: 12/12/19 08:32 Dose: 5 mg Documented by: [id number] Admin: 12/11/19 08:12 Dose: 5 mg Documented by: [id number] Risperidone (Risperdal) 0.5 mg PO BID NIC Stop: 01/11/20 08:59 Last Admin: 12/12/19 09:30 Dose: 0.5 mg Documented by: [id number] Tolterodine Tartrate (Detrol La) 4 mg PO DAILY [facility] Stop: 01/10/20 08:59 Last Admin: 12/12/19 08:32 Dose: 4 mg Documented by: [id number] Admin: 12/11/19 08:11 Dose: 4 mg Documented by: [id number] Coding Level of Care Code 58038 [facility] Intl Hosp Care Lvl 2
--- NOTE | 2019-12-12 15:12 | Electroencephalogram ---
EEG Procedure Note Date of Service December 12, 2019 Start / End Times Start Time: 07:56 End Time: 08:16 Referring Physician Ynes Rivera DO History A 54 year old male admitted with encephalopathy. EEG performed for evaluation of epileptiform activity. Home Medication List Home Medications Medication Instructions Recorded Confirmed Type cyanocobalamin (vitamin B-12) 1,000 mcg PO DAILY 04/18/18 12/10/19 History [Vitamin B-12] vitamin E 400 unit PO DAILY 04/18/18 12/10/19 History calcium carbonate-vitamin D3 1 tab PO BID 11/20/18 12/10/19 History [Calcium 600 + D(3)] duloxetine [Cymbalta] 60 mg PO DAILY 11/20/18 12/10/19 History oxybutynin chloride 10 mg PO DAILY 02/13/19 12/10/19 History prednisone 5 mg PO DAILY 02/13/19 12/10/19 History tolterodine 4 mg PO DAILY 06/02/19 12/10/19 History amlodipine [Norvasc] 5 mg PO DAILY 12/10/19 12/10/19 History amoxicillin 2,000 mg PO UD 12/10/19 12/10/19 History amoxicillin-pot clavulanate 1 tab PO Q12 12/10/19 12/10/19 History ascorbic acid (vitamin C) [Vitamin 1 g PO DAILY 12/10/19 12/10/19 History C] divalproex 1,000 mg PO BID 12/10/19 12/10/19 History fenofibrate nanocrystallized 145 mg PO DAILY 12/10/19 12/10/19 History furosemide [Lasix] 20 mg PO DAILY 12/10/19 12/10/19 History imipramine HCl 50 mg PO TID 12/10/19 12/10/19 History levothyroxine 50 mcg PO DAILY 12/10/19 12/10/19 History linagliptin [Tradjenta] 5 mg PO DAILY 12/10/19 12/10/19 History nystatin 1 applic TOPICAL BID 12/10/19 12/10/19 History omega 1-oiw-dct-fish oil [Fish Oil] 1 cap PO BID 12/10/19 12/10/19 History risperidone 2 mg PO BID 12/10/19 12/10/19 History triamcinolone acetonide 1 applic TOPICAL BID 12/10/19 12/10/19 History Inpatient Medication List Amlodipine Besylate (Norvasc) 5 mg PO DAILY NIC Stop: 01/10/20 08:59 Last Admin: 12/12/19 08:33 Dose: 5 mg Documented by: [id number] Admin: 12/11/19 08:12 Dose: 5 mg Documented by: [id number] Ascorbic Acid (Vitamin C) 1,000 mg PO DAILY NIC Stop: 01/10/20 08:59 Last Admin: 12/12/19 08:33 Dose: 1,000 mg Documented by: [id number] Admin: 12/11/19 08:12 Dose: 1,000 mg Documented by: [id number] Cyanocobalamin (Vitamin B-12) 1,000 mcg PO DAILY NIC Stop: 01/10/20 08:59 Last Admin: 12/12/19 08:33 Dose: 1,000 mcg Documented by: [id number] Admin: 12/11/19 08:12 Dose: 1,000 mcg Documented by: [id number] Divalproex Sodium (Depakote Delay Release) 500 mg PO Q12 NIC Stop: 01/10/20 08:59 Last Admin: 12/12/19 08:33 Dose: 500 mg Documented by: [id number] Admin: 12/11/19 21:15 Dose: 500 mg Documented by: [id number] Admin: 12/11/19 08:12 Dose: 500 mg Documented by: [id number] Divalproex Sodium (Depakote Delay Release) 250 mg PO Q12 NIC Stop: 01/10/20 08:59 Last Admin: 12/12/19 08:35 Dose: 250 mg Documented by: [id number] Admin: 12/11/19 21:15 Dose: 250 mg Documented by: [id number] Admin: 12/11/19 08:13 Dose: 250 mg Documented by: [id number] Duloxetine HCl (Cymbalta) 60 mg PO DAILY NIC Stop: 01/10/20 08:59 Last Admin: 12/12/19 08:32 Dose: 60 mg Documented by: [id number] Admin: 12/11/19 08:12 Dose: 60 mg Documented by: [id number] Fenofibrate (Tricor) 145 mg PO DAILY NIC Stop: 01/10/20 08:59 Last Admin: 12/12/19 08:32 Dose: 145 mg Documented by: [id number] Admin: 12/11/19 08:12 Dose: 145 mg Documented by: [id number] Furosemide (Lasix) 20 mg PO DAILY [facility] Stop: 01/10/20 08:59 Last Admin: 12/12/19 08:32 Dose: 20 mg Documented by: [id number] Admin: 12/11/19 08:12 Dose: 20 mg Documented by: [id number] Daptomycin 350 mg/ Syringe 7 mls @ 3.5 mls/min IV DAILY@1200 NIC; Protocol Stop: 12/18/19 11:59 Last Admin: 12/12/19 12:15 Dose: 3.5 mls/min Documented by: [id number] Admin: 12/11/19 12:20 Dose: 3.5 mls/min Documented by: [id number] Aztreonam 2,000 mg/ Dextrose 110 mls @ 110 mls/hr IV Q8H NIC; Protocol Stop: 12/18/19 11:59 Last Infusion: 12/12/19 13:41 Dose: 0 mls/hr Documented by: [id number] Admin: 12/12/19 12:16 Dose: 110 mls/hr Documented by: [id number] Infusion: 12/12/19 04:43 Dose: 0 mls/hr Documented by: [id number] Admin: 12/12/19 03:39 Dose: 110 mls/hr Documented by: [id number] Infusion: 12/11/19 22:17 Dose: 0 mls/hr Documented by: [id number] Admin: 12/11/19 21:14 Dose: 110 mls/hr Documented by: [id number] Infusion: 12/11/19 14:01 Dose: 0 mls/hr Documented by: [id number] Admin: 12/11/19 12:20 Dose: 110 mls/hr Documented by: [id number] Imipramine HCl (Tofranil) 50 mg PO TID [facility] Stop: 01/09/20 20:59 Last Admin: 12/11/19 14:17 Dose: 50 mg Documented by: [id number] Admin: 12/11/19 08:11 Dose: 50 mg Documented by: [id number] Admin: 12/10/19 20:11 Dose: 50 mg Documented by: [id number] Insulin Aspart (Novolog Flexpen) 0 units SC ACHS [facility] Stop: 01/09/20 20:59 Last Admin: 12/12/19 12:16 Dose: Not Given Documented by: [id number] Admin: 12/12/19 08:36 Dose: Not Given Documented by: [id number] Admin: 12/11/19 21:20 Dose: Not Given Documented by: [id number] Cosigned by: [id number] Admin: 12/11/19 17:44 Dose: Not Given Documented by: [id number] Admin: 12/11/19 12:08 Dose: Not Given Documented by: [id number] Admin: 12/11/19 08:10 Dose: Not Given Documented by: [id number] Admin: 12/10/19 21:38 Dose: Not Given Documented by: [id number] Cosigned by: [id number] Levothyroxine Sodium (Synthroid) 50 mcg PO DAILYBB NIC Stop: 01/10/20 06:29 Last Admin: 12/12/19 06:28 Dose: 50 mcg Documented by: [id number] Admin: 12/11/19 06:12 Dose: 50 mcg Documented by: [id number] Multivitamins/Minerals (Caltrate Plus) 1 tab PO BID NIC Stop: 01/09/20 20:59 Last Admin: 12/12/19 08:33 Dose: 1 tab Documented by: [id number] Admin: 12/11/19 21:15 Dose: 1 tab Documented by: [id number] Admin: 12/11/19 08:11 Dose: 1 tab Documented by: [id number] Admin: 12/10/19 20:11 Dose: 1 tab Documented by: [id number] Nystatin (Nystatin) 1 appln EXT BID NIC Stop: 01/09/20 20:59 Last Admin: 12/12/19 08:34 Dose: 1 appln Documented by: [id number] Admin: 12/11/19 21:15 Dose: 1 appln Documented by: [id number] Admin: 12/11/19 09:56 Dose: 1 appln Documented by: [id number] Admin: 12/10/19 20:12 Dose: 1 appln Documented by: [id number] Oxybutynin Chloride (Ditropan Xl) 10 mg PO DAILY [facility] Stop: 01/10/20 08:59 Last Admin: 12/12/19 08:32 Dose: 10 mg Documented by: [id number] Admin: 12/11/19 08:12 Dose: 10 mg Documented by: [id number] Prednisone (Prednisone) 5 mg PO DAILY [facility] Stop: 01/10/20 08:59 Last Admin: 12/12/19 08:32 Dose: 5 mg Documented by: [id number] Admin: 12/11/19 08:12 Dose: 5 mg Documented by: [id number] Risperidone (Risperdal) 0.5 mg PO BID NIC Stop: 01/11/20 08:59 Last Admin: 12/12/19 09:30 Dose: 0.5 mg Documented by: [id number] Tolterodine Tartrate (Detrol La) 4 mg PO DAILY [facility] Stop: 01/10/20 08:59 Last Admin: 12/12/19 08:32 Dose: 4 mg Documented by: [id number] Admin: 12/11/19 08:11 Dose: 4 mg Documented by: [id number] Discontinued Medications Clindamycin Phosphate 900 mg/ (Dextrose) 56 mls @ 112 mls/hr IV ONE ONE Stop: 12/10/19 16:44 Last Infusion: 12/10/19 17:29 Dose: 0 mls/hr Documented by: [id number] Admin: 12/10/19 16:55 Dose: 112 mls/hr Documented by: [id number] Piperacillin Sod/Tazobactam (Sod 4.5 gm/ Dextrose) 120 mls @ 200 mls/hr IV TODAY@1900 [facility]; Protocol Stop: 12/10/19 19:35 Last Infusion: 12/11/19 00:05 Dose: 0 mls/hr Documented by: [id number] Admin: 12/10/19 20:10 Dose: 200 mls/hr Documented by: [id number] Piperacillin Sod/Tazobactam (Sod 4.5 gm/ Dextrose) 120 mls @ 30 mls/hr IV Q8H [facility]; Protocol Stop: 12/18/19 00:00 Last Infusion: 12/11/19 11:42 Dose: 0 mls/hr Documented by: [id number] Admin: 12/11/19 08:28 Dose: 30 mls/hr Documented by: [id number] Infusion: 12/11/19 05:41 Dose: 0 mls/hr Documented by: [id number] Admin: 12/11/19 00:22 Dose: 30 mls/hr Documented by: [id number] Potassium Chloride (Klor-Con M20) 40 meq PO NOW STA Stop: 12/11/19 10:24 Last Admin: 12/11/19 12:08 Dose: 40 meq Documented by: [id number] Risperidone (Risperdal) 2 mg PO BID NIC Stop: 01/09/20 20:59 Last Admin: 12/11/19 08:11 Dose: 2 mg Documented by: [id number] Admin: 12/10/19 20:11 Dose: 2 mg Documented by: [id number] Description This is a 21 electrode EEG with a single channel dedicated to limited EKG. The electrodes were placed in accordance with the International 10-20 system. REPORT: At the onset of the EEG the patient is awake. The background is symmetric. The posterior dominant rhythm is not well seen. Instead the background predominantly consist of 5-7 theta activity with superimposed beta activity or myogenic artifact. There are portions obscured by movement or myogenic artifact. Photic stimulation does not induce any abnormalities. No stage II sleep transient are seen. Drowsiness is characterized by increased delta activity and reduced myogenic artifact. IMPRESSION: This is an abnormal awake and drowsy routine EEG due to gene ralized background slowing suggestive of a mild non specific encephalopathy. No focal slowing or epileptiform activity is recorded.
--- NOTE | 2019-12-12 16:17 | Consultation Report ---
DATE OF CONSULTATION: 12/10/2019 HISTORY OF PRESENT ILLNESS: A 54-year-old male with multiple medical comorbidities including a past medical history of vasculitis on prednisone, hypertension, hyperlipidemia, chronic kidney disease stage III, schizoaffective disorder, chronic anemia, chronic thrombocytopenia and history of posttraumatic epilepsy, admitted from the Emergency Department on the for erythema in the lower extremities as well as difficulty standing. The patient was also noted to be encephalopathic in the Emergency Department and the history was provided by the patient's sister. Per family, the patient has had a history of altered mental status back in 05/2019 when his valproic acid medication which was used for schizoaffective disorder or posttraumatic epilepsy was abnormal. After discharge in May, he was sent to a rehabilitation hospital and was there for 4 months. He has since been home for the last month and a half. He seemed to be doing well and was able to walk with a walker. He does live at home and has a home health or a visitor that visits him from most of the day. The family assists with his medications. He does have chronic bilateral lower extremity edema, although over the last few days or weeks, there has been increased redness. He was seen and evaluated by his primary care provider and started on Augmentin on 12/03/2019. The edema has persisted and the redness did not improve. There has been no reported fever or chills or nausea or vomiting. On the , the patient was noted to be mumbling more and lethargic. The patient was further brought to the Emergency Department and then admitted with a presumed metabolic encephalopathy secondary to a cellulitis. After admission, a valproic acid level returned at 123. His valproic acid or Depakote medication was held and the discussion was to possibly reduce his dose. His psychotropic medications including risperidone and imipramine were held. Duloxetine was continued. Psychiatry was consulted for further assistance with his psychotropic medications. Neurology was consulted for evaluation of his encephalopathy in the setting of using Depakote. ALLERGIES: FUROSEMIDE, NEOMYCIN, SULFA, ANTIBIOTICS, TRIMETHOPRIM OR BACTRIM, ASPIRIN, CEPHALOSPORINS, DOXYCYCLINE, MOXIFLOXACIN. HOME MEDICATIONS: Include vitamin B12, vitamin E, calcium carbonate plus vitamin D, Cymbalta 60 mg daily, oxybutynin, prednisone 5 mg daily, Norvasc 5 mg daily, ascorbic acid 1 gram daily, Depakote 1000 mg twice daily, Lasix 20 mg daily, imipramine 50 mg 3 times daily, Synthroid 50 mcg daily, nystatin, fish oil, risperidone 2 mg twice daily. PAST MEDICAL HISTORY: Includes bipolar mood disorder, chronic pain, chronic kidney disease, type 2 diabetes, diastolic heart failure, goiter, hyperlipidemia, hyperprolactinemia, hypertension, hypothyroidism, iron deficiency anemia, obstructive sleep apnea, pancreatitis, posttraumatic epilepsy, gastroesophageal reflux disease, schizoaffective disorder, thrombocytopenia, vasculitis. SURGICAL HISTORY: He has a history of a fasciotomy, a total right hip replacement and a history of tracheostomy. FAMILY HISTORY: Unobtainable due to the patient's current altered mentation. SOCIAL HISTORY: He is a nonsmoker. He does have a history of alcohol use. He is single. REVIEW OF SYSTEMS: Review of systems is limited due to the current patient's encephalopathy and negative except as noted above in the HPI. PHYSICAL EXAMINATION: VITAL SIGNS: 137/76, pulse is 61, respiratory rate 22, temperature is 36.6 and oxygen saturation is 100% on 2 liters nasal cannula. EXAM: Constitutional:appears older than stated age, obese, no distress Face: normocephalic and atraumatic Eyes: normal lids, normal conjunctiva Neck: supple Respiratory: normal effort Cardiovascular: normal pulses Abdomen: non distended Skin: erythema on distal legs bilateral and tender to palpation Psychiatric: normal mood and normal affect NEUROLOGIC EXAMINATION: Appearance: no acute distress Orientation: awake, alert and oriented to person and age Mental Status: alert Attention: normal Language: no aphasia Speech: no dysarthria Cranial Nerves: CN 2 - no visual defect on confrontation and pupils round, equal CN 3, 4, 6 - extra-ocular movements intact CN 5 - facial sensation intact CN 7 - no facial asymmetry CN 8 - intact hearing CN 9, 10 - palate symmetric CN 11 - good shoulder shrug CN 12 - tongue midline Gait: deferred Coordination: no ataxia with finger to nose testing, no tremor Sensory: intact and symmetric to light touch Muscle Tone: normal Muscle exam: No focal weakness Reflexes: Hyopactive DIAGNOSTIC TESTING AND LABORATORY DATA: WBC 3.87, hemoglobin 9.6, hematocrit 31.0, platelet count is 59. Sodium is 142, potassium 3.6, chloride 103, carbon dioxide 36, BUN is 19, creatinine is 1.90, calcium is 9.7, total CK is 31. CRP is 5.63. Urinalysis shows negative bacteria and 1-5 white blood cells. Urine opiates is negative. Urine drug screen is negative. TSH is 7.21. Prolactin is 0.21, free T4 is 1.05. Ammonia is 25.1. Magnesium is 2.0, phosphorus is 3.1. Chest x-ray showed cardiomegaly, with mildly decreased pulmonary vascular congestion. Probable atelectasis. Venous Doppler study showed no DVT within the right or left lower extremity. Head CT noncontrast showed no acute intracranial abnormality. Routine EEG showed generalized background slowing suggestive of a mild nonspecific encephalopathy. No epileptiform discharges or focal slowing was recorded. Blood cultures preliminary have showed no growth to date. A 54-year-old male with multiple medical comorbidities admitted to the hospital for a presumed metabolic/infectious encephalopathy) Vs polypharmacy. He has been admitted before with similar presentation. Routine EEG showed nonspecific slowing with no epileptiform activity. Ammonia level was normal. CT head imaging shows no signs of acute intracranial process. Patient does not appear encephalopathic at this time. Would recommend to continue current dose of home Depakote as I do not believe this is attributed to his encephalopathy. Please contact me with any further questions or concerns. MTDD
[2019-12-12] MEDS: risperiDONE 1 MG TABLET PO SCH (20:24)
[2019-12-12] MEDS: IMIPRAMINE HCL 50 MG TAB PO SCH (20:25)
[2019-12-13] MEDS: AMLODIPINE BESYLATE 5 MG TAB PO SCH (01:46)
[2019-12-13] MEDS: AZTREONAM 2,000 MG in DEXTROSE 5% 100 ML IV SCH ×3 (04:56→19:29)
[2019-12-13] MEDS: LEVOTHYROXINE SODIUM 50 MCG TABLET PO SCH (06:00)
[2019-12-13 08:01] LABS: Hematocrit (blood only) 33.1 % (42-52); Hemoglobin 10.2 g/dL (14.0-18.0); Mean Corpuscular Hemoglobin 28.3 pg (25-34); Mean Corpuscular Hgb Conc 30.8 g/dL (32-36); Mean Corpuscular Volume 91.9 fL (80-100); RDW Coefficient of Variation 19.8 % (11.5-14.5); RDW Standard Deviation 65.5 fL (36.4-46.3); White Blood Count 3.82 K/uL (4.8-10.8)
[2019-12-13 08:25] LABS: Mean Platelet Volume 8.6 fL (7.4-10.4); Platelet Count 51 K/uL (130-400)
[2019-12-13 08:36] LABS: BUN Creatinine Ratio 10.9 (10-20); Calcium 11.2 mg/dl (8.5-10.1); Creatinine Clr Calc Pharmacy 56.4 ml/min; Est GFR (African American) 49.7; Est GFR (Non-African American) 42.9; Potassium 3.7 mmol/L (3.5-5.1)
[2019-12-13] MEDS: TOLTERODINE TARTRATE LA 4 MG CAPCR PO SCH (10:06)
[2019-12-13] MEDS: CALCIUM 600MG + VIT D 400 IU TAB PO SCH (10:07)
[2019-12-13] MEDS: predniSONE 5 MG TAB PO SCH (10:07)
[2019-12-13] MEDS: FUROSEMIDE 20 MG TAB PO SCH (10:07)
[2019-12-13] MEDS: IMIPRAMINE HCL 50 MG TAB PO SCH ×3 (10:08→20:27)
[2019-12-13] MEDS: DULOXETINE HCL 60 MG CAP PO SCH (10:08)
[2019-12-13] MEDS: FENOFIBRATE NANOCRYSTALLIZED 145 MG TABLET PO SCH (10:08)
[2019-12-13] MEDS: CYANOCOBALAMIN 500 MCG TABLET (VITAMIN B-12) PO SCH (10:08)
[2019-12-13] MEDS: DIVALPROEX DELAY RELEASE 250 MG TABEC PO SCH ×2 (10:09→20:26)
[2019-12-13] MEDS: DIVALPROEX DELAY RELEASE 500 MG TAB PO SCH ×2 (10:09→20:25)
[2019-12-13] MEDS: ASCORBIC ACID 500 MG TAB PO SCH (10:10)
[2019-12-13] MEDS: OXYBUTYNIN CHLORIDE XL 5 MG TABCR PO SCH (10:10)
[2019-12-13] MEDS: NYSTATIN CR 15 GM TUBE EXT SCH ×2 (10:12→20:26)
[2019-12-13] MEDS: INSULIN ASPART 100 UNITS/ML 3 ML PEN SC SCH ×4 (10:17→20:37)
--- NOTE | 2019-12-13 11:09 | Hospitalist Progress Note ---
Date of Service December 13, 2019 Assessment & Plan (1) Hypercalcemia: Elevated Ca corrected to 12.7 today, and was 10.9 on admission. Normal iPTH and normal 25 OH stores. COnsider calcium supplements as a cause and these have been stopped. Also, elevated TSH in recent months; may be contributing to elevated Ca via bone turnover. No reports of aching at this time, mental status at baseline. Held supplements and will recheck levels in am. If still elevated will consider IVF, and other treatments. (2) Acute metabolic encephalopathy: resolved with abx and restarted imipramine and risperidone at reduced dosage. He is at baseline mental status and doing very well. (3) Cellulitis: resolved, will plan to transition antibiotics to PO for remainder of the course. (4) Chronic diastolic heart failure: Chronic diastolic dysfunction. reported chronic BLE. Repeat CXR is clearer today, lungs clear, cont home Lasix PO. (5) Schizoaffective disorder, bipolar type: psych consulted. Agrees with depakote, and added risperidone small dose at bedtime. Imipramine restarted and he says he is feeling great overall. Will keep current medications and dosages. (6) CKD (chronic kidney disease), stage III: Around baseline creatinine. Monitor renal functions, avoid nephrotoxic agents when possible (7) Vasculitis: Cont daily prednisone per home regimen. (8) Hypertension: BP stable, Continue amlodipine (9) Thrombocytopenia: Slight worsening of chronic thrombocytopenia likely 2/2 to consumption of platelets in acute infection. Hold blood thinners, monitor CBC. Continues to remain 51K today. (10) Diabetes mellitus, type II: A1c: 7.0 on 11/12/2019 Hold Tradjenta NovoLog sliding scale per protocol Currently at inpatient goal (11) Hypothyroidism: Continue levothyroxine per home regimen. Reassess TSH and Ft4 in am as hyperthyroidism may contribute to hypercalcemia via increased bone turnover. (12) Morbid obesity: (13) JHOANA (obstructive sleep apnea): Does not tolerate CPAP. (14) DVT prophylaxis: SCDs in thrombocytopenia Full Code Dispo-uncertain at this time. Ynes Rivera DO [facility] Hospitalist Admission and Anticipated Discharge Date Admission Date: December 10, 2019 Subjective doing well denies pain alert and at mental baseline. tolerating PO Review of Systems Review of Systems: All systems reviewed & are unremarkable except as noted in Subjective Physical Exam Physical Exam: CONSTITUTIONAL: obese, oriented, alert, NAD EYES: pupils are round and equal bilaterally, normal conjunctivae, no scleral icterus ENT: external ear and nose normal, MMM RESPIRATORY: clear to auscultation bilaterally, no crackles, rales or wheezes CARDIOVASCULAR: regular rate and rhythm, S1 and 2 heard without murmurs, gallops or rubs, no JVD, no peripheral edema GASTROINTESTINAL: soft, nondistended, no guarding to palpation. MUSCULOSKELETAL: lethargic, unable to assess. head is normocephalic and atraumatic SKIN: warm and dry, feet are no longer puffy, there is no redness or pinkness anywhere on his legs. NEURO: mentating clearly, alert, oriented x 3, moves all extremities equally. Physically deconditioned but no gross focal neuro deficits. Results & Data Results & Data ([facility]) Vital Signs (Past 12 Hours) Vital Signs Temp Pulse Resp BP BP Pulse Ox 12/13/19 07:58 36.6 C 63 20 171/83 H 93 12/13/19 02:50 146/88 H 12/13/19 00:20 170/115 H 12/13/19 00:07 36.4 C L 72 19 187/108 H 98 Laboratory Results Short CBC 12/13/19 Range/Units 07:49 WBC 3.82 L (4.8-10.8) K/uL Hgb 10.2 L (14.0-18.0) g/dL Hct 33.1 L (42-52) % Plt Count 51 L (130-400) K/uL BMP 12/13/19 07:49 Sodium 139 Potassium 3.7 Chloride 99 Carbon Dioxide 39 H BUN 19 H Creatinine 1.74 H Glucose 100 H Calcium 11.2 H D Medications Administered Current Inpatient Medications Acetaminophen (Tylenol) 650 mg PO Q4H PRN PRN Reason: Pain or Fever Stop: 01/09/20 18:23 Amlodipine Besylate (Norvasc) 5 mg PO DAILY [facility] Stop: 01/12/20 01:14 Last Admin: 12/13/19 01:46 Dose: 5 mg Documented by: Ascorbic Acid (Vitamin C) 1,000 mg PO DAILY [facility] Stop: 01/10/20 08:59 Last Admin: 12/13/19 10:10 Dose: 1,000 mg Documented by: Cyanocobalamin (Vitamin B-12) 1,000 mcg PO DAILY NIC Stop: 01/10/20 08:59 Last Admin: 12/13/19 10:08 Dose: 1,000 mcg Documented by: Dextrose (Dextrose 50%) 25 - 50 ml IV UD PRN; Protocol PRN Reason: Hypoglycemia Protocol Stop: 01/09/20 18:35 Divalproex Sodium (Depakote Delay Release) 500 mg PO Q12 NIC Stop: 01/10/20 08:59 Last Admin: 12/13/19 10:09 Dose: 500 mg Documented by: Divalproex Sodium (Depakote Delay Release) 250 mg PO Q12 NIC Stop: 01/10/20 08:59 Last Admin: 12/13/19 10:09 Dose: 250 mg Documented by: Duloxetine HCl (Cymbalta) 60 mg PO DAILY NIC Stop: 01/10/20 08:59 Last Admin: 12/13/19 10:08 Dose: 60 mg Documented by: Fenofibrate (Tricor) 145 mg PO DAILY NIC Stop: 01/10/20 08:59 Last Admin: 12/13/19 10:08 Dose: 145 mg Documented by: Furosemide (Lasix) 20 mg PO DAILY NIC Stop: 01/10/20 08:59 Last Admin: 12/13/19 10:07 Dose: 20 mg Documented by: Glucagon (Glucagen) 1 mg SQ UD PRN; Protocol PRN Reason: Hypoglycemia Protocol Stop: 01/09/20 18:35 Glucose (Dex4 Glucose) 4 - 8 tabs PO UD PRN; Protocol PRN Reason: Hypoglycemia Protocol Stop: 01/09/20 18:35 Glucose (Glucose 40%) 15 - 30 gm PO UD PRN; Protocol PRN Reason: Hypoglycemia Protocol Stop: 01/09/20 18:35 Daptomycin 350 mg/ Syringe 7 mls @ 3.5 mls/min IV DAILY@1200 [facility]; Protocol Stop: 12/18/19 11:59 Last Admin: 12/12/19 12:15 Dose: 3.5 mls/min Documented by: Aztreonam 2,000 mg/ Dextrose 110 mls @ 110 mls/hr IV Q8H NIC; Protocol Stop: 12/18/19 11:59 Last Infusion: 12/13/19 05:59 Dose: Infused Documented by: Imipramine HCl (Tofranil) 50 mg PO TID NIC Stop: 01/09/20 20:59 Last Admin: 12/13/19 10:08 Dose: 50 mg Documented by: Insulin Aspart (Novolog Flexpen) 0 units SC ACHS NIC Stop: 01/09/20 20:59 Last Admin: 12/13/19 10:17 Dose: Not Given Documented by: Levothyroxine Sodium (Synthroid) 50 mcg PO DAILYBB NIC Stop: 01/10/20 06:29 Last Admin: 12/13/19 06:00 Dose: 50 mcg Documented by: Miscellaneous (Carbohydrates For Hypoglycemia) 15 - 30 gm PO UD PRN PRN Reason: Hypoglycemia Protocol Stop: 01/09/20 18:35 Multivitamins/Minerals (Caltrate Plus) 1 tab PO BID NIC Stop: 01/09/20 20:59 Last Admin: 12/13/19 10:07 Dose: 1 tab Documented by: Nystatin (Nystatin) 1 appln EXT BID [facility] Stop: 01/09/20 20:59 Last Admin: 12/13/19 10:12 Dose: 1 appln Documented by: Oxybutynin Chloride (Ditropan Xl) 10 mg PO DAILY NIC Stop: 01/10/20 08:59 Last Admin: 12/13/19 10:10 Dose: 10 mg Documented by: Prednisone (Prednisone) 5 mg PO DAILY [facility] Stop: 01/10/20 08:59 Last Admin: 12/13/19 10:07 Dose: 5 mg Documented by: Risperidone (Risperdal) 1 mg PO HS [facility] Stop: 01/11/20 20:59 Last Admin: 12/12/19 20:24 Dose: 1 mg Documented by: Tolterodine Tartrate (Detrol La) 4 mg PO DAILY [facility] Stop: 01/10/20 08:59 Last Admin: 12/13/19 10:06 Dose: 4 mg Documented by:
[2019-12-13 11:12] LABS: Albumin Level 2.1 gm/dl (3.4-5.0); BUN Creatinine Ratio 11.9 (10-20); Bilirubin Direct 0.2 mg/dl (0-0.2); Calcium 11.2 mg/dl (8.5-10.1); Creatinine Clr Calc Pharmacy 57.7 ml/min; Est GFR (African American) 51.1; Est GFR (Non-African American) 44.1; Potassium 3.8 mmol/L (3.5-5.1)
[2019-12-13 11:15] LABS: Bilirubin,Total 0.4 mg/dl (0.2-1)
[2019-12-13] MEDS: DAPTOmycin 350 MG in SYRINGE 0 ML IV SCH (13:53)
[2019-12-13] MEDS: risperiDONE 1 MG TABLET PO SCH (20:27)
[2019-12-14] MEDS: AZTREONAM 2,000 MG in DEXTROSE 5% 100 ML IV SCH ×2 (04:27→13:38)
[2019-12-14 05:36] LABS: Hematocrit (blood only) 31.6 % (42-52); Hemoglobin 9.8 g/dL (14.0-18.0); Mean Corpuscular Volume 93.5 fL (80-100); RDW Coefficient of Variation 19.6 % (11.5-14.5); RDW Standard Deviation 66.4 fL (36.4-46.3); Red Blood Count 3.38 M/uL (4.7-6.1); White Blood Count 3.18 K/uL (4.8-10.8)
[2019-12-14 05:45] LABS: Mean Platelet Volume 9.2 fL (7.4-10.4); Platelet Count 57 K/uL (130-400)
[2019-12-14] MEDS: LEVOTHYROXINE SODIUM 50 MCG TABLET PO SCH (05:46)
[2019-12-14 06:04] LABS: Albumin Level 2.2 gm/dl (3.4-5.0); BUN Creatinine Ratio 12.4 (10-20); Bilirubin Direct 0.2 mg/dl (0-0.2); Calcium 11.2 mg/dl (8.5-10.1); Est GFR (African American) 50.4; Est GFR (Non-African American) 43.5; Potassium 3.9 mmol/L (3.5-5.1)
[2019-12-14 06:25] LABS: Bilirubin,Total 0.4 mg/dl (0.2-1); T4 Free Thyroxine 0.66 ng/dl (0.8-1.6); Thyroid Stimulating Hormone 0.789 uIu/ml (0.300-4.500); Total Protein 7.1 gm/dl (6.4-8.2)
[2019-12-14] MEDS: DIVALPROEX DELAY RELEASE 500 MG TAB PO SCH ×2 (08:58→21:54)
[2019-12-14] MEDS: DULOXETINE HCL 60 MG CAP PO SCH (08:58)
[2019-12-14] MEDS: DIVALPROEX DELAY RELEASE 250 MG TABEC PO SCH ×2 (08:59→21:54)
[2019-12-14] MEDS: TOLTERODINE TARTRATE LA 4 MG CAPCR PO SCH (08:59)
[2019-12-14] MEDS: OXYBUTYNIN CHLORIDE XL 5 MG TABCR PO SCH (09:00)
[2019-12-14] MEDS: FUROSEMIDE 20 MG TAB PO SCH (09:00)
[2019-12-14] MEDS: AMLODIPINE BESYLATE 5 MG TAB PO SCH (09:01)
[2019-12-14] MEDS: IMIPRAMINE HCL 50 MG TAB PO SCH ×3 (09:02→21:54)
[2019-12-14] MEDS: FENOFIBRATE NANOCRYSTALLIZED 145 MG TABLET PO SCH (09:02)
[2019-12-14] MEDS: predniSONE 5 MG TAB PO SCH (09:02)
[2019-12-14] MEDS: ASCORBIC ACID 500 MG TAB PO SCH (09:03)
[2019-12-14] MEDS: CYANOCOBALAMIN 500 MCG TABLET (VITAMIN B-12) PO SCH (09:03)
[2019-12-14] MEDS: INSULIN ASPART 100 UNITS/ML 3 ML PEN SC SCH ×4 (09:51→21:59)
[2019-12-14] MEDS: CARBOHYDRATES FOR HYPOGLYCEMIA PO PRN (12:12)
[2019-12-14] MEDS: DAPTOmycin 350 MG in SYRINGE 0 ML IV SCH (13:38)
[2019-12-14] MEDS: NYSTATIN CR 15 GM TUBE EXT SCH ×2 (13:47→21:54)
--- NOTE | 2019-12-14 15:29 | Hospitalist Progress Note ---
Date of Service December 14, 2019 Assessment & Plan (1) Hypercalcemia: Elevated Ca corrected to 12.7, and was 10.9 on admission. Normal iPTH and normal 25 OH stores. Consider calcium supplements as a cause and these have been stopped. Also, elevated TSH in recent months but then much lower in just a couple of days; may be contributing to elevated Ca via bone turnover. No reports of aching at this time, mental status at baseline. Although this is elevated, I don't see the need for acute treatments at this level with essentially no symptoms. Would repeat labwork and continue workup as outpatient with PCP. PTHrp and 1,25 vit D were ordered as reference labs. Doubt hypercalcemia of malignancy, and instead suspect this may have to do with recent dehydration and illness. (2) Acute metabolic encephalopathy: resolved with abx and restarted imipramine and risperidone at reduced dosage. He is at baseline mental status and doing very well. (3) Cellulitis: resolved on Dapto and Aztreonam. Finish course with Augmentin started 12/13 (4) Chronic diastolic heart failure: Chronic diastolic dysfunction. reported chronic BLE. Repeat CXR is clearer today, lungs clear, cont home Lasix PO. (5) Schizoaffective disorder, bipolar type: psych consulted. Agrees with depakote, and added risperidone small dose at bedtime. Some agitation today but very mild. Will increase risperidone to 2mg PO qHS. Imipramine restarted and he says he is feeling great overall. (6) CKD (chronic kidney disease), stage III: Around baseline creatinine. Monitor renal functions, avoid nephrotoxic agents when possible (7) Vasculitis: Cont daily prednisone per home regimen. (8) Hypertension: BP stable, Continue amlodipine (9) Diabetes mellitus, type II: A1c: 7.0 on 11/12/2019 Hold Tradjenta NovoLog sliding scale per protocol Currently at inpatient goal (10) Hypothyroidism: Continue levothyroxine per home regimen. TSH has come down and is borderline hyperthyroid. This may be related to recent illness, and may also be influencing calcium. (11) Pancytopenia: Slight worsening of chronic thrombocytopenia likely 2/2 to consumption of platelets in acute infection. Hold blood thinners, monitor CBC. Level is 57K (12) Morbid obesity: (13) JHOANA (obstructive sleep apnea): Does not tolerate CPAP. (14) DVT prophylaxis: SCDs in thrombocytopenia Full Code Dispo-uncertain at this time. Ynes Rivera DO [facility] Hospitalist Admission and Anticipated Discharge Date Admission Date: December 10, 2019 Subjective Doing well today Persistent chronic urinary incontinence reports chronic constipation and fatigue when considering symptoms of hypercalcemia calcium supplements were just stopped yesterday Review of Systems Review of Systems: All systems reviewed & are unremarkable except as noted in Subjective Physical Exam Physical Exam: CONSTITUTIONAL: obese, oriented, alert, NAD EYES: pupils are round and equal bilaterally, normal conjunctivae, no scleral icterus ENT: external ear and nose normal, MMM RESPIRATORY: clear to auscultation bilaterally, no crackles, rales or wheezes CARDIOVASCULAR: regular rate and rhythm, S1 and 2 heard without murmurs, gallops or rubs, no JVD, no peripheral edema GASTROINTESTINAL: soft, nondistended, no guarding to palpation. MUSCULOSKELETAL: lethargic, unable to assess. head is normocephalic and atraumatic SKIN: warm and dry, feet are no longer puffy, there is no redness or pinkness anywhere on his legs. NEURO: mentating clearly, alert, oriented x 3, moves all extremities equally. Physically deconditioned but no gross focal neuro deficits. Results & Data Results & Data ([facility]) Vital Signs (Past 12 Hours) Vital Signs Temp Pulse Resp BP Pulse Ox 12/14/19 07:30 36.3 C L 60 18 173/99 H 98 Laboratory Results Short CBC 12/14/19 Range/Units 05:20 WBC 3.18 L (4.8-10.8) K/uL Hgb 9.8 L (14.0-18.0) g/dL Hct 31.6 L (42-52) % Plt Count 57 L (130-400) K/uL BMP 12/14/19 05:20 Sodium 139 Potassium 3.9 Chloride 99 Carbon Dioxide 38 H BUN 21 H Creatinine 1.72 H Glucose 105 H Calcium 11.2 H Liver Function 12/14/19 Range/Units 05:20 Total Bilirubin 0.4 (0.2-1) mg/dl Direct Bilirubin 0.2 (0-0.2) mg/dl AST 21 (15-37) U/L ALT 11 L (12-78) U/L Alkaline Phosphatase 73 (45-117) U/L Albumin 2.2 L (3.4-5.0) gm/dl Medications Administered Current Inpatient Medications Acetaminophen (Tylenol) 650 mg PO Q4H PRN PRN Reason: Pain or Fever Stop: 01/09/20 18:23 Amlodipine Besylate (Norvasc) 5 mg PO DAILY NIC Stop: 01/12/20 01:14 Last Admin: 12/14/19 09:01 Dose: 5 mg Documented by: Ascorbic Acid (Vitamin C) 1,000 mg PO DAILY NIC Stop: 01/10/20 08:59 Last Admin: 12/14/19 09:03 Dose: 1,000 mg Documented by: Cyanocobalamin (Vitamin B-12) 1,000 mcg PO DAILY NIC Stop: 01/10/20 08:59 Last Admin: 12/14/19 09:03 Dose: 1,000 mcg Documented by: Dextrose (Dextrose 50%) 25 - 50 ml IV UD PRN; Protocol PRN Reason: Hypoglycemia Protocol Stop: 01/09/20 18:35 Divalproex Sodium (Depakote Delay Release) 500 mg PO Q12 NIC Stop: 01/10/20 08:59 Last Admin: 12/14/19 08:58 Dose: 500 mg Documented by: Divalproex Sodium (Depakote Delay Release) 250 mg PO Q12 NIC Stop: 01/10/20 08:59 Last Admin: 12/14/19 08:59 Dose: 250 mg Documented by: Duloxetine HCl (Cymbalta) 60 mg PO DAILY NIC Stop: 01/10/20 08:59 Last Admin: 12/14/19 08:58 Dose: 60 mg Documented by: Fenofibrate (Tricor) 145 mg PO DAILY NIC Stop: 01/10/20 08:59 Last Admin: 12/14/19 09:02 Dose: 145 mg Documented by: Furosemide (Lasix) 20 mg PO DAILY NIC Stop: 01/10/20 08:59 Last Admin: 12/14/19 09:00 Dose: 20 mg Documented by: Glucagon (Glucagen) 1 mg SQ UD PRN; Protocol PRN Reason: Hypoglycemia Protocol Stop: 01/09/20 18:35 Glucose (Dex4 Glucose) 4 - 8 tabs PO UD PRN; Protocol PRN Reason: Hypoglycemia Protocol Stop: 01/09/20 18:35 Glucose (Glucose 40%) 15 - 30 gm PO UD PRN; Protocol PRN Reason: Hypoglycemia Protocol Stop: 01/09/20 18:35 Daptomycin 350 mg/ Syringe 7 mls @ 3.5 mls/min IV DAILY@1200 [facility]; Protocol Stop: 12/18/19 11:59 Last Admin: 12/14/19 13:38 Dose: 3.5 mls/min Documented by: Aztreonam 2,000 mg/ Dextrose 110 mls @ 110 mls/hr IV Q8H [facility]; Protocol Stop: 12/18/19 11:59 Last Infusion: 12/14/19 14:47 Dose: Infused Documented by: Imipramine HCl (Tofranil) 50 mg PO TID [facility] Stop: 01/09/20 20:59 Last Admin: 12/14/19 13:46 Dose: 50 mg Documented by: Insulin Aspart (Novolog Flexpen) 0 units SC ACHS [facility] Stop: 01/09/20 20:59 Last Admin: 12/14/19 12:58 Dose: Not Given Documented by: Levothyroxine Sodium (Synthroid) 50 mcg PO DAILYBB [facility] Stop: 01/10/20 06:29 Last Admin: 12/14/19 05:46 Dose: 50 mcg Documented by: Miscellaneous (Carbohydrates For Hypoglycemia) 15 - 30 gm PO UD PRN PRN Reason: Hypoglycemia Protocol Stop: 01/09/20 18:35 Last Admin: 12/14/19 12:12 Dose: 15 gm Documented by: Nystatin (Nystatin) 1 appln EXT BID [facility] Stop: 01/09/20 20:59 Last Admin: 12/14/19 13:47 Dose: 1 appln Documented by: Oxybutynin Chloride (Ditropan Xl) 10 mg PO DAILY [facility] Stop: 01/10/20 08:59 Last Admin: 12/14/19 09:00 Dose: 10 mg Documented by: Prednisone (Prednisone) 5 mg PO DAILY [facility] Stop: 01/10/20 08:59 Last Admin: 12/14/19 09:02 Dose: 5 mg Documented by: Risperidone (Risperdal) 1 mg PO HS [facility] Stop: 01/11/20 20:59 Last Admin: 12/13/19 20:27 Dose: 1 mg Documented by: Tolterodine Tartrate (Detrol La) 4 mg PO DAILY [facility] Stop: 01/10/20 08:59 Last Admin: 12/14/19 08:59 Dose: 4 mg Documented by:
[2019-12-14] MEDS: risperiDONE 1 MG TABLET PO SCH (22:06)
[2019-12-15] MEDS: LEVOTHYROXINE SODIUM 50 MCG TABLET PO SCH (06:00)
[2019-12-15 07:51] LABS: Hematocrit (blood only) 32.5 % (42-52); Hemoglobin 10.1 g/dL (14.0-18.0); Mean Corpuscular Hemoglobin 28.5 pg (25-34); Mean Corpuscular Hgb Conc 31.1 g/dL (32-36); Mean Corpuscular Volume 91.8 fL (80-100); RDW Standard Deviation 66.9 fL (36.4-46.3); Red Blood Count 3.54 M/uL (4.7-6.1)
[2019-12-15 07:55] LABS: Mean Platelet Volume 8.6 fL (7.4-10.4); Platelet Count 47 K/uL (130-400)
[2019-12-15] MEDS: risperiDONE 1 MG TABLET PO SCH ×2 (07:58→21:15)
[2019-12-15] MEDS: AMOXICILLIN/CLAVULANATE 875 MG TAB PO SCH ×2 (07:58→16:49)
[2019-12-15] MEDS: DIVALPROEX DELAY RELEASE 500 MG TAB PO SCH ×2 (07:59→21:14)
[2019-12-15] MEDS: OXYBUTYNIN CHLORIDE XL 5 MG TABCR PO SCH (07:59)
[2019-12-15] MEDS: CYANOCOBALAMIN 500 MCG TABLET (VITAMIN B-12) PO SCH (07:59)
[2019-12-15] MEDS: ASCORBIC ACID 500 MG TAB PO SCH (08:00)
[2019-12-15] MEDS: predniSONE 5 MG TAB PO SCH (08:00)
[2019-12-15] MEDS: DULOXETINE HCL 60 MG CAP PO SCH (08:00)
[2019-12-15] MEDS: IMIPRAMINE HCL 50 MG TAB PO SCH ×3 (08:01→21:15)
[2019-12-15] MEDS: TOLTERODINE TARTRATE LA 4 MG CAPCR PO SCH (08:01)
[2019-12-15] MEDS: DIVALPROEX DELAY RELEASE 250 MG TABEC PO SCH ×2 (08:02→21:14)
[2019-12-15] MEDS: AMLODIPINE BESYLATE 5 MG TAB PO SCH (08:02)
[2019-12-15] MEDS: FUROSEMIDE 20 MG TAB PO SCH (08:02)
[2019-12-15] MEDS: FENOFIBRATE NANOCRYSTALLIZED 145 MG TABLET PO SCH (08:03)
[2019-12-15] MEDS: NYSTATIN CR 15 GM TUBE EXT SCH ×2 (08:03→21:14)
[2019-12-15 08:24] LABS: BUN Creatinine Ratio 12.7 (10-20); Calcium 11.2 mg/dl (8.5-10.1); Creatinine Clr Calc Pharmacy 53.3 ml/min; Est GFR (African American) 46.5; Est GFR (Non-African American) 40.1; Potassium 3.5 mmol/L (3.5-5.1)
[2019-12-15] MEDS: CARBOHYDRATES FOR HYPOGLYCEMIA PO PRN ×2 (08:28→08:49)
[2019-12-15] MEDS: INSULIN ASPART 100 UNITS/ML 3 ML PEN SC SCH ×4 (09:52→21:27)
--- NOTE | 2019-12-15 22:50 | Hospitalist Progress Note ---
Date of Service December 15, 2019 Assessment & Plan (1) Cellulitis: Presented with cellulitis of right lower extremity. Treated initially with clindamycin, then piperacillin / tazobactam. Transitioned to oral therapy with amoxicillin / clavulanic acid. (2) Acute metabolic encephalopathy: Confused at time of admission. No acute findings on CT of head. Probable metabolic encephalopathy / delirium. Possible etiologies: infection hypercalcemia meds (valproic acid level 123 at time of admission. Mental status improved. Follow. (3) Hypercalcemia: Uncorrected serum calcium as high as 10.16 November 2018 and as high as 11.May. Uncorrected serum calcium as high a/s 11.2 during this hospital stay on 12/12 - 12/14.. Corrected sodium as high as 12.7 on Ionized calcium as high as 1.53 on 12/12. 25-OH D = 30. 1,25 OH-D pending. PTH = 67. PTH-RP pending. Review outpt records. Follow. Further evaluation / consultation as necessary. (4) Chronic diastolic heart failure: Chronic left ventricular diastolic heart failure. Admission chest x-ray demonstrated pulmonary vascular congestion, but BNP normal. Appearance of vascular congestion may have been partly due to poor inspiratory effort. Continue diuretic therapy. (5) Hypertension: Hemodynamically stable. Continue amlodipine. (6) JHOANA (obstructive sleep apnea): Intolerant of CPAP / BiPAP. (7) Chronic kidney disease (CKD), stage III (moderate): Creatinine today = 1.84. Follow. 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 Linagliptin held. NovoLog ordered PRN. Hypoglycemic last 2 mornings. Check Hgb A1c. Follow and titrate therapy. (9) Hypothyroidism: TSH 7.21 on 12/09; elevation may have been secondary to acute illness. TSH 0.789 on 12/13. Continue levothyroxine. (10) Morbid obesity: Wt 114, BMI 40. Heart healthy / diabetic diet. (11) Vasculitis: ? etiology. Check old records. Continue prednisone. (12) Pancytopenia: Chronic. ? underlying etiology. Check old records. (13) Schizoaffective disorder, bipolar type: Continue usual meds. (14) DVT prophylaxis: No anticoagulants due to thrombocytopenia. SCD's. Ambulate. (15) Discharge planning issues: Anticipated need for skilled care. Family Medicine follow-up with Dr. Watters. Admission and Anticipated Discharge Date Admission Date: December 10, 2019 Subjective Recheck for multiple problems. Patient seen in their room around 1430. No fever. Right leg feels better. Hypoglycemic last 2 mornings. Pt states that PO intake good, but staff report variable PO intake. Review of Systems: Constitutional- no fever. Cardiac- no chest pain. Pulmonary- no cough or SOB. GI- no nausea, vomiting, diarrhea, melena, hematochezia. - no urinary symptoms. Otherwise, as noted above. Physical Exam Constitutional: no acute distress Respiratory: no respiratory distress Auscultation: lungs clear to auscultation bilaterally Cardiovascular: Rate/Rhythm: regular rate and regular rhythm Heart Sounds: no gallop Vessels: no JVD Extremities: + edema (1+ pretibial); no calf tenderness Gastrointestinal (Abdomen): normal bowel sounds, soft, nontender, no hepatosplenomegaly Musculoskeletal: Extremities: no cyanosis Skin: no rashes, warm and dry mild erythema lower extremities R > L Psychiatric: Orientation: alert Results & Data Results & Data ([facility]) Vital Signs (Past 12 Hours) Vital Signs Temp Pulse Resp BP Pulse Ox 12/15/19 14:54 36.6 C 64 18 134/83 93 Laboratory Results Laboratory Results - last 24 hr 12/15/19 12/15/19 12/15/19 07:34 07:34 07:34 WBC 3.10 L RBC 3.54 L Hgb 10.1 L Hct 32.5 L MCV 91.8 MCH 28.5 MCHC 31.1 L RDW Std Deviation 66.9 H RDW Coeff of Debra 20.0 H Plt Count 47 L MPV 8.6 Sodium Potassium Chloride Carbon Dioxide Anion Gap BUN Creatinine Est Cr Clr Drug Dosing Est GFR ( Amer) Est GFR (Non-Af Amer) BUN/Creatinine Ratio Glucose POC Glucose Calcium Ionized Calcium Cancelled Vit D 1,25-Dihyd Total Pending 1,25 Dihydroxy Vit D2 Pending 1,25 Dihydroxy Vit D3 Pending PTH Related Protein Pending 12/15/19 12/15/19 12/15/19 07:34 08:15 08:24 WBC RBC Hgb Hct MCV MCH MCHC RDW Std Deviation RDW Coeff of Debra Plt Count MPV Sodium 138 Potassium 3.5 Chloride 98 Carbon Dioxide 39 H Anion Gap 1.0 L BUN 23 H Creatinine 1.84 H Est Cr Clr Drug Dosing 53.3 Est GFR ( Amer) 46.5 Est GFR (Non-Af Amer) 40.1 BUN/Creatinine Ratio 12.7 Glucose 86 POC Glucose 57 L* Calcium 11.2 H Ionized Calcium 1.44 H Vit D 1,25-Dihyd Total 1,25 Dihydroxy Vit D2 1,25 Dihydroxy Vit D3 PTH Related Protein 12/15/19 12/15/19 12/15/19 08:47 09:12 12:20 WBC RBC Hgb Hct MCV MCH MCHC RDW Std Deviation RDW Coeff of Debra Plt Count MPV Sodium Potassium Chloride Carbon Dioxide Anion Gap BUN Creatinine Est Cr Clr Drug Dosing Est GFR ( Amer) Est GFR (Non-Af Amer) BUN/Creatinine Ratio Glucose POC Glucose 63 L* 90 96 Calcium Ionized Calcium Vit D 1,25-Dihyd Total 1,25 Dihydroxy Vit D2 1,25 Dihydroxy Vit D3 PTH Related Protein 12/15/19 12/15/19 12/15/19 17:22 19:38 20:41 WBC RBC Hgb Hct MCV MCH MCHC RDW Std Deviation RDW Coeff of Debra Plt Count MPV Sodium Potassium Chloride Carbon Dioxide Anion Gap BUN Creatinine Est Cr Clr Drug Dosing Est GFR ( Amer) Est GFR (Non-Af Amer) BUN/Creatinine Ratio Glucose POC Glucose 86 122 H 149 H Calcium Ionized Calcium Vit D 1,25-Dihyd Total 1,25 Dihydroxy Vit D2 1,25 Dihydroxy Vit D3 PTH Related Protein 12/15/19 23:56 WBC RBC Hgb Hct MCV MCH MCHC RDW Std Deviation RDW Coeff of Debra Plt Count MPV Sodium Potassium Chloride Carbon Dioxide Anion Gap BUN Creatinine Est Cr Clr Drug Dosing Est GFR ( Amer) Est GFR (Non-Af Amer) BUN/Creatinine Ratio Glucose POC Glucose 118 H Calcium Ionized Calcium Vit D 1,25-Dihyd Total 1,25 Dihydroxy Vit D2 1,25 Dihydroxy Vit D3 PTH Related Protein
[2019-12-16] MEDS: LEVOTHYROXINE SODIUM 50 MCG TABLET PO SCH (05:29)
[2019-12-16 06:19] LABS: Hematocrit (blood only) 33.7 % (42-52); Hemoglobin 10.5 g/dL (14.0-18.0); Mean Corpuscular Hgb Conc 31.2 g/dL (32-36); Mean Corpuscular Volume 93.1 fL (80-100); Nucleated RBC # (auto) 0.03 K/uL (0-0); Nucleated RBC % (auto) 0.7 %; RDW Coefficient of Variation 20.6 % (11.5-14.5); RDW Standard Deviation 69.6 fL (36.4-46.3); Red Blood Count 3.62 M/uL (4.7-6.1); White Blood Count 3.56 K/uL (4.8-10.8)
[2019-12-16 06:33] LABS: Estimated Average Glucose 157 mg/dl; Hemoglobin A1C 7.1 % (4.5-5.6)
[2019-12-16 06:45] LABS: Albumin Level 2.4 gm/dl (3.4-5.0); BUN Creatinine Ratio 11.7 (10-20); Calcium 10.7 mg/dl (8.5-10.1); Creatinine Clr Calc Pharmacy 44.6 ml/min; Est GFR (African American) 37.4; Est GFR (Non-African American) 32.3; Mean Platelet Volume 9.7 fL (7.4-10.4); Platelet Count 61 K/uL (130-400); Potassium 3.7 mmol/L (3.5-5.1)
[2019-12-16] MEDS: AMOXICILLIN/CLAVULANATE 875 MG TAB PO SCH ×2 (07:47→18:17)
[2019-12-16] MEDS: OXYBUTYNIN CHLORIDE XL 5 MG TABCR PO SCH (07:47)
[2019-12-16] MEDS: FENOFIBRATE NANOCRYSTALLIZED 145 MG TABLET PO SCH (07:47)
[2019-12-16] MEDS: CYANOCOBALAMIN 500 MCG TABLET (VITAMIN B-12) PO SCH (07:47)
[2019-12-16] MEDS: TOLTERODINE TARTRATE LA 4 MG CAPCR PO SCH (07:47)
[2019-12-16] MEDS: predniSONE 5 MG TAB PO SCH (07:47)
[2019-12-16] MEDS: AMLODIPINE BESYLATE 5 MG TAB PO SCH (07:47)
[2019-12-16] MEDS: DULOXETINE HCL 60 MG CAP PO SCH (07:48)
[2019-12-16] MEDS: DIVALPROEX DELAY RELEASE 500 MG TAB PO SCH ×2 (07:48→21:52)
[2019-12-16] MEDS: DIVALPROEX DELAY RELEASE 250 MG TABEC PO SCH ×2 (07:48→21:52)
[2019-12-16] MEDS: ASCORBIC ACID 500 MG TAB PO SCH (07:48)
[2019-12-16] MEDS: FUROSEMIDE 20 MG TAB PO SCH (07:48)
[2019-12-16] MEDS: NYSTATIN CR 15 GM TUBE EXT SCH ×2 (07:49→21:53)
[2019-12-16] MEDS: risperiDONE 1 MG TABLET PO SCH ×2 (07:49→21:52)
[2019-12-16] MEDS: IMIPRAMINE HCL 50 MG TAB PO SCH ×3 (08:05→21:52)
[2019-12-16] MEDS: INSULIN ASPART 100 UNITS/ML 3 ML PEN SC SCH ×4 (09:09→22:24)
--- NOTE | 2019-12-16 23:13 | Hospitalist Progress Note ---
Date of Service December 16, 2019 Assessment & Plan (1) Cellulitis: Presented with cellulitis of right lower extremity. Treated initially with clindamycin, then piperacillin / tazobactam. Transitioned to oral therapy with amoxicillin / clavulanic acid. (2) Acute metabolic encephalopathy: Confused at time of admission. No acute findings on CT of head. Probable metabolic encephalopathy / delirium. Possible etiologies: infection hypercalcemia meds (valproic acid level 123 at time of admission. Mental status improved. Follow. (3) Hypercalcemia: Uncorrected serum calcium as high as 10.16 November 2018 and as high as 11.May. Uncorrected serum calcium as high a/s 11.2 during this hospital stay on 12/12 - 12/14. Uncorrected serum calcium today = 10.7. Corrected sodium as high as 12.7. Ionized calcium as high as 1.53 on 12/12. 25-OH D = 30. 1,25 OH-D pending. PTH = 67. PTH-RP pending. Episodes of worsening hypercalcemia over past year while hospitalized correlate with worsening renal function. Reviewed outpt records. Hypercalcemia dates back to at least 2017. PTH then was slightly elevated. Parathyroid scan did not show any apparent adenoma. SPEP then was negative. Continue to hold calcium + D supplement. Maintain adequate volume status. Follow. Further evaluation / consultation as necessary. (4) Chronic diastolic heart failure: Chronic left ventricular diastolic heart failure. Admission chest x-ray demonstrated pulmonary vascular congestion, but BNP normal. Appearance of vascular congestion may have been partly due to poor inspiratory effort. Continue diuretic therapy as renal function allows. (5) Hypertension: Hemodynamically stable. Continue amlodipine. (6) JHOANA (obstructive sleep apnea): Intolerant of CPAP / BiPAP. (7) Chronic kidney disease (CKD), stage III (moderate): Creatinine today = 2.20. Hold furosemide today. Follow. 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 Linagliptin held. NovoLog ordered PRN. Hypoglycemic mornings of 12/13 and 12/14. Hgb A1c = 7.1. FBS today = 101. Follow and titrate therapy. (9) Hypothyroidism: TSH 7.21 on 12/09; elevation may have been secondary to acute illness. TSH 0.789 on 12/13. Continue levothyroxine. (10) Morbid obesity: Wt 114, BMI 40. Heart healthy / diabetic diet. (11) Vasculitis: Continue prednisone. (12) Pancytopenia: Chronic. ? underlying etiology (consider valproic acid). Checked old records. Intermittent thrombocytopenia over past few years. Pancytopenia since May 2019. Consider Hematology consult as outpatient. (13) Schizoaffective disorder, bipolar type: Continue usual meds. (14) DVT prophylaxis: No anticoagulants due to thrombocytopenia. SCD's. Ambulate. (15) Discharge planning issues: Anticipated need for skilled care. Family Medicine follow-up with Dr. Watters. Nephrology follow-up with [facility]. Rheumatology follow-up with Dr. Dugan. Outpatient Hematology consult re: pancytopenia. Sister Iris given update by phone. Admission and Anticipated Discharge Date Admission Date: December 10, 2019 Subjective Recheck for multiple problems. Patient seen in their room around 1150. No fever. Right leg feels better. No further hypoglycemia. Review of Systems: Constitutional- no fever. Cardiac- no chest pain. Pulmonary- no cough or SOB. GI- no nausea, vomiting, diarrhea, melena, hematochezia. - no urinary symptoms. Otherwise, as noted above. Physical Exam Constitutional: no acute distress Respiratory: no respiratory distress Auscultation: lungs clear to auscultation bilaterally Cardiovascular: Rate/Rhythm: regular rate and regular rhythm Heart Sounds: no gallop Vessels: no JVD Extremities: + edema (1+ pretibial); no calf tenderness Gastrointestinal (Abdomen): normal bowel sounds, soft, nontender, no hepatosplenomegaly Musculoskeletal: Extremities: no cyanosis Skin: + rash (chronic venous stasis changes bilat, mild erythema right leg) Psychiatric: Orientation: alert Results & Data Results & Data ([facility]) Laboratory Results 12/16/19 05:59 12/16/19 05:59
[2019-12-17] MEDS: LEVOTHYROXINE SODIUM 50 MCG TABLET PO SCH (05:32)
[2019-12-17 06:03] LABS: Calcium 10.1 mg/dl (8.5-10.1); Creatinine Clr Calc Pharmacy 44.2 ml/min; Est GFR (Non-African American) 31.9; Potassium 3.8 mmol/L (3.5-5.1)
[2019-12-17] MEDS: FENOFIBRATE NANOCRYSTALLIZED 145 MG TABLET PO SCH (08:09)
[2019-12-17] MEDS: DIVALPROEX DELAY RELEASE 250 MG TABEC PO SCH ×2 (08:09→20:55)
[2019-12-17] MEDS: AMOXICILLIN/CLAVULANATE 875 MG TAB PO SCH ×2 (08:09→17:35)
[2019-12-17] MEDS: DIVALPROEX DELAY RELEASE 500 MG TAB PO SCH ×2 (08:09→20:55)
[2019-12-17] MEDS: AMLODIPINE BESYLATE 5 MG TAB PO SCH (08:09)
[2019-12-17] MEDS: DULOXETINE HCL 60 MG CAP PO SCH (08:09)
[2019-12-17] MEDS: IMIPRAMINE HCL 50 MG TAB PO SCH ×3 (08:09→20:54)
[2019-12-17] MEDS: ASCORBIC ACID 500 MG TAB PO SCH (08:09)
[2019-12-17] MEDS: TOLTERODINE TARTRATE LA 4 MG CAPCR PO SCH (08:09)
[2019-12-17] MEDS: risperiDONE 1 MG TABLET PO SCH ×2 (08:09→20:54)
[2019-12-17] MEDS: predniSONE 5 MG TAB PO SCH (08:09)
[2019-12-17] MEDS: CYANOCOBALAMIN 500 MCG TABLET (VITAMIN B-12) PO SCH (08:09)
[2019-12-17] MEDS: OXYBUTYNIN CHLORIDE XL 5 MG TABCR PO SCH (08:09)
[2019-12-17] MEDS: NYSTATIN CR 15 GM TUBE EXT SCH ×2 (08:10→20:55)
[2019-12-17] MEDS: INSULIN ASPART 100 UNITS/ML 3 ML PEN SC SCH ×4 (09:39→21:14)
--- NOTE | 2019-12-17 23:33 | Hospitalist Progress Note ---
Date of Service December 17, 2019 Assessment & Plan (1) Cellulitis: Presented with cellulitis of right lower extremity. Treated initially with clindamycin, then piperacillin / tazobactam. Transitioned to oral therapy with amoxicillin / clavulanic acid. (2) Acute metabolic encephalopathy: Confused at time of admission. No acute findings on CT of head. Probable metabolic encephalopathy / delirium. Possible etiologies: infection hypercalcemia meds (valproic acid level 123 at time of admission. Mental status improved. Follow. (3) Hypercalcemia: Uncorrected serum calcium as high as 10.16 November 2018 and as high as 11.May. Uncorrected serum calcium as high a/s 11.2 during this hospital stay on 12/12 - 12/14. Uncorrected serum calcium today = 10.1. Corrected calcium as high as 12.7. Ionized calcium as high as 1.53 on 12/12. 25-OH D = 30. 1,25 OH-D pending. PTH = 67. PTH-RP pending. Episodes of worsening hypercalcemia over past year while hospitalized correlate with worsening renal function. Reviewed outpt records. Hypercalcemia dates back to at least 2017. PTH then was slightly elevated. Parathyroid scan did not show any apparent adenoma. SPEP then was negative. Continue to hold calcium + D supplement. Maintain adequate volume status. Follow. Further evaluation / consultation as necessary. (4) Chronic diastolic heart failure: Chronic left ventricular diastolic heart failure. Admission chest x-ray demonstrated pulmonary vascular congestion, but BNP normal. Appearance of vascular congestion may have been partly due to poor inspiratory effort. Continue diuretic therapy as renal function allows. (5) Hypertension: Hemodynamically stable. Continue amlodipine. (6) JHOANA (obstructive sleep apnea): Intolerant of CPAP / BiPAP. (7) Chronic kidney disease (CKD), stage III (moderate): Creatinine today = 2.23. Conitnue to hold furosemide today. Follow. 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 Linagliptin held. NovoLog ordered PRN. Hypoglycemic mornings of 12/13 and 12/14. Hgb A1c = 7.1. FBS today = 99. Follow and titrate therapy. (9) Hypothyroidism: TSH 7.21 on 12/09; elevation may have been secondary to acute illness. TSH 0.789 on 12/13. Continue levothyroxine. (10) Morbid obesity: Wt 114, BMI 40. Heart healthy / diabetic diet. (11) Vasculitis: Continue prednisone. (12) Pancytopenia: Chronic. ? underlying etiology (consider valproic acid). Checked old records. Intermittent thrombocytopenia over past few years. Pancytopenia since May 2019. Consider Hematology consult as outpatient. (13) Schizoaffective disorder, bipolar type: Continue usual meds. (14) DVT prophylaxis: No anticoagulants due to thrombocytopenia. SCD's. Ambulate. (15) Discharge planning issues: Anticipated need for skilled care. Family Medicine follow-up with Dr. Watters. Nephrology follow-up with [facility]. Rheumatology follow-up with Dr. Dugan. Outpatient Hematology consult re: pancytopenia. Admission and Anticipated Discharge Date Admission Date: December 10, 2019 Subjective Recheck for multiple problems. Patient seen in their room around 1520. Out of bed in chair. No fever. Right leg feels better. Review of Systems: Constitutional- no fever. Cardiac- no chest pain. Pulmonary- no cough or SOB. GI- no nausea, vomiting, diarrhea, melena, hematochezia. - no urinary symptoms. Otherwise, as noted above. Physical Exam Constitutional: no acute distress Respiratory: no respiratory distress Auscultation: lungs clear to auscultation bilaterally Cardiovascular: Rate/Rhythm: regular rate and regular rhythm Heart Sounds: no gallop Vessels: no JVD Extremities: + edema (1-2+ pretibial); no calf tenderness Gastrointestinal (Abdomen): normal bowel sounds, soft, nontender, no hepatosplenomegaly Musculoskeletal: Extremities: no cyanosis Skin: no rashes, warm and dry + rash (chronic venous stasis changes bilat, mild erythema right leg) Psychiatric: Orientation: alert Results & Data Results & Data ([facility]) Vital Signs (Past 12 Hours) Vital Signs Temp Pulse Resp BP Pulse Ox 12/17/19 15:09 36.5 C 73 16 107/72 98 Laboratory Results Laboratory Results - last 24 hr 12/17/19 12/17/19 12/17/19 05:21 05:21 07:59 Sodium 142 Potassium 3.8 Chloride 100 Carbon Dioxide 39 H Anion Gap 3.0 BUN 29 H Creatinine 2.22 H Est Cr Clr Drug Dosing 44.2 Est GFR ( Amer) 37.0 Est GFR (Non-Af Amer) 31.9 BUN/Creatinine Ratio 13.0 Glucose 94 POC Glucose 99 Calcium 10.1 Valproic Acid 100 12/17/19 12/17/19 12/17/19 12:12 17:00 20:40 Sodium Potassium Chloride Carbon Dioxide Anion Gap BUN Creatinine Est Cr Clr Drug Dosing Est GFR ( Amer) Est GFR (Non-Af Amer) BUN/Creatinine Ratio Glucose POC Glucose 139 H 113 H 146 H Calcium Valproic Acid
[2019-12-18] MEDS: LEVOTHYROXINE SODIUM 50 MCG TABLET PO SCH (04:57)
[2019-12-18 06:02] LABS: Hematocrit (blood only) 33.8 % (42-52); Hemoglobin 10.8 g/dL (14.0-18.0); Mean Corpuscular Hemoglobin 29.3 pg (25-34); Mean Corpuscular Volume 91.8 fL (80-100); RDW Standard Deviation 69.9 fL (36.4-46.3); Red Blood Count 3.68 M/uL (4.7-6.1); White Blood Count 4.64 K/uL (4.8-10.8)
[2019-12-18 06:04] LABS: Platelet Count 55 K/uL (130-400)
[2019-12-18 06:35] LABS: Albumin Level 2.4 gm/dl (3.4-5.0); BUN Creatinine Ratio 12.9 (10-20); Calcium 10.4 mg/dl (8.5-10.1); Creatinine Clr Calc Pharmacy 46.5 ml/min; Est GFR (African American) 39.4; Potassium 3.5 mmol/L (3.5-5.1)
[2019-12-18 06:37] LABS: C Reactive Protein 1.49 mg/dl (0-0.29)
[2019-12-18] MEDS: INSULIN ASPART 100 UNITS/ML 3 ML PEN SC SCH ×2 (09:18→13:14)
[2019-12-18] MEDS: IMIPRAMINE HCL 50 MG TAB PO SCH ×2 (09:20→13:16)
[2019-12-18] MEDS: FENOFIBRATE NANOCRYSTALLIZED 145 MG TABLET PO SCH (09:20)
[2019-12-18] MEDS: risperiDONE 1 MG TABLET PO SCH (09:20)
[2019-12-18] MEDS: DIVALPROEX DELAY RELEASE 250 MG TABEC PO SCH (09:20)
[2019-12-18] MEDS: DIVALPROEX DELAY RELEASE 500 MG TAB PO SCH (09:20)
[2019-12-18] MEDS: DULOXETINE HCL 60 MG CAP PO SCH (09:21)
[2019-12-18] MEDS: OXYBUTYNIN CHLORIDE XL 5 MG TABCR PO SCH (09:21)
[2019-12-18] MEDS: AMLODIPINE BESYLATE 5 MG TAB PO SCH (09:21)
[2019-12-18] MEDS: TOLTERODINE TARTRATE LA 4 MG CAPCR PO SCH (09:21)
[2019-12-18] MEDS: CYANOCOBALAMIN 500 MCG TABLET (VITAMIN B-12) PO SCH (09:21)
[2019-12-18] MEDS: predniSONE 5 MG TAB PO SCH (09:21)
[2019-12-18] MEDS: ASCORBIC ACID 500 MG TAB PO SCH (09:21)
[2019-12-18] MEDS: NYSTATIN CR 15 GM TUBE EXT SCH (09:21)
[2019-12-18] MEDS: AMOXICILLIN/CLAVULANATE 875 MG TAB PO SCH (09:21)
--- NOTE | 2019-12-18 12:52 | Hospitalist Progress Note ---
Date of Service December 18, 2019 Assessment & Plan (1) Cellulitis: Presented with cellulitis of right lower extremity. Treated initially with clindamycin, then piperacillin / tazobactam. Transitioned to oral therapy with amoxicillin / clavulanic acid. Discharge on amoxicillin / clavulanic acid x 6 more days to complete 14 day course of therapy. (2) Acute metabolic encephalopathy: Confused at time of admission. No acute findings on CT of head. Probable metabolic encephalopathy / delirium. Possible etiologies: infection hypercalcemia meds (valproic acid level 123 at time of admission. Mental status improved. Follow. (3) Chronic diastolic heart failure: Chronic left ventricular diastolic heart failure. May have some degree of right sided heart failure as well from sleep apnea. Admission chest x-ray demonstrated pulmonary vascular congestion, but BNP normal. Appearance of vascular congestion may have been partly due to poor inspiratory effort. Held furosemide because of elevated creatinine and hypercalcemia. May have to accept some degree of dependent edema. Discharge on furosemide 20 mg 3 x a week on MWF + PRN. (4) Hypertension: Hemodynamically stable. Continue amlodipine. (5) JHOANA (obstructive sleep apnea): History of sleep apnea; may also have obesity hypoventilation syndrome. Intolerant of CPAP / BiPAP. Noted to be hypoxic in 80's when sleeping. Discharge on nocturnal O2. (6) Chronic kidney disease (CKD), stage III (moderate): CKD III with baseline creatinine Creatinine 1.98 day of admission and david as high as 2.22. Furosemide held. Creatinine today = 2.11. Discharge on reduced dose of furosemide. Follow labs. Outpatient follow-up with Nephrology. (7) Hypercalcemia: Uncorrected serum calcium as high as 10.16 November 2018 and as high as 11.May. Uncorrected serum calcium as high as 11.2 during this hospital stay on 12/12 - 12/14. Uncorrected serum calcium today = 10.4. Corrected calcium as high as 12.7. Corrected calcium today = 11.7. Ionized calcium as high as 1.53 on 12/12. Ionized calcium today = 1.34. 25-OH D = 30. 1,25 OH-D pending. PTH = 67. PTH-RP pending. Episodes of worsening hypercalcemia over past year while hospitalized correlate with worsening renal function. Reviewed outpt records. Hypercalcemia dates back to at least 2018. PTH then was slightly elevated. Parathyroid scan did not show any apparent adenoma. SPEP then was negative. Discontinue calcium + D supplement. Maintain adequate volume status. Follow. Further evaluation / consultation as necessary. 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 Linagliptin held. NovoLog ordered PRN. Hypoglycemic mornings of 12/13 and 12/14. Hgb A1c = 7.1. FBS today = 109. Discharge on usual regimen. Follow and titrate therapy. (9) Hypothyroidism: TSH 7.21 on 12/09; elevation may have been secondary to acute illness. TSH 0.789 on 12/13. Continue levothyroxine. Recheck LFT's periodically as outpatient. (10) Morbid obesity: Wt 114, BMI 40. Heart healthy / diabetic diet. (11) Vasculitis: Continue prednisone. (12) Pancytopenia: Chronic. ? underlying etiology (consider valproic acid). Checked old records. Intermittent thrombocytopenia over past few years. Pancytopenia since May 2019. Consider Hematology consult as outpatient. (13) Schizoaffective disorder, bipolar type: Outpatient regimen: divalproex 1000 mg BID duloxetine 60 mg daily imipramine 50 mg TID risperidone 2 mg BID Valproic acid level 123 at time of admission. Meds were adjusted with guidance of his sister. Divalproex dose decreased to 750 BID; valproic acid level 94 on 12/12 and 100 on 12/16. Continue divalproex 750 BID; recheck level in 1 week and titrate therapy as needed. (14) DVT prophylaxis: No anticoagulants due to thrombocytopenia. SCD's. Ambulate. (15) Discharge planning issues: Needs skilled care. Family Medicine follow-up with Dr. Wattesr. [facility]: CKD and hypercalcemia Rheumatology follow-up with Dr. Dugan. Outpatient Hematology consult re: pancytopenia. Sister Iris contacted by phone and given update. Admission and Anticipated Discharge Date Admission Date: December 10, 2019 Subjective Recheck for multiple problems. Patient seen in their room around 0830. Doing well. No fever. Right leg feels better. Review of Systems: Constitutional- no fever. Cardiac- no chest pain. Pulmonary- no cough or SOB. GI- no nausea, vomiting, diarrhea, melena, hematochezia. - no urinary symptoms. Otherwise, as noted above. Physical Exam Constitutional: no acute distress Respiratory: no respiratory distress Auscultation: lungs clear to auscultation bilaterally Cardiovascular: Rate/Rhythm: regular rate and regular rhythm Heart Sounds: no gallop Vessels: no JVD Extremities: + edema (1-2+ pretibial); no calf tenderness Gastrointestinal (Abdomen): normal bowel sounds, soft, nontender, no hepatosplenomegaly Musculoskeletal: Extremities: + extremities abnormal to inspection (shortening of RLE) and no cyanosis Skin: no rashes, warm and dry + rash (chronic venous stasis changes bilat, resolving erythema right leg) Psychiatric: Orientation: alert Results & Data Results & Data ([facility]) Vital Signs (Past 12 Hours) Vital Signs Temp Pulse Resp BP Pulse Ox 12/18/19 07:41 36.7 C 65 14 158/90 H 100 Laboratory Results Laboratory Results - last 24 hr 12/17/19 12/17/19 12/18/19 17:00 20:40 05:26 WBC 4.64 L RBC 3.68 L Hgb 10.8 L Hct 33.8 L MCV 91.8 MCH 29.3 MCHC 32.0 RDW Std Deviation 69.9 H RDW Coeff of Debra 21.0 H Plt Count 55 L MPV 9.0 Sodium Potassium Chloride Carbon Dioxide Anion Gap BUN Creatinine Est Cr Clr Drug Dosing Est GFR ( Amer) Est GFR (Non-Af Amer) BUN/Creatinine Ratio Glucose POC Glucose 113 H 146 H Calcium Ionized Calcium C-Reactive Protein Albumin 12/18/19 12/18/19 12/18/19 05:26 05:26 08:32 WBC RBC Hgb Hct MCV MCH MCHC RDW Std Deviation RDW Coeff of Debra Plt Count MPV Sodium 140 Potassium 3.5 Chloride 99 Carbon Dioxide 37 H Anion Gap 4.0 BUN 27 H Creatinine 2.11 H Est Cr Clr Drug Dosing 46.5 Est GFR ( Amer) 39.4 Est GFR (Non-Af Amer) 34.0 BUN/Creatinine Ratio 12.9 Glucose 109 H POC Glucose 100 H Calcium 10.4 H Ionized Calcium 1.34 H C-Reactive Protein 1.49 H Albumin 2.4 L 12/18/19 12:18 WBC RBC Hgb Hct MCV MCH MCHC RDW Std Deviation RDW Coeff of Debra Plt Count MPV Sodium Potassium Chloride Carbon Dioxide Anion Gap BUN Creatinine Est Cr Clr Drug Dosing Est GFR ( Amer) Est GFR (Non-Af Amer) BUN/Creatinine Ratio Glucose POC Glucose 114 H Calcium Ionized Calcium C-Reactive Protein Albumin
--- NOTE | 2019-12-18 13:10 | Discharge Summary ---
Date of Service Date of Admission: 12/10/19 Date of Discharge: 12/18/19 Admission HPI Per Admitting Provider Pt is 54 y/o M with PMH vasculitis on prednisone, HTN, HLD, CKD III, schizoaffective disorder, chronic anemia, chronic thrombocytopenia, history of posttraumatic seizure disorder, hypothyroidism, DM II presented to ER for leg redness and difficulty standing. History assisted from patient's sister as patient was noted altered mental status. Patient sister reports patient had history of altered mental status back in 05/2019 when his medications including his valproic acid was abnormal. She reports upon discharge from hospital patient went to [facility] for rehab and was there for 4 months and has since been home for the past 6 weeks. Patient states well at rehab is doing very well and was able to assist in transfers using a walker and his mental status was clear. She states since being home patient mostly sits in wheelchair and usually can assist in transfers using a walker. Today patient was unable to stand to use walker. She reports patient lives home alone and she comes to the house from 9 AM to 8 PM daily. She does all of his medication and gives him his medications. She reports has chronic bilateral leg edema however couple weeks ago noticed increased redness to legs and was seen by PCP and started on Augmentin on 12/03/2019. She reports edema has persisted however redness seem to be improving. Denies any known fevers or chills, nausea or vomiting. States patient has been eating and drinking well. Today she did notice some clear weeping from right leg. Denies any known fall since patient has been home. She states patient had clear mental status yesterday and had a counseling session. Today she noticed patient seemed to be mumbling more and more tired. Pt does have rash to groin skin folds and are using nystatin to area. She reports pt often with urinary incontinence. No noted hematuria, foul smelling urine. Pt denies N/V/D/C, ABBOTT, dizziness, CP, SOB, abdominal pain. Further ROS unable to be obtained secondary to pt's current mental status. Principal Diagnosis cellulitis right lower extremity altered mental status (metabolic encephalopathy, delirium) hypercalcemia Discharge Data Allergies Allergy/AdvReac Type Severity Reaction Status Date / Time furosemide Allergy Intermediate Oral Verified 12/10/19 18:15 solution - rash neomycin Allergy Intermediate Rash Verified 12/10/19 18:15 polymyxin B Allergy Intermediate Rash Verified 12/10/19 18:15 Sulfa (Sulfonamide Allergy Intermediate Bactrim - Verified 12/10/19 18:15 Antibiotics) rash. sulfamethoxazole Allergy Intermediate Rash Verified 06/02/19 14:54 [From Bactrim] trimethoprim [From Bactrim] Allergy Intermediate Rash Verified 06/02/19 14:54 aspirin Allergy Unknown Nothing Verified 12/10/19 18:15 with Aspirin. bacitracin Allergy Unknown Rash Verified 12/10/19 18:15 Cephalosporins Allergy Unknown Unknown Verified 12/10/19 18:15 doxycycline Allergy Unknown ON LIST Verified 12/10/19 18:15 moxifloxacin Allergy Unknown Unverified 12/10/19 18:15 Consultations 12/10/19 16:43 ED Decision to Admit Stat 12/10/19 18:24 Consult Case Management - Discharge Planning Routine 12/11/19 21:53 Consult Neurology Routine Consult Psychiatry Routine Ordered Studies 12/10/19 14:41 CT head/brain wo con Stat 12/10/19 15:39 US venous doppler [facility] Hospital Course (1) Cellulitis: Presented with cellulitis of right lower extremity. Treated initially with clindamycin, then piperacillin / tazobactam. Transitioned to oral therapy with amoxicillin / clavulanic acid. Discharge on amoxicillin / clavulanic acid x 6 more days to complete 14 day course of therapy. (2) Acute metabolic encephalopathy: Confused at time of admission. No acute findings on CT of head. Probable metabolic encephalopathy / delirium. Possible etiologies: infection hypercalcemia meds (valproic acid level 123 at time of admission. Mental status improved. Follow. (3) Chronic diastolic heart failure: Chronic left ventricular diastolic heart failure. May have some degree of right sided heart failure as well from sleep apnea. Admission chest x-ray demonstrated pulmonary vascular congestion, but BNP normal. Appearance of vascular congestion may have been partly due to poor inspiratory effort. Held furosemide because of elevated creatinine and hypercalcemia. May have to accept some degree of dependent edema. Discharge on furosemide 20 mg 3 x a week on MWF + PRN. (4) Hypertension: Hemodynamically stable. Continue amlodipine. (5) JHOANA (obstructive sleep apnea): History of sleep apnea; may also have obesity hypoventilation syndrome. Intolerant of CPAP / BiPAP. Noted to be hypoxic in 80's when sleeping. Discharge on nocturnal O2. (6) Chronic kidney disease (CKD), stage III (moderate): CKD III with baseline creatinine Creatinine 1.98 day of admission and david as high as 2.22. Furosemide held. Creatinine day of discharge 2.11. Discharge on reduced dose of furosemide. Follow labs. Outpatient follow-up with Nephrology. (7) Hypercalcemia: Uncorrected serum calcium as high as 10.16 November 2018 and as high as 11.May. Uncorrected serum calcium as high as 11.2 during this hospital stay on 12/12 - 12/14. Uncorrected serum calcium day of discharge 10.4. Corrected calcium as high as 12.7. Corrected calcium day of discharge 11.7. Ionized calcium as high as 1.53 on 12/12. Ionized calcium day of discharge 1.34. 25-OH D = 30. 1,25 OH-D pending. PTH = 67. PTH-RP pending. Episodes of worsening hypercalcemia over past year while hospitalized correlate with worsening renal function. Reviewed outpt records. Hypercalcemia dates back to at least 2017. PTH then was slightly elevated. Parathyroid scan did not show any apparent adenoma. SPEP then was negative. Discontinue calcium + D supplement. Maintain adequate volume status. Follow. Further evaluation / consultation as necessary. 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 Linagliptin held. NovoLog ordered PRN. Hypoglycemic mornings of 12/13 and 12/14. Hgb A1c = 7.1. FBS day of discharge 109. Discharge on usual regimen. Follow and titrate therapy. (9) Hypothyroidism: TSH 7.21 on 12/09; elevation may have been secondary to acute illness. TSH 0.789 on 12/13. Continue levothyroxine. Recheck LFT's periodically as outpatient. (10) Morbid obesity: Wt 114, BMI 40. Heart healthy / diabetic diet. (11) Vasculitis: Continue prednisone. (12) Pancytopenia: 12/10/19 12/18/19 15:04 05:26 WBC 3.88 L 4.64 L Hgb 9.1 L 10.8 L Plt Count 72 L 55 L ? underlying etiology (consider valproic acid). Checked old records. Intermittent thrombocytopenia over past few years. Pancytopenia since May 2019. Recommend Hematology consult as outpatient. (13) Schizoaffective disorder, bipolar type: Outpatient regimen: divalproex 1000 mg BID duloxetine 60 mg daily imipramine 50 mg TID risperidone 2 mg BID Valproic acid level 123 at time of admission. Meds were adjusted with guidance of his sister. Divalproex dose decreased to 750 BID; valproic acid level 94 on 12/12 and 100 on 12/16. Continue divalproex 750 BID; recheck level in 1 week and titrate therapy as needed. (14) DVT prophylaxis: No anticoagulants due to thrombocytopenia. SCD's. Ambulate. (15) Discharge planning issues: Needs skilled care due to poor functional status and inability to perform ADL's independently. Family Medicine follow-up with Dr. Watters. Nephrology follow-up with [facility] re: CKD and hypercalcemia Rheumatology follow-up with Dr. Dugan. Outpatient Hematology consult re: pancytopenia. Sister Iris contacted by phone and given update. Total Time Total Time Spent Total Time Spent (In Minutes): 50 Discharge Plan Discharge Items Patient Disposition: Transfer [facility] Reason For Visit: confusion Discharge Diagnosis: cellulitis right lower extremity confusion Activity: As commented below Activity Comment: As tolerated with assistance and walker. Non-emergency contact: Primary Care Provider and Hospitalist Call non-emergency contact if: you have any medication questions Follow-up/Referrals: Don Watters MD [Primary Care Provider] - Diet: Carb Consistent or DM2 and Heart Healthy Addtl Attending Provider Instructions: Fall precautions. Ambulate with walker and assistance wearing shoes. O2 2 LPM while sleeping and as needed. Please check basic metabolic profile and valproic acid level weekly until stable, then as clinically indicated. Fingerstick blood sugars before meals and at bedtime. Thank you for receiving this patient in transfer. Please call if you have any questions. Daniel Crawford Pending Studies at Discharge: Yes Studies:: PTHrp 1,25-OH vitamin D Stand-Alone Forms: My [facility] Skilled Items Patient informed of condition?: Yes DNR: No Discharge Level of Care: Skilled Communicable Disease: No Discharge Prognosis: Improving Lines: None Urinary Catheter: No Medications and DC Order Prescriptions: New divalproex 250 mg tablet,delayed release (DR/EC) 750 mg PO BID 30 Days Qty: 180 RF: 0 furosemide 20 mg tablet See Rx Instructions .ROUTE .COMPLEX Qty: 30 RF: 0 amoxicillin-pot clavulanate 875-125 mg tablet 1 tab PO BIDM Qty: 12 RF: 0 Continued duloxetine [Cymbalta] 60 mg Capsule,Delayed Release(Dr/Ec) 60 mg PO DAILY RF: 0 oxybutynin chloride 10 mg Tablet Extended Release 24hr 10 mg PO DAILY RF: 0 prednisone 5 mg Tablet 5 mg PO DAILY RF: 0 cyanocobalamin (vitamin B-12) [Vitamin B-12] 1,000 mcg Tablet 1,000 mcg PO DAILY RF: 0 vitamin E 400 unit Capsule 400 unit PO DAILY RF: 0 tolterodine 4 mg capsule,extended release 24hr 4 mg PO DAILY RF: 0 imipramine HCl 50 mg tablet 50 mg PO TID RF: 0 ascorbic acid (vitamin C) [Vitamin C] 1,000 mg Tablet 1 g PO DAILY RF: 0 amlodipine [Norvasc] 5 mg tablet 5 mg PO DAILY RF: 0 triamcinolone acetonide 0.1 % cream 1 applic TOPICAL BID RF: 0 risperidone 2 mg tablet 2 mg PO BID RF: 0 levothyroxine 50 mcg tablet 50 mcg PO DAILY RF: 0 nystatin 100,000 unit/gram cream 1 applic TOPICAL BID RF: 0 fenofibrate nanocrystallized 145 mg tablet 145 mg PO DAILY RF: 0 omega 1-vei-wsn-fish oil [Fish Oil] 1,000 mg (120 mg-180 mg) Capsule 1 cap PO BID RF: 0 Tradjenta 5 mg tablet 5 mg PO DAILY RF: 0 Discontinued calcium carbonate-vitamin D3 [Calcium 600 + D(3)] 600 mg(1,500mg) -400 unit Tablet 1 tab PO BID RF: 0 amoxicillin 500 mg Capsule 2,000 mg PO UD RF: 0 furosemide [Lasix] 20 mg tablet 20 mg PO DAILY RF: 0 amoxicillin-pot clavulanate 875-125 mg tablet 1 tab PO Q12 RF: 0 divalproex 500 mg tablet,delayed release (DR/EC) 1,000 mg PO BID RF: 0 Discharge Orders: Discharge Order (Routine); Ordered 12/18/19 Ordered By: Daniel Ortiz/Other Patient Handouts: High Blood Sugar (Hyperglycemia), Hypoglycemia (Low Blood Sugar), Managing Type 2 Diabetes, Managing Diabetes: The A1C Test, Diabetes: Meal Planning Admission Data Admit Date/Time: 12/10/19 17:22 Attending Provider: Daniel Crawford Admit Provider: Shaheed Irizarry Primary Care Provider: Don Watters Other Providers: Shaheed Irizarry ; Daniel Horvath Melissa C. ; Ynes Rivera
[2019-12-18 17:24] LABS: PTH Related Protein 15 pg/mL (14-27); Vitamin D 1,25 11 pg/mL (18-72); Vitamin D3,1,25 11 pg/mL
== END 2019-12-18 14:50 | DRG 602 ==
LOC: ED 14:26 → 2E 17:22 → SUATTDRO 17:22 → 2E 17:55 → 3W 12-12 16:35

== ENCOUNTER 2022-02-15 15:02 | Inpatient (IN) ==
[2022-02-15] MEDS ORDERED: SODIUM CHLORIDE 0.9% 1000ML 1,000 ML IV STA (15:20)
--- NOTE | 2022-02-15 15:20 | Emergency Department Note ---
Impression & Plan Symptomatic anemia ED Provider Note INFORMANT: Patient ED PROVIDER(S): Daniel Zhao MD CHIEF COMPLAINT: Anemia PLAN: Disposition: Admitted Condition: Good Outpatient prescription management: none Referral: None MEDICAL DECISION MAKING: Patient presented due to concerns about possible anemia. He was pale but hemodynamically stable. Work-up was initiated. ECG showed a normal sinus rhythm. Left axis deviation. The patient's CBC revealed a leukopenia as well as significant anemia. He is not quite at the transfusion threshold however further management will be necessary. Patient did not have any pain. He remained stable during his time in the emergency department. [facility] Patient was evaluated in the ER for further management. Triage Nursing notes reviewed and agree them. Vital Signs: reviewed and remarkable for no significant abnormalities Differential diagnosis: Symptomatic anemia, infection, dehydration, metabolic abnormality, hypo/hyperglycemia, electrolyte disturbance, GI bleed, marrow failure, hypoxia, cardiac sources, intracerebral event, toxicologic, neurologic, as well as other pathologies. Diagnostics interpreted by me: ECG: Twelve-lead ECG reveals a normal sinus rhythm at 60 bpm. Left axis deviation. Recommend block. Left ventricular hypertrophy present. Septal Q waves. Cardiac Monitoring: Cardiac monitoring ordered by me: The patient was placed on continuous cardiac monitoring and observed. It revealed a normal sinus rhythm at 60 beats per minute without ectopy or evidence of dysrhythmia. Imaging studies: Chest x-ray. Findings: A chest x-ray was performed and revealed no pneumothorax, effusion, infiltrate, pulmonary edema, free air under the diaphragm, or wide mediastinum. Impression: No acute disease. HPI: The patient is a 56year old male who presents to the Emergency Room with complaints of anemia. This started due to recent blood work that was done this week and is reported as a hemoglobin of 7.5. The patient also notes the following associated symptoms, fatigue and feeling somewhat lightheaded. The patient has been prescribed no medication for relieving factors. Current pain is rated as 0/10. Patient states he has a history of anemia and was transfused many years ago, around 12. Pt denies LOC, headache, fevers, chills, diaphoresis, visual changes, neck pain, chest pain, breathing difficulties, nausea, vomiting, abdominal pain, back pain, melena, hematochezia, urinary symptoms, numbness, lymphadenopathy, rash, or other complaints. ROS: See above HPI for pertinent positives & negatives. A total of 10 systems reviewed and were otherwise negative. PAST MEDICAL HISTORY:See Below , pancytopenia, diabetes, schizoaffective disorder PAST SURGICAL HISTORY:See Below, replacement FAMILY HISTORY:See Below SOCIAL HISTORY:See Below, resides at [facility] MEDICATIONS:See Below ALLERGIES:See Below VITALS:See Below PHYSICAL EXAMINATION: GENERAL: Awake, tired-appearing, in no distress HENT: Normocephalic, atraumatic. Oropharynx unremarkable. EYES: Pale conjunctiva. Sclera non-icteric. NECK: Inspection normal. Non-tender. Supple. No nuchal rigidity. FROM. No masses. RESPIRATORY: Clear to auscultation. No wheezes. No rales. Normal respiratory effort. CARDIAC: Normal rate. Normal rhythm. No murmurs. No rubs. Extremities warm and well perfused. Pulses equal. No JVD. GI: Soft, non-distended. No tenderness to palpation. No rebound or guarding. No masses. RECTAL: Deferred. MUSCULOSKELETAL: Atraumatic. Chest examination reveals no tenderness. The back is symmetrical on inspection without obvious abnormality. There is no CVA tenderness to palpation. No joint edema. LOWER EXTREMITIES: Calves are equal size bilaterally and non-tender. 1+ edema. No discoloration. NEURO: Normal sensorium. No sensory or motor deficits noted. SKIN: There is ecchymotic discoloration to the left chest and rib area in the area of the nipple and mid axillary line. Patient denies any fall or pain. No associated tenderness. No rash or jaundice noted. 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 Bipolar disorder Chronic pain CKD (chronic kidney disease), stage III Diabetes mellitus type 2 with complications Diabetes mellitus, type II Diastolic dysfunction GERD (gastroesophageal reflux disease) Goiter Hyperlipidemia Hyperprolactinemia Hypertension Hypertension Hypothyroidism ALKA (iron deficiency anemia) JHOANA (obstructive sleep apnea) does not use cpap or bipap Pancreatitis Post-traumatic seizures RBBB Reflux esophagitis Schizoaffective disorder, bipolar type Thrombocytopenia Vasculitis Surgical History History of fasciotomy History of total right hip arthroplasty History of tracheostomy Family History Other Family history unobtainable Social History Smoking Status: Never smoker Tobacco Type: Smokeless Tobacco (Dip or Chew) Second Hand Exposure: No; Hx Alcohol Use: No Hx Substance Use: No Preferred Language: Portuguese Communication Ability: Effective Pattern Painter Required: No marital status: Single Current Living Situation: Family Current Living Situation Comment: Lives in sister's shed Feels Safe at Home: Declines to Answer Assistive Devices: Wheelchair Allergies Allergies Allergy/AdvReac Type Severity Reaction Status Date / Time bacitracin Allergy Intermediate Rash Verified 02/15/22 17:38 furosemide Allergy Intermediate Oral Verified 02/15/22 17:38 solution - rash neomycin Allergy Intermediate Rash Verified 02/15/22 17:38 polymyxin B Allergy Intermediate Rash Verified 02/15/22 17:38 Sulfa (Sulfonamide Allergy Intermediate Bactrim - Verified 02/15/22 17:38 Antibiotics) rash. sulfamethoxazole Allergy Intermediate Rash Verified 02/15/22 17:38 [From Bactrim] trimethoprim [From Bactrim] Allergy Intermediate Rash Verified 02/15/22 17:38 aspirin Allergy Unknown Nothing Verified 02/15/22 17:38 with Aspirin. Cephalosporins Allergy Unknown Unknown Verified 02/15/22 17:38 doxycycline Allergy Unknown ON LIST Verified 02/15/22 17:38 moxifloxacin Allergy Unknown Unknown Verified 02/15/22 17:38 Home Meds Home Medications Medication Instructions Recorded Confirmed duloxetine 60 mg capsule,delayed 60 mg PO QAM 11/20/18 02/15/22 release (Cymbalta) prednisone 5 mg tablet 5 mg PO DAILY 02/13/19 02/15/22 acetaminophen 325 mg tablet 650 mg PO Q4H PRN PAIN/FEVER 02/15/22 02/15/22 (Tylenol) acetaminophen 650 mg 650 mg PO QAM 02/15/22 02/15/22 tablet,extended release amlodipine 10 mg tablet 10 mg PO QAM 02/15/22 02/15/22 bisacodyl 10 mg rectal suppository 10 mg [place] DAILY PRN Constipation 02/15/22 02/15/22 cholecalciferol (vitamin D3) 25 25 mcg PO QAM 02/15/22 02/15/22 mcg (1,000 unit) capsule (Vitamin D3) divalproex 250 mg tablet,delayed 750 mg PO HS 02/15/22 02/15/22 release divalproex 500 mg tablet,delayed 500 mg PO QAM 02/15/22 02/15/22 release docusate sodium 100 mg capsule 100 mg PO BID 02/15/22 02/15/22 ferrous sulfate 325 mg (65 mg 325 mg PO BID 02/15/22 02/15/22 iron) tablet levothyroxine 125 mcg tablet 125 mcg PO QAM 02/15/22 02/15/22 magnesium hydroxide 400 mg/5 mL 30 ml PO DAILY PRN NO BM FOR 3 02/15/22 02/15/22 oral suspension (Milk of Magnesia) DAYS. magnesium oxide 400 mg PO QAM 02/15/22 02/15/22 menthol 1 applic topical Q8H PRN Pain 02/15/22 02/15/22 methenamine hippurate 1 gram 1 g PO BID 02/15/22 02/15/22 tablet (Hiprex) nystatin 100,000 unit/gram topical 1 applic topical TID 02/15/22 02/15/22 powder pantoprazole 40 mg tablet,delayed 40 mg PO DAILY 02/15/22 02/15/22 release quetiapine 100 mg tablet (Seroquel) 100 mg PO TID 02/15/22 02/15/22 quetiapine 200 mg tablet (Seroquel) 200 mg PO HS 02/15/22 02/15/22 topiramate 100 mg tablet 100 mg PO BID 02/15/22 02/15/22 tramadol 50 mg tablet 50 mg PO Q8H PRN Pain 02/15/22 02/15/22 Results & Data (ED) Vital Signs Vital Signs - 24 hr 02/15/22 15:14 02/15/22 15:31 02/15/22 16:37 Temperature 37.0 C Temperature Source Oral Pulse Rate 62 78 Pulse Rate [Apical] 63 Pulse Rhythm Regular Regular Pulse Rhythm [Apical] Pulse Strength Normal Respiratory Rate 20 20 12 Respiratory Effort / Characteristics Non-Labored Non-Labored Spontaneous Respiratory Depth Normal Normal Respiratory Pattern Regular Regular Blood Pressure 108/68 Blood Pressure [Right Arm] 129/79 Blood Pressure Mean 81 Blood Pressure Mean [Right Arm] 95 Blood Pressure Position Lying Blood Pressure Position [Right Arm] Semi-fowlers Pulse Oximetry 98 98 100 Oxygen Delivery Method Room Air Room Air Sepsis Recent Fever Within 48 Hours No Sepsis New/Unexplained Change in Mental Status No Sepsis Action Taken by Nursing No Action Required 02/15/22 18:00 Temperature Temperature Source Pulse Rate Pulse Rate [Apical] 83 Pulse Rhythm Pulse Rhythm [Apical] Regular Pulse Strength Respiratory Rate 20 Respiratory Effort / Characteristics Non-Labored Respiratory Depth Normal Respiratory Pattern Blood Pressure Blood Pressure [Right Arm] 118/80 Blood Pressure Mean Blood Pressure Mean [Right Arm] 92 Blood Pressure Position Blood Pressure Position [Right Arm] Lying Pulse Oximetry 97 Oxygen Delivery Method Room Air Sepsis Recent Fever Within 48 Hours Sepsis New/Unexplained Change in Mental Status Sepsis Action Taken by Nursing Laboratory Data Result diagrams: 02/15/22 15:12 02/15/22 15:12 Lab Results 02/15/22 02/15/22 02/15/22 Range/Units 15:12 15:12 15:12 WBC 3.00 L (4.8-10.8) K/ul RBC 2.63 L (4.63-6.08) M/uL Hgb 7.7 L (14.0-18.0) g/dl Hct 24.4 L (40.1-51.0) % MCV 92.8 (80.0-100.0) fL MCH 29.3 (25.0-34.0) pg MCHC 31.6 L (32.0-36.0) g/dL RDW Std Deviation 61.4 H (36.4-46.3) fL RDW Coeff of Debra 18.3 H (11.5-14.5) % Plt Count 136 (130-400) K/uL MPV 9.6 (9.4-12.4) fL Immature Gran % (Auto) 0.0 % Neut % (Auto) 68.4 % Lymph % (Auto) 24.0 % Laurens % (Auto) 6.3 % Eos % (Auto) 1.0 % Baso % (Auto) 0.3 % Reticulocyte % (Auto) (0.5-2.0) % Neut # (Auto) 2.05 (1.4-6.5) K/uL Lymph # (Auto) 0.72 L (1.2-3.4) K/uL Laurens # (Auto) 0.19 L (0.24-0.82) K/uL Eos # (Auto) 0.03 (0-0.50) K/uL Baso # (Auto) 0.01 (0-0.2) K/uL Reticulocyte # (0.02-0.10) 10^6/uL Immature Gran # (Auto) 0.00 (0.00-0.02) K/uL Platelet Estimate Decreased L (Normal) Polychromasia 1+ Hypochromasia Present PT 11.2 (9.0-12.0) Seconds INR 1.1 (0.9-1.1) APTT 33.4 H (21.0-31.0) Seconds PTT Ratio 1.2 Sodium 132 L (136-145) mmol/L Potassium 4.6 (3.5-5.1) mmol/L Chloride 98 (98-107) mmol/L Carbon Dioxide 28 (21-32) mmol/L Anion Gap 6 (3-11) BUN 31 H (6-23) mg/dl Creatinine 1.38 (0.6-1.4) mg/dl Est Cr Clr Drug Dosing Not Reportable Est GFR ( Amer) 64.9 ml/min Est GFR (Non-Af Amer) 56.0 ml/min BUN/Creatinine Ratio 22.5 H (10-20) Glucose 136 H (70-99(Fasting)) mg/dl Calcium 9.8 (8.5-10.1) mg/dl Iron (35-175) mcg/dl Transferrin (200-360) mg/dl Ferritin (8-388) ng/ml Total Bilirubin 0.4 (0.2-1.0) mg/dl AST 14 (13-39) U/L ALT 9 (7-52) U/L Alkaline Phosphatase 71 (34-104) U/L Total Protein 6.4 (6.0-8.3) gm/dl Albumin 2.8 L (3.4-5.0) gm/dl Globulin 3.6 (2.5-4.0) gm/dl Albumin/Globulin Ratio 0.8 L (0.9-2) Vitamin B12 (180-914) pg/ml Folate (>5.38) ng/ml SARS-CoV-2, RNA, NAAT (NEGATIVE) Blood Type Antibody Screen Antibody Identification Crossmatch 02/15/22 02/15/22 02/15/22 Range/Units 15:12 15:12 15:12 WBC (4.8-10.8) K/ul RBC (4.63-6.08) M/uL Hgb (14.0-18.0) g/dl Hct (40.1-51.0) % MCV (80.0-100.0) fL MCH (25.0-34.0) pg MCHC (32.0-36.0) g/dL RDW Std Deviation (36.4-46.3) fL RDW Coeff of Debra (11.5-14.5) % Plt Count (130-400) K/uL MPV (9.4-12.4) fL Immature Gran % (Auto) % Neut % (Auto) % Lymph % (Auto) % Laurens % (Auto) % Eos % (Auto) % Baso % (Auto) % Reticulocyte % (Auto) (0.5-2.0) % Neut # (Auto) (1.4-6.5) K/uL Lymph # (Auto) (1.2-3.4) K/uL Laurens # (Auto) (0.24-0.82) K/uL Eos # (Auto) (0-0.50) K/uL Baso # (Auto) (0-0.2) K/uL Reticulocyte # (0.02-0.10) 10^6/uL Immature Gran # (Auto) (0.00-0.02) K/uL Platelet Estimate (Normal) Polychromasia Hypochromasia PT (9.0-12.0) Seconds INR (0.9-1.1) APTT (21.0-31.0) Seconds PTT Ratio Sodium (136-145) mmol/L Potassium (3.5-5.1) mmol/L Chloride (98-107) mmol/L Carbon Dioxide (21-32) mmol/L Anion Gap (3-11) BUN (6-23) mg/dl Creatinine (0.6-1.4) mg/dl Est Cr Clr Drug Dosing Est GFR ( Amer) ml/min Est GFR (Non-Af Amer) ml/min BUN/Creatinine Ratio (10-20) Glucose (70-99(Fasting)) mg/dl Calcium (8.5-10.1) mg/dl Iron 29 L (35-175) mcg/dl Transferrin 153 L (200-360) mg/dl Ferritin 290.0 (8-388) ng/ml Total Bilirubin (0.2-1.0) mg/dl AST (13-39) U/L ALT (7-52) U/L Alkaline Phosphatase (34-104) U/L Total Protein (6.0-8.3) gm/dl Albumin (3.4-5.0) gm/dl Globulin (2.5-4.0) gm/dl Albumin/Globulin Ratio (0.9-2) Vitamin B12 314 (180-914) pg/ml Folate > 22.30 (>5.38) ng/ml SARS-CoV-2, RNA, NAAT (NEGATIVE) Blood Type Antibody Screen Antibody Identification Crossmatch 02/15/22 02/15/22 02/15/22 Range/Units 15:12 15:14 18:10 WBC (4.8-10.8) K/ul RBC (4.63-6.08) M/uL Hgb (14.0-18.0) g/dl Hct (40.1-51.0) % MCV (80.0-100.0) fL MCH (25.0-34.0) pg MCHC (32.0-36.0) g/dL RDW Std Deviation (36.4-46.3) fL RDW Coeff of Debra (11.5-14.5) % Plt Count (130-400) K/uL MPV (9.4-12.4) fL Immature Gran % (Auto) % Neut % (Auto) % Lymph % (Auto) % Laurens % (Auto) % Eos % (Auto) % Baso % (Auto) % Reticulocyte % (Auto) 2.8 H (0.5-2.0) % Neut # (Auto) (1.4-6.5) K/uL Lymph # (Auto) (1.2-3.4) K/uL Laurens # (Auto) (0.24-0.82) K/uL Eos # (Auto) (0-0.50) K/uL Baso # (Auto) (0-0.2) K/uL Reticulocyte # 0.07 (0.02-0.10) 10^6/uL Immature Gran # (Auto) (0.00-0.02) K/uL Platelet Estimate (Normal) Polychromasia Hypochromasia PT (9.0-12.0) Seconds INR (0.9-1.1) APTT (21.0-31.0) Seconds PTT Ratio Sodium (136-145) mmol/L Potassium (3.5-5.1) mmol/L Chloride (98-107) mmol/L Carbon Dioxide (21-32) mmol/L Anion Gap (3-11) BUN (6-23) mg/dl Creatinine (0.6-1.4) mg/dl Est Cr Clr Drug Dosing Est GFR ( Amer) ml/min Est GFR (Non-Af Amer) ml/min BUN/Creatinine Ratio (10-20) Glucose (70-99(Fasting)) mg/dl Calcium (8.5-10.1) mg/dl Iron (35-175) mcg/dl Transferrin (200-360) mg/dl Ferritin (8-388) ng/ml Total Bilirubin (0.2-1.0) mg/dl AST (13-39) U/L ALT (7-52) U/L Alkaline Phosphatase (34-104) U/L Total Protein (6.0-8.3) gm/dl Albumin (3.4-5.0) gm/dl Globulin (2.5-4.0) gm/dl Albumin/Globulin Ratio (0.9-2) Vitamin B12 (180-914) pg/ml Folate (>5.38) ng/ml SARS-CoV-2, RNA, NAAT NEGATIVE (NEGATIVE) Blood Type O Negative Antibody Screen POSITIVE A Antibody Identification Anti-D Crossmatch See Detail Administered Medications Sodium Chloride (Nss 1000ml) 1,000 mls @ 125 mls/hr IV .Q8H STA Stop: 02/15/22 23:19 Last Admin: 02/15/22 15:44 Dose: 125 mls/hr Documented By: RD Imaging Data Radiologist's Impression: Chest X-Ray 02/15/22 15:20 XR chest 1V portable CLINICAL HISTORY: anemia, fatigue COMPARISON STUDY: Chest radiograph December 12, 2019. FINDINGS: Chronic dislocation of the right shoulder is noted. There is subluxation versus chronic dislocation of the left shoulder. Old bilateral rib fractures are present. Lung volumes are mildly diminished, unchanged. No pneumothorax or pleural effusion is present. There is no consolidation to suggest pneumonia. Appearance of the chest is unchanged. Cardiomediastinal silhouette is stable. IMPRESSION: No acute cardiopulmonary findings. No significant change in appearance of the chest. ACT 112: Negative or not required by law. Electronically signed by: José Manuel Schmitz M.D. 02/15/2022 4:34 PM Discharge Plan Visit Data Chief Complaint: Abnormal Labs/Diagnostic Testing Stated Complaint: HGB 7.5 ED Provider: Daniel Zhao Discharge Problem: Symptomatic anemia Patient Disposition: Admitted As Inpatient Discharge Instructions Interventions: ED Discharge Assessment Last Done: 02/15/22 20:51
[2022-02-15 16:00] LABS: INR 1.1 (0.9-1.1); Partial Thromboplastin Ratio 1.2; Partial Thromboplastin Time 33.4 Seconds (21.0-31.0); Prothrombin Time 11.2 Seconds (9.0-12.0)
--- NOTE | 2022-02-15 16:00 | Electrocardiogram Report ---
Test Reason : Blood Pressure : / mmHG Vent. Rate : 060 BPM Atrial Rate : 060 BPM P-R Int : 188 ms QRS Dur : 148 ms QT Int : 440 ms P-R-T Axes : 080 -34 006 degrees QTc Int : 440 ms Normal sinus rhythm Left axis deviation Right bundle branch block Minimal voltage criteria for LVH, may be normal variant Abnormal ECG Confirmed by Greg Roach ([id number]) on 02/15/2022 4:00:25 PM Referred By: Confirmed By:Esau Roach
[2022-02-15 16:06] LABS: Alanine Aminotransferase 9 U/L (7-52); Albumin Globulin Ratio 0.8 (0.9-2); Albumin Level 2.8 gm/dl (3.4-5.0); Alkaline Phosphatase 71 U/L (34-104); Anion Gap 6 (3-11); Aspartate Aminotransferase 14 U/L (13-39); BUN Creatinine Ratio 22.5 (10-20); Bilirubin,Total 0.4 mg/dl (0.2-1.0); Blood Urea Nitrogen 31 mg/dl (6-23); Calcium 9.8 mg/dl (8.5-10.1); Carbon Dioxide 28 mmol/L (21-32); Chloride 98 mmol/L (98-107); Est GFR (African American) 64.9 ml/min; Globulin 3.6 gm/dl (2.5-4.0); Glucose 136 mg/dl (70-99(Fasting)); Hematocrit (blood only) 24.4 % (40.1-51.0); Hemoglobin 7.7 g/dl (14.0-18.0); Mean Corpuscular Hemoglobin 29.3 pg (25.0-34.0); Mean Corpuscular Hgb Conc 31.6 g/dL (32.0-36.0); Mean Corpuscular Volume 92.8 fL (80.0-100.0); Mean Platelet Volume 9.6 fL (9.4-12.4); Platelet Count 136 K/uL (130-400); Potassium 4.6 mmol/L (3.5-5.1); RDW Coefficient of Variation 18.3 % (11.5-14.5); RDW Standard Deviation 61.4 fL (36.4-46.3); Red Blood Count 2.63 M/uL (4.63-6.08); Sodium 132 mmol/L (136-145); Total Protein 6.4 gm/dl (6.0-8.3)
[2022-02-15 16:13] LABS: Basophils # (auto) 0.01 K/uL (0-0.2); Basophils % (auto) 0.3 %; Eosinophils # (auto) 0.03 K/uL (0-0.50); Hypochromasia Present; Lymphocytes # (auto) 0.72 K/uL (1.2-3.4); Monocytes # (auto) 0.19 K/uL (0.24-0.82); Monocytes % (auto) 6.3 %; Neutrophils # (auto) 2.05 K/uL (1.4-6.5); Neutrophils % (auto) 68.4 %; Platelet Estimate Decreased (Normal); Polychromasia 1+
--- NOTE | 2022-02-15 16:37 | XRay Report ---
XR chest 1V portable CLINICAL HISTORY: anemia, fatigue COMPARISON STUDY: Chest radiograph December 12, 2019. FINDINGS: Chronic dislocation of the right shoulder is noted. There is subluxation versus chronic dis location of the left shoulder. Old bilateral rib fractures are present. Lung volumes are mildly dimin ished, unchanged. No pneumothorax or pleural effusion is present. There is no consolidation to sugges t pneumonia. Appearance of the chest is unchanged. Cardiomediastinal silhouette is stable. IMPRESSION: No acute cardiopulmonary findings. No significant change in appearance of the chest. ACT 112: Negative or not required by law. Electronically signed by: José Manuel Schmitz M.D. 02/15/2022 4:34 PM
--- NOTE | 2022-02-15 17:58 | History & Physical Report ---
Date of Service February 15, 2022 Assessment & Plan (1) Symptomatic anemia: Plan: Acute on chronic anemia History chronic thrombocytopenia Patient is 56 y/o M with PMH vasculitis on prednisone, HTN, HLD, CKD III, schizoaffective disorder, bipolar disorder, chronic anemia, chronic thrombocytopenia, history of posttraumatic seizure disorder, hypothyroidism, DM II presented to ER for abnormal outpatient labs with Hgb: 7.5 on 02/14/22. +fatigue, Denies CP, SOB, increased dizziness, melena, hematochezia Today in ER H/H: 7.7/24. Baseline hemoglobin is 8.9-10. Hgb of 9.4 on 02/09/2022 per sister Hemoccult pending Anemia labs pending Continue ferrous sulfate ?anemia secondary to ecchymosis to LUE, left chest wall vs underlying GI bleed Type and cross and transfuse 1 unit PRBC Blood consent was obtained from the patient as well as discussed over the phone with Iris Brandt, pt's sister and POA as delegated by Dr. Aparicio. Risks and benefits were explained. All questions were answered, and the patient and patients sister was offered the opportunity to discuss with attending physician and declined. Repeat H&H in am GI consult NPO midnight (2) Chronic kidney disease (CKD), stage III (moderate): Plan: Cr: 1.38. Baseline 1.4-1.6 Monitor renal functions, avoid nephrotoxic agents when possible (3) Diabetes mellitus, type II: Plan: A1c: 5.4 on 02/01/22 Diet controlled (4) Hypertension: Plan: Continue amlodipine (5) Hypothyroidism: Plan: Continue levothyroxine (6) Vasculitis: Plan: On chronic prednisone Continue prednisone (7) GERD (gastroesophageal reflux disease): Plan: Continue oral PPI (8) Schizoaffective disorder, bipolar type: Plan: Continue duloxetine, Seroquel, topiramate (9) Recurrent UTI: Plan: Continue methenamine (10) Post-traumatic seizures: Plan: Continue divalproex DVT Prophylaxis SCDs Full Code as per discussion with pt and per pt's paperwork from [facility] Pt was seen and care coordinated with Dr Aparicio. See addendum History of Present Illness Chief Complaint: Anemia Primary Care Provider: Don Watters MD Patient is 56 y/o M with PMH vasculitis on prednisone, HTN, HLD, CKD III, schizoaffective disorder, bipolar disorder, chronic anemia, chronic thrombocytopenia, history of posttraumatic seizure disorder, hypothyroidism, DM II presented to ER for abnormal outpatient labs with Hgb: 7.5. History obtained from patient, patient's sister and chart review. Patient had Outpatient labs drawn 02/14/2022 with hemoglobin of 7.5 and was referred to ER today. Patient reports has been feeling tired the past couple of days. Denies chest pain, shortness of breath, syncope. He reports chronic intermittent dizziness if he stands up too quickly, denies any increased symptoms. Patient reports last BM 4 days ago. Denies any noted melena, hematochezia. Patient sister reports his baseline hemoglobin is 8.9-10. Had hemoglobin of 9.4 on 02/09/2022 per sister. 2 weeks ago COVID-19 shot and then noticed bruising to left arm extending to left chest. Denies any falls and Leonard manner denies any known falls. Patient denies any shoulder or chest discomfort. Sister reports he was in [facility] for psych issues in 12/2021 after his medications were discontinued and changed secondary to thrombocytopenia. She states he did not do well with doses of Haldol and caused paresthesias and urinary incontinence. History EGD and EUS in 10/2021 with no significant sign pathology in ampulla, common bile duct, visualized portion of liver, or pancreatic head and neck, 80mm cystic lesion seen in pancreatic body likely pancreatic pseudocyst. Patient has denied colonoscopy. Patient's sister said she was going with his wishes of not pursuing colonoscopy. Denies fever/chills, diaphoresis, N/V, ABBOTT, vision changes, neck pain, CP, SOB, orthopnea, palpitations, cough, sore throat, rhinorrhea, abdominal pain, extremity weakness, extremity edema, rashes, dysuria, hematuria. Denies NSAID use. Allergies Allergy/AdvReac Type Severity Reaction Status Date / Time bacitracin Allergy Intermediate Rash Verified 02/15/22 17:38 furosemide Allergy Intermediate Oral Verified 02/15/22 17:38 solution - rash neomycin Allergy Intermediate Rash Verified 02/15/22 17:38 polymyxin B Allergy Intermediate Rash Verified 02/15/22 17:38 Sulfa (Sulfonamide Allergy Intermediate Bactrim - Verified 02/15/22 17:38 Antibiotics) rash. sulfamethoxazole Allergy Intermediate Rash Verified 02/15/22 17:38 [From Bactrim] trimethoprim [From Bactrim] Allergy Intermediate Rash Verified 02/15/22 17:38 aspirin Allergy Unknown Nothing Verified 02/15/22 17:38 with Aspirin. Cephalosporins Allergy Unknown Unknown Verified 02/15/22 17:38 doxycycline Allergy Unknown ON LIST Verified 02/15/22 17:38 moxifloxacin Allergy Unknown Unknown Verified 02/15/22 17:38 Home Medications Medication Instructions Recorded Confirmed Type duloxetine 60 mg capsule,delayed 60 mg PO QAM 11/20/18 02/15/22 History release (Cymbalta) prednisone 5 mg tablet 5 mg PO DAILY 02/13/19 02/15/22 History acetaminophen 325 mg tablet 650 mg PO Q4H PRN PAIN/FEVER 02/15/22 02/15/22 History (Tylenol) acetaminophen 650 mg 650 mg PO QAM 02/15/22 02/15/22 History tablet,extended release amlodipine 10 mg tablet 10 mg PO QAM 02/15/22 02/15/22 History bisacodyl 10 mg rectal suppository 10 mg OH DAILY PRN Constipation 02/15/22 02/15/22 History cholecalciferol (vitamin D3) 25 25 mcg PO QAM 02/15/22 02/15/22 History mcg (1,000 unit) capsule (Vitamin D3) divalproex 250 mg tablet,delayed 750 mg PO HS 02/15/22 02/15/22 History release divalproex 500 mg tablet,delayed 500 mg PO QAM 02/15/22 02/15/22 History release docusate sodium 100 mg capsule 100 mg PO BID 02/15/22 02/15/22 History ferrous sulfate 325 mg (65 mg 325 mg PO BID 02/15/22 02/15/22 History iron) tablet levothyroxine 125 mcg tablet 125 mcg PO QAM 02/15/22 02/15/22 History magnesium hydroxide 400 mg/5 mL 30 ml PO DAILY PRN NO BM FOR 3 02/15/22 02/15/22 History oral suspension (Milk of Magnesia) DAYS. magnesium oxide 400 mg PO QAM 02/15/22 02/15/22 History menthol 1 applic topical Q8H PRN Pain 02/15/22 02/15/22 History methenamine hippurate 1 gram 1 g PO BID 02/15/22 02/15/22 History tablet (Hiprex) nystatin 100,000 unit/gram topical 1 applic topical TID 02/15/22 02/15/22 History powder pantoprazole 40 mg tablet,delayed 40 mg PO DAILY 02/15/22 02/15/22 History release quetiapine 100 mg tablet (Seroquel) 100 mg PO TID 02/15/22 02/15/22 History quetiapine 200 mg tablet (Seroquel) 200 mg PO HS 02/15/22 02/15/22 History topiramate 100 mg tablet 100 mg PO BID 02/15/22 02/15/22 History tramadol 50 mg tablet 50 mg PO Q8H PRN Pain 02/15/22 02/15/22 History Past Med/Surg History Medical History 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 Bipolar disorder Chronic pain CKD (chronic kidney disease), stage III Diabetes mellitus type 2 with complications Diabetes mellitus, type II Diastolic dysfunction GERD (gastroesophageal reflux disease) Goiter Hyperlipidemia Hyperprolactinemia Hypertension Hypertension Hypothyroidism ALKA (iron deficiency anemia) JHOANA (obstructive sleep apnea) does not use cpap or bipap Pancreatitis Post-traumatic seizures RBBB Reflux esophagitis Schizoaffective disorder, bipolar type Thrombocytopenia Vasculitis Surgical History History of fasciotomy History of total right hip arthroplasty History of tracheostomy Family History Other Family history unobtainable Social History Smoking Status: Never smoker Tobacco Type: Smokeless Tobacco (Dip or Chew) Second Hand Exposure: No; Hx Alcohol Use: No Hx Substance Use: No Preferred Language: Kazakh Communication Ability: Effective Etl Application Developer Required: No marital status: Single Current Living Situation: Family Current Living Situation Comment: Lives in sister's shed Feels Safe at Home: Declines to Answer Assistive Devices: Wheelchair Review of Systems Review of Systems: All systems reviewed & are unremarkable except as noted in HPI & below Physical Exam Physical Exam: General: no distress, WDWN Head: normocephalic, atraumatic Eyes: PERRL, EOM's intact, pale conjunctiva, anicteric ENT: normal inspection external ears, nose, mucous membranes moist Neck: supple, trachea midline, non-tender Lungs: clear, no respiratory distress, no wheezing/rhonchi/rales; chest wall non-tender to palpation CV: RRR, no murmur, no pretibial edema Abd: normal BS, soft, non-tender Ext: no cyanosis, no calf tenderness Neuro: Alert, oriented to person, year, says date is 01/15/22, and knows is in hospital, no focal deficits noted, often needs redirected in conversation as will talk about things off topic, cooperative Skin: warm, dry, pale, left upper arm, left chest wall with ecchymosis Results & Data Results & Data ([facility]) Vital Signs (Past 12 Hours) Vital Signs Temp Pulse Pulse Resp BP BP Pulse Ox 02/15/22 16:37 63 12 129/79 100 02/15/22 15:31 78 20 98 02/15/22 15:14 37.0 C 62 20 108/68 98 O2 Del Method 02/15/22 16:37 02/15/22 15:31 Room Air 02/15/22 15:14 Room Air Laboratory Results Short CBC 02/15/22 Range/Units 15:12 WBC 3.00 L (4.8-10.8) K/ul Hgb 7.7 L (14.0-18.0) g/dl Hct 24.4 L (40.1-51.0) % Plt Count 136 (130-400) K/uL BMP 02/15/22 15:12 Sodium 132 L Potassium 4.6 Chloride 98 Carbon Dioxide 28 BUN 31 H Creatinine 1.38 Glucose 136 H Calcium 9.8 Liver Function 02/15/22 Range/Units 15:12 Total Bilirubin 0.4 (0.2-1.0) mg/dl AST 14 (13-39) U/L ALT 9 (7-52) U/L Alkaline Phosphatase 71 (34-104) U/L Albumin 2.8 L (3.4-5.0) gm/dl Diagnostic Findings Chest X-Ray 02/15/22 15:20 XR chest 1V portable CLINICAL HISTORY: anemia, fatigue COMPARISON STUDY: Chest radiograph December 12, 2019. FINDINGS: Chronic dislocation of the right shoulder is noted. There is subluxation versus chronic dislocation of the left shoulder. Old bilateral rib fractures are present. Lung volumes are mildly diminished, unchanged. No pneumothorax or pleural effusion is present. There is no consolidation to sug gest pneumonia. Appearance of the chest is unchanged. Cardiomediastinal silhouette is stable. IMPRESSION: No acute cardiopulmonary findings. No significant change in appearance of the chest. ACT 112: Negative or not required by law. Electronically signed by: José Manuel Schmitz M.D. 02/15/2022 4:34 PM
[2022-02-15] MEDS ORDERED: SODIUM CHLORIDE 0.9% 250 ML IV PRN (20:06)
[2022-02-15 20:15] LABS: Reticulocyte % 2.8 % (0.5-2.0); Reticulocytes # 0.07 10^6/uL (0.02-0.10)
[2022-02-15] MEDS ORDERED: POLYETHYLENE (MIRALAX) 17 GM PACK PO PRN (21:40)
[2022-02-15] MEDS ORDERED: ACETAMINOPHEN 325 MG TAB PO PRN (21:40)
[2022-02-15] MEDS: NYSTATIN POWDER 15GM BTL EXT SCH (22:24)
[2022-02-15] MEDS: TOPIRAMATE 100 MG TAB PO SCH (22:24)
[2022-02-15] MEDS: DIVALPROEX DELAY RELEASE 250 MG TABEC PO SCH (22:26)
[2022-02-15] MEDS: DOCUSATE SODIUM 100 MG CAP PO SCH (22:26)
[2022-02-15] MEDS: FERROUS SULFATE 325 MG TAB PO SCH (22:27)
[2022-02-15] MEDS: QUEtiapine FUMARATE 200 MG TAB PO SCH (22:28)
[2022-02-15] MEDS: METHENAMINE HIPPURATE 1 GM TAB PO SCH (22:28)
[2022-02-15] MEDS: QUEtiapine FUMARATE 100 MG TABLET PO SCH (22:29)
[2022-02-16] MEDS: LEVOTHYROXINE SODIUM 125 MCG TABLET PO SCH (06:01)
[2022-02-16 06:46] LABS: Hematocrit (blood only) 29.6 % (40.1-51.0); Hemoglobin 9.5 g/dl (14.0-18.0); Mean Corpuscular Hemoglobin 29.6 pg (25.0-34.0); Mean Corpuscular Hgb Conc 32.1 g/dL (32.0-36.0); Mean Corpuscular Volume 92.2 fL (80.0-100.0); Mean Platelet Volume 9.1 fL (9.4-12.4); Nucleated RBC # (auto) 0.02 K/uL (0-0); Nucleated RBC % (auto) 0.6 %; Platelet Count 141 K/uL (130-400); RDW Coefficient of Variation 18.3 % (11.5-14.5); RDW Standard Deviation 61.1 fL (36.4-46.3); Red Blood Count 3.21 M/uL (4.63-6.08); White Blood Count 3.34 K/ul (4.8-10.8)
[2022-02-16 07:24] LABS: BUN Creatinine Ratio 22.2 (10-20); Calcium 9.5 mg/dl (8.5-10.1); Creatinine Clr Calc Pharmacy 61.8 ml/min; Est GFR (African American) 72.4 ml/min; Est GFR (Non-African American) 62.5 ml/min
[2022-02-16] MEDS: NYSTATIN POWDER 15GM BTL EXT SCH ×3 (08:19→20:46)
[2022-02-16] MEDS: METHENAMINE HIPPURATE 1 GM TAB PO SCH ×2 (08:19→20:48)
[2022-02-16] MEDS: QUEtiapine FUMARATE 100 MG TABLET PO SCH ×3 (08:20→20:49)
[2022-02-16] MEDS: MAGNESIUM OXIDE 400 MG TAB PO SCH (08:20)
[2022-02-16] MEDS: PANTOprazole 40 MG TAB PO SCH (08:20)
[2022-02-16] MEDS: DIVALPROEX DELAY RELEASE 500 MG TAB PO SCH (08:21)
[2022-02-16] MEDS: amLODIPine BESYLATE 5 MG TAB PO SCH (08:21)
[2022-02-16] MEDS: predniSONE 5 MG TAB PO SCH (08:21)
[2022-02-16] MEDS: DULoxetine HCL 60 MG CAP PO SCH (08:21)
[2022-02-16] MEDS: FERROUS SULFATE 325 MG TAB PO SCH ×2 (08:21→20:48)
[2022-02-16] MEDS: TOPIRAMATE 100 MG TAB PO SCH ×2 (08:26→20:47)
[2022-02-16] MEDS: DOCUSATE SODIUM 100 MG CAP PO SCH ×2 (08:26→20:50)
--- NOTE | 2022-02-16 09:29 | Gastrointestinal Consultation ---
Date of Consultation February 16, 2022 Assessment & Plan (1) Symptomatic anemia: 56 year old male admitted w/ symptomatic anemia, report of bruising on chest/arm without signs of GI blood loss. EGD/EUS 10/2021 reviewed. He has never had a colonoscopy but is not agreeable to examination Anemia - EGD completed 10/2021 - No current indication for repeat examination - Colonoscopy refused - If he is agreeable, encouraged to contact our office to schedule - CTAP w/ IV and PO contrast recommended - Hx of Peck's - Continue PO PPI 40 mg once daily - Will need EGD 2022 - Tobacco, ETOH avoidance, GERD dietary and lifestyle changes - Trend H&H - Transfuse PRN - Monitor/document output - No GI contraindication to diet as no evidence. Thank you for allowing us to participate in the care of this patient. Please call with any acute changes, questions or concerns. Please see addendum below with additional recommendation from my supervising physician. of GI bleeding and no current plan for endoscopic evaluation History of Present Illness Reason for Consultation: anemia Requesting Physician: Markus Attending Physician: Logan Aparicio MD History of Present Illness 56 year old male with history of vasculitis on prednisone, HTN, HLD, CKD III, schizoaffective disorder, bipolar disorder, chronic anemia, chronic thrombocytopenia, history of posttraumatic seizure disorder, hypothyroidism, T2DM admitted w/ anemia, HGB 7.5. Pt was seen and evaluated, chart reviewed. He is a poor historian. This AM he notes he is feeling well. Denies abd pain. No nausea, vomiting. Moving bowels well. No black or bloody stools. No NSAIDs Is on Prednisone No AC He has never had a colonoscopy He did have EGD/EUS this summer. EGD biopsies with Barretts on a one year recall. EUS with 80 mm psedocyst and a [address] was recommended. HGB 7.7 s/p 1 unit RBC w/ hgb 9.5 today Allergies Allergy/AdvReac Type Severity Reaction Status Date / Time bacitracin Allergy Intermediate Rash Verified 02/15/22 17:38 furosemide Allergy Intermediate Oral Verified 02/15/22 17:38 solution - rash neomycin Allergy Intermediate Rash Verified 02/15/22 17:38 polymyxin B Allergy Intermediate Rash Verified 02/15/22 17:38 Sulfa (Sulfonamide Allergy Intermediate Bactrim - Verified 02/15/22 17:38 Antibiotics) rash. sulfamethoxazole Allergy Intermediate Rash Verified 02/15/22 17:38 [From Bactrim] trimethoprim [From Bactrim] Allergy Intermediate Rash Verified 02/15/22 17:38 aspirin Allergy Unknown Nothing Verified 02/15/22 17:38 with Aspirin. Cephalosporins Allergy Unknown Unknown Verified 02/15/22 17:38 doxycycline Allergy Unknown ON LIST Verified 02/15/22 17:38 moxifloxacin Allergy Unknown Unknown Verified 02/15/22 17:38 Home Medications Medication Instructions Recorded Confirmed Type duloxetine 60 mg capsule,delayed 60 mg PO QAM 11/20/18 02/15/22 History release (Cymbalta) prednisone 5 mg tablet 5 mg PO DAILY 02/13/19 02/15/22 History acetaminophen 325 mg tablet 650 mg PO Q4H PRN PAIN/FEVER 02/15/22 02/15/22 History (Tylenol) acetaminophen 650 mg 650 mg PO QAM 02/15/22 02/15/22 History tablet,extended release amlodipine 10 mg tablet 10 mg PO QAM 02/15/22 02/15/22 History bisacodyl 10 mg rectal suppository 10 mg AR DAILY PRN Constipation 02/15/22 02/15/22 History cholecalciferol (vitamin D3) 25 25 mcg PO QAM 02/15/22 02/15/22 History mcg (1,000 unit) capsule (Vitamin D3) divalproex 250 mg tablet,delayed 750 mg PO HS 02/15/22 02/15/22 History release divalproex 500 mg tablet,delayed 500 mg PO QAM 02/15/22 02/15/22 History release docusate sodium 100 mg capsule 100 mg PO BID 02/15/22 02/15/22 History ferrous sulfate 325 mg (65 mg 325 mg PO BID 02/15/22 02/15/22 History iron) tablet levothyroxine 125 mcg tablet 125 mcg PO QAM 02/15/22 02/15/22 History magnesium hydroxide 400 mg/5 mL 30 ml PO DAILY PRN NO BM FOR 3 02/15/22 02/15/22 History oral suspension (Milk of Magnesia) DAYS. magnesium oxide 400 mg PO QAM 02/15/22 02/15/22 History menthol 1 applic topical Q8H PRN Pain 02/15/22 02/15/22 History methenamine hippurate 1 gram 1 g PO BID 02/15/22 02/15/22 History tablet (Hiprex) nystatin 100,000 unit/gram topical 1 applic topical TID 02/15/22 02/15/22 History powder pantoprazole 40 mg tablet,delayed 40 mg PO DAILY 02/15/22 02/15/22 History release quetiapine 100 mg tablet (Seroquel) 100 mg PO TID 02/15/22 02/15/22 History quetiapine 200 mg tablet (Seroquel) 200 mg PO HS 02/15/22 02/15/22 History topiramate 100 mg tablet 100 mg PO BID 02/15/22 02/15/22 History tramadol 50 mg tablet 50 mg PO Q8H PRN Pain 02/15/22 02/15/22 History Patient History Medical History 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 Bipolar disorder Chronic pain CKD (chronic kidney disease), stage III Diabetes mellitus type 2 with complications Diabetes mellitus, type II Diastolic dysfunction GERD (gastroesophageal reflux disease) Goiter Hyperlipidemia Hyperprolactinemia Hypertension Hypertension Hypothyroidism ALKA (iron deficiency anemia) JHOANA (obstructive sleep apnea) does not use cpap or bipap Pancreatitis Post-traumatic seizures RBBB Reflux esophagitis Schizoaffective disorder, bipolar type Thrombocytopenia Vasculitis Surgical History History of fasciotomy History of total right hip arthroplasty History of tracheostomy Family History Other Family history unobtainable Social History Smoking Status: Never smoker Tobacco Type: Smokeless Tobacco (Dip or Chew) Second Hand Exposure: No; Hx Alcohol Use: No Hx Substance Use: No Preferred Language: Korean Communication Ability: Effective Talent Acquisition Coordinator Required: No marital status: Single Current Living Situation: Personal Care Facility Current Living Situation Comment: Lives in sister's shed Other Information That Helps Us Care for You: No Feels Safe at Home: Declines to Answer Assistive Devices: Glasses and Wheelchair Review of Systems Review of Systems: All systems reviewed & are unremarkable except as noted in HPI & below Physical Exam Constitutional: WD/WN, vitals as above Neck: trachea midline, no thyromegaly Respiratory: normal respiratory effort; no respiratory distress and no labored breathing Cardiovascular: Rate/Rhythm: regular rate Gastrointestinal (Abdomen): normal bowel sounds, soft, nontender, no hepatosplenomegaly Skin: no rashes, warm and dry Results & Data ([facility]) Vital Signs (Past 12 Hours) Vital Signs Temp Pulse Pulse Pulse Resp BP BP 02/16/22 06:21 54 L 02/16/22 06:18 36.4 C L 66 18 135/91 02/16/22 03:12 66 02/16/22 02:15 36.6 C 54 L 18 126/76 02/16/22 01:45 36.6 C 55 L 18 124/75 02/16/22 00:45 36.5 C 54 L 18 133/85 02/15/22 23:45 36.6 C 55 L 18 135/80 02/15/22 23:15 36.6 C 54 L 18 131/82 02/15/22 23:00 36.5 C 57 L 18 130/86 02/15/22 22:43 36.5 C 57 L 18 128/77 02/16/22 01:42 02/16/22 01:42 36.6 C 53 L 16 02/15/22 23:00 36.5 C 57 L 18 130/86 02/15/22 22:36 36.5 C 57 L 18 128/77 BP Pulse Ox O2 Del Method 02/16/22 06:21 02/16/22 06:18 97 Room Air 02/16/22 03:12 02/16/22 02:15 95 02/16/22 01:45 94 02/16/22 00:45 100 02/15/22 23:45 95 02/15/22 23:15 100 02/15/22 23:00 92 02/15/22 22:43 92 02/16/22 01:42 Room Air 02/16/22 01:42 120/67 96 Room Air 02/15/22 23:00 92 02/15/22 22:36 92 Laboratory Results 02/16/22 02/16/22 02/15/22 Range/Units 06:04 06:04 18:10 WBC 3.34 L (4.8-10.8) K/ul RBC 3.21 L (4.63-6.08) M/uL Hgb 9.5 L (14.0-18.0) g/dl Hct 29.6 L (40.1-51.0) % MCV 92.2 (80.0-100.0) fL MCH 29.6 (25.0-34.0) pg MCHC 32.1 (32.0-36.0) g/dL RDW Std Deviation 61.1 H (36.4-46.3) fL RDW Coeff of Debra 18.3 H (11.5-14.5) % Plt Count 141 (130-400) K/uL MPV 9.1 L (9.4-12.4) fL Immature Gran % (Auto) % Neut % (Auto) % Lymph % (Auto) % Orange % (Auto) % Eos % (Auto) % Baso % (Auto) % Reticulocyte % (Auto) (0.5-2.0) % Neut # (Auto) (1.4-6.5) K/uL Lymph # (Auto) (1.2-3.4) K/uL Orange # (Auto) (0.24-0.82) K/uL Eos # (Auto) (0-0.50) K/uL Baso # (Auto) (0-0.2) K/uL Reticulocyte # (0.02-0.10) 10^6/uL Immature Gran # (Auto) (0.00-0.02) K/uL Absolute Nucleated RBC 0.02 H (0-0) K/uL Nucleated RBC % (auto) 0.6 % Platelet Estimate (Normal) Polychromasia Hypochromasia PT (9.0-12.0) Seconds INR (0.9-1.1) APTT (21.0-31.0) Seconds PTT Ratio Sodium 142 D (136-145) mmol/L Potassium 4.0 (3.5-5.1) mmol/L Chloride 109 H (98-107) mmol/L Carbon Dioxide 30 (21-32) mmol/L Anion Gap 3 (3-11) BUN 28 H (6-23) mg/dl Creatinine 1.26 (0.6-1.4) mg/dl Est Cr Clr Drug Dosing 61.8 Est GFR ( Amer) 72.4 ml/min Est GFR (Non-Af Amer) 62.5 ml/min BUN/Creatinine Ratio 22.2 H (10-20) Glucose 74 (70-99(Fasting)) mg/dl Calcium 9.5 (8.5-10.1) mg/dl Iron (35-175) mcg/dl Transferrin (200-360) mg/dl Ferritin (8-388) ng/ml Total Bilirubin (0.2-1.0) mg/dl AST (13-39) U/L ALT (7-52) U/L Alkaline Phosphatase (34-104) U/L Total Protein (6.0-8.3) gm/dl Albumin (3.4-5.0) gm/dl Globulin (2.5-4.0) gm/dl Albumin/Globulin Ratio (0.9-2) Vitamin B12 (180-914) pg/ml Folate (>5.38) ng/ml SARS-CoV-2, RNA, NAAT NEGATIVE (NEGATIVE) Blood Type Antibody Screen Antibody Identification Antibody ID Comment Crossmatch 02/15/22 02/15/22 02/15/22 Range/Units 15:14 15:12 15:12 WBC (4.8-10.8) K/ul RBC (4.63-6.08) M/uL Hgb (14.0-18.0) g/dl Hct (40.1-51.0) % MCV (80.0-100.0) fL MCH (25.0-34.0) pg MCHC (32.0-36.0) g/dL RDW Std Deviation (36.4-46.3) fL RDW Coeff of Debra (11.5-14.5) % Plt Count (130-400) K/uL MPV (9.4-12.4) fL Immature Gran % (Auto) % Neut % (Auto) % Lymph % (Auto) % Orange % (Auto) % Eos % (Auto) % Baso % (Auto) % Reticulocyte % (Auto) 2.8 H (0.5-2.0) % Neut # (Auto) (1.4-6.5) K/uL Lymph # (Auto) (1.2-3.4) K/uL Orange # (Auto) (0.24-0.82) K/uL Eos # (Auto) (0-0.50) K/uL Baso # (Auto) (0-0.2) K/uL Reticulocyte # 0.07 (0.02-0.10) 10^6/uL Immature Gran # (Auto) (0.00-0.02) K/uL Absolute Nucleated RBC (0-0) K/uL Nucleated RBC % (auto) % Platelet Estimate (Normal) Polychromasia Hypochromasia PT (9.0-12.0) Seconds INR (0.9-1.1) APTT (21.0-31.0) Seconds PTT Ratio Sodium (136-145) mmol/L Potassium (3.5-5.1) mmol/L Chloride (98-107) mmol/L Carbon Dioxide (21-32) mmol/L Anion Gap (3-11) BUN (6-23) mg/dl Creatinine (0.6-1.4) mg/dl Est Cr Clr Drug Dosing Est GFR ( Amer) ml/min Est GFR (Non-Af Amer) ml/min BUN/Creatinine Ratio (10-20) Glucose (70-99(Fasting)) mg/dl Calcium (8.5-10.1) mg/dl Iron (35-175) mcg/dl Transferrin (200-360) mg/dl Ferritin (8-388) ng/ml Total Bilirubin (0.2-1.0) mg/dl AST (13-39) U/L ALT (7-52) U/L Alkaline Phosphatase (34-104) U/L Total Protein (6.0-8.3) gm/dl Albumin (3.4-5.0) gm/dl Globulin (2.5-4.0) gm/dl Albumin/Globulin Ratio (0.9-2) Vitamin B12 314 (180-914) pg/ml Folate (>5.38) ng/ml SARS-CoV-2, RNA, NAAT (NEGATIVE) Blood Type O Negative Antibody Screen POSITIVE A Antibody Identification Anti-D Antibody ID Comment Crossmatch See Detail 02/15/22 02/15/22 02/15/22 Range/Units 15:12 15:12 15:12 WBC (4.8-10.8) K/ul RBC (4.63-6.08) M/uL Hgb (14.0-18.0) g/dl Hct (40.1-51.0) % MCV (80.0-100.0) fL MCH (25.0-34.0) pg MCHC (32.0-36.0) g/dL RDW Std Deviation (36.4-46.3) fL RDW Coeff of Debra (11.5-14.5) % Plt Count (130-400) K/uL MPV (9.4-12.4) fL Immature Gran % (Auto) % Neut % (Auto) % Lymph % (Auto) % Orange % (Auto) % Eos % (Auto) % Baso % (Auto) % Reticulocyte % (Auto) (0.5-2.0) % Neut # (Auto) (1.4-6.5) K/uL Lymph # (Auto) (1.2-3.4) K/uL Orange # (Auto) (0.24-0.82) K/uL Eos # (Auto) (0-0.50) K/uL Baso # (Auto) (0-0.2) K/uL Reticulocyte # (0.02-0.10) 10^6/uL Immature Gran # (Auto) (0.00-0.02) K/uL Absolute Nucleated RBC (0-0) K/uL Nucleated RBC % (auto) % Platelet Estimate (Normal) Polychromasia Hypochromasia PT (9.0-12.0) Seconds INR (0.9-1.1) APTT (21.0-31.0) Seconds PTT Ratio Sodium 132 L (136-145) mmol/L Potassium 4.6 (3.5-5.1) mmol/L Chloride 98 (98-107) mmol/L Carbon Dioxide 28 (21-32) mmol/L Anion Gap 6 (3-11) BUN 31 H (6-23) mg/dl Creatinine 1.38 (0.6-1.4) mg/dl Est Cr Clr Drug Dosing Not Reportable Est GFR ( Amer) 64.9 ml/min Est GFR (Non-Af Amer) 56.0 ml/min BUN/Creatinine Ratio 22.5 H (10-20) Glucose 136 H (70-99(Fasting)) mg/dl Calcium 9.8 (8.5-10.1) mg/dl Iron 29 L (35-175) mcg/dl Transferrin 153 L (200-360) mg/dl Ferritin 290.0 (8-388) ng/ml Total Bilirubin 0.4 (0.2-1.0) mg/dl AST 14 (13-39) U/L ALT 9 (7-52) U/L Alkaline Phosphatase 71 (34-104) U/L Total Protein 6.4 (6.0-8.3) gm/dl Albumin 2.8 L (3.4-5.0) gm/dl Globulin 3.6 (2.5-4.0) gm/dl Albumin/Globulin Ratio 0.8 L (0.9-2) Vitamin B12 (180-914) pg/ml Folate > 22.30 (>5.38) ng/ml SARS-CoV-2, RNA, NAAT (NEGATIVE) Blood Type Antibody Screen Antibody Identification Antibody ID Comment Crossmatch 02/15/22 02/15/22 Range/Units 15:12 15:12 WBC 3.00 L (4.8-10.8) K/ul RBC 2.63 L (4.63-6.08) M/uL Hgb 7.7 L (14.0-18.0) g/dl Hct 24.4 L (40.1-51.0) % MCV 92.8 (80.0-100.0) fL MCH 29.3 (25.0-34.0) pg MCHC 31.6 L (32.0-36.0) g/dL RDW Std Deviation 61.4 H (36.4-46.3) fL RDW Coeff of Debra 18.3 H (11.5-14.5) % Plt Count 136 (130-400) K/uL MPV 9.6 (9.4-12.4) fL Immature Gran % (Auto) 0.0 % Neut % (Auto) 68.4 % Lymph % (Auto) 24.0 % Orange % (Auto) 6.3 % Eos % (Auto) 1.0 % Baso % (Auto) 0.3 % Reticulocyte % (Auto) (0.5-2.0) % Neut # (Auto) 2.05 (1.4-6.5) K/uL Lymph # (Auto) 0.72 L (1.2-3.4) K/uL Orange # (Auto) 0.19 L (0.24-0.82) K/uL Eos # (Auto) 0.03 (0-0.50) K/uL Baso # (Auto) 0.01 (0-0.2) K/uL Reticulocyte # (0.02-0.10) 10^6/uL Immature Gran # (Auto) 0.00 (0.00-0.02) K/uL Absolute Nucleated RBC (0-0) K/uL Nucleated RBC % (auto) % Platelet Estimate Decreased L (Normal) Polychromasia 1+ Hypochromasia Present PT 11.2 (9.0-12.0) Seconds INR 1.1 (0.9-1.1) APTT 33.4 H (21.0-31.0) Seconds PTT Ratio 1.2 Sodium (136-145) mmol/L Potassium (3.5-5.1) mmol/L Chloride (98-107) mmol/L Carbon Dioxide (21-32) mmol/L Anion Gap (3-11) BUN (6-23) mg/dl Creatinine (0.6-1.4) mg/dl Est Cr Clr Drug Dosing Est GFR ( Amer) ml/min Est GFR (Non-Af Amer) ml/min BUN/Creatinine Ratio (10-20) Glucose (70-99(Fasting)) mg/dl Calcium (8.5-10.1) mg/dl Iron (35-175) mcg/dl Transferrin (200-360) mg/dl Ferritin (8-388) ng/ml Total Bilirubin (0.2-1.0) mg/dl AST (13-39) U/L ALT (7-52) U/L Alkaline Phosphatase (34-104) U/L Total Protein (6.0-8.3) gm/dl Albumin (3.4-5.0) gm/dl Globulin (2.5-4.0) gm/dl Albumin/Globulin Ratio (0.9-2) Vitamin B12 (180-914) pg/ml Folate (>5.38) ng/ml SARS-CoV-2, RNA, NAAT (NEGATIVE) Blood Type Antibody Screen Antibody Identification Antibody ID Comment Crossmatch
--- NOTE | 2022-02-16 14:21 | Hospitalist Progress Note ---
Date of Service February 16, 2022 Assessment & Plan (1) Symptomatic anemia: Plan: Acute on chronic anemia History chronic thrombocytopenia Patient is 56 y/o M with PMH vasculitis on prednisone, HTN, HLD, CKD III, schizoaffective disorder, bipolar disorder, chronic anemia, chronic thrombocytopenia, history of posttraumatic seizure disorder, hypothyroidism, DM II presented to ER for abnormal outpatient labs with Hgb: 7.5 on 02/14/22. +fatigue, Denies CP, SOB, increased dizziness, melena, hematochezia H/H in the ER 7.12/04. Baseline hemoglobin is 8.9-10. Hgb of 9.4 on 02/09/2022 per sister S/P 1 unit PRBC last night Hgb 9.5 today Hemoccult pending ( did not collect yet) Gastro on board EGD completed - No current indication for repeat examination Colonoscopy refused at first, but Sister who is the POA said pt will do it while in the hospital but he will not do it outpatient once discharge might consider to get a CT CTAP w/ IV and PO contrast recommended, will need to be cautious due to underline CKD disease Continue PO PPI 40mg daily Continue monitor H/H (2) Chronic kidney disease (CKD), stage III (moderate): Plan: Cr: 1.26. Baseline 1.4-1.6 Monitor renal functions avoid nephrotoxic agents when possible (3) Diabetes mellitus, type II: Plan: A1c: 5.4 on 02/01/22 Diet controlled (4) Hypertension: Plan: Continue amlodipine (5) Hypothyroidism: Plan: Continue levothyroxine (6) Vasculitis: Plan: On chronic prednisone Continue prednisone (7) GERD (gastroesophageal reflux disease): Plan: Continue oral PPI (8) Schizoaffective disorder, bipolar type: Plan: Continue duloxetine, Seroquel, topiramate (9) Recurrent UTI: Plan: Continue methenamine (10) Post-traumatic seizures: Plan: Continue divalproex DVT Prophylaxis SCDs due to low hgb Code status Full code Admission and Anticipated Discharge Date Admission Date: February 15, 2022 Subjective Pt was seen and examined for follow up of anemia Lying in bed with no acute distress He is not having any acute distress I spoke to Sister who is the POA, provided with update and answered all her questions Sister said that pt will be ok to do the colonoscopy while in the hospital but he will not go to the appointment to do it outpatient Denies any chest pain, palpitation, dizziness and SOB Review of Systems Review of Systems: All systems reviewed & are unremarkable except as noted in Subjective Physical Exam Physical Exam: General- No acute distress Head- atraumatic Eyes- PERRL, EOMI, ENT- oropharynx clear Neck- supple, no JVD Lungs- clear to auscultation Heart- regular rhythm; no murmur Abdomen- normal bowel sounds, soft, nontender Extremities- no calf tenderness Neuro- alert, oriented, PERRL, EOMI; no facial palsy Skin- warm & dry Results & Data Results & [facility]) Vital Signs (Past 12 Hours) Vital Signs Temp Pulse Pulse Resp BP Pulse Ox O2 Del Method 02/16/22 11:26 36.8 C 63 16 106/64 98 Room Air 02/16/22 06:21 54 L 02/16/22 06:18 36.4 C L 66 18 135/91 97 Room Air 02/16/22 03:12 66
[2022-02-16 19:21] LABS: Hematocrit (blood only) 31.8 % (40.1-51.0); Hemoglobin 9.9 g/dl (14.0-18.0)
[2022-02-16] MEDS: QUEtiapine FUMARATE 200 MG TAB PO SCH (20:47)
[2022-02-16] MEDS: DIVALPROEX DELAY RELEASE 250 MG TABEC PO SCH (20:48)
[2022-02-17] MEDS: LEVOTHYROXINE SODIUM 125 MCG TABLET PO SCH (05:53)
[2022-02-17] MEDS: MAGNESIUM OXIDE 400 MG TAB PO SCH (08:13)
[2022-02-17] MEDS: DOCUSATE SODIUM 100 MG CAP PO SCH (08:13)
[2022-02-17] MEDS: NYSTATIN POWDER 15GM BTL EXT SCH ×2 (08:13→13:34)
[2022-02-17] MEDS: DIVALPROEX DELAY RELEASE 500 MG TAB PO SCH (08:13)
[2022-02-17] MEDS: PANTOprazole 40 MG TAB PO SCH (08:13)
[2022-02-17] MEDS: amLODIPine BESYLATE 5 MG TAB PO SCH (08:13)
[2022-02-17] MEDS: DULoxetine HCL 60 MG CAP PO SCH (08:13)
[2022-02-17] MEDS: QUEtiapine FUMARATE 100 MG TABLET PO SCH ×2 (08:14→13:34)
[2022-02-17] MEDS: METHENAMINE HIPPURATE 1 GM TAB PO SCH (08:14)
[2022-02-17] MEDS: predniSONE 5 MG TAB PO SCH (08:14)
[2022-02-17] MEDS: TOPIRAMATE 100 MG TAB PO SCH (08:14)
[2022-02-17] MEDS: FERROUS SULFATE 325 MG TAB PO SCH (08:14)
[2022-02-17 08:58] LABS: Hematocrit (blood only) 30.9 % (40.1-51.0); Hemoglobin 9.9 g/dl (14.0-18.0); Mean Corpuscular Hemoglobin 29.2 pg (25.0-34.0); Mean Corpuscular Volume 91.2 fL (80.0-100.0); Mean Platelet Volume 8.6 fL (9.4-12.4); Nucleated RBC # (auto) 0.02 K/uL (0-0); Nucleated RBC % (auto) 0.4 %; Platelet Count 157 K/uL (130-400); RDW Coefficient of Variation 18.8 % (11.5-14.5); RDW Standard Deviation 62.7 fL (36.4-46.3); Red Blood Count 3.39 M/uL (4.63-6.08); White Blood Count 5.62 K/ul (4.8-10.8)
[2022-02-17 09:24] LABS: Calcium 9.4 mg/dl (8.5-10.1); Creatinine Clr Calc Pharmacy 55.6 ml/min; Est GFR (African American) 63.7 ml/min; Potassium 4.4 mmol/L (3.5-5.1)
--- NOTE | 2022-02-17 09:37 | Communication Note ---
Date of Service: February 17, 2022 GI was asked to re-evaluate for a colonoscopy as sister was hoping to get it completed while he was admitted to the hospital. Attempted to discuss colonos copy and offer arranging this examination for him. He became quite upset, using profanities, refusing examination and asking me to leave his room. Hospitalist updated. Called sister, ELISHA, who notes she will not pursue colonoscopy any further as this request has upset her brother and she would like to keep him as calm and comfortable as possible. 56 year old male admitted w/ symptomatic anemia, report of bruising on chest/arm without signs of GI blood loss. EGD/EUS 10/2021 reviewed. He has never had a colonoscopy but is not agreeable to examination Anemia - EGD completed 10/2021 - No current indication for repeat examination - Colonoscopy refused - If he is agreeable, encouraged to contact our office to schedule - CTAP w/ IV and PO contrast recommended - Hx of Peck's - Continue PO PPI 40 mg once daily - Will need EGD 2022 - Tobacco, ETOH avoidance, GERD dietary and lifestyle changes - Trend H&H, Transfuse PRN - Monitor/document output - No GI contraindication to diet as no evidence. Thank you for allowing us to participate in the care of this patient. Please call with any acute changes, questions or concerns. Please see addendum below with additional recommendation from my supervising physician. of GI bleeding and no current plan for endoscopic evaluation
--- NOTE | 2022-02-17 14:50 | Discharge Summary ---
Date of Service February 17, 2022 Admission HPI Per Admitting Provider Patient is 56 y/o M with PMH vasculitis on prednisone, HTN, HLD, CKD III, schizoaffective disorder, bipolar disorder, chronic anemia, chronic thrombocytopenia, history of posttraumatic seizure disorder, hypothyroidism, DM II presented to ER for abnormal outpatient labs with Hgb: 7.5. History obtained from patient, patient's sister and chart review. Patient had Outpatient labs drawn 02/14/2022 with hemoglobin of 7.5 and was referred to ER today. Patient reports has been feeling tired the past couple of days. Denies chest pain, shortness of breath, syncope. He reports chronic intermittent dizziness if he stands up too quickly, denies any increased symptoms. Patient reports last BM 4 days ago. Denies any noted melena, hematochezia. Patient sister reports his baseline hemoglobin is 8.9-10. Had hemoglobin of 9.4 on 02/09/2022 per sister. 2 weeks ago COVID-19 shot and then noticed bruising to left arm extending to left chest. Denies any falls and [place] manner denies any known falls. Patient denies any shoulder or chest discomfort. Sister reports he was in [facility] for psych issues in 12/2021 after his medications were discontinued and changed secondary to thrombocytopenia. She states he did not do well with doses of Haldol and caused paresthesias and urinary incontinence. History EGD and EUS in 10/2021 with no significant sign pathology in ampulla, common bile duct, visualized portion of liver, or pancreatic head and neck, 80mm cystic lesion seen in pancreatic body likely pancreatic pseudocyst. Patient has denied colonoscopy. Patient's sister said she was going with his wishes of not pursuing colonoscopy. Denies fever/chills, diaphoresis, N/V, ABBOTT, vision changes, neck pain, CP, SOB, orthopnea, palpitations, cough, sore throat, rhinorrhea, abdominal pain, extremity weakness, extremity edema, rashes, dysuria, hematuria. Denies NSAID use. Discharge Exam General- No acute distress Head- atraumatic Eyes- PERRL, EOMI, ENT- oropharynx clear Neck- supple, no JVD Lungs- clear to auscultation Heart- regular rhythm; no murmur Abdomen- normal bowel sounds, soft, nontender Extremities- no calf tenderness Neuro- alert, oriented, PERRL, EOMI; no facial palsy Skin- warm & dry Discharge Data Allergies Allergy/AdvReac Type Severity Reaction Status Date / Time bacitracin Allergy Intermediate Rash Verified 02/15/22 17:38 furosemide Allergy Intermediate Oral Verified 02/15/22 17:38 solution - rash neomycin Allergy Intermediate Rash Verified 02/15/22 17:38 polymyxin B Allergy Intermediate Rash Verified 02/15/22 17:38 Sulfa (Sulfonamide Allergy Intermediate Bactrim - Verified 02/15/22 17:38 Antibiotics) rash. sulfamethoxazole Allergy Intermediate Rash Verified 02/15/22 17:38 [From Bactrim] trimethoprim [From Bactrim] Allergy Intermediate Rash Verified 02/15/22 17:38 aspirin Allergy Unknown Nothing Verified 02/15/22 17:38 with Aspirin. Cephalosporins Allergy Unknown Unknown Verified 02/15/22 17:38 doxycycline Allergy Unknown ON LIST Verified 02/15/22 17:38 moxifloxacin Allergy Unknown Unknown Verified 02/15/22 17:38 Consultations 02/15/22 18:07 ED Decision to Admit Stat 02/16/22 08:00 Consult Gastroenterology Routine Hospital Course (1) Symptomatic anemia: Acute on chronic anemia History chronic thrombocytopenia Patient is 56 y/o M with PMH vasculitis on prednisone, HTN, HLD, CKD III, schizoaffective disorder, bipolar disorder, chronic anemia, chronic thrombocytopenia, history of posttraumatic seizure disorder, hypothyroidism, DM II presented to ER for abnormal outpatient labs with Hgb: 7.5 on 02/14/22. +fatigue, Denies CP, SOB, increased dizziness, melena, hematochezia H/H in the ER 7.12/04. Baseline hemoglobin is 8.9-10. Hgb of 9.4 on 02/09/2022 per sister S/P 1 unit PRBC last night Hgb 9.5 today Hemoccult pending ( did not collect yet) Gastro on board EGD completed - No current indication for repeat examination Colonoscopy refused at first, but Sister who is the POA said pt will do it while in the hospital but he will not do it outpatient once discharge might consider to get a CT CTAP w/ IV and PO contrast recommended, will need to be cautious due to underline CKD disease Continue PO PPI 40mg daily Continue monitor H/H (2) Chronic kidney disease (CKD), stage III (moderate): Cr: 1.26. Baseline 1.4-1.6 Monitor renal functions avoid nephrotoxic agents when possible (3) Diabetes mellitus, type II: A1c: 5.4 on 02/01/22 Diet controlled (4) Hypertension: Continue amlodipine (5) Hypothyroidism: Continue levothyroxine (6) Vasculitis: On chronic prednisone Continue prednisone (7) GERD (gastroesophageal reflux disease): Continue oral PPI (8) Schizoaffective disorder, bipolar type: Continue duloxetine, Seroquel, topiramate (9) Recurrent UTI: Continue methenamine (10) Post-traumatic seizures: Continue divalproex DVT Prophylaxis SCDs due to low hgb Code status Full code Discharge Plan Discharge Items Patient Disposition: Transfer Nursing Home Fac Reason For Visit: ANEMIA Discharge Diagnosis: Symptomatic anemia Acute on chronic anemia History chronic thrombocytopenia Chronic kidney disease (CKD), stage III (moderate): Diabetes mellitus, type II: Hypertension: Hypothyroidism: Vasculitis: GERD (gastroesophageal reflux disease): Schizoaffective disorder, bipolar type: Recurrent UTI: Post-traumatic seizures: Activity: Resume your previous activity Non-emergency contact: Primary Care Provider and [employer] Call non-emergency contact if: you have any medication questions Follow-up/Referrals: Don Watters MD [Primary Care Provider] - Diet: Heart Healthy Addtl Attending Provider Instructions: Follow up with your primary care provider within 1 week Follow up up with [facility] to arrange for the colonoscopy Check CBC in 1 week to monitor your hemoglobin Continue to avoid any NSAID such as Motrin, aleve, naproxen, ibuprofen Continue fall and seizure precaution You will need a routine outpatient CT abdomen and pelvis with IV and PO contrast as per gastroenterology Pending Studies at Discharge: No Stand-Alone Forms: My [facility] Skilled Items Patient informed of condition?: Yes DNR: No Discharge Level of Care: Skilled Communicable Disease: No Discharge Prognosis: Stable Lines: None Urinary Catheter: No Medications and DC Order Prescriptions: Continued duloxetine [Cymbalta] 60 mg Capsule,Delayed Release(Dr/Ec) 60 mg PO QAM prednisone 5 mg Tablet 5 mg PO DAILY acetaminophen [Tylenol] 325 mg Tablet 650 mg PO Q4H PRN (Reason: PAIN/FEVER) divalproex 250 mg Tablet,Delayed Release (Dr/Ec) 750 mg PO HS quetiapine [Seroquel] 200 mg Tablet 200 mg PO HS Rx Instructions: TOTAL DOSE AT HS 300 MG--TAKES WITH 100 MG TAB. divalproex 500 mg tablet,delayed release (DR/EC) 500 mg PO QAM tramadol 50 mg Tablet 50 mg PO Q8H PRN (Reason: Pain) quetiapine [Seroquel] 100 mg Tablet 100 mg PO TID acetaminophen 650 mg Tablet Extended Release 650 mg PO QAM methenamine hippurate [Hiprex] 1 gram Tablet 1 g PO BID magnesium hydroxide [Milk of Magnesia] 400 mg/5 mL Suspension 30 ml PO DAILY PRN (Reason: NO BM FOR 3 DAYS.) amlodipine 10 mg tablet 10 mg PO QAM bisacodyl 10 mg Suppository 10 mg GA DAILY PRN (Reason: Constipation) pantoprazole 40 mg Tablet,Delayed Release (Dr/Ec) 40 mg PO DAILY ferrous sulfate 325 mg (65 mg iron) Tablet 325 mg PO BID levothyroxine 125 mcg tablet 125 mcg PO QAM docusate sodium 100 mg Capsule 100 mg PO BID nystatin 100,000 unit/gram Powder 1 applic TOPICAL TID Rx Instructions: groin topiramate 100 mg Tablet 100 mg PO BID cholecalciferol (vitamin D3) [Vitamin D3] 25 mcg (1,000 unit) Capsule 25 mcg PO QAM menthol Gel 1 applic TOPICAL Q8H PRN (Reason: Pain) magnesium oxide 400 mg magnesium Tablet 400 mg PO QAM Discharge Orders: Discharge Order (Routine); Ordered 02/17/22 Ordered By: Logan Aparicio Admission Data Admit Date/Time: 02/15/22 18:18 Attending Provider: Logan Aparicio Admit Provider: Logan Aparicio Primary Care Provider: Don Watters Other Providers: Logan Aparicio ; Jose Rich Other Interventions: Discharge Summary Assessment (RN) Last Done: 02/17/22 14:36
== END 2022-02-17 15:58 | DRG 812 ==
LOC: ED 15:02 → 2N 18:18